=== PATIENT | female | born 1965 | race Caucasian/White ===

== ENCOUNTER → 2019-08-17 07:49 | Outpatient (CLI) | payer OTHER, SELFPAY ==
[2019-08-17 07:46] VITALS: BMI 26.6
--- NOTE | 2019-08-17 07:52 | RAD_ITS ---
STUDY: X-RAY CHEST REASON FOR EXAM: Female, 54 years old. TECHNIQUE: 2 views COMPARISON: April 09, 2017 FINDINGS: The lungs are clear and expanded. There is no demonstrated pleural abnormality. Normal size heart. Normal mediastinum and juan. Normal visualized pulmonary arteries. Normal visualized aortic arch and descending thoracic aorta. Normal visualized thoracic spine. Normal visualized ribs, clavicles, and shoulders. There is no demonstrated abnormality of the visualized soft tissue structures of the upper abdomen. RAD/Chest PA and Lateral IMPRESSION: Normal x-ray examination of the chest unchanged since April 09, 2017. Electronically Signed: Mesha Fraser, at 8:12 EST Tel , Service support ,
== END ==
PROVIDERS: Family Provider Internal Medicine; PCP Internal Medicine; Referring Provider Physician Assistant Surgical; Visit Provider Physician Assistant Surgical
DX: J20.9 Acute bronchitis, unspecified (principal)
CPT/HCPCS: 71046

== ENCOUNTER → 2019-11-22 | Outpatient (CLI) | payer OTHER, SELFPAY ==
[2019-11-22 16:49] VITALS: BMI 26.6
--- NOTE | 2019-11-22 17:00 | RAD_ITS ---
STUDY: X-RAY - RIGHT SHOULDER REASON FOR EXAM: Female, 54 years old. Pain, diminished range of motion TECHNIQUE: 5 view(s) of the shoulder. COMPARISON: None. FINDINGS: Normal glenohumeral articulation. Normal acromioclavicular joint. Normal acromion. Normal humeral head and visualized proximal humerus. The soft tissue structures are unremarkable. Normal visualized pulmonary apex. RAD/Shoulder min 2 Views IMPRESSION: Normal x-ray examination of the shoulder. Electronically Signed: Nito Magana MD at 18:33 EST , Service support ,
== END | disposition home or self-care (01) ==
LOC: MTRAD 17:00
PROVIDERS: PCP Internal Medicine; Referring Provider Physician Assistant Surgical; Visit Provider Physician Assistant Surgical
DX: S40.011A Contusion of right shoulder, initial encounter (principal)
CPT/HCPCS: 73030

== ENCOUNTER 2020-01-30 06:38 | Emergency (ER) | payer OTHER, SELFPAY ==
[2019-11-22 17:17] VITALS: BMI 27.4
[2020-01-30 06:39] VITALS: BP 148/80; PULSE 88; RESP 16; TEMP 36.7; O2SAT 98; BMI 27.4
--- NOTE | 2020-01-30 07:12 | ED.VIS.GEN ---
History of Present Illness Chief Complaint: Other, Pain/Inj Detail of Chief Complaint: RUE pain Informant: Patient Onset: Yesterday Context: Gradual Onset Timing: Continuous Quality: burning numbness Location: RUE Current Severity: Mild Maximum Severity: Severe Worsened by: nothing Relieved by: nothing that she knows of Associated Symptoms: arthralgias. numbness. 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 She also has fibromyalgia and is sensitive to pain. She has had many different medication trials and trying to keep her rheumatoid arthritis under control, and she has had many unusual medication reactions to many of these medications. Therefore, she has been on methotrexate which has been working. However, during the recent national coronavirus emergency, she has discontinued her methotrexate in order to avoid immunosuppression. She has been off of that medication for about 2 months. In that period of time, she has gradually had worsening arthralgias and stiffness. This is in her extremities and her back/spine. Yesterday she started having painful numbness in her right upper extremity. The burning goes down the anterior aspect of her upper arm, into her forearm, and all of her fingers. It persisted all night and into this morning, so she presented for evaluation of this discomfort she has never had before and assumed that it was related to her rheumatoid arthritis. She states for unknown reason, although she could not find any position that made the discomfort better or worse, upon arrival here in the ER it is much improved and basically just affecting her right thumb and distal forearm/wrist at the radial aspect. She has a history of sciatica that left her with relatively permanent numbness in her right great toe, in the past from a disc in her low back. She had an MRI remotely but cannot remember exactly what it showed. She has never had this in her neck that she knows of. She denies any recent injury. She denies headache, diplopia, bowel or bladder dysfunction, focal new neurologic symptoms elsewhere other than the right upper extremity. She denies any chest pain shortness of breath. No exertional worsening/symptoms. - Past Medical History (1) Fibromyalgia Status: Chronic (2) GERD (gastroesophageal reflux disease) Status: Chronic (3) History of hypothyroidism Status: Chronic (4) History of rheumatoid arthritis Status: Chronic (5) Raynaud phenomenon Status: Chronic (6) Calcific tendinitis of right shoulder Status: Chronic Past Medical History - Allergies and Home Meds Allergies/Adverse Reactions: Allergies Iodinated Contrast Media [CONTRASTS] Allergy (Severe, Verified 01/30/20 06:46) Shortness of breath cephalexin monohydrate [From Keflex] Allergy (Verified 01/30/20 06:46) Shortness of breath Primary Care Physician: Caron Leung MD [Primary Care Provider] - Surgical History: noncontributory Smoking Status: Never smoker Review of Systems General: Denies: Chills, Fever, Sweats Eyes: Denies: Visual changes - bilaterally, Diplopia ENT: Denies: Rhinorrhea, Sore throat Cardiovascular: Denies: Chest pain, Palpitations Respiratory: Denies: Dyspnea, Cough, Dyspnea on exertion Gastrointestinal: Denies: Abdominal pain, Nausea, Vomiting, Diarrhea, Melena, Hematochezia Genitourinary: Denies: Dysuria, Hematuria, Frequency Musculoskeletal: Reports: Arthralgias, Extremity Pain - Right upper extremity, including chronic pain in the right shoulder.. Denies: Neck pain Skin: Denies: Rash, Wounds Neurological: Reports: Parasthesia, Numbness. Denies: Headache, Weakness Physical Exam Vital Signs/Narrative: Vital Signs Temp Pulse Resp BP Pulse Ox 01/30/20 06:39 98.0 F 88 16 148/80 H 98 Inital Vital Signs reviewed: Yes General: Well nourished, Well developed, No Acute Distress Head: Normocephalic, Atraumatic Eyes: Perrl, EOMI Extremities: Tenderness - diffuse anterior right forearm, thumb, - - Patient is able to move everything but relative limited range of motion due to pain in all of her joints. No obvious Heberden or Shukri's nodes, no deviation of her fingers. Limited abduction of the right shoulder due to pain. Skin: Normal color, No rash, No Trauma Neurological: Alert, Oriented x3, Cranial nerves II-XII grossly intact, Normal Strength, Normal DTR - Symmetric, Normal Gait, Parasthesia - Right thumb and volar forearm Psychological: Normal affect, Normal Mood Diagnostic/Tx/Re-eval - Medical Decision Making I suspect patient is having 2 different problems. I think she is having a general gradual flare of her rheumatoid arthritis, and a cervical radiculopathy. Given that her symptoms are improved and she has no subjective or objective weakness, I do not think she meets any criteria for a stat MRI. However, I think an MRI of the cervical spine will probably give the answer for why she is having this new dysesthesia of the right upper extremity, which seems to involve multiple nerve roots. I discussed treating both of her issues. First, she has tramadol at home, but uses Tylenol and ibuprofen as needed for her rheumatoid arthritis pain. We discussed starting her methotrexate back, putting her on a short course of prednisone, and stronger prescription medications. She really does not want any of that at this time but will be happy to follow-up with her veterans rehabilitation counselor regarding all of those. Also, I discussed trying gabapentin for her radicular pain. She states she has a prescription at home, but with further discussion it seems that it is much lower dose than I typically prescribed for radicular or neuropathic pain. She is willing to try the higher dose, which is 300 mg 3 times daily, tapering it up over 3 days. She accepted a prescription and prefers to do started at home rather than a pill here. She will follow-up with her veterans rehabilitation counselor or PCP. ED Disposition - Plan for ED Patient: Disposition: Home or Assisted Living Diagnosis: Radiculopathy, cervical, Rheumatoid arthritis flare Instructions: ED CERVICAL RADICULOPATHY Prescriptions: Gabapentin [Neurontin] 300 mg PO TID 30 Days #87 cap Prescription Printed Referrals: Caron Leung MD [Primary Care Provider] - As soon as possible (or your Food Cashier)
== END 2020-01-30 07:36 | disposition home or self-care (01) ==
LOC: ED 07:20
PROVIDERS: Emergency Provider Emergency Medicine; PCP Internal Medicine
DX: M06.9 Rheumatoid arthritis, unspecified (principal); M54.10 Radiculopathy, site unspecified; M79.7 Fibromyalgia; K21.9 Gastro-esophageal reflux disease without esophagitis; Z79.899 Other long term (current) drug therapy
CPT/HCPCS: 99282

== ENCOUNTER 2020-12-20 07:58 | Emergency (ER) | payer OTHER, SELFPAY ==
[2020-12-20 07:59] VITALS: BP 137/73; PULSE 101; RESP 18; TEMP 36.4; O2SAT 99; BMI 24.1
--- NOTE | 2020-12-20 08:07 | EKG12_ITS ---
Test Reason : PALP Blood Pressure : / mmHG Vent. Rate : 089 BPM Atrial Rate : 089 BPM P-R Int : 176 ms QRS Dur : 076 ms QT Int : 348 ms P-R-T Axes : 068 -08 058 degrees QTc Int : 423 ms Normal sinus rhythm Low voltage QRS (Limb Leads) Confirmed by CHELSEA MONTERROSO, LINDSAY ([id number]), web editor DALTON SAEZ ([id number]) on 12/27/2020 8:20:21 AM Referred By: PARISH Confirmed By:LINDSAY TRAN MD
[2020-12-20 08:35] LABS: Absolute Lymphocyte Count 1.36 X10^3/uL (0.83-4.51); Absolute Neutrophil Count 3.9 X10^3/uL (2.0-7.7); Basophil# 0.02 X10^3/uL; Basophil% 0.3 % (0-1); Eosinophil# 0.16 X10^3/uL; Eosinophils% 2.6 % (0-5); Hematocrit 34.7 % (37-47); Hemoglobin 11.5 g/dL (12.0-15.0); Lymphocyte # 1.36 X10^3/ul (4.0); Lymphocyte % 22.4 % (19-41); Mean Corp Hgb Conc 33.1 g/dL (32-36); Mean Corpuscular Hgb 31.3 pg (27.0-32.0); Mean Corpuscular Volume 94.3 fL (81-99); Mean Platelet Vol. 9.1 fl (6.2-12.0); Monocyte# 0.58 X10^3/uL; Monocyte% 9.6 % (0-10); NRBC Flagged by Analyzer 0 % (0-5); Neutrophil # 3.93 X10^3/uL (2.7-7.7); Neutrophil % 64.8 % (47-70); Platelet Count 323 K/mm3 (150-450); RBC Distribution Width CV 14.5 % (11.6-14.6); RBC Distribution Width SD 50.3 fl (35.1-43.9); Red Blood Count 3.68 M/mm3 (4.2-5.4); White Blood Count 6.1 K/mm3 (4.4-11.0)
--- NOTE | 2020-12-20 08:45 | RAD_ITS ---
STUDY: X-RAY CHEST REASON FOR EXAM: Female, 55 years old. Chest pain . Palpitations. TECHNIQUE: Single AP portable view of the chest. COMPARISON: Comparison is made with prior study dated the 1999. FINDINGS: Mild increased markings in the right infrahilar region as well as at the left lung base. Early infiltration be ruled out. There is no demonstrated pleural abnormality. Normal size heart. Normal mediastinum and juan. Normal visualized pulmonary arteries. Normal visualized aortic arch and descending thoracic aorta. Normal visualized thoracic spine. Normal visualized ribs, clavicles, and shoulders. There is no demonstrated abnormality of the visualized soft tissue structures of the upper abdomen. RAD/Chest 1 View (Portable) IMPRESSION: Findings suggestive of early bibasilar infiltrates. Electronically Signed: Emory Carranza MD at 9:19 EDT , Service support ,
[2020-12-20] MEDS: Ondansetron 4 MG/2 ML Vial IV (08:50)
[2020-12-20] MEDS: 0.9% Normal Saline 1,000 ML 1000 ML IV (08:50)
[2020-12-20 08:56] VITALS: BP 124/64; PULSE 73; RESP 14; O2SAT 96
[2020-12-20 08:58] LABS: Anion Gap 4 (5-15); BUN 13 mg/dL (7-18); BUN/Creat Ratio 18.1 RATIO (10-20); Calcium,Total 9.6 mg/dL (8.5-10.1); Chloride 105 mmol/L (98-107); Creatinine, Serum 0.72 mg/dL (0.55-1.02); EST Glomerular Filtration Rate 89 mL/min (>60); Est Glom Filt Rate - Afr Amer 107 mL/min (>60); Estimated Creatinine Clearance 77.57 ml/min; Glucose 108 mg/dL (74-106); Magnesium 2.3 mg/dL (1.6-2.6); Potassium 3.8 mmol/L (3.5-5.1); Sodium Level 138 mmol/L (136-145); Thyroid Stim Hormone (TSH) 1.11 uIU/mL (0.358-3.74)
[2020-12-20 09:00] VITALS: BP 102/57; PULSE 83; RESP 17; O2SAT 94
--- NOTE | 2020-12-20 10:24 | ED.DCSUM_ITS ---
- ER Visit Summary Date of Service: 12/20/20 Chief Complaint: Palpitations History of Present Illness: The patient is a [address] Leung. She reports that last evening she had an episode of palpitations last approximately 10 minutes. She received describes this is a fast irregular heart rate. She denied any chest pain with it. She does report that made her nauseated and lightheaded. States that she has had this previously, but that they are usually brief. Patient reports that this morning she had an episode where her heart was racing and she measured and it was 110. It resolved on the way here. She denies any chest pain with that either. She has not had any caffeine today. She denies any chest pain or change in dyspnea exertion in the past month. Patient does have history of rheumatoid arthritis and is on methotrexate. She reports that she has a cough that is nonproductive. She denies any fever or chills. She reports that she tested negative for Covid 2 days ago. Physical Examination: Vitals: Stable. Afebrile. General: Well-nourished and well-developed. Head: Normocephalic atraumatic. Neck: Supple, no lymphadenopathy. No JVD. Nontender. Cardiovascular: Regular rate and rhythm. No murmurs. Respiratory: No respiratory distress. Clear to auscultation bilaterally. Abdominal: Soft, nontender, nondistended, normal bowel sounds. No guarding, rebound, or peritoneal signs. Back: Nontender. Extremities: Nontender, no edema. Skin: Normal color, no rash. Neurologic: Alert and oriented ?3. Cranial nerves II through XII are intact. Normal strength and sensation. Psych: Normal affect. Test Results: EKG is sinus at [address] changes. Is unchanged from 2014. Troponin is negative. CBC shows an H&H 11.5 and 34.7. Chem-7 shows a glucose 108. TSH is 1.11. Magnesium is 2.3. Clinical Impression(s) from Imaging Studies Chest X-Ray 12/20/20 08:45 IMPRESSION: Findings suggestive of early bibasilar infiltrates. Electronically Signed: Emory Carranza MD at 9:19 EDT , Service support , Emergency Department Course and Treatment: Given Zofran IV. She is resting comfortably. I looked at the patient's old chest x-ray and it looks similar to me. However, given her history of rheumatoid arthritis and on immunosuppressants she will be treated with doxycycline. Treatment Plan: Patient was discussed with Dr. Stinson. She will be discharged with 24-hour Holter monitor. She given prescription for doxycycline and Dif lucan. Instructed to follow-up with her primary care physician in 1 week for another exam. Return to the emergency department for any worsening symptoms. Disposition: To home in improved and stable condition. Impression: 1. Palpitations. This note was generated with [employer] dictation software. It may contain incorrect words, spelling, and punctuation that were not noted in review of the chart prior to signing ED Disposition - Plan for ED Patient: Instructions: ED Palpitations Prescriptions: Fluconazole [Diflucan] 150 mg PO DAILY #2 tablet Doxycycline 100 mg PO BID #14 capsule Referrals: Caron Leung MD [Primary Care Provider] - 1 Week
[2020-12-20] MEDS: Doxycycline 100 MG CAPSULE PO (11:33)
[2020-12-20 11:42] VITALS: BP 102/51; PULSE 79; RESP 16; O2SAT 100
--- NOTE | 2020-12-20 11:42 | ED.RN ---
THIS NURSE REVIEWED D/C INSTRUCTIONS WITH PT. PT VERBALIZED UNDERSTANDING OF INSTRUCTIONS. IV D/C. IV CATHETER INTACT. PT TOLERATED WELL. PT DENIES FURTHER NEEDS OR QUESTIONS AT THIS TIME. WORK EXCUSE GIVEN TO PT AND
== END 2020-12-20 11:44 | disposition home or self-care (01) ==
LOC: ED 08:35
PROVIDERS: Emergency Provider Emergency Medicine; PCP Internal Medicine
DX: R00.2 Palpitations (principal); M06.9 Rheumatoid arthritis, unspecified; Z79.899 Other long term (current) drug therapy
CPT/HCPCS: 71045; 80048; 83735; 84443; 84484; 85025; 93005; 93225; 93226; 96361; 96374; 99285; J7030; A4216; J2405

== ENCOUNTER → 2020-12-20 11:00 | Outpatient (CLI) | payer OTHER, SELFPAY ==
[2020-12-20 07:59] VITALS: BMI 24.1
== END ==
PROVIDERS: PCP Internal Medicine; Visit Provider Emergency Medicine
DX: R00.2 Palpitations (principal)
CPT/HCPCS: 93225; 93226

== ENCOUNTER 2021-02-09 14:30 | Emergency (ER) | payer OTHER, SELFPAY ==
[2021-02-09 14:32] VITALS: BP 163/77; PULSE 96; RESP 21; TEMP 37.1; O2SAT 98; BMI 25.4
--- NOTE | 2021-02-09 14:48 | EKG12_ITS ---
Test Reason : PALP Blood Pressure : / mmHG Vent. Rate : 086 BPM Atrial Rate : 086 BPM P-R Int : 180 ms QRS Dur : 074 ms QT Int : 360 ms P-R-T Axes : 069 014 065 degrees QTc Int : 430 ms Normal sinus rhythm Normal ECG Confirmed by SAMI MONTERROSO, ZEE ([id number]), newspaper managing editor PACO GAMING ([id number]) on 02/13/2021 10:12:22 A M Referred By: USAMA Confirmed By:MATTY GALLARDO MD
--- NOTE | 2021-02-09 14:49 | EDS_ITS ---
HPI History of Present Illness Chief Complaint: Palpitations Narrative Narrative: 56-year-old female presenting with epigastric discomfort. She describes it as squishy. She states he has had this a couple times in the past. She noted that December 25 she had to go home from work because her heart rate was 140 for 10 minutes. She followed up with Dr. Crowe her landing support specialist who did an echocardiogram which was normal. She states she just did a stress test yesterday which was also normal. Patient states she ate some pasta with red sauce prior to her symptoms. She does note that she has a long history of stomach problems. She does describe GERD. She states is not on anything for this currently. Patient also takes doxycycline and prednisone daily. [facility] Medical History AC joint arthropathy Acute bronchitis Anemia Arthritis Asthma Back pain Calcific tendinitis of right shoulder Contusion of right shoulder Diarrhea Difficulty balancing Esophageal tissue web Fatigue Fibromyalgia Frequent headaches GERD (gastroesophageal reflux disease) Hay fever History of esophageal dilatation History of rheumatoid arthritis Hypothyroidism Knee pain Neck pain Raynaud phenomenon Rheumatoid arthritis Rheumatoid arthritis flare Treadmill stress test negative for angina pectoris Home Medications thyroid (pork) 60 mg tablet 60 mg PO DAILY 08/15/19 [History Last Taken Unknown] folic acid 1 mg tablet 1 tab PO DAILY 11/22/19 [History Last Taken Unknown] Acetaminophen [Tylenol] 650 mg PO BID 12/20/20 [History Last Taken Unknown] meloxicam 1 tablet PO DAILY 12/20/20 [History Last Taken Unknown] famotidine [Pepcid AC] 10 mg PO DAILY #20 tab 02/09/21 [Rx Last Taken Unknown] gabapentin 300 mg PO DAILY 02/09/21 [History Last Taken Unknown] methotrexate sodium 12.5 mg PO DAILY 02/09/21 [History Last Taken Unknown] omeprazole 20 mg PO DAILY #30 capsule 02/09/21 [Rx Last Taken Unknown] prednisone 5 mg PO DAILY 02/09/21 [History Last Taken Unknown] Allergy/AdvReac Type Severity Reaction Status Date / Time Iodinated Contrast Media Allergy Severe Shortness Verified 02/09/21 14:31 [CONTRASTS] of breath cephalexin monohydrate Allergy Shortness Verified 02/09/21 14:31 [From Keflex] of breath Surgical History History of knee surgery History of tubal ligation Social History Smoking Status: Never smoker alcohol intake: never ROS ROS ED Constitutional Constitutional ED: Denies chills, fever(s) or sweats Eyes Eyes: Denies blurry vision or change in vision ENT ENT ED: Denies ear pain, rhinorrhea or sore throat Cardiovascular Cardiovascular: Denies chest pain, palpitations or racing heartbeat Respiratory/Chest Respiratory/Chest: Denies cough, dyspnea or sputum Gastrointestinal Gastrointestinal: Reports abdominal pain and other Details: Epigastric pain ; Denies constipation, diarrhea or vomiting Genitourinary Genitourinary ED: Denies dysuria, hematuria or urinary frequency Musculoskeletal Musculoskeletal: Denies arthralgias, myalgias or neck pain Integumentary Denies abscess, Abrasions or rash Neurologic Neurologic: Denies headache(s), paresthesias or weakness Psychiatric Psychiatric: Denies anxiety, depression, suicidal ideation or suicidal thoughts Endocrine Endocrinology: Denies polydipsia or polyuria EXAM Physical Exam Const Vital Signs: 02/09/21 14:32 02/09/21 14:39 02/09/21 14:54 Temperature 98.7 F Temperature Source Oral Pulse Rate 96 Respiratory Rate 21 H Respiratory Effort Normal Non-Labored Respiratory Pattern Normal Blood Pressure 163/77 H Blood Pressure Mean 105 Pulse Ox 98 96 Oxygen Delivery Method Room Air Room Air 02/09/21 15:33 Temperature Temperature Source Pulse Rate 86 Respiratory Rate 17 Respiratory Effort Respiratory Pattern Blood Pressure 110/60 Blood Pressure Mean 76 Pulse Ox 97 Oxygen Delivery Method Room Air General Appearance ED: Negative for pallor HEENT Reports normocephalic, head/scalp atraumatic and moist mucous membranes Negative for trauma Eyes PERRL and EOMs intact bilaterally Neck no JVD Resp normal respiratory effort and clear to auscultation bilaterally Auscultation: Negative for rales, rhonchi or wheezes Cardio regular rate and regular rhythm GI normal to inspection, nondistended, normoactive bowel sounds and non-distended Auscultation: normoactive bowel sounds Palpation: soft Narrative: Deferred Back/Spine no CVA tenderness General Back: Negative for CVA tenderness Cervical Spine: Negative for cervical spine tenderness Extremity normal to inspection General Extremety ED: Yes edema and tenderness General Extremity: edema Neuro oriented x3 and CN's II-XII intact bilaterally Sensorium / Orientation: alert Motor Exam: strength 5/5 throughout Psych mental status grossly normal Attitude: No agitated Skin no rashes or lesions noted and no wounds General Skin Exam: Negative for jaundice or pallor MDM MDM MDM Narrative Medical decision making narrative: Patient presented with epigastric pain which resolved. She states he is recently had an echocardiogram which is normal as well as a stress test yesterday which was normal. She does state that she ate some pasta with red sauce prior to her symptoms and does state that she has history of GERD and she is not on medication. Patient currently has no symptoms. Patient had EKG performed on arrival which is sinus rhythm at 86 bpm without signs of ischemic changes as interpreted by myself. Patient's heart score is 0. Patient's lab work is normal. Troponin is negative. Chest x-ray is interpreted by myself shows no acute cardiopulmonary process. Radiology does agree. Patient's heart score is still 1. I was able to review her history and Clinisync and did see that she had a negative stress test yesterday. Given this I feel she is safe to be discharged home. Patient was counseled on GERD symptoms as well as she has been experiencing this. I wrote her prescription for Pepcid in the short-term and she will start omeprazole. She is given return precautions. Impression: 1. Epigastric pain Lab Data Labs: Laboratory Results - last 24 hr 02/09/21 02/09/21 14:50 14:50 WBC 9.7 RBC 3.52 L Hgb 10.8 L Hct 32.7 L MCV 92.9 MCH 30.7 MCHC 33.0 RDW Std Deviation 45.9 H RDW Coeff of [place] 13.6 Plt Count 443 MPV 9.3 Immature Gran % (Auto) 0.400 Neut % (Auto) 78.9 H Lymph % (Auto) 15.3 L [place] % (Auto) 4.9 Eos % (Auto) 0.1 Baso % (Auto) 0.4 Absolute Neuts (auto) 7.6 Absolute Lymphs (auto) 1.48 Nucleated RBC % 0 Sodium 137 Potassium 4.1 Chloride 102 Carbon Dioxide 28.0 Anion Gap 7 BUN 19 H Creatinine 0.81 Estim Creat Clear Calc 68.12 Est GFR (MDRD) Af Amer 93 Est GFR (MDRD) Non-Af 77 BUN/Creatinine Ratio 23.3 H Glucose 97 Calcium 9.5 Total Bilirubin 0.30 Direct Bilirubin 0.10 AST 16 ALT 24 Alkaline Phosphatase 111 Troponin I < 0.015 Total Protein 8.2 Albumin 3.9 Globulin 4.3 H Lipase 127 Radiography Diagnostic Testing: Radiology Impression Chest X-Ray 02/09/21 14:58 IMPRESSION: No acute pulmonary process Electronically Signed: Nito Magana MD at 15:08 EDT , Service support , Discharge Plan Triage Chief Complaint: Palpitations ED Provider: Nj Marques Dx/Rx/DC Orders Instructions: ED Epigastric Pain (Uncertain Cause) Prescriptions: New omeprazole 20 mg capsule,delayed release(DR/EC) 20 mg PO DAILY Qty: 30 RF: 0 famotidine [Pepcid AC] 10 mg tablet 10 mg PO DAILY Qty: 20 RF: 0 No Action thyroid (pork) [New Era Thyroid] 60 mg tablet 60 mg PO DAILY RF: 0 folic acid 1 mg tablet 1 tab PO DAILY RF: 0 Acetaminophen [Tylenol] 325 MG tablet 650 mg PO BID RF: 0 meloxicam 15 MG tablet 1 tablet PO DAILY RF: 0 prednisone 5 mg tablet 5 mg PO DAILY RF: 0 methotrexate sodium 2.5 mg tablet 12.5 mg PO DAILY RF: 0 gabapentin 100 mg capsule 300 mg PO DAILY RF: 0 Primary Care Provider: Fran Peguero Referrals: Fran Peguero MD [Primary Care Provider] -
[2021-02-09 14:54] VITALS: O2SAT 96
--- NOTE | 2021-02-09 14:58 | RAD_ITS ---
STUDY: X-RAY CHEST REASON FOR EXAM: Female, 56 years old. Chest pain/pressure TECHNIQUE: Single AP portable view of the chest. COMPARISON: 12/20/2020 FINDINGS: EKG leads overlie the chest The lungs are clear and expanded. There is no demonstrated pleural abnormality. Normal size heart. Normal mediastinum and juan. Normal visualized pulmonary arteries. Normal visualized aortic arch and descending thoracic aorta. Normal visualized thoracic spine. Normal visualized ribs, clavicles, and shoulders. There is no demonstrated abnormality of the visualized soft tissue structures of the upper abdomen. RAD/Chest 1 View (Portable) IMPRESSION: No acute pulmonary process Electronically Signed: Nito Magana MD at 15:08 EDT , Service support ,
[2021-02-09 15:14] LABS: Absolute Lymphocyte Count 1.48 X10^3/uL (0.83-4.51); Absolute Neutrophil Count 7.6 X10^3/uL (2.0-7.7); Basophil# 0.04 X10^3/uL; Basophil% 0.4 % (0-1); Eosinophil# 0.01 X10^3/uL; Eosinophils% 0.1 % (0-5); Hematocrit 32.7 % (37-47); Hemoglobin 10.8 g/dL (12.0-15.0); Lymphocyte # 1.48 X10^3/ul (0.83-4.51); Lymphocyte % 15.3 % (19-41); Mean Corpuscular Hgb 30.7 pg (27.0-32.0); Mean Corpuscular Volume 92.9 fL (81-99); Mean Platelet Vol. 9.3 fl (6.2-12.0); Monocyte# 0.47 X10^3/uL; Monocyte% 4.9 % (0-10); NRBC Flagged by Analyzer 0 % (0-5); Neutrophil # 7.64 X10^3/uL (2.7-7.7); Neutrophil % 78.9 % (47-70); Platelet Count 443 K/mm3 (150-450); RBC Distribution Width CV 13.6 % (11.6-14.6); RBC Distribution Width SD 45.9 fl (35.1-43.9); Red Blood Count 3.52 M/mm3 (4.2-5.4); White Blood Count 9.7 K/mm3 (4.4-11.0)
[2021-02-09 15:28] LABS: AST(SGOT) 16 U/L (15-37); Alanine Aminotransfer ALT/SGPT 24 U/L (13-56); Albumin, Serum 3.9 g/dL (3.2-5.0); Alkaline Phosphatase 111 U/L (45-117); Anion Gap 7 (5-15); BUN 19 mg/dL (7-18); BUN/Creat Ratio 23.3 RATIO (10-20); Calcium,Total 9.5 mg/dL (8.5-10.1); Chloride 102 mmol/L (98-107); Creatinine, Serum 0.81 mg/dL (0.55-1.02); EST Glomerular Filtration Rate 77 mL/min (>60); Est Glom Filt Rate - Afr Amer 93 mL/min (>60); Estimated Creatinine Clearance 68.12 ml/min; Globulin 4.3 g/dL (2.2-4.2); Glucose 97 mg/dL (74-106); Lipase 127 U/L (73-393); Potassium 4.1 mmol/L (3.5-5.1); Protein, Total 8.2 g/dL (6.4-8.2); Sodium Level 137 mmol/L (136-145)
[2021-02-09 15:33] VITALS: BP 110/60; PULSE 86; RESP 17; O2SAT 97
[2021-02-09 16:44] VITALS: BP 104/59; PULSE 73; RESP 18; O2SAT 98
== END 2021-02-09 16:44 | disposition home or self-care (01) ==
PROVIDERS: Emergency Provider Student in an Organized Health Care Education/Training Program; PCP Family Medicine
DX: R00.2 Palpitations (principal); M06.9 Rheumatoid arthritis, unspecified; J45.909 Unspecified asthma, uncomplicated; M79.7 Fibromyalgia; K21.9 Gastro-esophageal reflux disease without esophagitis; E03.9 Hypothyroidism, unspecified; Z79.52 Long term (current) use of systemic steroids; Z79.899 Other long term (current) drug therapy
CPT/HCPCS: 71045; 80048; 80076; 83690; 84484; 85025; 93005; 99284; A4216

== ENCOUNTER 2021-02-26 17:30 | Outpatient (RCR) | payer OTHER, SELFPAY ==
--- NOTE | 2021-02-26 19:10 | HP.PTEVAL ---
Patient's Visit Information JOSS LAWRENCE is a 56 year old F referred to Physical Therapy by MARK RHODES with a diagnosis of LUMBAR SPONDYLOSIS AND R LUMBAR RADICULITIS. Date of Evaluation: 02/26/21 Physical Therapist: Татьяна Godinez, PT, Cert MDT - Visit Plan Frequency: 2-3x /Week Duration: 4-6 Weeks Plan: [facility] AND [facility] [employer] PATIENTS NEW WORK SCHEDULE WILL ALLOW FOR POSTURE CORRECTION/STRENGTHENING, INSTRUCTION IN APPROPRIATE BODY MECHANICS AND ACTIVITY MODIFICATIONS. DLS STARTING WITH A NEUTRAL SPINE PROGRESSING ROM TOLERATED. KIERRA LE ROM, STRETCHING AND STRENGTHENING. HEP INSTRUCTION. 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 SITTING. 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 Disability: NO. Present symptoms: CONSTANT LOW BACK PAIN. CONSTANT RIGHT LE PAIN, NUMBNESS AND TINGLIN TO THE TOES. INTERMITTENT LEFT BUTTOCK PAIN, NUMBNESS AND TINGLING. Present since: ABOUT 18 MONTHS AGO. Pain Scale: WORST 8/10, LEAST 3/10. Currently: 5/10. Commenced as a result of: NO APPARENT REASON. Symptoms at onset: A WARM FEELING GOING DOWN BOTH LEGS. Worse: STANDING, WALKING, LYING FLAT ON BACK, LYING PRONE, R SDLY. Better: PREDNISONE, MALOXACAM. Disturbed sleep: YES. Previous history/Previous treatment: CONSULT WITH DR. RHODES WITH THE [facility] - ONE VISIT. PT CONSULT FROM DR. RHODES FOR RADICULITIS. PATIENT REPORTS SHE HAS BEEN GOING TO A [facility] MOST OF HER LIFE. NO BACK SURGERY. NO PAIN MGMT OR BLAYNE'S. NO PRIOR PT FOR BACK. Coughing/sneezing: NEGATIVE. Gait: TOWARD THE END OF THE DAY RIGHT LEG DRAGS, TIME AND DISTANCE LIMITED DUE TO PAIN. LIMPS ON BOTH LEGS AND PATIENT RELATES AT LEAST PART OF HER LIMPING TO HER KNEES AND RELATES SOME OF HER BACK PAIN TO LIMPING DUE TO KNEE PROBLEMS. Difficulty initiating urinatin: NO. Accidents: NO. Unexplained weight loss: NO. Imaging: LOW BACK X-RAYS RECENTLY BY DR. RHODES AND SHE RECALLS HIM TALKING ABOUT THE DISCS AND PINCHING. OTHER: CONSULT FOR KIERRA KNEE SURGERY WITH ORTHO PENDING TOMORROW. - Objective Sitting/Standing Posture: POOR. RIGHT ILIAC CREST HIGHER THAN LEFT. Lordosis: DECREASED. Active Correction of posture: WORSE IN STANDING. NE IN SITTING. Other Observations: INDEP GAIT INTO PT WITH DECREASED CADANCE AND LIMPING ON KIERRA LE'S. NO LOB. INDEP TRANSFER FROM SIT TO STAND WITHOUT UE ASSIST. Motor deficit: KIERRA LE'S GROSSLY 4/5 WITH MMT'ING. Sensory deficit: KIERRA LE LIGHT TOUCH SENSATION APPEARS INTACT AND SYMMETRICAL. ROM deficit: KIERRA LE'S WFL EXCEPT TIGHT HIP FLEXORS. Reflexes: UNABLE TO ELICIT KIERRA LE DTR'S. Dural Signs: POSITIVE RIGHT LE. Lumbar mvmt loss: flex - NIL. ext - CHARY. R SG - MOD. L SG - MOD. Core strength: POOR. Palpation: INCREASED MUSCLE TONE OF KIERRA PARASPINALS AND C/O ACUTE TENDERNESS THROUGHOUT LOWER THORACIC, LUMBAR, SACRAL AND KIERRA BUTTOCK AND HIP REGIONS. TREATMENT: NEUROMUSCULAR REEDUCATION - RETRAINING OF MVMT AND POSTURE FOR SITTING, LYING AND STANDING ACTIVITIES. - Goals Goal 1:: DECREASE C/O LOW BACK AND KIERRA LE SX'S. Goal Time Frame: 4-6 Weeks Goal 2:: IMPROVE PERSONAL CARE, LIFTING, WALKING, SITTING, STANDING, SLEEP, SOCIAL LIFE, TRAVEL AND WORK/HOMEMAKING FUNCTION Goal Time Frame: 4-6 Weeks Goal 3:: INSTRUCT IN PROPHYLAXIS Goal Time Frame: 4-6 Weeks - Anticipated Interventions Patient/Client Instruction: Educate patient on: Condition, Plan of Care, Risk Factors For the Purpose of:: To improve self management Therapeutic Exercise to Include: Strength training, Body mechanics, Postural training, Gait and locomotor training, Neuromotor development, Dynamic Lumbar Stabilization For the Purpose of:: To decrease pain, To improve muscle performance and motor function, To increase tolerance to activity/condition/position, To improve ability of physical actions for home/community/work/leisure Thank you for the opportunity to evaluate your patient. For Medicare and Medicare HMO plans, please review the plan of care and approve it. It will need to be FAXED BACK to us at [phone] for Medicare purposes. For Medicare only, by signing this I certify the plan of care. Please let me know if there are questions or concerns regarding this plan of care. Physician Signature: Date:
--- NOTE | 2021-07-31 13:03 | HP.PT.NRP ---
JOSS LAWRENCE was seen in my office for initial evaluation on 02/26/21. The following Plan of Care was established for this patient: Initial Frequency: 2-3x /Week Initial Duration: 4-6 Weeks Patient/Client Instruction: Educate patient on: Condition, Plan of Care, Risk Factors For the Purpose of:: To improve self management Therapeutic Exercise to Include: Strength training, Body mechanics, Postural training, Gait and locomotor training, Neuromotor development, Dynamic Lumbar Stabilization For the Purpose of:: To decrease pain, To improve muscle performance and motor function, To increase tolerance to activity/condition/position, To improve ability of physical actions for home/community/work/leisure This patient was last seen in our office 02/26/21. Pertinent comments regarding their Physical therapy will appear below: This patient has not returned to Physical Therapy and is appropriate to return to MD for further follow-up as needed. At this point I will be discontinuing this patient from physical therapy. I would be happy to see this patient again in the future if found appropriate by the physician. Thank you! Татьяна Godinez, PT, Cert MDT Balance/Gait/Functional tests - Balance/Special Test Scores Oswestry Low Back Score: 30
== END 2021-02-26 19:00 | disposition home or self-care (01) ==
LOC: PT 17:30
PROVIDERS: PCP Family Medicine
DX: M47.26 Other spondylosis with radiculopathy, lumbar region (principal)
CPT/HCPCS: 97112; 97162

== ENCOUNTER 2022-09-06 02:22 | Emergency (ER) | payer OTHER, SELFPAY ==
[2022-09-06 02:23] VITALS: BP 139/58; PULSE 76; RESP 16; TEMP 35.7; O2SAT 96; BMI 23.8
[2022-09-06 02:25] VITALS: BP 139/58; PULSE 76; RESP 16; TEMP 35.7; O2SAT 96
--- NOTE | 2022-09-06 02:48 | EKG12_ITS ---
Test Reason : SOB Blood Pressure : / mmHG Vent. Rate : 071 BPM Atrial Rate : 071 BPM P-R Int : 180 ms QRS Dur : 088 ms QT Int : 392 ms P-R-T Axes : 073 012 051 degrees QTc Int : 425 ms Normal sinus rhythm Low voltage QRS (Limb Leads) Confirmed by CHELSEA MONTERROSO, LINDSAY ([id number]), publication editor PACO GAMING ([id number]) on 09/07/2022 7:30:25 AM Referred By: Angela Confirmed By:LINDSAY TRAN MD
[2022-09-06 02:51] VITALS: O2SAT 97
[2022-09-06 03:02] VITALS: PULSE 72; RESP 16
[2022-09-06] MEDS: Ipratropium/Albuterol Sulfate 3 ML AMPUL.NEB INHALATION (03:02)
[2022-09-06 03:06] LABS: Absolute Lymphocyte Count 1.23 X10^3/uL (0.83-4.51); Absolute Neutrophil Count 2.5 X10^3/uL (2.0-7.7); Basophil# 0.01 X10^3/uL; Basophil% 0.2 % (0-1); Eosinophil# 0.01 X10^3/uL; Eosinophils% 0.2 % (0-5); Hematocrit 35.3 % (37-47); Hemoglobin 11.3 g/dL (12.0-15.0); Lymphocyte # 1.23 X10^3/ul (0.83-4.51); Lymphocyte % 28.9 % (19-41); Mean Corpuscular Hgb 28.7 pg (27.0-32.0); Mean Corpuscular Volume 89.6 fL (81-99); Mean Platelet Vol. 8.9 fl (6.2-12.0); Monocyte# 0.47 X10^3/uL; NRBC Flagged by Analyzer 0 % (0-5); Neutrophil # 2.53 X10^3/uL (2.7-7.7); Neutrophil % 59.5 % (47-70); Platelet Count 310 K/mm3 (150-450); RBC Distribution Width CV 15.7 % (11.6-14.6); RBC Distribution Width SD 50.8 fl (35.1-43.9); Red Blood Count 3.94 M/mm3 (4.2-5.4); White Blood Count 4.3 K/mm3 (4.4-11.0)
[2022-09-06 03:19] LABS: D-Dimer Quantitative (DVT/PE) 2.75 FEU/ug/m (0.27-0.49)
--- NOTE | 2022-09-06 03:20 | RAD_ITS ---
INDICATION: cough EXAMINATION/TECHNIQUE: X-RAY - XR Chest 2 Views COMPARISON: Chest x-ray from 02/09/2021 FINDINGS: LINES/DEVICES: None. LUNGS: Slightly hyperexpanded lungs again noted. No pulmonary edema or focal airspace consolidation. No sizable pleural effusion. No pneumothorax detected. MEDIASTINUM AND CARDIOVASCULAR STRUCTURES: Heart size within normal limits. Mediastinal contours unremarkable. BONES AND SOFT TISSUES: No acute findings. RAD/Chest PA and Lateral IMPRESSION: COPD Electronically Signed: Sean Christian MD at 3:43 EST ,
[2022-09-06 03:29] LABS: BNP,B-Type NATRIURETIC PEPTIDE 29.4 pg/mL (0-100)
[2022-09-06 04:01] LABS: Anion Gap 3 (5-15); BUN 10 mg/dL (7-18); BUN/Creat Ratio 19.7 RATIO (10-20); Calcium,Total 9.3 mg/dL (8.5-10.1); Chloride 107 mmol/L (98-107); Creatinine, Serum 0.51 mg/dL (0.55-1.02); EST Glomerular Filtration Rate 132 mL/min (>60); Est Glom Filt Rate - Afr Amer 160 mL/min (>60); Estimated Creatinine Clearance 106.87 ml/min; Glucose 112 mg/dL (74-106); Magnesium 2.5 mg/dL (1.6-2.6); Potassium 3.9 mmol/L (3.5-5.1); Sodium Level 140 mmol/L (136-145); Troponin-I HS 4 pg/mL (3.0-54.0)
[2022-09-06 04:19] VITALS: BP 120/57; PULSE 85; RESP 18; TEMP 36.6; O2SAT 97
--- NOTE | 2022-09-06 04:32 | EDS_ITS ---
HPI History of Present Illness Chief Complaint: Shortness of Breath Narrative Narrative: Patient is a 57-year-old female with past medical history of of rheumatoid arthritis who is on methotrexate secondary to this. She states she was seen previously about 7 days ago for congestion cough and shortness of breath and diagnosed with bronchitis and started on an antibiotic. She states she has been taking this as directed but there has been no symptom improvement. She states tonight she does felt like she was having difficulty sleeping because of this persistent shortness of breath sensation which she describes as her inability to get air in. She denies any chest pain nausea vomiting diaphoresis associated with this. She states that as her symptoms seem to be worsening instead of improving she presents for evaluation [facility] Medical History AC joint arthropathy Acute bronchitis Anemia Arthritis Asthma Back pain Calcific tendinitis of right shoulder Contusion of right shoulder Diarrhea Difficulty balancing Esophageal tissue web Fatigue Fibromyalgia Frequent headaches GERD (gastroesophageal reflux disease) Hay fever History of esophageal dilatation History of rheumatoid arthritis Hypothyroidism Knee pain Neck pain Raynaud phenomenon Rheumatoid arthritis Rheumatoid arthritis flare Treadmill stress test negative for angina pectoris Home Medications thyroid (pork) 60 mg tablet ([place] Thyroid) 60 mg PO DAILY 08/15/19 [History Last Taken Unknown] folic acid 1 mg tablet 1 tab PO DAILY 11/22/19 [History Last Taken Unknown] Acetaminophen [Tylenol] 650 mg PO BID 12/20/20 [History Last Taken Unknown] meloxicam 15 mg tablet 1 tablet PO DAILY 12/20/20 [History Last Taken Unknown] famotidine 10 mg tablet (Pepcid AC) 10 mg PO DAILY #20 tabs 02/09/21 [Rx Last Taken Unknown] gabapentin 100 mg capsule 300 mg PO DAILY 02/09/21 [History Last Taken Unknown] methotrexate sodium 2.5 mg tablet 12.5 mg PO DAILY 02/09/21 [History Last Taken Unknown] omeprazole 20 mg capsule,delayed release 20 mg PO DAILY #30 CAPSULES 02/09/21 [Rx Last Taken Unknown] prednisone 5 mg tablet 5 mg PO DAILY 02/09/21 [History Last Taken Unknown] amoxicillin 875 mg-potassium clavulanate 125 mg tablet 1 tab PO Q12H 10 days #20 tabs 09/03/22 [Rx Last Taken Unknown] fluconazole 150 mg tablet (Diflucan) 150 mg PO Q3D 2 doses #2 tabs 09/03/22 [Rx Last Taken Unknown] methylprednisolone 4 mg tablets in a dose pack (Medrol (Jose)) 4 mg PO PER PKG DIR 6 days #21 tabs 09/03/22 [Rx Last Taken Unknown] nirmatrelvir 300 mg (150 mg x2)-ritonavir 100 mg tablet,dose pack(EUA) (Paxlovid) See Rx Instructions PO .COMPLEX #30 tabs 09/06/22 [Rx Last Taken Unknown] Allergy/AdvReac Type Severity Reaction Status Date / Time Iodinated Contrast Media Allergy Severe Shortness Verified 09/06/22 02:23 [CONTRASTS] of breath cephalexin monohydrate Allergy Shortness Verified 09/06/22 02:23 [From Keflex] of breath Surgical History History of knee surgery History of tubal ligation Social History Smoking Status: Never smoker alcohol intake: never ROS ROS ED Constitutional Constitutional ED: Denies chills or fever(s) ENT ENT ED: Reports rhinorrhea and sore throat Cardiovascular Cardiovascular: Denies chest pain Respiratory/Chest Respiratory/Chest: Reports cough and dyspnea Gastrointestinal Gastrointestinal: Denies abdominal pain, diarrhea, nausea or vomiting Genitourinary Genitourinary ED: Denies dysuria Musculoskeletal Musculoskeletal: Reports myalgias Integumentary Denies rash Neurologic Neurologic: Denies headache(s) Hematologic/Lymphatic Hematologic/Lymphatic: Denies easy bleeding or easy bruising EXAM Physical Exam Const Vital Signs: 09/06/22 02:23 09/06/22 02:25 09/06/22 02:51 Temperature 96.2 F L 96.2 F L Temperature Source Temporal Temporal Pulse Rate 76 76 Respiratory Rate 16 16 Respiratory Effort Normal Non-Labored Respiratory Depth Normal Respiratory Pattern Normal Blood Pressure 139/58 H 139/58 H Blood Pressure Mean 85 85 Pulse Ox 96 96 Oxygen Delivery Method Room Air Room Air Room Air 09/06/22 03:02 09/06/22 04:19 09/06/22 04:38 Temperature 97.8 F Temperature Source Temporal Pulse Rate 72 85 68 Respiratory Rate 16 18 13 Respiratory Effort Respiratory Depth Respiratory Pattern Normal Blood Pressure 120/57 L 116/71 Blood Pressure Mean 78 Pulse Ox 97 96 Oxygen Delivery Method Room Air Positive well nourished and well developed General Appearance ED: well developed HEENT Reports moist mucous membranes HEENT Narrative: Cobblestoning the posterior pharynx consistent with sinus drainage without airway edema or compromise Eyes PERRL and EOMs intact bilaterally Neck supple and no JVD Chest Wall palpation of chest normal Resp normal respiratory effort Resp Narrative: Breath sounds are slight diminished with faint rhonchi in the bilateral bases but no nasal flaring retractions tachypnea or accessory muscle use Cardio regular rate and regular rhythm Rate: other Other Details: Radial pulses are +2-4 bilaterally are equal and symmetric GI normal to inspection, nondistended, normoactive bowel sounds, non-tender and non-distended GI Narrative: No voluntary guarding or rigidity no pulsatile mass Auscultation: normoactive bowel sounds Palpation: soft Extremity normal to inspection Extremity Narrative: No asymmetric edema no pitting edema negative Homans' sign bilaterally Neuro oriented x3 and CN's II-XII intact bilaterally Sensorium / Orientation: alert Psych mental status grossly normal Skin no rashes or lesions noted MDM MDM MDM Narrative Medical decision making narrative: Patient presented to the ER afebrile in no acute respiratory distress satting in the high 90s on room air her constellation of symptoms are concerning for viral infection and secondary to this COVID and influenza swabs will be obtained. However as patient reported shortness of breath with lung sounds that were not grossly inflamed I did elect to perform EKG and troponin. EKG is sinus rhythm and troponin is normal at 4. The patient's D-dimer came back elevated at 2.75 and we discussed obtaining a CTA to completely rule out PE as a cause of her symptoms. Patient states she cannot have a CTA because of her reaction to the contrast dye even if she is medicated. She is not tachycardic there is no pulmonary strain on her EKG she is not hypoxic and she does not have pleuritic chest pain. Therefore my concern for PE is low and I feel that the elevation to the D-dimer is most likely from the COVID infection which we know can cause elevation to this value. We discussed staying in the hospital for possible VQ scan. Patient states that she does not want to wait in the hospital for this as her vitals are stable and my concern for PE is low. Therefore this time as she is not hypoxic or requiring supplemental oxygen she has no respiratory distress or no signs of cardiac event she can be placed on Paxlovid and discharged home Lab Data Attestation: I reviewed the patient's lab results. Labs: Laboratory Results - last 24 hr 09/06/22 09/06/22 09/06/22 03:00 03:00 03:00 WBC 4.3 L RBC 3.94 L Hgb 11.3 L Hct 35.3 L MCV 89.6 MCH 28.7 MCHC 32.0 RDW Std Deviation 50.8 H RDW Coeff of [place] 15.7 H Plt Count 310 MPV 8.9 Immature Gran % (Auto) 0.200 Neut % (Auto) 59.5 Lymph % (Auto) 28.9 [place] % (Auto) 11.0 H Eos % (Auto) 0.2 Baso % (Auto) 0.2 Absolute Neuts (auto) 2.5 Absolute Lymphs (auto) 1.23 Nucleated RBC % 0 D-Dimer Quant (PE/DVT) 2.75 H* Sodium 140 Potassium 3.9 Chloride 107 Carbon Dioxide 30.0 Anion Gap 3 L BUN 10 Creatinine 0.51 L Estim Creat Clear Calc 106.87 Est GFR (MDRD) Af Amer 160 Est GFR (MDRD) Non-Af 132 BUN/Creatinine Ratio 19.7 Glucose 112 H Calcium 9.3 Magnesium 2.5 Troponin I High Sens 4 B-Natriuretic Peptide 09/06/22 03:00 WBC RBC Hgb Hct MCV MCH MCHC RDW Std Deviation RDW Coeff of [place] Plt Count MPV Immature Gran % (Auto) Neut % (Auto) Lymph % (Auto) [place] % (Auto) Eos % (Auto) Baso % (Auto) Absolute Neuts (auto) Absolute Lymphs (auto) Nucleated RBC % D-Dimer Quant (PE/DVT) Sodium Potassium Chloride Carbon Dioxide Anion Gap BUN Creatinine Estim Creat Clear Calc Est GFR (MDRD) Af Amer Est GFR (MDRD) Non-Af BUN/Creatinine Ratio Glucose Calcium Magnesium Troponin I High Sens B-Natriuretic Peptide 29.4 Radiography Diagnostic Testing: Clinical Impression(s) from Imaging Studies Chest X-Ray 09/06/22 03:20 IMPRESSION: COPD Electronically Signed: Sean Christian MD at 3:43 EST , Chest x-ray as interpreted by the emergency medicine physician reveals hyperinflated lungs consistent with COPD without acute infiltrate pneumothorax or pleural effusion Discharge Plan Triage Chief Complaint: Shortness of Breath ED Provider: Negrito Miller Dx/Rx/DC Orders Clinical Impression: COVID-19, Influenza A Instructions: Coronavirus Disease 2019 (COVID-19): Caring for Yourself or Others, ED Influenza (Adult) Prescriptions: New Paxlovid (EUA) 300 mg (150 mg x 2)-100 mg tablets,dose pack See Rx Instructions .ROUTE .COMPLEX Qty: 30 0RF Rx Instructions: take TWO 150 mg tablets of nirmatrelvir with ONE 100 mg tablet of ritonavir twice daily for 5 days No Action thyroid (pork) [[place] Thyroid] 60 mg tablet 60 mg PO DAILY folic acid 1 mg tablet 1 tab PO DAILY Label Comments: TAKE 1 TABLET BY MOUTH EVERY DAY amoxicillin-pot clavulanate 875-125 mg tablet 1 tab PO Q12H 10 Days Qty: 20 0RF methylprednisolone [Medrol (Jose)] 4 mg tablets,dose pack 4 mg PO PER PKG DIR 6 Days Qty: 21 0RF fluconazole [Diflucan] 150 mg tablet 150 mg PO Q3D Qty: 2 0RF Rx Instructions: may repeat second dose 72 hrs after first dose if symptoms persist Acetaminophen [Tylenol] 325 MG tablet 650 mg PO BID meloxicam 15 MG tablet 1 tablet PO DAILY prednisone 5 mg tablet 5 mg PO DAILY Label Comments: TAKE 1 TABLET BY MOUTH EVERY DAY methotrexate sodium 2.5 mg tablet 12.5 mg PO DAILY Label Comments: TAKE 5 TABLETS BY MOUTH ONCE EACH WEEK. gabapentin 100 mg capsule 300 mg PO DAILY Label Comments: TAKE 3 CAPSULES BY MOUTH DAILY AT BEDTIME. omeprazole 20 mg capsule,delayed release(DR/EC) 20 mg PO DAILY Qty: 30 0RF famotidine [Pepcid AC] 10 mg tablet 10 mg PO DAILY Qty: 20 0RF Primary Care Provider: Caron Leung Referrals: Caron Leung MD [Primary Care Provider] - Activity Restrictions/Additional Instructions: You tested positive for both influenza A and COVID today. Your chest x-ray did not show pneumonia and there are no signs of heart damage. Talk to your family doctor about a outpatient VQ scan based on your symptoms and elevated D-dimer but I feel that this lab elevation is related to your COVID diagnosis and not true blood clot as your heart rate is normal there are no EKG changes and your pulse ox is 98 to 100% on room air. Take the Paxlovid as directed to help resolve your COVID faster and return to the ER should you have any further concerns Disposition Disposition: Home, Self Care Discharge Date/Time: 09/06/22 04:44
[2022-09-06 04:38] VITALS: BP 116/71; PULSE 68; RESP 13; O2SAT 96
== END 2022-09-06 04:44 | disposition home or self-care (01) ==
PROVIDERS: Emergency Provider Emergency Medicine; PCP Internal Medicine; Visit Provider Emergency Medicine
DX: U07.1 COVID-19 (principal); M06.9 Rheumatoid arthritis, unspecified; J44.0 Chronic obstructive pulmonary disease with (acute) lower respiratory infection; J10.1 Influenza due to other identified influenza virus with other respiratory manifestations; M79.7 Fibromyalgia; K21.9 Gastro-esophageal reflux disease without esophagitis; E03.9 Hypothyroidism, unspecified; Z79.899 Other long term (current) drug therapy
CPT/HCPCS: 71046; 80048; 83735; 83880; 84484; 85025; 85379; 87428; 93005; 94640; 99282; A4216

== ENCOUNTER 2022-09-10 11:22 | Emergency (ER) | payer OTHER, SELFPAY ==
[2022-09-10 11:22] VITALS: BP 160/90; PULSE 131; RESP 16; TEMP 36.6; O2SAT 97; BMI 23.1
--- NOTE | 2022-09-10 11:38 | EKG12_ITS ---
Test Reason : SOB Blood Pressure : / mmHG Vent. Rate : 088 BPM Atrial Rate : 088 BPM P-R Int : 178 ms QRS Dur : 080 ms QT Int : 358 ms P-R-T Axes : 073 013 071 degrees QTc Int : 433 ms Normal sinus rhythm Normal ECG Confirmed by OMAYRA MONTERROSO, ALEXA ([id number]), acquisition editor [employer] GAMING ([id number]) on 09/11/2022 11:09:29 AM Referred By: Confirmed By:ALEXA CUTLER MD
[2022-09-10] MEDS: 0.9% Normal Saline 1,000 ML 1000 ML IV (11:59)
[2022-09-10 12:05] VITALS: BP 120/72; PULSE 85; RESP 18; O2SAT 99
--- NOTE | 2022-09-10 12:10 | RAD_ITS ---
STUDY: X-RAY CHEST REASON FOR EXAM: Female, 57 years old. Shortness of breath. Dyspnea and tachycardia. TECHNIQUE: Comparison is made with prior study dated 09/06/2022. COMPARISON: None. FINDINGS: EKG electrodes are seen. Pectus excavatum deformity. There is hyperinflation of the lungs consistent with chronic obstructive lung disease (COPD). There is no demonstrated pleural abnormality. Normal size heart. Normal mediastinum and juan. Normal visualized pulmonary arteries. Normal visualized aortic arch and descending thoracic aorta. Normal visualized thoracic spine. Normal visualized ribs, clavicles, and shoulders. There is no demonstrated abnormality of the visualized soft tissue structures of the upper abdomen. RAD/Chest PA and Lateral IMPRESSION: Hyperinflation. The lungs are clear. Electronically Signed: Emory Carranza MD at 12:30 EST ,
[2022-09-10 12:19] LABS: Absolute Lymphocyte Count 4.26 X10^3/uL (0.83-4.51); Absolute Neutrophil Count 6.1 X10^3/uL (2.0-7.7); Basophil# 0.04 X10^3/uL; Basophil% 0.4 % (0-1); Eosinophil# 0.06 X10^3/uL; Eosinophils% 0.5 % (0-5); Hematocrit 40.5 % (37-47); Hemoglobin 13.1 g/dL (12.0-15.0); Lymphocyte # 4.26 X10^3/ul (0.83-4.51); Lymphocyte % 37.7 % (19-41); Mean Corp Hgb Conc 32.3 g/dL (32-36); Mean Corpuscular Hgb 28.9 pg (27.0-32.0); Mean Corpuscular Volume 89.4 fL (81-99); Mean Platelet Vol. 9.3 fl (6.2-12.0); Monocyte# 0.77 X10^3/uL; Monocyte% 6.8 % (0-10); NRBC Flagged by Analyzer 0 % (0-5); Neutrophil # 6.11 X10^3/uL (2.7-7.7); Neutrophil % 54.1 % (47-70); Platelet Count 405 K/mm3 (150-450); RBC Distribution Width CV 15.9 % (11.6-14.6); RBC Distribution Width SD 51.5 fl (35.1-43.9); Red Blood Count 4.53 M/mm3 (4.2-5.4); White Blood Count 11.3 K/mm3 (4.4-11.0)
[2022-09-10 12:25] LABS: ALB/GLOB Ratio 0.9 RATIO (0.9-2.4); AST(SGOT) 17 U/L (15-37); Alanine Aminotransfer ALT/SGPT 33 U/L (13-56); Albumin, Serum 3.9 g/dL (3.2-5.0); Alkaline Phosphatase 106 U/L (45-117); Anion Gap 7 (5-15); BUN 13 mg/dL (7-18); BUN/Creat Ratio 22.7 RATIO (10-20); Calcium,Total 9.5 mg/dL (8.5-10.1); Chloride 101 mmol/L (98-107); Creatinine, Serum 0.57 mg/dL (0.55-1.02); EST Glomerular Filtration Rate 115 mL/min (>60); Est Glom Filt Rate - Afr Amer 139 mL/min (>60); Estimated Creatinine Clearance 95.63 ml/min; Globulin 4.2 g/dL (2.2-4.2); Glucose 92 mg/dL (74-106); Potassium 3.4 mmol/L (3.5-5.1); Protein, Total 8.1 g/dL (6.4-8.2); Sodium Level 137 mmol/L (136-145)
--- NOTE | 2022-09-10 12:51 | EDS_ITS ---
HPI History of Present Illness Chief Complaint: Shortness of Breath Narrative Narrative: Patient has had symptoms for about a week, however 4 days ago she was diagnosed with COVID and influenza A, she is now short of breath has felt palpitations. For the past 3 days she has been improving until yesterday when she started feeling bad. She has no current fevers, she has no back pain or tearing sensation. There is no pleuritic component. No lower extremity edema or calf pain. PFSH PFS Medical History (Updated 09/10/22 @ 12:00 by [place]) AC joint arthropathy Acute bronchitis Anemia Arthritis Asthma Back pain Calcific tendinitis of right shoulder Contusion of right shoulder COVID-19 Diarrhea Difficulty balancing Esophageal tissue web Fatigue Fibromyalgia Frequent headaches GERD (gastroesophageal reflux disease) Hay fever History of esophageal dilatation History of rheumatoid arthritis Hypothyroidism Influenza A Knee pain Neck pain Raynaud phenomenon Rheumatoid arthritis Rheumatoid arthritis flare Treadmill stress test negative for angina pectoris Home Medications thyroid (pork) 60 mg tablet ([place] Thyroid) 60 mg PO DAILY 08/15/19 [History Last Taken Unknown] folic acid 1 mg tablet 1 tab PO DAILY 11/22/19 [History Last Taken Unknown] famotidine 10 mg tablet (Pepcid AC) 10 mg PO DAILY #20 tabs 02/09/21 [Rx Last Taken Unknown] gabapentin 100 mg capsule 300 mg PO DAILY 02/09/21 [History Last Taken Unknown] omeprazole 20 mg capsule,delayed release 20 mg PO DAILY #30 CAPSULES 02/09/21 [Rx Last Taken Unknown] albuterol sulfate 90 mcg/actuation aerosol inhaler 2 puff inhalation Q6H PRN Wheezing 09/10/22 [History Last Taken Unknown] celecoxib 200 mg capsule 200 mg PO DAILY 09/10/22 [History Last Taken Unknown] methotrexate sodium 25 mg/mL injection solution mg 09/10/22 [History Last Taken Unknown] sarilumab 200 mg/1.14 mL subcutaneous pen injector (Kevzara) mg subcut 09/10/22 [History Last Taken Unknown] Allergy/AdvReac Type Severity Reaction Status Date / Time Iodinated Contrast Media Allergy Severe Shortness Verified 09/10/22 11:26 [CONTRASTS] of breath cephalexin monohydrate Allergy Shortness Verified 09/10/22 11:26 [From Keflex] of breath Surgical History History of knee surgery History of tubal ligation Social History Smoking Status: Never smoker alcohol intake: never ROS ROS ED ROS Narrative Past medical history: Reviewed Medications: Reviewed Social history: Noncontributory Review of systems: All systems negative except as indicated General: No fever Eyes: No visual changes ENT: No upper airway congestion, normal voice Neck: No neck pain Cardiovascular: No chest pain. Palpitations as in HPI Respiratory: Shortness of breath as in HPI. Gastrointestinal: No abdominal pain, nausea vomiting or diarrhea Genitourinary: No dysuria Musculoskeletal: Denies myalgias no difficulty with ambulation Skin: No rash Neurological: No memory loss, confusion or any focal weakness Psych: No recent behavioral changes Hematologic: No easy bleeding or easy bruising EXAM Physical Exam Narrative Exam Narrative: Physical exam General: Well nourished, Well developed, No Acute Distress Head: Normocephalic, Atraumatic Eyes: Conjunctiva not pale ENT: Somewhat dry mucous membranes Neck: Supple, Nontender, No lymphadenopathy Cardiovascular: Tachycardia, regular rhythm. Respiratory: No distress, CTA bilaterally Abdomen: Soft, Nontender, Nondistended Back: Nontender, Normal Inspection. Negative for: CVA tenderness Extremities: Nontender, No edema Skin: Normal color, No rash Neurological: Alert, Normal Strength, Normal Sensation Psychological: Normal affect Const Vital Signs: 09/10/22 11:22 09/10/22 12:05 09/10/22 12:05 Temperature 97.8 F Temperature Source Temporal Pulse Rate 131 H 85 Respiratory Rate 16 18 Respiratory Effort Normal Non-Labored Respiratory Depth Normal Respiratory Pattern Normal Blood Pressure 160/90 H 120/72 Blood Pressure Mean 113 88 Pulse Ox 97 99 Oxygen Delivery Method Room Air Room Air [facility] Lab Data Labs: Laboratory Results - last 24 hr 09/10/22 09/10/22 12:00 12:00 WBC 11.3 H RBC 4.53 Hgb 13.1 Hct 40.5 MCV 89.4 MCH 28.9 MCHC 32.3 RDW Std Deviation 51.5 H RDW Coeff of [place] 15.9 H Plt Count 405 MPV 9.3 Immature Gran % (Auto) 0.500 Neut % (Auto) 54.1 Lymph % (Auto) 37.7 [place] % (Auto) 6.8 Eos % (Auto) 0.5 Baso % (Auto) 0.4 Absolute Neuts (auto) 6.1 Absolute Lymphs (auto) 4.26 Nucleated RBC % 0 Sodium 137 Potassium 3.4 L Chloride 101 Carbon Dioxide 29.0 Anion Gap 7 BUN 13 Creatinine 0.57 Estim Creat Clear Calc 95.63 Est GFR (MDRD) Af Amer 139 Est GFR (MDRD) Non-Af 115 BUN/Creatinine Ratio 22.7 H Glucose 92 Calcium 9.5 Total Bilirubin 0.30 AST 17 ALT 33 Alkaline Phosphatase 106 Total Protein 8.1 Albumin 3.9 Globulin 4.2 Albumin/Globulin Ratio 0.9 Radiography Diagnostic Testing: Clinical Impression(s) from Imaging Studies Chest X-Ray 09/10/22 12:10 IMPRESSION: Hyperinflation. The lungs are clear. Electronically Signed: Emory Carranza MD at 12:30 EST , Discharge Plan Triage Chief Complaint: Shortness of Breath ED Provider: Sunday Lowe Dx/Rx/DC Orders Prescriptions: No Action thyroid (pork) [[place] Thyroid] 60 mg tablet 60 mg PO DAILY folic acid 1 mg tablet 1 tab PO DAILY Label Comments: TAKE 1 TABLET BY MOUTH EVERY DAY gabapentin 100 mg capsule 300 mg PO DAILY Label Comments: TAKE 3 CAPSULES BY MOUTH DAILY AT BEDTIME. omeprazole 20 mg capsule,delayed release(DR/EC) 20 mg PO DAILY Qty: 30 0RF famotidine [Pepcid AC] 10 mg tablet 10 mg PO DAILY Qty: 20 0RF celecoxib 200 mg capsule 200 mg PO DAILY Label Comments: TAKE 1 CAPSULE BY MOUTH ONCE DAILY methotrexate sodium 25 mg/mL solution Label Comments: INJECT 0.6 ML SUBCUTANEOUSLY ONE TIME A WEEK. Kevzara 200 mg/1.14 mL pen injector SUBCUT albuterol sulfate 90 mcg/actuation HFA aerosol inhaler 2 puff INHALATION Q6H PRN (Reason: Wheezing) Label Comments: INHALE 2 PUFFS INSTRUCTED EVERY 4 HOURS NEEDED FOR WHEEZING/SHORTNESS OF BREATH. Primary Care Provider: Caron Leung Referrals: Caron Leung MD [Primary Care Provider] -
[2022-09-10 13:10] LABS: D-Dimer Quantitative (DVT/PE) 2.72 FEU/ug/m (0.27-0.49)
--- NOTE | 2022-09-10 13:11 | CT_ITS ---
STUDY: CTA CHEST REASON FOR EXAM: Female, 57 years old. Chest palpitations. Increasing shortness of breath. Flu positive. Covid positive. RADIATION DOSAGE (If Supplied By Facility): CTDIvol = ( 6.31 ) mGy, DLP = ( 238.96 ) mGycm TECHNIQUE: The examination was performed with the intravenous administration of IV 75mL Isovue-370. Post-processing of the angiographic images was performed, with multiplanar reformation and 3D reconstruction. Individualized dose optimization techniques were used for this CT. COMPARISON: Comparison is made with prior chest radiograph done earlier in the day. FINDINGS: Normal enhancement of the main pulmonary artery and right and left pulmonary arteries. Normal enhancement of the bilateral peripheral pulmonary arteries. There is no demonstrated pulmonary embolism. Normal thoracic aorta and visualized great vessels. There is no demonstrated aortic dissection. Normal heart and pericardium. Normal mediastinum. Normal hilar regions. Normal visualized trachea and bronchi. The lungs are well expanded. There is thickening of the inferior aspect of the left major fissure with mild increased markings in the left lower lobe suggestive of scarring. Normal pleura. Normal chest wall structures. There are degenerative changes of thoracic spine. Normal visualized upper abdomen. CT/CTA Chest W/WO Contrast IMPRESSION: No acute abnormality is seen. Electronically Signed: Emory Carranza MD at 15:07 EST ,
[2022-09-10 13:12] VITALS: BP 105/61; PULSE 79; RESP 18; TEMP 36.6; O2SAT 98
[2022-09-10] MEDS: DiphenhydrAMINE 50 MG/ML Syringe 25 MG IV (13:25)
[2022-09-10] MEDS: MethylPREDNISolone 125 MG/2 ML Vial IV (13:25)
[2022-09-10] MEDS: Famotidine 200 MG/20 ML MDV 20 MG in 0.9% Normal Saline (Pres. free 8 ML 300 MG IV (13:35)
[2022-09-10 13:39] VITALS: BP 131/67; PULSE 84; RESP 16; TEMP 36.4; O2SAT 99
[2022-09-10] MEDS: Contrast Allergy Safety Check IV (13:54)
== END 2022-09-10 17:46 | disposition home or self-care (01) ==
PROVIDERS: Emergency Provider Emergency Medicine; PCP Internal Medicine; Visit Provider Emergency Medicine
DX: R06.02 Shortness of breath (principal); J45.909 Unspecified asthma, uncomplicated; E03.9 Hypothyroidism, unspecified; K21.9 Gastro-esophageal reflux disease without esophagitis; Z86.16 Personal history of COVID-19; Z79.899 Other long term (current) drug therapy
CPT/HCPCS: 71046; 71275; 80053; 85025; 85379; 93005; 96361; 96374; 96375; 99283; J7030; Q9967; A4216; J3490

== ENCOUNTER 2025-03-03 02:54 | Emergency (ER) | payer SELFPAY ==
[2025-03-03 02:57] VITALS: BP 128/56; PULSE 83; RESP 16; TEMP 36.7; O2SAT 99; BMI 25.2
--- NOTE | 2025-03-03 03:06 | CT_ITS ---
PROCEDURE: BRAIN/HEAD WITHOUT CONTRAST 03/03/2025 REASON FOR EXAM: DIZZINESS TECHNIQUE: Head CT without intravenous contrast. Coronal and Sagittal reconstruction series were provided. One or more dose reduction techniques were used (e.g., Automated exposure control, adjustment of the mA and/or kV according to patient size, use of iterative reconstruction technique. RADIATION DOSE SUMMARY: CTDlvol: 44.99 mGy DLP: 812 mGycm COMPARISON: None. FINDINGS: Normal size of the ventricles and extra-axial spaces for the patient's age. Normal white matter tracts of the supratentorial brain. Normal basal ganglia and thalami. Normal brainstem. Normal cerebellum. There is no demonstrated extra-axial, intraparenchymal, or intraventricular hemorrhage. There are no findings of an acute ischemic infarction. Normal calvarium. There is no demonstrated fracture. Normal soft tissue structures. Normal visualized paranasal sinuses. CT/Brain/Head without Contrast IMPRESSION: Normal unenhanced CT scan of the brain. Reading Location: [facility]
--- NOTE | 2025-03-03 03:06 | EKG12_ITS ---
Test Reason : DIZZY Blood Pressure : */* mmHG Vent. Rate : 76 BPM Atrial Rate : 76 BPM P-R Int : 184 ms QRS Dur : 80 ms QT Int : 378 ms P-R-T Axes : 63 19 45 degrees QTcB Int : 425 ms Normal sinus rhythm Normal ECG Confirmed by Prem Black ([id number]), features editor [place]AMING ([id number]) on 03/03/2025 10:19:43 AM Referred By: Confirmed By: Prem Black
--- NOTE | 2025-03-03 03:06 | EX.ED.DYSGE1 ---
HPI History of Present Illness Chief Complaint: Dizziness Narrative Narrative: 60-year-old female past medical history of rheumatoid arthritis presents with dizziness and vertiginous-like symptoms that she has had since around 1 AM, 2 hours ago. She relates history that she went to bed around 9 PM yesterday evening, was thirsty and got up at around 1:00 and started experiencing dizziness and vertiginous-like symptoms. She was slightly nauseated but has not vomited. Is not necessarily worse with standing. She denies any difficulty walking, no paresthesias, no chest pain, not necessarily worse with standing. She states she continues to have slight dizziness. Does not worsen when she moves her head [id number]. This is never really happened to her previously. She denies any headache. PFSH PFSH Medical History Influenza A COVID-19 Treadmill stress test negative for angina pectoris Frequent headaches Hypothyroidism Calcific tendinitis of right shoulder Fibromyalgia Rheumatoid arthritis flare AC joint arthropathy Contusion of right shoulder Acute bronchitis Difficulty balancing Rheumatoid arthritis Back pain Neck pain Asthma Knee pain Diarrhea Hay fever Fatigue Anemia Arthritis History of esophageal dilatation Esophageal tissue web Raynaud phenomenon GERD (gastroesophageal reflux disease) History of rheumatoid arthritis Home Medications ?Medication ?Instructions ?Recorded ?Last Taken ?Type thyroid (pork) 60 mg tablet 60 mg PO DAILY 08/15/19 Unknown History ([place] Thyroid) folic acid 1 mg tablet 1 tab PO DAILY 11/22/19 Unknown History albuterol sulfate 90 mcg/actuation 2 puff inhalation Q6H PRN Wheezing 09/10/22 Unknown History aerosol inhaler celecoxib 200 mg capsule 200 mg PO DAILY 09/10/22 Unknown History naproxen sodium 550 mg tablet 550 mg PO BID PRN PRN pain 03/03/25 Unknown History Allergy/AdvReac Type Severity Reaction Status Date / Time Iodinated Contrast Media Allergy Severe Shortness Verified 03/03/25 02:57 (CONTRASTS) of breath metronidazole (From Flagyl) Allergy Severe Swelling Verified 03/03/25 02:57 vancomycin Allergy Mild Itching Verified 03/03/25 02:57 cephalexin monohydrate (From Allergy Shortness Verified 03/03/25 02:57 Keflex) of breath Surgical History History of tubal ligation History of knee surgery Social History Smoking Status: Never smoker alcohol intake: never ROS ROS ED ROS Narrative Review of systems positive for increased thirst, positive vertiginous type symptoms/dizziness. No headache. Positive slight nausea but no vomiting. Not worse with standing or moving head. Able to ambulate. EXAM Physical Exam Narrative Exam Narrative: Afebrile. Vital signs noted. Nontoxic-appearing. Cardiovascular examination reveals a regular rate and rhythm. Lungs are clear to auscultation bilaterally. Abdomen is soft and nontender with normal active bowel sounds. Neurological examination is nonfocal, nonlateralizing. Normal [id number]. PERRL, EOMI. No nystagmus. No worsening of symptoms when moving head [id number], nor with lateral gaze. Patellar DTRs equal and symmetric. Const Vital Signs: 03/03/25 02:57 Temperature 98.0 F Temperature Source Oral Pulse Rate 83 Respiratory Rate 16 Blood Pressure 128/56 H Blood Pressure Mean 80 Pulse Ox 99 Oxygen Delivery Method Room Air MDM MDM MDM Narrative Medical decision making narrative: Differential diagnosis includes benign positional vertigo versus dehydration versus near syncope versus other electrolyte imbalance. I reviewed her prior records and she has not had an ED visit for approximately 3 years. I doubt TIA or stroke because a history and physical does not support this. I do not feel that stroke team needs to be initiated as her symptoms seem more to be related to peripheral vertigo. I reviewed her laboratory work and she has normal white count of 10.1 with hemoglobin 11.2, hematocrit 34.4, platelet count normal at 375. Electrolyte panel is significant for BUN of 20 and creatinine 0.66 which may be very mild dehydration, LFTs show alk phos slightly elevated at 134 which I think is nonspecific. CT of the brain shows no acute process etiology report reviewed.. EKG obtained and interpreted by myself independently as normal sinus rhythm at 76 bpm without ectopy or acute ST changes. No STEMI. Upon repeat examination after meclizine, she states she feels improved. She feels well enough to go home. I will write her prescription for meclizine and once again I do feel that she does not require observation or admission. Also, I offered to have meds to bed performed, but she states that she just took the medication and she prefers that it be called into her local pharmacy. Return instructions to the emergency department were reviewed. She is motivated for discharge. Disposition is discharged home in stable condition. History & Record Review Discussion w/independent historian: Patient Additional record(s) reviewed:: Prior labs Lab Data Attestation: I reviewed the patient's lab results. Labs: Laboratory Results - last 24 hr 03/03/25 03:01 WBC 10.1 RBC 3.94 L Hgb 11.2 L Hct 34.4 L MCV 87.3 MCH 28.4 MCHC 32.6 RDW Std Deviation 48.5 H RDW Coeff of [place] 15.1 H Plt Count 375 MPV 9.0 Immature Gran % (Auto) 0.200 Neut % (Auto) 52.6 Lymph % (Auto) 29.4 [place] % (Auto) 9.1 Eos % (Auto) 8.2 H Baso % (Auto) 0.5 Absolute Neuts (auto) 5.3 Absolute Lymphs (auto) 2.97 Nucleated RBC % 0 Sodium 137 Potassium 3.7 Chloride 100 Carbon Dioxide 24.6 Anion Gap 12 BUN 20 H Creatinine 0.66 L Estim Creat Clear Calc 86.06 Est GFR (MDRD) Non-Af 99 BUN/Creatinine Ratio 29.8 H Glucose 113 H Calcium 9.5 Total Bilirubin 0.23 AST 26 ALT 14 Alkaline Phosphatase 134 H Total Protein 7.9 Albumin 4.1 Globulin 3.8 Albumin/Globulin Ratio 1.1 Radiography Diagnostic Testing: Clinical Impression(s) from Imaging Studies Brain CT 03/03/25 03:06 IMPRESSION: Normal unenhanced CT scan of the brain. Reading [facility] [id number] Discharge Plan Triage Chief Complaint: Dizziness ED Provider: Herbert Clement Dx/Rx/DC Orders Prescriptions: No Action thyroid (pork) [[place] Thyroid] 60 mg tablet 60 mg PO DAILY folic acid 1 mg tablet 1 tab PO DAILY Patient Comments: TAKE 1 TABLET BY MOUTH EVERY DAY celecoxib 200 mg capsule 200 mg PO DAILY Patient Comments: TAKE 1 CAPSULE BY MOUTH ONCE DAILY albuterol sulfate 90 mcg/actuation HFA aerosol inhaler 2 puff INHALATION Q6H PRN (Reason: Wheezing) Patient Comments: INHALE 2 PUFFS INSTRUCTED EVERY 4 HOURS NEEDED FOR WHEEZING/SHORTNESS OF BREATH. naproxen sodium 550 mg tablet 550 mg PO BID PRN PRN (Reason: pain) Primary Care Provider: Caron Leung Referrals: Caron Leung MD [Primary Care Provider] - Print Language: Portuguese
[2025-03-03] MEDS: Meclizine HCl 25 MG Tablet PO (03:14)
--- OUTSIDE RECORDS SUMMARY | 2025-03-03 03:15 | XMS RPT_ITS | CCD ---
Author Organization [facility] Care Team Providers Care Child And Adolescent Psychologist Name Role Phone Anival Ambriz MD Unavailable Anival Ambriz MD Unavailable Ivon PT, Cris Unavailable Timbo Bright MD Primary Care Provider Wilson Peguero MD Primary Care Provider Anival Ambriz MD Unavailable Anival Ambriz MD Unavailable HalArlette BERNAL, Cris Unavailable Timbo Bright MD Primary Care Provider Anival Ambriz MD Unavailable HalArlette BERNAL, Cris Unavailable Anival Ambriz MD Unavailable [phone] Phoenix Zapien DO Unavailable [phone] Souleymane Celis PT Unavailable Anival Ambriz MD Unavailable Anival Ambriz MD Unavailable Ivon BERNAL, Cris Unavailable Timbo Bright MD Primary Care Provider Anival Ambriz MD Unavailable Phoenix Zapien DO Unavailable Mulugetafener Souleymane BERNAL Unavailable MINO HARRIS Referring Unavailable KAILA TIMBO Renard Primary Care Unavailable Dr. Fran Peguero Primary Care Provider [phone] Dr. Fran Peguero Referring Provider FUNMILAYO Marcum Attending Provider Mino Harris MD Unavailable Anival Ambriz MD Unavailable Néstor Wilson MD Unavailable Ivon PT, Cris Unavailable ANIVAL AMBRIZ Admitting Unavailable ANIVAL AMBRIZ Attending Unavailable KAILA TIMBO Renard Primary Care Unavailable ROYAL BROWN Consulting Unavailable ANIVAL AMBRIZ Admitting Unavailable ANIVAL AMBRIZ Attending Unavailable EDIS BRIGHTA Renard Primary Care Unavailable RADHA FAROOQ Consulting Unavailabl e Ivon PT, Cris Unavailable Timbo Bright MD Primary Care Provider KAILA MONTERROSO, DR IZQUIERDO Primary Care Physician GHAZALA HOOVER Attending Unavailable DR TIMBO BRIGHT MD Primary Care Unavailable Ivon PT, Cris Unavailable Ivon PT, Cris Unavailable Anival Ambriz MD Unavailable Phoenix Zapien DO Unavailable Vimal PT, Souleymane Unavailable Wilson Peguero MD Primary Care Provider Wolfgang DOWNS, Herman Hopkins Attending Unavailable Edis Brighta Renard Referring Unavailable Kaila Timbo Renard Primary Care Unavailable Ab TRASH COLLECTOR.DIE CUTTING MACHINE OPERATOR, Ev Unavailable Christo TRASH COLLECTOR.LINOTYPE MACHINIST APPRENTICE, Goldie Unavailable Christo TRASH COLLECTOR.LINOTYPE MACHINIST APPRENTICE, Goldie Unavailable KAILA TIMBO Renard Primary Care Unavailable MINO HARRIS Referring Unavailable MINO HARRIS Attending Unavailable DARIAAMPAS, TIMBO D Primary Care Unavailable HUSNI, MINO Referring Unavailable TALAMPAS, TIMBO D Primary Care Unavailable TALAMPAS, TIMBO D Primary Care Unavailable HUSNI, MINO Referring Unavailable TALAMPAS, TIMBO D Primary Care Unavailable BERGER, EV Referring Unavailable TALAMPAS, TIMBO D Primary Care Unavailable BERGER, EV Attending Unavailable HUSNI, MINO Attending Unavailable TALAMPAS, TIMBO D Primary Care Unavailable SELF Referring Unavailable TALAMPAS, TIMBO D Primary Care Unavailable HUSNI, MINO Referring Unavailable TALAMPAS, TIMBO D Primary Care Unavailable TALAMPAS, TIMBO D Referring Unavailable Allergies Allergy Classification Reported Allergen(s) Allergy Type Date of Onset Reaction(s) Facility (20 sources) Cephalexin; Translations: [CEPHALEXIN] Drug Allergy 05-29-20 05 Anaphylaxis, Other: See Comments, Congestion of throat (finding) [facility] (20 sources) Erythromycin; Translations: [ERYTHROMYCIN] Drug Allergy 05-29-20 05 Vomiting [facility] (20 sources) RABEprazole; Translations: [RABEPRAZOLE SODIUM] Drug Allergy 07-23-20 07 Other: See Comments [facility] (20 sources) Sucralfate; Translations: [SUCRALFATE] Drug Allergy 11-10-19 13 Vomiting [facility] Work Phone: (20 sources) Sulfamethoxazole / Trimethoprim; Translations: [SULFAMETHOXAZOLE-T RIMETHOPRIM] Drug Allergy 06-12-20 05 Swelling, Vomiting [facility] (20 sources) Vancomycin; Translations: [VANCOMYCIN] Drug Allergy 07-02-20 21 Itching [facility] (20 sources) Propoxyphene N-Acetaminophen; Translations: [PROPOXYPHENE N-ACETAMINOPHEN] Drug Intolerance 05-29-20 05 Other: See Comments [facility] (20 sources) Iodinated Contrast Media; Translations: [IODINATED CONTRAST MEDIA] Drug Allergy 06-25-20 18 Shortness of Breath [facility] Work Phone: (3 sources) Cephalexin; Translations: [cephalexin monohydrate] Drug Allergy 02-10-20 21 Shortness of breath [facility] (1 source) Triiodobenzoic Acids Allergy to substance 09-10-20 22 Shortness of breath [facility] Work Phone: (20 sources) Wheat gluten extract; Translations: [GLUTEN] Drug Allergy 11-18-19 23 Intolerance [facility] (1 source) Clarithromycin; Translations: [clarithromycin] Drug Allergy Nausea and vomiting [facility] (1 source) Wheat preparation Drug Allergy Swollen abdomen (finding), Joint pain (finding) [facility] (13 sources) Ashwagandha; Translations: [ASHWAGANDHA] Drug Allergy 05-28-20 Swelling [facility] (1 source) metroNIDAZOLE Drug Allergy 09-19-20 [facility] (1 source) Vancomycin Drug Allergy 09-19-20 [facility] (1 source) Iodinated Contrast Media Drug allergy (disorder) 09-19-20 [facility] Medications Current Medications Medication Drug Class(es) Dates Sig (Normalized) Sig (Original) [id number] 200 actuat albuterol 0.09 mg/actuat metered dose inhaler (20 sources) beta2-Adrenergic Agonist Start: 09-10-2022 take 1 puff(s) by inhalation every six hours Albuterol Sulfate Active 2 PUFF INHALATION EVERY 6 HOURS September 10, 2022 12:00am Start: 09-06-2022 End: 12-06-2024 take 2 puff(s) by inhalation every four hours as needed for wheezing albuterol HFA (PROVENTIL HFA, VENTOLIN HFA) 90 mcg/actuation inhaler Indications: Acute non-recurrent sinusitis, unspecified location Inhale 2 Puffs as instructed every 4 hours as needed for wheezing/shortness of breath. 1 Each 11/06/2024 Active Comment on above: Inhale 2 Puffs as in structed every 4 hours as needed for wheezing/shortness of breath. amoxicillin 875 mg / clavulanate 125 mg oral tablet (5 sources) Penicillin-class Antibacterial Start: 11-06-19 End: 11-16-19 take 1 tablet by mouth twice daily amoxicillin-clavul anate potassium (AUGMENTIN) 875-125 mg per tablet Indications: Acute non-recurrent sinusitis, unspecified location Take 1 tablet by mouth two times a day for 10 days. 20 tablet 11/06/2024 11/16/2024 Active Start: 02-02-2023 End: 03-26-2023 take 1 tablet by mouth once at bedtime amoxicillin-clavulanic acid (AUGMENTIN) 875-125 mg per tablet TAKE 1 TABLET BY MOUTH IN THE MORNING AND AT BEDTIME FOR 10 DAYS 02/02/2023 03/26/2023 Discontinued Start: 08-15-2019 End: 08-25-2019 take 1 tablet by mouth twice daily Amoxicillin-Pot Clavulanate Discontinued 1 TABLET PO TWICE A DAY 11 07August 15, 2019 12:00am August 25, 2019 12:07am Comment on above: TAKE 1 TABLET BY KINA TH IN THE MORNING AND AT BEDTIME FOR 10 DAYS benzonatate 100 mg oral capsule (3 sources) Non-narcotic Antitussive Start: End: take 1 capsule by mouth three times daily as needed for cough benzonatate (TESSALON PERLE) 100 mg capsule Indications: Acute non-recurrent sinusitis, unspecified location Take 1 capsule by mouth three times a day as needed for cough for up to 7 days. 21 capsule 11/06/2024 11/13/2024 Active Start: 08-30-2018 End: 08-15-2019 take 1 capsule by mouth three times daily Benzonatate (Tessalon Perles) 100 mg capsule Discontinued 100 MG PO THREE TIMES A DAY August 30, 2018 12:00am August 15, 2019 10:31am celecoxib 100 mg oral capsule (20 sources) Nonsteroidal Anti-inflammatory Drug Start: 07-11-2023 End: 07-28-2024 take 1 capsule by mouth every twelve hours celecoxib (CELEBREX) 100 mg capsule Indications: Rheumatoid arthritis involving multiple sites with positive rheumatoid factor (HCC) TAKE 1 CAPSULE BY MOUTH EVERY 12 HOURS 180 capsule 1 07/28/2024 Active Start: 09-10-2022 take 200 mg by mouth once jeremiah y Celecoxib Active 200 MG PO DAILY September 10, 2022 12:00am Start: 08-28-2022 End: 07-11-2023 take 1 capsule by mouth twice daily celecoxib (CELEBREX) 100 mg capsule Indications: Rheumatoid arthritis involving multiple sites with positive rheumatoid factor (HCC) TAKE 1 CAPSULE BY MOUTH TWICE A DAY 60 capsule 2 01/30/2023 06/18/2023 Discontinued Start: 04-24-2022 End: 06-21-2022 celecoxib (CELEBREX) 200 mg capsule [The details of the medication are not available because there are pending changes by a home health clinician.] 90 capsule 1 04/24/2022 06/21/2022 Discontinued Comment on above: Take 1 capsule by mo uth once daily. [The details of the medication are not available because there are pending changes by a home health clinician.] Take 1 capsule by mo uth twice daily. TAKE 1 CAPSULE BY MO UTH TWICE A DAY Take 1 capsule by mo uth every 12 hours. take 1 capsule by mo uth every 12 hours cetirizine hydrochloride 10 mg oral capsule (20 sources) Histamine-1 Receptor Antagonist Start: 1 take 1 capsule by mouth once daily as needed Cetirizine (ZYRTEC) 10 mg cap Take 1 capsule by mouth once daily as needed (allergies). 07/04/2021 Active Comment on above: [The details of the medication are not available because there are pending changes by a home health clinician.] Take 1 capsule by mo uth once daily as needed (allergies). CPAP (20 sources) Start: 2 CPAP Pt with known NIKO confirmed by [facility]AT. AHI normalized with PAP. Has PAP device (Airsense 10 ([id number])). However, not receiving masks through current DME. Requests change. NIKO sx resolved with PAP. Please fit with Dreamwear under nose FFM (not pillows). Needs supplies. Lifetime supplies. Please provide us download in 4 weeks. 1 Each 999 03/04/2022 Suspended Start: 03-04-2022 CPAP Pt with k nown NIKO confirmed by HSAT. AHI normalized with PAP. Has PAP device (Airsense 10 ([id number])). However, not receiving masks through current DME. Requests change. NIKO sx resolved with PAP. Please fit with Dreamwear under nose FFM (not pillows). Needs supplies. Lifetime supplies. Please provide us download in 4 weeks. 1 Each 999 03/04/2022 Active Start: 09-06-2021 End: 06-21-2022 CPAP [The details of the med ication are not available because there are pending changes by a home health clinician.] 1 Each 0 09/06/2021 06/21/2022 Discontinued Start: 09-06-2021 CPAP [The deta ils of the medication are not available because there are pending changes by a home health clinician.] 1 Each 0 09/06/2021 Active Start: 09-06-2021 CPAP Initiate Auto PAP @ 5-20 cm of water with humidification. Mask (per patient preference) optional chin strap (if indicated) , filters, tubing, humidifier and lifetime supplies. 1 Each 0 09/06/2021 Suspended Start: 09-06-2021 CPAP Initiate Auto PAP @ 5-20 cm of water with humidification. Mask (per patient preference) optional chin strap (if indicated) , filters, tubing, humidifier and lifetime supplies. 1 Each 0 09/06/2021 Active Comment on above: Initiate Auto PAP @ 5-20 cm of water with humidification. Mask (per patient preference) optional chin strap (if indicated) , filters, tubing, humidifier and lifetime supplies. Pt with known NIKO co nfirmed by HSAT. AHI normalized with PAP. Has PAP device (Airsense 10 ([id number])). However, not receiving masks through current DME. Requests change. NIKO sx resolved with PAP. Please fit with Dreamwear under nose FFM (not pillows). Needs supplies. Lifetime supplies. Please provide us download in 4 weeks. [The details of the medication are not available because there are pending changes by a home health clinician.] cyclobenzaprine hydrochloride 10 mg oral tablet (11 sources) Muscle Relaxant Start: End: take 5 mg by mouth every twelve hours as needed cyclobenzaprine (FLEXERIL) 10 mg tablet Take 0.5 tablet by mouth twice daily as needed for muscle spasm 10 tablet 0 11/19/2022 11/29/2022 Active Comment on above: Take 0.5 tablet by m outh twice daily as needed for muscle spasm docusate sodium 100 mg oral capsule (20 sources) Start: 023 End: take 1 capsule by mouth twice daily docusate sodium (COLACE) 100 mg capsule Take 1 capsule by mouth twice daily for 15 days. 30 capsule 0 11/18/2022 12/04/2022 Active Start: 04-11-2022 End: 07-10-2022 take 1 capsule by mouth every twelve hours as needed docusate sodium (COLACE) 100 mg capsule [The details of the medication are not available because there are pending changes by a home health clinician.] 28 capsule 0 06/18/2022 07/02/2022 Start: 04-11-2022 End: 07-10-2022 docusate sodium (COLACE) 100 mg capsule [The details of the medication are not available because there are pending changes by a home health clinician.] 60 capsule 2 04/11/2022 06/21/2022 Discontinued Comment on above: Take 1 capsule by mo [facility] twice daily. Take 1 capsule by mo [facility] twice daily as needed for up to 14 days. [The details of the medication are not available because there are pending changes by a home health clinician.] Take 1 capsule by mo [facility] twice daily for 15 days. doxycycline monohydrate 100 mg oral capsule (20 sources) Tetracycline-class Drug Start: End: take 1 capsule by mouth twice daily doxycycline monohydrate (MONODOX) 100 mg capsule Take 1 capsule by mouth twice daily. 84 capsule 0 06/18/2022 07/30/2022 Active Start: 08-30-2018 End: 08-15-2019 take 100 mg by mouth twice daily Doxycycline Monohydrate Discontinued 100 MG PO TWICE A DAY August 30, 2018 12:00am August 15, 2019 10:31am Start: 07-19-2017 End: 04-04-2018 take 100 mg by mouth twice daily Doxycycline Monohydrate Discontinued 100 MG PO TWICE A DAY July 18, 2017 11:00pm April 04, 2018 11:41am Comment on above: Take 1 capsule by [facility] twice daily. famotidine 20 mg oral tablet (17 sources) Histamine-2 Receptor Antagonist Start: 11-19-2022 End: 12-03-2022 take 1 tablet by mouth once daily famotidine (PEPCID) 20 mg tablet Take 1 tablet by mouth once daily for 14 days. 14 tablet 0 11/19/2022 12/03/2022 Active Start: 02-09-2021 take 1 tablet by [facility] once daily before mealtime Famotidine (Pepcid Ac) 10 mg tablet Active 10 MG PO DAILY February 08, 2021 11:00pm Start: 11-05-2013 End: 08-15-2019 Pepcid 40 mg oral tablet Dos e : 40 mg = 1 tab(s), Oral, BID, 0 Refill(s) Start Date: 02/17/15 Status: Ordered Comment on above: Take 1 tablet by kina [facility] once daily for 14 days. fluticasone propionate 0.05 mg/actuat metered dose nasal spray (1 source) Corticosteroid Start: 5 take 1 dose nasal route once daily as needed Flonase 50 mcg/inh nasal spray Dose = 1 spray(s), Nostril, each, qDay, PRN Control symptoms, 0 Refill(s) Start Date: 02/17/15 Status: Ordered folic acid 1 mg oral tablet (20 sources) Start: End: 3 take 1 tablet by mouth once daily folic acid 1 mg tablet Indications: Rheumatoid arthritis involving multiple sites with positive rheumatoid factor (HCC) , High risk medication use take 1 tablet by mouth every day 90 tablet 3 07/31/2023 Active Start: 02-25-2022 End: 06-21-2022 folic acid 1 mg tablet [The details of the medication are not available because there are pending changes by a home health clinician.] 90 tablet 3 02/25/2022 06/21/2022 Discontinued Start: 03-12-2017 End: 08-15-2019 take 1 mg by mouth twice daily Folic Acid Discontinued 1 MG PO TWICE A DAY March 11, 2017 11:00pm August 15, 2019 10:30am Start: 02-17-2015 End: 02-25-2022 take 1 tablet by mouth once daily folic acid 1 mg tablet Indications: Rheumatoid arthritis involving multiple sites with positive rheumatoid factor (HCC) , High risk medication use Take 1 tablet by mouth once daily. 90 tablet 3 08/29/2022 Active Comment on above: Take 1 tablet by [facility]ina [facility] once daily. [The details of the medication are not available because there are pending changes by a home health clinician.] take 1 tablet by kina th every day Inhalational Spacing Device (2 sources) Start: 11-06-2024 End: 11-06-2024 Inhalational Spacing Device Indications: Acute non-recurrent sinusitis, unspecified location 1 Device one time only for 1 dose. 1 Each 11/06/2024 11/06/2024 Active Start: 09-06-2022 End: 09-06-2022 Inhalational Spacing Device Indications: Acute asthmatic bronchitis 1 Device one time only for 1 dose. 1 Each 0 09/06/2022 09/06/2022 Active Comment on above: 1 Device one time on ly for 1 dose. methotrexate 25 mg/ml injectable solution (20 sources) Folate Analog Metabolic Inhibitor Start: 06-10-20 inject 0.8 mL by subcutaneous injection every week methotrexate sodium 25 mg/mL soln Indications: Rheumatoid arthritis involving multiple sites with positive rheumatoid factor (HCC) Inject 0.8 mL subcutaneously one time a week. 12 mL 2 06/10/2024 Active Start: 09-10-2022 Methotrexate S odium Active MG September 10, 2022 12:00am Start: 08-29-2022 End: 06-10-2024 inject 0.6 mL by subcutaneous injection every week methotrexate sodium 25 mg/mL soln Indications: Rheumatoid arthritis involving multiple sites with positive rheumatoid factor (HCC) Inject 0.6 mL subcutaneously one time a week. 12 mL 1 08/20/2023 Active Start: 06-19-2022 End: 07-01-2022 methotrexate sodium 25 mg/mL soln [The details of the medication are not available because there are pending changes by a home health clinician.] 12 mL 1 06/19/2022 07/01/2022 Discontinued (Course of therapy completed) Start: 03-05-2022 End: 06-19-2022 inject 0.6 mL by subcutaneous injection every week methotrexate sodium 25 mg/mL soln INJECT 0.6 ML SUBCUTANEOUSLY ONE TIME A WEEK. 4 mL 3 03/29/2022 06/19/2022 Discontinued Start: 02-09-2021 take 12.5 mg by mouth once mariam ly Methotrexate Sodium Active 12.5 MG PO DAILY February 09, 2021 12:00am Start: 01-04-2021 End: 03-05-2022 take 5 tablets by mouth every week methotrexate 2.5 mg tablet TAKE 5 TABLETS BY MOUTH ONCE EACH WEEK. 60 tablet 2 02/25/2022 03/05/2022 Discontinued Comment on above: TAKE 5 TABLETS BY MO UTH ONCE EACH WEEK. Inject 0.6 mL subcut aneously one time a week. [The details of the medication are not available because there are pending changes by a home health clinician.] metroNIDAZOLE 500 mg oral tablet (2 sources) Nitroimidazole Antimicrobial Start: 09-03-20 End: 09-17-20 take 1 tablet by mouth four times daily metroNIDAZOLE (FLAGYL) 500 mg tablet Indications: Helicobacter pylori infection Take 1 tablet by mouth four times daily for 14 days. 56 tablet 0 09/03/2023 09/17/2023 Active Comment on above: Take 1 tablet by kina [facility] four times daily for 14 days. MULTIVITAMIN-FOLIC ACID-BIOTIN ORAL (12 sources) MULTIVITAMIN-FOL IC ACID-BIOTIN ORAL Take by mouth. Active predniSONE 5 mg oral tablet (20 sources) Start: 01-01-20 End: 01-16-20 take 3 tablets by mouth once daily, then take 2 tablets by mouth once daily, then take 1 tablet by mouth once daily predniSONE (DELTASONE) 5 mg tablet Take 3 tablets by mouth once daily for 5 days, THEN 2 tablets once daily for 5 days, THEN 1 tablet once daily for 5 days. 30 tablet 1 12/31/2024 01/15/2025 Active Start: 06-10-2024 End: 06-25-2024 take 3 tablets by mouth once daily, then take 2 tablets by mouth once daily, then take 1 tablet by mouth once daily predniSONE (DELTASONE) 5 mg tablet Take 3 tablets by mouth once daily for 5 days, THEN 2 tablets once daily for 5 days, THEN 1 tablet once daily for 5 days. 30 tablet 1 06/10/2024 06/25/2024 Active Start: 03-01-2024 End: 03-26-2024 take 3 tablets by mouth once daily, then take 2 tablets by mouth once daily, then take 1 tablet by mouth once daily, then take 1 tablet by mouth every other day predniSONE (DELTASONE) 5 mg tablet Take 3 tablets by mouth once daily for 5 days, THEN 2 tablets once daily for 5 days, THEN 1 tablet once daily for 5 days, THEN 1 tablet every other day for 10 days. 35 tablet 1 03/01/2024 03/26/2024 Active Start: 12-17-2023 End: 01-02-2024 take 4 tablets by mouth once daily, then take 3 tablets by mouth once daily, then take 2 tablets by mouth once daily, then take 1 tablet by mouth once daily predniSONE (DELTASONE) 5 mg tablet Take 4 tablets by mouth once daily for 4 days, THEN 3 tablets once daily for 4 days, THEN 2 tablets once daily for 4 days, THEN 1 tablet once daily for 4 days. 40 tablet 1 12/17/2023 01/02/2024 Active Start: 03-26-2023 End: 04-14-2023 take 3 tablets by mouth once daily, then take 2 tablets by mouth once daily, then take 1 tablet by mouth once daily, then take 0.5 tablet by mouth once daily predniSONE (DELTASONE) 10 mg tablet Take 3 tablets by mouth once daily for 4 days, THEN 2 tablets once daily for 4 days, THEN 1 tablet once daily for 4 days, THEN 0.5 tablets once daily for 7 days. 28 tablet 1 03/26/2023 04/14/2023 Active Start: 04-19-2022 End: 05-31-2022 take 1 tablet by mouth once daily predniSONE (DELTASONE) 10 mg tablet Indications: Rheumatoid arthritis of multiple sites without organ or system involvement with positive rheumatoid factor (HCC) Take 1 tablet by mouth once daily. Take for flare, taper down as feelling improved 14 tablet 1 04/19/2022 05/31/2022 Discontinued Start: 10-19-2019 End: 05-31-2022 take 1 tablet by mouth once daily predniSONE (DELTASONE) 5 mg tablet TAKE 1 TABLET BY MOUTH EVERY DAY 90 tablet 2 10/19/2019 05/31/2022 Discontinued Comment on above: TAKE 1 TABLET BY KINA [facility] EVERY DAY Take 1 tablet by [facility]ina [facility] once daily. Take for flare, taper down as feelling improved Take 3 tablets by mo uth once daily for 4 days, THEN 2 tablets once daily for 4 days, THEN 1 tablet once daily for 4 days, THEN 0.5 tablets once daily for 7 days. Take 4 tablets by mo uth once daily for 4 days, THEN 3 tablets once daily for 4 days, THEN 2 tablets once daily for 4 days, THEN 1 tablet once daily for 4 days. tetracycline hydrochloride 500 mg oral capsule (2 sources) Tetracycline-class Antimicrobial Start: 09-03-20 End: 09-17-20 take 1 capsule by mouth four times daily tetracycline (SUMYCIN) 500 mg cap Indications: Helicobacter pylori infection Take 1 capsule by mouth four times daily for 14 days. 56 capsule 0 09/03/2023 09/17/2023 Active Comment on above: Take 1 capsule by [facility] four times daily for 14 days. thyroid (detention) 60 mg oral tablet (20 sources) Start: 11-05-19 14 End: 04-29-20 take 1 tablet by mouth once daily thyroid, pork, (ARMOUR THYROID) 60 mg tablet Indications: Routine medical exam , Acquired hypothyroidism Take 1 tablet by mouth once daily. 90 tablet 3 04/29/2024 Active Comment on above: Take 1 tablet by [facility] once daily. Completed/Discontinued Medications Medication Drug Class(es) Dates Sig (Normalized) Sig (Original) acetaminophen 500 mg oral tablet (20 sources) Start: 11-18-2022 End: 12-04-2022 take 2 tablets by mouth every eight hours as needed acetaminophen (TYLENOL EXTRA STRENGTH) 500 mg tablet Take 2 tablets by mouth every 8 hours as needed for pain for up to 15 days. 90 tablet 0 11/18/2022 11/20/2022 Discontinued Start: 06-18-2022 End: 07-02-2022 take 2 tablets by mouth every eight hours as needed acetaminophen (TYLENOL EXTRA STRENGTH) 500 mg tablet Take 2 tablets by mouth every 8 hours as needed for pain for up to 14 days. 84 tablet 0 06/18/2022 07/02/2022 Start: 07-06-2021 End: 06-21-2022 take 2 tablets by mouth every six hours as needed acetaminophen (TYLENOL EXTRA STRENGTH) 500 mg tablet [The details of the medication are not available because there are pending changes by a home health clinician.] 60 tablet 0 07/06/2021 06/21/2022 Discontinued Start: 07-06-2021 take 2 tablets by [facility] every six hours as needed acetaminophen (TYLENOL EXTRA STRENGTH) 500 mg tablet Take 2 tablets by mouth every 6 hours as needed for pain for up to 30 doses. 60 tablet 0 07/06/2021 Active Start: 12-20-2020 take 2 tablets by mo [facility] twice daily Acetaminophen (Tylenol) 325 MG tablet Active 650 MG PO TWICE A DAY December 20, 2020 12:00am Start: 03-12-2017 End: 08-15-2019 Acetaminophen Discontinued 6 50 MG PO NEEDED March 11, 2017 11:00pm August 15, 2019 10:31am End: 03-01-2023 acetaminophen (TYLENOL ORAL) Take by mouth as needed. 0 11/20/2022 Discontinued acetaminophen (T YLENOL ORAL) Take by mouth as needed. 0 Suspended acetaminophen (T YLENOL ORAL) Take by mouth as needed. 0 Active Comment on above: Take 2 tablets by mo uth every 6 hours as needed for pain for up to 30 doses. Take 2 tablets by mo uth every 8 hours as needed for pain for up to 14 days. [The details of the medication are not available because there are pending changes by a home health clinician.] Take by mouth as nee ded. Take 2 tablets by mo uth every 8 hours as needed for pain for up to 15 days. acetaminophen 325 mg / HYDROcodone bitartrate 5 mg oral tablet (20 sources) Opioid Agonist Start: End: take 1-2 tablets by mouth every six hours as needed for pain HYDROcodone-acetamin ophen (NORCO) 5-325 mg per tablet Indications: Status post knee replacement, unspecified laterality Take 1-2 tablets by mouth every 6 hours as needed for pain. 56 tablet 12/09/2022 12/31/2022 Discontinued Start: 11-20-2022 End: 12-06-2022 take 1-2 tablets by mouth every six hours as needed for pain HYDROcodone-acetaminophen (NORCO) 5-325 mg per tablet Indications: Status post knee replacement, unspecified laterality Take 1-2 tablets by mouth every 6 hours as needed for pain. 56 tablet 0 11/20/2022 12/06/2022 Discontinued Comment on above: Take 1-2 tablets by mouth every 6 hours as needed for pain. aspirin 81 mg delayed release oral tablet (20 sources) Platelet Aggregation Inhibitor, Nonsteroidal Anti-inflammatory Drug Start: 11-18-2022 End: 09-03-2023 take 1 tablet by mouth twice daily aspirin, enteric coated (ECOTRIN LOW STRENGTH) 81 mg EC tablet Take 1 tablet by mouth twice daily. 60 tablet 11/18/2022 09/03/2023 Discontinued (Discontinued by Patient) Start: 06-18-2022 End: 11-01-2022 take 1 tablet by mouth twice daily at mealtime aspirin, enteric coated (ECOTRIN LOW STRENGTH) 81 mg EC tablet Take 1 tablet by mouth twice daily with meals for 28 days. 56 tablet 0 06/18/2022 11/01/2022 Discontinued Comment on above: Take 1 tablet by kina twice daily with meals for 28 days. Take 1 tablet by kina twice daily. azithromycin 250 mg oral tablet (2 sources) Macrolide Antimicrobial Start: 08-17-20 End: 11-22-19 Azithromycin Discontinued 0 PO .COMPLEX 6 August 17, 2019 12:00am November 22, 2019 5:23pm take 500 mg today (day 1), then 250 mg for 4 days (days 2-5) PO bismuth subsalicylate 262 mg chewable tablet (3 sources) Bismuth Start: 09-03-20 End: 12-10-19 take 1 tablet by mouth four times daily bismuth subsalicylate (BISMUTH) 262 mg chewable tablet Indications: Helicobacter pylori infection Take 1 tablet by mouth four times daily for 14 days. Follow with 8 oz glass of water. 56 tablet 0 09/03/2023 12/10/2023 Discontinued (Course of therapy completed) Comment on above: Take 1 tablet by kina four times daily for 14 days. Follow with 8 oz glass of water. clindamycin 300 mg oral capsule (11 sources) Lincosamide Antibacterial Start: 03-16-20 End: 09-03-20 clindamycin (CLEOCIN) 300 mg capsule 03/16/2023 09/03/2023 Discontinued (Course of therapy completed) Start: 03-15-2023 End: 03-15-2023 take 2 capsules by mouth once clindamycin (CLEOCIN HCL ) 300 mg capsule Take 2 capsules by mouth one time only for 1 dose. 2 capsule 5 03/15/2023 03/15/2023 Active Comment on above: Take 2 capsules by out one time only for 1 dose. Fish,Saf,Flx,Brg Oils-O3,6,9#2 (2 sources) Start: 03-12-2017 End: 08-15-2019 Fish,Saf,Flx,Brg Oils-O3,6,9#2 Discontinued 2 EACH PO DAILY March 11, 2017 11:00pm August 15, 2019 10:31am Start: 03-12-2017 End: 08-15-2019 Fish,Saf,Flx,Brg Oils-O3,6,9 #2 Discontinued 2 EACH PO DAILY March 12, 2017 12:00am August 15, 2019 11:31am fluconazole 150 mg oral tablet (4 sources) Azole Antifungal Start: 09-01-2018 End: 11-22-2019 take 1 tablet by mouth once Fluconazole (Diflucan) 150 mg tablet Discontinued 150 MG PO ONCE 1 August 15, 2019 12:00am November 22, 2019 5:23pm gabapentin 100 mg oral capsule (20 sources) Anti-epileptic Agent Start: 02-09-2021 take 300 mg by mouth once daily Gabapentin Active 300 MG PO DAILY February 08, 2021 11:00pm Start: 01-01-2021 End: 03-08-2023 gabapentin (NEURONTIN) 100 m g capsule [The details of the medication are not available because there are pending changes by a home health clinician.] 270 capsule 3 03/08/2022 11/01/2022 Discontinued Start: 01-30-2020 End: 02-29-2020 Gabapentin Discontinued 300 MG PO THREE TIMES A DAY 87 January 29, 2020 11:00pm February 28, 2020 11:02pm Day 1: 1 cap po once Day 2: 1 cap po BID then, as above Comment on above: TAKE 3 CAPSULES BY M OUTH DAILY AT BEDTIME. [The details of the medication are not available because there are pending changes by a home health clinician.] 12 hr guaiFENesin 1200 mg extended release oral tablet (2 sources) Start: 9 End: 0 take 1 tablet by mouth twice daily, then take 1 tablet by mouth every twelve hours Guaifenesin (Mucinex) 1,200 mg tablet extended release 12hr Discontinued 1200 MG PO TWICE A DAY August 15, 2019 12:00am November 22, 2019 5:23pm hyoscyamine sulfate 0.125 mg sublingual tablet (20 sources) Start: 3 End: 3 take 1 tablet under the tongue every four hours as needed hyoscyamine sublingual (LEVSIN/SL) 0.125 mg Indications: Lower abdominal pain Dissolve 1 tablet under the tongue every 4 hours as needed (for abdominal pain). 30 tablet 2 11/06/2022 09/03/2023 Discontinued (Discontinued by Patient) Comment on above: Dissolve 1 tablet un rosemarie the tongue every 4 hours as needed (for abdominal pain). 10 ml lidocaine hydrochloride 10 mg/ml injection (2 sources) Antiarrhythmic, Amide Local Anesthetic Start: 3 End: 3 lidocaine (PF) 10 mg/mL (1 %) 5 mg injection (XYLOCAINE) Start: 12-24-2022 End: 12-24-2022 lidocaine 10 mg/mL (1 %) 5 m g injection (XYLOCAINE) meloxicam 15 mg oral tablet (16 sources) Nonsteroidal Anti-inflammatory Drug Start: 12-20-2020 End: 04-24-2022 meloxicam (MOBIC) 15 mg tablet Take by mouth. 0 12/20/2020 04/24/2022 Discontinued Start: 12-20-2020 take 1 tablet by kina th once daily Meloxicam Active 1 TABLET PO DAILY December 20, 2020 12:00am Comment on above: Take by mouth. methotrexate 25 mg/mL preservative-free injectable solution (1 source) Start: methotrexate 25 mg/mL preservative-free injectable solution Dose : 12.5 mg = 0.5 mL, Intrathecal, Friday, 0 Refill(s) Start Date: 02/17/15 Status: Ordered methylPREDNISolone 4 mg oral tablet (1 source) Corticosteroid Start: End: take 1 tablet by mouth once Methylprednisolone (Medrol (Jose)) 4 mg tablets,dose pack Discontinued 4 MG PO per package directions 12 03September 03, 2022 12:00am September 09, 2022 12:04am Multivitamin preparation (2 sources) Start: End: Multivitamin Discontinued 1 EACH PO DAILY March 11, 2017 11:00pm August 15, 2019 10:30am Start: 03-12-2017 End: 08-15-2019 Multivitamin Discontinued 1 EACH PO DAILY March 12, 2017 12:00am August 15, 2019 11:30am mupirocin 0.02 mg/mg topical ointment (16 sources) RNA Synthetase Inhibitor Antibacterial Start: 11-01-2022 End: 11-18-2022 mupirocin (BACTROBAN) 2 % ointment Apply 0.5 inch with cotton swab (Q-tip) to each nostril in the morning and evening for 5 days prior to and including day of surgery. 22 g 0 11/01/2022 11/18/2022 Start: 05-31-2022 End: 06-18-2022 mupirocin (BACTROBAN) 2 % oi ntment Indications: Pre-operative examination Apply 0.5 inch with cotton swab (Q-tip) to each nostril in the morning and evening for 5 days prior to and including day of surgery. 22 g 0 05/31/2022 06/18/2022 Comment on above: Apply 0.5 inch with cotton swab (Q-tip) to each nostril in the morning and evening for 5 days prior to and including day of surgery. omeprazole 40 mg delayed release oral capsule (20 sources) Proton Pump Inhibitor Start: End: take 1 capsule by mouth twice daily omeprazole (PRILOSEC) 40 mg capsule Indications: Helicobacter pylori infection Take 1 capsule by mouth two times a day for 14 days. On empty stomach at least 30 minutes before eating. 28 capsule 0 09/03/2023 12/10/2023 Discontinued (Course of therapy completed) Start: 02-26-2023 End: 12-10-2023 Omeprazole Magnesium (PRILOS EC OTC) 20 mg tablet Will take two pills once daily and then decrease after symptoms controlled. May take 3 to 6 months to adequately treat. 02/26/2023 12/10/2023 Discontinued (Discontinued by Patient) Start: 04-11-2022 End: 07-10-2022 omeprazole (PRILOSEC) 20 mg capsule [The details of the medication are not available because there are pending changes by a home health clinician.] 30 capsule 2 04/11/2022 06/21/2022 Discontinued Start: 02-09-2021 End: 02-26-2023 take 1 capsule by mouth once daily omeprazole (PRILOSEC) 20 mg capsule Take 1 capsule by mouth once daily. 90 capsule 1 11/05/2022 02/03/2023 Discontinued Comment on above: Take 1 capsule by mo ut once daily. [The details of the medication are not available because there are pending changes by a home health clinician.] Will take two pills once daily and then decrease after symptoms controlled. May take 3 to 6 months to adequately treat. Take 1 capsule by mo uth two times a day for 14 days. On empty stomach at least 30 minutes before eating. ondansetron 4 mg disintegrating oral tablet (20 sources) Serotonin-3 Receptor Antagonist Start: 11-18-19 End: 09-03-20 take 1 tablet by mouth every eight hours as needed ondansetron orally disintegrating (ZOFRAN ODT) 4 mg disintegrating tablet Take 1 tablet by mouth every 8 hours as needed for nausea/vomiting for up to 12 doses. 12 tablet 11/18/2022 09/03/2023 Discontinued (Duplicate Entry) Start: 11-06-2022 End: 12-10-2023 take 1 tablet by mouth once daily as needed for nausea ondansetron (ZOFRAN) 4 mg tablet Indications: Lower abdominal pain Take 1 tablet by mouth once daily as needed for nausea/vomiting (for nausea.). 30 tablet 1 11/06/2022 12/10/2023 Discontinued (Course of therapy completed) Start: 06-18-2022 End: 07-02-2022 take 1 tablet by mouth every six hours as needed ondansetron (ZOFRAN) 4 mg tablet Take 1 tablet by mouth every 6 hours as needed for nausea/vomiting (For Nausea) for up to 14 days. 30 tablet 0 06/18/2022 07/02/2022 Comment on above: Take 1 tablet by kina every 6 hours as needed for nausea/vomiting (For Nausea) for up to 14 days. Take 1 tablet by kina once daily as needed for nausea/vomiting (for nausea.). Take 1 tablet by kina every 8 hours as needed for nausea/vomiting for up to 12 doses. [employer] [facility] (20 sources) Start: 09-06-2022 End: 11-06-2024 [facility] [employer] [facility] USE 1 DEVICE ONLY ONCE FOR 1 DOSE 09/06/2022 11/06/2024 Discontinued (Course of therapy completed) Start: 09-06-2022 [facility] USE 1 DEVICE ONLY ONCE FOR 1 DOSE 09/06/2022 Active Start: 09-06-2022 [facility] USE 1 DEVICE ONLY ONCE FOR 1 DOSE 0 09/06/2022 Suspended Start: 09-06-2022 [facility] USE 1 DEVICE ONLY ONCE FOR 1 DOSE 0 09/06/2022 Active Comment on above: USE 1 DEVICE ONLY ON CE FOR 1 DOSE oxyCODONE hydrochloride 5 mg oral tablet (15 sources) Opioid Agonist Start: 3 End: 3 take 5-10 mg by mouth every four hours as needed oxyCODONE IR (ROXICODONE) 5 mg immediate release tablet Indications: Acute post-operative pain after major orthopaedic surgery. Take 1-2 tablets by mouth every 4 hours as needed for pain for up to 7 days. 50 tablet 0 11/18/2022 11/20/2022 Discontinued Start: 06-18-2022 End: 07-01-2022 take 1 tablet by mouth every six hours as needed oxyCODONE IR (ROXICODONE) 5 mg immediate release tablet Indications: pain Take 1-2 tablets by mouth every 6 hours as needed for up to 7 days. Use for severe pain only 42 tablet 0 06/24/2022 07/01/2022 Active Comment on above: Take 1-2 tablets by mouth every 6 hours as needed for up to 7 days. Use for severe pain only [The details of the medication are not available because there are pending changes by a home health clinician.] Take 1-2 tablets by mouth every 4 hours as needed for pain for up to 7 days. 1.14 ml sarilumab 175 mg/ml auto-injector (20 sources) Start: 11-04-2022 End: 09-03-2023 KEVZARA 200 mg/1.14 mL pnij 11/04/2022 09/03/2023 Discontinued (Discontinued by Patient) Start: 09-10-2022 Sarilumab (Timothy richar) 200 mg/1.14 mL pen injector Active MG SC September 10, 2022 12:00am Start: 07-11-2022 End: 11-01-2022 inject 200 mg by subcutaneous injection every other week sarilumab (KEVZARA) 200 mg/1.14 mL pnij Inject 200 mg subcutaneously every 2 weeks. 6 Each 1 07/11/2022 11/01/2022 Discontinued Comment on above: Inject 200 mg subcut aneously every 2 weeks. sennosides, detention 8.6 mg oral tablet (11 sources) Start: 2 End: 2 take 1 tablet by mouth every twelve hours as needed Senna 8.6 mg tab [The details of the medication are not available because there are pending changes by a home health clinician.] 28 tablet 0 06/18/2022 07/02/2022 Comment on above: Take 1 tablet by kina th twice daily as needed for up to 14 days. [The details of the medication are not available because there are pending changes by a home health clinician.] Syringe with Needle, Disp, (MONOJECT TB) (2 sources) Start: 3 End: 3 Syringe with Needle, Disp, (MONOJECT TB) 100 Syringes one time a week. 100 Each 0 03/26/2023 03/27/2023 Discontinued Start: 03-26-2023 Syringe with N eedle, Disp, (MONOJECT TB) 100 Syringes one time a week. 100 Each 0 03/26/2023 Active Comment on above: 100 Syringes one adria e a week. Problems Active Problems Problem Classification Problem Date Documented Da te Episodic/Chronic Abdominal pain (2 sources) Lower abdominal pain; Translations: [Lower abdominal pain, unspecified] Episodic Acute bronchitis (2 sources) Acute bronchitis; Translations: [Acute bronchitis, unspecified] Episodic Administrative/social admission (5 sources) Patient encounter status; Translations: [Other specified counseling] Episodic Asthma (20 sources) Exercise-induced asthma; Translations: [Exercise induced bronchospasm] Onset: 1 06-25-2021 Chronic Digestive congenital anomalies (20 sources) Esophageal web; 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] Onset: 1 09-06-2021 Chronic Disorders of teeth and jaw (1 source) Other specified disorders of teeth and supporting structures; Translations: [Other specified disorders of teeth and supporting structures] Onset: 4 Episodic Esophageal disorders (20 sources) Gastroesophageal reflux disease; Translations: [Gastro-esophageal reflux disease without esophagitis] Onset: 7 09-06-2021 Chronic Fluid and electrolyte disorders (1 source) Dehydration; Translations: [Dehydration] Episodic Gastrointestinal hemorrhage (2 sources) Hematochezia; Translations: [Melena] Episodic Headache; including migraine (20 sources) Refractory migraine; Translations: [Migraine, unspecified, intractable, without status migrainosus] Onset: 5 Resolved: 3 05-29-2005 Chronic Influenza (2 sources) Influenza due to Influenza A virus; Translations: [Influenza due to other identified influenza virus with other respiratory manifestations] Episodic Intestinal infection (2 sources) Infection caused by Helicobacter pylori; Translations: [Other specified bacterial intestinal infections] 09-03-2023 Episodic Neoplasms of unspecified nature or uncertain behavior (2 sources) Skin lesion; Translations: [Neoplasm of unspecified behavior of bone, soft tissue, and skin] Episodic Nutritional deficiencies (1 source) Vitamin D deficiency; Translations: [Vitamin D deficiency, unspecified] Chronic Osteoarthritis (20 sources) Disorder of acromioclavicular joint; Translations: [Primary osteoarthritis, unspecified shoulder] Onset: 1 09-06-2021 Chronic Other aftercare (5 sources) Taking high risk medication; Translations: [Other prison (current) drug therapy] Episodic Other aftercare (4 sources) 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; Translations: [Other rodent exterminator (current) drug therapy] Onset: 5 Episodic Other aftercare (1 source) Long-term current use of drug therapy; Translations: [Other prison (current) drug therapy] 10-22-2024 Episodic Other and unspecified benign neoplasm (1 source) History of polyp of colon; Translations: [Personal history of colonic polyps] 12-10-2023 Episodic Other bone disease and musculoskeletal deformities (1 source) Avascular necrosis of bone; Translations: [Idiopathic aseptic necrosis of unspecified bone] Chronic Other bone disease and musculoskeletal deformities (1 source) Somatic dysfunction of upper limb; Translations: [Disorder of bone, unspecified] Episodic Other circulatory disease (20 sources) Raynaud's phenomenon; Translations: [Raynaud's syndrome without gangrene] Onset: 1 09-06-2021 Chronic Other connective tissue disease (20 sources) History of total knee arthroplasty; Translations: [Presence of right artificial knee joint] Onset: 3 Chronic Other connective tissue disease (20 sources) History of total hip arthroplasty; Translations: [Presence of right artificial hip joint] Onset: 2 06-18-2022 Chronic Other connective tissue disease (1 source) History of repair of hip joint; Translations: [Presence of right artificial hip joint] Chronic Other connective tissue disease (1 source) Disorder of hand; Translations: [Synovitis and tenosynovitis, unspecified] 06-10-2024 Episodic Other gastrointestinal disorders (2 sources) History of stricture of esophagus; Translations: [Personal history of other diseases of the digestive system] Episodic Other gastrointestinal disorders (1 source) Burping; Translations: [Eructation] Episodic Other nervous system disorders (20 sources) Difficulty walking; Translations: [Difficulty in walking, not elsewhere classified] Onset: 0 04-10-2020 Chronic Other nervous system disorders (1 source) Other chronic pain; Translations: [Chronic pain of left knee] Onset: 5 Chronic Other nervous system disorders (1 source) Acute postoperative pain; Translations: [Other acute postprocedural pain] Episodic Other non-traumatic joint disorders (1 source) Morning stiffness - joint; Translations: [Stiffness of unspecified joint, not elsewhere classified] Episodic Other non-traumatic joint disorders (1 source) Joint swelling; Translations: [Effusion, unspecified joint] Episodic Other non-traumatic joint disorders (2 sources) Pain in left knee; Translations: [Chronic pain of left knee] Onset: 5 Episodic Other screening for suspected conditions (not mental disorders or infectious disease) (8 sources) Other specified abnormal findings of blood chemistry; Translations: [Other abnormal blood chemistry] Episodic Other skin disorders (1 source) Suspected malignant pigmented skin lesion; Translations: [Disorder of pigmentation, unspecified] Episodic Other upper respiratory disease (1 source) Chronic rhinitis; Translations: [Chronic rhinitis] Chronic Other upper respiratory infections (1 source) Acute sinusitis; Translations: [Acute sinusitis, unspecified] 11-06-2024 Episodic Residual codes; unclassified (20 sources) Obstructive sleep apnea syndrome; Translations: [Obstructive sleep apnea (adult) (pediatric)] Onset: 9 07-02-2021 Chronic Residual codes; unclassified (1 source) Diffuse pain; Translations: [Pain, unspecified] Episodic Residual codes; unclassified (1 source) Frequent night waking; Translations: [Insomnia, unspecified] Episodic Residual codes; unclassified (2 sources) Pain; Translations: [Pain, unspecified] Episodic Residual codes; unclassified (1 source) Postmenopausal state; Translations: [Asymptomatic menopausal state] Episodic Residual codes; unclassified (2 sources) Acute pain; Translations: [Pain, unspecified] 10-22-2024 Episodic Rheumatoid arthritis and related disease (20 sources) Rheumatoid arthritis of multiple joints; Translations: [Rheumatoid arthritis with rheumatoid factor of multiple sites without organ or systems involvement] Onset: 1 Resolved: 6 07-02-2021 Chronic Spondylosis; intervertebral disc disorders; other back problems (20 sources) Lumbar spondylosis; Translations: [Spondylosis without myelopathy or radiculopathy, lumbar region] Onset: 1 11-23-2020 Chronic Thyroid disorders (20 sources) Hypothyroidism; Translations: [Hypothyroidism, unspecified] Onset: 7 07-02-2021 Chronic Unclassified (1 source) Long-term use of immunosuppressant medication; Translations: [Long-term use of immunosuppressant medication] Onset: Viral infection (2 sources) Disease caused by 2019-nCoV; Translations: [COVID-19] Episodic Past or Other Problems Problem Classification Problem Date Documented Date Episodic/Chronic Allergic reactions (20 sources) Allergy to drug; Translations: [Allergy status to unspecified drugs, medicaments and biological substances status] Onset: 10-25-2016 10-25-2016 Episodic Cardiac dysrhythmias (20 sources) Palpitations; Translations: [Palpitations] Onset: 12-20-2020 09-06-2021 Episodic Chronic obstructive pulmonary disease and bronchiectasis (20 sources) Bronchitis; Translations: [Bronchitis, not specified as acute or chronic] Resolved: 10-27-2006 10-27-2006 Episodic Conditions associated with dizziness or vertigo (20 sources) Dizziness and giddiness; Translations: [Dizziness and giddiness] Resolved: 10-27-2006 10-27-2006 Episodic Deficiency and other anemia (20 sources) Anemia; Translations: [Anemia, unspecified] Onset: 01-04-2010 01-04-2010 Episodic Deficiency and other anemia (20 sources) Iron deficiency anemia; Translations: [Iron deficiency anemia, unspecified] Onset: 06-06-2022 Episodic Deficiency and other anemia (1 source) Anemia, unspecified; Translations: [Anemia, unspecified type] Onset: 01-04-2010 Episodic E Codes: Adverse effects of medical drugs (20 sources) Contrast media adverse reaction; Translations: [Adverse effect of diagnostic agents, initial encounter] Onset: 08-13-2022 Episodic Malaise and fatigue (3 sources) Fatigue; Translations: [Other fatigue] Onset: 10-23-2024 Episodic Mood disorders (20 sources) Mood swings; Translations: [Emotional lability] Onset: 01-01-2013 09-17-2021 Episodic Other aftercare (2 sources) Long-term current use of immunosuppressive drug; Translations: [Long-term use of immunosuppressant medication] Episodic Other aftercare (1 source) Other prison (current) drug therapy; Translations: [Encounter for long-term current use of medication] Onset: 10-23-2024 Episodic Other connective tissue disease (20 sources) Calcific tendinitis of right shoulder; Translations: [Calcific tendinitis of right shoulder] Onset: 09-06-2021 09-06-2021 Episodic Other connective tissue disease (20 sources) H/O: rheumatoid arthritis; Translations: [Personal history of other diseases of the musculoskeletal system and connective tissue] Onset: 09-06-2021 09-06-2021 Episodic Other connective tissue disease (20 sources) Fibromyalgia; Translations: [Fibromyalgia] Onset: 09-06-2021 09-06-2021 Episodic Other nervous system disorders (1 source) Other acute postprocedural pain; Translations: [Acute postoperative pain] Onset: 06-18-2022 Episodic Other non-traumatic joint disorders (20 sources) Pain in right knee; Translations: [Other acute pain] Onset: 04-10-2020 04-10-2020 Episodic Other non-traumatic joint disorders (20 sources) Bilateral stiffness of knee joints; Translations: [Stiffness of right knee, not elsewhere classified] Onset: 04-10-2020 04-10-2020 Episodic Other non-traumatic joint disorders (20 sources) Hip stiff; Translations: [Stiffness of unspecified hip, not elsewhere classified] Onset: 04-10-2020 04-10-2020 Episodic Other nutritional; endocrine; and metabolic disorders (20 sources) H/O: hypothyroidism; Translations: [Personal history of other endocrine, nutritional and metabolic disease] Onset: 12-16-2021 12-16-2021 Episodic Other skin disorders (20 sources) Eruption; Translations: [Rash and other nonspecific skin eruption] Onset: 10-25-2016 10-25-2016 Episodic Residual codes; unclassified (1 source) Pain, unspecified; Translations: [Acute pain] Onset: 10-23-2024 Episodic Spondylosis; intervertebral disc disorders; other back problems (20 sources) Lumbar radiculitis; Translations: [Radiculopathy, lumbar region] Onset: 11-23-2020 11-23-2020 Episodic Unclassified (1 source) Patient encounter status 01-04-2025 Results Test Name Value Interpretation Reference Range Facility [facility] 12-15-2024 [facility] Office Visit ([facility] ) AURY METZ ([id number]) 1965 F Date Time Provider Department 12/15/24 2:00 PM MINO HARRIS During your visit today, we recorded the following information about you: Temperature Pulse Blood pressure Weight 97.2 degrees 103/minute 126/68 66 kg Mino Harris MD 12/15/2024 3:08 PM Signed We discussed your left knee pain and swelling: - Your recent x-ray showed no obvious issues such as loosening or damage to the knee replacement. However, since your left knee continues to bother you, I recommend following up with your orthopedic surgeon. They are better equipped to evaluate and manage post-knee replacement concerns. - Please schedule your appointment with the orthopedic surgeon after you have tapered off prednisone to ensure they can assess your knee without the masking effects of the medication. - Continue tapering your prednisone as follows: stay on 5 mg for a few more days, then reduce to 2.5 mg for a few days before stopping. This gradual taper will help prevent a flare. We discussed your rheumatoid arthritis (RA) and recent flare: - Continue taking methotrexate as prescribed (0.8 mg). You mentioned a missed refill; please pick it up from your pharmacy. If you encounter any issues, contact our office. - You have been back on methotrexate for only 2 weeks. It typically takes 4-6 weeks to see full effects, so please allow more time for improvement. - We will order x-rays of your hands and feet to assess for any RA-related changes. These will help determine if additional treatment is needed. We discussed your recent illness and medication adjustments: - You were off methotrexate for several weeks due to an infected tooth and subsequent illness. This likely contributed to your recent RA flare. - Your blood work showed no significant abnormalities, and the findings were consistent with your recent illness rather than an active RA flare. We discussed chronic pain and fibromyalgia: - At this time, we will not pursue treatment for fibromyalgia or chronic pain, as your symptoms may still be related to your RA flare and recent medication interruptions. - If your pain persists after your RA is better controlled, we can revisit this and consider a referral to a chronic pain specialist to discuss options like low-dose naltrexone. Follow-up plan: - Complete the x-rays of your hands and feet as ordered. - Schedule an appointment with your orthopedic surgeon to evaluate your left knee. - We will follow up with a virtual visit in 3-4 months to reassess your progress. This may be with me or one of my nurse practitioners. - If you have any issues with your medications or symptoms worsen, please contact our office. Thank you for working through this plan with me. Mino Harris MD 12/16/2024 12:07 AM Signed Rheumatology Clinic FOLLOW UP Date of Service: 12/15/2024 Patient: Aury Metz Medical Record: [id number] Primary Care Physician: Timbo Bright MD Last Rheumatology visit: 06/10/2024 (with Mino Harris) History of Present Illness Aury Metz is a 59 year old White female who presents on 12/15/2024 for an in-person visit for evaluation of No chief complaint on file.. She is currently taking celecoxib, methotrexate sodium. RA seropos non erosive RF positive - 48 (01/11/2012) and CCP negative - 20 (05/01/2011). Her most recent KENY was positive (05/05/2013) S/p R TKR 2020 S/p R THR 2021 S/p L TKR 2022 Aury is RF positive - 48 (01/11/2012) and CCP negative - 20 (05/01/2011). Her most recent KENY was positive (05/05/2013). She does not have erosive disease. There are no rheumatoid nodules present. Aury has mild joint swelling. She reports morning stiffness . HISTORY OF PRESENT ILLNESS 59 year old with RF+, CCP negative (intermittent +CCP in the past) Nonerosive MTX 6 tabs weekly celebrex Past treatment: Plaquenil: LE numbness Methotrexate: Became ineffective after 7 years Arava: Rash Humira: SOB Enbrel: ?? Not sure why it was stopped. She thinks she only had one injection. Cymbalta: mind could not shut off. Xeljanz: Insurance would not cover, despite an appeal. Past treatment: Plaquenil: LE numbness Methotrexate: Became ineffective after 7 years Arava: Rash Humira: SOB Enbrel: ?? Not sure why it was stopped. She thinks she only had one injection. Xeljanz: Insurance would not cover, despite an appeal. S/p R TKR 2020 S/p R THR 2021 S/p L TKR 2022 Interval History Aury reports ongoing swelling and discomfort in her left knee, which has persisted since her knee replacement. She notes that the knee never felt right post-surgery and is concerned about the swelling and decreased functionality. She denies any recent trauma or falls affecting the left knee. She mentions a previous fall on the opposite side but does not belie (more content not included)... Normal [facility] No Panel Informationon 12-15 Radiology Study observation (narrative) [facility] XR FOOT SURVEY 1V AP BILon 0 12-15-2024 XR FOOT SURVEY 1V AP JIMENA * * *Final Report* * * DATE OF EXAM: Dec 15 2024 3:26PM AOX 5340 - XR FOOT SURVEY 1V AP JIMENA / PROCEDURE REASON: Rheumatoid arthritis involving multiple sites with positive rheumatoid factor (H * * * * Physician Interpretation * * * * Examination: Both feet History: Rheumatoid arthritis involving multiple sites with positive rheumatoid factor (HCC) Technique: XR FOOT SURVEY 1V AP JIMENA -- Comparison: No prior images are available for comparison at this time. FINDING/ RESULT: Mild hallux valgus deformity bilaterally, unchanged. Remainder of the bones, joint spaces and alignment are within normal limits. No erosion. IMPRESSION: No erosions. Data Collector: PSCB Transcribe Date/Time: Dec 15 2024 6:01P Dictated by : EUGENIA ROYAL MD This examination was interpreted and the report reviewed and electronically signed by: EUGENIA ROYAL MD on Dec 15 2024 6:02PM EST [id number] Normal [facility] XR Foot - bilateral APon IMPRESSION: No erosions. Data Collector: PSCB Transcribe Date/Time: Dec 15 2024 6:01P Dictated by : EUGENIA ROYAL MD This examination was interpreted and the report reviewed and electronically signed by: EUGENIA ROYAL MD on Dec 15 2024 6:02PM EST DIVISION OF RADIOLOGY * * *Final Report* * * DATE OF EXAM: Dec 15 2024 3:26PM AOX 5340 - XR FOOT SURVEY 1V AP JIMENA / PROCEDURE REASON: Rheumatoid arthritis involving multiple sites with positive rheumatoid factor (H * * * * Physician Interpretation * * * * Examination: Both feet History: Rheumatoid arthritis involving multiple sites with positive rheumatoid factor (HCC) Technique: XR FOOT SURVEY 1V AP JIMENA -- Comparison: No prior images are available for comparison at this time. FINDING/ RESULT: Mild hallux valgus deformity bilaterally, unchanged. Remainder of the bones, joint spaces and alignment are within normal limits. No erosion. DIVISION OF RADIOLOGY Provider, [facility] - 12/15/2024 * * *Final Report* * * DATE OF EXAM: Dec 15 2024 3:26PM AOX 5340 - XR FOOT SURVEY 1V AP JIMENA / PROCEDURE REASON: Rheumatoid arthritis involving multiple sites with positive rheumatoid factor (H * * * * Physician Interpretation * * * * Examination: Both feet History: Rheumatoid arthritis involving multiple sites with positive rheumatoid factor (HCC) Technique: XR FOOT SURVEY 1V AP JIMENA -- Comparison: No prior images are available for comparison at this time. FINDING/ RESULT: Mild hallux valgus deformity bilaterally, unchanged. Remainder of the bones, joint spaces and alignment are within normal limits. No erosion. IMPRESSION IMPRESSION: No erosions. Data Collector: PSCB Transcribe Date/Time: Dec 15 2024 6:01P Dictated by : EUGENIA ROYAL MD This examination was interpreted and the report reviewed and electronically signed by: EUGENIA ROYAL MD on Dec 15 2024 6:02PM EST [facility] XR HAND/WRIST SURVEY 1V PA B ILon 12-15-2024 XR HAND/WRIST SURVEY 1V PA JIMENA * * *Final Report* * * DATE OF EXAM: Dec 15 2024 3:26PM AOX 5349 - XR HAND/WRIST SURVEY 1V PA JIMENA / PROCEDURE REASON: Rheumatoid arthritis involving multiple sites with positive rheumatoid factor (H * * * * Physician Interpretation * * * * Examination: Both hands History: Rheumatoid arthritis involving multiple sites with positive rheumatoid factor (HCC) Technique: XR HAND/WRIST SURVEY 1V PA JIMENA -- Comparison: 02/19/2022 FINDING/ RESULT: There is moderate narrowing of the midcarpal and radiocarpal joints and both wrists, new from prior. Small cystlike lucency in the right lunate appears unchanged from prior. Small cystlike lucency in the left triquetrum appears new. Mild soft tissue swelling over both ulnar styloids. There is moderate narrowing of the right thumb CMC joint with small subchondral cysts, progressed from prior. Remainder of the joint spaces and alignment are maintained. Specifically MCP and PIP joints appear normal. Questionable periarticular osteopenia at the MCP and PIP joints. IMPRESSION: Progression of wrist arthritis bilaterally with new intercarpal and radiocarpal narrowing compatible with inflammatory arthritis. No definite erosions. Right thumb osteoarthritis. Data Collector: VIVIANA Transcribe Date/Time: Dec 15 2024 5:53P Dictated by : EUGENIA ROYAL MD This examination was interpreted and the report reviewed and electronically signed by: EUGENIA ROYAL MD on Dec 15 2024 6:01PM EST [id number] Normal [facility] XR Hand - bilateral PAon * * *Final Report* * * DATE OF EXAM: Dec 15 2024 3:26PM AOX 5349 - XR HAND/WRIST SURVEY 1V PA JIMENA / PROCEDURE REASON: Rheumatoid arthritis involving multiple sites with positive rheumatoid factor (H * * * * Physician Interpretation * * * * Examination: Both hands History: Rheumatoid arthritis involving multiple sites with positive rheumatoid factor (HCC) Technique: XR HAND/WRIST SURVEY 1V PA JIMENA -- Comparison: 02/19/2022 FINDING/ RESULT: There is moderate narrowing of the midcarpal and radiocarpal joints and both wrists, new from prior. Small cystlike lucency in the right lunate appears unchanged from prior. Small cystlike lucency in the left triquetrum appears new. Mild soft tissue swelling over both ulnar styloids. There is moderate narrowing of the right thumb CMC joint with small subchondral cysts, progressed from prior. Remainder of the joint spaces and alignment are maintained. Specifically MCP and PIP joints appear normal. Questionable periarticular osteopenia at the MCP and PIP joints. DIVISION OF RADIOLOGY [facility], [facility] * * *Final Report* * * DATE OF EXAM: Dec 15 2024 3:26PM AOX 5349 - XR HAND/WRIST SURVEY 1V PA JIMENA / PROCEDURE REASON: Rheumatoid arthritis involving multiple sites with positive rheumatoid factor (H * * * * Physician Interpretation * * * * Examination: Both hands History: Rheumatoid arthritis involving multiple sites with positive rheumatoid factor (HCC) Technique: XR HAND/WRIST SURVEY 1V PA JIMENA -- Comparison: 02/19/2022 FINDING/ RESULT: There is moderate narrowing of the midcarpal and radiocarpal joints and both wrists, new from prior. Small cystlike lucency in the right lunate appears unchanged from prior. Small cystlike lucency in the left triquetrum appears new. Mild soft tissue swelling over both ulnar styloids. There is moderate narrowing of the right thumb CMC joint with small subchondral cysts, progressed from prior. Remainder of the joint spaces and alignment are maintained. Specifically MCP and PIP joints appear normal. Questionable periarticular osteopenia at the MCP and PIP joints. IMPRESSION IMPRESSION: Progression of wrist arthritis bilaterally with new intercarpal and radiocarpal narrowing compatible with inflammatory arthritis. No definite erosions. Right thumb osteoarthritis. Data Collector: PSCB Transcribe Date/Time: Dec 15 2024 5:53P Dictated by : EUGENIA ROYAL MD This examination was interpreted and the report reviewed and electronically signed by: EUGENIA ROYAL MD on Dec 15 2024 6:01PM [facility] XR Hand - bilateral PAOrdere d By: [facility] Provider on 12-15-2024 [facility] CNOVon 11-06-2024 CNOV Office Visit (WSTR ) AURY METZ ([id number]) 1965 F Date Time Provider Department 11/06/24 2:00 PM [facility] During your visit today, we recorded the following information about you: Temperature Pulse Respiration Blood pressure 99.6 degrees 92/minute 16/minute 120/76 Weight 66.4 kg Reilly Culp PA-C 11/06/2024 2:24 PM Signed This note was created using [employer]. Subjective Aury Metz is a 59 year old female. Patient is a 59-year-old female who complains of worsening congestion, sinus pressure, throat irritation, headache and cough that she has been experiencing for the past 2 weeks. Patient reports no fever but has experienced chills and myalgia. Patient does not have a exercise-induced asthma but states that her albuterol MDI is and is requesting a refill of same. Review of Systems HENT: Positive for congestion, sinus pressure, sinus pain and sore throat. Respiratory: Positive for cough. All other systems reviewed and are negative. Objective BP 120/76 Pulse 92 Temp 37.6 ?C (99.6 ?F) Resp 16 Wt 66.4 kg (146 lb 6.2 oz) LMP 06/15/2015 (Exact Date) SpO2 96% BMI 24.74 kg/m? Physical Exam Vitals and nursing note reviewed. Constitutional: Appearance: Normal appearance. She is normal weight. HENT: Head: Normocephalic and atraumatic. Right Ear: Tympanic membrane, ear canal and external ear normal. Left Ear: Tympanic membrane, ear canal and external ear normal. Nose: Nose normal. Mouth/Throat: Mouth: Mucous membranes are moist. Pharynx: Oropharynx is clear. Eyes: Extraocular Movements: Extraocular movements intact. Conjunctiva/sclera: Conjunctivae normal. Pupils: Pupils are equal, round, and reactive to light. Cardiovascular: Rate and Rhythm: Normal rate and regular rhythm. Pulses: Normal pulses. Heart sounds: Normal heart sounds. Pulmonary: Effort: Pulmonary effort is normal. Breath sounds: Normal breath sounds. Musculoskeletal: Cervical back: Normal range of motion and neck supple. Skin: General: Skin is warm and dry. Capillary Refill: Capillary refill takes less than 2 seconds. Neurological: General: No focal deficit present. Mental Status: She is alert and oriented to person, place, and time. Psychiatric: Mood and Affect: Mood normal. Behavior: Behavior normal. Thought Content: Thought content normal. Judgment: Judgment normal. Assessment and Plan Physical exam findings as noted above. Patient does have a significant allergy to cephalexin, however the patient clearly states that she can take Augmentin and has not experienced complication with that medication in the past. Patient was provided with prescriptions for Augmentin 875-125 mg, Tessalon 100 mg and an albuterol MDI. Patient is on methotrexate, however she states that her clinical trial associate has directed that she stop methotrexate while on antibiotic therapy and reports that she will do the same at this time. Supportive care instructions were discussed and patient verbalizes good understanding of same. CLINICAL IMPRESSION: Acute Sinusitis; Medication Refill ASSESSMENT/PLAN: 1. Acute non-recurrent sinusitis, unspecified location - ICD9: 461.9, ICD10: J01.90 - AMOXICILLIN 875 MG-POTASSIUM CLAVULANATE 125 MG TABLET - ALBUTEROL SULFATE HFA 90 MCG/ACTUATION AEROSOL INHALER - INHALATIONAL SPACING DEVICE - BENZONATATE 100 MG CAPSULE Reilly Culp PA-C Allergies As of Date: 11/06/2024 Noted Allergy Reaction CEPHALEXIN 05/29/2005 10 - Anaphylaxis 14 - Other: See Comments Comments: Throat swelling. Has tolerated augmentin 850mg as op after this episode ACIPHEX (RABEPRAZOLE SODIUM) 07/23/2007 14 - Other: See Comments Comments: Chest pain TISHWAGANDHA 05/28/2024 7 - Swelling Comments: coffee with sharron, interacted with methotrexate, throat tightening BACTRIM (SULFAMETHOXAZOLE-TRIME TH*06/12/2005 11 - Vomiting CARAFATE (SUCRALFATE) 11/10/2012 11 - Vomiting DARVOCET-N 100 (PROPOXYPHENE N-AC*05/29/2005 14 - Other: See Comments Comments: dizzy severe pain in head ERYTHROMYCIN 05/29/2005 11 - Vomiting GLUTEN 11/18/2022 5 - Intolerance IODINATED CONTRAST MEDIA 06/25/2018 12 - Shortness of Breath VANCOMYCIN 07/02/2021 9 - Itching Comments: Scalp itchy Date Reviewed: 11/06/2024 Reviewed by: Samaria Prince MA - Fully Assessed Reason for Visit: Head Congestion [234] Cmt: chest congestion, cough x 9 days Primary Visit Diagnosis:Acute non-recurrent sinusitis, unspecified location [J01.90] Order(s):amoxicillin-cl avulanate potassium (AUGMENTIN) 875-125 mg per tabletTake 1 tablet by mouth two times a day for 10 days.Disp: 20 tabletRfl: 0 albuterol HFA (PROVENTIL HFA, VENTOLIN HFA) 90 mcg/actuation inhalerInhale 2 Puffs as instructed every 4 hours as needed for wheezing/shortness of breath.Disp: 1 EachRfl: 0 Inhalational Spacing Device1 Roma (more content not included)... Normal [facility] CBC W Auto Differential pane l (Bld)on 10-23-2024 Basophils (Bld) [#/Vol] 0.04 10*3/uL Normal <0.11 [facility] Comment on above: Order Comment: Speci men Type: BLOOD SPECIMENOrdering Facility: [facility] Address: [address] [place] [address] Performed By: #### 5 7021-8 ####[facility] LABCLIA [id number] [place] [address] [place] Basophils/100 WBC (Bld) 0.5 % Normal [facility] Comment on above: Order Comment: Speci men Type: BLOOD SPECIMENOrdering Facility: [facility] Address: [address] [place] [address] Performed By: #### 5 7021-8 ####[facility] LABCLIA [id number] [place] [address] [place] Differential cell count method Nom (Bld) Auto Normal [facility] Comment on above: Order Comment: Speci men Type: BLOOD SPECIMENOrdering Facility: [facility] Address: [address] [place] [address] Performed By: #### 5 7021-8 ####[facility] LABCLIA [id number] [place] [address] [place] Eosinophils (Bld) [#/Vol] 0.26 10*3/uL Normal <0.46 [facility] Comment on above: Order Comment: Speci men Type: BLOOD SPECIMENOrdering Facility: [facility] Address: [address] [place] [address] Performed By: #### 5 7021-8 ####[facility] LABCLIA [id number] [place] [address] [place] Eosinophils/100 WBC (Bld) 3.1 % Normal [facility] Comment on above: Order Comment: Speci men Type: BLOOD SPECIMENOrdering Facility: [facility] Address: [address] [place] [address] Performed By: #### 5 7021-8 ####[facility] LABCLIA [id number] [place] [address] [place] Erythrocyte distribution width (RBC) [Ratio] 14.0 % Normal 11.5-15.0 [facility] Comment on above: Order Comment: Speci men Type: BLOOD SPECIMENOrdering Facility: [facility] Address: [address] [place] [address] Performed By: #### 5 7021-8 ####[facility] LABCLIA [id number] [place] [address] [place] Hematocrit (Bld) [Volume fraction] 37.3 % Normal 36.0-46.0 [facility] Comment on above: Order Comment: Speci men Type: BLOOD SPECIMENOrdering Facility: [facility] Address: [address] [place] [address] Performed By: #### 5 7021-8 ####[facility] LABCLIA [id number] [place] [address] [place] Hemoglobin (Bld) [Mass/Vol] 11.9 g/dL Normal 11.5-15.5 [facility] Comment on above: Order Comment: Speci men Type: BLOOD SPECIMENOrdering Facility: [facility] Address: [address] [place] [address] Performed By: #### 5 7021-8 ####[facility] LABCLIA [id number] [place] [address] [place] Immature granulocytes (Bld) [#/Vol] 10*3/uL Normal <0.10 [facility] Comment on above: Order Comment: Speci men Type: BLOOD SPECIMENOrdering Facility: [facility] Address: [address] [place] [address] Performed By: #### 5 7021-8 ####[facility] LABCLIA [id number] [place] [address] [place] Immature granulocytes/100 WBC (Bld) 0.2 % Normal [facility] Comment on above: Order Comment: Speci men Type: BLOOD SPECIMENOrdering Facility: [facility] Address: [address] [place] [address] Performed By: #### 5 7021-8 ####[facility] LABIA [id number] [place] [address] [place] Lymphocytes (Bld) [#/Vol] 1.86 10*3/uL Normal 1.00-4.00 [facility] Comment on above: Order Comment: Speci men Type: BLOOD SPECIMENOrdering Facility: [facility] Address: [address] [place] [address] Performed By: #### 5 7021-8 ####[facility] LABCLIA [id number] [place] [address] [place] Lymphocytes/100 WBC (Bld) 22.5 % Normal [facility] Comment on above: Order Comment: Speci men Type: BLOOD SPECIMENOrdering Facility: [facility] Address: [address] [place] [address] Performed By: #### 5 7021-8 ####[facility] [id number] [place] [address] [place] MCH (RBC) [Entitic mass] 29.8 pg Normal 26.0-34.0 [facility] Comment on above: Order Comment: Speci men Type: BLOOD SPECIMENOrdering Facility: [facility] Address: [address] [place] [address] Performed By: #### 5 7021-8 ####[facility] [id number] [place] [address] [place] MCHC (RBC) [Mass/Vol] 31.9 g/dL Normal 30.5-36.0 [facility] Comment on above: Order Comment: Speci men Type: BLOOD SPECIMENOrdering Facility: [facility] Address: [address] [place] [address] Performed By: #### 5 7021-8 ####[facility] [id number] [place] [address] [place] MCV (RBC) [Entitic vol] 93.5 fL Normal 80.0-100.0 [facility] Comment on above: Order Comment: Speci men Type: BLOOD SPECIMENOrdering Facility: [facility] Address: [address] [place] [address] Performed By: #### 5 7021-8 ####[facility] [id number] [place] [address] [place] Monocytes (Bld) [#/Vol] 0.71 10*3/uL Normal <0.87 [facility] Comment on above: Order Comment: Speci men Type: BLOOD SPECIMENOrdering Facility: [facility] Address: [address] [place] [address] Performed By: #### 5 7021-8 ####[facility] LABCLIA [id number] [address] [address] [place] Monocytes/100 WBC (Bld) 8.6 % Normal [facility] Comment on above: Order Comment: Speci men Type: BLOOD SPECIMENOrdering Facility: [facility] Address: [address] [place] [address] Performed By: #### 5 7021-8 ####[facility] LABCLIA [id number] [place] [address] [place] Neutrophils (Bld) [#/Vol] 5.39 10*3/uL Normal 1.45-7.50 [facility] Comment on above: Order Comment: Speci men Type: BLOOD SPECIMENOrdering Facility: [facility] Address: [address] [place] [address] Performed By: #### 5 7021-8 ####[facility] LABCLIA [id number] [place] [address] [place] Neutrophils/100 WBC (Bld) 65.1 % Normal [facility] Comment on above: Order Comment: Speci men Type: BLOOD SPECIMENOrdering Facility: [facility] Address: [address] [place] [address] Performed By: #### 5 7021-8 ####[facility] LABCLIA [id number] [place] [address] [place] Nucleated RBC (Bld) [#/Vol] 10*3/uL Normal <0.01 [facility] Comment on above: Order Comment: Speci men Type: BLOOD SPECIMENOrdering Facility: [facility] Address: [address] [place] [address] Performed By: #### 5 7021-8 ####[facility] LABCLIA [id number] [address] [address] [place] Nucleated RBC/100 WBC (Bld) [Ratio] 0.0 /100 WBC Normal [facility] Comment on above: Order Comment: Speci men Type: BLOOD SPECIMENOrdering Facility: [facility] Address: [address] [place] [address] Performed By: #### 5 7021-8 ####[facility] LABIA [id number] [place] [address] [place] Platelet mean volume (Bld) [Entitic vol] 9.4 fL Normal 9.0-12.7 [facility] Comment on above: Order Comment: Speci men Type: BLOOD SPECIMENOrdering Facility: [facility] Address: [address] [place] [address] Performed By: #### 5 7021-8 ####[facility] LABIA [id number] [place] [address] [place] Platelets (Bld) [#/Vol] 435 10*3/uL High 150-400 [facility] Comment on above: Order Comment: Speci men Type: BLOOD SPECIMENOrdering Facility: [facility] Address: [address] [place] [address] Performed By: #### 5 7021-8 ####[facility] LABIA [id number] [place] [address] [place] RBC (Bld) [#/Vol] 3.99 10*6/uL Normal 3.90-5.20 [facility] Comment on above: Order Comment: Speci men Type: BLOOD SPECIMENOrdering Facility: [facility] Address: [address] [place] [address] Performed By: #### 5 7021-8 ####[facility] LABIA [id number] [place] [address] [place] WBC (Bld) [#/Vol] 8.28 10*3/uL Normal 3.70-11.00 [facility] Comment on above: Order Comment: Speci men Type: BLOOD SPECIMENOrdering Facility: [facility] Address: [address] [place] [address] Performed By: #### 5 7021-8 ####[facility] LABIA [id number] [place] [address] [place] Comprehensive metabolic 2000 panelon 10-23-2024 Albumin [Mass/Vol] 4.3 g/dL Normal 3.9-4.9 [facility] Comment on above: Order Comment: Speci men Type: BLOOD SPECIMENOrdering Facility: [facility] Address: [address] [place] [address] Performed By: #### 2 4323-8, 04575-6, 2276-4, 2284-8 ####[facility] LABIA [id number] [place] [address] [place] ALP [Catalytic activity/Vol] 127 U/L High 34-123 [facility] Comment on above: Order Comment: Speci men Type: BLOOD SPECIMENOrdering Facility: [facility] Address: [address] [place] [address] Performed By: #### 2 4323-8, 40763-1, 6-4, 4-8 ####[facility] LABIA [id number] [place] [address] [place] ALT [Catalytic activity/Vol] 19 U/L Normal 7-38 [facility] Comment on above: Order Comment: Speci men Type: BLOOD SPECIMENOrdering Facility: [facility] Address: [address] [place] [address] Performed By: #### 2 4323-8, 67834-6, 6-4, 4-8 ####[facility] LABIA [id number] [place] [address] [place] Anion gap [Moles/Vol] 10 mmol/L Normal 8-15 [facility] Comment on above: Order Comment: Speci men Type: BLOOD SPECIMENOrdering Facility: [facility] Address: [address] [place] [address] Performed By: #### 2 4323-8, 82573-2, 6-4, 2283-8 ####[facility] LABCLIA [id number] [place] [id number] [place] AST [Catalytic activity/Vol] 21 U/L Normal 13-35 [facility] Comment on above: Order Comment: Speci men Type: BLOOD SPECIMENOrdering Facility: [facility] Address: [address] [place] [address] Performed By: #### 2 4323-8, 99893-7, 2275-4, 2283-8 ####[facility] LABIA [id number] [place] [address] [place] Bilirubin [Mass/Vol] 0.3 mg/dL Normal 0.2-1.[address] [facility] Comment on above: Order Comment: Speci men Type: BLOOD SPECIMENOrdering Facility: [facility] Address: [address] [place] [address] Performed By: #### 2 4323-8, 43455-4, 2275-4, 8 ####[facility] LABIA [id number] [place] [address] [place] Calcium [Mass/Vol] 9.6 mg/dL Normal 8.5-10.2 [facility] Comment on above: Order Comment: Speci men Type: BLOOD SPECIMENOrdering Facility: [facility] Address: [address] [place] [address] Performed By: #### 2 4323-8, 37540-6, 2275-4, 2283-8 ####[facility] LABIA [id number] [place] [address] [place] Chloride [Moles/Vol] 103 mmol/L Normal 98-[address] [facility] Comment on above: Order Comment: Speci men Type: BLOOD SPECIMENOrdering Facility: [facility] Address: [address] [place] [address] Performed By: #### 2 4323-8, 42003-2, 2275-4, 8 ####[facility] [id number] [place] [address] [place] CO2 [Moles/Vol] 27 mmol/L Normal 22-30 [facility] Comment on above: Order Comment: Speci men Type: BLOOD SPECIMENOrdering Facility: [facility] Address: [address] [place] [address] Performed By: #### 2 4323-8, 47026-2, 4, 8 ####[facility] [id number] [place] [address] [place] Creatinine [Mass/Vol] 0.65 mg/dL Normal 0.58-0.96 [facility] Comment on above: Order Comment: Speci men Type: BLOOD SPECIMENOrdering Facility: [facility] Address: [address] [place] [address] Performed By: #### 2 4323-8, 77245-6, 4, 8 ####[facility] [id number] [place] [address] [place] Creatinine and Glomerular filtration rate.predicted panel (S/P/Bld) 100 mL/min/1.73m??? Normal >=60 [facility] Comment on above: Order Comment: Speci men Type: BLOOD SPECIMENOrdering Facility: [facility] Address: [address] [place] [address] Result Comment: Leonarda mated Glomerular Filtration Rate (eGFR) is calculated using the 2020 CKD-EPI creatinine equation. This equation utilizes serum creatinine, sex, and age as parameters. The creatinine assay has traceable calibration to isotope dilution-mass spectrometry. Refer to KDIGO guidelines for clinical interpretation. In patients with unstable renal function, e.g. those with acute kidney injury, the eGFR may not accurately reflect actual GFR. Performed By: #### 2 4323-8, 52486-3, 4, 2284-04 ####[facility] LABCLIA [id number] [address] [address] [place] Glucose [Mass/Vol] 87 mg/dL Normal 74-99 [facility] Comment on above: Order Comment: Speci men Type: BLOOD SPECIMENOrdering Facility: [facility] Address: [address] [place] [address] Result Comment: The [place] [employer] (ADA) provides guidance for cutoff values for fasting glucose and random glucose. The ADA defines fasting as no caloric intake for at least 8 hours. Fasting plasma glucose results between 100 to 125 mg/dL indicate increased risk for diabetes (prediabetes). Fasting plasma glucose results greater than or equal to 126 mg/dL meet the criteria for diagnosis of diabetes. In the absence of unequivocal hyperglycemia, results should be confirmed by repeat testing. In a patient with classic symptoms of hyperglycemia or hyperglycemic crisis, random plasma glucose results greater than or equal to 200 mg/dL meet the criteria for diagnosis of diabetes. Reference: Standards of Medical Care in Diabetes 2016, [place] [employer]. Diabetes Care. 2016.39(Suppl 1). Performed By: #### 2 4323-8, 57026-7, 2275-4, 8 ####[facility] LABCLIA [id number] [address] [address] [place] Potassium [Moles/Vol] 4.6 mmol/L Normal 3.7-5.1 [facility] Comment on above: Order Comment: Speci men Type: BLOOD SPECIMENOrdering Facility: [facility] Address: [address] [place] [address] Performed By: #### 2 4323-8, 11761-7, 2275-4, 8 ####[facility] LABCLIA [id number] [place] [address] [place] Protein [Mass/Vol] 7.2 g/dL Normal 6.3-8.0 [facility] Comment on above: Order Comment: Speci men Type: BLOOD SPECIMENOrdering Facility: [facility] Address: [address] [place] [address] Performed By: #### 2 4323-8, 86712-4, 6-4, 228-8 ####[facility] LABCLIA [id number] [place] [address] [place] Sodium [Moles/Vol] 140 mmol/L Normal 136-144 [facility] Comment on above: Order Comment: Speci men Type: BLOOD SPECIMENOrdering Facility: [facility] Address: [address] [place] [address] Performed By: #### 2 4323-8, 83962-4, 2275-4, 2283-8 ####[facility] LABCLIA [id number] [place] [address] [place] Urea nitrogen [Mass/Vol] 12 mg/dL Normal 7-21 [facility] Comment on above: Order Comment: Speci men Type: BLOOD SPECIMENOrdering Facility: [facility] Address: [address] [place] [address] Performed By: #### 2 4323-8, 08541-6, 6-4, 2283-8 ####[facility] LABCLIA [id number] [place] [address] [place] Ferritin SerPl-mCncon 2024 Ferritin [Mass/Vol] 372.0 ng/mL High 14.7-205.[address] [facility] Comment on above: Order Comment: Speci men Type: BLOOD SPECIMENOrdering Facility: [facility] Address: [address] [place] [address] Performed By: #### 2 4323-8, 22455-6, 2275-4, 2283-8 ####[facility] LABCLIA [id number] [place] [address] [place] Folate SerPl-mCncon 10-23-19 25 Folate [Mass/Vol] ng/mL Normal >4.7 [facility] Comment on above: Order Comment: Speci men Type: BLOOD SPECIMENOrdering Facility: [facility] Address: [address] [place] [address] Result Comment: A re sult of > 20 ng/mL is not necessarily indicative of a pathologic or treatable condition: it reflects a limitation of the test methodology. Assay reference range: 4.8 to 24.2 ng/mL. Suitable for detection of folate deficiency. Reference: Folate III (Folate III) [package insert V 1.0 E[place]orean]. [facility], [place], [place]: July 2015. Performed By: #### 2 4323-8, 55374-4, 6-4, 2283-8 ####[facility] LABCLIA [id number] [place] [address] [place] Iron and Iron binding capaci ty panelon 10-23-2024 Iron [Mass/Vol] 41 ug/dL Normal 41-186 [facility] Comment on above: Order Comment: Speci men Type: BLOOD SPECIMENOrdering Facility: [facility] Address: [address] [place] [address] Performed By: #### 2 4323-8, 28609-8, 2275-4, 2283-8 ####[facility] LABIA [id number] [place] [address] [place] Iron binding capacity [Mass/Vol] 270 ug/dL Normal 232-386 [facility] Comment on above: Order Comment: Speci men Type: BLOOD SPECIMENOrdering Facility: [facility] Address: [address] [place] [address] Performed By: #### 2 4323-8, 00994-3, 2275-4, 2283-8 ####[facility] LABIA [id number] [place] [id number] [place] Iron/TIBC [Molar ratio] 15.2 % Normal 15.0-57.0 [facility] Comment on above: Order Comment: Speci men Type: BLOOD SPECIMENOrdering Facility: [facility] Address: [address] [place] [address] Performed By: #### 2 4323-8, 33530-1, 2276-4, 2284-8 ####[facility] LABJULIANN [id number] [place] [id number] [facility] XR KNEE 2V AP/LAT LTon 10-23 XR KNEE 2V AP/LAT LT * * *Final Report* * * DATE OF EXAM: Oct 23 2024 8:52AM WOX [id number] - XR KNEE 2V AP/LAT LT / PROCEDURE REASON: Acute pain of left knee * * * * Physician Interpretation * * * * KNEE RADIOGRAPHS - BILATERAL HISTORY: Acute pain of left knee TECHNOLOGIST PROVIDED HISTORY (if applicable): Bilateral knee pain after recent injury, left is worst with swelling. TECHNIQUE: XR KNEE 2V AP/LAT LT, XR KNEE 2V AP/LAT RT COMPARISON: Comparison radiographs dated 04/16/2023 and 05/06/2022 RESULT: Right knee: Stable appearing total right knee arthroplasty with patellar resurfacing. No interval osteolysis or fracture. No joint effusion or soft tissue swelling. No other bony abnormality demonstrated. Left knee: Stable appearing total left knee arthroplasty with patellar resurfacing. No interval osteolysis or fracture. No joint effusion or soft tissue swelling. No other bony abnormality demonstrated. IMPRESSION: 1. Intact bilateral knee arthroplasties Data Collector: VIVIANA Transcribe Date/Time: Oct 25 2024 7:38A Dictated by : HERMAN AGEE MD This examination was interpreted and the report reviewed and electronically signed by: HERMAN AGEE MD on Oct 25 2024 7:39AM EST [id number] Normal [facility] XR KNEE 2V AP/LAT RTon 10-23 XR KNEE 2V AP/LAT RT * * *Final Report* * * DATE OF EXAM: Oct 23 2024 8:52AM WOX [id number] - XR KNEE 2V AP/LAT RT / PROCEDURE REASON: Acute pain * * * * Physician Interpretation * * * * KNEE RADIOGRAPHS - BILATERAL HISTORY: Acute pain of left knee TECHNOLOGIST PROVIDED HISTORY (if applicable): Bilateral knee pain after recent injury, left is worst with swelling. TECHNIQUE: XR KNEE 2V AP/LAT LT, XR KNEE 2V AP/LAT RT COMPARISON: Comparison radiographs dated 04/16/2023 and 05/06/2022 RESULT: Right knee: Stable appearing total right knee arthroplasty with patellar resurfacing. No interval osteolysis or fracture. No joint effusion or soft tissue swelling. No other bony abnormality demonstrated. Left knee: Stable appearing total left knee arthroplasty with patellar resurfacing. No interval osteolysis or fracture. No joint effusion or soft tissue swelling. No other bony abnormality demonstrated. IMPRESSION: 1. Intact bilateral knee arthroplasties Data Collector: VIVIANA Transcribe Date/Time: Oct 25 2024 7:38A Dictated by : HERMAN AGEE MD This examination was interpreted and the report reviewed and electronically signed by: HERMAN AGEE MD on Oct 25 2024 7:39AM EST [id number] Normal [facility] CNPNon 10-21-2024 CNPN Telephone (RHEUMN) AURY METZ ([id number]) 1965 F Date Time Provider Department 10/21/24 MINO HARRIS During your visit today, we recorded the following information about you: castroAmy barboza 10/21/2024 12:43 PM Signed Per pt phone call she had fallen around 09/15 and is experiencing swelling in both knees. Pt stated she would like orders for knee x-rays and labs. Mino Harris MD 10/21/2024 4:56 PM Signed Yes we can order XR knees bilateral 2 view AP/Lat. Can you ask if we can put it in [employer]. or provide a letter. If letter please start and send to me for signature. thanks Gilda Stephens 10/22/2024 12:24 PM Signed Patient called [facility] to arrange appointment for knee x-rays we have no orders in [facility] to accommodate this request please place order and advise patient once placed. Kevyn Turk Maa 10/22/2024 12:35 PM Signed Patient called in. Once the orders have been approved, please call her at [phone] (home) She would like to get them scheduled polly. Thank you Carmen Owens MA 10/22/2024 3:31 PM Signed Called patient notified her that her xray orders have been signed Allergies As of Date: 10/21/2024 Noted Allergy Reaction CEPHALEXIN 05/29/2005 10 - Anaphylaxis 14 - Other: See Comments Comments: Throat swelling. Has tolerated augmentin 850mg as op after this episode ACIPHEX (RABEPRAZOLE SODIUM) 07/23/2007 14 - Other: See Comments Comments: Chest pain ASHWAGANDHA 05/28/2024 7 - Swelling Comments: coffee with ashwaganda, interacted with methotrexate, throat tightening BACTRIM (SULFAMETHOXAZOLE-TRIME TH*06/12/2005 11 - Vomiting CARAFATE (SUCRALFATE) 11/10/2012 11 - Vomiting DARVOCET-N 100 (PROPOXYPHENE N-AC*05/29/2005 14 - Other: See Comments Comments: dizzy severe pain in head ERYTHROMYCIN 05/29/2005 11 - Vomiting GLUTEN 11/18/2022 5 - Intolerance IODINATED CONTRAST MEDIA 06/25/2018 12 - Shortness of Breath VANCOMYCIN 07/02/2021 9 - Itching Comments: Scalp itchy Date Reviewed: 06/10/2024 Reviewed by: Sonia Alvares OCCA - Fully Assessed Reason for Visit: Patient Update [1234] Patient Question [3097] Primary Visit Diagnosis:Acute pain of left knee [M25.562] Other Visit Diagnosis:Acute pain [R52] Order(s):XR KNEE LIMITED 2V AP/LAT LEFT [2602850] Order #: [id number] FUTURE XR KNEE LIMITED 2V AP/LAT RIGHT [[id number]] Order #: [id number] FUTURE Prescriptions as of 11/09/2024 - amoxicillin-clavulanate potassium (AUGMENTIN) 875-125 mg per tablet Take 1 tablet by mouth two times a day for 10 days. - albuterol HFA (PROVENTIL HFA, VENTOLIN HFA) 90 mcg/actuation inhaler Inhale 2 Puffs as instructed every 4 hours as needed for wheezing/shortness of breath. - benzonatate (TESSALON PERLE) 100 mg capsule Take 1 capsule by mouth three times a day as needed for cough for up to 7 days. - celecoxib (CELEBREX) 100 mg capsule TAKE 1 CAPSULE BY MOUTH EVERY 12 HOURS - Insulin Syringe-Needle U-100 (BD SAFETYGLIDE SYRINGE) 1 mL 27 gauge x 5/8 100 Each one time a week. - methotrexate sodium 25 mg/mL soln Inject 0.8 mL subcutaneously one time a week. - MULTIVITAMIN-FOLIC ACID-BIOTIN ORAL Take by mouth. - thyroid, pork, (ARMOUR THYROID) 60 mg tablet Take 1 tablet by mouth once daily. - Syringe with Needle, Disp, 1 mL 25 gauge x 1 syrg Use 1 syringe once a week for MTX SC injection - folic acid 1 mg tablet take 1 tablet by mouth every day - CPAP Pt with known NIKO confirmed by HSAT. AHI normalized with PAP. Has PAP device (Airsense 10 (5-50wsO5A)). However, not receiving masks through current DME. Requests change. NIKO sx resolved with PAP. Please fit with Dreamwear under nose FFM (not pillows). Needs supplies. Lifetime supplies. Please provide us download in 4 weeks. - Cetirizine (ZYRTEC) 10 mg cap Take 1 capsule by mouth once daily as needed (allergies). Meds Comments as of 11/20/2022: Stopped all medications except tylenol and armour thyroid and iron infusions due to surgery 06/20/22 - No Severe DDI - pt is not taking methotrexate 11/20/22 - No Severe DDI - pt is not taking methotrexate Problem List As Of Date 10/21/2024 Noted Resolved Awareness of heartbeats [R00.2] 12/20/2020 BRONCHITIS NOS [J40] 10/27/2006 DIZZINESS AND GIDDINESS [R42] 10/27/2006 Gastroesophageal reflux disease [K21.9] 10/27/2006 Anemia [D64.9] 01/04/2010 Rheumatoid arthritis (HCC) [M06.9] 05/02/2011 09/11/2016 Emotional lability [R45.86] 01/01/2013 1.1 Migraine without aura, not intractable [346*02/08/2015 11/01/2022 Intractable migraine with aura without status m*02/08/2015 11/01/2022 1.5.1 Chronic migraine [346.71] [G43.719] 02/08/2015 11/01/2022 Rheumatoid arthritis of multiple sites without *09/11/2016 Drug allergy [Z88.9] 10/25/2016 Allergy to sulfa drugs [Z88.2] 10/25/2016 Rash and nonspecific skin eruption [R21] 10/25/2016 Hypothyroidism [E (more content not included)... Normal [facility] ([id number]) 1965 F Date Time Provider Department 10/18/24 TIMBO BRIGHT INTMWS During your visit today, we recorded the following information about you: Joanne Snyder, RN 10/18/2024 8:16 AM Signed Pt called in and reports she hasn't felt good all weekend. She reports she hasn't been able to think straight and has been really fatigued. She reports sometimes her iron gets low because she is on Methotrexate. Pt reports she has an appointment with her Child Nutrition Director but it isn't until November. She was asking if provider could put in labs for her to come I an get done, because she runs anemic and to check her iron. Please call and advise Pt. Timbo Bright MD 10/22/2024 1:01 PM Signed Filed order Heather Shelby LPN 10/22/2024 1:17 PM Signed Spoke with pt gave information provided.Pt voices understanding. Allergies As of Date: 10/18/2024 Noted Allergy Reaction CEPHALEXIN 05/29/2005 10 - Anaphylaxis 14 - Other: See Comments Comments: Throat swelling. Has tolerated augmentin 850mg as op after this episode ACIPHEX (RABEPRAZOLE SODIUM) 07/23/2007 14 - Other: See Comments Comments: Chest pain ASHWAGANDHA 05/28/2024 7 - Swelling Comments: coffee with sharron, interacted with methotrexate, throat tightening BACTRIM (SULFAMETHOXAZOLE-TRIME TH*06/12/2005 11 - Vomiting CARAFATE (SUCRALFATE) 11/10/2012 11 - Vomiting DARVOCET-N 100 (PROPOXYPHENE N-AC*05/29/2005 14 - Other: See Comments Comments: dizzy severe pain in head ERYTHROMYCIN 05/29/2005 11 - Vomiting GLUTEN 11/18/2022 5 - Intolerance IODINATED CONTRAST MEDIA 06/25/2018 12 - Shortness of Breath VANCOMYCIN 07/02/2021 9 - Itching Comments: Scalp itchy Date Reviewed: 06/10/2024 Reviewed by: Sonia Alvares OCCA - Fully Assessed Reason for Visit: Orders [681] Patient Update [1234] Primary Visit Diagnosis:Encounter for long-term current use of medication [Z79.899] Other Visit Diagnosis:Other fatigue [R53.83] Order(s):FOLATE, SERUM [SQSERFOL] Order #: [id number] FUTURE FERRITIN [SQFERR] Order #: [id number] FUTURE IRON AND TIBC [SQIRON] Order #: [id number] FUTURE COMPREHENSIVE METABOLIC PANEL [SQCMP] Order #: [id number] FUTURE COMPLETE BLOOD COUNT AND DIFFERENTIAL [SQCBCDIF] Order #: [id number] FUTURE Prescriptions as of 10/22/2024 - celecoxib (CELEBREX) 100 mg capsule TAKE 1 CAPSULE BY MOUTH EVERY 12 HOURS - Insulin Syringe-Needle U-100 (BD SAFETYGLIDE SYRINGE) 1 mL 27 gauge x 5/8 100 Each one time a week. - methotrexate sodium 25 mg/mL soln Inject 0.8 mL subcutaneously one time a week. - MULTIVITAMIN-FOLIC ACID-BIOTIN ORAL Take by mouth. - thyroid, pork, (ARMOUR THYROID) 60 mg tablet Take 1 tablet by mouth once daily. - Syringe with Needle, Disp, 1 mL 25 gauge x 1 syrg Use 1 syringe once a week for MTX SC injection - folic acid 1 mg tablet take 1 tablet by mouth every day - [facility] USE 1 DEVICE ONLY ONCE FOR 1 DOSE - albuterol HFA (PROVENTIL HFA, VENTOLIN HFA) 90 mcg/actuation inhaler Inhale 2 Puffs as instructed every 4 hours as needed for wheezing/shortness of breath. - CPAP Pt with known NIKO confirmed by HSAT. AHI normalized with PAP. Has PAP device (Airsense 10 ([id number])). However, not receiving masks through current DME. Requests change. NIKO sx resolved with PAP. Please fit with Dreamwear under nose FFM (not pillows). Needs supplies. Lifetime supplies. Please provide us download in 4 weeks. - Cetirizine (ZYRTEC) 10 mg cap Take 1 capsule by mouth once daily as needed (allergies). Meds Comments as of 11/20/2022: Stopped all medications except tylenol and armour thyroid and iron infusions due to surgery 06/20/22 - No Severe DDI - pt is not taking methotrexate 11/20/22 - No Severe DDI - pt is not taking methotrexate Problem List As Of Date 10/18/2024 Noted Resolved Awareness of heartbeats [R00.2] 12/20/2020 BRONCHITIS NOS [J40] 10/27/2006 DIZZINESS AND GIDDINESS [R42] 10/27/2006 Gastroesophageal reflux disease [K21.9] 10/27/2006 Anemia [D64.9] 01/04/2010 Rheumatoid arthritis (HCC) [M06.9] 05/02/2011 09/11/2016 Emotional lability [R45.86] 01/01/2013 1.1 Migraine without aura, not intractable [346*02/08/2015 11/01/2022 Intractable migraine with aura without status m*02/08/2015 11/01/2022 1.5.1 Chronic migraine [346.71] [G43.719] 02/08/2015 11/01/2022 Rheumatoid arthritis of multiple sites without *09/11/2016 Drug allergy [Z88.9] 10/25/2016 Allergy to sulfa drugs [Z88.2] 10/25/2016 Rash and nonspecific skin eruption [R21] 10/25/2016 Hypothyroidism [E03.9] 07/15/2017 Moderate obstructive sleep apnea [G47.33] 01/19/2019 Acute pain of both knees [M25.561, M25.562] 04/10/2020 Knee joint stiffness, bilateral [M25.661, M25.6*04/10/2020 Difficulty walking [R26.2] 04/10/2020 Hip stiffness, unspecified laterality [M25.659] 04/10/2020 Right (more content not included)... Normal [facility]gent [facility] Visit Reporton 1 11-20-2023 Urgent Care Visit Report [facility] [address], [address] [place] [address] OFFICE VISIT Date of Service: 09/19/24 MR#: [id number] Acct: [id number] Name: AURY METZ Rep #: [id number] : 1965 Provider: LAURA byrd Age/Sex: 59/F Location: [facility] [place] Status: Signed Intake Vital Signs 09/10/22 11:22 09/19/24 10:10 Height 5 ft 5 in 5 ft 5 in BP 118/70 Blood Pressure Location Lt brachial Position Sitting Respiration 15 Pulse 74 Pulse Source NIBP Temp 98.2 F Temp Source Oral Pulse Oximetry (%) 98 Oxygen Delivery Method room air Intake Visit Reasons: SWOLLEN L KNEE / CONCERN FOR INFECTION L JAW Chief Complaint: left lower tooth pain/ left knee pain and swelling Insurance Advisor Required: No Is patient in pain?: Yes Allergies Iodinated Contrast Media (CONTRASTS) Allergy (Severe, Verified 09/19/24 11:25) Shortness of breath metronidazole (From Flagyl) Allergy (Severe, Verified 09/19/24 11:25) Swelling vancomycin Allergy (Mild, Verified 09/19/24 11:25) Itching cephalexin monohydrate (From Keflex) Allergy (Verified 09/19/24 11:25) Shortness of breath Is last menstrual period known: No Post menopausal: Yes Patient : No Have you fallen in the past year?: No Nurse's Note: left lower tooth pain x 4 days/ left knee pain and swelling since this morning. pt has RA and is on Methotrexate, unsure if knee is a flare or related to tooth infection. no redness to knee. has had success with Augmentin 875 per pt and clinical trial associate has approved this med for her in the past. appt with research tech upcoming but they would not prescribe until they see pt. [facility] Medical History Influenza A COVID-19 Treadmill stress test negative for angina pectoris Frequent headaches Hypothyroidism Calcific tendinitis of right shoulder Fibromyalgia Rheumatoid arthritis flare AC joint arthropathy Contusion of right shoulder Acute bronchitis Difficulty balancing Rheumatoid arthritis Back pain Neck pain Asthma Knee pain Diarrhea Hay fever Fatigue Anemia Arthritis History of esophageal dilatation Esophageal tissue web Raynaud phenomenon GERD (gastroesophageal reflux disease) History of rheumatoid arthritis Surgical History History of tubal ligation History of knee surgery Social History Smoking Status: Never smoker alcohol intake: never HPI HPI Chief Complaint: left lower tooth pain/ left knee pain and swelling Details: AURY METZ, is a 59 F who presents to the office today for concerns regarding tooth pain and left knee swelling. ROS Const Constitutional: No body ache, chills, fatigue, fever(s), headache(s) or change in appetite Eyes Eyes: No blurry vision, change in vision, double vision, irritation, discharge, vision loss, dry eyes, bulging eyes, floaters, visual disturbances, eye pain, Light sensitivity, spots in vision, t unnel vision or other ENT ENT: No ear or mastoid pain, ear discharge, ear pressure, tinnitus, dizziness/vertigo, nosebleed/epistaxis, nasal congestion, nose pain, sinus pressure, sinus pain, nasal discharge, post nasal drip, headache(s), facial pain, dental pain, difficulty swallowing, bad breath, hoarseness, lip swelling, mouth lesions, mouth pain, neck pain, sore throat, tongue swelling or throat swelling Resp Respiratory: No cough, change in phlegm color, chest congestion, hemoptysis, pain on inspiration, shortness of breath, pain with cough, stridor or wheezing Cardio Cardiology: No chest pain at rest, chest pain with exertion, shortness of breath, dyspnea on exertion or lightheadedness Gastro GI: No abdominal pain, change in bowel habits or difficulty swallowing Genitourinary-Female: No burning urination or urinary frequency Musc Musculoskeletal: No joint pain or neck pain Skin Skin: No rash Neuro Neurology: No headache(s) or visual disturbances Psych Psychiatric: No change in appetite Endo Endocrine: No fatigue Aller/Imm Allergy/Immunologic: No lip swelling, throat swelling, tongue swelling or wheezing Exam Const General: cooperative, healthy appearing, comfortable and no acute distress Orientation: alert, awake and oriented x3 HENMT Head: normal to inspection and normocephalic Ears: hearing grossly normal bilaterally, external ears normal and TM's normal bilaterally Nose: external nose normal, nares normal and no nasal discharge Face and sinus: normal facial exam and sinuses nontender Mouth: oral mucosae normal, lip normal, tongue normal, oropharynx normal and moist mucous membranes Throat: posterior oropharynx normal, tonsils normal, uvula midline and no postnasal drainage Eyes Gener (more content not included)... Normal [facility] CNOVon 06-10-2024 CNOV Office Visit (RHEUMN ) AURY METZ ([id number]) 1965 F Date Time Provider Department 06/10/24 10:00 AM MINO HARRIS During your visit today, we recorded the following information about you: Temperature Pulse Blood pressure Weight 97.9 degrees 69/minute 108/51 63.1 kg Mino Harris MD 06/10/2024 11:31 PM Signed Rheumatology Clinic FOLLOW UP Date of Service: 06/10/2024 Patient: Aury Metz Medical Record: [id number] Primary Care Physician: Timbo Bright MD Last Rheumatology visit: 03/26/2023 (with Mino Harris) History of Present Illness Aury Metz is a 59 year old White female who presents on 06/10/2024 for an in-person visit for evaluation of Rheumatoid Arthritis. She is currently taking celecoxib, methotrexate sodium, prednisone. RA seropos non erosive Aury is RF positive - 48 (01/11/2012) and CCP negative - 20 (05/01/2011). Her most recent KENY was positive (05/05/2013). She does not have erosive disease. There are no rheumatoid nodules present. Aury has mild joint swelling. She reports morning stiffness . HISTORY OF PRESENT ILLNESS 59 year old with RF+, CCP negative (intermittent +CCP in the past) Nonerosive MTX 6 tabs weekly celebrex Past treatment: Plaquenil: LE numbness Methotrexate: Became ineffective after 7 years Arava: Rash Humira: SOB Enbrel: ?? Not sure why it was stopped. She thinks she only had one injection. Cymbalta: mind could not shut off. Xelemilia: Insurance would not cover, despite an appeal. 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 Musculoskeletal History Joint swelling Joint Replacement(s) Joint Date Laterality Comment Knee 07/02/21 Right No other arthritis-related surgery Rheumatoid Arthritis History Rheumatoid Factor Positive Anti CCP negative No erosive No rheumatoid nodules Morning stiffness Joint Swelling Joint replacement Joint Date Laterality Comment Knee 07/02/21 Right No other RA-related surgery Extra-Articular Features / Comorbidities Anemia Rheum/Ortho Arthrocentesis Injections (last 5) 10/05/2020 14:00 07/02/2021 06/18/2022 09:45 11/18/2022 Injection History Medication - Right 40 mg methylPREDNISolone acetate 40 mg/mL Medication - Left 40 mg methylPREDNISolone acetate 40 mg/mL Medication bupivacaine-dextrose 0.75 % (7.5 mg/mL) injection (SENSORCAINE MPF SPINAL), 2 mL bupivacaine-dextrose 0.75 % (7.5 mg/mL) injection (SENSORCAINE MPF SPINAL) - INTRASPINAL 1.8 mL - 06/18/2022 9:45:00 AM ropivacaine (PF) 5 mg/mL (0.5 %) injection (NAROPIN) - peripheral nerve block 20 mL - 11/18/2022 10:26:00 AM dexamethasone sodium phosphate injection (DECADRON) - peripheral nerve block 4 mg - 11/18/2022 10:26:00 AM Location knee Knee Site bilateral knee joints Details More values are hidden. Newest values shown. Go to activity for more data. Last Orthopaedic Surgery in Each Joint Aury had knee surgery on 11/18/2022 with Anival Ambriz. Aury had hip surgery on 06/18/2022 with Anival Ambriz. Patient-Entered Data Pain Scores 08/29/2023 08/29/2023 08/29/2023 Pain Evaluation Pain Score 0 0 0 PROMIS Assessments 09/04/2023 10/02/2023 04/30/2024 PROMIS Global Health - (T-Scores - the mean of general population = 50. Five points is a clinically meaningful difference.) Physical T-Score 44.9 44.9 44.9 44.9 50.8 Mental T-Score 53.3 53.3 53.3 53.3 45.8 10/02/2023 04/30/2024 06/07/2024 PROMIS CAT Pain Interference PROMIS Pain Interference T-Score (range: 10 - 90) 56 (mild) PROMIS Pain Interference Percentile 27 PROMIS Adult Short Form-Global Health Score (Mental) 53.3 (Very Good) 45.8 (Good) 11/07/2022 03/19/2023 06/07/2024 PROMIS CAT Fatigue PROMIS Fatigue T-Score 51 (within normal limits) 55 (within normal limits) 51 (within normal limits) PROMIS Fatigue Percentile 46 31 46 02/03/2023 03/19/2023 06/07/2024 PROMIS PHYSICAL FUNCTION T-SCORE PROMIS Physical Function T-Score 36 (moderate dysfunction) 38 (moderate dysfunction) 40 (mild dysfunction) Physical Function Percentile 8 12 16 RAPID 3 Gonzalez Activities of Daily Living 06/07/2024 5:38 AM 03/19/2023 10:26 PM 11/07/2022 12:13 PM First answer obtained - 06/19/2020 9:12 AM Dress self? With SOME difficulty With SOME difficulty With SOME difficulty Without ANY difficulty Get in and out of bed? With SOME difficulty Without ANY difficulty Without ANY difficulty With SOME difficulty Walk outdoors? With SOME difficulty With SOME difficulty With MUCH difficulty Without ANY difficulty Wash and dry body? With SOME difficulty Wi (more content not included)... Normal [facility] CNOVon 05-28-2024 CNOV Office Visit (INTMWS ) AURY METZ ([id number]) 1965 F Date Time Provider Department 05/28/24 2:00 PM EV BERGER INTMWS During your visit today, we recorded the following information about you: Pulse Respiration Blood pressure Weight 85/minute 16/minute 100/62 64.1 kg Height 1.638 m Ev Berger, TRASH COLLECTOR.DIE CUTTING MACHINE OPERATOR 05/28/2024 4:02 PM Signed SUBJECTIVE: Covid-19 Vaccine(1) Never done Pneumococcal Vaccine(1 of 2 - PCV) Never done Depression Screening Never done Anxiety Screening Never done Shingrix Vaccine(1 of 2) Never done Cervical Cancer Screening due on 05/23/2012 DTaP,Tdap,Td Vaccine(2 - Tdap) due on 04/22/2014 Mammogram Screening due on 11/21/2022 RSV Vaccine(1 - 1-dose 60+ series) Never done Annual PCP Team Chronic Disease Visit due on 02/27/2024 Influenza Vaccine(1) due on 05/23/2024 HPI Aury Metz is a 59 year old female. PMH significant for ACTIVE PROBLEM LIST Awareness of Heartbeats Gastroesophageal Reflux Disease Anemia Emotional Lability Rheumatoid Arthritis of Multiple Sites Without Organ Or System Involvement With Positive Rheumatoid Factor (Hcc) Drug Allergy Allergy to Sulfa Drugs Rash and Nonspecific Skin Eruption Hypothyroidism Moderate Obstructive Sleep Apnea Acute Pain of Both Knees Knee Joint Stiffness, Bilateral Difficulty Walking Hip Stiffness, Unspecified Laterality Right Lumbar Radiculitis Lumbar Spondylosis Chronic Right-Sided Low Back Pain With Right-Sided Sciatica Rheumatoid Arthritis Involving Both Knees With Positive Rheumatoid Factor (Hcc) Exercise-Induced Asthma Status Post Knee Replacement Raynaud Phenomenon Calcific Tendinitis of Right Shoulder Cervical Radiculopathy Disorder of Acromioclavicular Joint Personal History of Rheumatoid Arthritis History of Hypothyroidism Fibromyalgia 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 Mindy (Iron Deficiency Anemia) Status Post Total Replacement of Right Hip Reaction to Contrast Media Primary Osteoarthritis of Left Knee S/P Total Knee Arthroplasty, Left Mino Harris MD Rheumatology Anival Ambriz MD Orthopedics She notes that she had an allergic type reaction to coffee with ashwaganda. She noted some throat tightening. She was triaged at the ER but ended up leaving before being seen. Today notes that this has resolved and no further symptoms since not drinking the coffee. Notes continues to be feel limited by rheumatology. Taking methotrexate folic acid and Celebrex. Notes CPAP mask really does not work. Has had trouble breathing with it. Not consistently using it currently due to this. Hypothyroidism. She is doing well on her current dose of thyroid replacement. TSH Date Value 05/01/2024 1.590 mIU/L 03/15/2023 1.310 mIU/L 09/06/2021 0.916 uU/mL 01/04/2021 1.080 uU/mL ) Review of Systems Constitutional: Negative. Musculoskeletal: Positive for arthralgias. Objective BP 100/62 Pulse 85 Resp 16 Ht 163.8 cm (5' 4.5) Wt 64.1 kg (141 lb 5 oz) LMP 06/15/2015 (Exact Date) BMI 23.88 kg/m? Physical Exam Vitals and nursing note reviewed. Constitutional: Appearance: Normal appearance. HENT: Head: Normocephalic and atraumatic. Eyes: Conjunctiva/sclera: Conjunctivae normal. Cardiovascular: Rate and Rhythm: Normal rate. Pulmonary: Effort: Pulmonary effort is normal. Musculoskeletal: Comments: Small palpable nodules bilateral wrists. Skin: General: Skin is warm and dry. Neurological: General: No focal deficit present. Mental Status: She is alert and oriented to person, place, and time. ALLERGIES Allergen Reactions Cephalexin Anaphylaxis, Other: See Comments Throat swelling. Has tolerated augmentin 850mg as op after this episode Aciphex [Rabeprazol* Other: See Comments Chest pain Ashwagandha Swelling coffee with ashwaganda, interacted with methotrexate, throat tightening Bactrim [Sulfametho* Vomiting Carafate [Sucralfat* Vomiting Darvocet-N 100 [Pro* Other: See Comments dizzy severe pain in head Erythromycin Vomiting Gluten Intolerance Iodinated Contrast * Shortness of Breath Vancomycin Itching Scalp itchy Medications methotrexate sodium 25 mg/mL solnINJECT 0.6 ML SUBCUTANEOUSLY ONE TIME A WEEK.Disp: 12 mLRfl: 2 MULTIVITAMIN-FOLIC ACID-BIOTIN ORALTake by mouth.Disp: Rfl: thyroid, pork, (ARMOUR THYROID) 60 mg tabletTake 1 tablet by mouth once daily.Disp: 90 tabletRfl: 3 celecoxib (CELEBREX) 100 mg capsuletake 1 capsule by mouth every 12 hoursDisp: 180 capsuleRfl: 1 Syringe with Needle, Disp, 1 mL 25 gauge x 1 syrgUse 1 syringe once a week for MTX SC injectionDisp: 100 EachRfl: 0 folic acid 1 mg tablettake 1 tablet by mouth every dayDisp: 90 tabletRfl: 3 Insulin Syringe-Needle U-100 1 mL 27 gauge x 1/2 syrg1 Each one time a week. To be used for methotrexate injectionDisp: 100 EachRfl: 1 OPTI (more content not included)... Normal [facility] CBC W Auto Differential pane l (Bld)on 05-01-2024 Basophils (Bld) [#/Vol] 0.04 10*3/uL Normal <0.11 [facility] Comment on above: Order Comment: Speci men Type: BLOOD SPECIMENOrdering Facility: [facility] Address: [address] [place] [address] Performed By: #### 5 7021-8 ####[facility] LABCLIA [id number] [place] [address] [place] Basophils/100 WBC (Bld) 0.5 % Normal [facility] Comment on above: Order Comment: Speci men Type: BLOOD SPECIMENOrdering Facility: [facility] Address: [address] [place] [address] Performed By: #### 5 7021-8 ####[facility] LABCLIA [id number] [place] [address] [place] Differential cell count method Nom (Bld) Auto Normal [facility] Comment on above: Order Comment: Speci men Type: BLOOD SPECIMENOrdering Facility: [facility] Address: [address] [place] [address] Performed By: #### 5 7021-8 ####[facility] LABCLIA [id number] [place] [address] [place] Eosinophils (Bld) [#/Vol] 0.21 10*3/uL Normal <0.46 [facility] Comment on above: Order Comment: Speci men Type: BLOOD SPECIMENOrdering Facility: [facility] Address: [address] [place] [address] Performed By: #### 5 7021-8 ####[facility] LABCLIA [id number] [place] [address] [place] Eosinophils/100 WBC (Bld) 2.6 % Normal [facility] Comment on above: Order Comment: Speci men Type: BLOOD SPECIMENOrdering Facility: [facility] Address: [address] [place] [address] Performed By: #### 5 7021-8 ####[facility] LABCLIA [id number] [place] [address] [place] Erythrocyte distribution width (RBC) [Ratio] 15.9 % High 11.5-15.0 [facility] Comment on above: Order Comment: Speci men Type: BLOOD SPECIMENOrdering Facility: [facility] Address: [address] [place] [address] Performed By: #### 5 7021-8 ####[facility] LABCLIA [id number] [place] [address] [place] Hematocrit (Bld) [Volume fraction] 37.9 % Normal 36.0-46.0 [facility] Comment on above: Order Comment: Speci men Type: BLOOD SPECIMENOrdering Facility: [facility] Address: [address] [place] [address] Performed By: #### 5 7021-8 ####[facility] LABCLIA [id number] [place] [address] [place] Hemoglobin (Bld) [Mass/Vol] 12.3 g/dL Normal 11.5-15.5 [facility] Comment on above: Order Comment: Speci men Type: BLOOD SPECIMENOrdering Facility: [facility] Address: [address] [place] [address] Performed By: #### 5 7021-8 ####[facility] LABCLIA [id number] [place] [address] [place] Immature granulocytes (Bld) [#/Vol] 10*3/uL Normal <0.10 [facility] Comment on above: Order Comment: Speci men Type: BLOOD SPECIMENOrdering Facility: [facility] Address: [address] [place] [address] Performed By: #### 5 7021-8 ####[facility] LABCLIA [id number] [place] [address] [place] Immature granulocytes/100 WBC (Bld) 0.2 % Normal [facility] Comment on above: Order Comment: Speci men Type: BLOOD SPECIMENOrdering Facility: [facility] Address: [address] [place] [address] Performed By: #### 5 7021-8 ####[facility] LABCLIA [id number] [place] [address] [place] Lymphocytes (Bld) [#/Vol] 1.88 10*3/uL Normal 1.00-4.00 [facility] Comment on above: Order Comment: Speci men Type: BLOOD SPECIMENOrdering Facility: [facility] Address: [address] [place] [address] Performed By: #### 5 7021-8 ####[facility] LABCLIA [id number] [place] [address] [place] Lymphocytes/100 WBC (Bld) 23.4 % Normal [facility] Comment on above: Order Comment: Speci men Type: BLOOD SPECIMENOrdering Facility: [facility] Address: [address] [place] [address] Performed By: #### 5 7021-8 ####[facility] LABCLIA [id number] [place] [address] [place] MCH (RBC) [Entitic mass] 29.6 pg Normal 26.0-34.0 [facility] Comment on above: Order Comment: Speci men Type: BLOOD SPECIMENOrdering Facility: [facility] Address: [address] [place] [address] Performed By: #### 5 7021-8 ####[facility] LABCLIA [id number] [place] [address] [place] MCHC (RBC) [Mass/Vol] 32.5 g/dL Normal 30.5-36.0 [facility] Comment on above: Order Comment: Speci men Type: BLOOD SPECIMENOrdering Facility: [facility] Address: [address] [place] [address] Performed By: #### 5 7021-8 ####[facility] LABCLIA [id number] [place] [address] [place] MCV (RBC) [Entitic vol] 91.3 fL Normal 80.0-100.0 [facility] Comment on above: Order Comment: Speci men Type: BLOOD SPECIMENOrdering Facility: [facility] Address: [address] [place] [address] Performed By: #### 5 7021-8 ####[facility] LABIA [id number] [place] [address] [place] Monocytes (Bld) [#/Vol] 0.60 10*3/uL Normal <0.87 [facility] Comment on above: Order Comment: Speci men Type: BLOOD SPECIMENOrdering Facility: [facility] Address: [address] [place] [address] Performed By: #### 5 7021-8 ####[facility] LABCLIA [id number] [place] [address] [place] Monocytes/100 WBC (Bld) 7.5 % Normal [facility] Comment on above: Order Comment: Speci men Type: BLOOD SPECIMENOrdering Facility: [facility] Address: [address] [place] [address] Performed By: #### 5 7021-8 ####[facility] LABCLIA [id number] [place] [address] [place] Neutrophils (Bld) [#/Vol] 5.27 10*3/uL Normal 1.45-7.50 [facility] Comment on above: Order Comment: Speci men Type: BLOOD SPECIMENOrdering Facility: [facility] Address: [address] [place] [address] Performed By: #### 5 7021-8 ####[facility] LABCLIA [id number] [place] [address] [place] Neutrophils/100 WBC (Bld) 65.8 % Normal [facility] Comment on above: Order Comment: Speci men Type: BLOOD SPECIMENOrdering Facility: [facility] Address: [address] [place] [address] Performed By: #### 5 7021-8 ####[facility] LABCLIA [id number] [place] [address] [place] Nucleated RBC (Bld) [#/Vol] 10*3/uL Normal <0.01 [facility] Comment on above: Order Comment: Speci men Type: BLOOD SPECIMENOrdering Facility: [facility] Address: [address] [place] [address] Performed By: #### 5 7021-8 ####[facility] LABCLIA [id number] [place] [address] [place] Nucleated RBC/100 WBC (Bld) [Ratio] 0.0 /100 WBC Normal [facility] Comment on above: Order Comment: Speci men Type: BLOOD SPECIMENOrdering Facility: [facility] Address: [address] [place] [address] Performed By: #### 5 7021-8 ####[facility] LABCLIA [id number] [place] [address] [place] Platelet mean volume (Bld) [Entitic vol] 9.8 fL Normal 9.0-12.7 [facility] Comment on above: Order Comment: Speci men Type: BLOOD SPECIMENOrdering Facility: [facility] Address: [address] [place] [address] Performed By: #### 5 7021-8 ####[facility] LABIA [id number] [place] [address] [place] Platelets (Bld) [#/Vol] 342 10*3/uL Normal 150-400 [facility] Comment on above: Order Comment: Speci men Type: BLOOD SPECIMENOrdering Facility: [facility] Address: [address] [place] [address] Performed By: #### 5 7021-8 ####[facility] LABIA [id number] [place] [address] [place] RBC (Bld) [#/Vol] 4.15 10*6/uL Normal 3.90-5.20 [facility] Comment on above: Order Comment: Speci men Type: BLOOD SPECIMENOrdering Facility: [facility] Address: [address] [place] [address] Performed By: #### 5 7021-8 ####[facility] LABIA [id number] [place] [address] [place] WBC (Bld) [#/Vol] 8.02 10*3/uL Normal 3.70-11.00 [facility] Comment on above: Order Comment: Speci men Type: BLOOD SPECIMENOrdering Facility: [facility] Address: [address] [place] [address] Performed By: #### 5 7021-8 ####[facility] LABIA [id number] [place] [address] [place] Comprehensive metabolic 2000 panelon 05-01-2024 Albumin [Mass/Vol] 4.3 g/dL Normal 3.9-4.9 [facility] Comment on above: Order Comment: Speci men Type: BLOOD SPECIMENOrdering Facility: [facility] Address: [address] [place] [address] Performed By: #### 2 4323-8, 6-4, 8 ####[facility] LABCLIA [id number] [place] [address] [place] ALP [Catalytic activity/Vol] 100 U/L Normal 34-123 [facility] Comment on above: Order Comment: Speci men Type: BLOOD SPECIMENOrdering Facility: [facility] Address: [address] [place] [address] Performed By: #### 2 4323-8, 2275-4, 8 ####[facility] LABCLIA [id number] [place] [address] [place] ALT [Catalytic activity/Vol] 16 U/L Normal 7-38 [facility] Comment on above: Order Comment: Speci men Type: BLOOD SPECIMENOrdering Facility: [facility] Address: [address] [place] [address] Performed By: #### 2 4323-8, 4, 8 ####[facility] LABCLIA [id number] [place] [address] [place] Anion gap [Moles/Vol] 11 mmol/L Normal 8-15 [facility] Comment on above: Order Comment: Speci men Type: BLOOD SPECIMENOrdering Facility: [facility] Address: [address] [place] [address] Performed By: #### 2 4323-8, 2275-4, 8 ####[facility] LABCLIA [id number] [address] [address] [place] AST [Catalytic activity/Vol] 22 U/L Normal 13-35 [facility] Comment on above: Order Comment: Speci men Type: BLOOD SPECIMENOrdering Facility: [facility] Address: [address] [place] [address] Performed By: #### 2 4323-8, 2275-12, 2284-04 ####[facility] LABCLIA [id number] [address] [address] [place] Bilirubin [Mass/Vol] 0.2 mg/dL Normal 0.2-1.[address] [facility] Comment on above: Order Comment: Speci men Type: BLOOD SPECIMENOrdering Facility: [facility] Address: [address] [place] [address] Performed By: #### 2 4323-8, 2275-12, 2284-04 ####[facility] LABCLIA [id number] [place] [address] [place] Calcium [Mass/Vol] 9.6 mg/dL Normal 8.5-10.2 [facility] Comment on above: Order Comment: Speci men Type: BLOOD SPECIMENOrdering Facility: [facility] Address: [address] [place] [address] Performed By: #### 2 4323-8, 2275-12, 2284-04 ####[facility] LABCLIA [id number] [address] [address] [place] Chloride [Moles/Vol] 104 mmol/L Normal 98-[address] [facility] Comment on above: Order Comment: Speci men Type: BLOOD SPECIMENOrdering Facility: [facility] Address: [address] [place] [address] Performed By: #### 2 4323-8, 2275-12, 2284-04 ####[facility] LABCLIA [id number] [address] [address] [place] CO2 [Moles/Vol] 26 mmol/L Normal 22-30 [facility] Comment on above: Order Comment: Speci men Type: BLOOD SPECIMENOrdering Facility: [facility] Address: [address] [place] [address] Performed By: #### 2 4323-8, 2275-12, 2284-04 ####[facility] LABCLIA [id number] [address] [address] [place] Creatinine [Mass/Vol] 0.70 mg/dL Normal 0.58-0.96 [facility] Comment on above: Order Comment: Speci men Type: BLOOD SPECIMENOrdering Facility: [facility] Address: [address] [place] [address] Performed By: #### 2 4323-8, 2275-12, 2284-04 ####[facility] LABIA [id number] [place] [address] [place] Creatinine and Glomerular filtration rate.predicted panel (S/P/Bld) 99 mL/min/1.73m??? Normal >=60 [facility] Comment on above: Order Comment: Speci men Type: BLOOD SPECIMENOrdering Facility: [facility] Address: [address] [place] [address] Result Comment: Leonarda mated Glomerular Filtration Rate (eGFR) is calculated using the 2020 CKD-EPI creatinine equation. This equation utilizes serum creatinine, sex, and age as parameters. The creatinine assay has traceable calibration to isotope dilution-mass spectrometry. Refer to KDIGO guidelines for clinical interpretation. In patients with unstable renal function, e.g. those with acute kidney injury, the eGFR may not accurately reflect actual GFR. Performed By: #### 2 4323-8, 2275-12, 2284-04 ####[facility] LABIA [id number] [place] [id number] [place] Glucose [Mass/Vol] 89 mg/dL Normal 74-99 [facility] Comment on above: Order Comment: Speci men Type: BLOOD SPECIMENOrdering Facility: [facility] Address: [address] [place] [address] Result Comment: The [place] [employer] (ADA) provides guidance for cutoff values for fasting glucose and random glucose. The ADA defines fasting as no caloric intake for at least 8 hours. Fasting plasma glucose results between 100 to 125 mg/dL indicate increased risk for diabetes (prediabetes). Fasting plasma glucose results greater than or equal to 126 mg/dL meet the criteria for diagnosis of diabetes. In the absence of unequivocal hyperglycemia, results should be confirmed by repeat testing. In a patient with classic symptoms of hyperglycemia or hyperglycemic crisis, random plasma glucose results greater than or equal to 200 mg/dL meet the criteria for diagnosis of diabetes. Reference: Standards of Medical Care in Diabetes 2016, [place] [employer]. Diabetes Care. 2016.39(Suppl 1). Performed By: #### 2 4323-8, 2275-4, 8 ####[facility] LABCLIA [id number] [place] [address] [place] Potassium [Moles/Vol] 4.4 mmol/L Normal 3.7-5.1 [facility] Comment on above: Order Comment: Speci men Type: BLOOD SPECIMENOrdering Facility: [facility] Address: [address] [place] [address] Performed By: #### 2 4323-8, 4, 2284-04 ####[facility] LABIA [id number] [place] [address] [place] Protein [Mass/Vol] 7.3 g/dL Normal 6.3-8.0 [facility] Comment on above: Order Comment: Speci men Type: BLOOD SPECIMENOrdering Facility: [facility] Address: [address] [place] [address] Performed By: #### 2 4323-8, 4, 8 ####[facility] LABIA [id number] [place] [address] [place] Sodium [Moles/Vol] 141 mmol/L Normal 136-144 [facility] Comment on above: Order Comment: Speci men Type: BLOOD SPECIMENOrdering Facility: [facility] Address: [address] [place] [address] Performed By: #### 2 4323-8, 6-4, 8 ####[facility] LABCLIA [id number] [place] [address] [place] Urea nitrogen [Mass/Vol] 11 mg/dL Normal 7-21 [facility] Comment on above: Order Comment: Speci men Type: BLOOD SPECIMENOrdering Facility: [facility] Address: [address] [place] [address] Performed By: #### 2 4323-8, 2275-4, 8 ####[facility] LABCLIA [id number] [place] [address] [place] Ferritin SerPl-mCncon 2023 Ferritin [Mass/Vol] 319.0 ng/mL High 14.7-205.[address] [facility] Comment on above: Order Comment: Speci men Type: BLOOD SPECIMENOrdering Facility: [facility] Address: [address] [place] [address] Performed By: #### 2 4323-8, 4, 8 ####[facility] LABIA [id number] [place] [address] [place] Folate SerPl-mCncon 05-01-20 24 Folate [Mass/Vol] ng/mL Normal >4.7 [facility] Comment on above: Order Comment: Speci men Type: BLOOD SPECIMENOrdering Facility: [facility] Address: [address] [place] [address] Result Comment: A re sult of > 20 ng/mL is not necessarily indicative of a pathologic or treatable condition: it reflects a limitation of the test methodology. Assay reference range: 4.8 to 24.2 ng/mL. Suitable for detection of folate deficiency. Reference: Folate III (Folate III) [package insert V 1.0 Ecuadorean]. [facility], [place], [place]: July 2015. Performed By: #### 2 4323-8, 6-4, 2283-8 ####[facility] LABCLIA [id number] [address] [address] [place] Iron and Iron binding capaci ty panelon 05-01-2024 Iron [Mass/Vol] 54 ug/dL Normal 41-186 [facility] Comment on above: Order Comment: Speci men Type: BLOOD SPECIMENOrdering Facility: [facility] Address: [address] [place] [address] Performed By: #### 5 0190-8, 76288-4, 3051-0, 3016-3 ####[facility] [id number] [place] [id number] [place] Iron binding capacity [Mass/Vol] 260 ug/dL Normal 232-386 [facility] Comment on above: Order Comment: Speci men Type: BLOOD SPECIMENOrdering Facility: [facility] Address: [address] [place] [address] Performed By: #### 5 0190-8, 20432-4, 305-0, 3016-3 ####[facility] [id number] [place] [id number] [place] Iron/TIBC [Molar ratio] 20.8 % Normal 15.0-57.0 [facility] Comment on above: Order Comment: Speci men Type: BLOOD SPECIMENOrdering Facility: [facility] Address: [address] [place] [address] Performed By: #### 5 0190-8, 52552-2, 305-0, 3016-3 ####[facility] LABIA [id number] [place] [id number] [place] Magnesium SerPl-mCncon 05-01 Magnesium [Mass/Vol] 2.1 mg/dL Normal 1.7-2.[address] [facility] Comment on above: Order Comment: Speci men Type: BLOOD SPECIMENOrdering Facility: [facility] Address: [address] [place] [address] Performed By: #### 5 0190-8, 81187-6, 3051-0, 3016-3 ####[facility] LABCLIA [id number] [place] [id number] [place] T3Free SerPl-mCncon 05-01-20 24 Free T3 [Mass/Vol] 3.8 pg/mL Normal 2.3-4.1 [facility] Comment on above: Order Comment: Speci men Type: BLOOD SPECIMENOrdering Facility: [facility] Address: [address] [place] [address] Performed By: #### 5 0190-8, 01404-5, 3051-0, 3016-3 ####[facility] LABCLIA [id number] [place] [address] [place] TSH SerPl-aCncon 05-01-2024 TSH Qn 1.590 m[IU]/L Normal 0.270-4.200 [facility] Comment on above: Order Comment: Speci men Type: BLOOD SPECIMENOrdering Facility: [facility] Address: [address] [place] [address] Performed By: #### 5 0190-8, 90314-1, 305-0, 3016-3 ####[facility] LABIA [id number] [place] [address] [place] CBC panel Auto (Bld)on 03-13 Erythrocyte distribution width (RBC) [Ratio] 14.7 % Normal 11.5-15.0 [facility] Comment on above: Order Comment: Speci men Type: BLOOD SPECIMENOrdering Facility: [facility] Address: [address] [place] [address] Performed By: #### 5 8410-2, 4537-7 ####[facility] LABIA [id number] [place] [address] [place] Hematocrit (Bld) [Volume fraction] 35.1 % Low 36.0-46.0 [facility] Comment on above: Order Comment: Speci men Type: BLOOD SPECIMENOrdering Facility: [facility] Address: [address] [place] [address] Performed By: #### 5 8410-2, 4537-7 ####[facility] LABCLIA [id number] [place] [address] [place] Hemoglobin (Bld) [Mass/Vol] 11.1 g/dL Low 11.5-15.5 [facility] Comment on above: Order Comment: Speci men Type: BLOOD SPECIMENOrdering Facility: [facility] Address: [address] [place] [address] Performed By: #### 5 8410-2, 4537-7 ####[facility] LABCLIA [id number] [place] [address] [place] MCH (RBC) [Entitic mass] 28.3 pg Normal 26.0-34.0 [facility] Comment on above: Order Comment: Speci men Type: BLOOD SPECIMENOrdering Facility: [facility] Address: [address] [place] [address] Performed By: #### 5 8410-2, 4537-7 ####[facility] LABCLIA [id number] [place] [address] [place] MCHC (RBC) [Mass/Vol] 31.6 g/dL Normal 30.5-36.0 [facility] Comment on above: Order Comment: Speci men Type: BLOOD SPECIMENOrdering Facility: [facility] Address: [address] [place] [address] Performed By: #### 5 8410-2, 4537-7 ####[facility] LABCLIA [id number] [place] [address] [place] MCV (RBC) [Entitic vol] 89.5 fL Normal 80.0-100.0 [facility] Comment on above: Order Comment: Speci men Type: BLOOD SPECIMENOrdering Facility: [facility] Address: [address] [place] [address] Performed By: #### 5 8410-2, 4537-7 ####[facility] LABIA [id number] [place] [address] [place] Nucleated RBC (Bld) [#/Vol] 10*3/uL Normal <0.01 [facility] Comment on above: Order Comment: Speci men Type: BLOOD SPECIMENOrdering Facility: [facility] Address: [address] [place] [address] Performed By: #### 5 8410-2, 453-7 ####[facility] LABIA [id number] [place] [address] [place] Platelet mean volume (Bld) [Entitic vol] 9.9 fL Normal 9.0-12.7 [facility] Comment on above: Order Comment: Speci men Type: BLOOD SPECIMENOrdering Facility: [facility] Address: [address] [place] [address] Performed By: #### 5 8410-2, 4536-7 ####[facility] LABIA [id number] [place] [address] [place] Platelets (Bld) [#/Vol] 404 10*3/uL High 150-400 [facility] Comment on above: Order Comment: Speci men Type: BLOOD SPECIMENOrdering Facility: [facility] Address: [address] [place] [address] Performed By: #### 5 8410-2, 4536-7 ####[facility] LABIA [id number] [place] [address] [place] RBC (Bld) [#/Vol] 3.92 10*6/uL Normal 3.90-5.20 [facility] Comment on above: Order Comment: Speci men Type: BLOOD SPECIMENOrdering Facility: [facility] Address: [address] [place] [address] Performed By: #### 5 8410-2, 4537-7 ####[facility] LABCLIA [id number] [place] [id number] [place] WBC (Bld) [#/Vol] 9.88 10*3/uL Normal 3.70-11.00 [facility] Comment on above: Order Comment: Speci men Type: BLOOD SPECIMENOrdering Facility: [facility] Address: [address] [place] [address] Performed By: #### 5 8410-2, 4537-7 ####[facility] LABCLIA [id number] [place] [address] [place] CRP SerPl-ncon 03-13-2024 CRP [Mass/Vol] 2.9 mg/dL High <0.9 [facility] Comment on above: Order Comment: Speci men Type: BLOOD SPECIMENOrdering Facility: [facility] Address: [address] [place] [address] Performed By: #### 2 4328, 1988-01 ####[facility] LABCLIA [id number] [place] [address] [place] Comprehensive metabolic 2000 panelon 03-13-2024 Albumin [Mass/Vol] 4.1 g/dL Normal 3.9-4.9 [facility] Comment on above: Order Comment: Speci men Type: BLOOD SPECIMENOrdering Facility: [facility] Address: [address] [place] [address] Performed By: #### 2 4328, 1988-01 ####[facility] LABCLIA [id number] [place] [address] [place] ALP [Catalytic activity/Vol] 124 U/L High 34-123 [facility] Comment on above: Order Comment: Speci men Type: BLOOD SPECIMENOrdering Facility: [facility] Address: [address] [place] [address] Performed By: #### 2 43211-271988-01 ####[facility] LABCLIA [id number] [facility] [address] [address] [place] ALT [Catalytic activity/Vol] 14 U/L Normal 7-38 [facility] Comment on above: Order Comment: Speci men Type: BLOOD SPECIMENOrdering Facility: [facility] Address: [address] [place], [place] [address] Performed By: #### 2 4323-04, 1988-01 ####[facility] LABCLIA [id number] [address] [address] [place] Anion gap [Moles/Vol] 13 mmol/L Normal 8-15 [facility] Comment on above: Order Comment: Speci men Type: BLOOD SPECIMENOrdering Facility: [facility] Address: [address] [place] [address] Performed By: #### 2 4323-04, 1988-01 ####[facility] LABCLIA [id number] [place] [id number] [place] AST [Catalytic activity/Vol] 21 U/L Normal 13-35 [facility] Comment on above: Order Comment: Speci men Type: BLOOD SPECIMENOrdering Facility: [facility] Address: [address] [place], [place] [address] Performed By: #### 2 4323-04, 1988-01 ####[facility] LABCLIA [id number] [place] [id number] [place] Bilirubin [Mass/Vol] 0.2 mg/dL Normal 0.2-1.[address] [facility] Comment on above: Order Comment: Speci men Type: BLOOD SPECIMENOrdering Facility: [facility] Address: [address] [place], [place] [address] Performed By: #### 2 4328, 1988-01 ####[facility] LABCLIA [id number] [place] [id number] [place] Calcium [Mass/Vol] 10.0 mg/dL Normal 8.5-10.2 [facility] Comment on above: Order Comment: Speci men Type: BLOOD SPECIMENOrdering Facility: [facility] Address: [address] [place], [place] [address] Performed By: #### 2 43211-27, 1988-01 ####[facility] LABCLIA [id number] [facility] [place] [address] [place] Chloride [Moles/Vol] 101 mmol/L Normal 98-[address] [facility] Comment on above: Order Comment: Speci men Type: BLOOD SPECIMENOrdering Facility: [facility] Address: [address] [place], [place] [address] Performed By: #### 2 43211-27, 1988-01 ####[facility] LABCLIA [id number] [place] [address] [place] CO2 [Moles/Vol] 25 mmol/L Normal 22-30 [facility] Comment on above: Order Comment: Speci men Type: BLOOD SPECIMENOrdering Facility: [facility] Address: [address] [place], [place] [address] Performed By: #### 2 43211-27, 1988-01 ####[facility] LABCLIA [id number] [place] [address] [place] Creatinine [Mass/Vol] 0.62 mg/dL Normal 0.58-0.96 [facility] Comment on above: Order Comment: Speci men Type: BLOOD SPECIMENOrdering Facility: [facility] Address: [address] [place], [place] [address] Performed By: #### 2 4328, 1988-01 ####[facility] LABCLIA [id number] [place] [id number] [place] Creatinine and Glomerular filtration rate.predicted panel (S/P/Bld) 101 mL/min/1.73m??? Normal >=60 [facility] Comment on above: Order Comment: Speci men Type: BLOOD SPECIMENOrdering Facility: [facility] Address: [address] [place] [address] Result Comment: Leonarda mated Glomerular Filtration Rate (eGFR) is calculated using the 2020 CKD-EPI creatinine equation. This equation utilizes serum creatinine, sex, and age as parameters. The creatinine assay has traceable calibration to isotope dilution-mass spectrometry. Refer to KDIGO guidelines for clinical interpretation. In patients with unstable renal function, e.g. those with acute kidney injury, the eGFR may not accurately reflect actual GFR. Performed By: #### 2 4323-04, 1988-01 ####[facility] LABIA [id number] [place] [id number] [place] Glucose [Mass/Vol] 77 mg/dL Normal 74-99 [facility] Comment on above: Order Comment: Specrosemary men Type: BLOOD SPECIMENOrdering Facility: [facility] Address: [address] [place] [address] Result Comment: The [place] Diabetes Association (ADA) provides guidance for cutoff values for fasting glucose and random glucose. The ADA defines fasting as no caloric intake for at least 8 hours. Fasting plasma glucose results between 100 to 125 mg/dL indicate increased risk for diabetes (prediabetes). Fasting plasma glucose results greater than or equal to 126 mg/dL meet the criteria for diagnosis of diabetes. In the absence of unequivocal hyperglycemia, results should be confirmed by repeat testing. In a patient with classic symptoms of hyperglycemia or hyperglycemic crisis, random plasma glucose results greater than or equal to 200 mg/dL meet the criteria for diagnosis of diabetes. Reference: Standards of Medical Care in Diabetes 2016, [place] [employer]. Diabetes Care. 2016.39(Suppl 1). Performed By: #### 2 4323-04, 1988-01 ####[facility] [id number] [place] [id number] [place] Potassium [Moles/Vol] 4.2 mmol/L Normal 3.7-5.1 [facility] Comment on above: Order Comment: Speci men Type: BLOOD SPECIMENOrdering Facility: [facility] Address: [address] [place] [address] Performed By: #### 2 4323-04, 1988-01 ####[facility] LABCLIA [id number] [place] [address] [place] Protein [Mass/Vol] 7.8 g/dL Normal 6.3-8.0 [facility] Comment on above: Order Comment: Speci men Type: BLOOD SPECIMENOrdering Facility: [facility] Address: [address] [place] [address] Performed By: #### 2 43211-27, 1988-01 ####[facility] LABCLIA [id number] [place] [address] [place] Sodium [Moles/Vol] 139 mmol/L Normal 136-144 [facility] Comment on above: Order Comment: Speci men Type: BLOOD SPECIMENOrdering Facility: [facility] Address: [address] [place] [address] Performed By: #### 2 43211-27, 1988-01 ####[facility] LABIA [id number] [place] [address] [place] Urea nitrogen [Mass/Vol] 14 mg/dL Normal 7-21 [facility] Comment on above: Order Comment: Speci men Type: BLOOD SPECIMENOrdering Facility: [facility] Address: [address] [place] [address] Performed By: #### 2 43211-27, 1988-01 ####[facility] LABCLIA [id number] [place] [id number] [place] ESR Westergren method (Bld) [Velocity]on 03-13-2024 ESR (Bld) [Velocity] 72 mm/h High 0-[address] [facility] Comment on above: Order Comment: Speci men Type: BLOOD SPECIMENOrdering Facility: [facility] Address: [address] [place] [address] Performed By: #### 5 8410-2, 4537-7 ####[facility] LABCLIA [id number] [place] [id number] [place] 02-27-2024 CNPN Telephone (RHEUMN) AURY METZ ([id number]) 1965 F Date Time Provider Department 02/27/24 MINO HARRIS During your visit today, we recorded the following information about you: Enmanuel Neely 02/27/2024 2:08 PM Signed Pt identified by name and date of Pt had a flare in both hands and both knees for awhile and wants to know if provider could prescribe prednisone Pt in a lot pain and swelling is not going down in both knees Pt could be reached at [phone] Mino Harris MD 03/01/2024 12:33 PM Signed Spoke w patient. Having pain all over all joints. She feels she is having a flare of her RA. No fevers no recent cold sx. Discussed that this sounds atypical but no other localizing sx. Will trial prednisone w taper. Check labs To see her PCP if sx worsen She will call with an update. Allergies As of Date: 02/27/2024 Noted Allergy Reaction CEPHALEXIN 05/29/2005 10 - Anaphylaxis 14 - Other: See Comments Comments: Throat swelling. Has tolerated augmentin 850mg as op after this episode ACIPHEX (RABEPRAZOLE SODIUM) 07/23/2007 14 - Other: See Comments Comments: Chest pain BACTRIM (SULFAMETHOXAZOLE-TRIME TH*06/12/2005 11 - Vomiting CARAFATE (SUCRALFATE) 11/10/2012 11 - Vomiting DARVOCET-N 100 (PROPOXYPHENE N-AC*05/29/2005 14 - Other: See Comments Comments: dizzy severe pain in head ERYTHROMYCIN 05/29/2005 11 - Vomiting GLUTEN 11/18/2022 5 - Intolerance IODINATED CONTRAST MEDIA 06/25/2018 12 - Shortness of Breath VANCOMYCIN 07/02/2021 9 - Itching Comments: Scalp itchy Date Reviewed: 12/10/2023 Reviewed by: Jesusita Kohler PA-C - Fully Assessed Reason for Visit: Patient Question [0237] Primary Visit Diagnosis:Rheumatoid arthritis involving multiple sites with positive rheumatoid factor (HCC) [M05.79] Other Visit Diagnosis:Long-term use of immunosuppressant medication [Z79.60] Order(s):COMPLETE BLOOD COUNT [SQCBC] Order #: [id number] FUTURE COMPREHENSIVE METABOLIC PANEL [SQCMP] Order #: [id number] FUTURE SEDIMENTATION RATE, WESTERGREN [SQWSR] Order #: [id number] FUTURE C-REACTIVE PROTEIN [SQCRP] Order #: [id number] FUTURE predniSONE (DELTASONE) 5 mg tabletTake 3 tablets by mouth once daily for 5 days, THEN 2 tablets once daily for 5 days, THEN 1 tablet once daily for 5 days, THEN 1 tablet every other day for 10 days.Disp: 35 tabletRfl: 1 Prescriptions as of 03/01/2024 - predniSONE (DELTASONE) 5 mg tablet Take 3 tablets by mouth once daily for 5 days, THEN 2 tablets once daily for 5 days, THEN 1 tablet once daily for 5 days, THEN 1 tablet every other day for 10 days. - celecoxib (CELEBREX) 100 mg capsule take 1 capsule by mouth every 12 hours - methotrexate sodium 25 mg/mL soln Inject 0.6 mL subcutaneously one time a week. - Syringe with Needle, Disp, 1 mL 25 gauge x 1 syrg Use 1 syringe once a week for MTX SC injection - folic acid 1 mg tablet take 1 tablet by mouth every day - thyroid, pork, (ARMOUR THYROID) 60 mg tablet Take 1 tablet by mouth once daily. - Insulin Syringe-Needle U-100 1 mL 27 gauge x 1/2 syrg 1 Each one time a week. To be used for methotrexate injection - [facility] USE 1 DEVICE ONLY ONCE FOR 1 DOSE - albuterol HFA (PROVENTIL HFA, VENTOLIN HFA) 90 mcg/actuation inhaler Inhale 2 Puffs as instructed every 4 hours as needed for wheezing/shortness of breath. - CPAP Pt with known NIKO confirmed by [facility]AT. AHI normalized with PAP. Has PAP device (Airsense 10 ([id number])). However, not receiving masks through current DME. Requests change. NIKO sx resolved with PAP. Please fit with Dreamwear under nose FFM (not pillows). Needs supplies. Lifetime supplies. Please provide us download in 4 weeks. - Cetirizine (ZYRTEC) 10 mg cap Take 1 capsule by mouth once daily as needed (allergies). Facility-Administered Medications as of 03/01/2024 - lidocaine (PF) 10 mg/mL (1 %) 1-2 mg injection (XYLOCAINE) - lactated ringers iv infusion - lidocaine (PF) 10 mg/mL (1 %) 1-2 mg injection (XYLOCAINE) - lactated ringers iv infusion Meds Comments as of 11/20/2022: Stopped all medications except tylenol and armour thyroid and iron infusions due to surgery 06/20/22 - No Severe DDI - pt is not taking methotrexate 11/20/22 - No Severe DDI - pt is not taking methotrexate Problem List As Of Date 02/27/2024 Noted Resolved Awareness of heartbeats [R00.2] 12/20/2020 BRONCHITIS NOS [J40] 10/27/2006 DIZZINESS AND GIDDINESS [R42] 10/27/2006 Gastroesophageal reflux disease [K21.9] 10/27/2006 Anemia [D64.9] 01/04/2010 Rheumatoid arthritis (HCC) [M06.9] 05/02/2011 09/11/2016 Emotional lability [R45.86] 01/01/2013 1.1 Migraine without aura, not intractable [346*02/08/2015 11/01/2022 Intractable migraine with aura without status m*02/08/2015 11/01/2022 1.5.1 Chronic migraine [346.71] [G43.719] 02/08/2015 11/01/2022 Rheumatoid arthritis of multiple (more content not included)... [facility] SURGICAL PATHOLOGYOrdered By : Natalia Mathew on 09-02-2023 Case Report Surgical Pathology Report Case: [id number] Authorizing Provider: Buck Shepherd MD Collected: 08/29/2023 02:38 PM Ordering Location: Ambulatory Surgery Received: 09/01/2023 12:13 PM Pathologist: Setrakian, Sebouh, MD Specimen: STOMACH BIOPSY, R/O [facility] Work Phone: Diagnosis Comment u4gelJGeQNBvfKKgTUEg NFx dltSfUOMlbIXdD4GmdvjxVC sqAA7vLR5ktIbtkQDpcLSjP IQzHiLpg6wuu408aUSrf1zx MVLsTsP5zAOtERGytVXeG61 7l1cqm7wwuqRvtNH0gCljSM TvmekoQvF2AMatJQAqqyugS Pn1NByvMYZfcEH4HEYcuRLk B7CsRGPnTO9jsbi2SGA0WRy rDQVvUeH0JONxoFVsJHFrqT pxFXyhv983VQQ7NkFgBWItp zSckArkjN2wYaBkGLDZUiMy OJ6ulNles2CkIAuwx0Kcz1O gCY4gn16sHTXyBIPwEMZtpN sfqFZcSI6fZBJzxBAzwcDdQ WODSRW2OBktGWThk7JruHve bnMuXHBhcn0= [facility] Work Phone: FINAL DIAGNOSIS i7ranEMoXRTwxXCkLCQp NFx nelTsXUHbpZYkH1EabjirSU vyID2rHL6pcJzdjKQafUSiY HNdPaLft1yiz813qXSoh4jw DSFlBrO5wAWwKDYvwWOpX06 2q8hxv1tkzxBhhTS6yHcdPT FnkzqmGeE3ONgyRMXllxuoN Be0INkuBQSrkKK3FMRhoMUf E5CbKCIpVE1iqmp8WBL5NDc uHKUjFaJ8LFRncZYpYKQbrN eeIJumr470VCK8NvGdQPHiy fBiqBfhsX9qKfBvIYNGPeOf G7ZdnQZprWprNdivkSE1Sfx wYXIgLSBDaHJvbmljIGFjdG z4QPNfBBQ6vti5fLCrg9u6u CBILiBweWxvcmktbGlrZSBv nzjvqdeneXG0OGBlHYFvw71 eUO96LmtrGPA5 [facility] Work Phone: Gross Description v6rbcAJoWKOvkFULRYW0 MDF aVU3ynPuhnLu9gFouOGWluo Q3mIQnYNgjg9kpOCW0o4vjf nVHPxekMJHnJO8pXXylLVYg ZZ6wQzKzPXJgGwIiFAIgxMX izbGhVpUzJUYsrVCvzCA9GZ KlMH0vytvoAAdwUTfkVQIil fL1FVYnpXZyV1QsKVEhEW5j kuohNKI7QWDELmbqUr6bnXS ibHtcZjFcZmNoYXJzZXQwXG SkyAngKMLmCHd6tK6RKpdgX KI0VZXAPxzgFauhnMzra6Kf dCBcXHNnIFxcaWQgNTEwMDA rPRsePhBCCzLcXqN9KNU3Ey E5ZcFlBJr5YXnkMnQPKBv6R MD9IUXwBSd0TEieRBasyNRy CHTzNQNzTWBkNHomtaE4y3n sBCRjpVDsMKA0LKnmh3oxFC ruDGS1PWDeCsHiKLYiKD7CI rLqHGX1ZFOeDUymGnD3OEp7 ELILWaOzUiXpJKOgCHI7Fyb fRAp1XKq3HJdLErPeNKtdNI r1RrItRRB4RZioHfKqHZYoP dFtFACqPEVfPItpdTRnTU0s dQbkFMPgJP3ZNWIoVLqdZGQ lYjRsLN1fK6CZGWUAOOPETC 4XU9yblQCnF5qgkWFwTS4BE MRdvvQlEFhmuIgipD3tqERs X3ppJzCvQcaivWuqJyQkfPV yWdHqGKbyeWMfcXWhFI0DZA QeVvJjCjWnZGs1IPYwsB8yM y5ycLBbxZ8dKNQhWY73lMKv sNtkEBBbLUYccqFbLdJ6DI7 tBWEhYfFndOizi2YdEFJqU4 TlX3U6sT3bWRJaKAYcBlN2T GAkUzE3JAIoHgFucE4lVZ03 SQvwwUEskQLrhRT3AQIwtK5 pl42wUPQhm2IunVWeBfJulQ TlTM8CBCGhfdCFNxfjl4BlG VZ2EH8wewW1yV5tVTIxfsNc qy1mBTRhaBBQyEK5YSbdxlB zC7jzhfyuVFN9FVUnDHN4Y3 nfYWNGinUeQVKLeMF3DWpqe cTcKL3VOOW3IVz9XXOpvkNI ClxwYXIgDQpGRlMgMTIvMTE rKcGfKiP0SnG2ZJJFCCWrmp HFTnxfNFWdNUHvwIIBv9JvV CANClxlcGljTmVzdERvYzB7 LRManVYcLPZ5QK2xnCmqKEN bS7JiC4BiipK8FUCuzzQWOs svCPYjIV0SDUGxYcLwBMr1 [facility] Work Phone: Performing Lab f9oeyEDfGGFooAOsNhVp MDA rUJCuu4rrLBDilABlPcNlFa NcZnRuYmpcdWMxXGRlZmYwe 9owj172eDCtf8zsZTDcJyN9 nYDzZJIlyORsN247GTQqYQm op2pwl8MsTOKubWFmi4R6OR WKnbhvvYn0oSyxL93kp2Y4D fuqI4eaUMZlWOJtO4XwLN9r KXZdBoi4DIO2EAO9TGQlICA yX6PoBE7qOODtfMAdABc6j5 lzySsaWERiXMX9x4liCKaft tUnSN5ijl7fhUm4s6qsvdHf AHUpWCMrcKEVEWSgP5JypYl bOw3xlSt9nGhnEqgrQVY1Sd c5AW7jkm79zks2kZxmIQHlb ewxDiW1QQijPOEfdqozYTb5 COtrOJMzpOT7BHVnuFGrD1U pLGUsCN9hyhw4RLO1JGhaTL PqEjF3CRAxkNHkYJZnzVoxU Zcon860CEY5AzLaQO4rW7Go n1B3pY2qaPTmWZOwiNBgBaT mKDXoiv8ysMMiZVife0HhRW C0ifX1tBBbvOMmOSOjCD56E nsbu5FcNnary9HeD19baTP5 MSeta5seAA2iLcG2azBlQFv lh2nctQ9vBlQ1VLovNN3gWK 9iGHIzzO0wpunrPCRbIaJql gjoMQAmvBrhbtWkNc6gvXkj OAH9MOqoI0wlzZ5fSpN9COp mR0tpzO9zTYx9QSviaYS8EF JbiX9pCH9puaeeq5riBZndR MxyCRReumA3npR9VQKteUCw H3KqcS4oNSOeCV0brbkcp1h jUSV2RDkaKOVwVJC7LiHgTI Jtd8Mtoxv5NlIpy8QxsFPkE WqdE95ad036HPCrkhNuZ2ny bGFpblxwbGFpblxmMFxmczI 0XHFsXHBsYWluXGYxXGZzMj JcbGFuZzEwMzNcaGljaFxmM EmlJiMyQDXnIJegE5eaQgKc TyGiTjBOpGSrsq2vuRxeDHc ylRSplCUtjTP0nU7wDRZysc Bctb9yUBWxhSQRpPJ3ICvkk bItB3dzlfgfBXEoiAKzLINe oJ46SOPBf5RwwPDmzDgkPgH oKMEyPFBozqOuAWuyX1Joga Nga0NkdAceMKk9xbMVRAM3X DEyMiAgICBDTElBIyAzNkQw VwL2VxHqFRBexguhIPZzrFG aIGdhjRQybpcwSTnogpV5IC BsYWluXGYxXGZzMjJcbGFuZ zEwMzNcaGljaFxmMVxkYmNo ACAhLOpuU4ehJeIhL7QzQTV gHkQvmYHjD6hgBSHxv6KysE 0bcXBnxRnwoI5tYbCoGqNvG umrYQ7rMUMrD4esqAGmAVDn QBWcE9vmXcUwxO9feMslWEc vrjUmVFVzalFihA6dLsRQQE ObuVwrD6Y7nwBfiSTdXAHRG kQuXHBhcn0= [facility] Work Phone: [facility] Work Phone: EGD Study observation Cassie randhawa 08-29-2023 [facility] G[facility] Patient Name: Aury Metz Procedure Date: 08/29/2023 2:14 PM Date of : 1965 Admit Type: Outpatient Age: 58 Room: [place] [address] Gender: Female Note Status: Finalized Attending MD: Buck Shepherd MD Procedure: Upper GI endoscopy Indications: Heartburn Providers: Buck Shepherd MD Patient Profile: This is a 58 year old female. Refer to note in patient chart for documentation of history and physical. Referring Physician: Jesusita Kohler (pa) (Referring MD) Medicines: Monitored Anesthesia Care Complications: No immediate complications. Requesting Provider: Procedure: Pre-Anesthesia Assessment: - Prior to the procedure, a History and Physical was performed, and patient medications and allergies were reviewed. The patient's tolerance of previous anesthesia was also reviewed. The risks and benefits of the procedure and the sedation options and risks were discussed with the patient. All questions were answered, and informed consent was obtained. Prior Anticoagulants: The patient has taken no anticoagulant or antiplatelet agents. ASA Grade Assessment: III - A patient with severe systemic disease. After reviewing the risks and benefits, the patient was deemed in satisfactory condition to undergo the procedure. After obtaining informed consent, the endoscope was passed under direct vision. Throughout the procedure, the patient's blood pressure, pulse, and oxygen saturations were monitored continuously. The Endoscope was introduced through the mouth, and advanced to the second part of duodenum. I was present and participated during the entire procedure, including non-gonzalez portions, and during the administration and monitoring of Moderate Sedation. The upper GI endoscopy was accomplished without difficulty. The patient tolerated the procedure well. Moderate Sedation: MAC anesthesia was administered by the anesthesia team. Findings: The Z-line was regular and was found 36 cm from the incisors. The examined esophagus was normal. Localized mild inflammation characterized by erythema and linear erosions was found in the gastric antrum. Biopsies were taken with a cold forceps for Helicobacter pylori testing. Verification of patient identification for the specimen was done. Estimated blood loss was minimal. The examined duodenum was normal. Impression: - Z-line regular, 36 cm from the incisors. - Normal esophagus. - Gastritis. Biopsied. - Normal examined duodenum. Recommendation: - Discharge patient to home. - Resume previous diet. - Continue present medications. - Await pathology results. - Patient has a contact number available for emergencies. The signs and symptoms of potential delayed complications were discussed with the patient. Return to normal activities tomorrow. Written discharge instructions were provided to the patient. Procedure Code(s): --- Professional --- 71013, Esophagogastroduodenosc opy, flexible, transoral; with biopsy, single or multiple CPT copyright 2020 [employer]. All rights reserved. The codes documented in this report are preliminary and upon assembling machine operator review may be revised to meet current compliance requirements. Attending Participation: I personally performed the entire procedure. Scope In: 2:37:13 PM Scope Out: 2:41:59 PM MD Buck Santos MD 08/29/2023 2:44:12 PM This report has been signed electronically by Buck Shepherd MD Number of Addenda: 0 Note Initiated On: 08/29/2023 2:14 PM Estimated Blood Loss: Estimated blood loss: none. [facility] Radiology Study observation (narrative) [facility] XR KNEE POST OP 3V AP/LAT/ME RCHANT LEFTon 04-16-2023 [facility] SURGICAL PATHOLOGYOrdered By : Brendan Neal on 03-20-2023 Case Report Surgical Pathology Report Case: [id number] Authorizing Provider: Tee Batres MD Collected: 03/18/2023 08:57 AM Ordering Location: Ambulatory Surgery Received: 03/18/2023 08:48 PM Pathologist: Brendan Neal MD Specimens: A) - ASCENDING COLON POLYP, removed 2, retrieved 1 B) - RECTAL POLYP [facility] Work Phone: FINAL DIAGNOSIS b5ssiKLtHTNtxLWmOHFq NVx vtaHmBOCegVUyS9IzzdpnNW siGZ3hVZ2lrBdnuYRhfXGoB UWgNiXjz1bdc616iDWjv3ga FBMMkcxauVc9gAqxB12ru5N 7YfbyL05slOHhEIF6DWYwUX WhhEDyYLNyBGM7IUGmiJLoH 1ryJMZrYE5nccqsROidFQty RFAnpMW4SYXgrRVzC3TyPHK oMTnmHOVzmym4MqRtVr0hwI VyeTcyMFxwYXJkXHBsYWluX AKhSbYaXW2eIZKuW7YcPNrv IaCkv4axsoIwy0d3gAiaGxs nyCK0VglrULQbOFDBzWU7gN LiTJCuWC1wkLDdDVPwmiwlY NYaCo7wTCHzB8BqfKJrq1f7 xUbkBfoyrVJ2UwcyYNRzUVN PtMTmphZaWAN1eDDcfQ4kxQ AuXHBhcn0= [facility] Work Phone: Gross Description o8ffdPSnGLUwhRXNHXXh MDR qEB6msYdetBh9eBecUDSmfz Z8pQCnEBcmb8quGAK0v0lfq iANClxkZWZmMVxwYXBlcncx VlL2ICvbGJDaanmgNBy0DOb bAESeeTE8LIJukAZbC7ShDI RpAY5dihj2BEU0FVhpUXXpN xJ4OWFkTgFeLeriARm5XCYz ifW4Wkp2SZBcKNWcaISxi5D 4PTgfyezzEXOezRQyI703DA gqv5IgdBXtUVjzaIMrYKRIK vivTcbfjIcue7RmkGVdHFel JUDwSNXeKAoxoxkgLBy7BXN eIKkkkSUkRX9cfCsrCsuxlV rcu5DjeDVkAQnuGSIuCAJgI ChzFYUeSU3LUeNwUVN8RrLg Iin1BrW7BZk6YBXQPsOcFpB kWdQfKES4EZdeGAb1YOv0TA zYObThXANhHoE8CyVjEBT1O Zl5UYSwOHJjYdKkTWRtGELl RBdmGClacPGsMP4obFtmqTR jgfOUVkIGB2CVNsSUZbqnY4 4OE56dMX6FLZAnrHZtDD2UX GExrMEBLGT9KZ0vIHLUDvan fQFyURRlyVltIQxdxH7mVJ8 BMYw5lbVqQJYpRrYxXvClAD e6DILvzM6sIs7wfQJjaH6aq XVhl82jWOKoPQKjFM7oQOJy omlxs64xkYK8xZEtmRCgdRI tb6MvrW3dTSFpBiB4XGPrFx W7HUGkIALzuS0hXF03KWahi OFifUTkjBL5BXNrdT4as26v AXBoc7VrzUGtPb9QTYYrgEG RRDF8DB2mROc2PTwnARYjU1 LeK2OrsePjmTEeNKElqlYtv 6yzHOU0ODCqqEXisSLrGqDy XlekDWQ8DXBpPPstND2Cb0f vYUIteLHcTDQ4EVyekZRySA ApFKHpHAepZhXxA5SGBYJyE dMfOpMcKIAdNUv5DCp9WQ4M AhDfLJSnArX4DezgMNMfVGc 6JRkcXE1FKLYpIsFwQjX1VT V4VGW5FHv5ZZgunJUgIXfvZ iBBcmlhbCBcXGZsIFxcbmN9 XHBsYWluXGZzMTZccGxhaW4 rAj5nQhOPCXDVMXHXERjHSS BhciANClxlcGljTmVzdERvY zEgDQpcbHRycGFyXGxpbjBc cmluMCANClxsdHJjaFxmczI zLKXtJ5ArpuFxMJskQRJfkq 2ilAwnHJteGX0dBCVxiYRkV NHmYzT4RK2xAEBmSdTfrDxe h2ViWS6uHSE9unjmDlLgKgO ayJZdInBrbNXkStSiX44zWX FrfNZdxPces4MgvKd9cUOcG XrkGH9mKBAqGJUcHZI6FU7y XHBhciANClxwYXIgDQpTUyB GqH5hNRO3PYSpNXYwMCKqVe B7DHYLOVTeonRYLliqUPBuJ QpccGFyZFxsdHJwYXJcdHg0 SdRjTY1PX2Uam4CeFBwdhPa pNYUkq95ogREkQi7ahWGaLF C5MTSpUAWhhGDwLPZTjGypw HWxLHf5ZBJhBLVjoGmdUBW7 YX6eUOKeTNEcoSMyYUbmA7g xHIBwSFZhbCQkKU8YCUWayt SszVZliDLrBF4ESVTkwESLQ IA5EA3qJYz6LVosJDNeU4Kz E1XaboWgcARxPEXzneJeu9b ySSU7GMAnlHOsoSQbKxGeOt diOLY0JHDiRGouHV1ZFPXsH XZ6LXhssW90uYGvGA3JCIZz DGhyTXXeJIAvkwW3ZRKutTE zWFY3WR5doLprdHSfsfmfty C0FX3CcK== [facility] Work Phone: Performing Lab m4fhsLSpRPTbsBIkAlGi MDA fWWDpm1pgJIFtvDBqGdBbPg NcZnRuYmpcdWMxXGRlZmYwe 9cwr989pLJwm4huYIXfVlX0 zZUbJVFjgVXiW742TDDeEAv px8tuv5ItKCJniNXha4H4GD EYiytiqDv3uAhcZ40gi5D8Z luvY7rgMAQaBWXgO2RyHL6u ESEhZny7AUS6YSK1YPCeIPU vL0OsBT3mDBWnsKTbUGx6x7 jayRxrUVOvWXL9m4hvOGbcp qDmNA9iqj3kpZr0s5uhbxWj NVCvYWCcmHXQQXRsD8YrzWc dVn8mqFl3mRypMwpfDXA4Wg h2FH4ard10eaa0zDjqKOEyf igzBcO7EAslTLPbwamaOLy5 HYjmREXsbDP6SOSgoTHtC2Z tDWabMZ0pisu2HIL5VVdlAG NvPzA0FLVqpUTnDHLvsFeiC Yanc820HIN4MmGxAE7eN7Qn s6X8tC0ejIXqBLUxsOZqZtW dCFPjcg6wwBMyITatp8ZxGF F2uiG1oBCueRJuNLClHR21A zewv5XxEvxir5KvP21mlBL9 QJwma6mmNK0bBzU9wvZoDHo vu5hmtP8eAxG1ZRnyBZ8pWL 9vXUChrV4pprktOLHsMxUdb wdoNTWesTzxmgQhQb9tmIne FUP4WIygU1rhsP2nRlZ9VMe fK6abpC3tZMr7LGnvlOZ1VA CbqL2yKM8jumwph5iaQIkvA CgtYLPanmV0xuEmNNVkpYYs V6NqdJ0mPCIcFP1yarzpo9n ePVH5RFsiZOYhPPG9HjSpJM Xvv2Pludn8JiJoc5SmeLUnV JsvW71zq718PNVfmcJyJ6ft bGFpblxwbGFpblxmMFxmczI 0XHFsXHBsYWluXGYxXGZzMj JcbGFuZzEwMzNcaGljaFxmM BxnTvLtROXlQDglL7ioGyNl KjXnNtIFsOEskr3iaDyoVBi bsBMtaNTajHA5zH7dOIJeye Pgzq4eXPIozMGJtMN4ULfyx xTrP5olehbaYBG5ABViRYZ0 Q4xzXAIYiaWwKYQtDOFmyJK pRHGNMPO8URM2IZTeOYRWPC HeNSW3OYX1OUQkTCCaiKUjK HBhclxwYXJkXHBsYWluXGYw NXHyNvPpoThvwG6iAcKwFbV mQudwMQ5oJSZgI7kgnQBaQQ XhPHRwW2ctDwGqzW2joTlvQ VxjZjJcZnMyMlxsdHJjaCBM CBMkeaX6e3P3JAhoaHKamoc mMVxmczIyXGxhbmcxMDMzXG xvM3xfKnQeWLJaxYxtBRyqc 8OpSTGcUSMiPdHtXNmxVRY4 m8G2JMhiaNIeepYGBtNEMX2 yxBLzvgexUT8QMexcIBN8 [facility] Work Phone: [facility] Work Phone: Flexible sigmoidoscopy study on 03-18-2023 [facility] Gastrointestinal Endoscopy Patient Name: Aury Metz Procedure Date: 03/18/2023 8:42 AM Date of : 1965 Admit Type: Outpatient Age: 58 Room: [place] [address] Gender: Female Note Status: Finalized Attending MD: Tee Batres MD Procedure: Colonoscopy Indications: Lower abdominal pain Providers: Tee Batres MD Patient Profile: Last Colonoscopy: none. The patient's first colonoscopy is today. Referring Physician: Jesusita Kohler (pa) (Referring MD) Medicines: Monitored Anesthesia Care Complications: No immediate complications. Requesting Provider: Procedure: Pre-Anesthesia Assessment: - Prior to the procedure, a History and Physical was performed, and patient medications and allergies were reviewed. The patient's tolerance of previous anesthesia was also reviewed. The risks and benefits of the procedure and the sedation options and risks were discussed with the patient. All questions were answered, and informed consent was obtained. Prior Anticoagulants: The patient has taken no anticoagulant or antiplatelet agents. ASA Grade Assessment: II - A patient with mild systemic disease. After reviewing the risks and benefits, the patient was deemed in satisfactory condition to undergo the procedure. After I obtained informed consent, the scope was passed under direct vision. Throughout the procedure, the patient's blood pressure, pulse, and oxygen saturations were monitored continuously. The Colonoscope was introduced through the anus and advanced to the cecum, identified by appendiceal orifice and ileocecal valve. I was present and participated during the entire procedure, including non-gonzalez portions, and during the administration and monitoring of Moderate Sedation. The colonoscopy was performed without difficulty. The patient tolerated the procedure well. The quality of the bowel preparation was good. The ileocecal valve, appendiceal orifice, and rectum were photographed. Moderate Sedation: MAC anesthesia was administered by the anesthesia team. Findings: Two sessile polyps were found in the ascending colon. The polyps were 4 to 6 mm in size. These polyps were removed with a hot snare. Resection was complete, but the polyp tissue was only partially retrieved. Verification of patient identification for the specimen was done. Estimated blood loss was minimal. A 7 mm polyp was found in the distal rectum. The polyp was sessile. The polyp was removed with a hot snare. Resection and retrieval were complete. Verification of patient identification for the specimen was done. Estimated blood loss was minimal. External and internal hemorrhoids were found during retroflexion. The hemorrhoids were medium-sized. Impression: - Two 4 to 6 mm polyps in the ascending colon, removed with a hot snare. Complete resection. Partial retrieval. - One 7 mm polyp in the distal rectum, removed with a hot snare. Resected and retrieved. - External and internal hemorrhoids. Recommendation: - Patient has a contact number available for emergencies. The signs and symptoms of potential delayed complications were discussed with the patient. Return to normal activities tomorrow. Written discharge instructions were provided to the patient. - High fiber diet. - Continue present medications. - Await pathology results. - Repeat colonoscopy in 5 years for surveillance. - Return to GI clinic as previously scheduled. - The patient is not currently taking anticoagulant or antiplatelet agents. Procedure Code(s): --- Professional --- (more content not included)... [facility] Radiology Study observation (narrative) [facility] VITAMIN D 25 HYDROXYon 03-17 25-hydroxyvitamin D3 [Mass/Vol] 48.4 ng/mL 31.0 - 80.0 ng/mL [facility] C-REACTIVE PROTEIN (CRP)on 0 03-16-2023 CRP [Mass/Vol] 4.7 mg/dL High <0.9 mg/dL [facility] Comprehensive metabolic 2000 panelon 03-16-2023 Albumin [Mass/Vol] 4.3 g/dL 3.9 - 4.9 g/dL [facility] ALP [Catalytic activity/Vol] 119 U/L 34 - 123 U/L [facility] ALT [Catalytic activity/Vol] 20 U/L 7 - 38 U/L [facility] Anion gap [Moles/Vol] 12 mmol/L 9 - 18 mmol/L [facility] AST [Catalytic activity/Vol] 27 U/L 13 - 35 U/L [facility] Bilirubin [Mass/Vol] 0.3 mg/dL 0.2 - 1 .3 mg/dL [facility] Calcium [Mass/Vol] 10.1 mg/dL 8.5 - 10. 2 mg/dL [facility] Chloride [Moles/Vol] 102 mmol/L 97 - 10 5 mmol/L [facility] CO2 [Moles/Vol] 25 mmol/L 22 - 30 mmol/L [facility] Creatinine [Mass/Vol] 0.58 mg/dL 0.58 - 0.96 mg/dL [facility] Estimated Glomerular Filtration Rate 104 mL/min/1.73m >=60 mL/min/1.73m [facility] Glucose [Mass/Vol] 85 mg/dL 74 - 99 mg/dL [facility] Potassium [Moles/Vol] 4.5 mmol/L 3.7 - 5.1 mmol/L [facility] Protein [Mass/Vol] 8.0 g/dL 6.3 - 8.0 g/dL [facility] Sodium [Moles/Vol] 139 mmol/L 136 - 144 mmol/L [facility] Urea nitrogen [Mass/Vol] 11 mg/dL 7 - 21 mg/dL [facility] FERRITIN [facility] 03-16-2023 Ferritin [Mass/Vol] 422.0 ng/mL High 14.7 - 2 05.1 ng/mL [facility] FOLATE SERUMon 03-16-2023 Folate [Mass/Vol] 17.0 ng/mL >4.7 ng/mL [facility] Iron and Iron binding capaci ty panelon 03-16-2023 Iron [Mass/Vol] 32 ug/dL Low 41 - 186 ug/dL [facility] Iron binding capacity [Mass/Vol] 229 ug/dL Low 232 - 386 ug/dL [facility] Iron/TIBC [Molar ratio] 14.0 % Low 15.0 - 57.0 % [facility] MAGNESIUM [facility] 03-16-2023 Magnesium [Mass/Vol] 2.2 mg/dL 1.7 - 2 .3 mg/dL [facility] T3 FREE [facility] 03-16-2023 Free T3 [Mass/Vol] 4.9 pg/mL High 2.3 - 4.1 pg/mL [facility] T4 FREE/FREE THYROXon 2022 Free T4 [Mass/Vol] 1.0 ng/dL 0.9 - 1.7 ng/dL [facility] TSH [facility] 03-16-2023 TSH Qn 1.310 m[IU]/L 0.270 - 4.200 mIU/L [facility] CBC W Auto Differential pane l (Bld)on 03-15-2023 Basophils (Bld) [#/Vol] 0.04 10*3/uL <0.11 k/uL [facility] Basophils/100 WBC (Bld) 0.5 % [facility] Differential cell count method Nom (Bld) Auto [facility] Eosinophils (Bld) [#/Vol] 0.16 10*3/uL <0.46 k/uL [facility] Eosinophils/100 WBC (Bld) 1.9 % [facility] Erythrocyte distribution width (RBC) [Ratio] 14.5 % 11.5 - 15.0 % [facility] Hematocrit (Bld) [Volume fraction] 37.3 % 36.0 - 46.0 % [facility] Hemoglobin (Bld) [Mass/Vol] 12.1 g/dL 11.5 - 15.5 g/dL [facility] Immature granulocytes (Bld) [#/Vol] <0.10 k/uL [facility] Immature granulocytes/100 WBC (Bld) 0.2 % [facility] Lymphocytes (Bld) [#/Vol] 2.42 10*3/uL 1.00 - 4.00 k/uL [facility] Lymphocytes/100 WBC (Bld) 28.3 % [facility] MCH (RBC) [Entitic mass] 30.1 pg 26.0 - 34.0 pg [facility] MCHC (RBC) [Mass/Vol] 32.4 g/dL 30.5 - 36.0 g/dL [facility] MCV (RBC) [Entitic vol] 92.8 fL 80.0 - 100.0 fL [facility] Monocytes (Bld) [#/Vol] 0.78 10*3/uL <0.87 k/uL [facility] Monocytes/100 WBC (Bld) 9.1 % [facility] Neutrophils (Bld) [#/Vol] 5.14 10*3/uL 1.45 - 7.50 k/uL [facility] Neutrophils/100 WBC (Bld) 60.0 % [facility] Nucleated RBC (Bld) [#/Vol] <0.01 k/uL [facility] Nucleated RBC/100 WBC (Bld) [Ratio] 0.0 /100 WBC [facility] Platelet mean volume (Bld) [Entitic vol] 10.3 fL 9.0 - 12.7 fL [facility] Platelets (Bld) [#/Vol] 365 10*3/uL 150 - 400 k/uL [facility] RBC (Bld) [#/Vol] 4.02 10*6/uL 3.90 - 5.2 0 m/uL [facility] WBC (Bld) [#/Vol] 8.56 10*3/uL 3.70 - 11. 00 k/uL [facility] ESR Westergren method (Bld) [Velocity]on 03-15-2023 ESR (Bld) [Velocity] 68 mm/h High 0 - 20 mm/hr Cl [facility] XR Knee AP and Lateral and M erchantson 12-16-2022 IMPRESSION: NEW LEFT TOTAL KNEE REPLACEMENT WITH SATISFACTORY POSTOPERATIVE APPEARANCE Data Collector: [facility] Transcribe Date/Time: Dec 16 2022 6:18P Dictated by : VELVET AMOR MD This examination was interpreted and the report reviewed and electronically signed by: VELVET AMOR MD on Dec 16 2022 6:20PM [facility] * * *Final Report* * * DATE OF EXAM: Dec 12 2022 8:19AM WOX 5208 - XR KNEE 3V AP/LAT/MERCHANT LT / PROCEDURE REASON: Primary osteoarthritis of left knee * * * * Physician Interpretation * * * * EXAM: LEFT KNEE: 3 VIEWS HISTORY: 57-year-old female with primary arthritis status post knee replacement TECHNIQUE: AP, lateral , merchant COMPARISON: 05/06/2022 RESULT: Status post left total knee arthroplasty embedded in methacrylate with patella resurfacing in near anatomic alignment. No evidence of loosening, fracture or dislocation. No joint effusion. A left total knee prosthesis is new compared to the previous exam. A right total knee prosthesis is present without evidence of loosening on the AP view.. DIVISION OF RADIOLOGY Provider, [facility] - 12/16/2022 * * *Final Report* * * DATE OF EXAM: Dec 12 2022 8:19AM WOX 5208 - XR KNEE 3V AP/LAT/MERCHANT LT / PROCEDURE REASON: Primary osteoarthritis of left knee * * * * Physician Interpretation * * * * EXAM: LEFT KNEE: 3 VIEWS HISTORY: 57-year-old female with primary arthritis status post knee replacement TECHNIQUE: AP, lateral , merchant COMPARISON: 05/06/2022 RESULT: Status post left total knee arthroplasty embedded in methacrylate with patella resurfacing in near anatomic alignment. No evidence of loosening, fracture or dislocation. No joint effusion. A left total knee prosthesis is new compared to the previous exam. A right total knee prosthesis is present without evidence of loosening on the AP view.. IMPRESSION IMPRESSION: NEW LEFT TOTAL KNEE REPLACEMENT WITH SATISFACTORY POSTOPERATIVE APPEARANCE Data Collector: VIVIANA Transcribe Date/Time: Dec 16 2022 6:18P Dictated by : VELVET AMOR MD This examination was interpreted and the report reviewed and electronically signed by: VELVET AMOR MD on Dec 16 2022 6:20PM EST [facility] XR Knee AP and Lateral and M erchantsOrdered By: [facility] Provider on 12-16-2022 [facility] XR Knee AP and Lateral and M erchantson 12-12-2022 Radiology Study observation (narrative) [facility] Basic metabolic 2000 panelon 11-19-2022 Anion gap [Moles/Vol] 9 mmol/L Normal 9-18 [facility] Comment on above: Order Comment: Speci men Type: BLOOD SPECIMENOrdering Facility: [facility] Address: [address] [place] [address] Performed By: #### 2 4321-2 ####DRUZE LABORATORYCLIA [id number] [place] [address] [place] Calcium [Mass/Vol] 9.1 mg/dL Normal 8.5-10.2 [facility] Comment on above: Order Comment: Speci men Type: BLOOD SPECIMENOrdering Facility: [facility] Address: [address] [place] [address] Performed By: #### 2 4321-2 ####DRUZE LABORATORYCLIA [id number] [place] [id number] [place] Chloride [Moles/Vol] 106 mmol/L High 97-105 [facility] Comment on above: Order Comment: Speci men Type: BLOOD SPECIMENOrdering Facility: [facility] Address: [address] [place] [address] Performed By: #### 2 4321-2 ####DRUZE LABORATORYCLIA [id number] [place] [address] [place] CO2 [Moles/Vol] 26 mmol/L Normal 22-30 [facility] Comment on above: Order Comment: Speci men Type: BLOOD SPECIMENOrdering Facility: [facility] Address: [address] [place] [address] Performed By: #### 2 4321-2 ####DRUZE LABORATORYCLIA [id number] [address] [place] Creatinine [Mass/Vol] 0.50 mg/dL Low 0.58-0.96 [facility] Comment on above: Order Comment: Speci men Type: BLOOD SPECIMENOrdering Facility: [facility] Address: [address] [place] [address] Performed By: #### 2 4321-2 ####DRUZE LABORATORYCLIA [id number] [address] STATES [facility] ESTIMATED GLOMERULAR FILTRATION RATE 108 mL/min/1.73m??? Normal >=60 [facility] Comment on above: Order Comment: Speci men Type: BLOOD SPECIMENOrdering Facility: [facility] Address: [address] [place] [address] Result Comment: Leonarda mated Glomerular Filtration Rate (eGFR) is calculated using the 2020 CKD-EPI creatinine equation. This equation utilizes serum creatinine, sex, and age as parameters. The creatinine assay has traceable calibration to isotope dilution-mass spectrometry. Refer to KDIGO guidelines for clinical interpretation. In patients with unstable renal function, e.g. those with acute kidney injury, the eGFR may not accurately reflect actual GFR. Performed By: #### 2 4321-2 ####DRUZE LABORATORYCLIA [id number] [place] [id number] [place] Glucose [Mass/Vol] 118 mg/dL High 74-99 [facility] Comment on above: Order Comment: Speci men Type: BLOOD SPECIMENOrdering Facility: [facility] Address: [address] [place] [address] Result Comment: The [place] Diabetes [employer] (ADA) provides guidance for cutoff values for fasting glucose and random glucose. The ADA defines fasting as no caloric intake for at least 8 hours. Fasting plasma glucose results between 100 to 125 mg/dL indicate increased risk for diabetes (prediabetes). Fasting plasma glucose results greater than or equal to 126 mg/dL meet the criteria for diagnosis of diabetes. In the absence of unequivocal hyperglycemia, results should be confirmed by repeat testing. In a patient with classic symptoms of hyperglycemia or hyperglycemic crisis, random plasma glucose results greater than or equal to 200 mg/dL meet the criteria for diagnosis of diabetes. Reference: Standards of Medical Care in Diabetes 2016, [place] [employer]. Diabetes Care. 2016.39(Suppl 1). Performed By: #### 2 4321-2 ####DRUZE LABORATORYCLIA [id number] [place] [address] [place] Potassium [Moles/Vol] 4.1 mmol/L Normal 3.7-5.1 [facility] Comment on above: Order Comment: Speci men Type: BLOOD SPECIMENOrdering Facility: [facility] Address: [address] Performed By: #### 2 4321-2 ####DRUZE LABORATORYCLIA [id number] [place] [address] [place] Sodium [Moles/Vol] 141 mmol/L Normal 136-144 [facility] Comment on above: Order Comment: Speci men Type: BLOOD SPECIMENOrdering Facility: [facility] Address: [address] Performed By: #### 2 4321-2 ####DRUZE LABORATORYCLIA [id number] [place] [id number] [place] Urea nitrogen [Mass/Vol] 12 mg/dL Normal 7-21 [facility] Comment on above: Order Comment: Speci men Type: BLOOD SPECIMENOrdering Facility: [facility] Address: [address] Performed By: #### 2 4321-2 ####DRUZE LABORATORYCLIA [id number] [address] [place], [place] [id number] [facility] [place] CASE MANAGEMon 11-19-2022 CASE MANAGEM HNO ID: [id number] Author: Genoveva Colin RN Service: Care Management Author Type: Registered Nurse Type: Care Mgt Progress Note Filed: 11/19/2022 10:06 AM Note Text: CARE MANAGEMENT DISCHARGE NOTE SERVICE DATE: 11/19/2022 SERVICE TIME: 1000 LOS: 0 days Admission Date: 11/18/2022 DISCHARGE ARRANGEMENT (list agency and phone number) Discharge Arrangement: Home with Home Health Provider Name AND Phone: See Below CAREGIVER ASSESSMENT: Caregiver is ready, willing and able to meet the patient's needs as recommended by the inter-professional team:: Yes Patient's transition needs and plan for meeting these needs: To go home today with c HANDOFF COMMUNICATION: Handoff to: Primary Care Physician TRANSPORTATION ARRANGEMENTS: Transportation Arrangements: Car ADDITIONAL CONTACT RESOURCES: Summary of Care Discharge Information Row Name Admission (Current) from 11/18/[address] [facility] Start of Care -- within 24-48hrs Patient to discharge home with her providing transportation. She has all DME for home. Prescriptions sent to [facility] for bedside delivery. CC to provide home care. Summary of care sent to care team, PCP, C. SIGNATURE: Genoveva Colin RN PATIENT NAME: Aury Metz DATE: November 19, 2022 TIME: 10:03 AM PAGER/CONTACT #: [phone] Normal [facility] CBC panel Auto (Bld)on 11-19 Erythrocyte distribution width (RBC) [Ratio] 15.6 % High 11.5-15.0 [facility] Comment on above: Order Comment: Speci men Type: BLOOD SPECIMENOrdering Facility: [facility] Address: [address] [place] [id number] Performed By: #### 5 8410-2 ####DRUZE LABORATORYCLIA [id number] [place] [id number] [place] Hematocrit (Bld) [Volume fraction] 30.6 % Low 36.0-46.0 [facility] Comment on above: Order Comment: Speci men Type: BLOOD SPECIMENOrdering Facility: [facility] Address: [address] [place] [address] Performed By: #### 5 8410-2 ####DRUZE LABORATORYCLIA [id number] [address] [place] [address] [place] Hemoglobin (Bld) [Mass/Vol] 10.0 g/dL Low 11.5-15.5 [facility] Comment on above: Order Comment: Speci men Type: BLOOD SPECIMENOrdering Facility: [facility] Address: [address] [place] [address] Performed By: #### 5 8410-2 ####DRUZE LABORATORYCLIA [id number] [address] [place] [address] [place] MCH (RBC) [Entitic mass] 30.9 pg Normal 26.0-34.0 [facility] Comment on above: Order Comment: Speci men Type: BLOOD SPECIMENOrdering Facility: [facility] Address: [address] [place] [address] Performed By: #### 5 8410-2 ####DRUZE LABORATORYCLIA [id number] [address] [place] [address] [place] MCHC (RBC) [Mass/Vol] 32.7 g/dL Normal 30.5-36.0 [facility] Comment on above: Order Comment: Speci men Type: BLOOD SPECIMENOrdering Facility: [facility] Address: [address] [place] [address] Performed By: #### 5 8410-2 ####DRUZE LABORATORYCLIA [id number] [address] [place] MCV (RBC) [Entitic vol] 94.4 fL Normal 80.0-100.0 [facility] Comment on above: Order Comment: Speci men Type: BLOOD SPECIMENOrdering Facility: [facility] Address: [address] Performed By: #### 5 8410-2 ####DRUZE LABORATORYCLIA [id number] [address] Nucleated RBC (Bld) [#/Vol] 10*3/uL Normal <0.01 [facility] Comment on above: Order Comment: Speci men Type: BLOOD SPECIMENOrdering Facility: [facility] Address: [address] Performed By: #### 5 8410-2 ####DRUZE LABORATORYCLIA [id number] [place] [id number] [place] Platelet mean volume (Bld) [Entitic vol] 9.6 fL Normal 9.0-12.7 [facility] Comment on above: Order Comment: Speci men Type: BLOOD SPECIMENOrdering Facility: [facility] Address: [address] Performed By: #### 5 8410-2 ####DRUZE LABORATORYCLIA [id number] [address] [place] Platelets (Bld) [#/Vol] 224 10*3/uL Normal 150-400 [facility] Comment on above: Order Comment: Speci men Type: BLOOD SPECIMENOrdering Facility: [facility] Address: [address] Performed By: #### 5 8410-2 ####DRUZE LABORATORYCLIA [id number] [place] [id number] [place] RBC (Bld) [#/Vol] 3.24 10*6/uL Low 3.90-5.20 [facility] Comment on above: Order Comment: Speci men Type: BLOOD SPECIMENOrdering Facility: [facility] Address: [address] Performed By: #### 5 8410-2 ####DRUZE LABORATORYCLIA [id number] [place] [address] [place] WBC (Bld) [#/Vol] 11.49 10*3/uL High 3.70-11.00 [facility] Comment on above: Order Comment: Speci men Type: BLOOD SPECIMENOrdering Facility: [facility] Address: [address] [place] [address] Performed By: #### 5 8410-2 ####DRUZE LABORATORYCLIA [id number] [address] CNDSon 11-19-2022 CNDS HNO ID: [id number] Author: Ellen Allen APRN.LINOTYPE MACHINIST APPRENTICE Service: Hospital Medicine Author Type: Nurse Practitioner Type: Discharge Summary Filed: 11/19/2022 10:00 AM Note Text: Attestation signed by Anival Ambriz MD at 11/19/2022 2:36 PM I agree with the above summary as outlined above. Anival Ambriz MD ORTHOPEDIC SURGERY DISCHARGE SUMMARY ADMISSION DATE: 11/18/2022 DISCHARGE DATE: 11/19/22 Attending Physician: Anival Ambriz MD Reason for Hospitalization: Left TKA Admitting Diagnosis: Knee Advanced Degenerative Joint Disease Discharge Diagnosis: Knee Advanced Degenerative Joint Disease Additional Diagnoses: ACTIVE PROBLEM LIST Awareness of Heartbeats Gastroesophageal Reflux Disease Anemia Emotional Lability Rheumatoid Arthritis of Multiple Sites Without Organ Or System Involvement With Positive Rheumatoid Factor (Hcc) Drug Allergy Allergy to Sulfa Drugs Rash and Nonspecific Skin Eruption Hypothyroidism Moderate Obstructive Sleep Apnea Acute Pain of Both Knees Knee Joint Stiffness, Bilateral Difficulty Walking Hip Stiffness, Unspecified Laterality Right Lumbar Radiculitis Lumbar Spondylosis Chronic Right-Sided Low Back Pain With Right-Sided Sciatica Rheumatoid Arthritis Involving Both Knees With Positive Rheumatoid Factor (Hcc) Exercise-Induced Asthma Status Post Knee Replacement Raynaud Phenomenon Calcific Tendinitis of Right Shoulder Cervical Radiculopathy Disorder of Acromioclavicular Joint Personal History of Rheumatoid Arthritis History of Hypothyroidism Fibromyalgia 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 Mindy (Iron Deficiency Anemia) Status Post Total Replacement of Right Hip Reaction to Contrast Media Primary Osteoarthritis of Left Knee Status Post Total Left Knee Replacement Surgeries During Hospitalization: Procedure(s) (LRB): ARTHROPLASTY REPLACE JOINT TOTAL KNEE (Left) Procedures During Hospitalization: spinal Consultations: Physical Therapy Case Management Hospital Course: The patient is a 57 year old female who has been followed by Dr. Anival Ambriz MD, MD in clinic for left knee pain. It was determined she would benefit from surgery. The procedure, its risks, benefits, and potential complications were discussed in detail with the patient prior to surgery. Understanding of all topics was conveyed by the patient, and consent was given for surgery. The patient was electively admitted to the [facility]. Surgery was scheduled and on 11/18/2022 she underwent a Procedure(s) (LRB): ARTHROPLASTY REPLACE JOINT TOTAL KNEE (Left) with Spinal Anesthesia. The procedure was tolerated well and she was sent to the post operative recovery room in stable condition, where she also did well. She was subsequently sent to her hospital room for postoperative management. Once on the floor her postoperative course was unremarkable and she did well. Her diet was advanced which she tolerated. Her pain was well controlled and was eventually transitioned to oral medication alone prior to discharge. She worked with Physical and Occupational Therapy who recommended she be discharged home. Her dressing remained clean dry and intact throughout her stay. She remained afebrile with stable vital signs throughout her stay. She was stable for discharge to home on POD#1. Complete and comprehensive discharge instructions were provided to the patient as well as necessary prescriptions. The patient had no further questions and was advised to call with any questions, concerns, or problems. Patient was hemodynamically stable postoperatively. Relevant labs included: Hemoglobin (g/dL) Date Value 11/19/2022 10.0 (L) 11/01/2022 11.7 08/28/2022 11.8 Hematocrit (%) Date Value 11/19/2022 30.6 (L) 11/01/2022 34.8 (L) 08/28/2022 37.2 Discharge Antibiotics: Prior to surgery the patient was treated with antibiotics and continued with antibiotics 24 hours postoperatively Transfers: PACU and then to the hospital surgical floor when PACU criteria was met. DVT Prophylaxis: Aspirin to reduce risk of bleeding Pain Control: Oral narcotics Complications: Continued throughout the hospital course without complications. Patient Condition @ Discharge: Stable Discharge Disposition: Home with Home Health Care Other Information: None Discharge Activity/Weight Bearing Status: Weight bearing as tolerated The patient was instructed to follow-up in Future Appointments Date Time Provider Department Center 12/12/2022 8:30 AM XR [facility] 12/12/2022 9:00 AM Alhaji Francois PA-C [facility] 02/19/2023 2:00 PM Anival Ambriz MD [facility] Indp 02/26/2023 4:20 PM Timbo Bright MD INTMWS [facility] RUSSELL 03/26/2023 4:0 (more content not included)... [facility] CONSULT PROGon 11-19-2022 CONSULT PROG HNO ID: [id number] Author: Royal Brown MD Service: General Internal Medicine Author Type: Physician Type: Consult Progress Note Filed: 11/19/2022 12:55 PM Note Text: CONSULT NOTE - INTERNAL MEDICINE PATIENT NAME: Aury Metz SERVICE DATE: 11/19/2022 SERVICE TIME: 12:34 PM ADMITTING PHYSICIAN: Anival Ambriz MD SUBJECTIVE: Patient denies any CP, SOB, Dizziness, Palpitations, Abdominal Pain, Nausea or Vomiting. She is passing flatus, denies any urinary problems Her pain is controlled well OBJECTIVE PHYSICAL EXAM: Patient Vitals for the past 24 hrs: BP Temp Temp src Pulse Resp SpO2 11/19/22 1113 100/62 36.1 ?C (97 ?F) Oral 70 18 97 % 11/19/22 0700 122/62 36.2 ?C (97.2 ?F) Oral 72 18 98 % 11/18/222241 114/53 36.5 ?C (97.7 ?F) Oral 70 16 97 % 11/18/221947 (!) 105/40 -- -- 80 -- -- 11/18/221945 (!) 99/36 36.7 ?C (98.1 ?F) Oral 74 16 95 % 11/18/22 1521 (!) 101/49 36.4 ?C (97.5 ?F) Oral 71 17 99 % Body mass index is 24.05 kg/m?. GENERAL: no distress LUNGS: Lungs clear to auscultation, Fair air entry. CARDIAC: normal S1 and S2; no rub or gallops ABDOMEN: Abdomen soft, non-tender. BS normal. EXTREMETIES: Normal ankle DF Bilateral Problem List ACTIVE PROBLEM LIST Awareness of Heartbeats Gastroesophageal Reflux Disease Anemia Emotional Lability Rheumatoid Arthritis of Multiple Sites Without Organ Or System Involvement With Positive Rheumatoid Factor (Hcc) Drug Allergy Allergy to Sulfa Drugs Rash and Nonspecific Skin Eruption Hypothyroidism Moderate Obstructive Sleep Apnea Acute Pain of Both Knees Knee Joint Stiffness, Bilateral Difficulty Walking Hip Stiffness, Unspecified Laterality Right Lumbar Radiculitis Lumbar Spondylosis Chronic Right-Sided Low Back Pain With Right-Sided Sciatica Rheumatoid Arthritis Involving Both Knees With Positive Rheumatoid Factor (Hcc) Exercise-Induced Asthma Status Post Knee Replacement Raynaud Phenomenon Calcific Tendinitis of Right Shoulder Cervical Radiculopathy Disorder of Acromioclavicular Joint Personal History of Rheumatoid Arthritis History of Hypothyroidism Fibromyalgia 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 Mindy (Iron Deficiency Anemia) Status Post Total Replacement of Right Hip Reaction to Contrast Media Primary Osteoarthritis of Left Knee Status Post Total Left Knee Replacement DATA: Diagnostic tests reviewed for today's visit: Most recent labs: CBC, Coags, BMP, Mg, Phos Recent Labs 11/19/22 0445 WBC 11.49* HB 10.0* HCT 30.6* PLT 224 NA 141 K 4.1 CHLOR 106* CO2 26 BUN 12 CREAT 0.50* GLUC 118* CA 9.1 Assessment/Plan: 1. Status post left TKR: Pain is reasonably well with current treatment. She is doing well with therapy and is comfortable with plans for discharge today. 2. Rheumatoid arthritis, involving multiple joints, with positive RF: Patient will continue with medications as advised. 3. Obstructive sleep apnea: We will follow-up with reevaluation as advised. 4. GERD: Discussed with patient regarding management options. 5. Hypothyroidism: Continue supplementation 6. Exercise-induced asthma: Remained stable without any new symptoms. SIGNATURE: Royal Brown MD DATE: November 19, 2022 TIME: 12:34 PM This note was partially created using voice recognition software and is inherently subject to errors including those of syntax and sound-alike substitutions which may escape proofreading. In such instances, original meaning may be extrapolated by contextual derivation [facility] THERAPY NTon 11-19-2022 THERAPY NT HNO ID: [id number] Author: Awilda Dixon OTR/L Service: Occupational Therapy Author Type: Occupational Therapist Type: Therapy (PT/OT/Speech/Resp) Filed: 11/19/2022 12:18 PM Note Text: OCCUPATIONAL THERAPY MISSED VISIT SERVICE DATE: 11/19/2022 SERVICE TIME: 1217 to 1217 ROOM: [place] [address] Patient not seen due to No Skilled Needs. Per PT and patient report patient does not require OT. OT order discontinued. SIGNATURE: OZZY Prado/Rhonda PATIENT NAME: Aury Metz DATE: November 19, 2022 TIME: 12:17 PM [facility] THERAPY NT HNO ID: [id number] Author: Jesusita Amador PT Service: Physical Therapy Author Type: Physical Therapist Type: Therapy (PT/OT/Speech/Resp) Filed: 11/19/2022 12:13 PM Note Text: Physical Therapy Treatment SERVICE DATE: 11/19/2022 SERVICE TIME: 1110 to 1203 ROOM: [place] [address] Recommended Discharge Disposition: Home PT Recommended Discharge Disposition Comments: Patient is clear for discharge home Anticipated Discharge Needs: Physical Assist at Home Physical Assist at Home for: Cleaning, Laundry, Meals, Stairs, Shopping, Transportation Recommended Discharge Equipment: No equipment needs anticipated PT 6 Clicks Score: 24 Precautions/Activity Restrictions: Total Knee Replacement, Weight Bearing Restrictions, Lines/Tubes/Drains Extremity With Weight Bearing Restricted: Left Lower Extremity Left Lower Extremity Weight Bearing Status: WBAT Current Hospital Course: 57 yo female admitted with OA L knee, s/p L TKR Reason for Hospital Admission: s/p L TKR Relevant Past Medical History: GERD, NIKO, RA, Raynaud, anemia, lumbar spondy, s/p R TKR, fibromyalgia, MINDY, R THR, asthma Response to Therapy Interventions: Good participation in activities, Improved tolerance for activity, Notable progression with functional activities/skills, On-track to achieve discharge goals, Pain Assessment Comments: Patient is clear for discharge home Continue skilled needs due to: Functional mobility/skill impairments Physical Therapy Problem List: Education Deficit, Edema, Pain, Decreased Activity Tolerance, Decreased Range Of Motion, Decreased Strength, Functional Mobility Impairment Treatment Interventions: Education, Joint Mobility, Strengthening, Functional Mobility Training Home Environment Patient Lives With: Spouse Assistance Available: 24-Hour (for 2 weeks) Entry To Home: Stairs, With Rail Number Of Stairs Into Home: 4 Number Of Stairs To Bed/Bath: 0 Tub/Shower Type: tub shower Laundry: spouse can complete Equipment Owned: Walker- Wheeled, Shower Chair, Elevated Toilet Seat, Crutch(es), Cane, ADL Kit (3 wheeled walker, adjustable bed) Prior Functional Level: Within Functional Limits Prior Functional Level Comments: I with ADLs - uses shower chair and long shoe horn. No AD for ambulation. I with IADLs. Driving Patient Report: Patient in agreement with the plan for discharge home today. CURRENT FUNCTIONAL STATUS: Most recent performance Current Functional Mobility Assist Level Additional Information Rolling Supine to Sit Independent Sit to Supine Independent Scooting Independent Sit to Stand Modified Independent Stand to Sit Modified Independent Bed to Chair Minimal Assistance Bed To Chair Transfer Type: Stepping Bed To Chair Transfer Equipment: Wheeled Walker Toilet/Commode Stand By Assistance Gait Modified Independent Gait Device: Wheeled Walker Gait Distance (feet): 300' Stairs Stand By Assistance Stairs Device: Cane, Rail Number of Stairs: 3 Curb Step Car Transfer Blank marquez indicate activity not attempted Gait Deviations Right Lower Extremity: Step length decreased Gait Deviations Left Lower Extremity: Heel strike during initial stance decreased, Push off during terminal stance decreased, Stance time decreased, Weight bearing decreased General Deviations/Observations : Antalgic gait, Marichuy decreased JH-HLM: 8: Walk 250 feet or more Learning/Educational Needs: Discharge Plan, Family Education/Training, Functional Activities/Mobility, Pain Management, Plan of Care, Precautions, Rehabilitation Techniques and Procedures, Safety Goals for Plan of Care: Goals: Patient will demonstrate progress with functional mobility to allow safe discharge to home with available support and/or physical assistance. Ambulate Up and Down Steps with: Stand By Assistance Number of Steps: 4 Device: Cane, Rail Progress Toward Goals: Progressing as expected Rehab Potential: Good Patient will be discontinued from Physical Therapy when no further skilled needs are identified in this setting. PLAN: PT Frequency: Once daily Plan of Care developed with: Patient, Family TREATMENT INTERVENTIONS: Therapy Diagnosis: Reduced mobility-other, Unsteadiness on feet Interventions Provided: Therapeutic Exercise (43849), Gait Training (18657) Therapeutic Exercise (22634) Treatment Minutes: 30 $ Therapeutic Exercise (83520) Billed Units: 2 units Gait Training (10677) Treatment Minutes: 23 $ Gait Training (96756) Billed Units: 2 units Training AND education provided in: Assistive device use, Discharge planning, Disease specific education, Edema management, Equipment, Exercise program, Expected functional level, Gait pattern, reduction of deviations, Stair navigation, Transfers The following therapeutic skills were used: Activity dosing, Cues for sequencing/proper technique for activity, Cuing verbal, Task analysis learning, Teach-back for education Timed Code Treatme (more content not included)... Normal [facility] ANES POSTPROC EVALon 023 ANES POSTPROC EVAL HNO ID: [id number] Author: Zofia Rock MD Service: Anesthesiology Author Type: Physician Type: Anesthesia Postprocedure Evaluation Filed: 11/18/2022 11:45 AM Note Text: POST ANESTHESIA EVALUATION NOTE : 1965 Procedure Summary Date: 11/18/22 Room / Location: [place] [address] / OR Anesthesia Start: 734 Anesthesia Stop: 1004 Procedure: ARTHROPLASTY REPLACE JOINT TOTAL KNEE (Left: Knee) Diagnosis: Primary osteoarthritis of left knee (Primary osteoarthritis of left knee [M17.12]) Surgeons: Anival Ambriz MD Responsible Provider: Zofia Rock MD Anesthesia Type: spinal ASA Status: 2 Anesthesia Type: spinal Last Vitals Vitals Value Taken Time BP 117/51 11/18/22 1123 Temp 36.4 ?C (97.5 ?F) 11/18/22 1123 Pulse 65 11/18/22 1123 Resp 17 11/18/22 1123 SpO2 98 % 11/18/22 1123 Post Anesthesia Patient Status Patient Evaluation: PACU. PACU/ICU Patient Condition: stable. Anticipated Disposition: phase 2 then home. Neurological Status: aware and responsive. Pulmonary Status: breathing comfortably on room air Airway Control: returned to baseline unsupported. Cardiovascular Status: stable. Pain Management: clinically adequate Postoperative Hydration: acceptable. Intraoperative Events: no significant anesthesia events Post Operative Nausea/Vomiting Status: no significant post operative nausea or vomiting Recommendation: continue current plan of care. Anesthesia Observations No Documentation SIGNATURE: Zofia Rock MD PATIENT NAME: Aury Metz DATE: November 18, 2022 TIME: 11:45 AM CSN: [id number] [facility] ANES PRE-OPon 11-18-2022 [facility] PRE-OP HNO ID: [id number] Author: MILES Taylor Service: Anesthesiology Author Type: Hog Scraper Type: Anesthesia Preprocedure Evaluation Filed: 11/18/2022 7:31 AM Note Text: Attestation signed by Zofia Rock MD at 11/18/2022 8:22 AM Attending statement: 57 y/o female with a PMH significant for hypothyroidism, GERD, moderate NIKO, exercise-induced asthma, RA involving both knees s/p right total knee replacement who is now here for left total knee replacement. The risks for spinal placement such as intravascular injection, LAST, paresthesias, direct nerve damage, high spinal or partial or failed spinal blockade requiring conversion to general anesthesia were discussed with Mrs. Metz and she agrees to proceed with spinal placement. I also discussed the risks and benefits of PNB placement such as infection, intravascular injection, paresthesias, LAST, direct nerve damage, failed or partial block requiring replacement and/or supplementation and benefits (improved pain control, decreased opioid consumption, decreased ileus, urination retention and shorter hospital stay) and Mrs. Metz wishes to proceed with placement of left single shot adductor canal nerve block, as requested by Dr. Ambriz. Case to be done under spinal anesthesia with propofol infusion for maintenance of anesthesia during the case. Plan to place a left single shot adductor nerve block in the PACU following surgery. ANESTHESIOLOGY DAY OF SURGERY NOTE : 1965 Procedure Information Date/Time: 11/18/22729 Procedure: ARTHROPLASTY REPLACE JOINT TOTAL KNEE (Left: Knee) Location: OR / OR Surgeons: Anival Ambriz MD Estimated body mass index is 24.27 kg/m? as calculated from the following: Height as of 11/06/22: 166.4 cm (5' 5.5). Weight as of 11/06/22: 67.2 kg (148 lb 1.6 oz). Most recent hematocrit and potassium results: Hematocrit 34.8 11/01/2022 Potassium 3.7 11/01/2022 Relevant Problems ANESTHESIA (+) Moderate obstructive sleep apnea ENDO (+) Hypothyroidism GI (+) Gastroesophageal reflux disease NEURO-PSYCH (+) History of hypothyroidism (+) Personal history of rheumatoid arthritis PULMONARY (+) Exercise-induced asthma (+) Moderate obstructive sleep apnea Other (+) Rheumatoid arthritis involving both knees with positive rheumatoid factor (HCC) (+) Rheumatoid arthritis of multiple sites without organ or system involvement with positive rheumatoid factor (HCC) I - PHYSICAL EVALUATION AIRWAY Patient intubated: No. Tracheostomy tube not present Mallampati: II. TM distance: >3 FB. Neck ROM: full ROM without neurological symptoms. Mouth opening: non-adequate. Short neck: no. Thick neck: no Garrett present: no DENTAL Dentures, upper: partial. Additional exam findings: yes. CARDIOVASCULAR Normal cardiovascular observations. PULMONARY Normal pulmonary observations. ABDOMINAL Normal abdominal observations. Other findings: Rheumatoid arthritis, stiff neck small mouth opening. II - ANESTHESIA PLAN ASA Score: 2 Anesthetic Plan: spinal The patient is not a current smoker. NPO Status: adequate Beta Jayro Monitoring Plan Monitoring plan: standard ASA. Post Procedure Analgesic Plan Postoperative analgesic plan: peripheral nerve block and multimodal analgesia. Informed Consent Anesthetic risks, benefits, alternatives, personnel and consent discussed: yes. Patient / Responsible Democrat agrees to proceed: yes Patient / Surrogate agrees to blood products: Yes Potential Anesthesia issues that may suggest increased risk of complications or contraindication to planned procedure: potential difficult intubation. Vitals Value Taken Time BP 199/55 11/18/22623 Pulse Resp 18 11/18/22623 Temp 36.5 ?C (97.7 ?F) 11/18/22623 SpO2 99 % 11/18/22623 Facility-Administered Medications as of 11/18/2022 Medication Dose Route Frequency - lidocaine (PF) 10 mg/mL (1 %) 1-2 mg injection (XYLOCAINE) 0.1-0.2 mL INTRADERMAL PRN - lactated ringers iv infusion 5-30 mL/hr INTRAVENOUS CONTINUOUS - NaCl 0.9% iv flush bag 20 mL INTRAVENOUS PRN - vancomycin iv piggyback 1 g in D5W 200 mL (VANCOCIN) 1 g INTRAVENOUS ONCE - [COMPLETED] tranexamic acid (CYKLOKAPRON) in NaCl 0.7% 1,000 mg 100 mL 1,000 mg INTRAVENOUS ONCE - tranexamic acid (CYKLOKAPRON) in NaCl 0.7% 1,000 mg 100 mL 1,000 mg INTRAVENOUS ONCE - ciprofloxacin iv piggyback 400 mg in D5W 200 mL (CIPRO) 400 mg INTRAVENOUS ONCE Outpatient Medications as of 11/18/2022 Medication Sig - ondansetron orally disintegrating (ZOFRAN ODT) 4 mg disintegrating tablet Take 1 tablet by mouth every 8 hours as needed for nausea/vomiting for up to 12 doses. - docusate sodium (COLACE) 100 mg capsule Take 1 capsule by mouth twice daily fo (more content not included)... [facility] PRE-OP HNO ID: [id number] Author: Zofia Rock MD Service: Anesthesiology Author Type: Physician Type: Anesthesia Preprocedure Evaluation Filed: 11/18/2022 8:19 AM Note Text: ANESTHESIOLOGY DAY OF SURGERY NOTE : 1965 Procedure Information Date/Time: 11/18/22729 Procedure: ARTHROPLASTY REPLACE JOINT TOTAL KNEE (Left: Knee) Location: OR / RED OR Surgeons: Anival Ambriz MD Estimated body mass index is 24.27 kg/m? as calculated from the following: Height as of 11/06/22: 166.4 cm (5' 5.5). Weight as of 11/06/22: 67.2 kg (148 lb 1.6 oz). Most recent hematocrit and potassium results: Hematocrit 34.8 11/01/2022 Potassium 3.7 11/01/2022 Relevant Problems ANESTHESIA (+) Moderate obstructive sleep apnea ENDO (+) Hypothyroidism GI (+) Gastroesophageal reflux disease NEURO-PSYCH (+) History of hypothyroidism (+) Personal history of rheumatoid arthritis PULMONARY (+) Exercise-induced asthma (+) Moderate obstructive sleep apnea Other (+) Rheumatoid arthritis involving both knees with positive rheumatoid factor (HCC) (+) Rheumatoid arthritis of multiple sites without organ or system involvement with positive rheumatoid factor (HCC) I - PHYSICAL EVALUATION AIRWAY Patient intubated: No. Tracheostomy tube not present Mallampati: II. TM distance: >3 FB. Neck ROM: full ROM without neurological symptoms. Mouth opening: adequate. Short neck: no. Thick neck: no Garrett present: no DENTAL Dental findings: teeth intact. Additional exam findings: yes. CARDIOVASCULAR Rhythm: regular PULMONARY Breath sounds clear to auscultation. II - ANESTHESIA PLAN ASA Score: 3 Anesthetic Plan: spinal The patient is not a current smoker. NPO Status: adequate Anesthetic plan additional comments: The risks for spinal placement such as intravascular injection, LAST, paresthesias, direct nerve damage, high spinal or partial or failed spinal blockade requiring conversion to general anesthesia were discussed with Mrs. Metz and she agrees to proceed with spinal placement. I also discussed the risks and benefits of PNB placement such as infection, intravascular injection, paresthesias, LAST, direct nerve damage, failed or partial block requiring replacement and/or supplementation and benefits (improved pain control, decreased opioid consumption, decreased ileus, urination retention and shorter hospital stay) and Mrs. Metz wishes to proceed with placement of left single shot adductor canal nerve block, as requested by Dr. Ambriz. Case to be done under spinal anesthesia with propofol infusion for maintenance of anesthesia during the case. Plan to place a left single shot adductor nerve block in the PACU following surgery.. Beta Jayro Monitoring Plan Monitoring plan: standard ASA. Post Procedure Analgesic Plan Postoperative analgesic plan: parenteral or oral opioids. Informed Consent Anesthetic risks, benefits, alternatives, personnel and consent discussed: yes. Patient / Responsible Democrat agrees to proceed: yes Patient / Surrogate agrees to blood products: Yes DNR status reviewed with patient and/or family prior to surgery. patient elects to suspend DNR status in the perioperative setting (Full Code). Significant changes in the patient condition since the History and Physical, not otherwise documented in primary service progress note: no. Potential Anesthesia issues that may suggest increased risk of complications or contraindication to planned procedure: none. Vitals Value Taken Time BP 199/55 11/18/22623 Pulse Resp 18 11/18/22623 Temp 36.5 ?C (97.7 ?F) 11/18/22623 SpO2 99 % 11/18/22623 Facility-Administered Medications as of 11/18/2022 Medication Dose Route Frequency - lidocaine (PF) 10 mg/mL (1 %) 1-2 mg injection (XYLOCAINE) 0.1-0.2 mL INTRADERMAL PRN - lactated ringers iv infusion 5-30 mL/hr INTRAVENOUS CONTINUOUS - NaCl 0.9% iv flush bag 20 mL INTRAVENOUS PRN - vancomycin iv piggyback 1 g in D5W 200 mL (VANCOCIN) 1 g INTRAVENOUS ONCE - [COMPLETED] tranexamic acid (CYKLOKAPRON) in NaCl 0.7% 1,000 mg 100 mL 1,000 mg INTRAVENOUS ONCE - tranexamic acid (CYKLOKAPRON) in NaCl 0.7% 1,000 mg 100 mL 1,000 mg INTRAVENOUS ONCE - ciprofloxacin iv piggyback 400 mg in D5W 200 mL (CIPRO) 400 mg INTRAVENOUS ONCE Outpatient Medications as of 11/18/2022 Medication Sig - ondansetron orally disintegrating (ZOFRAN ODT) 4 mg disintegrating tablet Take 1 tablet by mouth every 8 hours as needed for nausea/vomiting for up to 12 doses. - docusate sodium (COLACE) 100 mg capsule Take 1 capsule by mouth twice daily for 15 days. - acetaminophen (TYLENOL EXTRA STRENGTH) 500 mg tablet Take 2 tablets by mouth every 8 hours as needed for pain for up to 15 days. - aspirin, enteric coated (ECOTRIN LOW STRENGTH) 81 mg EC tablet Take 1 tablet by mouth twice daily. - oxyCODONE IR (ROXICODONE) 5 mg immediate release tablet Take 1-2 tabl (more content not included)... [facility] BRIEF OP NOTon 11-18-2022 BRIEF OP NOT HNO ID: [id number] Author: Néstor Wilson MD Service: Orthopaedic Surgery Author Type: Resident Type: Brief Op Note Filed: 11/18/2022 9:45 AM Note Text: BRIEF OPERATIVE / PROCEDURE NOTE LOG ID: [id number] SURGERY/PROCEDURE DATE: 11/18/2022 INCISION/PROCEDURE START TIME: 8:08 AM INCISION CLOSE/PROCEDURE END TIME: SURGEON(S)/PROCEDURALIS T(S) AND MEDICAL STAFF COORDINATOR(S): Surgeon(s) and Role: * Anival Ambriz MD - Primary * Néstor Wilson MD - Resident - Assisting Physician Stereo Plotter Operator: Kenrick Trimble PA-C; Bety Saenz PA-C SURGERY/PROCEDURE(S): Procedure(s) with comments: ARTHROPLASTY REPLACE JOINT TOTAL KNEE - Left TKA ANESTHESIA: Spinal FINDINGS: L knee oa ESTIMATED BLOOD LOSS: 100 mls SPECIMENS: ID Type Source Tests Collected by Time A : synovial biopsy left knee Tissue [facility] Anival Ambriz MD 11/18/2022 8:18 AM COMPLICATIONS: None IMPLANTS: Implant Name Type Inv. Item Serial No. Extrusion Press Operator Lot No. LRB No. Used Action CEMENT SIMPLEX P BONE RADIOPAQUE FULL DOSE STERILE - [id number] Cement / Putty CEMENT SIMPLEX P BONE RADIOPAQUE FULL DOSE STERILE [facility] [employer] [id number] Left 1 Implanted SCREW PERSONA 2.5MM FEMALE HEXAGON 25MM HEADFRAME KNEE - [id number] Screw SCREW PERSONA 2.5MM FEMALE HEXAGON 25MM HEADFRAME KNEE [employer] [id number] Left 1 Non-Implant COMPONENT 29MM ALL POLY PATELLAR PSN - [id number] Joint - Knee COMPONENT 29MM ALL POLY PATELLAR PSN [employer] [id number] Left 1 Implanted EXTENSION PERSONA 14MM TAPER 30+ MM STEM KNEE TIBIA - [id number] Joint EXTENSION PERSONA 14MM TAPER 30+ MM STEM KNEE TIBIA [employer] [id number] Left 1 Implanted BASEPLATE PERSONA 5D E TIVANIUM TIBIAL CEMENTED STEM KNEE LEFT - [id number] Joint BASEPLATE PERSONA 5D E TIVANIUM TIBIAL CEMENTED STEM KNEE LEFT [employer] [id number] Left 1 Implanted INSERT PERSONA 6-7 E-F VIVACIT-E 11MM ARTICULAR STERILE KNEE LEFT - [id number] Joint - Knee INSERT PERSONA 6-7 E-F VIVACIT-E 11MM ARTICULAR STERILE KNEE LEFT [employer] [id number] Left 1 Implanted COMPONENT PERSONA 7 STANDARD COCR FEMORAL CRUCIATE RETAIN - [id number] Joint - Knee COMPONENT PERSONA 7 STANDARD COCR FEMORAL CRUCIATE RETAIN [employer] [id number] Left 1 Implanted PRE-OP/PRE-PROCEDURE DIAGNOSIS: L knee oa POST-OP/POST-PROCEDURE DIAGNOSIS: Same as Preop A member from the surgical team accompanied the patient to PACU for verbal signout. SIGNATURE: Néstor Wilson MD PATIENT NAME: Aury Metz DATE: November 18, 2022 TIME: 9:44 AM PAGER/CONTACT #: - Weightbearing: WBAT - Range of Motion: as tolerated - Dressing: silver dressing x 7 days post-op - Drains: n/a - Negro: per nursing protocol - Diet: regular - HLIV when tolerating adequate PO - DVT Prophylaxis: Aspirin 81mg BID x 4 wks, SCDs - Antibiotics: clinda domonique-op - Cultures: n/a - Consults: IM, PT/OT, care management, appreciate recs Dispo: Pending PT/OT recs, anticipated discharge POD1 [facility] [id number] Author: Genoveva Colin RN Service: Care Management Author Type: Registered Nurse Type: Care Mgt Initial Assessment Filed: 11/18/2022 1:33 PM Note Text: CARE MANAGEMENT: ASSESSMENT AND DISCHARGE PLAN SERVICE DATE: November 18, 2022 SERVICE TIME: 1215 PRIMARY CARE PHYSICIAN: Timbo Bright MD Primary Contact: Extended Emergency Contact Information Primary Emergency Contact: Luc Metz Address: [address] [place] [address] Relation: Spouse Secondary Emergency Contact: Lawrence Metz Mobile Relation: Son ADMISSION STATUS: Ambulatory Surgery Insurance Provider: [facility] CHOICE PLUS NEEDS PRIOR TO DISCHARGE Needs Prior to Discharge: OT/PT Evaluation, Home Care Order, Facility or Agency Choices, Discharge Prescriptions POTENTIAL TRANSITION PLANS Home;Home OT/PT Based on clinical judgement, Care Management will address the following needs: Functional Patient's perception of need for this admission: To have TKR ADVANCE DIRECTIVES Current Advance Directive: Health Care 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;Living Will In Chart: No MS/BEHAVIOR Baseline Mental Status Prior to this Illness what was the patient's Baseline Mental Status?: Alert AND Oriented Prior to this illness, has anyone described the patient having any of the following behaviors?: Not Applicable Relationship of the informant to the patient:: Self READMISSION Last Discharge Date: 06/19/22 Is this Within the Past 30 days? 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 scores in the EMR?: Yes Any potential risks related to substance abuse and/or behavioral health?: No Based on clinical judgement, Care Management will address the following needs: Functional CAREGIVER ASSESSMENT Caregiver is ready, willing and able to meet the patient's needs as recommended by the inter-professional team:: Yes Name of Caregiver: Spouse Patient's transition needs and plan for meeting these needs: To go home with [facility] once all goals have been met FUNCTIONAL How do you manage to accomplish the following: Needs Assistance: Ambulation Services/Needs//Equipme nt Does Patient Currently Receive Any Community Services or Home Care?: None Equipment Prior to Admission: Walker;Cane;Elevated toilet seat Has the Patient Been in a [facility] Facility in the Past 30 days?: No No medical discharge barriers identified at this time. No social discharge barriers identified at this time. No behavioral/cognitive discharge barriers identified at this time. FREEDOM OF CHOICE EXPLAINED: [place] of Choice Given: Yes Level of Care Discussed: Home Care Financial Disclosure Provided: Yes Financial Disclosure Comments: [facility] Affiliate Provider list within the patient's requested geographic area shared with the patient/family: No Quality and resource use metrics shared with the patient that are relevant to the patient's goals of care and treatment preferences:: Yes Metrics: Potentially Preventable 30-day Post Discharge Readmission Rates;Skin Integrity;Functional Status Reason: declined Are you interested in bedside delivery of your medications? Yes ASSESSMENT AND PLAN: Patient lives with her and will assist her at home. She has DME(Walker, cane, elevated seat). [facility] care referral [facility] with [facility] and scripts sent to [facility]. No other needs at this time. will remain available for any further needs. SIGNATURE: Genoveva Colin RN PATIENT NAME: Aury Metz DATE: November 18, 2022 TIME: 1:31 PM CONTACT #: [phone] [facility] CONSULTon 11-18-2022 CONSULT HNO ID: [id number] Author: Royal Brown MD Service: General Internal Medicine Author Type: Physician Type: Consults Filed: 11/18/2022 1:19 PM Note Text: CONSULT NOTE - INTERNAL MEDICINE PATIENT NAME: Aury Metz SERVICE DATE: 11/18/2022 SERVICE TIME: 1:12 PM ADMITTING PHYSICIAN: Anival Ambriz MD CC: Post operative medical m/m, patient is s/p left TKR HPI: Her pain is controlled well; She denies any postop nausea or vomiting. Patient complains of having headache earlier today, headache is resolved completely. Feels likely related to stress. She also complains of having 2 loose bowel movements almost daily for the last 5 to 7 days, along with having worsening of GI reflux. Feels omeprazole was not helping very much for GI reflux. Received IV Pepcid and is doing much better. She denies any recent fever or chills, skin infections or any upper respiratory infections. Patient does not smoke. She does not drink any alcohol. PAST MEDICAL HISTORY Diagnosis Date Bronchitis, not specified as acute or chronic Dizziness and giddiness Esophageal reflux 10/27/2006 High cholesterol Palpitations 06/08/2007 Stress echo at [facility] and EF% is 61. RA (rheumatoid arthritis) (HCC) Rheumatoid arthritis(714.0) 05/02/2011 PAST SURGICAL HISTORY Procedure Laterality Date EGD W/O BRSH SPEC VARICIES INJ 06/03/2013 ESOPHAGOSCOPY FLEX BALLOON DILAT <30 MM DIAM 2001 2005 Esophageal dilatation LAPS ABD PRTMANDOMENTUM DX W/WO SPEC BR/WA SPX Laparoscopy LIG/TRNSXJ FLP TUBE ABDL/VAG APPR UNI/BI Tubal ligation TOTAL HIP REPLACEMENT Right 05/2022 TOTAL KNEE REPLACEMENT Right 07/02/2021 Social History Tobacco Use Smoking status: Never Smokeless tobacco: Never Vaping Use Vaping Use: Never used Substance Use Topics Alcohol use: No Drug use: No MEDICATIONS: Current Facility-Administered Medications Medication Dose Route Frequency Provider Last Rate Last Admin albuterol HFA 90 mcg/actuation 2 Puff (PROVENTIL HFA, VENTOLIN HFA) 2 Puff INHALATION q 4 H PRN Néstor Wilson MD thyroid 60 mg tab(s) 60 mg ORAL DAILY (7 AM) Néstor Wilson MD 60 mg at 11/18/22 1146 [START ON 11/19/2022] aspirin, enteric coated 81 mg tab(s) 81 mg ORAL BID Néstor Wilson MD NaCl 0.9% iv infusion 75 mL/hr INTRAVENOUS CONTINUOUS Néstor Wilson MD 75 mL/hr at 11/18/22 1146 75 mL/hr at 11/18/22 1146 acetaminophen 1,000 mg tab(s) (TYLENOL) 1,000 mg ORAL q 8 H Néstor Wilson MD 1,000 mg at 11/18/22 1146 keTORolac 15 mg injection (TORADOL) 15 mg INTRAVENOUS q 6 H Néstor Wilson MD oxyCODONE IR 5-10 mg tab(s) (ROXICODONE) 5-10 mg ORAL q 4 H PRN Néstor Wilson MD 5 mg at 11/18/22 1146 HYDROmorphone (PF) 0.4 mg injection (DILAUDID) 0.4 mg INTRAVENOUS q 4 H PRN Néstor Wilson MD ondansetron 4 mg tab(s) (ZOFRAN) 4 mg ORAL q 6 H PRN Néstor Wilson MD Or ondansetron (PF) 4 mg injection (ZOFRAN) 4 mg INTRAVENOUS q 6 H PRN Néstor Wilson MD [START ON 11/19/2022] magnesium hydroxide 400 mg/5 mL 30 mL (MOM) 30 mL ORAL DAILY PRN Néstor Wilson MD [START ON 11/20/2022] bisacodyl EC 10 mg tab(s) (DULCOLAX) 10 mg ORAL DAILY Néstor Wilson MD aluminum-magnesium hydroxide-simethicone 200-200-20 mg/5 mL 30 mL (MAALOX,MYLANTA,MAG-AL PLUS) 30 mL ORAL q 2 H PRN Néstor Wilson MD [START ON 11/19/2022] ascorbic acid (vitamin C) 500 mg tab(s) (VITAMIN C) 500 mg ORAL BID w MEALS Néstor Wilson MD [START ON 11/19/2022] docusate sodium 100 mg cap(s) (COLACE) 100 mg ORAL BID Néstor Wilson MD senna 17.2 mg tab(s) (SENOKOT) 17.2 mg ORAL AT BEDTIME Néstor Wilson MD clindamycin iv piggyback 900 mg in D5W 50 mL (CLEOCIN) 900 mg INTRAVENOUS q 8 H Néstor Wilson MD ALLERGIES Allergen Reactions Cephalexin Anaphylaxis, Other: See Comments Throat swelling. Has tolerated augmentin 850mg as op after this episode Aciphex [Rabeprazol* Other: See Comments Chest pain Bactrim [Sulfametho* Vomiting Carafate [Sucralfat* Vomiting Darvocet-N 100 [Pro* Other: See Comments dizzy severe pain in head Erythromycin Vomiting Gluten Intolerance Iodinated Contrast * Shortness of Breath Vancomycin Itching Scalp itchy Family History Problem Relation Age of Onset Heart Mother murmur COPD Mother other (High Cholesterol) Mother other (vocal cord paralysis ) Mother other (Abdominal Mass) Mother Not sure if cancerous Hypertension Father Lipids Sister Diabetes Brother Rheumatologic disease Brother Heart Brother Heart Brother mi Diabetes Brother Arthritis Maternal Grandmother RA Breast Cancer Son 18 people on Mom's side of family other (hodgkin) Son Colon Cancer No Family History ROS: Patient denies any recent ENT or eye complaints, CP, palpitation, cough, wheeze, dizziness, dyspnea, nausea, vomiting, recent urinary or bowel changes, rash or increased ankle swelling. Rest of the review of system is negative except as noted. OBJECTIVE PHYSICAL EXAM: Patient Vitals for the p (more content not included)... [facility] NURSING PROGon 11-18-2022 NURSING PROG HNO ID: [id number] Author: Leticia Viera RN Service: ? Author Type: Registered Nurse Type: Nursing Progress Note Filed: 11/18/2022 11:35 AM Note Text: Transfer Note: Patient transferred into room/unit 502-2 in stable condition. Patient educated on use of call light, fall precautions, and incentive spirometers. No futher actions taken at this time. Will continue to monitor and check with patient. [facility] OPERATIVE NOon 11-18-2022 OPERATIVE NO HNO ID: [id number] Author: Anival Ambriz MD Service: Orthopaedic Surgery Author Type: Physician Type: Operative Report Filed: 11/18/2022 10:27 AM Note Text: OPERATIVE/PROCEDURE REPORT LOG ID: [id number] Surgery/Procedure Date: 11/18/2022 Incision/Procedure Start Time: 8:08 AM Incision Close/Procedure End Time: 9:52 AM Surgeon(s) and Stereo Plotter Operator(s): Surgeon(s) and Role: * Anival Ambriz MD - Primary * Néstor Wilson MD - Resident - Assisting Physician Stereo Plotter Operator: Kenrick Trimble PA-C; Bety Saenz PA-C Procedure(s): Procedure(s) (LRB): ARTHROPLASTY REPLACE JOINT TOTAL KNEE (Left) Anesthesia: Spinal Findings: The medial compartment was severely eburnated with bone loss on the posterior medial tibia and posterior medial femoral condyles Preop Diagnosis: Pre-Op Diagnosis Codes: * Primary osteoarthritis of left knee [M17.12] Postop Diagnosis: Pre-Op Diagnosis Codes: * Primary osteoarthritis of left knee [M17.12] IMPLANTS: Implant Name Type Inv. Item Serial No. Extrusion Press Operator Lot No. [id number] No. Used Action Model No. CEMENT SIMPLEX P BONE RADIOPAQUE FULL DOSE STERILE - [id number] Cement / Putty CEMENT SIMPLEX P BONE RADIOPAQUE FULL DOSE STERILE [facility] [id number] Left 1 Implanted [id number] COMPONENT 29MM ALL POLY PATELLAR PSN - [id number] Joint - Knee COMPONENT 29MM ALL POLY PATELLAR PSN [email or web address] [id number] Left 1 Implanted [id number] EXTENSION PERSONA 14MM TAPER 30+ MM STEM KNEE TIBIA - [id number] Joint EXTENSION PERSONA 14MM TAPER 30+ MM STEM KNEE TIBIA [employer] [id number] Left 1 Implanted [id number] BASEPLATE PERSONA 5D E TIVANIUM TIBIAL CEMENTED STEM KNEE LEFT - [id number] Joint BASEPLATE PERSONA 5D E TIVANIUM TIBIAL CEMENTED STEM KNEE LEFT [employer] [id number] Left 1 Implanted [id number] INSERT PERSONA 6-7 E-F VIVACIT-E 11MM ARTICULAR STERILE KNEE LEFT - [id number] Joint - Knee INSERT PERSONA 6-7 E-F VIVACIT-E 11MM ARTICULAR STERILE KNEE LEFT [employer] [id number] Left 1 Implanted [id number] COMPONENT PERSONA 7 STANDARD COCR FEMORAL CRUCIATE RETAIN - [id number] Joint - Knee COMPONENT PERSONA 7 STANDARD COCR FEMORAL CRUCIATE RETAIN [employer] [id number] Left 1 Implanted [id number] PROBLEM LIST: ACTIVE PROBLEM LIST Awareness of Heartbeats Gastroesophageal Reflux Disease Anemia Emotional Lability Rheumatoid Arthritis of Multiple Sites Without Organ Or System Involvement With Positive Rheumatoid Factor (Hcc) Drug Allergy Allergy to Sulfa Drugs Rash and Nonspecific Skin Eruption Hypothyroidism Moderate Obstructive Sleep Apnea Acute Pain of Both Knees Knee Joint Stiffness, Bilateral Difficulty Walking Hip Stiffness, Unspecified Laterality Right Lumbar Radiculitis Lumbar Spondylosis Chronic Right-Sided Low Back Pain With Right-Sided Sciatica Rheumatoid Arthritis Involving Both Knees With Positive Rheumatoid Factor (Hcc) Exercise-Induced Asthma Status Post Knee Replacement Raynaud Phenomenon Calcific Tendinitis of Right Shoulder Cervical Radiculopathy Disorder of Acromioclavicular Joint Personal History of Rheumatoid Arthritis History of Hypothyroidism Fibromyalgia 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 They have developed varus deformity in the left knee from predominantly medial wear and bone loss. Non-operative treatment and Physical Therapy have been attempted , but have not improved or controlled the symptoms and pain that occurs during normal daily activities. Knee motion has also become limited and is restricting the patient. lefttotal knee arthroplasty was recommended. The risks, benefits and potential complications of the arthroplasty surgery were discussed with the patient in detail. Specific details of the surgical procedure, hospitalization, recovery, rehabilitation, and long-term precautions were also presented. Pre-operative teaching was provided. Implant/prosthesis selection was outlined, and the many options available were explained; the final choice will be made at the time of the procedure to match the anatomy and condition of the bone, ligaments, tendons, and muscles. The patient was seen by [facility] for pre-operative optimization, and risk assessment. Domonique-operative blood management and the potential for blood transfusion were discussed with risks and options clearly outlined. Understanding of all topics was conveyed to me by the patient pre-operatively, and patient consent was given to proceed with theleft total knee replacement. OPERATIVE PROCEDURE: The patient was identified and brought into the Operating Room by the anesthesia and nursing teams. A huddle was performed wi (more content not included)... [facility] SURGICAL PATHOLOGYon 023 CASE REPORT [facility] Comment on above: Order Comment: Specrosemary ruiz Type: TISSUE SPECIMENOrdering Facility: [facility] Address: [address] [place], [place] [id number] Result Comment: Surg [facility] Pathology Report Case: [id number] Authorizing Provider: Anival Ambriz MD Collected: 11/18/2022 08:18 AM Ordering Location: [facility] Received: 11/19/2022 08:00 AM Operating Room Pathologist: Aury Lopez MD Specimen: SYNOVIUM, synovial biopsy left knee Performed By: #### S ####[facility] LABIA [id number] [address] [place] CLINICAL HISTORY [facility] Comment on above: Order Comment: Shahram ruiz Type: TISSUE SPECIMENOrdering Facility: [facility] Address: [address] [place], [place] [id number] Result Comment: Pre- op diagnosis: Primary osteoarthritis of left knee [M17.12] Performed By: #### S ####[facility] LABCLIA [id number] [address] STATES OF [facility] FINAL DIAGNOSIS [facility] Comment on above: Order Comment: Shahram ruiz Type: TISSUE SPECIMENOrdering Facility: [facility] Address: [address] [place] [address] Result Comment: Syno vium, left knee, biopsy: - Chronic nonproliferative synovitis. - Negative for crystal deposition and significant acute inflammation. Performed By: #### S ####[facility] LABCLIA [id number] [address] [place] FINAL PERFORMING LAB Normal [facility] Comment on above: Order Comment: Speci joseph Type: TISSUE SPECIMENOrdering Facility: [facility] Address: [address] [place] [address] Result Comment: Diag nostic interpretation performed at [facility], [address] [place] [address] CLIA# [id number] Rougher Helper: Brayan Hill M.D. Performed By: #### S ####[id number] [address] [place] DES[place] A. SYNOVIUM Normal [facility] Comment on above: Order Comment: Speci men Type: TISSUE SPECIMENOrdering Facility: [facility] Address: [address] [place] [address] Result Comment: Rece ived in formalin, labeled synovial biopsy left knee is an unoriented portion of hester-pink, soft to rubbery, glistening tissue, measuring 3.3 x 2.7 x 0.6 cm. Sectioning reveals unremarkable, soft, homogenous cut surfaces. 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 AKA November 19, 2022 11:10 AM Gross examination performed at [facility], [address] [place] [address] Performed By: #### S ####[facility] LABIA [id number] [address] [place] THERAPY NTon 11-18-2022 THERAPY NT HNO ID: [id number] Author: Jesusita Amador PT Service: Physical Therapy Author Type: Physical Therapist Type: Therapy (PT/OT/Speech/Resp) Filed: 11/18/2022 2:25 PM Note Text: Physical Therapy Evaluation SERVICE DATE: 11/18/2022 SERVICE TIME: 1327 to 1417 ROOM: [place] [address] Recommended Discharge Disposition: Home PT Recommended Discharge Disposition Comments: Patient did not want to discharge home POD#0. Anticipate patient will be safe for discharge home tomorrow. Anticipated Discharge Needs: Physical Assist at Home Physical Assist at Home for: Cleaning, Laundry, Meals, Stairs, Shopping, Transportation Recommended Discharge Equipment: No equipment needs anticipated PT 6 Clicks Score: 21 Precautions/Activity Restrictions: Total Knee Replacement, Weight Bearing Restrictions, Lines/Tubes/Drains Extremity With Weight Bearing Restricted: Left Lower Extremity Left Lower Extremity Weight Bearing Status: WBAT Current Hospital Course: 57 yo female admitted with OA L knee, s/p L TKR Reason for Hospital Admission: s/p L TKR Relevant Past Medical History: GERD, NIKO, RA, Raynaud, anemia, lumbar spondy, s/p R TKR, fibromyalgia, MINDY, R THR, asthma Response to Therapy Interventions: Good participation in activities, On-track to achieve discharge goals, Pain Assessment Comments: Patient presents with pain, reduced ROM/strength s/p L TKR. Patient's impairments are limiting her safety and independence with mobility however I anticipate patient will be safe for discharge home [place] after PT session. Continue skilled needs due to: Functional mobility/skill impairments Physical Therapy Problem List: Education Deficit, Edema, Pain, Decreased Activity Tolerance, Decreased Range Of Motion, Decreased Strength, Functional Mobility Impairment Treatment Interventions: Education, Joint Mobility, Strengthening, Functional Mobility Training Plan for next visit: Bed mobility, Family instruction, Gait training, Exercise instruction/handout, Sit to Stand Transfers, Stairs training, Walker Training Home Environment Patient Lives With: Spouse Assistance Available: 24-Hour (for 2 weeks) Entry To Home: Stairs, With Rail Number Of Stairs Into Home: 4 Number Of Stairs To Bed/Bath: 0 Tub/Shower Type: tub shower Laundry: spouse can complete Equipment Owned: Walker- Wheeled, Shower Chair, Elevated Toilet Seat, Crutch(es), Cane, ADL Kit (3 wheeled walker, adjustable bed) Prior Functional Level: Within Functional Limits Prior Functional Level Comments: I with ADLs - uses shower chair and long shoe horn. No AD for ambulation. I with IADLs. Driving Patient Report: Patient reports she is not planning on going home this evening CURRENT FUNCTIONAL STATUS: Most recent performance Current Functional Mobility Assist Level Additional Information Rolling Supine to Sit Stand By Assistance Sit to Supine Stand By Assistance Scooting Stand By Assistance Sit to Stand Stand By Assistance, Additional Information vc for safe hand placement Stand to Sit Stand By Assistance, Additional Information vc for safe hand placement Bed to Chair Minimal Assistance Bed To Chair Transfer Type: Stepping Bed To Chair Transfer Equipment: Wheeled Walker Toilet/Commode Stand By Assistance Gait Contact Guard Assistance Gait Device: Wheeled Walker Gait Distance (feet): 30' Stairs Curb Step Car Transfer Blank marquez indicate activity not attempted Gait Deviations Right Lower Extremity: Step length decreased, Heel strike during initial stance decreased, Push off during terminal stance decreased, Stance time decreased, Weight bearing decreased Gait Deviations Left Lower Extremity: Step length decreased General Deviations/Observations : Antalgic gait, Marichuy decreased -HLM: 7: Walk 25 feet or more Learning/Educational Needs: Discharge Plan, Family Education/Training, Functional Activities/Mobility, Pain Management, Plan of Care, Precautions, Rehabilitation Techniques and Procedures, Safety Goals for Plan of Care: Goals: Patient will demonstrate progress with functional mobility to allow safe discharge to home with available support and/or physical assistance. Ambulate Up and Down Steps with: Stand By Assistance Number of Steps: 4 Device: Cane, Rail Rehab Potential: Good Patient will be discontinued from Physical Therapy when no further skilled needs are identified in this setting. PLAN: PT Frequency: Once daily Plan of Care developed with: Patient, Family TREATMENT INTERVENTIONS: Therapy Diagnosis: Reduced mobility-other, Unsteadiness on feet Interventions Provided: Evaluation, Therapeutic Exercise (11266), Gait Training (67871) $ Evaluation-Moderate (53226) Billed Units: 1 unit Therapeutic Exercise (91738) Treatment Minutes: 20 $ Therapeutic Exercise (11386) Billed Units: 1 unit Gait Training (82916) Treatment Minutes: 15 $ Gait Training (67099) Billed Units: 1 unit Training AND (more content not included)... [facility] TYPE + SCREENon 11-18-2022 ABO O [facility] Comment on above: Order Comment: Speci men Type: BLOOD SPECIMEN [facility] Address: [address] [place] [id number] Performed By: #### T SCR #### [facility] CLIA [id number] [address] [place] [address] [address] HISTORICAL AB SCR STATUS Negative [facility] Comment on above: Order Comment: Speci men Type: BLOOD SPECIMEN [facility] Address: [address] [place] [address] Performed By: #### T SCR #### [facility] CLIA [id number] [address] [place] [address] Rh Nom (Bld) Positive [facility] Comment on above: Order Comment: Speci men Type: BLOOD SPECIMEN [facility] Address: [address] [place] [address] Performed By: #### T SCR #### [facility] CLIA [id number] [address] [place] [address] TYPE AND SCREEN EXPIRATION 11/21/2022 23:59 [facility] Comment on above: Order Comment: Speci men Type: BLOOD SPECIMEN [facility] Address: [address] [place] [address] Performed By: #### T SCR #### [facility] CLIA [id number] [address] [place] [address] CBC W Auto Differential pane l (Bld)on 11-01-2022 Basophils (Bld) [#/Vol] <0.11 k/uL [facility] Basophils/100 WBC (Bld) 0.4 % [facility] Differential cell count method Nom (Bld) Auto [facility] Eosinophils (Bld) [#/Vol] 0.15 10*3/uL <0.46 k/uL [facility] Eosinophils/100 WBC (Bld) 3.3 % [facility] Erythrocyte distribution width (RBC) [Ratio] 16.4 % High 11.5 - 15.0 % [facility] Hematocrit (Bld) [Volume fraction] 34.8 % Low 36.0 - 46.0 % [facility] Hemoglobin (Bld) [Mass/Vol] 11.7 g/dL 11.5 - 15.5 g/dL [facility] Immature granulocytes (Bld) [#/Vol] <0.10 k/uL [facility] Immature granulocytes/100 WBC (Bld) 0.2 % [facility] Lymphocytes (Bld) [#/Vol] 1.23 10*3/uL 1.00 - 4.00 k/uL [facility] Lymphocytes/100 WBC (Bld) 27.2 % [facility] MCH (RBC) [Entitic mass] 30.3 pg 26.0 - 34.0 pg [facility] MCHC (RBC) [Mass/Vol] 33.6 g/dL 30.5 - 36.0 g/dL [facility] MCV (RBC) [Entitic vol] 90.2 fL 80.0 - 100.0 fL [facility] Monocytes (Bld) [#/Vol] 0.44 10*3/uL <0.87 k/uL [facility] Monocytes/100 WBC (Bld) 9.7 % [facility] Neutrophils (Bld) [#/Vol] 2.68 10*3/uL 1.45 - 7.50 k/uL [facility] Neutrophils/100 WBC (Bld) 59.2 % [facility] Nucleated RBC (Bld) [#/Vol] <0.01 k/uL [facility] Nucleated RBC/100 WBC (Bld) [Ratio] 0.0 /100 WBC [facility] Platelet mean volume (Bld) [Entitic vol] 9.3 fL 9.0 - 12.7 fL [facility] Platelets (Bld) [#/Vol] 245 10*3/uL 150 - 400 k/uL [facility] RBC (Bld) [#/Vol] 3.86 10*6/uL Low 3.90 - 5.2 0 m/uL [facility] WBC (Bld) [#/Vol] 4.53 10*3/uL 3.70 - 11. 00 k/uL [facility] Comprehensive metabolic 2000 panelon 11-01-2022 Albumin [Mass/Vol] 4.5 g/dL 3.9 - 4.9 g/dL [facility] ALP [Catalytic activity/Vol] 92 U/L 34 - 123 U/L [facility] ALT [Catalytic activity/Vol] 21 U/L 7 - 38 U/L [facility] Anion gap [Moles/Vol] 12 mmol/L 9 - 18 mmol/L [facility] AST [Catalytic activity/Vol] 24 U/L 13 - 35 U/L [facility] Bilirubin [Mass/Vol] 0.2 mg/dL 0.2 - 1 .3 mg/dL [facility] Calcium [Mass/Vol] 9.1 mg/dL 8.5 - 10. 2 mg/dL [facility] Chloride [Moles/Vol] 103 mmol/L 97 - 10 5 mmol/L [facility] CO2 [Moles/Vol] 26 mmol/L 22 - 30 mmol/L [facility] Creatinine [Mass/Vol] 0.52 mg/dL Low 0.58 - 0.96 mg/dL [facility] Estimated Glomerular Filtration Rate 107 mL/min/1.73m >=60 mL/min/1.73m [facility] Glucose [Mass/Vol] 91 mg/dL 74 - 99 mg/dL [facility] Potassium [Moles/Vol] 3.7 mmol/L 3.7 - 5.1 mmol/L [facility] Protein [Mass/Vol] 6.7 g/dL 6.3 - 8.0 g/dL [facility] Sodium [Moles/Vol] 141 mmol/L 136 - 144 mmol/L [facility] Urea nitrogen [Mass/Vol] 8 mg/dL 7 - 21 mg/dL [facility] FERRITIN BLDon 11-01-2022 Ferritin [Mass/Vol] 555.0 ng/mL High 14.7 - 2 05.1 ng/mL [facility] Iron and Iron binding capaci ty panelon 11-01-2022 Iron [Mass/Vol] 89 ug/dL 41 - 186 ug/dL [facility] Iron binding capacity [Mass/Vol] 240 ug/dL 232 - 386 ug/dL [facility] Iron/TIBC [Molar ratio] 37.1 % 15.0 - 57.0 % [facility] TYPE AND SCREEN,30 DAYon ABO O [facility] HIstorical Ab Scr Status Negative [facility] Rh Nom (Bld) Positive [facility] XR Pelvis and Hip - right AP and Lateral frogon 10-02-2022 IMPRESSION: Status post total right hip replacement with no radiographic evidence of hardware complications Data Collector: VIVIANA Transcribe Date/Time: Oct 02 2022 9:47A Dictated by : SUSHIL CUMMINGS MD This examination was interpreted and the report reviewed and electronically signed by: SUSHIL CUMMINGS MD on Oct 02 2022 9:48AM EST DIVISION OF RADIOLOGY * * *Final Report* * * DATE OF EXAM: Oct 01 2022 2:26PM WOX 5352 - XR HIP 3V PELV+ AP/LAT RT / PROCEDURE REASON: Primary osteoarthritis of right hip * * * * Physician Interpretation * * * * TITLE: XR HIP 3V PELV+ AP/LAT RT CLINICAL HISTORY: Primary osteoarthritis of right hip TECHNIQUE: AP radiograph of the pelvis and AP/frog leg lateral radiographs of the right hip COMPARISON: Pelvic radiograph dated June 18, 2022 FINDINGS: Status post total right hip arthroplasty with no radiographic evidence of hardware complications. No acute fracture or dislocation. Interval resolution of previously noted postoperative right-sided subcutaneous emphysema. Bilateral tubal ligation clips present. DIVISION OF RADIOLOGY Provider, [facility] - 10/02/2022 * * *Final Report* * * DATE OF EXAM: Oct 01 2022 2:26PM WOX 5352 - XR HIP 3V PELV+ AP/LAT RT / PROCEDURE REASON: Primary osteoarthritis of right hip * * * * Physician Interpretation * * * * TITLE: XR HIP 3V PELV+ AP/LAT RT CLINICAL HISTORY: Primary osteoarthritis of right hip TECHNIQUE: AP radiograph of the pelvis and AP/frog leg lateral radiographs of the right hip COMPARISON: Pelvic radiograph dated June 18, 2022 FINDINGS: Status post total right hip arthroplasty with no radiographic evidence of hardware complications. No acute fracture or dislocation. Interval resolution of previously noted postoperative right-sided subcutaneous emphysema. Bilateral tubal ligation clips present. IMPRESSION IMPRESSION: Status post total right hip replacement with no radiographic evidence of hardware complications Data Collector: PSCB Transcribe Date/Time: Oct 02 2022 9:47A Dictated by : SUSHIL CUMMINGS MD This examination was interpreted and the report reviewed and electronically signed by: SUSHIL CUMMINGS MD on Oct 02 2022 9:48AM EST [facility] XR Pelvis and Hip - right AP and Lateral frogOrdered By: [facility] Provider on 10-02-2022 [facility] XR Pelvis and Hip - right AP and Lateral frogon 10-01-2022 Radiology Study observation (narrative) [facility] Absolute lymphocyte counton 09-10-2022 Lymphocytes Auto (Unsp spec) [#/Vol] 4.26 10*3/uL 0.83-4.51 [facility] Work Phone: Basophil percentageon 2021 Basophils/100 WBC (Bld) 0.4 % 0-1 [facility] Work Phone: [phone] Bilirubin [Mass/Vol] 0.30 mg/dL 0.20-1.00 [facility] Work Phone: Comment on above: For patients on eltr ombopag therapy, use of Dimension [place] TBIL is not recommended. Chloride [Moles/Vol] 101 mmol/L 98-107 [facility] Work Phone: [phone] Eosinophils/100 WBC (Bld) 0.5 % 0-5 [facility] Work Phone: [phone] Glucose [Mass/Vol] 92 mg/dL 74-106 [facility] Work Phone: [phone] Neutrophils (Bld) [#/Vol] 6.1 10*3/uL 2.0-7.7 [facility] Work Phone: [phone] Neutrophils/100 WBC (Bld) 54.1 % 47-70 [facility] Work Phone: [phone] Potassium [Moles/Vol] 3.4 mmol/L 3.5-5.1 [facility] Work Phone: [phone] Protein [Mass/Vol] 8.1 g/dL 6.4-8.2 [facility] Work Phone: Sodium [Moles/Vol] 137 mmol/L 136-145 [facility] Work Phone: [phone] WBC (Bld) [#/Vol] 11.3 10*3/uL 4.4-11.0 [facility] Work Phone: [phone] Blood erythrocytes count (nu mber/volume)on 09-10-2022 RBC (Bld) [#/Vol] 4.53 10*6/uL 4.2-5.4 [facility] Work Phone: Blood hemoglobin measurement (mass/volume)on 09-10-2022 Hemoglobin (Bld) [Mass/Vol] 13.1 g/dL 12.0-15.0 [facility] Work Phone: Blood lymphocytes/100 leukoc yteson 09-10-2022 Lymphocytes/100 WBC (Bld) 37.7 % 19-41 [facility] Work Phone: Blood monocytes/100 leukocyt eson 09-10-2022 Monocytes/100 WBC (Bld) 6.8 % 0-10 [facility] Work Phone: Blood platelet mean volumeon 09-10-2022 Platelet mean volume (Bld) [Entitic vol] 9.3 fL 6.2-12.0 [facility] Work Phone: Determination of erythrocyte mean corpuscular volume (MCV)on 09-10-2022 MCV (RBC) [Entitic vol] 89.4 fL 81-99 [facility] Work Phone: Hematocrit Auto (Bld) [Volum e fraction]on 09-10-2022 Hematocrit (Bld) [Volume fraction] 40.5 % 37-47 [facility] Work Phone: Laboratory - Chemistry and C hemistry - challengeon 09-10-2022 ALP [Catalytic activity/Vol] 106 U/L 45-117 [facility] Work Phone: ALT [Catalytic activity/Vol] 33 U/L 13-56 [facility] Work Phone: CO2 [Moles/Vol] 29.0 mmol/L 21.0-32.0 [facility] Work Phone: Globulin (S) [Mass/Vol] 4.2 g/dL 2.2-4.2 [facility] Work Phone: Urea nitrogen/Creatinine [Mass ratio] 22.7 mg/mg 10-20 [facility] Work Phone: Laboratory - Hematology and Cell countson 09-10-2022 Erythrocyte distribution width (RBC) [Entitic vol] 51.5 fL 35.1-43.9 [facility] Work Phone: Erythrocyte distribution width (RBC) [Ratio] 15.9 % 11.6-14.6 [facility] Work Phone: Immature granulocytes/100 WBC (Bld) 0.500 % 0.0-0.9 [facility] Work Phone: Comment on above: IG% - Immature Granu locytes (promyelocytes, myelocytes and metamyelocytes) > 1% indicates that a LEFT SHIFT is Present. MCH (RBC) [Entitic mass] 28.9 pg 27.0-32.0 [facility] Work Phone: Nucleated RBC/100 WBC (Bld) [Ratio] 0 % 0-5 [facility] Work Phone: MCHC Auto (RBC) [Mass/Vol]on 09-10-2022 MCHC (RBC) [Mass/Vol] 32.3 g/dL 32-36 [facility] Work Phone: No Panel Informationon 09-10 D-Dimer Quantitative (PE/DVT) 2.72 FEU/ug/m 0.27-0.49 [facility] Work Phone: Comment on above: D-Dimer ELEVATED (>0 .49): Additional studies and clinicalassessments are indicated to conclude diagnosis of:Deep Vein Thrombosis (DVT) or Pulmonary Embolism (PE) Estimated Creatinine Clearance Calc 95.63 ml/min [facility] Work Phone: Estimated GFR (MDRD) Amer 139 mL/min >60 [facility] Work Phone: Comment on above: GFR Calc Estimated GFR (MDRD) Non-Af Amer 115 mL/min >60 [facility] Work Phone: Comment on above: Non- GFR Calc Platelets bldon 09-10-2022 Platelets (Bld) [#/Vol] 405 10*3/uL 150-450 [facility] Work Phone: Serum or plasma albumin elsie urement (mass/volume)on 09-10-2022 Albumin [Mass/Vol] 3.9 g/dL 3.2-5.0 [facility] Work Phone: Serum or plasma albumin/glob ulin mass ratioon 09-10-2022 Albumin/Globulin [Mass ratio] 0.9 {ratio} 0.9-2.4 [facility] Work Phone: Serum or plasma calcium elsie urement (mass/volume)on 09-10-2022 Calcium [Mass/Vol] 9.5 mg/dL 8.5-10.1 [facility] Work Phone: Serum or plasma creatinine m easurement (mass/volume)on 09-10-2022 Creatinine [Mass/Vol] 0.57 mg/dL 0.55-1.02 [facility] Work Phone: Comment on above: The validity of the calculated GFR & GFRAA in patients over 70 years has not been determined. Clinical correlation is essential. Serum or plasma urea nitroge n measurement (mass/volume)on 09-10-2022 Urea nitrogen [Mass/Vol] 13 mg/dL 7-18 [facility] Work Phone: Thin prep Papanicolaou smear with manual screeningon 09-10-2022 Thin prep Papanicolaou smear with manual screening 17 U/L 15-37 [facility] Work Phone: Thin prep Papanicolaou smear with manual screening 7 5-15 [facility] Work Phone: Absolute lymphocyte counton 09-06-2022 Lymphocytes Auto (Unsp spec) [#/Vol] 1.23 10*3/uL 0.83-4.51 [facility] Work Phone: Basophil percentageon 2021 Basophils/100 WBC (Bld) 0.2 % 0-1 [facility] Work Phone: Chloride [Moles/Vol] 107 mmol/L 98-107 [facility] Work Phone: Eosinophils/100 WBC (Bld) 0.2 % 0-5 [facility] Work Phone: Glucose [Mass/Vol] 112 mg/dL 74-106 [facility] Work Phone: [phone] Comment on above: Fasting Glucose resu lt from 100 to 125 mg/dL suggests IMPAIRED HOMEOSTASIS per A.D.A. criteria. Neutrophils (Bld) [#/Vol] 2.5 10*3/uL 2.0-7.7 [facility] Work Phone: Neutrophils/100 WBC (Bld) 59.5 % 47-70 [facility] Work Phone: Potassium [Moles/Vol] 3.9 mmol/L 3.5-5.1 [facility] Work Phone: Sodium [Moles/Vol] 140 mmol/L 136-145 [facility] Work Phone: WBC (Bld) [#/Vol] 4.3 10*3/uL 4.4-11.0 [facility] Work Phone: Blood erythrocytes count (nu mber/volume)on 09-06-2022 RBC (Bld) [#/Vol] 3.94 10*6/uL 4.2-5.4 [facility] Work Phone: Blood hemoglobin measurement (mass/volume)on 09-06-2022 Hemoglobin (Bld) [Mass/Vol] 11.3 g/dL 12.0-15.0 [facility] Work Phone: [phone] Blood lymphocytes/100 leukoc yteson 09-06-2022 Lymphocytes/100 WBC (Bld) 28.9 % 19-41 [facility] Work Phone: [phone] Blood monocytes/100 leukocyt eson 09-06-2022 Monocytes/100 WBC (Bld) 11.0 % 0-10 [facility] Work Phone: Blood platelet mean volumeon 09-06-2022 Platelet mean volume (Bld) [Entitic vol] 8.9 fL 6.2-12.0 [facility] Work Phone: Determination of erythrocyte mean corpuscular volume (MCV)on 09-06-2022 MCV (RBC) [Entitic vol] 89.6 fL 81-99 [facility] Work Phone: Hematocrit Auto (Bld) [Volum e fraction]on 09-06-2022 Hematocrit (Bld) [Volume fraction] 35.3 % 37-47 [facility] Work Phone: Laboratory - Chemistry and C hemistry - challengeon 09-06-2022 CO2 [Moles/Vol] 30.0 mmol/L 21.0-32.0 [facility] Work Phone: Magnesium [Mass/Vol] 2.5 mg/dL 1.6-2.6 [facility] Work Phone: Natriuretic peptide B (Bld) [Mass/Vol] 29.4 pg/mL 0-100 [facility] Work Phone: Urea nitrogen/Creatinine [Mass ratio] 19.7 mg/mg 10-20 [facility] Work Phone: Laboratory - Hematology and Cell countson 09-06-2022 Erythrocyte distribution width (RBC) [Entitic vol] 50.8 fL 35.1-43.9 [facility] Work Phone: Erythrocyte distribution width (RBC) [Ratio] 15.7 % 11.6-14.6 [facility] Work Phone: Immature granulocytes/100 WBC (Bld) 0.200 % 0.0-0.9 [facility] Work Phone: Comment on above: IG% - Immature Granu locytes (promyelocytes, myelocytes and metamyelocytes) > 1% indicates that a LEFT SHIFT is Present. MCH (RBC) [Entitic mass] 28.7 pg 27.0-32.0 [facility] Work Phone: Nucleated RBC/100 WBC (Bld) [Ratio] 0 % 0-5 [facility] Work Phone: MCHC Auto (RBC) [Mass/Vol]on 09-06-2022 MCHC (RBC) [Mass/Vol] 32.0 g/dL 32-36 [facility] Work Phone: No Panel Informationon 09-06 D-Dimer Quantitative (PE/DVT) 2.75 FEU/ug/m 0.27-0.49 [facility] Work Phone: Comment on above: D-Dimer ELEVATED (>0 .49): Additional studies and clinicalassessments are indicated to conclude diagnosis of:Deep Vein Thrombosis (DVT) or Pulmonary Embolism (PE)CRITICAL VALUE VERIFIED. CALLED TO PARISH DIAZ RN (ED)09/06/22 0662 Ceasar Mroan.RESULTS READ BACK BY SAME . Estimated Creatinine Clearance Calc 106.87 ml/min [facility] Work Phone: Estimated GFR (MDRD) Amer 160 mL/min >60 [facility] Work Phone: Comment on above: GFR Calc Estimated GFR (MDRD) Non-Af Amer 132 mL/min >60 [facility] Work Phone: Comment on above: Non- GFR Calc Troponin I High Sensitivity 4 pg/mL 3.0-54.0 [facility] Work Phone: Comment on above: Please Note: New Ivanna t Units and Gender Specific Reference Ranges. For more information see Policy Stat Procedure [place] High Sensitivity Troponin (TNIH) and attachments. Platelets bldon 09-06-2022 Platelets (Bld) [#/Vol] 310 10*3/uL 150-450 [facility] Work Phone: Serum or plasma calcium elsie urement (mass/volume)on 09-06-2022 Calcium [Mass/Vol] 9.3 mg/dL 8.5-10.1 [facility] Work Phone: Serum or plasma creatinine m easurement (mass/volume)on 12-16-2022 Creatinine [Mass/Vol] 0.51 mg/dL 0.55-1.02 [facility] Work Phone: Comment on above: The validity of the calculated GFR & GFRAA in patients over 70 years has not been determined. Clinical correlation is essential. Serum or plasma urea nitroge n measurement (mass/volume)on 09-06-2022 Urea nitrogen [Mass/Vol] 10 mg/dL 7-18 [facility] Work Phone: Thin prep Papanicolaou smear with manual screeningon 09-06-2022 Thin prep Papanicolaou smear with manual screening 3 5-15 [facility] Work Phone: C-REACTIVE PROTEIN (CRP)on 1 10-29-2021 CRP [Mass/Vol] 2.7 mg/dL High <0.9 mg/dL [facility] CBC W Auto Differential pane l (Bld)on 08-28-2022 Basophils (Bld) [#/Vol] 0.04 10*3/uL <0.11 k/uL [facility] Basophils/100 WBC (Bld) 0.5 % [facility] Differential cell count method Nom (Bld) Auto [facility] Eosinophils (Bld) [#/Vol] 0.14 10*3/uL <0.46 k/uL [facility] Eosinophils/100 WBC (Bld) 1.6 % [facility] Erythrocyte distribution width (RBC) [Ratio] 15.9 % High 11.5 - 15.0 % [facility] Hematocrit (Bld) [Volume fraction] 37.2 % 36.0 - 46.0 % [facility] Hemoglobin (Bld) [Mass/Vol] 11.8 g/dL 11.5 - 15.5 g/dL [facility] Immature granulocytes (Bld) [#/Vol] 0.08 10*3/uL <0.10 k/uL [facility] Immature granulocytes/100 WBC (Bld) 0.9 % [facility] Lymphocytes (Bld) [#/Vol] 1.93 10*3/uL 1.00 - 4.00 k/uL [facility] Lymphocytes/100 WBC (Bld) 21.8 % [facility] MCH (RBC) [Entitic mass] 29.1 pg 26.0 - 34.0 pg [facility] MCHC (RBC) [Mass/Vol] 31.7 g/dL 30.5 - 36.0 g/dL [facility] MCV (RBC) [Entitic vol] 91.9 fL 80.0 - 100.0 fL [facility] Monocytes (Bld) [#/Vol] 0.66 10*3/uL <0.87 k/uL [facility] Monocytes/100 WBC (Bld) 7.5 % [facility] Neutrophils (Bld) [#/Vol] 5.99 10*3/uL 1.45 - 7.50 k/uL [facility] Neutrophils/100 WBC (Bld) 67.7 % [facility] Nucleated RBC (Bld) [#/Vol] <0.01 k/uL [facility] Nucleated RBC/100 WBC (Bld) [Ratio] 0.0 /100 WBC [facility] Platelet mean volume (Bld) [Entitic vol] 9.8 fL 9.0 - 12.7 fL [facility] Platelets (Bld) [#/Vol] 409 10*3/uL High 150 - 400 k/uL [facility] RBC (Bld) [#/Vol] 4.05 10*6/uL 3.90 - 5.2 0 m/uL [facility] WBC (Bld) [#/Vol] 8.84 10*3/uL 3.70 - 11. 00 k/uL [facility] Comprehensive metabolic 2000 panelon 08-28-2022 Albumin [Mass/Vol] 4.4 g/dL 3.9 - 4.9 g/dL [facility] ALP [Catalytic activity/Vol] 138 U/L High 34 - 123 U/L [facility] ALT [Catalytic activity/Vol] 22 U/L 7 - 38 U/L [facility] Anion gap [Moles/Vol] 10 mmol/L 9 - 18 mmol/L [facility] AST [Catalytic activity/Vol] 24 U/L 13 - 35 U/L [facility] Bilirubin [Mass/Vol] Low 0.2 - 1 .3 mg/dL [facility] Calcium [Mass/Vol] 10.1 mg/dL 8.5 - 10. 2 mg/dL [facility] Chloride [Moles/Vol] 103 mmol/L 97 - 10 5 mmol/L [facility] CO2 [Moles/Vol] 27 mmol/L 22 - 30 mmol/L [facility] Creatinine [Mass/Vol] 0.57 mg/dL Low 0.58 - 0.96 mg/dL [facility] Estimated Glomerular Filtration Rate 105 mL/min/1.73m >=60 mL/min/1.73m [facility] Glucose [Mass/Vol] 84 mg/dL 74 - 99 mg/dL [facility] Potassium [Moles/Vol] 5.2 mmol/L High 3.7 - 5.1 mmol/L [facility] Protein [Mass/Vol] 8.1 g/dL High 6.3 - 8.0 g/dL [facility] Sodium [Moles/Vol] 140 mmol/L 136 - 144 mmol/L [facility] Urea nitrogen [Mass/Vol] 12 mg/dL 7 - 21 mg/dL [facility] ESR Westergren method (Bld) [Velocity]on 08-28-2022 ESR (Bld) [Velocity] 65 mm/h High 0 - 20 mm/hr [facility] LIPID PANEL, NONFASTINGon Cholesterol [Mass/Vol] 221 mg/dL High <200 mg/dL [facility] HDL Cholesterol, Nonfasting 75 mg/dL >39 mg/dL [facility] LDL Cholesterol, Nonfasting 123 mg/dL High <100 mg/dL [facility] LDL/HDL Ratio, Nonfasting 1.64 mg/dL <2.54 mg/dL [facility] Non HDL Cholesterol, Nonfasting 146 mg/dL High <130 mg/dL [facility] Total Chol/HDL Ratio, Nonfasting 2.95 mg/dL <5.10 mg/dL [facility] Triglycerides, Nonfasting 113 mg/dL <150 mg/dL [facility] VLDL Cholesterol, Nonfasting 23 mg/dL <30 mg/dL [facility] BLOOD TB SCREEN, INCUBATEDon 08-13-2022 M. tuberculosis tuberculin stim IFN-g Ql (Bld) Negative Normal [facility] Comment on above: Order Comment: Speci men Type: BLOOD SPECIMEN Ordering Facility: [facility] Address: [address] [place] [phone] Performed By: #### I NTPGP #### [facility] CLIA [id number] [address] [place] [address] [id number], [place] [address] [place] MITOGEN MINUS NIL 7.02 IU/mL Normal >=0.[address] [facility] Comment on above: Order Comment: Speci joseph Type: BLOOD SPECIMEN Ordering Facility: [facility] Address: [address] [place] [address] Performed By: #### I NTPGP #### [facility] CLIA [id number] [address] TB GAMMA INTERPRETATION Infection with M. tuberculosis complex is unlikely. If latent tuberculosis infection is highly suspected, a negative result does not rule out the infection. Specimens from immunocompromised patients and those <5 years of age may show false negative results. In case of a contact investigation, please repeat 8-12 weeks after a known exposure. Normal [facility] Comment on above: Order Comment: Gaurii joseph Type: BLOOD SPECIMEN Ordering Facility: [facility] Address: [address] [place] [address] Performed By: #### I NTPGP #### [facility] CLIA [id number] [address] [place] [address] TB NIL 0.02 IU/mL Normal <=8.00 [facility] Comment on above: Order Comment: Gaurii joseph Type: BLOOD SPECIMEN Ordering Facility: [facility] Address: [address] [place] [address] Performed By: #### I NTPGP #### [facility] CLIA [id number] [facility] [address] [place] TB1 AG MINUS NIL 0.06 IU/mL Normal <0.35 [facility] Comment on above: Order Comment: Speci men Type: BLOOD SPECIMEN Ordering Facility: [facility] Address: [address] [place], [place] [address] Performed By: #### I NTPGP #### [facility] CLIA [id number] [address] [place] TB2 AG MINUS NIL 0.02 IU/mL Normal <0.35 [facility] Comment on above: Order Comment: Speci men Type: BLOOD SPECIMEN Ordering Facility: [facility] Address: [address] Performed By: #### I NTPGP #### [facility] CLIA [id number] [address] [facility] [id number] [address] [place] Basic metabolic 2000 panelon 06-19-2022 Anion gap [Moles/Vol] 4 mmol/L Low 9-18 [facility] Comment on above: Order Comment: Speci men Type: BLOOD SPECIMENOrdering Facility: [facility] Address: [address] Performed By: #### 2 4321-2 ####[facility] LABORATORYCLIA [id number] [place] [address] [place] Calcium [Mass/Vol] 8.4 mg/dL Low 8.5-10.2 [facility] Comment on above: Order Comment: Speci men Type: BLOOD SPECIMENOrdering Facility: [facility] Address: [address] [place] [address] Performed By: #### 2 4321-2 ####[facility] LABORATORYCLIA [id number] [place] [address] [place] Chloride [Moles/Vol] 108 mmol/L High 97-105 [facility] Comment on above: Order Comment: Speci men Type: BLOOD SPECIMENOrdering Facility: [facility] Address: [address] Performed By: #### 2 4321-2 ####[facility] LABORATORYCLIA [id number] [place] [id number] [place] CO2 [Moles/Vol] 28 mmol/L Normal 22-30 [facility] Comment on above: Order Comment: Speci men Type: BLOOD SPECIMENOrdering Facility: [facility] Address: [address] Performed By: #### 2 4321-2 ####[facility] LABORATORYCLIA [id number] [place] [id number] [place] Creatinine [Mass/Vol] 0.57 mg/dL Low 0.58-0.96 [facility] Comment on above: Order Comment: [facility] Type: BLOOD SPECIMENOrdering Facility: [facility] Address: [address] [place] [address] Performed By: #### 2 4321-2 ####[facility] LABORATORYCLIA [id number] [place] [id number] [facility] [place] ESTIMATED GLOMERULAR FILTRATION RATE 105 mL/min/1.73m??? Normal >=60 [facility] Comment on above: Order Comment: [facility] Type: BLOOD SPECIMENOrdering Facility: [facility] Address: [address] [place] [address] Result Comment: Leonarda mated Glomerular Filtration Rate (eGFR) is calculated using the 2020 CKD-EPI creatinine equation. This equation utilizes serum creatinine, sex, and age as parameters. The creatinine assay has traceable calibration to isotope dilution-mass spectrometry. Refer to KDIGO guidelines for clinical interpretation. In patients with unstable renal function, e.g. those with acute kidney injury, the eGFR may not accurately reflect actual GFR. Performed By: #### 2 4321-2 ####[facility] LABORATORYCLIA [id number] [place] [id number] [place] Glucose [Mass/Vol] 102 mg/dL High 74-99 [facility] Comment on above: Order Comment: Shahram ruiz Type: BLOOD SPECIMENOrdering Facility: [facility] Address: [address] [place] [address] Result Comment: The [place] [employer] (ADA) provides guidance for cutoff values for fasting glucose and random glucose. The ADA defines fasting as no caloric intake for at least 8 hours. Fasting plasma glucose results between 100 to 125 mg/dL indicate increased risk for diabetes (prediabetes). Fasting plasma glucose results greater than or equal to 126 mg/dL meet the criteria for diagnosis of diabetes. In the absence of unequivocal hyperglycemia, results should be confirmed by repeat testing. In a patient with classic symptoms of hyperglycemia or hyperglycemic crisis, random plasma glucose results greater than or equal to 200 mg/dL meet the criteria for diagnosis of diabetes. Reference: Standards of Medical Care in Diabetes 2016, [place] [employer]. Diabetes Care. 2016.39(Suppl 1). Performed By: #### 2 4321-2 ####[facility] LABORATORYCLIA [id number] [place] [address] [place] Potassium [Moles/Vol] 4.1 mmol/L Normal 3.7-5.1 [facility] Comment on above: Order Comment: Speci men Type: BLOOD SPECIMENOrdering Facility: [facility] Address: [address] [place] [address] Performed By: #### 2 4321-2 ####[facility] LABORATORYCLIA [id number] [address] STATES [facility] Sodium [Moles/Vol] 140 mmol/L Normal 136-144 [facility] Comment on above: Order Comment: Shahram ruiz Type: BLOOD SPECIMENOrdering Facility: [facility] Address: [address] [place] [address] Performed By: #### 2 4321-2 ####[facility] LABORATORYCLIA [id number] [address] [place] Urea nitrogen [Mass/Vol] 11 mg/dL Normal 7-21 [facility] Comment on above: Order Comment: Speci men Type: BLOOD SPECIMENOrdering Facility: [facility] Address: [address] [place] [address] Performed By: #### 2 4321-2 ####[facility] LABORATORYCLIA [id number] [place] [id number] [facility] CASE MANAGEMon 06-19-2022 CASE MANAGEM HNO ID: [id number] Author: Genoveva Colin RN Service: Care Management Author Type: Registered Nurse Type: Care Mgt Progress Note Filed: 06/19/2022 12:29 PM Note Text: CARE MANAGEMENT DISCHARGE NOTE SERVICE DATE: 06/19/2022 SERVICE TIME: 1225 LOS: 0 days Admission Date: 06/18/2022 DISCHARGE ARRANGEMENT (list agency and phone number) Discharge Arrangement: Home with Home Health Provider Name AND Phone: See Below CAREGIVER ASSESSMENT: Caregiver is ready, willing and able to meet the patient's needs as recommended by the inter-professional team:: Yes Patient's transition needs and plan for meeting these needs: To go home today with [facility] HANDOFF COMMUNICATION: Handoff to: Primary Care Physician TRANSPORTATION ARRANGEMENTS: Transportation Arrangements: Car ADDITIONAL CONTACT RESOURCES: Summary of Care Discharge Information Row Name Admission (Current) from 06/18/[address] [facility] Agency [facility] Start of Care 06/18/22 Patient to discharge home with her providing transportation. She has all DME for home. Prescriptions sent to [facility]. to provide home care. Summary of care sent to care team, PCP, [facility]. SIGNATURE: Genoveva Colin RN PATIENT NAME: Aury Metz DATE: June 19, 2022 TIME: 12:28 PM PAGER/CONTACT #: [phone] Normal [facility] CBC panel Auto (Bld)on 06-19 Erythrocyte distribution width (RBC) [Ratio] 14.8 % Normal 11.5-15.0 [facility] Comment on above: Order Comment: Speci men Type: BLOOD SPECIMENOrdering Facility: [facility] Address: [address] [place], [place] [address] Performed By: #### 5 8410-2 ####[facility] LABORATORYCLIA [id number] [place] [address] [place] Hematocrit (Bld) [Volume fraction] 28.0 % Low 36.0-46.0 [facility] Comment on above: Order Comment: Speci men Type: BLOOD SPECIMENOrdering Facility: [facility] Address: [address] [place] [phone] Performed By: #### 5 8410-2 ####[facility] LABORATORYCLIA [id number] [address] Hemoglobin (Bld) [Mass/Vol] 8.8 g/dL Low 11.5-15.5 [facility] Comment on above: Order Comment: Speci men Type: BLOOD SPECIMENOrdering Facility: [facility] Address: [address] [place] [address] Performed By: #### 5 8410-2 ####[facility] LABORATORYCLIA [id number] [address] MCH (RBC) [Entitic mass] 29.5 pg Normal 26.0-34.0 [facility] Comment on above: Order Comment: Speci men Type: BLOOD SPECIMENOrdering Facility: [facility] Address: [address] [place] [address] Performed By: #### 5 8410-2 ####[facility] LABORATORYCLIA [id number] [address] MCHC (RBC) [Mass/Vol] 31.4 g/dL Normal 30.5-36.0 [facility] Comment on above: Order Comment: Speci men Type: BLOOD SPECIMENOrdering Facility: [facility] Address: [address] [place] [address] Performed By: #### 5 8410-2 ####[facility] LABORATORYCLIA [id number] [address] [place] [facility] MCV (RBC) [Entitic vol] 94.0 fL Normal 80.0-100.0 [facility] Comment on above: Order Comment: Speci men Type: BLOOD SPECIMENOrdering Facility: [facility] Address: [address] [place] [address] Performed By: #### 5 8410-2 ####[facility] LABORATORYCLIA [id number] [address] Nucleated RBC (Bld) [#/Vol] 10*3/uL Normal <0.01 [facility] Comment on above: Order Comment: Speci men Type: BLOOD SPECIMENOrdering Facility: [facility] Address: [address] [place] [address] Performed By: #### 5 8410-2 ####[facility] LABORATORYCLIA [id number] [address] [place] [address] [place] Platelet mean volume (Bld) [Entitic vol] 9.5 fL Normal 9.0-12.7 [facility] Comment on above: Order Comment: Speci men Type: BLOOD SPECIMENOrdering Facility: [facility] Address: [address] [place] [address] Performed By: #### 5 8410-2 ####[facility] LABORATORYCLIA [id number] [place] [address] [place] Platelets (Bld) [#/Vol] 295 10*3/uL Normal 150-400 [facility] Comment on above: Order Comment: Speci men Type: BLOOD SPECIMENOrdering Facility: [facility] Address: [address] [place] [address] Performed By: #### 5 8410-2 ####[facility] LABORATORYCLIA [id number] [place] [address] [place] RBC (Bld) [#/Vol] 2.98 10*6/uL Low 3.90-5.20 [facility] Comment on above: Order Comment: Speci men Type: BLOOD SPECIMENOrdering Facility: [facility] Address: [address] [place], [place] [address] Performed By: #### 5 8410-2 ####DRU[facility] LABORATORYCLIA [id number] [place] [address] [place] WBC (Bld) [#/Vol] 8.25 10*3/uL Normal 3.70-11.00 [facility] Comment on above: Order Comment: Speci men Type: BLOOD SPECIMENOrdering Facility: [facility] Address: [address] [place] [address] [id number] Performed By: #### 5 [id number] ####[facility] [id number] [address] THERAPY NTon 06-19-2022 THERAPY NT HNO ID: [id number] Author: Lexa Burnette, PT Service: Physical Therapy Author Type: Physical Therapist Type: Therapy (PT/OT/Speech/Resp) Filed: 06/19/2022 11:49 AM Note Text: Physical Therapy Evaluation SERVICE DATE: 06/19/2022 SERVICE TIME: 1103 to 1143 ROOM: [place] [address] Recommended Discharge Disposition: Home PT Recommended Discharge Disposition Comments: Pt safe and ready to d/c home today with PRN A from and Home PT. Anticipated Discharge Needs: Physical Assist at Home Physical Assist at Home for: Cleaning;Laundry;Meals; Shopping;Transportation Recommended Discharge Equipment: Associate Entertainment Editor PT 6 Clicks Score: 23 Precautions/Activity Restrictions: Total Hip Replacement;Weight Bearing Restrictions Extremity With Weight Bearing Restricted: Right Lower Extremity Right Lower Extremity Weight Bearing Status: WBAT Total Hip Replacement Precautions: Posterior Current Hospital Course: s/p R DEANN on 06/18 Reason for Hospital Admission: R DEANN due to OA Relevant Past Medical History: asthma, NIKO, HLD, GERD, hypothyroidism, anemia, RA, bronchitis, R TK Response to Therapy Interventions: Good participation in activities, Improved tolerance for activity, Notable progression with functional activities/skills, On-track to achieve discharge goals, Pain, Requires additional time to complete activities Continue skilled needs due to: Functional mobility/skill impairments Physical Therapy Problem List: Pain;Decreased Activity Tolerance;Decreased Range Of Motion;Decreased Strength;Functional Mobility Impairment;Balance Impaired Treatment Interventions: Education;Joint Mobility;Strengthening; Functional Mobility Training;Balance Training;Pain Management Plan for next visit: Bed mobility, Gait training, Exercise instruction/handout Home Environment Patient Lives With: Spouse Assistance Available: 24 Hour (2 wks spouse is home) Entry To Home: Stairs;With Rail Number Of Stairs Into Home: 4 Number Of Stairs To Bed/Bath: 0 Tub/Shower Type: tub shower Laundry: spouse can complete Equipment Owned: Wheeled Walker;Shower Chair;Elevated Toilet Seat;Crutch(es);Cane;Woody nd Held Shower Prior Functional Level: Within Functional Limits;Required Assistance;History of Falls Assistance Required With: Cleaning;Laundry;Shoppi ng;Transportation;Meals Prior Functional Level Comments: IND ADLs, one fall recently, wall/furniture walks, does not go in community d/t limited mobility/L knee pain, spouse manages most IADLs, drives, works FT Patient Report: Pt reported feeling safe and ready to d/c home today CURRENT FUNCTIONAL STATUS: Most recent performance Current Functional Mobility Assist Level Additional Information Rolling Supine to Sit Supervision;Additional Information Sit to Supine Supervision;Additional Information Used BUE to assist RLE into bed Scooting Supervision Sit to Stand Supervision . Stand to Sit Supervision;Additional Information VC to get UE back to control descent Bed to Chair Supervision Bed To Chair Transfer Type: Stepping Bed To Chair Transfer Equipment: Wheeled Walker Toilet/Commode Gait Supervision;Additional Information Gait Device: Wheeled Walker Gait Distance (feet): 265 ft Pt initially used step to pattern but progressed to reciprocal pattern, however L step length still smaller. Pt would not fully extend R knee in stance phase. Steady throughout with VC to address above deficits. Stairs Contact Guard Assistance;Supervision; Additional Information Stairs Device: Rail;Crutch(es) Number of Stairs: 3 (x2) CGA prog to sup. VC for proper crutch use. Educated pt on ascending stairs leading with stronger (non-surgical) LE and descending leading with weaker (surgical) LE. Curb Step Car Transfer Blank marquez indicate activity not attempted Gait Deviations Right Lower Extremity: Weight bearing decreased;Stance time decreased;Step length decreased;Knee flexion during stance increased Gait Deviations Left Lower Extremity: Step length decreased General Deviations/Observations : Antalgic gait;Marichuy decreased;Step length decreased;UE weight bearing on assistive device excessive Exercise Ankle Pumps (number of reps): 10 Quad Sets (number of reps): 10 Glut Sets (number of reps): 10 Heel Slides (number of reps): 10 SAQ (number of reps): 10 LAQ (number of reps): 10 Knee Flexion Stretch (number of reps): 10 Balance: Dynamic Sitting;Dynamic Standing Dynamic Sitting Balance: Normal Patient accepts maximal challenge and can shift weight easily within full range in all directions Dynamic Standing Balance: Fair Patient accepts minimal challenge, able to maintain balance while turning head/trunk -HLM: 8: Walk 250 feet or more Learning/Educational Needs: Discharge Plan;Equipment;Function al Activities/Mobility;Yolette n Management;Plan of Care;Precautions;Rehabi litation Techniques and Procedures;Safety Goals for Plan of Care: Patient /Caregiver Go (more content not included)... [facility] THERAPY NT HNO ID: [id number] Author: Christine Martinez, OT/L Service: Occupational Therapy Author Type: Occupational Therapist Type: Therapy (PT/OT/Speech/Resp) Filed: 06/19/2022 11:14 AM Note Text: Occupational Therapy Evaluation SERVICE DATE: 06/19/2022 SERVICE TIME: 913 to 1019 ROOM: [place] [address] Recommended Discharge Disposition: Home OT Recommended Discharge Disposition Comments: Recommend HH OT and increased family assist in order to return to [facility] Anticipated Discharge Needs: Physical Assist at Home Physical Assist at Home for: Cleaning;Laundry;Meals; Shopping;Transportation Recommended Discharge Equipment: No equipment needs anticipated Pt cleared for d/c home from OT standpoint once medically cleared. Pt has 24/7 assist for 2 weeks and PRN thereafter. Recommended pt purchase ADL kit to increase functional independence. Pt has all other needed equipment. Pt able to verbalize and demonstrate all precautions and use of AE for LB ADLs with modified technique. Discontinue OT services. OT 6 Clicks Score: 23 Precautions/Activity Restrictions: Total Hip Replacement;Weight Bearing Restrictions Extremity With Weight Bearing Restricted: Right Lower Extremity Right Lower Extremity Weight Bearing Status: WBAT Total Hip Replacement Precautions: Posterior Current Hospital Course: s/p R DEANN on 06/18 Reason for Hospital Admission: R DEANN due to OA Relevant Past Medical History: asthma, NIKO, HLD, GERD, hypothyroidism, anemia, RA, bronchitis, R TK Response to Therapy Interventions: Good participation in activities Occupational Therapy Problem List: Education Deficit;Pain;Impaired Self Care;Decreased Activity Tolerance;Decreased Range Of Motion;Decreased Strength;Functional Mobility Impairment;Balance Impaired Treatment Interventions: Education;Self Care / Home Management;Functional Mobility Training Home Environment Patient Lives With: Spouse Assistance Available: 24 Hour (2 wks spouse is home) Entry To Home: Stairs;With Rail Number Of Stairs Into Home: 4 Number Of Stairs To Bed/Bath: 0 Tub/Shower Type: tub shower Laundry: spouse can complete Equipment Owned: Wheeled Walker;Shower Chair;Elevated Toilet Seat;Crutch(es);Cane;Woody nd Held Shower Prior Functional Level: Within Functional Limits;Required Assistance;History of Falls Assistance Required With: Cleaning;Laundry;Shoppi ng;Transportation;Meals Prior Functional Level Comments: IND ADLs, one fall recently, wall/furniture walks, does not go in community d/t limited mobility/L knee pain, spouse manages most IADLs, drives, works FT Patient Report: I don't know why I've been dizzy or nauseous, that doesn't happen usually CURRENT FUNCTIONAL STATUS: Most recent performance Current Activities of Daily Living Assist Level Additional Information Feeding Independent Grooming Stand By Assistance Bathing Upper Body Set Up Bathing Lower Body Minimal Assistance Dressing Upper Body Set Up Dressing Lower Body Stand By Assistance Toileting Stand By Assistance Instrumental Activities of Daily Living Assist Level Additional Information Meal/Beverage Prep Cleaning Laundry Medication Management with Strategies Functional Mobility Assist Level Additional Information Rolling Supine to Sit Modified Independent Sit to Supine Scooting Stand By Assistance (VC for hip flexion) Sit to Stand Contact Guard Assistance Stand to Sit Contact Guard Assistance Bed to Chair Contact Guard Assistance Stepping Wheeled Walker Toilet/Commode Contact Guard Assistance Shower Functional Mobility Contact Guard Assistance Wheeled Walker Blank marquez indicate activity not attempted Learning/Educational Needs: Discharge Plan;Equipment;Function al Activities/Mobility;Sharee n of Care;Precautions;Safety ;Self Care Goals for Plan of Care: Patient /Caregiver Goals: Go Home Goals: Patient will demonstrate progress with self-care, cognitive and/or coping needs identified to allow safe discharge to home with available support and/or physical assistance. Progress Toward Goals: Progressing as expected Rehab Potential: Excellent Patient will be discontinued from Occupational Therapy when no further skilled needs are identified in this setting. PLAN: OT Frequency: Discontinue therapy services Reasons Therapy Services Discontinued: Goals met Plan of Care developed with: Patient TREATMENT INTERVENTIONS: Therapy Diagnosis: Decreased activities of daily living (ADL);Reduced mobility-other;Unsteadi ness on feet;Muscle Weakness (generalized);Difficult y walking-musculoskeletal Interventions Provided: Evaluation;Self Retirement Management (54421) $ Evaluation-Low (48463) Billed Units: 1 unit Self Retirement Management (89661) Treatment Minutes: 51 $ Self Retirement Management (97906) Billed Units: 3 units Training AND education provided in: Activity adaption / compensatory strategies, Adaptive equipment / DME, Assistive device use, Bed mobili (more content not included)... [facility] ALLIED HEALTHon 06-18-2022 ALLIED HEALTH HNO ID: [id number] Author: RT Yolanda(R) Service: Radiology Author Type: Technologist Type: Allied Health Filed: 06/18/2022 12:28 PM Note Text: Radiology Service Progress Note PATIENT NAME: Auyr Metz DATE OF SERVICE: June 18, 2022 TIME: 12:27 PM PATIENT IDENTITY VERIFICATION COMPLETED USING TWO (2) IDENTIFIERS: Name and Date of confirmed by patient verbally and Name and Date of confirmed by identification band. FALL SCREENING: Has the patient had 2 falls in the last year or 1 fall with injury or currently using an Ambulatory Assistive Device (Walker, Cane, Wheelchair, Crutches, etc.)? Inpatient: Screened on floor PATIENT GENDER DATA: Female. status: : No status: NO. PATIENT RELEVANT IMPLANT DATA REVIEWED: Not Applicable RADIOLOGY DEPARTMENT: General X-ray: Exam(s) Completed: Pelvis X-Ray: Pelvis General AP PERIPHERAL IV DATA: Not applicable SIGNED BY: RT Yolanda(R) June 18, 2022 12:27 PM [facility]ES POSTPROC EVAL HNO ID: [id number] Author: Afshin Villatoro MD Service: Anesthesiology Author Type: Anesthesiologist Type: Anesthesia Postprocedure Evaluation Filed: 06/18/2022 2:16 PM Note Text: POST ANESTHESIA EVALUATION NOTE : 1965 Procedure Summary Date: 06/18/22 Room / Location: [place] [address] / OR Anesthesia Start: 944 Anesthesia Stop: 1209 Procedure: ARTHROPLASTY REPLACE JOINT TOTAL HIP (Right: Hip) Diagnosis: Primary osteoarthritis of right hip (Primary osteoarthritis of right hip [M16.11]) Surgeons: Anival Ambriz MD Responsible Provider: Afshin Villatoro MD Anesthesia Type: spinal ASA Status: 3 Anesthesia Type: spinal Last Vitals Vitals Value Taken Time BP 103/58 06/18/22 1340 Temp 36 ?C (96.8 ?F) 06/18/22 1208 HR SpO2 81 06/18/22 1208 Resp 18 06/18/22 1340 SpO2 99 % 06/18/22 1340 Post Anesthesia Patient Status Patient Evaluation: PACU. PACU/ICU Patient Condition: stable. Anticipated Disposition: inpatient floor planned admission. Neurological Status: aware and responsive. Pulmonary Status: breathing comfortably on room air Airway Control: returned to baseline unsupported. Cardiovascular Status: stable. Pain Management: clinically adequate Postoperative Hydration: acceptable. Intraoperative Events: no significant anesthesia events Post Operative Nausea/Vomiting Status: no significant post operative nausea or vomiting Anesthetic Observations: Recommendation: continue current plan of care. Anesthesia Observations No Documentation SIGNATURE: Afshin Villatoro MD PATIENT NAME: Aury Metz DATE: June 18, 2022 TIME: 2:16 PM CSN: [id number] [facility] ANES PRE-OPon 06-18-2022 ANES PRE-OP HNO ID: [id number] Author: Alexx Hdz MD Service: Anesthesiology Author Type: Anesthesiologist Type: Anesthesia Preprocedure Evaluation Filed: 06/18/2022 8:11 AM Note Text: ANESTHESIOLOGY DAY OF SURGERY NOTE : 1965 Procedure Information Date/Time: 06/18/22 0900 Procedure: ARTHROPLASTY REPLACE JOINT TOTAL HIP (Right: Hip) Location: [place] [address] / OR Surgeons: Anival Ambriz MD Estimated body mass index is 23.83 kg/m? as calculated from the following: Height as of 05/31/22: 166.4 cm (5' 5.5). Weight as of 06/13/22: 66 kg (145 lb 6.4 oz). Most recent hematocrit and potassium results: Hematocrit 32.6 05/31/2022 Potassium 3.9 05/31/2022 Relevant Problems ANESTHESIA (+) Moderate obstructive sleep apnea CARDIO (+) 1.1 Migraine without aura, not intractable [346.10] (+) 1.5.1 Chronic migraine [346.71] (+) Intractable migraine with aura without status migrainosus (+) Migraine, unspecified, with intractable migraine, so stated, without mention of status migrainosus ENDO (+) Hypothyroidism GI (+) Gastroesophageal reflux disease NEURO-PSYCH (+) 1.1 Migraine without aura, not intractable [346.10] (+) 1.5.1 Chronic migraine [346.71] (+) History of hypothyroidism (+) Intractable migraine with aura without status migrainosus (+) Migraine, unspecified, with intractable migraine, so stated, without mention of status migrainosus (+) Personal history of rheumatoid arthritis PULMONARY (+) Exercise-induced asthma (+) Moderate obstructive sleep apnea Other (+) Rheumatoid arthritis involving both knees with positive rheumatoid factor (HCC) (+) Rheumatoid arthritis of multiple sites without organ or system involvement with positive rheumatoid factor (HCC) I - PHYSICAL EVALUATION AIRWAY Patient intubated: No. Tracheostomy tube not present Mallampati: II. TM distance: >3 FB. Neck ROM: full ROM without neurological symptoms. Mouth opening: adequate. Short neck: no. Thick neck: no DENTAL Dental findings: missing tooth/teeth. II - ANESTHESIA PLAN ASA Score: 3 Anesthetic Plan: spinal NPO Status: adequate Monitoring plan: standard ASA. Postoperative analgesic plan: multimodal analgesia. Informed Consent Anesthetic risks, benefits, alternatives, personnel and consent discussed: yes. Patient / Responsible Democrat agrees to proceed: yes Patient / Surrogate agrees to blood products: Yes DNR status not reviewed with patient and/or family prior to surgery. Significant changes in the patient condition since the History and Physical, not otherwise documented in primary service progress note: no. Vitals Value Taken Time BP 121/64 06/18/22 0713 Pulse 83 06/18/22 0713 Resp 16 06/18/22 0713 Temp 36.5 ?C (97.7 ?F) 06/18/22 0713 SpO2 97 % 06/18/22 0713 Facility-Administered Medications as of 06/18/2022 Medication Dose Route Frequency - lidocaine 10 mg/mL (1 %) 1-2 mg injection (XYLOCAINE) 0.1-0.2 mL INTRADERMAL PRN - lactated ringers iv infusion 5-30 mL/hr INTRAVENOUS CONTINUOUS - vancomycin iv piggyback 1 g in D5W 200 mL (VANCOCIN) 1 g INTRAVENOUS Pre-Op Once - ciprofloxacin iv piggyback 400 mg in D5W 200 mL (CIPRO) 400 mg INTRAVENOUS Pre-Op Once - tranexamic acid (CYKLOKAPRON) in NaCl 0.7% 1,000 mg 100 mL 1,000 mg INTRAVENOUS Pre-Op Once - tranexamic acid (CYKLOKAPRON) in NaCl 0.7% 1,000 mg 100 mL 1,000 mg INTRAVENOUS ONCE - [COMPLETED] promethazine 12.5 mg tab(s) (PHENERGAN) 12.5 mg ORAL Pre-Op Once - [COMPLETED] acetaminophen 1,000 mg tab(s) (TYLENOL) 1,000 mg ORAL Pre-Op Once - celecoxib 200 mg cap(s) (CeleBREX) 200 mg ORAL Pre-Op Once - [COMPLETED] magnesium oxide 800 mg tab(s) (MAG-OX) 800 mg ORAL Pre-Op Once Outpatient Medications as of 06/18/2022 Medication Sig - celecoxib (CELEBREX) 200 mg capsule Take 1 capsule by mouth once daily. - omeprazole (PRILOSEC) 20 mg capsule Take 1 capsule by mouth once daily. - docusate sodium (COLACE) 100 mg capsule Take 1 capsule by mouth twice daily. - gabapentin (NEURONTIN) 100 mg capsule Take 3 capsules by mouth daily at bedtime. - folic acid 1 mg tablet Take 1 tablet by mouth once daily. - thyroid, pork, (ARMOUR THYROID) 60 mg Take 1 tablet by mouth once daily. - acetaminophen (TYLENOL EXTRA STRENGTH) 500 mg tablet Take 2 tablets by mouth every 6 hours as needed for pain for up to 30 doses. - Cetirizine (ZYRTEC) 10 mg cap Take 1 capsule by mouth as needed (allergies). - methotrexate sodium 25 mg/mL soln INJECT 0.6 ML SUBCUTANEOUSLY ONE TIME A WEEK. - Insulin Syringe-Needle U-100 0.3 mL 30 gauge x 5/16 syrg USE DIRECTED TO INJECT SUBCUTANEOUS METHOTREXATE ONCE WEEKLY - CPAP Pt with known NIKO confirmed by HSAT. AHI normalized with PAP. Has PAP device (Airsense 10 ([id number])). However, not receiving masks through current DME. Requests change. NIKO sx resolved with PAP. Please fit with Dreamwear under nose FFM (not pillows). Needs supplies. Lifetime supplies. Please (more content not included)... [facility] BRIEF OP NOTon 06-18-2022 BRIEF OP NOT HNO ID: [id number] Author: Prem Leach MD Service: Orthopaedic Surgery Author Type: Resident Type: Brief Op Note Filed: 06/18/2022 12:04 PM Note Text: BRIEF OPERATIVE / PROCEDURE NOTE LOG ID: [id number] Surgery/Procedure Date: 06/18/2022 Incision/Procedure Start Time: 10:32 AM Incision Close/Procedure End Time: 11:59 AM Surgeon(s)/Proceduralis t(s) and Stereo Plotter Operator(s): Surgeon(s) and Role: * Anival Ambriz MD - Primary * Prem Leach MD - Resident - Assisting Physician Stereo Plotter Operator: Alhaji Francois PA-C; Shahzad Singletary PA-C Procedure(s): Procedure(s) (LRB): ARTHROPLASTY REPLACE JOINT TOTAL HIP (Right) 50 cup, 12 h/o stem, 36+0 head Anesthesia: Choice - Anesthesia Consult Peripheral Block Type: AMEE Approach: Median parapatellar Findings: DJD Estimated Blood Loss: 150 mls Specimens: Femoral head and synovial tissue for pathology Complications: None Pre-Op/Pre-Procedure Diagnosis: Primary osteoarthritis of right hip [M16.11] Post-Op/Post-Procedure Diagnosis: Primary osteoarthritis of right hip [M16.11] Weight Bearing Status: Weight Bearing As Tolerated SIGNATURE: Prem Leach MD PATIENT NAME: Aury Metz DATE: June 18, 2022 TIME: 12:02 PM [facility] [id number] Author: Genoveva Colin RN Service: Care Management Author Type: Registered Nurse Type: Care Mgt Initial Assessment Filed: 06/18/2022 2:48 PM Note Text: CARE MANAGEMENT: ASSESSMENT AND DISCHARGE PLAN SERVICE DATE: June 18, 2022 SERVICE TIME: 1415 PRIMARY CARE PHYSICIAN: Timbo Bright MD Primary Contact: Extended Emergency Contact Information Primary Emergency Contact: Luc Metz Address: [facility] [place] [address] Relation: Spouse ADMISSION STATUS: Ambulatory Surgery Insurance Provider: [facility] CHOICE PLUS NEEDS PRIOR TO DISCHARGE Needs Prior to Discharge: OT/PT Evaluation;Home Care Order;Facility or Agency Choices;Discharge Prescriptions POTENTIAL TRANSITION PLANS Home;Home OT/PT Based on clinical judgement, Care Management will address the following needs: Functional Patient's perception of need for this admission: To have THR ADVANCE DIRECTIVES Current Advance Directive: Health Care 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;Living Will In Chart: No MS/BEHAVIOR Baseline Mental Status Prior to this Illness what was the patient's Baseline Mental Status?: Alert AND Oriented Prior to this illness, has anyone described the patient having any of the following behaviors?: Not Applicable Relationship of the informant to the patient:: Self READMISSION Last Discharge Date: 07/03/21 Is this Within the Past 30 days? 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 scores in the EMR?: Yes Situation: At risk for falls d/t postop status Recommendation: To call for for assistance Any potential risks related to substance abuse and/or behavioral health?: No Based on clinical judgement, Care Management will address the following needs: Functional CAREGIVER ASSESSMENT Caregiver is ready, willing and able to meet the patient's needs as recommended by the inter-professional team:: Yes Name of Caregiver: Spouse Patient's transition needs and plan for meeting these needs: To go home w/ [facility] once all goals have been met FUNCTIONAL Services/Needs//Equipme nt Does Patient Currently Receive Any Community Services or Home Care?: None Equipment Prior to Admission: Walker;Elevated toilet seat;Cane Has the Patient Been in a [facility] Facility in the Past 30 days?: No No medical discharge barriers identified at this time. No social discharge barriers identified at this time. No behavioral/cognitive discharge barriers identified at this time. FREEDOM OF CHOICE EXPLAINED: [place] of Choice Given: Yes Level of Care Discussed: Home Care Financial Disclosure Provided: Yes Financial Disclosure Comments: [facility] affiliate Provider list within the patient's requested geographic area shared with the patient/family: No Quality and resource use metrics shared with the patient that are relevant to the patient's goals of care and treatment preferences:: Yes Metrics: Functional Status;Potentially Preventable 30-day Post Discharge Readmission Rates;Skin Integrity Reason: Declined Are you interested in bedside delivery of your medications? Yes ASSESSMENT AND PLAN: Patient assessed at this time. She lives with her and he will be transporting home. She has all DME (Walker, Cane, Elevated toilet seat). [facility] referral placed with [facility]. Plan is to discharge home today when all goals are met. Scripts sent to [facility]. She has no other needs. SIGNATURE: Genoveva Colin RN PATIENT NAME: Aury Metz DATE: June 18, 2022 TIME: 2:45 PM CONTACT #: [phone] [facility] CONSULTon 06-18-2022 CONSULT HNO ID: [id number] Author: Radha Farooq MD Service: General Internal Medicine Author Type: Physician Type: Consults Filed: 06/18/2022 3:46 PM Note Text: INTERNAL MEDICINE CONSULT HISTORY AND PHYSICAL PLEASE DO NOT REMOVE FROM THE CHART OR MODIFY PRINTED COPY Patient Name: Aury Metz PRIMARY CARE PHYSICIAN: Timbo Bright MD CONSULTING PHYSICIAN: Anival Ambriz MD MD DATE of CONSULT: 3:43 PM HPI: This is a 57 year old female who presents with ARTHROPLASTY REPLACE JOINT TOTAL HIP (Right. Pt seen denied cp/ sob no weakness. No urgency or frequency . No weakness . No palpition . No weakness . No fever or chills PAST MEDICAL HISTORY: PAST MEDICAL HISTORY Diagnosis Date Bronchitis, not specified as acute or chronic Dizziness and giddiness Esophageal reflux 10/27/2006 High cholesterol Migraine, unspecified, with intractable migraine, so stated, without mention of status migrainosus Palpitations 06/08/07 Stress echo at [facility] and EF% is 61. RA (rheumatoid arthritis) ([facility]ER[facility]) Rheumatoid arthritis(714.0) 05/02/2011 PAST SURGICAL HISTORY: PAST SURGICAL HISTORY Procedure Laterality Date ESOPHAGOSCOPY FLEX BALLOON DILAT <30 MM DIAM 2001 2005 Esophageal dilatation LAPS ABD PRTMANDOMENTUM DX W/WO SPEC BR/WA SPX Laparoscopy LIG/TRNSXJ FLP TUBE ABDL/VAG APPR UNI/BI Tubal ligation TOTAL KNEE REPLACEMENT Right 07/02/2021 FAMILY HISTORY: FAMILY HISTORY Problem Relation Age of Onset Heart Mother murmur COPD Mother other (High Cholesterol) Mother other (vocal cord paralysis ) Mother Hypertension Father Arthritis Maternal Grandmother RA Diabetes Brother Rheumatologic disease Brother Heart Brother Heart Brother mi Diabetes Brother Lipids Sister Breast Cancer Son 18 people on Mom's side of family other (hodgkin) Son SOCIAL HISTORY: Social History Tobacco Use Smoking status: Never Smokeless tobacco: Never Vaping Use Vaping Use: Never used Substance Use Topics Alcohol use: No Drug use: No ALLERGIES: ALLERGIES Allergen Reactions Cephalexin Anaphylaxis, Other: See Comments Throat swelling. Has tolerated augmentin 850mg as op after this episode Aciphex [Rabeprazol* Other: See Comments Chest pain Bactrim [Sulfametho* Swelling eyes swell Carafate [Sucralfat* Vomiting Darvocet-N 100 [Pro* Other: See Comments dizzy severe pain in head Erythromycin Vomiting Iodinated Contrast * Shortness of Breath Vancomycin Itching Scalp itchy PRIOR TO ADMISSION MEDICATIONS: mupirocin (BACTROBAN) 2 % ointment, Apply 0.5 inch with cotton swab (Q-tip) to each nostril in the morning and evening for 5 days prior to and including day of surgery., Disp: 22 g, Rfl: 0, 06/18/2022 celecoxib (CELEBREX) 200 mg capsule, Take 1 capsule by mouth once daily., Disp: 90 capsule, Rfl: 1, Past Week omeprazole (PRILOSEC) 20 mg capsule, Take 1 capsule by mouth once daily., Disp: 30 capsule, Rfl: 2, Past Week docusate sodium (COLACE) 100 mg capsule, Take 1 capsule by mouth twice daily., Disp: 60 capsule, Rfl: 2, Past Week gabapentin (NEURONTIN) 100 mg capsule, Take 3 capsules by mouth daily at bedtime., Disp: 270 capsule, Rfl: 3, Past Week folic acid 1 mg tablet, Take 1 tablet by mouth once daily., Disp: 90 tablet, Rfl: 3, Past Week thyroid, pork, (ARMOUR THYROID) 60 mg, Take 1 tablet by mouth once daily., Disp: 90 tablet, Rfl: 1, 06/18/2022 at 0400 acetaminophen (TYLENOL EXTRA STRENGTH) 500 mg tablet, Take 2 tablets by mouth every 6 hours as needed for pain for up to 30 doses., Disp: 60 tablet, Rfl: 0, 06/17/2022 Cetirizine (ZYRTEC) 10 mg cap, Take 1 capsule by mouth as needed (allergies). , Disp: , Rfl: , Past Week methotrexate sodium 25 mg/mL soln, INJECT 0.6 ML SUBCUTANEOUSLY ONE TIME A WEEK., Disp: 4 mL, Rfl: 3 Insulin Syringe-Needle U-100 0.3 mL 30 gauge x 5/16 syrg, USE DIRECTED TO INJECT SUBCUTANEOUS METHOTREXATE ONCE WEEKLY, Disp: 50 Each, Rfl: 1, Unknown CPAP, Pt with known NIKO confirmed by HSAT. AHI normalized with PAP. Has PAP device (Airsense 10 ([id number])). However, not receiving masks through current DME. Requests change. NIKO sx resolved with PAP. Please fit with Dreamwear under nose FFM (not pillows). Needs supplies. Lifetime supplies. Please provide us download in 4 weeks., Disp: 1 Each, Rfl: 999 CPAP, Initiate Auto PAP @ 5-20 cm of water with humidification. Mask (per patient preference) optional chin strap (if indicated) , filters, tubing, humidifier and lifetime supplies., Disp: 1 Each, Rfl: 0 REVIEW OF SYSTEMS: GENERAL: No weight loss, malaise or fevers HEENT: Negative for frequent or significant headaches, No changes in hearing or vision, no nose bleeds or other nasal problems NECK: Negative for lumps, goiter, pain and significant neck swelling RESPIRATORY: Negative for cough, hemoptysis, wheezing, COPD, dyspnea or shortness of breath CARDIOVASCULAR: Negative for chest (more content not included)... [facility] OPERATIVE NOon 06-18-2022 OPERATIVE NO HNO ID: [id number] Author: Anival Ambriz MD Service: Orthopaedic Surgery Author Type: Physician Type: Operative Report Filed: 06/18/2022 12:16 PM Note Text: OPERATIVE/PROCEDURE REPORT LOG ID: [id number] Surgery/Procedure Date: 06/18/2022 Incision/Procedure Start Time: 10:32 AM Incision Close/Procedure End Time: 11:59 AM Surgeon(s) and Stereo Plotter Operator(s): Surgeon(s) and Role: * Anival Ambriz MD - Primary * Prem Leach MD - Resident - Assisting Physician Stereo Plotter Operator: Alhaji Francois PA-C; Shahzad Singletary PA-C Anesthesia: Choice - Anesthesia Consult Preop Diagnosis: Pre-Op Diagnosis Codes: * Primary osteoarthritis of right hip [M16.11] Postop Diagnosis: Pre-Op Diagnosis Codes: * Primary osteoarthritis of right hip [M16.11] Procedure(s): Procedure(s) (LRB): ARTHROPLASTY REPLACE JOINT TOTAL HIP (Right) Implants: Implant Name Type Inv. Item Serial No. Extrusion Press Operator Lot No. LRB No. Used Action Model No. SHELL G7 50MM D OFFSET HEMISPHERE OSSEOTI ACETABULAR 3 HOLE LIMIT HIP - [id number] Joint - Hip SHELL G7 50MM D OFFSET HEMISPHERE OSSEOTI ACETABULAR 3 HOLE LIMIT HIP [employer] [id number] Right 1 Implanted [id number] SCREW G7 6.5MM DOME 15MM ACETABULAR LOW PROFILE HIP - [id number] Screw SCREW G7 6.5MM DOME 15MM ACETABULAR LOW PROFILE HIP [employer] [id number] Right 1 Implanted [id number] SCREW G7 6.5MM DOME 20MM ACETABULAR LOW PROFILE HIP - [id number] Screw SCREW G7 6.5MM DOME 20MM ACETABULAR LOW PROFILE HIP [employer] [id number] Right 1 Implanted [id number] LINER ACETABULAR SIZE D [id number] HIP LONGEVITY NEUTRAL G7 Implant [employer] [id number] Right 1 Implanted [id number] STEM TAPERLOC 133D 12 HIGH OFFSET REDUCE DISTAL TAPER PPS 144MM FEMORAL - [id number] Joint - Hip STEM TAPERLOC 133D 12 HIGH OFFSET REDUCE DISTAL TAPER PPS 144MM FEMORAL [employer] [id number] Right 1 Implanted [id number] BIOLOX DELTA MODULAR CERAMIC HEAD 36MM NECK TYPE 1 TAPER STD Implant [employer] [id number] Right 1 Implanted [id number] Problem List: ACTIVE PROBLEM LIST Awareness of Heartbeats Migraine, Unspecified, With Intractable Migraine, So Stated, Without Mention of Status Migrainosus Gastroesophageal Reflux Disease Anemia Emotional Lability 1.1 Migraine without aura, not intractable [346.10] Intractable Migraine With Aura Without Status Migrainosus 1.5.1 Chronic migraine [346.71] Rheumatoid Arthritis of Multiple Sites Without Organ Or System Involvement With Positive Rheumatoid Factor (Hcc) Drug Allergy Allergy to Sulfa Drugs Rash and Nonspecific Skin Eruption Hypothyroidism Moderate Obstructive Sleep Apnea Acute Pain of Both Knees Knee Joint Stiffness, Bilateral Difficulty Walking Hip Stiffness, Unspecified Laterality Right Lumbar Radiculitis Lumbar Spondylosis Chronic Right-Sided Low Back Pain With Right-Sided Sciatica Rheumatoid Arthritis Involving Both Knees With Positive Rheumatoid Factor (Hcc) Exercise-Induced Asthma Status Post Knee Replacement Raynaud Phenomenon Calcific Tendinitis of Right Shoulder Cervical Radiculopathy Disorder of Acromioclavicular Joint Personal History of Rheumatoid Arthritis History of Hypothyroidism Fibromyalgia 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 Mindy (Iron Deficiency Anemia) Findings: Eburnated femoral head and periacetabular osteophytes Specimens: Femoral head and synovium OPERATIVE INDICATIONS: This patient was seen in the office and found to have intractable right hip pain with imaging showing evidence advanced degenerative changes. They exhausted non-operative management with a combination of meds, activity modification, and home exercise program. These were no longer providing the relief they desired. The risks, benefits and alternatives to that were discussed at length with the patient. A shared decision was made. Complications discussed included but were not limited to leg length discrepancy, dislocation, fracture, infection, blood clots, and medical complications. PROCEDURE: The patient was brought to the hospital where they were taken to the operating room and transferred to the operating room table. A huddle was perfomed with the patient's participation to confirm name, date of , surgery/surgery site, and allergies. Perioperative antibiotics were confirmed. They underwent anesthesia. They were placed in the lateral decubitus position, operative hip up. All bony prominences were padded appropriately. An axillary roll was placed. The leg was prepped and draped in the usual sterile fashion. Attention was turned to the right leg where an incision was made centered over the posterior aspect of his greater trochanter. Sharp dissection was carried down to the fascia. The fascia was incised in line with the skin incision. A Charnley retractor was placed. Care was taken not to place this on the sciatic nerve. At this point leg lengths were checked. An EKG lead had bee (more content not included)... Normal [facility] SURGICAL PATHOLOGYon 022 CASE REPORT [facility] Comment on above: Order Comment: Speci men Type: SPECIMEN FROM BONEOrdering Facility: [facility] Address: [address] [place] [address] Result Comment: Surg ica Pathology Report Case: [id number] Authorizing Provider: Anival Ambriz MD Collected: 06/18/2022 10:44 AM Ordering Location: [facility] Received: 06/18/2022 12:18 PM Operating Room Pathologist: Herman Rizzo MD Specimens: A) - FEMORAL HEAD RIGHT, Right Femoral Head B) - SYNOVIUM, Synovium from right hip Performed By: #### S ####[facility] LABCLIA [id number] [address] CLINICAL HISTORY [facility] Comment on above: Order Comment: Speci men Type: SPECIMEN FROM BONEOrdering Facility: [facility] Address: [address] [place] [address] Result Comment: Pre- op diagnosis: Primary osteoarthritis of right hip [M16.11] Performed By: #### S ####[facility] LABCLIA [id number] [address] FINAL DIAGNOSIS [facility] Comment on above: Order Comment: Speci men Type: SPECIMEN FROM BONEOrdering Facility: [facility] Address: [address] [place] [address] Result Comment: A. R ight femoral head, arthroplasty: - Mild degenerative joint disease with large subchondral cyst. - Chronic proliferative synovitis, consistent with the patient's history of rheumatoid arthritis. B. Right hip synovium, excision: - Chronic proliferative synovitis, consistent with the patient's history of rheumatoid arthritis. Performed By: #### S ####[facility] LABCLIA [id number] [address] FINAL PERFORMING LAB [facility] Comment on above: Order Comment: Speci men Type: SPECIMEN FROM BONEOrdering Facility: [facility] Address: [address] [place] [address] Result Comment: Diag nostic interpretation performed at [facility], [address] [place] [address] CLIA# [id number] Rougher Helper: Brayan Hill M.D. Performed By: #### S ####[facility] LABCLIA [id number] [address] STATES OF [facility] GROSS DESCRIPTION Normal [facility] Comment on above: Order Comment: Speci men Type: SPECIMEN FROM BONEOrdering Facility: [facility] Address: [address] [place] [id number] Result Comment: A. F EMORAL HEAD RIGHT Received in formalin labeled right femoral head is a femoral head with attached soft tissue and femoral neck that measures 6.1 x 4.8 x 4.4 cm. The articular surface is smooth to roughened with no definitive areas of erosion or eburnation grossly present. A minimal amount of osteophyte formation is present along the periphery. The specimen is cut with a bandsaw to reveal two subchondral cysts that range from 1.0 to 1.8 cm greatest dimension. The articular cartilage ranges from 0.1 to 0.2 cm in greatest dimension. Brake Lining Finisher sections are submitted in formalin as follows: A1 soft tissue, A2 weigh bearing aspect, A3 khd-hkqjhk-abarmff aspect (A2 and A3 submitted following decalcification). B. SYNOVIUM Received in formalin labeled synovium from right hip is an irregularly-shaped piece of pink hester soft tissue that measures 3.8 x 2.3 x 1.2 cm. The specimen is serially sectioned to the long axis to reveal pink hester to hester yellow cut surfaces. The cut surfaces consists of a focal area that is hester yellow measuring 0.9 x 0.7 x 0.4 cm. The remainder of the cut surfaces are pink hester with a slight polypoid configuration. The specimen is entirely submitted in formalin from edge to edge, on edge in cassettes B1-B3. KENNEDY/daniel 06/18/2022 Gross examination performed at [facility], [address] [place], [place] [id number] CLIA# [id number] Performed By: #### S ####[facility] LABCLIA [id number] [address] OF [place] THERAPY NTon 06-18-2022 THERAPY NT HNO ID: [id number] Author: Lexa Burnette PT Service: Physical Therapy Author Type: Physical Therapist Type: Therapy (PT/OT/Speech/Resp) Filed: 06/18/2022 4:33 PM Note Text: Physical Therapy Evaluation SERVICE DATE: 06/18/2022 SERVICE TIME: 1516 to 1612 ROOM: [place] [address] Recommended Discharge Disposition: Home PT Recommended Discharge Disposition Comments: Pt currently unsafe to ambulate due to orthostatic BP. Anticipate as BP improves pt will be safe to d/c after performing stairs with PT on 06/19. Anticipated Discharge Needs: Physical Assist at Home Physical Assist at Home for: Cleaning;Laundry;Shoppi ng;Transportation Recommended Discharge Equipment: Associate Entertainment Editor PT 6 Clicks Score: 19 Precautions/Activity Restrictions: Total Hip Replacement;Weight Bearing Restrictions Extremity With Weight Bearing Restricted: Right Lower Extremity Right Lower Extremity Weight Bearing Status: WBAT Total Hip Replacement Precautions: Posterior Current Hospital Course: s/p R DEANN on 06/18 Reason for Hospital Admission: R DEANN due to OA Relevant Past Medical History: asthma, NIKO, HLD, GERD, hypothyroidism, anemia, RA, bronchitis, R TK Response to Therapy Interventions: Good participation in activities, On-track to achieve discharge goals, Labile vital signs, Pain, Requires additional time to complete activities Assessment Comments: Pt mobility limited by orthostatic BP. Continue skilled needs due to: Functional mobility/skill impairments, Continued monitoring of vital signs during mobility required Physical Therapy Problem List: Pain;Decreased Activity Tolerance;Decreased Range Of Motion;Decreased Strength;Functional Mobility Impairment;Balance Impaired Treatment Interventions: Education;Joint Mobility;Strengthening; Functional Mobility Training;Balance Training;Pain Management Plan for next visit: Bed mobility, Gait training, Exercise instruction/handout Home Environment Patient Lives With: Spouse Assistance Available: 24 Hour ( off for 2 weeks, then tactical air control party) Entry To Home: Stairs;With Rail Number Of Stairs Into Home: 4 Number Of Stairs To Bed/Bath: 0 Tub/Shower Type: tub shower with shower chair Laundry: Spouse will complete Equipment Owned: Wheeled Walker;Shower Chair;Elevated Toilet Seat;Wheelchair;Crutch( es);Cane Prior Functional Level: Within Functional Limits Prior Functional Level Comments: Pt IND using no AD prior to surgery, except began to use crutches on uneven terrain. No falls. + drives. + works. Patient Report: Pt agreeable to PT CURRENT FUNCTIONAL STATUS: Most recent performance Current Functional Mobility Assist Level Additional Information Rolling Supine to Sit Supervision;Additional Information used sheet to A RLE Sit to Supine Moderate Assistance;Additional Information Pt was orthostatic becoming diaphoretic and required A to get back to supine Scooting Supervision Sit to Stand Contact Guard Assistance;Supervision; Additional Information CGA prog to sup Stand to Sit Supervision Bed to Chair Contact Guard Assistance Bed To Chair Transfer Type: Stepping Bed To Chair Transfer Equipment: Wheeled Walker Toilet/Commode CGA to [facility] Gait Stairs Curb Step Car Transfer Blank marquez indicate activity not attempted Pt reported no dizziness when sitting EOB, however once sitting on BSC pt began to get diaphoretic and BP was 89/43. Pt assisted back to bed by PT and bed placed in Trendelenburg. Range of Motion: WFL Except;ROM Limitation Comments ROM Limitation Comments: R hip limited by pain/precautions Strength: WFL Except;Strength Limitation Comments Strength Limitation Comments: R hip at least 2/5 (no MMT) Exercise Ankle Pumps (number of reps): 10 Quad Sets (number of reps): 10 Glut Sets (number of reps): 10 Heel Slides (number of reps): 10 SAQ (number of reps): 10 LAQ (number of reps): 10 Knee Flexion Stretch (number of reps): 10 Balance: Dynamic Sitting;Dynamic Standing Dynamic Sitting Balance: Normal Patient accepts maximal challenge and can shift weight easily within full range in all directions Dynamic Standing Balance: Fair Patient accepts minimal challenge, able to maintain balance while turning head/trunk JH-HLM: 4: Move to chair / commode Learning/Educational Needs: Discharge Plan;Equipment;Function al Activities/Mobility;Yolette n Management;Plan of Care;Precautions;Rehabi litation Techniques and Procedures;Safety Goals for Plan of Care: Patient /Caregiver Goals: Go Home Goals: Patient will demonstrate understanding of importance of mobility during hospital stay and resolve all functional needs identified.;Patient will demonstrate progress with functional mobility to allow safe discharge to home with available support and/or physical assistance.;Patient will demonstrate progress to optimize functional mobility, maximize activity tolerance and endurance to maximize function upon discharge. Progress Toward Goals: (more content not included)... [facility] XR PELVIS 1V APon 06-18-2022 XR PELVIS 1V AP * * *Final Report* * * DATE OF EXAM: Jun 18 2022 12:26PM LUX 5239 - XR PELVIS 1V AP / PROCEDURE REASON: Post-operative / post-procedure assessment, asymptomatic * * * * Physician Interpretation * * * * EXAM: XR PELVIS 1V AP HISTORY: Post-operative / post-procedure assessment, asymptomatic. Right DEANN. VIEWS: Portable AP pelvis at 1217 hrs. FINDINGS: Status post noncemented right total hip arthroplasty with acetabular screw. Alignment appears anatomical. Postsurgical soft tissue emphysema. Bilateral tubal ligation clips incidentally. IMPRESSION: Completed right total hip arthroplasty. Data Collector: [facility] Transcribe Date/Time: Jun 18 2022 12:34P Dictated by : Margaret CORDON MD This examination was interpreted and the report reviewed and electronically signed by: Margaret CORDON MD on Jun 18 2022 12:35PM EST [id number] [facility] XR SURGICAL COUNT -NBon 05-24 XR SURGICAL COUNT -NB * * *Final Report* * * DATE OF EXAM: Jun 18 2022 11:55AM KACI 5393 - XR SURGICAL COUNT -NB / PROCEDURE REASON: Broken drill bit Primary osteoarthritis of right hip * * * * Physician Interpretation * * * * History: Intraoperative image labeled #1, code Magda Findings/ impression: Intraoperative AP view of the right hip is labeled #1. Total hip arthroplasty is in place. No definite evidence of abnormal metallic fragment is seen. Note is made that this single AP view cannot rule out a foreign body superimposed on the prosthesis. Data Collector: [facility] Transcribe Date/Time: Jun 18 2022 11:58A Dictated by : ADRIEN GRIFFIN MD This examination was interpreted and the report reviewed and electronically signed by: ADRIEN GRIFFIN MD on Jun 18 2022 12:00PM EST [id number] [facility] CNDSon 06-17-2022 [facility] HNO ID: [id number] Author: Juan Daniel Elliott MD Service: Orthopaedic Surgery Author Type: Resident Type: Discharge Summary Filed: 06/19/2022 9:41 AM Note Text: Attestation signed by Anival Ambriz MD at 06/20/2022 8:47 AM I agree with the above summary as outlined above. Anival Ambriz MD ORTHOPEDIC SURGERY DISCHARGE SUMMARY ADMISSION DATE: 06/18/2022 DISCHARGE DATE: 06/19/2022 Attending Physician: Anival Ambriz MD, Surgeon Dr. Anival Ambriz MD Reason for Hospitalization: Pain control, Post-operative Antibiotics, Physical Therapy assessment, Procedure(s) (LRB): ARTHROPLASTY REPLACE JOINT TOTAL HIP (Right) Admitting Diagnosis: Primary osteoarthritis of right hip [M16.11] Discharge Diagnosis: Same as admit Additional Diagnoses: ACTIVE PROBLEM LIST Awareness of Heartbeats Migraine, Unspecified, With Intractable Migraine, So Stated, Without Mention of Status Migrainosus Gastroesophageal Reflux Disease Anemia Emotional Lability 1.1 Migraine without aura, not intractable [346.10] Intractable Migraine With Aura Without Status Migrainosus 1.5.1 Chronic migraine [346.71] Rheumatoid Arthritis of Multiple Sites Without Organ Or System Involvement With Positive Rheumatoid Factor (Hcc) Drug Allergy Allergy to Sulfa Drugs Rash and Nonspecific Skin Eruption Hypothyroidism Moderate Obstructive Sleep Apnea Acute Pain of Both Knees Knee Joint Stiffness, Bilateral Difficulty Walking Hip Stiffness, Unspecified Laterality Right Lumbar Radiculitis Lumbar Spondylosis Chronic Right-Sided Low Back Pain With Right-Sided Sciatica Rheumatoid Arthritis Involving Both Knees With Positive Rheumatoid Factor (Hcc) Exercise-Induced Asthma Status Post Knee Replacement Raynaud Phenomenon Calcific Tendinitis of Right Shoulder Cervical Radiculopathy Disorder of Acromioclavicular Joint Personal History of Rheumatoid Arthritis History of Hypothyroidism Fibromyalgia 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 Mindy (Iron Deficiency Anemia) Surgeries During Hospitalization: Procedure(s) (LRB): ARTHROPLASTY REPLACE JOINT TOTAL HIP (Right) on 06/18/2022 Procedures During Hospitalization: Choice - Anesthesia Consult anesthesia Consultations: Physical Therapy Case Management Hospital Course: The patient is a 57 year old female who came under the care of Dr. Anival Ambriz MD, Anival Ambriz MD for the problem of Primary osteoarthritis of right hip [M16.11]. It was determined she would benefit from surgery. The procedure, its risks, benefits, and potential complications were discussed in detail with the patient prior to surgery. Understanding of all topics was conveyed by the patient, and consent was given for surgery. The patient was {electively admitted to the Hospital on 06/18/2022. Surgery was scheduled and on 06/18/2022 she underwent Procedure(s) (LRB): ARTHROPLASTY REPLACE JOINT TOTAL HIP (Right) with: Choice - Anesthesia Consult anesthesia The procedure was tolerated well and she was sent to the post operative recovery room in stable condition, where she also did well. She was subsequently sent to her hospital room for postoperative management. Once on the floor her postoperative course was unremarkable and she did well. Her diet was advanced which she tolerated. Her pain was well controlled in a multi-modal fashion; this was eventually transitioned to oral medication alone prior to discharge. She worked with Physical and Occupational Therapy who recommended she be discharged to Home with Self Care. Her dressing remained clean dry and intact throughout her stay. She remained afebrile with stable vital signs throughout her stay. She was stable for discharge on POD#Day of Surgery . POD#: 1 Complete and comprehensive discharge instructions were provided to the patient as well as necessary prescriptions. The patient had no further questions and was advised to call with any questions, concerns, or problems. Hemodynamics: Patient was hemodynamically stable postoperatively. Relevant labs included: HB, HCT in the last 72 hours. CBC, Coags, BMP, Mg, Phos Hemoglobin (g/dL) Date Value 05/31/2022 10.8 (L) 03/19/2022 12.2 02/19/2022 11.6 Hematocrit (%) Date Value 05/31/2022 32.6 (L) 03/19/2022 36.3 02/19/2022 35.9 (L) Discharge Antibiotics: ANTIBIOTICS: Prior to surgery the patient was treated with antibiotics and continued with antibiotics 24 hours postoperatively Doxycycline 100mg twice daily for 6 weeks Transfers: PACU and then to the hospital surgical floor when PACU criteria was met. DVT Prophylaxis: DVT: Sequential Compression Devices and Aspirin to reduce risk of bleeding Pain Control: Intravenous pain medication and Oral narcotics Multimodal Complications: (more content not included)... Normal [facility] CBC W Auto Differential pane l (Bld)on 05-31-2022 Abs Immature Gran <0.10 k/uL [facility] Basophils (Bld) [#/Vol] <0.11 k/uL [facility] Basophils/100 WBC (Bld) 0.2 % [facility] Differential cell count method Nom (Bld) Auto [facility] Eosinophils (Bld) [#/Vol] 0.13 10*3/uL <0.46 k/uL [facility] Eosinophils/100 WBC (Bld) 1.5 % [facility] Erythrocyte distribution width (RBC) [Ratio] 13.9 % 11.5 - 15.0 % [facility] Hematocrit (Bld) [Volume fraction] 32.6 % Low 36.0 - 46.0 % [facility] Hemoglobin (Bld) [Mass/Vol] 10.8 g/dL Low 11.5 - 15.5 g/dL [facility] Immature Gran % 0.2 % [facility] Lymphocytes (Bld) [#/Vol] 2.16 10*3/uL 1.00 - 4.00 k/uL [facility] Lymphocytes/100 WBC (Bld) 24.7 % [facility] MCH (RBC) [Entitic mass] 29.7 pg 26.0 - 34.0 pg [facility] MCHC (RBC) [Mass/Vol] 33.1 g/dL 30.5 - 36.0 g/dL [facility] MCV (RBC) [Entitic vol] 89.6 fL 80.0 - 100.0 fL [facility] Monocytes (Bld) [#/Vol] 0.67 10*3/uL <0.87 k/uL [facility] Monocytes/100 WBC (Bld) 7.7 % [facility] Neutrophils (Bld) [#/Vol] 5.75 10*3/uL 1.45 - 7.50 k/uL [facility] Neutrophils/100 WBC (Bld) 65.7 % [facility] Nucleated RBC (Bld) [#/Vol] <0.01 k/uL [facility] Nucleated RBC/100 WBC (Bld) [Ratio] 0.0 /100 WBC [facility] Platelet mean volume (Bld) [Entitic vol] 9.3 fL 9.0 - 12.7 fL [facility] Platelets (Bld) [#/Vol] 433 10*3/uL High 150 - 400 k/uL [facility] RBC (Bld) [#/Vol] 3.64 10*6/uL Low 3.90 - 5.2 0 m/uL [facility] WBC (Bld) [#/Vol] 8.75 10*3/uL 3.70 - 11. 00 k/uL [facility] Comprehensive metabolic 2000 panelon 05-31-2022 Albumin [Mass/Vol] 4.1 g/dL 3.9 - 4.9 g/dL [facility] ALP [Catalytic activity/Vol] 140 U/L High 34 - 123 U/L [facility] ALT [Catalytic activity/Vol] 14 U/L 7 - 38 U/L [facility] Anion gap [Moles/Vol] 12 mmol/L 9 - 18 mmol/L [facility] AST [Catalytic activity/Vol] 18 U/L 13 - 35 U/L [facility] Bilirubin [Mass/Vol] 0.2 mg/dL 0.2 - 1 .3 mg/dL [facility] Calcium [Mass/Vol] 9.3 mg/dL 8.5 - 10. 2 mg/dL [facility] Chloride [Moles/Vol] 101 mmol/L 97 - 10 5 mmol/L [facility] CO2 [Moles/Vol] 25 mmol/L 22 - 30 mmol/L [facility] Creatinine [Mass/Vol] 0.54 mg/dL Low 0.58 - 0.96 mg/dL [facility] Estimated Glomerular Filtration Rate 106 mL/min/1.73m >=60 mL/min/1.73m [facility] Glucose [Mass/Vol] 91 mg/dL 74 - 99 mg/dL [facility] Potassium [Moles/Vol] 3.9 mmol/L 3.7 - 5.1 mmol/L [facility] Protein [Mass/Vol] 7.7 g/dL 6.3 - 8.0 g/dL [facility] Sodium [Moles/Vol] 138 mmol/L 136 - 144 mmol/L [facility] Urea nitrogen [Mass/Vol] 8 mg/dL 7 - 21 mg/dL [facility] XR KNEE GENERAL 4V AP BOTH/P A BOTH/LAT/MERC BILATERALon 05-06-2022 [facility] No Panel Informationon 02-19 [facility] XR Knee AP and Lateral and M erchantson 07-27-2021 IMPRESSION: NORMAL POSTOPERATIVE FINDINGS STATUS POST INTERVAL RIGHT KNEE ARTHROPLASTY Data Collector: VIVIANA Transcribe Date/Time: Jul 27 2021 11:19A Dictated by : BRAYAN CEDILLO MD This examination was interpreted and the report reviewed and electronically signed by: BRAYAN CEDILLO MD on Jul 27 2021 11:20AM [facility] * * *Final Report* * * DATE OF EXAM: Jul 27 2021 10:41AM CCX 5209 - XR KNEE 3V AP/LAT/MERCHANT RT / PROCEDURE REASON: Primary osteoarthritis of right knee * * * * Physician Interpretation * * * * HISTORY: Primary osteoarthritis of right knee . PT STS RIGHT KNEE POST OP TECHNIQUE: XR KNEE 3V AP/LAT/MERCHANT RT Laterality: RIGHT Number of different views (projections): 3 COMPARISON: 01/31/2021 RESULT: Interval postsurgical changes of right total knee arthroplasty with patellar resurfacing. Hardware in normal position without evidence of failure or loosening. Moderate joint effusion. No fractures. Moderate to marked medial compartment degenerative arthritis left knee. No other significant abnormality. DIVISION OF RADIOLOGY Provider, Fela Colton Chairez - 07/27/2021 * * *Final Report* * * DATE OF EXAM: Jul 27 2021 10:41AM CCX 5209 - XR KNEE 3V AP/LAT/MERCHANT RT / PROCEDURE REASON: Primary osteoarthritis of right knee * * * * Physician Interpretation * * * * HISTORY: Primary osteoarthritis of right knee . PT STS RIGHT KNEE POST OP TECHNIQUE: XR KNEE 3V AP/LAT/MERCHANT RT Laterality: RIGHT Number of different views (projections): 3 COMPARISON: 01/31/2021 RESULT: Interval postsurgical changes of right total knee arthroplasty with patellar resurfacing. Hardware in normal position without evidence of failure or loosening. Moderate joint effusion. No fractures. Moderate to marked medial compartment degenerative arthritis left knee. No other significant abnormality. IMPRESSION IMPRESSION: NORMAL POSTOPERATIVE FINDINGS STATUS POST INTERVAL RIGHT KNEE ARTHROPLASTY Data Collector: VIVIANA Transcribe Date/Time: Jul 27 2021 11:19A Dictated by : BRAYAN CEDILLO MD This examination was interpreted and the report reviewed and electronically signed by: BRAYAN CEDILLO MD on Jul 27 2021 11:20AM EST [facility] Radiology Study observation (narrative) [facility] XR Knee AP and Lateral and M erchantsOrdered By: [facility]cf Provider on 07-27-2021 [facility] AURY METZ ([id number]) 1965 F Date Time Provider Department 06/27/21 VARINDER SMYTH [facility] During your visit today, we recorded the following information about you: Allergies As of Date: 06/27/2021 Noted Allergy Reaction CEPHALEXIN 05/29/2005 10 - Anaphylaxis 14 - Other: See Comments Comments: Throat swelling. Has tolerated augmentin 850mg as op after this episode ACIPHEX (RABEPRAZOLE SODIUM) 07/23/2007 14 - Other: See Comments Comments: Chest pain BACTRIM (SULFAMETHOXAZOLE-TRIME TH*06/12/2005 7 - Swelling Comments: eyes swell CARAFATE (SUCRALFATE) 11/10/2012 11 - Vomiting DARVOCET-N 100 (PROPOXYPHENE N-AC*05/29/2005 14 - Other: See Comments Comments: dizzy severe pain in head ERYTHROMYCIN 05/29/2005 11 - Vomiting IODINATED CONTRAST MEDIA 06/25/2018 12 - Shortness of Breath Date Reviewed: 06/27/2021 Reviewed by: Kenrick Trimble PA-C - Unable to Assess Reason for Visit: Initial Consult [665] Prescriptions as of 06/27/2021 - mupirocin (BACTROBAN) 2 % ointment Apply 0.5 inch with cotton swab (Q-tip) to each nostril in the morning and evening for 5 days prior to and including day of surgery. - meloxicam (MOBIC) 15 mg tablet TAKE 1 TABLET BY MOUTH EVERY DAY - methotrexate 2.5 mg tablet TAKE 5 TABLETS BY MOUTH ONCE EACH WEEK. - folic acid 1 mg tablet Take 1 tablet by mouth once daily. - gabapentin (NEURONTIN) 100 mg capsule TAKE 3 CAPSULES BY MOUTH DAILY AT BEDTIME. - thyroid, pork, (ARMOUR THYROID) 60 mg Take 1 tablet by mouth once daily. - CPAP Initiate Auto PAP @ 5-20 cm of water with humidification. Mask (per patient preference) optional chin strap (if indicated) , filters, tubing, humidifier and lifetime supplies. - Cetirizine (ZYRTEC) 10 mg cap Take by mouth. - predniSONE (DELTASONE) 5 mg tablet TAKE 1 TABLET BY MOUTH EVERY DAY - acetaminophen 650 mg CR tablet Takes 650 mg once daily Facility-Administered Medications as of 06/27/2021 - perflutren lipid microspheres 1.3 mL in NaCl (PF) 0.9% 10 mL injection (DEFINITY) - sodium chloride 0.9 % (flush) 10 mL (BD POSIFLUSH) Problem List As Of Date 06/27/2021 Noted Resolved PALPITATIONS [R00.2] BRONCHITIS NOS [J40] 10/27/2006 MIGRAINE NOS INTRACTABLE [G43.919] DIZZINESS AND GIDDINESS [R42] 10/27/2006 ESOPHAGEAL REFLUX [K21.9] 10/27/2006 Anemia [D64.9] 01/04/2010 Rheumatoid arthritis (HCC) [M06.9] 05/02/2011 09/11/2016 Emotional lability [R45.86] 01/01/2013 1.1 Migraine without aura, not intractable [346*02/08/2015 Intractable migraine with aura without status m*02/08/2015 1.5.1 Chronic migraine [346.71] [G43.719] 02/08/2015 Rheumatoid arthritis of multiple sites without *09/11/2016 Drug allergy [Z88.9] 10/25/2016 Allergy to sulfa drugs [Z88.2] 10/25/2016 Rash and nonspecific skin eruption [R21] 10/25/2016 Hypothyroidism [E03.9] 07/15/2017 Moderate obstructive sleep apnea [G47.33] 01/19/2019 Acute pain of both knees [M25.561, M25.562] 04/10/2020 Knee joint stiffness, bilateral [M25.661, M25.6*04/10/2020 Difficulty walking [R26.2] 04/10/2020 Hip stiffness, unspecified laterality [M25.659] 04/10/2020 Right lumbar radiculitis [M54.16] 11/23/2020 Lumbar spondylosis [M47.816] 11/23/2020 Chronic right-sided low back pain with right-si*11/23/2020 Rheumatoid arthritis involving both knees with *11/23/2020 Exercise-induced asthma [J45.990] 06/25/2021 Encounter Status:Closed by VARINDER SMYTH on 06/27/21 [facility] NM CARDIAC PERF STRESS/EXERC Eon 02-08-2021 NM CARDIAC PERF STRESS/EXERCISE * * *Final Report* * * DATE OF EXAM: Feb 08 2021 9:45AM LUCRECIA 0004 - AL CARDIAC PERF STRESS/EXERCISE / PROCEDURE REASON: multiple diagnoses * * * * Physician Interpretation * * * * Stress ECG Report: [facility] Date of service: 02/08/2021 8:27:11 AM Ordering physician: ANNE CALLOWAY Specialist: Samaria Laurent Stereo Plotter Operator: My Dc Stress ECG interpreting physician: Prem Bunn DO PATIENT: Name: MRS. AURY METZ Age: 56 years Gender: F Height: 165.10 cm BSA: 1.77 m? Weight: 68.04 kg BMI: 25.0 kg/m? Stress ECG Conclusion: Conclusion: Normal with exception due to Fair functional capacity Stress ECG Summary: The patient's resting heart rate was 69 bpm and blood pressure was 124/72 mmHg. The patient exercised according to the Hector protocol. Total exercise time was 5 minutes and 0 seconds. The test was terminated due to general fatigue and shortness of breath. The maximum heart rate was 151 bpm, which is 93% predicted for age. METs achieved was 5.4. The double product achieved was 42199. Peak heart rate was 151 bpm and peak blood pressure was 152/64 mmHg. Indication: Dyspnea on exertion, Abnormal resting ECG and Palpitations Medical History and Comorbidities: Hypothyroidism, hypertension, hyper-cholesterol and family history of coronary artery disease. Medications: Last Used METOPROLOL MOBIC NEURONTIN ARMOUR THYROID PREDNISONE Resting ECG: Normal Sinus Rhythm Symptoms at rest: No symptoms Exercise Protocol: Hector Stress Exercise Table: +----+ +----- ---+ +---+---+ ---+----+----+ Step Speed (MPH) Grade(%) Time (min) HR SYS QI RPE METS +----+ +----- ---+ +---+---+ ---+----+----+ 1 1.7 10.0 3.0 127 124 64 12.0 4.2 +----+ +----- ---+ +---+---+ ---+----+----+ +-----+ +---- -----+ +---+-- -+---+----+----+ Speed (MPH) Grade (%) Time (min) HR SYS QI RPE METS +-----+ +---- -----+ +---+-- -+---+----+----+ Final 2.5 12.0 5.00 151 152 64 14.0 5.4 +-----+ +---- -----+ +---+-- -+---+----+----+ Recovery Table: +----+ +---+-- -+---+ Step Time (min) HR SYS QI +----+ +---+-- -+---+ 1 1.0 136 140 68 +----+ +---+-- -+---+ 2 3.0 93 122 68 +----+ +---+-- -+---+ 3 5.0 88 104 70 +----+ +---+-- -+---+ Stress ECG Findings: Resting HR: 69 bpm Peak HR: 151 bpm (93% MPHR) Resting BP: 124 / 72 mmHg Peak BP: 152 / 64 mmHg Total Exercise Time: 5 minutes 0 seconds METS achieved: 5.4 Chronotropic response index (CRI): ' '0.88 Heart rate recovery (HRR): 15 bpm Rate Pressure Product (RPP): 06043 Main Treadmill Score: 5.0 Stress Exercise Observations: Reason for test termination: general fatigue and shortness of breath Symptoms during test: SOB Heart rate response: Adequate heart rate response, Normal CRI (>0.8 Not on B Jayro) and Normal HRR (>12 or >[address]/EC) Functional Capacity: Fair functional capacity Blood pressure response: Normal BP response ST segment and T wave changes: No ST changes Main Treadmill Score: Normal Main Treadmill Score (>=5) Arrhythmias: PACs Final ---- PATIENT: Name: MRS. AURY METZ Age: 56 years Gender: F CONCLUSIONS: 1. SPECT Perfusion Study: Normal. 2. There is no scintigraphic evidence for inducible ischemia. 3. No evidence of scarred myocardium. 4. Left ventricle is normal in size. The left ventricle systolic function is normal. 5. Right ventricle is normal in size. 6. This is a low risk scan. 1 LVEF % 72 Prior Study Comparison No prior nuclear cardiology exam available for comparison. Nuclear Med Report:1-Day [id number] Exercise Stress Gated SPECT: Myocardial perfusion imaging was performed at rest 30 to 60 minutes following the IV injection of Tc-99m tetrofosmin. One minute prior to peak exercise, the patient was injected IV with Tc-99m tetrofosmin. Gated post stress tomographic imaging was performed 10 to 20 minutes later. See administered doses below. [facility] Date of service: 02/08/2021 8:27:11 AM Ordering Physician: Anne Calloway Requesting Physician: Indication: Shortness of breath produced by exertion or stress Interpreting physician: Prem Bunn DO Height: 165.10 cm BSA: 1.77 m? Weight: 68.04 kg BMI: 25.0 kg/m? Exam Type: Rest Stress Radiopharm: Tc-99m Tetrofosmin Tc-99m Tetrofosmin Dosage(mCi): 11.3 34.7 Atten Correction: not performed not performed Stress Agent: Treadmill Resting Blood Press: 124/72 mmHg Image Quality The overall study imaging quality was deemed to be good. FINDINGS: Left Ventric (more content not included)... Normal [facility] 2021 [facility] Telephone ([facility]) UARY METZ ([id number]) 1965 F Date Time Provider Department 02/07/21 SAMARIA LAURENTPownceGhazal During your visit today, we recorded the following information about you: Samaria Laurent RN 2021 12:48 PM Signed Reviewed instructions for stress test Allergies As of Date: 2021 Noted Allergy Reaction CEPHALEXIN 05/29/2005 10 - Anaphylaxis 14 - Other: See Comments Comments: Throat swelling. Has tolerated augmentin 850mg as op after this episode ACIPHEX (RABEPRAZOLE SODIUM) 07/23/2007 14 - Other: See Comments Comments: Chest pain BACTRIM (SULFAMETHOXAZOLE-TRIME TH*06/12/2005 7 - Swelling Comments: eyes swell CARAFATE (SUCRALFATE) 11/10/2012 11 - Vomiting DARVOCET-N 100 (PROPOXYPHENE N-AC*05/29/2005 14 - Other: See Comments Comments: dizzy severe pain in head ERYTHROMYCIN 05/29/2005 11 - Vomiting IODINATED CONTRAST MEDIA 06/25/2018 12 - Shortness of Breath Date Reviewed: 01/31/2021 Reviewed by: Nhung Nayak Ma - Fully Assessed Reason for Visit: Reminder Call [3103] Prescriptions as of 2021 Sig: METOPROLOL SUCCINATE ER 25 MG* Take 0.5 tablets by mouth onc* MELOXICAM 15 MG TABLET TAKE 1 TABLET BY MOUTH EVERY * METHOTREXATE SODIUM 2.5 MG TA* TAKE 5 TABLETS BY MOUTH ONCE * FOLIC ACID 1 MG TABLET Take 1 tablet by mouth once d* GABAPENTIN 100 MG CAPSULE TAKE 3 CAPSULES BY MOUTH JEREMIAH* THYROID (PORK) 60 MG TABLET Take 1 tablet by mouth once d* CPAP Initiate Auto PAP @ 5-20 cm o* ZYRTEC 10 MG CAPSULE Take by mouth. Patient not taking: Reported on 01/26/2021 PREDNISONE 5 MG TABLET TAKE 1 TABLET BY MOUTH EVERY * ACETAMINOPHEN ER 650 MG TABLE* Takes 650 mg once daily Problem List As Of Date 2021 Noted Resolved PALPITATIONS [R00.2] BRONCHITIS NOS [J40] 10/27/2006 MIGRAINE NOS INTRACTABLE [G43.919] DIZZINESS AND GIDDINESS [R42] 10/27/2006 ESOPHAGEAL REFLUX [K21.9] 10/27/2006 Anemia [D64.9] 01/04/2010 Rheumatoid arthritis (HCC) [M06.9] 05/02/2011 09/11/2016 Emotional lability [R45.86] 01/01/2013 1.1 Migraine without aura, not intractable [346*02/08/2015 1.2 Migraine with aura [G43.109] 02/08/2015 1.5.1 Chronic migraine [346.71] [G43.719] 02/08/2015 Rheumatoid arthritis of multiple sites without *09/11/2016 Drug allergy [Z88.9] 10/25/2016 Allergy to sulfa drugs [Z88.2] 10/25/2016 Rash and nonspecific skin eruption [R21] 10/25/2016 Hypothyroidism [E03.9] 07/15/2017 Moderate obstructive sleep apnea [G47.33] 01/19/2019 Acute pain of both knees [M25.561, M25.562] 04/10/2020 Knee joint stiffness, bilateral [M25.661, M25.6*04/10/2020 Difficulty walking [R26.2] 04/10/2020 Hip stiffness, unspecified laterality [M25.659] 04/10/2020 Right lumbar radiculitis [M54.16] 11/23/2020 Lumbar spondylosis [M47.816] 11/23/2020 Chronic right-sided low back pain with right-si*11/23/2020 Rheumatoid arthritis involving both knees with *11/23/2020 Encounter Status:Closed by SAMARIA LAURENT on 02/07/21 [facility] CNTHERAPYon 05-15-2020 [facility] A[facility]Y [facility] ([id number]) 1965 F Date Time Provider Department 05/15/20 4:30 PM [address] [facility] Date Time Provider Department Center 05/15/2020 4:30 PM [id number], JAY [facility] Reason for Visit: Physical Therapy [503] PT Discharge [752] Reason For Visit History Recorded Primary Visit Diagnosis:Acute pain of both knees [M25.561, M25.562] Other Visit Diagnoses:Knee joint stiffness, bilateral [M25.661, M25.662] Difficulty walking [R26.2] Rheumatoid arthritis of multiple sites without organ or system involvement with positive rheumatoid factor (HCC) [M05.79] Hip stiffness, unspecified laterality [M25.659] Allergies As of Date: 05/15/2020 Noted Allergy Reaction CEPHALEXIN 05/29/2005 10 - Anaphylaxis 14 - Other: See Comments Comments: Throat swelling. Has tolerated augmentin 850mg as op after this episode ACIPHEX (RABEPRAZOLE SODIUM) 07/23/2007 14 - Other: See Comments Comments: Chest pain BACTRIM (SULFAMETHOXAZOLE-TRIME TH*06/12/2005 7 - Swelling Comments: eyes swell CARAFATE (SUCRALFATE) 11/10/2012 11 - Vomiting DARVOCET-N 100 (PROPOXYPHENE N-AC*05/29/2005 14 - Other: See Comments Comments: dizzy severe pain in head ERYTHROMYCIN 05/29/2005 11 - Vomiting IODINATED CONTRAST MEDIA 06/25/2018 12 - Shortness of Breath Date Reviewed: 04/21/2020 Reviewed by: Keya Cooley - Fully Assessed Prescriptions as of 05/15/2020 Sig: [id number] I-MENT* X NAPROXEN SODIUM 220 MG TABLET FOLIC ACID 1 MG TABLET Take 1 tablet by mouth once d* X METHOTREXATE SODIUM 2.5 MG TA* Take 6 tablets by mouth one t* CPAP Initiate Auto PAP @ 5-20 cm o* X NAPROXEN 500 MG TABLET Take 1 tablet by mouth twice * GABAPENTIN 100 MG CAPSULE Take 3 capsules by mouth jeremiah* ZYRTEC 10 MG CAPSULE Take by mouth. PREDNISONE 5 MG TABLET TAKE 1 TABLET BY MOUTH EVERY * X THYROID (PORK) 60 MG TABLET Take 1 tablet by mouth once d* FAMOTIDINE 40 MG TABLET TWICE A DAY CHOLECALCIFEROL (VITAMIN D3) * Take 5,000 Units by mouth onc* OMEGA 8-RCR-YDF-FISH OIL 100 * Take by mouth once daily. MULTI-VITAMIN WITH IRON ORAL Take by mouth once daily. ACETAMINOPHEN ER 650 MG TABLE* Takes 650 mg once daily Progress Notes: Juan Jose Perez, PT 05/15/2020 6:01 PM Signed Episode Visit Count: 8 Therapist That Will Oversee The Plan Of Care: Inman. moon Start of Care Date: 04/10/20 Onset Date: 09/22/15 Plan of Care Certification Date: 04/10/20 Next Certification Due Date: 05/10/20 Patient Identified by Name and Date of : Yes REHABILITATION AND SPORTS THERAPY PHYSICAL THERAPY TREATMENT NOTE ASSESSMENT: Aury Metz demonstrated difficulty with increase pain RIGHT low back with pain and tingling down RIGHT lower extremity to RIGHT foot The patient will continue to benefit from ongoing skilled physical therapy for increase flexibility and stability RIGHT lower extremity hip and low back PLAN FOR NEXT VISIT: Re assess RIGHT lower extremity radiating pain SUBJECTIVE: Patient Reason for Visit: pt states that she is having low back pain and leg pain and tingling r le to ankle Pain: Pain Pain Level: 2 OBJECTIVE MEASURES WITH LEVEL OF FUNCTION: t band kikcs increase pain RIGHT hip lower extremity with stance as well as kicking motion TREATMENT: Sagittal Plane Frontal Plane Transverse Plane X = neutral X = neutral X = neutral R = staggered right W = wide base E = external rotation L = staggered left N = narrow base I = internal rotation 1st letter = sagittal, 2nd letter = frontal, 3rd letter = transverse Examples: XXX = neutral, neutral, neutral RXE = right staggered, neutral width, toes out Therapeutic Exercise: 1: nu step level 3 seat 7 ue 8 x [address] 2 min toe in 6 min 4: amb 300 ft level 11: gtb r l bal opp foot kick band knee ext flex ext abd add x 15 ea in ea direction 12: amb 300 ft level 13: gtb 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 Skilled judgment was provided in selection of appropriate interventions. Correct performance of therapeutic exercises was facilitated with verbal, visual and tactile cuing. Colting: Donna: Therapeutic Exercise (40141): 1:1 time: 40 minutes (3 units: 38-52 mins) Total time / Length of visit: 45 minutes Juan Jose Perez, PT Juan Jose Perez, PT 08/22/2020 8:41 AM Signed 08/22/2020 [facility] REHABILITATION AND SPORTS THERAPY PHYSICAL THERAPY DISCONTINUANCE OF CARE Plan of Care Period: Start of Care Date: 04/10/20 Last Visit Date: 05/15/2020 Therapy Program: Patient did not return for follow up care as planned. Please refer to last visit note for interventions provided for this episode of care. Assessment: Unable to formally a (more content not included)... Normal [facility] CNTHERAPYon 05-08-2020 CNTHERAPY OT/PT/Speech Visit (PTMCRM) AURY METZ ([id number]) 1965 F Date Time Provider Department 05/08/20 4:30 PM [address]SE [address] [facility] Date Time Provider Department Center 05/08/2020 4:30 PM [id number]: [facility] [503] Primary Visit Diagnosis:Acute pain of both knees [M25.561, M25.562] Other Visit Diagnoses:Knee joint stiffness, bilateral [M25.661, M25.662] Difficulty walking [R26.2] Rheumatoid arthritis of multiple sites without organ or system involvement with positive rheumatoid factor (HCC) [M05.79] Hip stiffness, unspecified laterality [M25.659] Allergies As of Date: 05/08/2020 Noted Allergy Reaction CEPHALEXIN 05/29/2005 10 - Anaphylaxis 14 - Other: See Comments Comments: Throat swelling. Has tolerated augmentin 850mg as op after this episode ACIPHEX (RABEPRAZOLE SODIUM) 07/23/2007 14 - Other: See Comments Comments: Chest pain BACTRIM (SULFAMETHOXAZOLE-TRIME TH*06/12/2005 7 - Swelling Comments: eyes swell CARAFATE (SUCRALFATE) 11/10/2012 11 - Vomiting DARVOCET-N 100 (PROPOXYPHENE N-AC*05/29/2005 14 - Other: See Comments Comments: dizzy severe pain in head ERYTHROMYCIN 05/29/2005 11 - Vomiting IODINATED CONTRAST MEDIA 06/25/2018 12 - Shortness of Breath Date Reviewed: 04/21/2020 Reviewed by: [facility] Cooley - Fully Assessed Prescriptions as of 05/08/2020 Sig: [id number]-[id number] I-MENT* NAPROXEN SODIUM 220 MG TABLET METHOTREXATE SODIUM 2.5 MG TA* Take 6 tablets by mouth one t* FOLIC ACID 1 MG TABLET Take 1 tablet by mouth once d* CPAP Initiate Auto PAP @ 5-20 cm o* NAPROXEN 500 MG TABLET Take 1 tablet by mouth twice * GABAPENTIN 100 MG CAPSULE Take 3 capsules by mouth jeremiah* ZYRTEC 10 MG CAPSULE Take by mouth. PREDNISONE 5 MG TABLET TAKE 1 TABLET BY MOUTH EVERY * THYROID (PORK) 60 MG TABLET Take 1 tablet by mouth once d* FAMOTIDINE 40 MG TABLET TWICE A DAY CHOLECALCIFEROL (VITAMIN D3) * Take 5,000 Units by mouth onc* OMEGA 0-DOO-LIF-FISH OIL 100 * Take by mouth once daily. MULTI-VITAMIN WITH IRON ORAL Take by mouth once daily. ACETAMINOPHEN ER 650 MG TABLE* Takes 650 mg once daily Progress Notes: Juan Jose Perez, PT 05/08/2020 5:15 PM Signed Episode Visit Count: 7 Therapist That Will Oversee The Plan Of Care: Inman. moon Start of Care Date: 04/10/20 Onset Date: 09/22/15 Plan of Care Certification Date: 04/10/20 Next Certification Due Date: 05/10/20 Patient Identified by Name and Date of : Yes REHABILITATION AND SPORTS THERAPY PHYSICAL THERAPY TREATMENT NOTE ASSESSMENT: Aury Corbin Lashay demonstrated difficulty with RIGHT hip lower extremity pain and bilateral shoulder pain and LEFT wrist pain The patient will continue to benefit from ongoing skilled physical therapy for increase flexibility and mobility PLAN FOR NEXT VISIT: progress with strengtheningas tolerated while decrease joint pain SUBJECTIVE: Patient Reason for Visit: pt states that she is having r low back and leg pain and b shoulder pain and l wrist pain. Pain: Severe pain RIGHT hip leg 05/01 OBJECTIVE MEASURES WITH LEVEL OF FUNCTION: stair stretch increase hamstring stretch with no change RIGHT leg pain TREATMENT: Sagittal Plane Frontal Plane Transverse Plane X = neutral X = neutral X = neutral R = staggered right W = wide base E = external rotation L = staggered left N = narrow base I = internal rotation 1st letter = sagittal, 2nd letter = frontal, 3rd letter = transverse Examples: XXX = neutral, neutral, neutral RXE = right staggered, neutral width, toes out Therapeutic Exercise: 1: nu step level 3 seat 7 ue 8 x [address] 4 min toe in 10 min 4: amb 300 ft level 5: second step stretch RXX LXX RWX LWX RNX LNX with hip flex knee flex 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 Skilled judgment was provided in selection of appropriate interventions. Correct performance of therapeutic exercises was facilitated with verbal, visual and tactile cuing. Billing: Donna: Therapeutic Exercise (02295): 1:1 time: 40 minutes (3 units: 38-52 mins) Total time / Length of visit: 45 minutes Juan Jose Perez PT [facility] CNTHERAPYon 05-01-2020 CNTHERAPY OT/PT/Speech Visit (PTMCRM) AURY METZ ([id number]) 1965 F Date Time Provider Department 05/01/20 5:15 PM [facility] Time Provider Department Center 05/01/2020 5:15 PM [id number], JAY [facility] Reason for Visit: Physical Therapy [503] Primary Visit Diagnosis:Acute pain of both knees [M25.561, M25.562] Other Visit Diagnoses:Knee joint stiffness, bilateral [M25.661, M25.662] Difficulty walking [R26.2] Rheumatoid arthritis of multiple sites without organ or system involvement with positive rheumatoid factor (HCC) [M05.79] Hip stiffness, unspecified laterality [M25.659] Allergies As of Date: 05/01/2020 Noted Allergy Reaction CEPHALEXIN 05/29/2005 10 - Anaphylaxis 14 - Other: See Comments Comments: Throat swelling. Has tolerated augmentin 850mg as op after this episode ACIPHEX (RABEPRAZOLE SODIUM) 07/23/2007 14 - Other: See Comments Comments: Chest pain BACTRIM (SULFAMETHOXAZOLE-TRIME TH*06/12/2005 7 - Swelling Comments: eyes swell CARAFATE (SUCRALFATE) 11/10/2012 11 - Vomiting DARVOCET-N 100 (PROPOXYPHENE N-AC*05/29/2005 14 - Other: See Comments Comments: dizzy severe pain in head ERYTHROMYCIN 05/29/2005 11 - Vomiting IODINATED CONTRAST MEDIA 06/25/2018 12 - Shortness of Breath Date Reviewed: 04/21/2020 Reviewed by: Key[facility] Hospital[facility] Cooley - Fully Assessed Prescriptions as of 05/01/2020 Sig: [id number] I-MENT* NAPROXEN SODIUM 220 MG TABLET METHOTREXATE SODIUM 2.5 MG TA* Take 6 tablets by mouth one t* FOLIC ACID 1 MG TABLET Take 1 tablet by mouth once d* MISOPROSTOL 200 MCG TABLET Insert 2 tablets vaginally ni* CPAP Initiate Auto PAP @ 5-20 cm o* NAPROXEN 500 MG TABLET Take 1 tablet by mouth twice * GABAPENTIN 100 MG CAPSULE Take 3 capsules by mouth jeremiah* ZYRTEC 10 MG CAPSULE Take by mouth. PREDNISONE 5 MG TABLET TAKE 1 TABLET BY MOUTH EVERY * THYROID (PORK) 60 MG TABLET Take 1 tablet by mouth once d* FAMOTIDINE 40 MG TABLET TWICE A DAY CHOLECALCIFEROL (VITAMIN D3) * Take 5,000 Units by mouth onc* OMEGA 5-LAD-TWK-FISH OIL 100 * Take by mouth once daily. MULTI-VITAMIN WITH IRON ORAL Take by mouth once daily. ACETAMINOPHEN ER 650 MG TABLE* Takes 650 mg once daily Progress Notes: Juan Jose Perez, PT 05/01/2020 5:59 PM Signed Episode Visit Count: 6 Therapist That Will Oversee The Plan Of Care: DeshawnHima moon Start of Care Date: 04/10/20 Onset Date: 09/22/15 Plan of Care Certification Date: 04/10/20 Next Certification Due Date: 05/10/20 Patient Identified by Name and Date of : Yes REHABILITATION AND SPORTS THERAPY PHYSICAL THERAPY TREATMENT NOTE ASSESSMENT: Aury Metz demonstrated improvements in hip trunk mobility in all planes The patient will continue to benefit from ongoing skilled physical therapy for increase strength with t band drivers in upper extremity laoded motion PLAN FOR NEXT VISIT: re assess pain after tband work upper extremity loads SUBJECTIVE: Patient Reason for Visit: pt states she is really working hard Pain: Pain Pain Level: 3 OBJECTIVE MEASURES WITH LEVEL OF FUNCTION: Progress with strength in t abnd all planes no increase pain with minor modifications in foot position with rotation TREATMENT: Sagittal Plane Frontal Plane Transverse Plane X = neutral X = neutral X = neutral R = staggered right W = wide base E = external rotation L = staggered left N = narrow base I = internal rotation 1st letter = sagittal, 2nd letter = frontal, 3rd letter = transverse Examples: XXX = neutral, neutral, neutral RXE = right staggered, neutral width, toes out Therapeutic Exercise: 1: nu step level 3 seat 7 ue 8 x [address] 4 min toe in 10 min 4: amb 300 ft level 15: 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 Skilled Intervention: Patient was educated in proper exercise technique and purpose for exercises. Skilled judgment was provided in selection of appropriate interventions. Correct performance of therapeutic exercises was facilitated with verbal, visual and tactile cuing. Billing: Donna: Therapeutic Exercise (71384): 1:1 time: 40 minutes (3 units: 38-52 mins) Total time / Length of visit: 45 minutes Juan Jose Perez PT [facility] CNTHERAPYon 04-26-2020 CNTHERAPY OT/PT/Speech Visit (PTMCRM) AURY METZ ([id number]) 1965 F Date Time Provider Department 04/26/20 4:15 PM JUAN JOSE PEREZ [facility] Date Time Provider Department [place] 04/26/2020 4:15 PM [id number][facility] Reason for Visit: Physical Therapy [503] Primary Visit Diagnosis:Acute pain of both knees [M25.561, M25.562] Other Visit Diagnoses:Knee joint stiffness, bilateral [M25.661, M25.662] Difficulty walking [R26.2] Rheumatoid arthritis of multiple sites without organ or system involvement with positive rheumatoid factor (HCC) [M05.79] Hip stiffness, unspecified laterality [M25.659] Allergies As of Date: 04/26/2020 Noted Allergy Reaction CEPHALEXIN 05/29/2005 10 - Anaphylaxis 14 - Other: See Comments Comments: Throat swelling. Has tolerated augmentin 850mg as op after this episode ACIPHEX (RABEPRAZOLE SODIUM) 07/23/2007 14 - Other: See Comments Comments: Chest pain BACTRIM (SULFAMETHOXAZOLE-TRIME TH*06/12/2005 7 - Swelling Comments: eyes swell CARAFATE (SUCRALFATE) 11/10/2012 11 - Vomiting DARVOCET-N 100 (PROPOXYPHENE N-AC*05/29/2005 14 - Other: See Comments Comments: dizzy severe pain in head ERYTHROMYCIN 05/29/2005 11 - Vomiting IODINATED CONTRAST MEDIA 06/25/2018 12 - Shortness of Breath Date Reviewed: 04/21/2020 Reviewed by: Keya JudgeScalloperKelly Cooley - Fully Assessed Prescriptions as of 04/26/2020 Sig: [id number] I-MENT* NAPROXEN SODIUM 220 MG TABLET METHOTREXATE SODIUM 2.5 MG TA* Take 6 tablets by mouth one t* FOLIC ACID 1 MG TABLET Take 1 tablet by mouth once d* MISOPROSTOL 200 MCG TABLET Insert 2 tablets vaginally ni* CPAP Initiate Auto PAP @ 5-20 cm o* NAPROXEN 500 MG TABLET Take 1 tablet by mouth twice * GABAPENTIN 100 MG CAPSULE Take 3 capsules by mouth jeremiah* ZYRTEC 10 MG CAPSULE Take by mouth. PREDNISONE 5 MG TABLET TAKE 1 TABLET BY MOUTH EVERY * THYROID (PORK) 60 MG TABLET Take 1 tablet by mouth once d* FAMOTIDINE 40 MG TABLET TWICE A DAY CHOLECALCIFEROL (VITAMIN D3) * Take 5,000 Units by mouth onc* OMEGA 7-KJE-SSB-FISH OIL 100 * Take by mouth once daily. MULTI-VITAMIN WITH IRON ORAL Take by mouth once daily. ACETAMINOPHEN ER 650 MG TABLE* Takes 650 mg once daily Progress Notes: Juan Jose Perez, PT 04/26/2020 5:19 PM Signed Episode Visit Count: 5 Therapist That Will Oversee The Plan Of Care: Inman. moon Start of Care Date: 04/10/20 Onset Date: 09/22/15 Plan of Care Certification Date: 04/10/20 Next Certification Due Date: 05/10/20 Patient Identified by Name and Date of : Yes REHABILITATION AND SPORTS THERAPY PHYSICAL THERAPY TREATMENT NOTE ASSESSMENT: Aury Corbin Lashay demonstrated difficulty with RIGHT hip pain with increase fatigue The patient will continue to benefit from ongoing skilled physical therapy for increase flexibility and mobility PLAN FOR NEXT VISIT: progress with strengthening t band upper extremity drivers SUBJECTIVE: Patient Reason for Visit: pt states that she is doing ok. having trouble Pain: Pain Pain Level: 3 OBJECTIVE MEASURES WITH LEVEL OF FUNCTION: step up dn lead TREATMENT: Sagittal Plane Frontal Plane Transverse Plane X = neutral X = neutral X = neutral R = staggered right W = wide base E = external rotation L = staggered left N = narrow base I = internal rotation 1st letter = sagittal, 2nd letter = frontal, 3rd letter = transverse Examples: XXX = neutral, neutral, neutral RXE = right staggered, neutral width, toes out Therapeutic Exercise: 2: amb 24 steps recip amb 5 min on track with 3 # wts r l ue x 4 laps approx 5 min 4: amb 300 ft level 6: b mini squats XXX RXX LXX XWX XNX XXE XXI x 5 ea 7: b heel raises XXx RXX LXX XWX XNX XXE XXI x 5 ea 9: amb 300 ft level 11: gtb r l bal opp foot kick band knee ext flex ext abd add x 10 ea in ea direction 12: amb 300 ft level 13: 8 step up dn lead r lead l ant same side lat same side rot x 10 ea in ea direction 14: agility walk 50 ft <. x 3 ant post r l lat r l carioca Skilled Intervention: Patient was educated in proper exercise technique and purpose for exercises. Skilled judgment was provided in selection of appropriate interventions. Correct performance of therapeutic exercises was facilitated with verbal, visual and tactile cuing. Colting: Donna: Therapeutic Exercise ([id number]): 1:1 time: 40 minutes (3 units: 38-52 mins) Total time / Length of visit: 45 minutes Juan Jose Perez PT [facility] CNTHERAPYon 04-19-2020 CNTHERAPY OT/PT/Speech Visit (PTMCRM) AURY METZ ([id number]) 1965 F Date Time Provider Department 04/19/20 5:15 PM JUAN JOSE PEREZ PTM[facility] Date Time Provider Department Center 04/19/2020 5:15 PM [id number], JAY [facility] Reason for Visit: Physical Therapy [503] Primary Visit Diagnosis:Acute pain of both knees [M25.561, M25.562] Other Visit Diagnoses:Knee joint stiffness, bilateral [M25.661, M25.662] Difficulty walking [R26.2] Hip stiffness, unspecified laterality [M25.659] Rheumatoid arthritis of multiple sites without organ or system involvement with positive rheumatoid factor (HCC) [M05.79] Allergies As of Date: 04/19/2020 Noted Allergy Reaction CEPHALEXIN 05/29/2005 10 - Anaphylaxis 14 - Other: See Comments Comments: Throat swelling. Has tolerated augmentin 850mg as op after this episode ACIPHEX (RABEPRAZOLE SODIUM) 07/23/2007 14 - Other: See Comments Comments: Chest pain BACTRIM (SULFAMETHOXAZOLE-TRIME TH*06/12/2005 7 - Swelling Comments: eyes swell CARAFATE (SUCRALFATE) 11/10/2012 11 - Vomiting DARVOCET-N 100 (PROPOXYPHENE N-AC*05/29/2005 14 - Other: See Comments Comments: dizzy severe pain in head ERYTHROMYCIN 05/29/2005 11 - Vomiting IODINATED CONTRAST MEDIA 06/25/2018 12 - Shortness of Breath Date Reviewed: 04/17/2020 Reviewed by: Nathaly Rios - Fully Assessed Prescriptions as of 04/19/2020 Sig: [id number] I-MENT* NAPROXEN SODIUM 220 MG TABLET METHOTREXATE SODIUM 2.5 MG TA* Take 6 tablets by mouth one t* FOLIC ACID 1 MG TABLET Take 1 tablet by mouth once d* MISOPROSTOL 200 MCG TABLET Insert 2 tablets vaginally ni* CPAP Initiate Auto PAP @ 5-20 cm o* NAPROXEN 500 MG TABLET Take 1 tablet by mouth twice * GABAPENTIN 100 MG CAPSULE Take 3 capsules by mouth jeremiah* ZYRTEC 10 MG CAPSULE Take by mouth. PREDNISONE 5 MG TABLET TAKE 1 TABLET BY MOUTH EVERY * THYROID (PORK) 60 MG TABLET Take 1 tablet by mouth once d* FAMOTIDINE 40 MG TABLET TWICE A DAY CHOLECALCIFEROL (VITAMIN D3) * Take 5,000 Units by mouth onc* OMEGA 4-YLE-RRH-FISH OIL 100 * Take by mouth once daily. MULTI-VITAMIN WITH IRON ORAL Take by mouth once daily. ACETAMINOPHEN ER 650 MG TABLE* Takes 650 mg once daily Progress Notes: Juan Jose Perez, PT 04/19/2020 5:54 PM Signed Episode Visit Count: 4 Therapist That Will Oversee The Plan Of Care: DeshawnHima moon Start of Care Date: 04/10/20 Onset Date: 09/22/15 Plan of Care Certification Date: 04/10/20 Next Certification Due Date: 05/10/20 Patient Identified by Name and Date of : Yes REHABILITATION AND SPORTS THERAPY PHYSICAL THERAPY TREATMENT NOTE ASSESSMENT: Aury Metz demonstrated improvements in mobility and flexibility in gait The patient will continue to benefit from ongoing skilled physical therapy for increase flexibility and strength in standing PLAN FOR NEXT VISIT: t band and step up 4 as tolerated SUBJECTIVE: Patient Reason for Visit: pt states that she is doing ok but would like to step back from work hours a little. Pain: Pain Pain Level: 3 OBJECTIVE MEASURES WITH LEVEL OF FUNCTION: ambulate on track with increase pace decrease assym TREATMENT: Sagittal Plane Frontal Plane Transverse Plane X = neutral X = neutral X = neutral R = staggered right W = wide base E = external rotation L = staggered left N = narrow base I = internal rotation 1st letter = sagittal, 2nd letter = frontal, 3rd letter = transverse Examples: XXX = neutral, neutral, neutral RXE = right staggered, neutral width, toes out Therapeutic Exercise: 2: amb 24 steps recip amb 5 min on track with 3 # wts r l ue x 4 laps approx 5 min 3: alt r l lunge steps grid ant ant lat lat post lat post x 10 ea alt r l 4: amb 300 ft level 6: b mini squats XXX RXX LXX XWX XNX XXE XXI x 5 ea 7: b heel raises XXx RXX LXX XWX XNX XXE XXI x 5 ea 8: amb 100 ft between position change 9: amb 300 ft level Skilled Intervention: Patient was educated in proper exercise technique and purpose for exercises. Skilled judgment was provided in selection of appropriate interventions. Correct performance of therapeutic exercises was facilitated with verbal, visual and tactile cuing. Billing: Donna: Therapeutic Exercise ([id number]): 1:1 time: 35 minutes (2 units: 23-37 mins) Total time / Length of visit: 38 minutes Juan Jose Perez PT [facility] CNTHERAPYon 04-17-2020 CNTHERAPY OT/PT/Speech Visit (PTMCRM) AURY METZ ([id number]) 1965 F Date Time Provider Department 04/17/20 5:15 PM [address]SE [address] [facility] Date Time Provider Department Center 04/17/2020 5:15 PM [id number], JAY [facility] Reason for Visit: Physical Therapy [503] Primary Visit Diagnosis:Acute pain of both knees [M25.561, M25.562] Other Visit Diagnoses:Knee joint stiffness, bilateral [M25.661, M25.662] Difficulty walking [R26.2] Hip stiffness, unspecified laterality [M25.659] Rheumatoid arthritis of multiple sites without organ or system involvement with positive rheumatoid factor (HCC) [M05.79] Allergies As of Date: 04/17/2020 Noted Allergy Reaction CEPHALEXIN 05/29/2005 10 - Anaphylaxis 14 - Other: See Comments Comments: Throat swelling. Has tolerated augmentin 850mg as op after this episode ACIPHEX (RABEPRAZOLE SODIUM) 07/23/2007 14 - Other: See Comments Comments: Chest pain BACTRIM (SULFAMETHOXAZOLE-TRIME TH*06/12/2005 7 - Swelling Comments: eyes swell CARAFATE (SUCRALFATE) 11/10/2012 11 - Vomiting DARVOCET-N 100 (PROPOXYPHENE N-AC*05/29/2005 14 - Other: See Comments Comments: dizzy severe pain in head ERYTHROMYCIN 05/29/2005 11 - Vomiting IODINATED CONTRAST MEDIA 06/25/2018 12 - Shortness of Breath Date Reviewed: 04/17/2020 Reviewed by: Nathaly Rios - Fully Assessed Prescriptions as of 04/17/2020 Sig: [id number] I-MENT* NAPROXEN SODIUM 220 MG TABLET METHOTREXATE SODIUM 2.5 MG TA* Take 6 tablets by mouth one t* FOLIC ACID 1 MG TABLET Take 1 tablet by mouth once d* MISOPROSTOL 200 MCG TABLET Insert 2 tablets vaginally ni* CPAP Initiate Auto PAP @ 5-20 cm o* NAPROXEN 500 MG TABLET Take 1 tablet by mouth twice * GABAPENTIN 100 MG CAPSULE Take 3 capsules by mouth jeremiah* ZYRTEC 10 MG CAPSULE Take by mouth. PREDNISONE 5 MG TABLET TAKE 1 TABLET BY MOUTH EVERY * THYROID (PORK) 60 MG TABLET Take 1 tablet by mouth once d* FAMOTIDINE 40 MG TABLET TWICE A DAY CHOLECALCIFEROL (VITAMIN D3) * Take 5,000 Units by mouth onc* OMEGA 6-CBM-BLX-FISH OIL 100 * Take by mouth once daily. MULTI-VITAMIN WITH IRON ORAL Take by mouth once daily. ACETAMINOPHEN ER 650 MG TABLE* Takes 650 mg once daily Progress Notes: Juan Jose Perez, PT 04/17/2020 6:34 PM Signed Episode Visit Count: 3 Therapist That Will Oversee The Plan Of Care: Inman. moon Start of Care Date: 04/10/20 Onset Date: 09/22/15 Plan of Care Certification Date: 04/10/20 Next Certification Due Date: 05/10/20 Patient Identified by Name and Date of : Yes REHABILITATION AND SPORTS THERAPY PHYSICAL THERAPY TREATMENT NOTE ASSESSMENT: Auryderek Metz demonstrated improvements in gait mechanics and pace and less assym The patient will continue to benefit from ongoing skilled physical therapy for increase flexibility and mobility PLAN FOR NEXT VISIT: progress t band if tolerated SUBJECTIVE: Patient Reason for Visit: pt states she is feeling ok. am is rough but then when her meds kick in she is a litle better. Pain: Pain Pain Level: 3 OBJECTIVE MEASURES WITH LEVEL OF FUNCTION: TREATMENT: Sagittal Plane Frontal Plane Transverse Plane X = neutral X = neutral X = neutral R = staggered right W = wide base E = external rotation L = staggered left N = narrow base I = internal rotation 1st letter = sagittal, 2nd letter = frontal, 3rd letter = transverse Examples: XXX = neutral, neutral, neutral RXE = right staggered, neutral width, toes out Therapeutic Exercise: 1: nu step level 3 seat 7 ue 8 x [address] 4 min toe in 10 min 2: amb 300 ft level 3: alt r l lunge steps grid ant ant lat lat post lat post x 10 ea alt r l 4: amb 300 ft level 5: sit to stand to sit no ue loads as pauline XXX RXX LXX x 10 ea in ea direction 6: amb 300 ft level 8: amb 300 ft level 9: agility walk ant post r l lat r l carioca 50 ft <> x 3 ea Skilled Intervention: Patient was educated in proper exercise technique and purpose for exercises. Skilled judgment was provided in selection of appropriate interventions. Correct performance of therapeutic exercises was facilitated with verbal, visual and tactile cuing. Colting: Donna: Therapeutic Exercise ([id number]): 1:1 time: 45 minutes (3 units: 38-52 mins) Total time / Length of visit: 50 minutes Juan Jose Perez PT [facility] CNTHERAPYon 04-12-2020 CNTHERAPY OT/PT/Speech Visit (PTMCRM) AURY METZ ([id number]) 1965 F Date Time Provider Department 04/12/20 4:15 PM JUAN JOSE PEREZ PTMCRM Date Time Provider Department Center 04/12/2020 4:15 PM [id number], JAY [facility] Reason for Visit: Physical Therapy [503] Primary Visit Diagnosis:Acute pain of both knees [M25.561, M25.562] Other Visit Diagnoses:Knee joint stiffness, bilateral [M25.661, M25.662] Difficulty walking [R26.2] Hip stiffness, unspecified laterality [M25.659] Rheumatoid arthritis of multiple sites without organ or system involvement with positive rheumatoid factor (HCC) [M05.79] Allergies As of Date: 04/12/2020 Noted Allergy Reaction CEPHALEXIN 05/29/2005 10 - Anaphylaxis 14 - Other: See Comments Comments: Throat swelling. Has tolerated augmentin 850mg as op after this episode ACIPHEX (RABEPRAZOLE SODIUM) 07/23/2007 14 - Other: See Comments Comments: Chest pain BACTRIM (SULFAMETHOXAZOLE-TRIME TH*06/12/2005 7 - Swelling Comments: eyes swell CARAFATE (SUCRALFATE) 11/10/2012 11 - Vomiting DARVOCET-N 100 (PROPOXYPHENE N-AC*05/29/2005 14 - Other: See Comments Comments: dizzy severe pain in head ERYTHROMYCIN 05/29/2005 11 - Vomiting IODINATED CONTRAST MEDIA 06/25/2018 12 - Shortness of Breath Date Reviewed: 03/15/2020 Reviewed by: Vilma Kebede Ma - Fully Assessed Prescriptions as of 04/12/2020 Sig: METHOTREXATE SODIUM 2.5 MG TA* Take 6 tablets by mouth one t* FOLIC ACID 1 MG TABLET Take 1 tablet by mouth once d* MISOPROSTOL 200 MCG TABLET Insert 2 tablets vaginally ni* CPAP Initiate Auto PAP @ 5-20 cm o* NAPROXEN 500 MG TABLET Take 1 tablet by mouth twice * GABAPENTIN 100 MG CAPSULE Take 3 capsules by mouth jeremiah* ZYRTEC 10 MG CAPSULE Take by mouth. PREDNISONE 5 MG TABLET TAKE 1 TABLET BY MOUTH EVERY * THYROID (PORK) 60 MG TABLET Take 1 tablet by mouth once d* FAMOTIDINE 40 MG TABLET TWICE A DAY CHOLECALCIFEROL (VITAMIN D3) * Take 5,000 Units by mouth onc* OMEGA 8-IXC-AKJ-FISH OIL 100 * Take by mouth once daily. MULTI-VITAMIN WITH IRON ORAL Take by mouth once daily. ACETAMINOPHEN ER 650 MG TABLE* Takes 650 mg once daily Progress Notes: Juan Jose Perez, PT 04/12/2020 5:00 PM Signed Episode Visit Count: 2 Therapist That Will Oversee The Plan Of Care: DeshawnHima moon Start of Care Date: 04/10/20 Onset Date: 09/22/15 Plan of Care Certification Date: 04/10/20 Next Certification Due Date: 05/10/20 Patient Identified by Name and Date of : Yes REHABILITATION AND SPORTS THERAPY PHYSICAL THERAPY TREATMENT NOTE ASSESSMENT: Aury Metz demonstrated difficulty with RIGHT > LEFT stiffness and pain The patient will continue to benefit from ongoing skilled physical therapy for increase strength in lower extremity with increase effort and biomechanical loads from hips to decrease stress to knee RIGHT LEFT . PLAN FOR NEXT VISIT: progress bilateral squats mini h heel raises 7 positions SUBJECTIVE: Patient Reason for Visit: pt states that she is trying to work on being more smart with her work schedule Pain: Pain Pain Level: 3 OBJECTIVE MEASURES WITH LEVEL OF FUNCTION: sit to stand with increase hip flexion decrease pain TREATMENT: Sagittal Plane Frontal Plane Transverse Plane X = neutral X = neutral X = neutral R = staggered right W = wide base E = external rotation L = staggered left N = narrow base I = internal rotation 1st letter = sagittal, 2nd letter = frontal, 3rd letter = transverse Examples: XXX = neutral, neutral, neutral RXE = right staggered, neutral width, toes out Therapeutic Exercise: 1: nu step level 2 seat 7 ue 8 x [address] 4 min toe in 10 min 2: amb 300 ft level 3: alt r l lunge steps grid ant ant lat lat post lat post x 10 ea alt r l 4: amb 300 ft level 5: sit to stand to sit no ue loads as pauline XXX RXX LXX x 10 ea in ea direction 6: amb 300 ft level 7: b heel raises XXX RXX LXX x 10 ea amb 100 ft between sets 8: amb 300 ft level 9: agility walk ant post r l lat r l carioca 60 ft <> x 4 ea 10: amb 300 ft level Skilled Intervention: Patient was educated in proper exercise technique and purpose for exercises. Skilled judgment was provided in selection of appropriate interventions. Correct performance of therapeutic exercises was facilitated with verbal, visual and tactile cuing. Colting: Donna: Therapeutic Exercise ([id number]): 1:1 time: 40 minutes (3 units: 38-52 mins) Total time / Length of visit: 42 minutes Juan Jose Perez PT [facility] CNTHERAPYon 04-10-2020 CNTHERAPY OT/PT/Speech Visit (PTMCRM) AURY METZ ([id number]) 1965 F Date Time Provider Department 04/10/20 6:00 PM JUAN JOSE PEREZ [facility] Date Time Provider Department [place] 04/10/2020 6:00 PM [id number], JAY [facility] Reason for Visit: PT Eval [747] Patient Education [91] Visit Diagnoses:Rheumatoid arthritis of multiple sites without organ or system involvement with positive rheumatoid factor (HCC) [M05.79] Acute pain of both knees [M25.561, M25.562] Knee joint stiffness, bilateral [M25.661, M25.662] Difficulty walking [R26.2] Hip stiffness, unspecified laterality [M25.659] Allergies As of Date: 04/10/2020 Noted Allergy Reaction CEPHALEXIN 05/29/2005 10 - Anaphylaxis 14 - Other: See Comments Comments: Throat swelling. Has tolerated augmentin 850mg as op after this episode ACIPHEX (RABEPRAZOLE SODIUM) 07/23/2007 14 - Other: See Comments Comments: Chest pain BACTRIM (SULFAMETHOXAZOLE-TRIME TH*06/12/2005 7 - Swelling Comments: eyes swell CARAFATE (SUCRALFATE) 11/10/2012 11 - Vomiting DARVOCET-N 100 (PROPOXYPHENE N-AC*05/29/2005 14 - Other: See Comments Comments: dizzy severe pain in head ERYTHROMYCIN 05/29/2005 11 - Vomiting IODINATED CONTRAST MEDIA 06/25/2018 12 - Shortness of Breath Date Reviewed: 03/15/2020 Reviewed by: Vilma Kebede Ma - Fully Assessed Prescriptions as of 04/10/2020 Sig: METHOTREXATE SODIUM 2.5 MG TA* Take 6 tablets by mouth one t* FOLIC ACID 1 MG TABLET Take 1 tablet by mouth once d* MISOPROSTOL 200 MCG TABLET Insert 2 tablets vaginally ni* CPAP Initiate Auto PAP @ 5-20 cm o* NAPROXEN 500 MG TABLET Take 1 tablet by mouth twice * GABAPENTIN 100 MG CAPSULE Take 3 capsules by mouth jeremiah* ZYRTEC 10 MG CAPSULE Take by mouth. PREDNISONE 5 MG TABLET TAKE 1 TABLET BY MOUTH EVERY * THYROID (PORK) 60 MG TABLET Take 1 tablet by mouth once d* FAMOTIDINE 40 MG TABLET TWICE A DAY CHOLECALCIFEROL (VITAMIN D3) * Take 5,000 Units by mouth onc* OMEGA 1-YHZ-BIK-FISH OIL 100 * Take by mouth once daily. MULTI-VITAMIN WITH IRON ORAL Take by mouth once daily. ACETAMINOPHEN ER 650 MG TABLE* Takes 650 mg once daily Progress Notes: Juan Jose Perez, PT 04/10/2020 6:53 PM Signed Episode Visit Count: 1 Therapist That Will Oversee The Plan Of Care: [email or web address]. moon Start of Care Date: 04/10/20 Onset Date: 09/22/15 Plan of Care Certification Date: 04/10/20 Next Certification Due Date: 05/10/20 Patient Identified by Name and Date of : Yes REHABILITATION AND SPORTS THERAPY PHYSICAL THERAPY EVALUATION PLAN OF CARE: Assessment: Aury Metz presents with the diagnosis of Rheumatoid arthritis of multiple sites without organ or system involvement with positive rheumatoid factor (HCC) [M05.79] Primary osteoarthritis of right knee [M17.11] . She presents with impairments of knee pain and stiffness hip pain and stiffness difficulty walking. She may benefit from skilled therapy services to improve flexibility hips knees and ankle As well as increase core functional mobility and strength increase balance and control. Pt has significant limitations in knee and hip mobility and decrease core stability and decrease balance. PT spent excessive time explaining the need to begin getting herself in a position to handle the next phase of life with better vitality and while she deals with the progressive nature of her systemic issues. Prognosis: Fair Fair due to: clinical presentation;multiple co- morbidities Goals for Episode of Care: created on 04/10/20 through 05/25/20 Decrease pain by report from eval RIGHT LEFT knee to 4/10 max with normal activity arom RIGHT LEFT knee flexion extension in supine and or sitting from eval with decrease pain arom RIGHT LEFT hip in stand non wt lower extremity hip flexion extension abduction adduction internal rotation external rotation from eval Hip mobility in stand wt bearing extension adduction internal rotation external rotation from eval Ambulate with less assym and less pain level surface x 5 min Ambulate less assym less pain uneven surface x 5 min Agility ambulate all planes decrease pain RIGHT LEFT knee Bilateral squat increase hip flexion knee flexion and ret to extension with decrease pain from eval Ambulate up dn 12 steps reciprocal with 1 hand rail with decrease pain Unilateral balance RIGHT LEFT x 5 sec with decrease pain Unilateral squat RIGHT LEFT tolerated with decrease pain hip and knee flexion and ret to extension Dewey in home exercise program. Patient Goals: dec pain inc functional ability Planned Interventions, Frequency, and Duration: Current Frequency: 2x/week Duration: 4 weeks Total Number of Visits Planned: 8 Planned Treatment Interventions: Therapeutic exercise PLAN FOR NEXT VISIT: progress rehab plan Patient demonstrates fair understanding of plan of care and treatment. The (more content not included)... Normal [facility] Influenza virus A and B and SARS-CoV-2 (COVID-19) Ag panel - Upper respiratory specim SARS-CoV-2 & FLU Antigen (Rapid) SARS-CoV-2 (COVID 19) [facility] Work Phone: SARS-CoV-2 & FLU Antigen (Rapid) Influenzae A [facility] Work Phone: Vital Signs Date Time Vital Sign Value Performing Clinician Facility 12-15-2024 14:16-0400 Body mass index (BMI) [Ratio] 24.57 kg/m2 Mino Harris MD Work Phone: [facility] 12-15-2024 14:16-0400 Body temperature 97.2 [degF] Mino Harris MD Work Phone: [facility] 12-15-2024 14:16-0400 Body weight 65.95 kg Mino Harris MD Work Phone: [facility] 12-15-2024 14:16-0400 Diastolic blood pressure 68 mm[Hg] Mino Harris MD Work Phone: [facility] 12-15-2024 14:16-0400 Heart rate 103 /min Mino Harris MD Work Phone: [facility] 12-15-2024 14:16-0400 Systolic blood pressure 126 mm[Hg] Mino Harris MD Work Phone: [facility] 11-06-2024 13:57-0500 Body mass index (BMI) [Ratio] 24.74 kg/m2 Reilly Clutter PA-C Work Phone: [facility] 11-06-2024 13:57-0500 Body temperature 99.61 [degF] Reilly Clutter PA-C Work Phone: [facility] 11-06-2024 13:57-0500 Body weight 66.4 kg Reilly Clutter PA-C Work Phone: [facility] 11-06-2024 13:57-0500 Diastolic blood pressure 76 mm[Hg] Reilly Clutter PA-C Work Phone: [facility] 11-06-2024 13:57-0500 Heart rate 92 /min Reilly Clutter PA-C Work Phone: [facility] 11-06-2024 13:57-0500 Respiratory rate 16 /min Reilly Clutter PA-C Work Phone: [facility] 11-06-2024 13:57-0500 SaO2% (BldA) [Mass fraction] 96 % Reilly Clutter PA-C Work Phone: [facility] 11-06-2024 13:57-0500 Systolic blood pressure 120 mm[Hg] Reilly Clutter PA-C Work Phone: [facility] 06-10-2024 09:51-0400 Body mass index (BMI) [Ratio] 23.51 kg/m2 Mino Harris MD Work Phone: [facility] 06-10-2024 09:51-0400 Body temperature 97.9 [degF] Mino Harris MD Work Phone: [facility] 06-10-2024 09:51-0400 Body weight 63.09 kg Mino Harris MD Work Phone: [facility] 06-10-2024 09:51-0400 Diastolic blood pressure 51 mm[Hg] Mino Harris MD Work Phone: [facility] 06-10-2024 09:51-0400 Heart rate 69 /min Mino Harris MD Work Phone: [facility] 06-10-2024 09:51-0400 Systolic blood pressure 108 mm[Hg] Mino Harris MD Work Phone: [facility] 05-28-2024 14:00-0400 Body height 163.8 cm Ev Berger TRASH COLLECTOR.DIE CUTTING MACHINE OPERATOR Work Phone: [facility] 05-28-2024 14:00-0400 Body mass index (BMI) [Ratio] 23.88 kg/m2 Ev Berger TRASH COLLECTOR.DIE CUTTING MACHINE OPERATOR Work Phone: [facility] 05-28-2024 14:00-0400 Body weight 64.1 kg Ev Berger TRASH COLLECTOR.DIE CUTTING MACHINE OPERATOR Work Phone: [facility] 05-28-2024 14:00-0400 Diastolic blood pressure 62 mm[Hg] Ev Berger TRASH COLLECTOR.DIE CUTTING MACHINE OPERATOR Work Phone: [facility] 05-28-2024 14:00-0400 Heart rate 85 /min Ev Berger TRASH COLLECTOR.DIE CUTTING MACHINE OPERATOR Work Phone: [facility] 05-28-2024 14:00-0400 Respiratory rate 16 /min Ev Berger TRASH COLLECTOR.DIE CUTTING MACHINE OPERATOR Work Phone: [facility] 05-28-2024 14:00-0400 Systolic blood pressure 100 mm[Hg] Ev Berger TRASH COLLECTOR.DIE CUTTING MACHINE OPERATOR Work Phone: [facility] 05-16-2024 10:18-0400 Body temperature 98.6 [degF] GHAZALA HOOVER MD [facility] 05-16-2024 10:18-0400 Diastolic Blood Pressure Non-Invasive 75 mm[Hg] GHAZALA HOOVER MD [facility] 05-16-2024 10:18-0400 Heart rate 77 /min GHAZALA HOOVER MD [facility] 05-16-2024 10:18-0400 Respiratory rate 16 /min GHAZALA HOOVER MD [facility] 05-16-2024 10:18-0400 Systolic Blood Pressure Non-Invasive 127 mm[Hg] GHAZALA HOOVER MD [facility] 12-10-2023 13:31-0400 Body height 165.1 cm Jesusita Kalka PA-C Work Phone: [facility] 12-10-2023 13:31-0400 Body weight 63.5 kg Jesusita Kalka PA-C Work Phone: [facility] 12-10-2023 13:31-0400 Diastolic blood pressure 62 mm[Hg] Jesusita Kalka PA-C Work Phone: [facility] 12-10-2023 13:31-0400 Heart rate 85 /min Jesusita Kalka PA-C Work Phone: [facility] 12-10-2023 13:31-0400 Systolic blood pressure 112 mm[Hg] Jesusita Kalka PA-C Work Phone: [facility] 08-29-2023 15:02-0500 Diastolic blood pressure 53 mm[Hg] Buck Shepherd MD Work Phone: [facility] 08-29-2023 15:02-0500 Heart rate 78 /min Buck Shepherd MD Work Phone: [facility] 08-29-2023 15:02-0500 Respiratory rate 16 /min Buck Shepherd MD Work Phone: [facility] 08-29-2023 15:02-0500 SaO2% (BldA) [Mass fraction] 100 % Buck Shepherd MD Work Phone: [facility] 08-29-2023 15:02-0500 Systolic blood pressure 106 mm[Hg] Buck Shepherd MD Work Phone: [facility] 08-29-2023 14:49-0500 Body temperature 97.2 [degF] Buck Shepherd MD Work Phone: [facility] 08-29-2023 14:03-0500 Body height 165.1 cm Buck Shepherd MD Work Phone: [facility] 08-29-2023 14:03-0500 Body mass index (BMI) [Ratio] 23.8 kg/m2 Buck Shepherd MD Work Phone: [facility] 08-29-2023 14:03-0500 Body weight 64.86 kg Buck Shepherd MD Work Phone: [facility] 03-18-2023 09:28-0400 Diastolic blood pressure 64 mm[Hg] Tee Batres MD Work Phone: [facility] 03-18-2023 09:28-0400 Heart rate 72 /min Tee Batres MD Work Phone: [facility] 03-18-2023 09:28-0400 Respiratory rate 16 /min Tee Batres MD Work Phone: [facility] 03-18-2023 09:28-0400 SaO2% (BldA) [Mass fraction] 98 % Tee Batres MD Work Phone: [facility] 03-18-2023 09:28-0400 Systolic blood pressure 110 mm[Hg] Tee Batres MD Work Phone: [facility] 03-18-2023 09:13-0400 Body temperature 97.39 [degF] Tee Batres MD Work Phone: [facility] 03-18-2023 08:26-0400 Body height 162.6 cm Tee Batres MD Work Phone: [facility] 03-18-2023 08:26-0400 Body mass index (BMI) [Ratio] 24.2 kg/m2 Tee Batres MD Work Phone: [facility] 03-18-2023 08:26-0400 Body weight 63.96 kg Tee Batres MD Work Phone: [facility] 02-26-2023 16:48-0400 Body height 165 cm Timbo Bright MD Work Phone: [facility] 02-26-2023 16:48-0400 Body temperature 97.2 [degF] Timbo Bright MD Work Phone: [facility] 02-26-2023 16:48-0400 Body weight 63.96 kg Timbo Bright MD Work Phone: [facility] 02-26-2023 16:48-0400 Diastolic blood pressure 62 mm[Hg] Timbo Bright MD Work Phone: [facility] 02-26-2023 16:48-0400 Heart rate 96 /min Timbo Bright MD Work Phone: [facility] 02-26-2023 16:48-0400 Respiratory rate 18 /min Timbo Bright MD Work Phone: [facility] 02-26-2023 16:48-0400 SaO2% (BldA) [Mass fraction] 97 % Timbo Bright MD Work Phone: [facility] 02-26-2023 16:48-0400 Systolic blood pressure 118 mm[Hg] Timbo Bright MD Work Phone: [facility] 12-24-2022 10:19-0400 Body weight 66.68 kg Goldie Christo TRASH COLLECTOR.LINOTYPE MACHINIST APPRENTICE Work Phone: [facility] 12-24-2022 10:19-0400 Diastolic blood pressure 64 mm[Hg] Goldie Christo TRASH COLLECTOR.LINOTYPE MACHINIST APPRENTICE Work Phone: [facility] 12-24-2022 10:19-0400 Heart rate 85 /min Goldie Christo TRASH COLLECTOR.LINOTYPE MACHINIST APPRENTICE Work Phone: [facility] 12-24-2022 10:19-0400 SaO2% (BldA) [Mass fraction] 98 % Goldie Christo TRASH COLLECTOR.LINOTYPE MACHINIST APPRENTICE Work Phone: [facility] 12-24-2022 10:19-0400 Systolic blood pressure 106 mm[Hg] Goldie Christo TRASH COLLECTOR.LINOTYPE MACHINIST APPRENTICE Work Phone: [facility] 12-10-2022 10:14-0400 Body temperature 97.81 [degF] Cris Del Valle PT Work Phone: [facility] 12-10-2022 10:14-0400 Diastolic blood pressure 70 mm[Hg] Cris Del Valle PT Work Phone: [facility] 12-10-2022 10:14-0400 Heart rate 81 /min Cris Del Valle PT Work Phone: [facility] 12-10-2022 10:14-0400 Respiratory rate 16 /min Cris Del Valle PT Work Phone: [facility] 12-10-2022 10:14-0400 SaO2% (BldA) [Mass fraction] 99 % Cris Del Valle PT Work Phone: [facility] 12-10-2022 10:14-0400 Systolic blood pressure 110 mm[Hg] Cris Del Valle PT Work Phone: [facility] 12-04-2022 10:37-0400 Body temperature 98.4 [degF] Deneen Isabelle HYDRAULIC BULL RIVETER OPERATOR Work Phone: [facility] 12-04-2022 10:37-0400 Diastolic blood pressure 68 mm[Hg] Deneen Isabelle HYDRAULIC BULL RIVETER OPERATOR Work Phone: [facility] 12-04-2022 10:37-0400 Heart rate 91 /min Deneen Isabelle HYDRAULIC BULL RIVETER OPERATOR Work Phone: [facility] 12-04-2022 10:37-0400 Respiratory rate 16 /min Deneen Isabelle HYDRAULIC BULL RIVETER OPERATOR Work Phone: [facility] 12-04-2022 10:37-0400 SaO2% (BldA) [Mass fraction] 98 % Deneen Isabelle HYDRAULIC BULL RIVETER OPERATOR Work Phone: [facility] 12-04-2022 10:37-0400 Systolic blood pressure 116 mm[Hg] Deneen Isabelle HYDRAULIC BULL RIVETER OPERATOR Work Phone: [facility] 12-02-2022 10:35-0400 Body temperature 97.39 [degF] Deneen Isabelle HYDRAULIC BULL RIVETER OPERATOR Work Phone: [facility] 12-02-2022 10:35-0400 Diastolic blood pressure 68 mm[Hg] Deneen Isabelle HYDRAULIC BULL RIVETER OPERATOR Work Phone: [facility] 12-02-2022 10:35-0400 Heart rate 85 /min Deneen Isabelle HYDRAULIC BULL RIVETER OPERATOR Work Phone: [facility] 12-02-2022 10:35-0400 Respiratory rate 18 /min Deneen Isabelle HYDRAULIC BULL RIVETER OPERATOR Work Phone: [facility] 12-02-2022 10:35-0400 SaO2% (BldA) [Mass fraction] 97 % Deneen Isabelle HYDRAULIC BULL RIVETER OPERATOR Work Phone: [facility] 12-02-2022 10:35-0400 Systolic blood pressure 118 mm[Hg] Deneen Isabelle HYDRAULIC BULL RIVETER OPERATOR Work Phone: [facility] 11-29-2022 10:37-0500 Body temperature 98.2 [degF] Deneen Isabelle HYDRAULIC BULL RIVETER OPERATOR Work Phone: [facility] 11-29-2022 10:37-0500 Diastolic blood pressure 78 mm[Hg] Deneen Isabelle HYDRAULIC BULL RIVETER OPERATOR Work Phone: [facility] 11-29-2022 10:37-0500 Heart rate 72 /min Deneen Isabelle HYDRAULIC BULL RIVETER OPERATOR Work Phone: [facility] 11-29-2022 10:37-0500 Respiratory rate 18 /min Deneen Isabelle HYDRAULIC BULL RIVETER OPERATOR Work Phone: [facility] 11-29-2022 10:37-0500 SaO2% (BldA) [Mass fraction] 98 % Deneen Isabelle HYDRAULIC BULL RIVETER OPERATOR Work Phone: [facility] 11-29-2022 10:37-0500 Systolic blood pressure 116 mm[Hg] Deneen Isabelle HYDRAULIC BULL RIVETER OPERATOR Work Phone: [facility] 11-27-2022 12:11-0500 Body temperature 98.49 [degF] Deneen Isabelle HYDRAULIC BULL RIVETER OPERATOR Work Phone: [facility] 11-27-2022 12:11-0500 Diastolic blood pressure 76 mm[Hg] Deneen Isabelle HYDRAULIC BULL RIVETER OPERATOR Work Phone: [facility] 11-27-2022 12:11-0500 Heart rate 92 /min Deneen Isabelle HYDRAULIC BULL RIVETER OPERATOR Work Phone: [facility] 11-27-2022 12:11-0500 Respiratory rate 18 /min Deneen Isabelle HYDRAULIC BULL RIVETER OPERATOR Work Phone: [facility] 11-27-2022 12:11-0500 SaO2% (BldA) [Mass fraction] 98 % Deneen Isabelle HYDRAULIC BULL RIVETER OPERATOR Work Phone: [facility] 11-27-2022 12:11-0500 Systolic blood pressure 118 mm[Hg] Deneen Isabelle HYDRAULIC BULL RIVETER OPERATOR Work Phone: [facility] 11-25-2022 13:20-0500 Body temperature 98.01 [degF] Deneen Isabelle HYDRAULIC BULL RIVETER OPERATOR Work Phone: [facility] 11-25-2022 13:20-0500 Diastolic blood pressure 66 mm[Hg] Deneen Isabelle HYDRAULIC BULL RIVETER OPERATOR Work Phone: [facility] 11-25-2022 13:20-0500 Heart rate 93 /min Deneen Isabelle HYDRAULIC BULL RIVETER OPERATOR Work Phone: [facility] 11-25-2022 13:20-0500 Respiratory rate 18 /min Deneen Isabelle HYDRAULIC BULL RIVETER OPERATOR Work Phone: [facility] 11-25-2022 13:20-0500 SaO2% (BldA) [Mass fraction] 97 % Deneen Isabelle HYDRAULIC BULL RIVETER OPERATOR Work Phone: [facility] 11-25-2022 13:20-0500 Systolic blood pressure 118 mm[Hg] Deneen Isabelle HYDRAULIC BULL RIVETER OPERATOR Work Phone: [facility] 11-22-2022 10:13-0500 Body temperature 97.9 [degF] Cris Ortega-Vernon PT Work Phone: [facility] 11-22-2022 10:13-0500 Diastolic blood pressure 60 mm[Hg] Cris Ortega-Vernon PT Work Phone: [facility] 11-22-2022 10:13-0500 Heart rate 90 /min Cris Ortega-Junior PT Work Phone: [facility] 11-22-2022 10:13-0500 Respiratory rate 18 /min Cris Ortega-Junior PT Work Phone: [facility] 11-22-2022 10:13-0500 SaO2% (BldA) [Mass fraction] 99 % Cris Ortega-Junior PT Work Phone: [facility] 11-22-2022 10:13-0500 Systolic blood pressure 110 mm[Hg] Cris Halrosemarieman-Junior PT Work Phone: [facility] 11-20-2022 13:10-0500 Heart rate 95 /min Heather Rangel PT Work Phone: [facility] 11-20-2022 13:10-0500 SaO2% (BldA) [Mass fraction] 99 % Heather Rangel PT Work Phone: [facility] 11-20-2022 13:05-0500 Body temperature 98.71 [degF] Heather Pimentelger PT Work Phone: [facility] 11-20-2022 13:05-0500 Diastolic blood pressure 60 mm[Hg] Heather San Fidel PT Work Phone: [facility] 11-20-2022 13:05-0500 Respiratory rate 18 /min Heather Pimentelger PT Work Phone: [facility] 11-20-2022 13:05-0500 Systolic blood pressure 104 mm[Hg] Heather Juan Carlos PT Work Phone: [facility] 11-06-2022 10:18-0500 Body height 166.4 cm Jesusita Kalka PA-C Work Phone: [facility] 11-06-2022 10:18-0500 Body weight 67.18 kg Jesusita Kalka PA-C Work Phone: [facility] 11-06-2022 10:18-0500 Diastolic blood pressure 72 mm[Hg] Jesusita Kalka PA-C Work Phone: [facility] 11-06-2022 10:18-0500 Heart rate 90 /min Jesusita Kalka PA-C Work Phone: [facility] 11-06-2022 10:18-0500 Systolic blood pressure 122 mm[Hg] Jesusita Kalka PA-C Work Phone: [facility] 11-01-2022 08:07-0500 Body height 167.6 cm Pacc 1 Work Phone: [facility] 11-01-2022 08:07-0500 Body temperature 97.7 [degF] Pacc 1 Work Phone: [facility] 11-01-2022 08:07-0500 Body weight 67.59 kg Pacc 1 Work Phone: [facility] 11-01-2022 08:07-0500 Diastolic blood pressure 60 mm[Hg] Pacc 1 Work Phone: [facility] 11-01-2022 08:07-0500 Heart rate 95 /min Pacc 1 Work Phone: [facility] 11-01-2022 08:07-0500 Respiratory rate 16 /min Pacc 1 Work Phone: [facility] 11-01-2022 08:07-0500 SaO2% (BldA) [Mass fraction] 98 % Pacc 1 Work Phone: [facility] 11-01-2022 08:07-0500 Systolic blood pressure 106 mm[Hg] Pacc 1 Work Phone: [facility] 09-10-2022 13:39-0500 Body temperature 97.5 [degF] Dr. Fran Peguero Work Phone: [facility] Work Phone: 09-10-2022 13:39-0500 Diastolic blood pressure 67 mm[Hg] Dr. Fran Peguero Work Phone: [facility] Work Phone: 09-10-2022 13:39-0500 Heart rate 84 /min Dr. Fran Peguero Work Phone: [facility] Work Phone: 09-10-2022 13:39-0500 Respiratory rate 16 /min Dr. Fran Peguero Work Phone: [facility] Work Phone: 09-10-2022 13:39-0500 SaO2% (BldA) [Mass fraction] 99 % Dr. Fran Peguero Work Phone: [facility] Work Phone: 09-10-2022 13:39-0500 Systolic blood pressure 131 mm[Hg] Dr. Fran Peguero Work Phone: [facility] Work Phone: 09-10-2022 11:22-0500 Body height 165.[address] Fran Peguero Work Phone: [facility] Work Phone: 09-10-2022 11:22-0500 Body mass index (BMI) [Ratio] 23.1 kg/m2 Dr. Fran Peguero Work Phone: [facility] Work Phone: 09-10-2022 11:22-0500 Body weight 63.[address] Fran Peguero Work Phone: [facility] Work Phone: 09-06-2022 04:38-0500 Diastolic blood pressure 71 mm[Hg] Dr. Fran Peguero Work Phone: [facility] Work Phone: 09-06-2022 04:38-0500 Heart rate 68 /min Dr. Fran Peguero Work Phone: [facility] Work Phone: 09-06-2022 04:38-0500 Respiratory rate 13 /min Dr. Fran Peguero Work Phone: [facility] Work Phone: 09-06-2022 04:38-0500 SaO2% (BldA) [Mass fraction] 96 % Dr. Fran Peguero Work Phone: [facility] Work Phone: 09-06-2022 04:38-0500 Systolic blood pressure 116 mm[Hg] Dr. Fran Peguero Work Phone: [facility] Work Phone: 09-06-2022 04:19-0500 Body temperature 97.8 [degF] Dr. Fran Peguero Work Phone: [facility] Work Phone: 09-06-2022 02:23-0500 Body mass index (BMI) [Ratio] 23.8 kg/m2 Dr. Fran Peguero Work Phone: [facility] Work Phone: 09-06-2022 02:23-0500 Body weight 65.[address] Fran Peguero Work Phone: [facility] Work Phone: 09-03-2022 11:56-0500 Body temperature 98.6 [degF] Dr. Fran Peguero Work Phone: [facility] Work Phone: 09-03-2022 11:56-0500 Diastolic blood pressure 62 mm[Hg] Dr. Fran Peguero Work Phone: [facility] Work Phone: 09-03-2022 11:56-0500 Heart rate 98 /min Dr. Fran Peguero Work Phone: [facility] Work Phone: 09-03-2022 11:56-0500 Respiratory rate 16 /min Dr. Fran Peguero Work Phone: [facility] Work Phone: 09-03-2022 11:56-0500 SaO2% (BldA) [Mass fraction] 98 % Dr. Fran Peguero Work Phone: [facility] Work Phone: 09-03-2022 11:56-0500 Systolic blood pressure 122 mm[Hg] Dr. Fran Peguero Work Phone: [facility] Work Phone: 08-28-2022 11:10-0500 Body height 166.4 cm Peace Hunt PA-C Work Phone: [facility] 08-28-2022 11:10-0500 Body temperature 97.39 [degF] Peace Hunt PA-C Work Phone: [facility] 08-28-2022 11:10-0500 Body weight 65.59 kg Peace Hunt PA-C Work Phone: [facility] 08-28-2022 11:10-0500 Diastolic blood pressure 65 mm[Hg] Peace Hunt PA-C Work Phone: [facility] 08-28-2022 11:10-0500 Heart rate 83 /min Peace Hunt PA-C Work Phone: [facility] 08-28-2022 11:10-0500 Systolic blood pressure 107 mm[Hg] Peace Rappti PA-C Work Phone: [facility] 08-13-2022 13:12-0500 Body height 166.4 cm Lanny Maguire MD Work Phone: [facility] 08-13-2022 13:12-0500 Body temperature 97.11 [degF] Lanny Maguire MD Work Phone: [facility] 08-13-2022 13:12-0500 Body weight 65.77 kg Lanny Maguire MD Work Phone: [facility] 08-13-2022 13:12-0500 Diastolic blood pressure 60 mm[Hg] Lanny Maguire MD Work Phone: [facility] 08-13-2022 13:12-0500 Heart rate 87 /min Lanny Maguire MD Work Phone: [facility] 08-13-2022 13:12-0500 Respiratory rate 16 /min Lanny Maguire MD Work Phone: [facility] 08-13-2022 13:12-0500 SaO2% (BldA) [Mass fraction] 97 % Lanny Maguire MD Work Phone: [facility] 08-13-2022 13:12-0500 Systolic blood pressure 113 mm[Hg] Lanny Maguire MD Work Phone: [facility] 07-08-2022 13:36-0400 Diastolic blood pressure 70 mm[Hg] Cris Del Valle PT Work Phone: [facility] 07-08-2022 13:36-0400 Heart rate 90 /min Cris Del Valle PT Work Phone: [facility] 07-08-2022 13:36-0400 SaO2% (BldA) [Mass fraction] 98 % Cris Del Valle PT Work Phone: [facility] 07-08-2022 13:36-0400 Systolic blood pressure 116 mm[Hg] Cris Del Valle PT Work Phone: [facility] 07-08-2022 12:50-0400 Body temperature 98.6 [degF] Cris Del Valle PT Work Phone: [facility] 07-08-2022 12:50-0400 Respiratory rate 16 /min Cris Del Valle PT Work Phone: [facility] 07-05-2022 11:40-0400 Body temperature 98.49 [degF] Deneen Isabelle HYDRAULIC BULL RIVETER OPERATOR Work Phone: [facility] 07-05-2022 11:40-0400 Diastolic blood pressure 78 mm[Hg] Deneen Isabelle HYDRAULIC BULL RIVETER OPERATOR Work Phone: [facility] 07-05-2022 11:40-0400 Heart rate 94 /min Deneen Isabelle HYDRAULIC BULL RIVETER OPERATOR Work Phone: [facility] 07-05-2022 11:40-0400 Respiratory rate 18 /min Deneen Isabelle HYDRAULIC BULL RIVETER OPERATOR Work Phone: [facility] 07-05-2022 11:40-0400 SaO2% (BldA) [Mass fraction] 96 % Deneen Isabelle HYDRAULIC BULL RIVETER OPERATOR Work Phone: [facility] 07-05-2022 11:40-0400 Systolic blood pressure 118 mm[Hg] Deneen Isabelle HYDRAULIC BULL RIVETER OPERATOR Work Phone: [facility] 07-03-2022 11:40-0400 Diastolic blood pressure 64 mm[Hg] Kassandra Alvarado OT/L Work Phone: [facility] 07-03-2022 11:40-0400 Heart rate 82 /min Kassandra Bousfield OT/L Work Phone: [facility] 07-03-2022 11:40-0400 SaO2% (BldA) [Mass fraction] 95 % Kassandra Bousfield OT/L Work Phone: [facility] 07-03-2022 11:40-0400 Systolic blood pressure 112 mm[Hg] Kassandra Bousfield OT/L Work Phone: [facility] 07-03-2022 10:48-0400 Body temperature 98.01 [degF] Kassandra Bousfield OT/L Work Phone: [facility] 07-02-2022 11:56-0400 Body temperature 98.01 [degF] Herman Blackert HYDRAULIC BULL RIVETER OPERATOR Work Phone: [facility] 07-02-2022 11:56-0400 Diastolic blood pressure 70 mm[Hg] Herman Blackert HYDRAULIC BULL RIVETER OPERATOR Work Phone: [facility] 07-02-2022 11:56-0400 Heart rate 87 /min Herman Blackert HYDRAULIC BULL RIVETER OPERATOR Work Phone: [facility] 07-02-2022 11:56-0400 Respiratory rate 16 /min Herman Blackert HYDRAULIC BULL RIVETER OPERATOR Work Phone: [facility] 07-02-2022 11:56-0400 SaO2% (BldA) [Mass fraction] 95 % Herman Blackert HYDRAULIC BULL RIVETER OPERATOR Work Phone: [facility] 07-02-2022 11:56-0400 Systolic blood pressure 118 mm[Hg] Herman Blackert HYDRAULIC BULL RIVETER OPERATOR Work Phone: [facility] 06-28-2022 11:37-0400 Diastolic blood pressure 60 mm[Hg] Kassandra Bousfield OT/L Work Phone: [facility] 06-28-2022 11:37-0400 Heart rate 84 /min Kassandra Bousfield OT/L Work Phone: [facility] 06-28-2022 11:37-0400 SaO2% (BldA) [Mass fraction] 95 % Kassandra Bousfield OT/L Work Phone: [facility] 06-28-2022 11:37-0400 Systolic blood pressure 118 mm[Hg] Kassandra Bousfield OT/L Work Phone: [facility] 06-28-2022 10:32-0400 Body temperature 98.29 [degF] Kassandra Bousfield OT/L Work Phone: [facility] 06-25-2022 12:23-0400 Body temperature 98.91 [degF] Deneen Isabelle HYDRAULIC BULL RIVETER OPERATOR Work Phone: [facility] 06-25-2022 12:23-0400 Diastolic blood pressure 68 mm[Hg] Deneen Isabelle HYDRAULIC BULL RIVETER OPERATOR Work Phone: [facility] 06-25-2022 12:23-0400 Heart rate 99 /min Deneen Isabelle HYDRAULIC BULL RIVETER OPERATOR Work Phone: [facility] 06-25-2022 12:23-0400 Respiratory rate 18 /min Deneen Isabelle HYDRAULIC BULL RIVETER OPERATOR Work Phone: [facility] 06-25-2022 12:23-0400 SaO2% (BldA) [Mass fraction] 97 % Deneen Isabelle HYDRAULIC BULL RIVETER OPERATOR Work Phone: [facility] 06-25-2022 12:23-0400 Systolic blood pressure 116 mm[Hg] Deneen Isabelle HYDRAULIC BULL RIVETER OPERATOR Work Phone: [facility] 06-24-2022 11:12-0400 Diastolic blood pressure 62 mm[Hg] Kassandra Bousfield OT/L Work Phone: [facility] 06-24-2022 11:12-0400 Heart rate 88 /min Kassandra Bousfield OT/L Work Phone: [facility] 06-24-2022 11:12-0400 SaO2% (BldA) [Mass fraction] 98 % Kassandra Bousfield OT/L Work Phone: [facility] 06-24-2022 11:12-0400 Systolic blood pressure 116 mm[Hg] Kassandra Bousfield OT/L Work Phone: [facility] 06-24-2022 11:08-0400 Body temperature 98.71 [degF] Deneen Isabelle HYDRAULIC BULL RIVETER OPERATOR Work Phone: [facility] 06-24-2022 11:08-0400 Diastolic blood pressure 62 mm[Hg] Deneen Isabelle HYDRAULIC BULL RIVETER OPERATOR Work Phone: [facility] 06-24-2022 11:08-0400 Heart rate 88 /min Deneen Isabelle HYDRAULIC BULL RIVETER OPERATOR Work Phone: [facility] 06-24-2022 11:08-0400 Respiratory rate 18 /min Deneen Isabelle HYDRAULIC BULL RIVETER OPERATOR Work Phone: [facility] 06-24-2022 11:08-0400 SaO2% (BldA) [Mass fraction] 96 % Deneen Isabelle HYDRAULIC BULL RIVETER OPERATOR Work Phone: [facility] 06-24-2022 11:08-0400 Systolic blood pressure 116 mm[Hg] Deneen Isabelle HYDRAULIC BULL RIVETER OPERATOR Work Phone: [facility] 06-24-2022 10:22-0400 Body temperature 98.1 [degF] Kassandra Paynefield OT/L Work Phone: [facility] 06-21-2022 10:10-0400 Body temperature 98.2 [degF] Deneen Isabelle HYDRAULIC BULL RIVETER OPERATOR Work Phone: [facility] 06-21-2022 10:10-0400 Diastolic blood pressure 72 mm[Hg] Deneen Isabelle HYDRAULIC BULL RIVETER OPERATOR Work Phone: [facility] 06-21-2022 10:10-0400 Heart rate 92 /min Deneen Isabelle HYDRAULIC BULL RIVETER OPERATOR Work Phone: [facility] 06-21-2022 10:10-0400 Respiratory rate 18 /min Deneen Isabelle HYDRAULIC BULL RIVETER OPERATOR Work Phone: [facility] 06-21-2022 10:10-0400 SaO2% (BldA) [Mass fraction] 98 % Deneen Isabelle HYDRAULIC BULL RIVETER OPERATOR Work Phone: [facility] 06-21-2022 10:10-0400 Systolic blood pressure 120 mm[Hg] Deenen Walton HYDRAULIC BULL RIVETER OPERATOR Work Phone: [facility] 06-20-2022 15:18-0400 Diastolic blood pressure 60 mm[Hg] Mis Genie PT Work Phone: [facility] 06-20-2022 15:18-0400 Heart rate 89 /min Mis Genie PT Work Phone: [facility] 06-20-2022 15:18-0400 Respiratory rate 16 /min Mis Genie PT Work Phone: [facility] 06-20-2022 15:18-0400 SaO2% (BldA) [Mass fraction] 98 % Mis Genie PT Work Phone: [facility] 06-20-2022 15:18-0400 Systolic blood pressure 110 mm[Hg] Mis Genie PT Work Phone: [facility] 06-20-2022 13:54-0400 Body temperature 99.1 [degF] Mis Genie PT Work Phone: [facility] 06-14-2022 09:57-0400 Body temperature 97.11 [degF] Treatment Wstr Work Phone: [facility] 06-14-2022 09:57-0400 Diastolic blood pressure 66 mm[Hg] Treatment Wstr Work Phone: [facility] 06-14-2022 09:57-0400 Heart rate 83 /min Treatment Wstr Work Phone: [facility] 06-14-2022 09:57-0400 Systolic blood pressure 121 mm[Hg] Treatment Wstr Work Phone: [facility] 06-13-2022 09:47-0400 Body temperature 97.5 [degF] Mino Harris MD Work Phone: [facility] 06-13-2022 09:47-0400 Body weight 65.95 kg Mino Harris MD Work Phone: [facility] 06-13-2022 09:47-0400 Diastolic blood pressure 59 mm[Hg] Mino Harris MD Work Phone: [facility] 06-13-2022 09:47-0400 Heart rate 79 /min Mino Harris MD Work Phone: [facility] 06-13-2022 09:47-0400 Systolic blood pressure 115 mm[Hg] Mino Harris MD Work Phone: [facility] 06-10-2022 11:09-0400 Body temperature 97.2 [degF] Treatment Wstr Work Phone: [facility] 06-10-2022 11:09-0400 Diastolic blood pressure 58 mm[Hg] Treatment Wstr Work Phone: [facility] 06-10-2022 11:09-0400 Heart rate 95 /min Treatment Wstr Work Phone: [facility] 06-10-2022 11:09-0400 Systolic blood pressure 106 mm[Hg] Treatment Wstr Work Phone: [facility] 06-07-2022 16:54-0400 Diastolic blood pressure 56 mm[Hg] Treatment Wstr Work Phone: [facility] 06-07-2022 16:54-0400 Heart rate 76 /min Treatment Wstr Work Phone: [facility] 06-07-2022 16:54-0400 Systolic blood pressure 118 mm[Hg] Treatment Wstr Work Phone: [facility] 06-07-2022 15:00-0400 Body temperature 98.01 [degF] Treatment Wstr Work Phone: [facility] 06-07-2022 15:00-0400 Respiratory rate 16 /min Treatment Wstr Work Phone: [facility] 06-07-2022 15:00-0400 SaO2% (BldA) [Mass fraction] 98 % Treatment Wstr Work Phone: [facility] 05-31-2022 11:17-0400 Body height 166.4 cm Pacc 1 Work Phone: [facility] 05-31-2022 11:17-0400 Body temperature 98.71 [degF] Pacc 1 Work Phone: [facility] 05-31-2022 11:17-0400 Body weight 66.68 kg Pacc 1 Work Phone: [facility] 05-31-2022 11:17-0400 Diastolic blood pressure 68 mm[Hg] Pacc 1 Work Phone: [facility] 05-31-2022 11:17-0400 Heart rate 83 /min Pacc 1 Work Phone: [facility] 05-31-2022 11:17-0400 Respiratory rate 16 /min Pacc 1 Work Phone: [facility] 05-31-2022 11:17-0400 SaO2% (BldA) [Mass fraction] 98 % Pacc 1 Work Phone: [facility] 05-31-2022 11:17-0400 Systolic blood pressure 128 mm[Hg] Pacc 1 Work Phone: [facility] 04-11-2022 14:09-0400 Body height 165.1 cm Anabela Palomares TRASH COLLECTOR.LINOTYPE MACHINIST APPRENTICE Work Phone: [facility] 04-11-2022 14:09-0400 Body weight 63.5 kg Anabela Palomares TRASH COLLECTOR.LINOTYPE MACHINIST APPRENTICE Work Phone: [facility] 04-11-2022 14:09-0400 Diastolic blood pressure 61 mm[Hg] Anabela Palomares TRASH COLLECTOR.LINOTYPE MACHINIST APPRENTICE Work Phone: [facility] 04-11-2022 14:09-0400 Heart rate 81 /min Anabela Palomares TRASH COLLECTOR.LINOTYPE MACHINIST APPRENTICE Work Phone: [facility] 04-11-2022 14:09-0400 Systolic blood pressure 115 mm[Hg] Anabela Palomares TRASH COLLECTOR.LINOTYPE MACHINIST APPRENTICE Work Phone: [facility] 03-04-2022 11:04-0400 Body height 165.1 cm Néstor Sánchez Jr., MD Work Phone: [facility] 03-04-2022 11:04-0400 Body temperature 98.49 [degF] Néstor Sánchez Jr., MD Work Phone: [facility] 03-04-2022 11:04-0400 Body weight 64.41 kg Néstor Sánchez Jr., MD Work Phone: [facility] 03-04-2022 11:04-0400 Diastolic blood pressure 68 mm[Hg] Néstor Sánchez Jr., MD Work Phone: [facility] 03-04-2022 11:04-0400 Heart rate 71 /min Néstor Sánchez Jr., MD Work Phone: [facility] 03-04-2022 11:04-0400 Respiratory rate 18 /min Néstor Sánchez Jr., MD Work Phone: [facility] 03-04-2022 11:04-0400 SaO2% (BldA) [Mass fraction] 100 % Néstor Sánchez Jr., MD Work Phone: [facility] 03-04-2022 11:04-0400 Systolic blood pressure 128 mm[Hg] Néstor Sánchez Jr., MD Work Phone: [facility] 02-19-2022 13:52-0400 Body height 163.8 cm Mino Harris MD Work Phone: [facility] 02-19-2022 13:52-0400 Body temperature 97.59 [degF] Mino Harris MD Work Phone: [facility] 02-19-2022 13:52-0400 Body weight 66.5 kg Mino Harris MD Work Phone: [facility] 02-19-2022 13:52-0400 Diastolic blood pressure 60 mm[Hg] Mino Harris MD Work Phone: [facility] 02-19-2022 13:52-0400 Heart rate 97 /min Mino Harris MD Work Phone: [facility] 02-19-2022 13:52-0400 Systolic blood pressure 116 mm[Hg] Mino Harris MD Work Phone: [facility] Encounters Encounter Date Encounter Type Care Provider Facility Start: 01-04-2025 End: 02-04-2025 ambulatory Timbo Bright MD Work Phone: [facility] [place] Start: 12-31-2024 End: 12-31-2024 Refill Mino Harris MD Work Phone: Rheumatology Comment on above: Refill Request Start: 12-15-2024 End: 12-15-2024 ambulatory MINO HARRIS Facility:[facility] Start: 12-15-2024 End: 12-15-2024 Subsequent hospital visit by physician [facility]it [facility] Comment on above: Rheumatoid arthritis involving multiple sites with positive rheumatoid factor (HCC) [M05.79] Start: 12-15-2024 End: 12-15-2024 ambulatory MINO HARRIS Facility:[facility] Start: 12-15-2024 End: 12-15-2024 Office outpatient visit 40 minutes Mino Harris MD Work Phone: [facility] Comment on above: Rheumatoid arthritis involving multiple sites with positive rheumatoid factor (HCC) (Primary Dx); 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; Chronic pain of left knee Start: 11-06-2024 End: 11-06-2024 ambulatory TIMBO BRIGHT Facility:[facility] Start: 11-06-2024 End: 11-06-2024 Office outpatient new 30 minutes Reilly Culp PA-C Work Phone: [facility] Comment on above: Acute non-recurrent sinusitis, unspecified location (Primary Dx) Start: 10-23-2024 End: 10-23-2024 ambulatory TIMBO BRIGHT Facility:[facility] Start: 10-23-2024 End: 10-23-2024 Subsequent hospital visit by physician [facility] Work Phone: Radiology Comment on above: Acute pain of left k nee [M25.562] Start: 10-21-2024 End: 10-22-2024 Telephone encounter Mino Harris MD Work Phone: Rheumatology Comment on above: Patient Update; Elis ent Question Start: 10-18-2024 End: 10-22-2024 Telephone encounter Timbo Bright MD Work Phone: [facility] [place] Comment on above: Orders; Patient Upda te Start: 09-19-2024 End: 09-19-2024 ambulatory Herman Goss NP Facility:[facility] Start: 07-27-2024 End: 07-28-2024 Refill Mino Harris MD Work Phone: [facility] Comment on above: Refill Request Start: 07-19-2024 End: 07-20-2024 Refill Mino Harris MD Work Phone: Rheumatology Comment on above: Med Change Request Start: 06-10-2024 End: 06-10-2024 ambulatory MINO HARRIS Facility:[facility] Start: 06-10-2024 End: 06-10-2024 Office outpatient visit 40 minutes Mino Harris MD Work Phone: Rheumatology Comment on above: Rheumatoid arthritis involving multiple sites with positive rheumatoid factor (HCC) (Primary Dx); 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; Synovitis of hand Start: 05-28-2024 End: 05-28-2024 ambulatory TIMBO BRIGHT Facility:[facility] Start: 05-28-2024 End: 05-28-2024 Office outpatient visit 25 minutes Ev Berger APRN.CNS Work Phone: [facility] [place] Comment on above: Acquired hypothyroid ism (Primary Dx); NIKO (obstructive sleep apnea); Rheumatoid arthritis of multiple sites without organ or system involvement with positive rheumatoid factor (HCC); Screening for cervical cancer; Encounter for immunization; Screening for depression; Encounter for screening examination for other mental health and behavioral disorders Start: 05-27-2024 End: 05-28-2024 Refill Mino Harris MD Work Phone: [facility] Comment on above: Refill Request Start: 05-16-2024 End: 05-16-2024 Emergency department patient visit GHAZALA HOOVER MD [facility] Start: 05-01-2024 End: 05-01-2024 ambulatory TIMBO Renard HUFFSALINAS Facility:[facility] Start: 05-01-2024 Encounter for genera l adult medical examination without abnormal findings TIMBO KAILA [facility] Start: 04-29-2024 Patient encounter status Timbo Bright MD Work Phone: [facility] Start: 04-29-2024 Refill Timbo schofield MD Work Phone: [facility] [place] Comment on above: Refill Request; Lab Order Start: 03-13-2024 End: 03-13-2024 ambulatory TIMBO Renard HUFFSALINAS Facility:[facility] Start: 02-27-2024 Telephone encounter Mino lee MD Work Phone: Rheumatology Comment on above: Patient Question Start: 02-04-2024 ambulatory Timbo schofield MD Work Phone: Internal [facility] Start: 12-30-2023 Refill Peace Hunt PA-C Work Phone: [facility] Comment on above: Refill Request Start: 12-16-2023 Telephone encounter Mino lee MD Work Phone: Rheumatology Comment on above: Patient Update; Elis ent Question Start: 12-10-2023 End: 12-10-2023 Patient encounter procedure Jesusita Kohler PA-C Work Phone: [facility] Comment on above: Helicobacter pylori infection (Primary Dx); History of colonic polyps Start: 09-05-2023 Telephone encounter Jesusita orta PA-C Work Phone: [facility] Comment on above: Coordination of care Start: 09-03-2023 Telephone encounter Jesusita MELLO-Delfina Work Phone: [facility] Comment on above: Results Start: 08-29-2023 End: 08-29-2023 Subsequent hospital visit by physician Buck Shepherd MD Work Phone: Ambulatory Surgery Comment on above: Gastroesophageal ref lux disease, unspecified whether esophagitis present [K21.9] Start: 08-22-2023 ambulatory Buck Shepherd MD Work Phone: Ambulatory Surgery Start: 08-20-2023 Refill Mino Ignacio Work Phone: [facility] Comment on above: Refill Request Start: 07-29-2023 Refill Peace Hunt PA-C Work Phone: Rheumatology [facility] Comment on above: Refill Request Start: 07-11-2023 Refill Carmen Conley delfina PA-C Work Phone: [facility] Comment on above: Refill Request Start: 04-16-2023 End: 04-16-2023 Subsequent hospital visit by physician [facility] Work Phone: Radiology Comment on above: S/P total knee repla cement, left [Z96.652] Start: 03-27-2023 ambulatory [facility] Provider Shane lugo Comment on above: Contact PCP Start: 03-27-2023 E-mail encounter meera m caregiver [facility] Provider [facility] Start: 03-26-2023 End: 03-26-2023 ambulatory Mino Harris MD Work Phone: [facility] Comment on above: Rheumatoid arthritis involving multiple sites with positive rheumatoid factor (HCC) (Primary Dx); Long-term use of immunosuppressant medication; Joint swelling Start: 03-26-2023 End: 03-26-2023 Telemedicine consultation with patient Mino Harris MD Work Phone: [facility] Start: 03-18-2023 End: 03-18-2023 Subsequent hospital visit by physician Tee Batres MD Work Phone: Ambulatory Surgery Comment on above: Blood in stool [K92. 1] Start: 03-15-2023 Orders Only Lito Botello MD Work Phone: [facility] [place] Start: 03-13-2023 Telephone encounter Mino lee MD Work Phone: Rheumatology Comment on above: Patient Question Start: 03-04-2023 Telephone encounter Timbo claros MD Work Phone: [facility] [place] Comment on above: Future Appointment Start: 02-26-2023 End: 02-26-2023 Patient encounter status Timbo Bright MD Work Phone: [facility] [place] Start: 02-26-2023 End: 02-26-2023 Periodic preventive med est patient 40-64yrs Timbo Bright MD Work Phone: [facility] [place] Comment on above: Routine medical exam (Primary Dx); Breast cancer screening by mammogram; Gastroesophageal reflux disease without esophagitis; Acquired hypothyroidism; Anemia, unspecified type; Rheumatoid arthritis of multiple sites without organ or system involvement with positive rheumatoid factor (HCC); Elevated ferritin; Iron deficiency anemia, unspecified iron deficiency anemia type; Vitamin D deficiency; Encounter for long-term current use of medication Start: 02-23-2023 Refill Peace Hunt PA-C Work Phone: [facility] Comment on above: Refill Request Start: 02-19-2023 End: 02-19-2023 ambulatory Anival Ambriz MD Work Phone: Orthopaedics Comment on above: Status post total le ft knee replacement (Primary Dx) Start: 02-19-2023 End: 02-19-2023 Telemedicine consultation with patient Anival Ambriz MD Work Phone: [facility] Start: 02-03-2023 Telephone encounter Timbo claros MD Work Phone: [facility] [place] Comment on above: Orders Refill Request Start: 01-28-2023 End: 01-28-2023 ambulatory Keshawn Davidson PT [facility] Comment on above: S/P total knee arthr oplasty, left (Primary Dx); Primary osteoarthritis of left knee Start: 01-21-2023 End: 01-21-2023 ambulatory Keshawn Davidson PT [facility] Comment on above: S/P total knee arthr oplasty, left (Primary Dx); Primary osteoarthritis of left knee Start: 01-13-2023 End: 01-13-2023 ambulatory Heena Dumont PT Work Phone: [facility] Comment on above: S/P total knee arthr oplasty, left (Primary Dx); Primary osteoarthritis of left knee Start: 01-09-2023 End: 01-09-2023 ambulatory Heena Dumont PT Work Phone: [facility] Comment on above: S/P total knee arthr oplasty, left (Primary Dx); Primary osteoarthritis of left knee Start: 01-02-2023 End: 01-02-2023 ambulatory Daniela Maravilla HYDRAULIC BULL RIVETER OPERATOR Work Phone: [facility] Comment on above: S/P total knee arthr oplasty, left (Primary Dx); Primary osteoarthritis of left knee Start: 12-30-2022 ambulatory Anival cooley MD Work Phone: Orthopaedics Comment on above: Post op Knee questio n Start: 12-26-2022 End: 12-26-2022 ambulatory Heena Dumont PT Work Phone: [facility] Comment on above: S/P total knee arthr oplasty, left (Primary Dx); Primary osteoarthritis of left knee Start: 12-24-2022 End: 12-24-2022 Patient encounter procedure Goldie Villafuerte APRN.LINOTYPE MACHINIST APPRENTICE Work Phone: [facility] [place] Comment on above: Pigmented skin lesio n of 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 (Primary Dx); Skin lesion; Painful skin lesion; Abnormal skin growth Start: 12-24-2022 End: 12-24-2022 ambulatory Heena Dumont PT Work Phone: [facility] Comment on above: S/P total knee arthr oplasty, left (Primary Dx); Primary osteoarthritis of left knee Start: 12-20-2022 Telephone encounter Peace john PA-C Work Phone: Rheumatology Comment on above: Patient Question Start: 12-17-2022 End: 12-17-2022 ambulatory Heena Dumont PT Work Phone: [facility] Comment on above: S/P total knee arthr oplasty, left (Primary Dx); Primary osteoarthritis of left knee Start: 12-13-2022 ambulatory Timbo schofield MD Work Phone: [facility] [place] Comment on above: Mole removal Start: 12-12-2022 End: 12-12-2022 ambulatory Alhaji D Decapua PA-C Work Phone: Orthopaedics Comment on above: Status post left kne e replacement (Primary Dx) S/P total knee arthr oplasty, left (Primary Dx); Primary osteoarthritis of left knee; Status post total left knee replacement Start: 12-12-2022 End: 12-12-2022 Telemedicine consultation with patient Alhaji D Decapua PA-C Work Phone: [facility] Start: 12-12-2022 End: 12-12-2022 Subsequent hospital visit by physician [facility] [place] Work Phone: Radiology Comment on above: Primary osteoarthrit is of left knee [M17.12] Start: 12-11-2022 ambulatory Timbo schofield MD Work Phone: Internal [facility] [place] Comment on above: Derm Problem Start: 12-10-2022 ambulatory Alhaji D Decapu a PA-C Work Phone: [facility] Start: 12-10-2022 Patient encounter procedure Alhaji D Decapua PA-C Work Phone: Orthopaedics Comment on above: Appointment for 12/12 Start: 12-10-2022 End: 12-10-2022 Home visit Cris Del Valle PT Work Phone: [facility] Comment on above: PT AGENCY DC W VISIT Start: 12-06-2022 Telephone encounter Deneen Booth on HYDRAULIC BULL RIVETER OPERATOR Work Phone: [facility] Comment on above: Home Care (Knee pain ) Refill Request Start: 12-05-2022 ambulatory Alhaji D Decapu a PA-C Work Phone: Orthopaedics Comment on above: Xray Start: 12-04-2022 End: 12-04-2022 Home visit Deneen Walton HYDRAULIC BULL RIVETER OPERATOR Work Phone: [facility] Comment on above: HYDRAULIC BULL RIVETER OPERATOR ROUTINE Start: 12-02-2022 End: 12-02-2022 Home visit Deneen Walton HYDRAULIC BULL RIVETER OPERATOR Work Phone: [facility] Comment on above: HYDRAULIC BULL RIVETER OPERATOR ROUTINE Start: 11-29-2022 End: 11-29-2022 Home visit Deneen Walton HYDRAULIC BULL RIVETER OPERATOR Work Phone: [facility] Comment on above: HYDRAULIC BULL RIVETER OPERATOR ROUTINE Start: 11-27-2022 End: 11-27-2022 Home visit Deneen Walton HYDRAULIC BULL RIVETER OPERATOR Work Phone: [facility] Comment on above: HYDRAULIC BULL RIVETER OPERATOR ROUTINE Start: 11-26-2022 Telephone encounter Deneen Booth on HYDRAULIC BULL RIVETER OPERATOR Work Phone: [facility] Comment on above: Home Care (Bandage r emoval/OP PT orders) Start: 11-25-2022 End: 11-25-2022 Home visit Deneen Walton HYDRAULIC BULL RIVETER OPERATOR Work Phone: [facility] Comment on above: HYDRAULIC BULL RIVETER OPERATOR ROUTINE Start: 11-22-2022 End: 11-22-2022 Home visit Cris Del Valle PT Work Phone: [facility] Comment on above: PT CASE MANAGEMENT V ISIT Start: 11-20-2022 ambulatory Lauren Crespo RN NURSE ELECTRODYNAMICIST Comment on above: Pain Start: 11-20-2022 Refill Peace Hunt PA-C Work Phone: [facility] Comment on above: Refill Request Start: 11-20-2022 Telephone encounter Lito ward MD Work Phone: Orthopaedics Comment on above: Pain Status post knee rep lacement, unspecified laterality Start: 11-20-2022 End: 11-20-2022 Home visit Heather Rangel PT Work Phone: [facility] Comment on above: PT SOC Start: 11-18-2022 Telephone encounter Tarsha Schofield [facility] Comment on above: Home Care (Confirmat ion Call) Start: 11-18-2022 End: 11-19-2022 ambulatory ANIVAL AMBRIZ Facility:[facility] Start: 11-06-2022 End: 11-06-2022 Patient encounter procedure Jesusita Kohler PA-C Work Phone: G[facility] [place] Comment on above: Gastroesophageal ref lux disease, unspecified whether esophagitis present (Primary Dx); Blood in stool; Lower abdominal pain; Elevated ferritin Start: 11-04-2022 Refill Timbo schofield MD Work Phone: [facility] Comment on above: Refill Request Start: 11-01-2022 End: 11-01-2022 Admission to establishment [facility] 1 Work Phone: [facility] Start: 11-01-2022 End: 11-01-2022 ambulatory [facility] 1 Work Phone: Pre Anesthesia Comment on above: Pre-operative examin ation (Primary Dx); Rheumatoid arthritis involving both knees with positive rheumatoid factor (HCC); Raynaud's phenomenon without gangrene; Moderate obstructive sleep apnea; Iron deficiency anemia, unspecified iron deficiency anemia type; Other specified hypothyroidism; Gastroesophageal reflux disease without esophagitis; Exercise-induced asthma; Awareness of heartbeats; Status post right knee replacement; Anemia, unspecified type Start: 11-01-2022 End: 11-01-2022 Preprocedural examination done [facility] Work Phone: Pre Anesthesia Start: 10-01-2022 End: 10-01-2022 Subsequent hospital visit by physician [facility] Work Phone: Radiology Comment on above: Primary osteoarthrit is of right hip [M16.11] Start: 09-10-2022 Telephone encounter Timbo claros MD Work Phone: [facility] [place] Comment on above: COVID positive sympt oms persisting Start: 09-10-2022 End: 09-10-2022 Emergency department patient visit Dr. Fran Peguero Work Phone: [facility]Emergency Department Start: 09-09-2022 ambulatory Anival cooley MD Work Phone: Orthopaedics Comment on above: Return to work Start: 09-06-2022 End: 09-06-2022 Office outpatient visit 40 minutes Timbo Bright MD Work Phone: Internal Medicine [place] Comment on above: COVID-19 virus infec tion (Primary Dx); Influenza A; Acute asthmatic bronchitis Start: 09-06-2022 End: 09-06-2022 Emergency department patient visit Dr. Fran Peguero Work Phone: [facility]Emergency Department Start: 09-03-2022 End: 09-03-[address] Fran Peguero Work Phone: [facility] Start: 08-28-2022 End: 08-28-2022 Patient encounter procedure Peace Hunt PA-C Work Phone: [facility] Comment on above: Rheumatoid arthritis involving multiple sites with positive rheumatoid factor (HCC) (Primary Dx); High risk medication use; Asymptomatic postmenopausal status; Scapular dysfunction Start: 08-14-2022 Telephone encounter Mino lee MD Work Phone: Rheumatology Comment on above: Patient Update Start: 08-13-2022 End: 08-14-2022 ambulatory MINO HARRIS Facility:[facility] Start: 08-13-2022 End: 08-13-2022 Patient encounter procedure Lanny Maguire MD Work Phone: Allergy Comment on above: Adverse effect of co ntrast media, initial encounter (Primary Dx); Adverse effect of drug, initial encounter; Chronic rhinitis Start: 08-08-2022 Orders Only Mino Ignacio Work Phone: Rheumatology Comment on above: Allergy to imaging c ontrast media (Primary Dx) Medication Problem Start: 08-07-2022 Refill Timbo schofield MD Work Phone: Internal Medicine [place] Comment on above: Refill Request; Refi ll Request Start: 08-06-2022 Orders Only Mino Ignacio Work Phone: [facility] Comment on above: Rheumatoid arthritis involving multiple sites with positive rheumatoid factor (HCC) (Primary Dx) Medication Problem Start: 07-29-2022 Telephone encounter Mino lee MD Work Phone: Rheumatology Comment on above: Medication Authoriza tion (kevzara) Start: 07-25-2022 Telephone encounter Mino lee MD Work Phone: Rheumatology Comment on above: Patient Question; Pa tient Update Start: 07-18-2022 End: 07-18-2022 Nursing evaluation of patient and report Issa Mcdonald RN Work Phone: Orthopaedics Comment on above: S/P hip replacement, right (Primary Dx) Start: 07-08-2022 End: 07-08-2022 Home visit Cris Del Valle PT Work Phone: [facility] Comment on above: PT AGENCY DC W VISIT Start: 07-05-2022 End: 07-05-2022 Home visit Deneenshalini Mishraion HYDRAULIC BULL RIVETER OPERATOR Work Phone: [facility] Comment on above: HYDRAULIC BULL RIVETER OPERATOR ROUTINE Start: 07-03-2022 End: 07-03-2022 Home visit Kassandra Alvarado OT/L Work Phone: [facility] Comment on above: OT ROUTINE WITH BATH Start: 07-02-2022 Telephone encounter Mino lee MD Work Phone: Rheumatology Comment on above: Medication Question Start: 07-02-2022 End: 07-02-2022 Home visit Herman Merino HYDRAULIC BULL RIVETER OPERATOR Work Phone: [facility] Comment on above: HYDRAULIC BULL RIVETER OPERATOR ROUTINE Start: 07-01-2022 Orders Only Mino Ignacio Work Phone: [facility] Start: 06-28-2022 Telephone encounter Kassandra colby OT/L Work Phone: [facility] Comment on above: Home Care (Medicatio n question) Start: 06-28-2022 End: 06-28-2022 Home visit Kassandra Alvarado OT/L Work Phone: [facility] Comment on above: OT ROUTINE WITH BATH Start: 06-25-2022 End: 06-25-2022 Home visit Deneen Walton HYDRAULIC BULL RIVETER OPERATOR Work Phone: [facility] Comment on above: HYDRAULIC BULL RIVETER OPERATOR ROUTINE Start: 06-24-2022 End: 06-24-2022 Refill Anival Ambriz MD Work Phone: Orthopaedics Comment on above: Refill Request HYDRAULIC BULL RIVETER OPERATOR ROUTINE OT EVAL Start: 06-21-2022 End: 06-21-2022 Home visit Deneen Walton HYDRAULIC BULL RIVETER OPERATOR Work Phone: [facility] Comment on above: HYDRAULIC BULL RIVETER OPERATOR ROUTINE Start: 06-20-2022 End: 06-20-2022 Home visit Mis Genie PT Work Phone: [facility] Comment on above: PT SOC Start: 06-19-2022 Refill Mino Ignacio Work Phone: Rheumatology Comment on above: Refill Request Start: 06-18-2022 Telephone encounter Evie Huitron [facility] Comment on above: Home Care (CONFIRMAT ION CALL) Start: 06-18-2022 End: 06-19-2022 ambulatory ANIVAL AMBRIZ Facility:[facility] Start: 06-14-2022 End: 06-14-2022 ambulatory Treatment Rm 11 [facility] Work Phone: Hematology/Oncology Comment on above: Iron deficiency anem ia, unspecified iron deficiency anemia type (Primary Dx) Start: 06-13-2022 Telephone encounter Anival noyola MD Work Phone: Orthopaedics Comment on above: FMLA Paperwork (Form s completed and faxed to employer.) Start: 06-13-2022 End: 06-13-2022 Patient encounter procedure Mino Harris MD Work Phone: Rheumatology Comment on above: Rheumatoid arthritis involving multiple sites with positive rheumatoid factor (HCC) (Primary Dx); High risk medication use; Avascular necrosis (HCC) Start: 06-11-2022 ambulatory Alhaji corbin PA-C Work Phone: Orthopaedics Start: 06-10-2022 End: 06-10-2022 ambulatory Treatment Rm 10 [facility] Work Phone: Hematology/Oncology Comment on above: Iron deficiency anem ia, unspecified iron deficiency anemia type (Primary Dx) Start: 06-07-2022 End: 06-07-2022 ambulatory Treatment Rm 12 [facility] Work Phone: Hematology/Oncology Comment on above: Iron deficiency anem ia, unspecified iron deficiency anemia type (Primary Dx) Start: 06-06-2022 Telephone encounter Sunday santo DO Work Phone: Hematology/Oncology Comment on above: Appointment Start: 06-05-2022 Telephone encounter Celine Iqbal PA-C Work Phone: [facility] [place] Start: 06-04-2022 Telephone encounter Mnio lee MD Work Phone: Rheumatology Comment on above: Medication Question Start: 05-31-2022 End: 05-31-2022 Admission to establishment [facility] [place] 1 Work Phone: [facility] Start: 05-31-2022 End: 05-31-2022 ambulatory Pac [place] 1 Work Phone: Pre Anesthesia Comment on above: Pre-operative examin ation (Primary Dx); Primary osteoarthritis of right hip; Anemia, unspecified type; Exercise-induced asthma; Gastroesophageal reflux disease without esophagitis; Other specified hypothyroidism; Intractable migraine with aura without status migrainosus; Moderate obstructive sleep apnea; Rheumatoid arthritis involving both knees with positive rheumatoid factor (HCC); Status post right knee replacement; Raynaud's phenomenon without gangrene Start: 05-31-2022 End: 05-31-2022 Preprocedural examination done Pac [place] 1 Work Phone: Pre Anesthesia Start: 05-30-2022 ambulatory Anival cooley MD Work Phone: Orthopaedics Comment on above: Left knee Start: 05-13-2022 ambulatory Anival cooley MD Work Phone: Orthopaedics Start: 05-13-2022 Telephone encounter Anival noyola MD Work Phone: Orthopaedics Comment on above: Opened In Error Start: 05-09-2022 Refill Anabela Palomares TRASH COLLECTOR.LINOTYPE MACHINIST APPRENTICE Work Phone: Gastroenterolgy Comment on above: Refill Request Start: 05-06-2022 End: 05-06-2022 Subsequent hospital visit by physician Orth General Xray A21 Radiology Comment on above: Pain in both knees, unspecified chronicity [M25.561, M25.562] Start: 04-18-2022 ambulatory Anival cooley MD Work Phone: Orthopaedics Comment on above: Xray Start: 04-16-2022 Telephone encounter Mino lee MD Work Phone: Rheumatology Comment on above: Symptoms Start: 04-11-2022 End: 04-11-2022 Patient encounter procedure Anabela Palomares TRASH COLLECTOR.LINOTYPE MACHINIST APPRENTICE Work Phone: Gastroenterolgy Comment on above: Screen for colon can cer (Primary Dx); History of esophageal stricture; Gastroesophageal reflux disease without esophagitis; Belching; Iron deficiency anemia, unspecified iron deficiency anemia type Start: 03-28-2022 Refill Mino Ignacio Work Phone: Rheumatology Comment on above: Refill Request Start: 03-27-2022 Refill Mino Ignacio Work Phone: Rheumatology Comment on above: Refill Request Start: 03-21-2022 End: 03-21-2022 ambulatory Raquel Thomas MD Work Phone: [facility] Comment on above: Rheumatoid arthritis involving both knees with positive rheumatoid factor (HCC) (Primary Dx); Other fatigue; NIKO (obstructive sleep apnea) Start: 03-21-2022 End: 03-21-2022 Telemedicine consultation with patient Raquel Thomas MD Work Phone: [facility] Start: 03-08-2022 End: 03-08-2022 ambulatory Kaylyn Alcazar [facility] Rheumatology Comment on above: Rheumatoid arthritis involving multiple sites with positive rheumatoid factor (HCC) (Primary Dx); Injection education, encounter for Start: 03-08-2022 End: 03-08-2022 Telemedicine consultation with patient Kaylyn Alcazar RPh [facility] Start: 03-07-2022 Refill Mino Ignacio Work Phone: Rheumatology Comment on above: Refill Request Start: 03-05-2022 Refill Kaylyn Alcazar RPh Rheum atology Comment on above: Refill Request Start: 03-04-2022 Telephone encounter Néstor Sánchez MD Work Phone: Neurology Comment on above: [employer] Start: 03-04-2022 End: 03-04-2022 Patient encounter procedure Néstor Sánchez MD Work Phone: Neurology Comment on above: NIKO on CPAP (Primary Dx); Frequent nocturnal awakening Start: 02-25-2022 Orders Only Mino Ignacio Work Phone: [facility] Comment on above: History of esophagea l stricture (Primary Dx); Gastroesophageal reflux disease without esophagitis; Elevated LFTs Start: 02-19-2022 End: 02-19-2022 Patient encounter procedure Mino Harris MD Work Phone: [facility] Comment on above: Rheumatoid arthritis involving multiple sites with positive rheumatoid factor (HCC) (Primary Dx); High risk medication use; Diffuse pain; 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; Morning stiffness of joints Start: 02-06-2022 Refill Timbo schofield MD Work Phone: Internal Medicine [place] Comment on above: Prescription Refills Start: 02-04-2022 Refill Mino Ignacio Work Phone: Rheumatology Comment on above: Refill Request Start: 01-23-2022 Telephone encounter Mino lee MD Work Phone: Rheumatology Comment on above: Patient Question Start: 07-27-2021 End: 07-27-2021 Subsequent hospital visit by physician [facility] Work Phone: Radiology Comment on above: Primary osteoarthrit is of right knee [M17.11] Start: 07-20-2021 Telephone encounter Mino lee MD Work Phone: Rheumatology Comment on above: Medication Question Procedures Date Procedure Procedure Detail Performing Clinician Start: 12-15-2024 Joint survey single view 2 or more joints Mino Harris MD Work Phone: Start: 05-28-2024 Adult depression screening assessment Mino Harris MD Work Phone: Start: 08-29-2023 Level iv surg pathology gross&microscopic exam Buck Shepherd MD Work Phone: Start: 08-29-2023 Esophagogastroduodenoscopy transoral diagnostic Jesusita Kohler PA-C Work Phone: Start: 04-16-2023 Radiologic examination knee 3 views Alhaji D Decapua PA-C Work Phone: Start: 03-18-2023 Level iv surg pathology gross&microscopic exam Tee Batres MD Work Phone: Start: 03-18-2023 Colonoscopy flx dx w/collj spec when pfrmd Jesusita Kohler PA-C Work Phone: Start: 03-18-2023 Colonoscopy Timbo Bright MD Work Phone: Start: 12-12-2022 Radiologic examination knee 3 views Alhaji D Decapua PA-C Work Phone: Start: 11-18-2022 Antibody screen ANIVAL AMBRIZ Comment on above: Order Comment: Specimen Type: BLOOD SPEC IMEN Ordering Facility: [facility] Address: [address] [place] [id number] Performed By: #### T SCR #### [facility] CLIA [id number] [address] ATTN [place], [place] [id number] [place] [address] OF [facility] Start: 11-01-2022 Antibody screen [facility] 1 Work Phone: Start: 10-01-2022 Radex hip unilateral with pelvis 2-3 views Alhaji D Decapua PA-C Work Phone: Start: 09-10-2022 CT angiography of chest with contrast Dr. Fran Peguero Work Phone: Start: 09-10-2022 Plain chest X-ray Dr. Fran Peguero Work Phone: Start: 09-06-2022 Plain chest X-ray Dr. Fran Peguero Work Phone: Start: 08-28-2022 Lipid 1996 panel - Serum or Plasma Aminata h Brezovec PA-C Work Phone: Start: 05-31-2022 Ecg routine ecg w/least 12 lds w/i&r [facility] Provider Start: 05-06-2022 Radiologic exam knee complete 4/more views Alhaji D Decapua PA-C Work Phone: Start: 03-04-2022 Adult depression screening assessment Néstor Sánchez Jr., MD Work Phone: Start: 02-16-2022 Adult depression screening assessment Mino Harris MD Work Phone: Start: 09-06-2021 Adult depression screening assessment Mino Harris MD Work Phone: Start: 07-27-2021 Radiologic examination knee 3 views Alhaji D Decapua PA-C Work Phone: Start: 07-02-2021 H/O: artificial joint Status post knee replacement Sunday Barrera DO Work Phone: Start: 07-02-2021 History of operative procedure on knee Status post knee replacement Mino Harris MD Work Phone: Start: 11-19-2016 Mammography Mino Harris MD Work Phone: H/O: artificial joint Status pos t knee replacement, unspecified laterality Alhaji D Decapua PA-C Work Phone: H/O: artificial joint Status pos t knee replacement, unspecified laterality Alhaji D Decapua PA-C Work Phone: Ligation of fallopian tube T DELTA HOOVER MD SARS-CoV-2 & FLU Antigen (Rapid) Dr. Fran Peguero Work Phone: Plan of Treatment Date Care Activity Detail Author Start: 03-18-2028 Colonoscopy Colonoscopy [facility] Start: 03-18-2028 Colorectal Cancer Screening Colorectal Cancer Screening [facility] Start: 03-18-2028 Screening for malignant neoplasm of colon [facility] Start: 10-23-2027 Diabetes Screening Diabetes Screening [facility] Start: 08-28-2027 Lipid 1996 panel - Serum or Plasma Lipid Screening [facility] Start: 08-28-2027 Lipid panel Lipid Screening [facility] Start: 08-28-2027 LIPID SCREEN LIPID SCREEN [facility] Start: 05-01-2027 Diabetes Screening Diabetes Screening [facility] Start: 03-13-2027 Diabetes Screening Diabetes Screening [facility] Start: 03-15-2026 DIABETES SCREEN DIABETES SCREEN [facility] Start: 03-15-2026 Diabetes Screening Diabetes Screening [facility] Start: 11-19-2025 DIABETES SCREEN DIABETES SCREEN [facility] Start: 11-01-2025 DIABETES SCREEN DIABETES SCREEN [facility] Start: 10-21-2025 LIPID SCREEN LIPID SCREEN [facility] Start: 08-28-2025 DIABETES SCREEN DIABETES SCREEN [facility] Start: 06-29-2025 End: 06-29-2025 Patient encounter procedure 06/29/2025 4:00 PM EDT Office Visit [facility] [address] [place], [place] [id number] Mino Harris MD [address] [place] [address] 6-7 month follow up [facility] Comment on above: 6-7 month follow up Start: 06-19-2025 DIABETES SCREEN DIABETES SCREEN [facility] Start: 06-03-2025 End: 06-03-2025 Patient encounter procedure 06/03/2025 4:20 PM EDT Office Visit [facility] [address] [place] [address] Timbo Bright MD [address] [place] [address] Annual exam [facility] Comment on above: Annual exam Start: 05-31-2025 DIABETES SCREEN DIABETES SCREEN [facility] Start: 05-28-2025 Annual PCP Team Chronic Disease Visit Annual PCP Team Chronic Disease Visit [facility] Start: 05-28-2025 Anxiety Screening Anxiety Screening [facility] Start: 05-28-2025 Depression Screening Depression Screening [facility] Start: 05-23-2025 Influenza vaccination Influenza Vaccine (Season Ended) [facility] Start: 03-30-2025 End: 03-30-2025 Patient encounter procedure 03/30/2025 11:00 AM EDT Office Visit Orthopaedics [address] [place] [address] Alhaji Francois PA-C [address] [place] [address] LT KNEE REPLACEMENT Orthopaedics Comment on above: LT KNEE REPLACEMENT Start: 03-19-2025 DIABETES SCREEN DIABETES SCREEN [facility] Start: 03-18-2025 End: 03-18-2025 Patient encounter procedure Rheumatology Comment on above: follow up Dr. Harris Start: 02-19-2025 DIABETES SCREEN DIABETES SCREEN [facility] Start: 12-15-2024 End: 12-15-2024 Patient encounter procedure 12/15/2024 2:00 PM EDT Office Visit [facility] [address] [address] Mino Harris MD [address] [place] [address] RA 6 Month Follow Up [facility] Comment on above: RA 6 Month Follow Up Start: 10-22-2024 End: 01-21-2025 CBC W Auto Differential panel - Blood COMPLETE BLOOD COUNT AND DIFFERENTIAL Lab Routine Encounter for long-term current use of medication Other fatigue Expected: 10/22/2024 (Approximate), Expires: 01/21/2025 [facility] Comment on above: Expected: 10/22/2024 (Approximate), Expi res: 01/21/2025 Start: 10-22-2024 End: 01-21-2025 Comprehensive metabolic 2000 panel - Serum or Plasma COMPREHENSIVE METABOLIC PANEL Lab Routine Encounter for long-term current use of medication Other fatigue Expected: 10/22/2024 (Approximate), Expires: 01/21/2025 [facility] Comment on above: Expected: 10/22/2024 (Approximate), Expi res: 01/21/2025 Start: 10-22-2024 End: 01-21-2025 Ferritin [Mass/volume] in Serum or Plasma FERRITIN Lab Routine Encounter for long-term current use of medication Other fatigue Expected: 10/22/2024 (Approximate), Expires: 01/21/2025 [facility] Comment on above: Expected: 10/22/2024 (Approximate), Expi res: 01/21/2025 Start: 10-22-2024 End: 01-21-2025 Folate [Mass/volume] in Serum or Plasma FOLATE, SERUM Lab Routine Encounter for long-term current use of medication Other fatigue Expected: 10/22/2024 (Approximate), Expires: 01/21/2025 [facility] Work Phone: Comment on above: Expected: 10/22/2024 (Approximate), Expi res: 01/21/2025 Start: 10-22-2024 End: 01-21-2025 Iron and Iron binding capacity panel - Serum or Plasma IRON AND TIBC Lab Routine Encounter for long-term current use of medication Other fatigue Expected: 10/22/2024 (Approximate), Expires: 01/21/2025 [facility] Comment on above: Expected: 10/22/2024 (Approximate), Expi res: 01/21/2025 Start: 09-22-2024 Covid-19 Vaccine (#1) Covid-19 Vaccine (#1) [facility] Comment on above: Postponed from 02/08/1970 (Declined at t his time) Start: 09-22-2024 Influenza vaccination Influenza Vaccine (#1) [facility] Comment on above: Postponed from 05/23/2024 (Declined at t his time) Start: 09-22-2024 Pneumococcal vaccination Pneumococcal Vaccine (1 of 2 - PCV) [facility] Comment on above: Postponed from 1969 (Declined at t his time) Start: 09-22-2024 RSV Vaccine (1 - 1-dose 60+ series) RSV Vaccine (1 - 1-dose 60+ series) [facility] Comment on above: Postponed from 2023 (Declined at t his time) Start: 09-22-2024 RSV Vaccine (1 - Risk 60-74 years 1-dose series) RSV Vaccine (1 - Risk 60-74 years 1-dose series) [facility] Comment on above: Postponed from 2023 (Declined at t his time) Start: 09-22-2024 Shingrix Vaccine (1 of 2) Shingrix Vaccine (1 of 2) [facility] Comment on above: Postponed from 1982 (Declined at t his time) Start: 09-22-2024 Urine microalbumin profile DTaP,Tdap,Td Vaccine (2 - Tdap) [facility] Comment on above: Postponed from 04/22/2014 (Declined at t his time) Start: 07-03-2024 DIABETES SCREEN DIABETES SCREEN [facility] Start: 06-10-2024 End: 06-10-2024 Patient encounter procedure 06/10/2024 10:00 AM EDT Office Visit Rheumatology [address] [address] Mino Harris MD [address] [place] [address] ra f/u Rheumatology Comment on above: ra f/u Start: 05-23-2024 Influenza vaccination [facility] Start: 05-07-2024 End: 05-07-2024 Patient encounter procedure 05/07/2024 2:20 PM EDT Office Visit [facility] [place] [address] [place] [address] Ev Berger APRN.DIE CUTTING MACHINE OPERATOR [address] [place], [place] [id number] yearly [facility] [place] Comment on above: yearly Start: 04-29-2024 End: 07-29-2024 CBC W Auto Differential panel - Blood COMPLETE BLOOD COUNT AND DIFFERENTIAL Lab Routine Routine medical exam Acquired hypothyroidism Expected: 04/29/2024, Expires: 07/29/2024 [facility] Work Phone: Comment on above: Expected: 04/29/2024, Expires: Start: 04-29-2024 End: 07-29-2024 Comprehensive metabolic 2000 panel - Serum or Plasma COMPREHENSIVE METABOLIC PANEL Lab Routine Routine medical exam Acquired hypothyroidism Expected: 04/29/2024, Expires: 07/29/2024 [facility] Comment on above: Expected: 04/29/2024, Expires: Start: 04-29-2024 End: 07-29-2024 Ferritin [Mass/volume] in Serum or Plasma FERRITIN Lab Routine Anemia, unspecified type Expected: 04/29/2024, Expires: 07/29/2024 [facility] Comment on above: Expected: 04/29/2024, Expires: Start: 04-29-2024 End: 07-29-2024 Folate [Mass/volume] in Serum or Plasma FOLATE, SERUM Lab Routine Anemia, unspecified type Expected: 04/29/2024, Expires: 07/29/2024 [facility] Comment on above: Expected: 04/29/2024, Expires: Start: 04-29-2024 End: 07-29-2024 Iron and Iron binding capacity panel - Serum or Plasma IRON AND TIBC Lab Routine Anemia, unspecified type Expected: 04/29/2024, Expires: 07/29/2024 [facility] Comment on above: Expected: 04/29/2024, Expires: Start: 04-29-2024 End: 07-29-2024 Magnesium [Mass/volume] in Serum or Plasma MAGNESIUM Lab Routine Gastroesophageal reflux disease without esophagitis Expected: 04/29/2024, Expires: 07/29/2024 [facility] Comment on above: Expected: 04/29/2024, Expires: Start: 04-29-2024 End: 07-29-2024 Thyrotropin [Units/volume] in Serum or Plasma THYROID STIMULATING HORMONE Lab Routine Acquired hypothyroidism Expected: 04/29/2024, Expires: 07/29/2024 [facility] Comment on above: Expected: 04/29/2024, Expires: Start: 04-29-2024 End: 07-29-2024 Triiodothyronine (T3) Free [Mass/volume] in Serum or Plasma T3, FREE Lab Routine Acquired hypothyroidism Expected: 04/29/2024, Expires: 07/29/2024 [facility] Comment on above: Expected: 04/29/2024, Expires: Start: 03-18-2024 Colonoscopy COLONOSCOPY [facility] Start: 03-18-2024 COLORECTAL CANCER SCREENING COLORECTAL CANCER SCREENING [facility] Start: 03-01-2024 End: 03-01-2025 C reactive protein [Mass/volume] in Serum or Plasma C-REACTIVE PROTEIN Lab Routine Rheumatoid arthritis involving multiple sites with positive rheumatoid factor (HCC) Long-term use of immunosuppressant medication Expected: 03/01/2024, Expires: 03/01/2025 [facility] Comment on above: Expected: 03/01/2024, Expires: Start: 03-01-2024 End: 03-01-2025 CBC panel - Blood by Automated count COMPLETE BLOOD COUNT Lab Routine Rheumatoid arthritis involving multiple sites with positive rheumatoid factor (HCC) Long-term use of immunosuppressant medication Expected: 03/01/2024, Expires: 03/01/2025 [facility] Work Phone: Comment on above: Expected: 03/01/2024, Expires: Start: 03-01-2024 End: 03-01-2025 Comprehensive metabolic 2000 panel - Serum or Plasma COMPREHENSIVE METABOLIC PANEL Lab Routine Rheumatoid arthritis involving multiple sites with positive rheumatoid factor (HCC) Long-term use of immunosuppressant medication Expected: 03/01/2024, Expires: 03/01/2025 [facility] Comment on above: Expected: 03/01/2024, Expires: Start: 03-01-2024 End: 03-01-2025 Erythrocyte sedimentation rate SEDIMENTATION RATE, WESTERGREN Lab Routine Rheumatoid arthritis involving multiple sites with positive rheumatoid factor (HCC) Long-term use of immunosuppressant medication Expected: 03/01/2024, Expires: 03/01/2025 [facility] Comment on above: Expected: 03/01/2024, Expires: Start: 02-27-2024 ANNUAL PCP TEAM CHRONIC DISEASE VISIT ANNUAL PCP TEAM CHRONIC DISEASE VISIT [facility] Start: 02-27-2024 COVID-19 VACCINE (#1) COVID-19 VACCINE (#1) [facility] Comment on above: Postponed from 1963 (Declined at t his time) Postponed from 02/07 (Declined at this time) Start: 02-27-2024 PNEUMOCOCCAL (1 - PCV) PNEUMOCOCCAL (1 - PCV) [facility] Comment on above: Postponed from 1969 (Declined at t his time) Start: 02-27-2024 Pneumococcal vaccination [facility] Comment on above: Postponed from 1969 (Declined at t his time) Start: 01-01-2024 End: 04-01-2024 C reactive protein [Mass/volume] in Serum or Plasma C-REACTIVE PROTEIN Lab Routine Rheumatoid arthritis involving multiple sites with positive rheumatoid factor (HCC) High risk medication use Expected: 01/01/2024 (Approximate), Expires: 04/01/2024 [facility] Work Phone: Comment on above: Expected: 01/01/2024 (Approximate), Expi res: 04/01/2024 Start: 01-01-2024 End: 04-01-2024 CBC W Auto Differential panel - Blood COMPLETE BLOOD COUNT AND DIFFERENTIAL Lab Routine Rheumatoid arthritis involving multiple sites with positive rheumatoid factor (HCC) High risk medication use Expected: 01/01/2024 (Approximate), Expires: 04/01/2024 [facility] Work Phone: Comment on above: Expected: 01/01/2024 (Approximate), Expi res: 04/01/2024 Start: 01-01-2024 End: 04-01-2024 Comprehensive metabolic 2000 panel - Serum or Plasma COMPREHENSIVE METABOLIC PANEL Lab Routine Rheumatoid arthritis involving multiple sites with positive rheumatoid factor (HCC) High risk medication use Expected: 01/01/2024 (Approximate), Expires: 04/01/2024 [facility] Work Phone: Comment on above: Expected: 01/01/2024 (Approximate), Expi res: 04/01/2024 Start: 01-01-2024 End: 04-01-2024 Erythrocyte sedimentation rate SEDIMENTATION RATE, WESTERGREN Lab Routine Rheumatoid arthritis involving multiple sites with positive rheumatoid factor (HCC) High risk medication use Expected: 01/01/2024 (Approximate), Expires: 04/01/2024 [facility] Work Phone: Comment on above: Expected: 01/01/2024 (Approximate), Expi res: 04/01/2024 Start: 12-25-2023 ANNUAL PCP TEAM CHRONIC DISEASE VISIT ANNUAL PCP TEAM CHRONIC DISEASE VISIT [facility] Start: 09-22-2023 Behavioral Health Screening Behavioral Health Screening [facility] Start: 09-22-2023 Depression Assessment Depression Assessment [facility] Start: 09-06-2023 ANNUAL PCP TEAM CHRONIC DISEASE VISIT ANNUAL PCP TEAM CHRONIC DISEASE VISIT [facility] Start: 05-23-2023 Influenza vaccination [facility] Start: 04-19-2023 COLORECTAL CANCER SCREENING COLORECTAL CANCER SCREENING [facility] Comment on above: Postponed from 02/08/2008 (Declined at t his time) Start: 04-19-2023 HPV TESTING HPV TESTING [facility] Comment on above: Postponed from 05/23/2016 (Declined at t his time) Start: 04-19-2023 Mammography MAMMOGRAM [facility] Comment on above: Postponed from 11/19/2017 (Declined at t his time) Start: 04-19-2023 PAP TESTING PAP TESTING [facility] Comment on above: Postponed from 05/23/2016 (Declined at t his time) Start: 04-19-2023 SHINGRIX VACCINE (1 of 2) SHINGRIX VACCINE (1 of 2) [facility] Comment on above: Postponed from 1982 (Declined at t his time) Postponed from 02/07 (Declined at this time) Start: 04-19-2023 Urine microalbumin profile DTAP,TDAP,TD (2 - Tdap) [facility] Comment on above: Postponed from 04/22/2014 (Declined at t his time) Start: 03-04-2023 Adult depression screening assessment DEPRESSION SCREENING [facility] Start: 02-16-2023 Adult depression screening assessment DEPRESSION SCREENING [facility] Start: 2023 RSV Vaccine (1 - 1-dose 60+ series) RSV Vaccine (1 - 1-dose 60+ series) [facility] Start: 2023 RSV Vaccine (1 - Risk 60-74 years 1-dose series) RSV Vaccine (1 - Risk 60-74 years 1-dose series) [facility] Start: 11-21-2022 Screening for malignant neoplasm of breast Mammogram Screening [facility] Start: 11-06-2022 End: 01-06-2023 HFE gene targeted mutation analysis in Blood or Tissue by Molecular genetics method HFE (HEMOCHROMATOSIS) Lab Routine Elevated ferritin Expected: 11/06/2022, Expires: 01/06/2023 [facility] Work Phone: Comment on above: Expected: 11/06/2022, Expires: Start: 09-22-2022 DEPRESSION ASSESSMENT DEPRESSION ASSESSMENT [facility] Start: 09-10-2022 [facility] Work Phone: Start: 09-06-2022 Adult depression screening assessment DEPRESSION SCREENING [facility] Start: 09-06-2022 ADULT PREVNAR ADULT PREVNAR [facility] Comment on above: Postponed from 1982 (Declined at t his time) Start: 09-06-2022 COVID-19 VACCINE (#1) COVID-19 VACCINE (#1) [facility] Comment on above: Postponed from 02/08/1968 (Declined at t his time) Postponed from 08/10 (Declined at this time) Start: 09-06-2022 PNEUMOCOCCAL (1 - PCV) PNEUMOCOCCAL (1 - PCV) [facility] Comment on above: Postponed from 1969 (Declined at t his time) Start: 09-06-2022 TWO PNEUMOVAX 5 YEARS APART PRIOR TO AGE 65 (#1) TWO PNEUMOVAX 5 YEARS APART PRIOR TO AGE 65 (#1) [facility] Comment on above: Postponed from 1982 (Declined at t his time) Start: 09-06-2022 [facility] Work Phone: Start: 08-06-2022 End: 10-06-2022 BLOOD TB SCREEN BLOOD TB SCREEN Lab Routine Rheumatoid arthritis involving multiple sites with positive rheumatoid factor (HCC) Expected: 08/06/2022, Expires: 10/06/2022 [facility] Work Phone: Comment on above: Expected: 08/06/2022, Expires: 3 Start: 06-14-2022 End: 06-07-2023 SARS-CoV-2 (COVID-19) RNA [Presence] in Respiratory specimen by LEE ANN with probe detection PRE-PROCEDURE & PRE-OPERATIVE COVID Microbiology Routine Primary osteoarthritis of right hip Expected: 06/14/2022, Expires: 06/07/2023 [facility] Work Phone: Comment on above: Expected: 06/14/2022, Expires: 3 Start: 06-13-2022 ANNUAL PCP TEAM CHRONIC DISEASE VISIT ANNUAL PCP TEAM CHRONIC DISEASE VISIT [facility] Comment on above: Postponed from 01/31/2022 (Currently [facility]) Start: 05-31-2022 End: 07-31-2022 TYPE AND SCREEN,30 DAY [facility] Work Phone: Comment on above: Expected: 05/31/2022, Expires: 2 Start: 05-23-2022 Influenza vaccination [facility] Start: 03-21-2022 End: 05-21-2022 25-hydroxyvitamin D3 [Mass/volume] in Serum or Plasma VITAMIN D 25 HYDROXY Lab Routine Expected: 03/21/2022, Expires: 05/21/2022 [facility] Work Phone: Comment on above: Expected: 03/21/2022, Expires: 2 Start: 03-21-2022 End: 05-21-2022 Cobalamin (Vitamin B12) [Mass/volume] in Serum or Plasma VITAMIN B12 BLOOD Lab Routine Rheumatoid arthritis involving both knees with positive rheumatoid factor (HCC) Other fatigue Expected: 03/21/2022, Expires: 05/21/2022 [facility] Work Phone: Comment on above: Expected: 03/21/2022, Expires: 2 Start: 03-21-2022 End: 05-21-2022 OMEGACHECK OMEGACHECK Lab Routine Rheumatoid arthritis involving both knees with positive rheumatoid factor (HCC) Other fatigue Expected: 03/21/2022, Expires: 05/21/2022 [facility] Work Phone: Comment on above: Expected: 03/21/2022, Expires: Start: 03-18-2022 End: 04-21-2022 Comprehensive metabolic 2000 panel - Serum or Plasma COMP METABOLIC PANEL Lab Routine Elevated LFTs Expected: 03/18/2022 (Approximate), Expires: 04/21/2022 [facility] Work Phone: Comment on above: Expected: 03/18/2022 (Approximate), Expi res: 04/21/2022 Start: 01-31-2022 ANNUAL PCP TEAM CHRONIC DISEASE VISIT ANNUAL PCP TEAM CHRONIC DISEASE VISIT [facility] Start: 09-22-2021 DEPRESSION ASSESSMENT DEPRESSION ASSESSMENT [facility] Start: 11-19-2017 Mammography [facility] Start: 11-19-2017 Screening for malignant neoplasm of breast Mammogram Screening [facility] Start: 05-23-2016 HPV TESTING HPV TESTING [facility] Start: 05-23-2016 PAP TESTING PAP TESTING [facility] Start: 05-23-2016 Screening for malignant neoplasm of cervix [facility] Start: 04-22-2014 Urine microalbumin profile [facility] Start: 2013 SHINGRIX VACCINE (1 of 2) SHINGRIX VACCINE (1 of 2) [facility] Start: 05-23-2012 Screening for malignant neoplasm of cervix Cervical Cancer Screening [facility] Start: 02-08-2008 COLOGUARD (FIT-DNA) COLOGUARD (FIT-DNA) [facility] Start: 02-08-2008 Colonoscopy COLONOSCOPY [facility] Start: 02-08-2008 COLORECTAL CANCER SCREENING COLORECTAL CANCER SCREENING [facility] Start: 02-08-[address] COLONOGRAPHY [facility] Start: 02-08-2008 FECAL OCCULT BLOOD FECAL OCCULT BLOOD [facility] Start: 02-08-2008 Screening for malignant neoplasm of colon [facility] Start: 02-08-2008 SIGMOIDOSCOPY SIGMOIDOSCOPY [facility] Start: 1982 Pneumococcal Vaccine: 50+ (1 of 2 - PCV) Pneumococcal Vaccine: 50+ (1 of 2 - PCV) [facility] Start: 1982 SHINGRIX VACCINE (1 of 2) SHINGRIX VACCINE (1 of 2) [facility] Start: 1981 Anxiety Screening Anxiety Screening [facility] Start: 1981 Depression Screening Depression Screening [facility] Start: 1969 PNEUMOCOCCAL (1 - PCV) PNEUMOCOCCAL (1 - PCV) [facility] Start: 1969 Pneumococcal vaccination Pneumococcal Vaccine (1 of 2 - PCV) [facility] Start: 02-08-1968 Covid-19 Vaccine (#1) Covid-19 Vaccine (#1) [facility] Start: 1963 COVID-19 VACCINE (#1) COVID-19 VACCINE (#1) [facility] End: 11-06-2023 COLONOSCOPY DIAGNOSTIC COLONOSCOPY DIAGNOSTIC Endoscopy Routine Blood in stool Lower abdominal pain 1 Occurrences starting 11/06/2022 until 11/06/2023 [facility] Work Phone: Comment on above: 1 Occurrences starting 11/06/2022 until 11/06/2023 End: 02-03-2026 DBT Breast - bilateral screening SERGO SCREENING [facility] Radiology Routine Encounter for screening mammogram for breast cancer 1 Occurrences starting 01/04/2025 until 02/03/2026 [facility] Work Phone: Comment on above: 1 Occurrences starting 01/04/2025 until 02/03/2026 End: 09-27-2023 DXA-AXIAL SKELETON DXA-AXIAL SKELETON Radiology Routine Rheumatoid arthritis involving multiple sites with positive rheumatoid factor (HCC) High risk medication use Asymptomatic postmenopausal status 1 Occurrences starting 08/28/2022 until 09/27/2023 [facility] Work Phone: Comment on above: 1 Occurrences starting 08/28/2022 until 09/27/2023 End: 05-31-2023 ECG COMPLETE ECG COMPLETE ECG Routine Pre-operative examination 1 Occurrences starting 05/31/2022 until 05/31/2023 [facility] Work Phone: Comment on above: 1 Occurrences starting 05/31/2022 until 05/31/2023 ECG COMPLETE ECG COMPLETE ECG 05/31/2022 11:24 AM EDT [facility] End: 04-11-2023 EGD DIAGNOSTIC EGD DIAGNOSTIC Endoscopy Routine History of esophageal stricture Gastroesophageal reflux disease without esophagitis Belching Iron deficiency anemia, unspecified iron deficiency anemia type 1 Occurrences starting 04/11/2022 until 04/11/2023 [facility] Work Phone: Comment on above: 1 Occurrences starting 04/11/2022 until 04/11/2023 End: 11-06-2023 EGD DIAGNOSTIC EGD DIAGNOSTIC Endoscopy Routine Gastroesophageal reflux disease, unspecified whether esophagitis present 1 Occurrences starting 11/06/2022 until 11/06/2023 [facility] Work Phone: Comment on above: 1 Occurrences starting 11/06/2022 until 11/06/2023 Exc b9 lesion mrgn x cp sk tg t/a/l 0.5 cm/< REM LESION TRUNK,ARM, LEG <0.5 CM Procedures Routine 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 Skin lesion Abnormal skin growth Painful skin lesion Ordered: 12/24/2022 [facility] Work Phone: Comment on above: Ordered: 12/24/2022 Helicobacter pylori Ag [Presence] in Stool by Immunoassay H PYLORI AG BY EIA,STOOL Microbiology Routine Helicobacter pylori infection Ordered: 09/03/2023 [facility] Work Phone: Comment on above: Ordered: 09/03/2023 End: 03-27-2024 SERGO SCREENING SERGO SCREENING Radiology Routine Breast cancer screening by mammogram 1 Occurrences starting 02/26/2023 until 03/27/2024 [facility] Work Phone: Comment on above: 1 Occurrences starting 02/26/2023 until 03/27/2024 End: 03-05-2025 MG Breast Screening SERGO SCREENING Radiology Routine Encounter for screening mammogram for breast cancer 1 Occurrences starting 02/04/2024 until 03/05/2025 [facility] Work Phone: Comment on above: 1 Occurrences starting 02/04/2024 until 03/05/2025 Patient Education [facility] Work Phone: Patient referral [facility] Work Phone: SARS-CoV-2 (COVID-19 ) RNA [Presence] in Respiratory specimen by LEE ANN with probe detection SELF CHECK COVID Microbiology Routine Primary osteoarthritis of right hip Ordered: 06/11/2022 [facility] Work Phone: Comment on above: Ordered: 06/11/2022 End: 04-11-2023 Screening colonoscopy COLONOSCOPY SCREENING Endoscopy Routine Screen for colon cancer 1 Occurrences starting 04/11/2022 until 04/11/2023 [facility] Work Phone: Comment on above: 1 Occurrences starting 04/11/2022 until 04/11/2023 SURGICAL PATHOLOGY SURGICAL PATH OLOGY Lab Routine 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 Skin lesion Abnormal skin growth Painful skin lesion 12/24/2022 11:19 AM EDT [facility] Work Phone: End: 12-06-2023 Us abdominal real time w/image limited US ABD RT UPPER QUADRANT Radiology Routine Elevated ferritin 1 Occurrences starting 11/06/2022 until 12/06/2023 [facility] Work Phone: Comment on above: 1 Occurrences starting 11/06/2022 until 12/06/2023 End: 07-13-2023 US HAND/WRIST SYNOVIAL SCREEN RT [facility] Work Phone: Comment on above: 1 Occurrences starting 06/13/2022 until 07/13/2023 End: 06-12-2023 XR HIP GENERAL 3V PELV/AP/LAT RIGHT XR HIP GENERAL 3V PELV/AP/LAT RIGHT Radiology Routine Primary osteoarthritis of right hip 1 Occurrences starting 05/14/2022 until 06/12/2023 [facility] Work Phone: Comment on above: 1 Occurrences starting 05/14/2022 until 06/12/2023 End: 11-21-2025 XR Knee - left AP and Lateral XR KNEE LIMITED 2V AP/LAT LEFT Radiology Routine Acute pain of left knee 1 Occurrences starting 10/22/2024 until 11/21/2025 [facility] Work Phone: Comment on above: 1 Occurrences starting 10/22/2024 until 11/21/2025 XR Knee - left AP an d Lateral XR KNEE LIMITED 2V AP/LAT LEFT Radiology Routine Acute pain of left knee 10/23/2024 8:52 AM EST [facility] Work Phone: End: 11-21-2025 XR Knee - right AP and Lateral XR KNEE LIMITED 2V AP/LAT RIGHT Radiology Routine Acute pain 1 Occurrences starting 10/22/2024 until 11/21/2025 [facility] Comment on above: 1 Occurrences starting 10/22/2024 until 11/21/2025 XR Knee - right AP a nd Lateral XR KNEE LIMITED 2V AP/LAT RIGHT Radiology Routine Acute pain 10/23/2024 8:52 AM EST [facility] Immunizations Immunization Date Immunization Notes Care Provider Fa cili 02-12-2019 influenza virus vaccine, unspecified formulation Carmen Agudelo PA-C Work Phone: [facility] 04-22-2004 diphtheria and tetan us toxoids, adsorbed for pediatric use Mino Harris MD Work Phone: [facility] Work Phone: Payers Date Payer Category Payer Private Health Insurance [id number] 2024 Unknown [id number] 2024 Self-pay [id number] 2008 Private Health Insurance [facility] CHO[facility] PLUS [id number] 2008-Present [phone] [address] [place] [address] [facility] [id number] 2008 Private Health Insurance [id number] 2008 Private Health Insurance [id number] 1965 Unknown [id number] Unknown [id number] Social History Date Type Detail Facility Start: 03-29-2011 End: 05-06-2022 Tobacco smoking status NHIS Never smoked tobacco [facility] Start: 09-06-2021 End: 12-15-2024 Alcohol intake Current non-drinker of alcohol (finding) [facility] Start: 04-18-2020 End: 09-06-2022 History SDOH Alcohol Frequency 1 [facility] Start: 04-18-2020 End: 09-06-2022 History SDOH Alcohol Std Drinks 98 [facility] Start: 04-18-2020 History SDOH Social Connections Phone 5 [facility] Start: 04-18-2020 End: 09-06-2022 History SDOH Social Connections Get Together 2 [facility] Start: 04-18-2020 End: 09-06-2022 History SDOH Social Connections [employer] 3 [facility] Start: 04-18-2020 Education 15 [facility] Start: 1965 Sex Assigned At Female [facility] Start: 06-27-2021 End: 08-13-2022 Exposure to SARS-CoV-2 (event) Not sure [facility] Start: 03-29-2011 End: 05-06-2022 Tobacco use and exposure Smokeless tobacco non-user [facility] Start: 05-26-2022 End: 06-05-2022 Exposure to SARS-CoV-2 (event) Unable to assess [facility] Start: 09-06-2022 History SDOH Physical Activity DPW 0 [facility] Start: 09-10-2022 Tobacco smoking status NHIS Unknown if ever smoked [facility] Work Phone: Start: 02-02-2021 None [facility] Work Phone: Start: 02-09-2021 Non-smoker [facility] Work Phone: Start: 09-06-2022 End: 01-28-2023 History of Social function [facility] Start: 09-06-2022 End: 01-28-2023 Social connection and isolation panel [facility] In a typical week, h ow many times do you talk on the telephone with family, friends, or neighbors? Patient refused [facility] Do you belong to any clubs or organizations such as scientologist groups, [email or web address], [employer] or athletic groups, or school groups? Yes [facility] Are you now , , , , never or living with a partner? [facility] Do you feel stress - tense, restless, nervous, or anxious, or unable to sleep at night because your mind is troubled all the time - these days [OSQ] Only a little [facility] (I/We) worried wheth er (my/our) food would run out before (I/we) got money to buy more. DK or Refused [facility] In the past 12 month s, was there a time when you were not able to pay the mortgage or rent on time? No [facility] Start: 01-22-2021 Gender identity Identifies as female gender (finding) [facility] Start: 12-26-2020 Sexual orientation Heterosexual (finding) [facility] How often to you hav e a drink containing alcohol? Never [facility] How hard is it for y ou to pay for the very basics like food, housing, medical care, and heating Not very hard [facility] Do you feel stress - tense, restless, nervous, or anxious, or unable to sleep at night because your mind is troubled all the time - these days [OSQ] Not at all [facility] (I/We) worried wheth er (my/our) food would run out before (I/we) got money to buy more. Never true [facility] Sex Assigned At Sex [facility] Medical Equipment Procedure Code Equipment Code Equipment Origin al Text Equipment Identifier Dates Cement Simplex P Bone Radiopaque Full Dose Sterile - [id number] Start: 07-02-2021 Component 29mm A ll Poly Patellar Psn - [id number] Start: 07-02-2021 Component Person a 8 Standard Cocr Femoral Cruciate Retain - [id number] Start: 07-02-2021 Insert Persona 8-11 E-F Vivacit-E 10mm Articular Sterile Knee Right [id number] Start: 07-02-2021 Baseplate Person a 5d E Tivanium Tibial Cemented Stem Knee Right - [id number] Start: 07-02-2021 Extension Person a 14mm Taper 30+ Mm Stem Knee Tibia - [id number] Start: 07-02-2021 [id number], [id number], [id number], [id number] Start: 03-05-2022 End: 07-20-2024 Comment on above: Use as directed to i nject subcutaneous methotrexate once weekly [The details of the medication are not available because there are pending changes by a home health clinician.] 1 Each one time a we ek. To be used for methotrexate injection Use 1 syringe once a week for MTX SC injection Biolox Delta Modular Ceramic Head 36mm Neck Type 1 Taper Std [id number] Start: 06-18-2022 Stem Taperloc 13 3d 12 High Offset Reduce Distal Taper Pps 144mm Femoral - [id number] Start: 06-18-2022 Screw G7 6.5mm Dome 20mm Acetabular Low Profile Hip - [id number] Start: 06-18-2022 Cement Simplex P Bone Radiopaque Full Dose Sterile - [id number] Start: 11-18-2022 Component Person a 7 Standard Cocr Femoral Cruciate Retain - [id number] Start: 11-18-2022 Baseplate Person a 5d E Tivanium Tibial Cemented Stem Knee Left - [id number] Start: 11-18-2022 Liner Acetabular Size D [id number] Hip Longevity Neutral G7 [id number] Start: 06-18-2022 Shell G7 50mm D Offset Hemisphere Osseoti Acetabular 3 Hole Limit Hip - [id number] Start: 06-18-2022 Component 29mm A ll Poly Patellar Psn - [id number] Start: 11-18-2022 Insert Persona 6 -7 E-F Vivacit-E 11mm Articular Sterile Knee Left - [id number] Start: 11-18-2022 Extension Person a 14mm Taper 30+ Mm Stem Knee Tibia - [id number] Start: 11-18-2022 Screw G7 6.5mm Dome 15mm Acetabular Low Profile Hip - [id number] Start: 06-18-2022 Functional Status Date Assessment Result Facility 11-19-2022 Are you deaf, or do you have serious difficulty hearing No 11/19/2022 1:05 PM Janett Valenzuela, GOKUL No [facility] 11-19-2022 Are you blind, or do you have serious difficulty seeing, even when wearing glasses No 11/19/2022 1:05 PM Janett Valenzuela, GOKUL No [facility] 11-19-2022 Do you have serious difficulty walking or climbing stairs No 11/19/2022 1:05 PM Janett Valenzuela, GOKUL No [facility] 11-19-2022 Do you have difficul ty dressing or bathing No 11/19/2022 1:05 PM Janett Valenzuela, RN No [facility] 11-19-2022 Because of a physica l, mental, or emotional condition, do you have difficulty doing errands alone such as visiting a physician's office or shopping No 11/19/2022 1:05 PM Janett Valenzuela RN No [facility] Mental Status Date Assessment Result Facility 11-19-2022 Because of a physica l, mental, or emotional condition, do you have serious difficulty concentrating, remembering, or making decisions No 11/19/2022 1:05 PM Janett Valenzuela RN No [facility] Clinical Notes 05-02-2011 to 01-04-2025 Telephone Encounter - Carmen Owens MA - 12/31/2024 7:58 AM EDTTelephone Encounter - Carmen Owens MA - 12/31/2024 7:58 AM Mino James MD - 12/15/2024 11:04 PM EDTPatient Instructions Note Date & Type Note Facility 01-04-2025 Note Patient Outreach (IN [facility]) AURY METZ ([id number]) 1965 F Date Time Provider Department 01/04/25 [facility] During your visit today, we recorded the following information about you: Allergies As of Date: 01/04/2025 Noted Allergy Reaction CEPHALEXIN 05/29/2005 10 - Anaphylaxis 14 - Other: See Comments Comments: Throat swelling. Has tolerated augmentin 850mg as op after this episode ACIPHEX (RABEPRAZOLE SODIUM) 07/23/2007 14 - Other: See Comments Comments: Chest pain JARRATTWAGANDHA 05/28/2024 7 - Swelling Comments: coffee with keyonnada, interacted with methotrexate, throat tightening BACTRIM (SULFAMETHOXAZOLE-TRIMETH* 005 11 - Vomiting CARAFATE (SUCRALFATE) 11/10/2012 11 - Vomiting DARVOCET-N 100 (PROPOXYPHENE N-AC*05/29/2005 14 - Other: See Comments Comments: dizzy severe pain in head ERYTHROMYCIN 05/29/2005 11 - Vomiting GLUTEN 11/18/2022 5 - Intolerance IODINATED CONTRAST MEDIA 06/25/2018 12 - Shortness of Breath VANCOMYCIN 07/02/2021 9 - Itching Comments: Scalp itchy Date Reviewed: 12/15/2024 Reviewed by: Sonia Alvares OCCA - Fully Assessed Visit Diagnosis:Encounter for screening mammogram for breast cancer [Z12.31] Order(s):SERGO SCREENING W CHERISE [[id number]] Order #: [id number] FUTURE Prescriptions as of 02/04/2025 - albuterol HFA (PROVENTIL HFA, VENTOLIN HFA) 90 mcg/actuation inhaler Inhale 2 Puffs as instructed every 4 hours as needed for wheezing/shortness of breath. - celecoxib (CELEBREX) 100 mg capsule TAKE 1 CAPSULE BY MOUTH EVERY 12 HOURS - Insulin Syringe-Needle U-100 (BD SAFETYGLIDE SYRINGE) 1 mL 27 gauge x 5/8 100 Each one time a week. - methotrexate sodium 25 mg/mL soln Inject 0.8 mL subcutaneously one time a week. - MULTIVITAMIN-FOLIC ACID-BIOTIN ORAL Take by mouth. - thyroid, pork, (ARMOUR THYROID) 60 mg tablet Take 1 tablet by mouth once daily. - Syringe with Needle, Disp, 1 mL 25 gauge x 1 syrg Use 1 syringe once a week for MTX SC injection - folic acid 1 mg tablet take 1 tablet by mouth every day - CPAP Pt with known NIKO confirmed by HSAT. AHI normalized with PAP. Has PAP device (Airsense 10 ([id number])). However, not receiving masks through current DME. Requests change. NIKO sx resolved with PAP. Please fit with Dreamwear under nose FFM (not pillows). Needs supplies. Lifetime supplies. Please provide us download in 4 weeks. - Cetirizine (ZYRTEC) 10 mg cap Take 1 capsule by mouth once daily as needed (allergies). Meds Comments as of 11/20/2022: Stopped all medications except tylenol and armour thyroid and iron infusions due to surgery 06/20/22 - No Severe DDI - pt is not taking methotrexate 11/20/22 - No Severe DDI - pt is not taking methotrexate Problem List As Of Date 01/04/2025 Noted Resolved Awareness of heartbeats [R00.2] 12/20/2020 BRONCHITIS NOS [J40] 10/27/2006 DIZZINESS AND GIDDINESS [R42] 10/27/2006 Gastroesophageal reflux disease [K21.9] 10/27/2006 Anemia [D64.9] 01/04/2010 Rheumatoid arthritis (HCC) [M06.9] 05/02/2011 09/11/2016 Emotional lability [R45.86] 01/01/2013 1.1 Migraine without aura, not intractable [346*02/08/2015 11/01/2022 Intractable migraine with aura without status m*02/08/2015 11/01/2022 1.5.1 Chronic migraine [346.71] [G43.719] 02/08/2015 11/01/2022 Rheumatoid arthritis of multiple sites without *09/11/2016 Drug allergy [Z88.9] 10/25/2016 Allergy to sulfa drugs [Z88.2] 10/25/2016 Rash and nonspecific skin eruption [R21] 10/25/2016 Hypothyroidism [E03.9] 07/15/2017 Moderate obstructive sleep apnea [G47.33] 01/19/2019 Acute pain of both knees [M25.561, M25.562] 04/10/2020 Knee joint stiffness, bilateral [M25.661, M25.6*04/10/2020 Difficulty walking [R26.2] 04/10/2020 Hip stiffness, unspecified laterality [M25.659] 04/10/2020 Right lumbar radiculitis [M54.16] 11/23/2020 Lumbar spondylosis [M47.816] 11/23/2020 Chronic right-sided low back pain with right-si*11/23/2020 Rheumatoid arthritis involving both knees with *11/23/2020 Exercise-induced asthma [J45.990] 06/25/2021 Status post knee replacement [Z96.659] 07/02/2021 Raynaud phenomenon [I73.00] 09/06/2021 Calcific tendinitis of right shoulder [M75.31] 09/06/2021 Cervical radiculopathy [M54.12] 09/06/2021 Disorder of acromioclavicular joint [M19.019] 09/06/2021 Personal history of rheumatoid arthritis [Z87.3*09/06/2021 History of hypothyroidism [Z86.39] 09/06/2021 Fibromyalgia [M79.7] 09/06/2021 Esophageal web [Q39.4] 09/06/2021 Primary osteoarthritis of right hip [M16.11] 05/31/2022 MINDY (iron deficiency anemia) [D50.9] 06/06/2022 Status post total replacement of right hip [Z96*06/18/2022 Reaction to contrast media [T50.8X5A] 08/13/2022 Primary osteoarthritis of left knee [M17.12] 11/18/2022 S/P total knee arthroplasty, left [Z96.652] 11/18/2022 Encounter Status:Closed by [email or web address] (more content not included)... [facility] 12-31-2024 Telephone encounter Note Per [facility] message I use the IC Prednisone 5mg tablets Dr Harris has told me to stay on it for a few weeks until the flar eased up. I thought I had enough but didn't. I only need approximately 1 more week. [facility] 12-31-2024 Miscellaneous Notes Per [employer] message I use the IC Prednisone 5mg tablets Dr Harris has told me to stay on it for a few weeks until the flar eased up. I thought I had enough but didn't. I only need approximately 1 more week. documented in this encounter [facility] 12-15-2024 Note HNO ID: [id number] Author: MINO HARRIS MD Service: ? Author Type: Physician Type: Progress Notes Filed: 12/16/2024 00:07 Note Text: Rheumatology Clinic FOLLOW UP Date of Service: 12/15/2024 Patient: Aury Metz Medical Record: [id number] Primary Care Physician: Timbo Bright MD Last Rheumatology visit: 06/10/2024 (with Mino Harris) History of Present Illness Aury Metz is a 59 year old White female who presents on 12/15/2024 for an in-person visit for evaluation of No chief complaint on file.. She is currently taking celecoxib, methotrexate sodium. RA seropos non erosive RF positive - 48 (01/11/2012) and CCP negative - 20 (05/01/2011). Her most recent KENY was positive (05/05/2013) S/p R TKR 2020 S/p R THR 2021 S/p L TKR 2022 Aury is RF positive - 48 (01/11/2012) and CCP negative - 20 (05/01/2011). Her most recent KENY was positive (05/05/2013). She does not have erosive disease. There are no rheumatoid nodules present. Aury has mild joint swelling. She reports morning stiffness . HISTORY OF PRESENT ILLNESS 59 year old with RF+, CCP negative (intermittent +CCP in the past) Nonerosive MTX 6 tabs weekly celebrex Past treatment: Plaquenil: LE numbness Methotrexate: Became ineffective after 7 years Arava: Rash Humira: SOB Enbrel: ?? Not sure why it was stopped. She thinks she only had one injection. Cymbalta: mind could not shut off. Xeljanz: Insurance would not cover, despite an appeal. Past treatment: Plaquenil: LE numbness Methotrexate: Became ineffective after 7 years Arava: Rash Humira: SOB Enbrel: ?? Not sure why it was stopped. She thinks she only had one injection. Xeljanz: Insurance would not cover, despite an appeal. S/p R TKR 2020 S/p R THR 2021 S/p L TKR 2022 Interval History Aury reports ongoing swelling and discomfort in her left knee, which has persisted since her knee replacement. She notes that the knee never felt right post-surgery and is concerned about the swelling and decreased functionality. She denies any recent trauma or falls affecting the left knee. She mentions a previous fall on the opposite side but does not believe it contributed to her current symptoms. Recent x-rays showed no abnormalities. She is currently taking prednisone, which has provided some relief, and is tapering down to 5 mg with plans to discontinue in 3 days. She has been back on methotrexate 0.8 mg for 2 weeks after a 6-week hiatus due to an infected tooth and subsequent illness, which she suspects was pneumonia and COVID-19. During this period, she was on antibiotics and prednisone. Aury also reports stiffness and pain in her hands, noting the development of Heberden's nodes and swelling. She experiences a sensation of tightness and swelling in her hands and has issues with her ankle. She denies recent x-rays of her hands and feet. She inquires about naltrexone for chronic pain management, mentioning a previous diagnosis of fibromyalgia but expressing doubt about its accuracy. She is concerned about potential drug interactions with methotrexate. She reports that her pain has been persistent and is affecting her daily activities, feeling fatigued by 1500. She believes her current symptoms are primarily due to an RA flare. Recent blood work showed some abnormalities, which she attributes to her recent illness. Rheumatoid Arthritis History Rheumatoid Factor Positive Anti CCP negative No erosive No rheumatoid nodules Morning stiffness Joint Swelling Joint replacement Joint Date Laterality Comment Knee 07/02/21 Right knee 2021 Left No other RA-related surgery Extra-Articular Features / Comorbidities Peripheral neuropathy Anemia Rheum/Ortho Arthrocentesis Injections (last 5) 10/05/2020 14:00 07/02/2021 06/18/2022 09:45 11/18/2022 Injection History Medication - Right 40 mg methylPREDNISolone acetate 40 mg/mL Medication - Left 40 mg methylPREDNISolone acetate 40 mg/mL Medication bupivacaine-dextrose 0.75 % (7.5 mg/mL) injection (SENSORCAINE MPF SPINAL), 2 mL bupivacaine-dextrose 0.75 % (7.5 mg/mL) injection (SENSORCAINE MPF SPINAL) - INTRASPINAL 1.8 mL - 06/18/2022 9:45:00 AM ropivacaine (PF) 5 mg/mL (0.5 %) injection (NAROPIN) - peripheral nerve block 20 mL - 11/18/2022 10:26:00 AM dexamethasone sodium phosphate injection (DECADRON) - peripheral nerve block 4 mg - 11/18/2022 10:26:00 AM Location knee Knee Site bilateral knee joints Details More values are hidden. Newest values shown. Go to activity for more data. Last Orthopaedic Surgery in Each Joint Aury had knee surgery on 11/18/2022 with Anival Ambriz. Aury had hip surgery on 06/18/2022 with Anival Ambriz. Patient-Entered Data Pain Scores 08/29/2023 08/29/2023 12/11/2024 Pain Evaluation Pain Score 0 0 4 Location Knee-Left Description Sharp Duration (Timeframe) Days Frequency Intermittent Intervention Medication;Reposition;Rel (more content not included)... [facility] 12-15-2024 History of Presen t illness Narrative Images from the original note were not included. Rheumatology Clinic FOLLOW UP Date of Service: 12/15/2024 Patient: Aury Metz Medical Record: [id number] Primary Care Physician: Timbo Bright MD Last Rheumatology visit: 06/10/2024 (with Mino Harris) History of Present Illness Aury Metz is a 59 year old White female who presents on 12/15/2024 for an in-person visit for evaluation of No chief complaint on file.. She is currently taking celecoxib, methotrexate sodium. RA seropos non erosive RF positive - 48 (01/11/2012) and CCP negative - 20 (05/01/2011). Her most recent KENY was positive (05/05/2013) S/p R TKR 2020 S/p R THR 2021 S/p L TKR 2022 Aury is RF positive - 48 (01/11/2012) and CCP negative - 20 (05/01/2011). Her most recent KENY was positive (05/05/2013). She does not have erosive disease. There are no rheumatoid nodules present. Aury has mild joint swelling. She reports morning stiffness . HISTORY OF PRESENT ILLNESS 59 year old with RF+, CCP negative (intermittent +CCP in the past) Nonerosive MTX 6 tabs weekly celebrex Past treatment: Plaquenil: LE numbness Methotrexate: Became ineffective after 7 years Arava: Rash Humira: SOB Enbrel: ?? Not sure why it was stopped. She thinks she only had one injection. Cymbalta: mind could not shut off. Xeljanz: Insurance would not cover, despite an appeal. Past treatment: Plaquenil: LE numbness Methotrexate: Became ineffective after 7 years Arava: Rash Humira: SOB Enbrel: ?? Not sure why it was stopped. She thinks she only had one injection. Xeljanz: Insurance would not cover, despite an appeal. S/p R TKR 2020 S/p R THR 2021 S/p L TKR 2022 Interval History Aury reports ongoing swelling and discomfort in her left knee, which has persisted since her knee replacement. She notes that the knee never felt right post-surgery and is concerned about the swelling and decreased functionality. She denies any recent trauma or falls affecting the left knee. She mentions a previous fall on the opposite side but does not believe it contributed to her current symptoms. Recent x-rays showed no abnormalities. She is currently taking prednisone, which has provided some relief, and is tapering down to 5 mg with plans to discontinue in 3 days. She has been back on methotrexate 0.8 mg for 2 weeks after a 6-week hiatus due to an infected tooth and subsequent illness, which she suspects was pneumonia and COVID-19. During this period, she was on antibiotics and prednisone. Aury also reports stiffness and pain in her hands, noting the development of Heberden's nodes and swelling. She experiences a sensation of tightness and swelling in her hands and has issues with her ankle. She denies recent x-rays of her hands and feet. She inquires about naltrexone for chronic pain management, mentioning a previous diagnosis of fibromyalgia but expressing doubt about its accuracy. She is concerned about potential drug interactions with methotrexate. She reports that her pain has been persistent and is affecting her daily activities, feeling fatigued by 1500. She believes her current symptoms are primarily due to an RA flare. Recent blood work showed some abnormalities, which she attributes to her recent illness. Rheumatoid Arthritis History Rheumatoid Factor Positive Anti CCP negative No erosive No rheumatoid nodules Morning stiffness Joint Swelling Joint replacement Joint Date Laterality Comment Knee 07/02/21 Right knee 2021 Left No other RA-related surgery Extra-Articular Features / Comorbidities Peripheral neuropathy Anemia Rheum/Ortho Arthrocentesis Injections (last 5) 10/05/2020 14:00 07/02/2021 06/18/2022 09:45 11/18/2022 Injection History Medication - Right 40 mg methylPREDNISolone acetate 40 mg/mL Medication - Left 40 mg methylPREDNISolone acetate 40 mg/mL Medication bupivacaine-dextrose 0.75 % (7.5 mg/mL) injection (SENSORCAINE MPF SPINAL), 2 mL bupivacaine-dextrose 0.75 % (7.5 mg/mL) injection (SENSORCAINE MPF SPINAL) - INTRASPINAL 1.8 mL - 06/18/2022 9:45:00 AM ropivacaine (PF) 5 mg/mL (0.5 %) injection (NAROPIN) - peripheral nerve block 20 mL - 11/18/2022 10:26:00 AM dexamethasone sodium phosphate injection (DECADRON) - peripheral nerve block 4 mg - 11/18/2022 10:26:00 AM Location knee Knee Site bilateral knee joints Details More values are hidden. Newest values shown. Go to activity for more data. Last Orthopaedic Surgery in Each Joint Aury had knee surgery on 11/18/2022 with Anival Ambriz. Aury had hip surgery on 06/18/2022 with Anival Ambriz. Patient-Entered Data Pain Scores 08/29/2023 08/29/2023 12/11/2024 Pain Evaluation Pain Score 0 0 4 Location Knee-Left Description Sharp Duration (Timeframe) Days Frequency Intermittent Intervention Medication;Reposition;Relaxation PROMIS Assessments 10/02/2023 04/30/2024 12/11/2024 PROMIS Global Health - (T-Scores - the mean of general population = 50. Five points is a clinically meaningful difference.) Physical T-Score 44.9 50.8 44.9 Mental T-Score 53.3 45.8 43.5 04/30/2024 06/07/2024 12/11/2024 PROMIS CAT Pain Interference PROMIS Pain Interference T-Score (range: 10 - 90) 56 (mild) 66 (moderate) PROMIS Pain Interference Percentile 27 5 PROMIS Adult Short Form-Global Health Score (Mental) 45.8 (Good) 43.5 (Good) 03/19/2023 06/07/2024 12/11/2024 PROMIS CAT Fatigue PROMIS Fatigue T-Score 55 (within normal limits) 51 (within normal limits) 55 (within normal limits) PROMIS Fatigue Percentile 31 46 31 03/19/2023 06/07/2024 12/11/2024 PROMIS PHYSICAL FUNCTION T-SCORE PROMIS Physical Function T-Score 38 (moderate dysfunction) 40 (mild dysfunction) 37 (moderate dysfunction) Physical Function Percentile 12 16 10 RAPID 3 Gonzalez Activities of Daily Living 12/11/2024 8:07 AM 06/07/2024 5:38 AM 03/19/2023 10:26 PM First answer obtained - 06/19/2020 9:12 AM Dress self? With SOME difficulty With SOME difficulty With SOME difficulty Without ANY difficulty Get in and out of bed? With SOME difficulty With SOME difficulty Without ANY difficulty With SOME difficulty Walk outdoors? With SOME difficulty With SOME difficulty With SOME difficulty Without ANY difficulty Wash and dry body? With SOME difficulty With SOME difficulty Without ANY difficulty Without ANY difficulty Get in and out of car? Without ANY difficulty With SOME difficulty With SOME difficulty With SOME difficulty RAPID 3 Disease Activity Weighed Score Levels: 0 - 1: Near Remission 1.3 - 2.0: Low Severity 2.3 - 4.0: Moderate Severity 4.3 - 10.0: High Severity 03/19/2023 06/07/2024 12/11/2024 RAPID-3 Weighed Score RAPID 3 Weighed Score 4.78 (High severity ) 3.44 (Moderate severity ) 5 (High severity ) Patient Health Questionnaire (PHQ-9) 04/18/2020 03/04/2022 04/30/2024 PHQ-9 Score 0 0 8 0 (0-4) minimal depression, (5-9) mild depression, (10-14) moderate depression, (15-19) moderately severe depression, (20-27) severe depression Review of Systems Review of Systems CONSTITUTION: HEENT: Positive for: Trouble swallowing and Dry mouth Negative for: Nosebleeds and Mouth sores RESPIRATORY: Negative for: Cough, Shortness of breath and Pain with breathing GASTROINTESTINAL: Positive for: Abdominal pain Negative for: Melena, Diarrhea and Heartburn MUSCULOSKELETAL: Positive for: Arthralgias, Myalgias, Muscle weakness, Joint swelling and Morning Joint Stiffness NEUROLOGICAL: Negative for: Headaches, Numbness and Memory loss SKIN: Positive for: Nail changes Negative for: Rash, Skin changes and Hair loss EYES: Positive for: Eye pain, Eye redness, Eye dryness and Visual disturbance CARDIOVASCULAR: Negative for: Chest pain and Leg swelling GENITOURINARY: Negative for: Hematuria HEMATOLOGIC/LYMPHATIC: Negative for: Swollen glands All other reviewed and negative other than HPI. Past Medical History PAST MEDICAL HISTORY Diagnosis Date Adenomatous colon polyp Asthma Bronchitis, not specified as acute or chronic Dizziness and giddiness Esophageal reflux 10/27/2006 High cholesterol Hyperplastic colon polyp Palpitations 06/08/2007 Stress echo at [facility] and EF% is 61. RA (rheumatoid arthritis) (HCC) Rheumatoid arthritis(714.0) 05/02/2011 Sleep apnea Thyroid disease Past Surgical History PAST SURGICAL HISTORY Procedure Laterality Date COLONOSCOPY 03/18/2023 Tubular Adenoma and Hyperplastic polyp EGD 08/29/2023 EGD W/O BRS SPEC VARICIES INJ 06/03/2013 ESOPHAGOSCOPY FLEX BALLOON DILAT <30 MM DIAM 2001 2005 Esophageal dilatation LAPS ABD PRTM&OMENTUM DX W/WO SPEC BR/WA SPX Laparoscopy LIG/TRNSXJ FLP TUBE ABDL/VAG APPR UNI/BI Tubal ligation TOTAL HIP REPLACEMENT Right 05/2022 TOTAL KNEE REPLACEMENT Right 07/02/2021 TOTAL KNEE REPLACEMENT Left 11/18/2022 Family History FAMILY HISTORY Problem Relation Age of Onset Heart Mother murmur COPD Mother other (High Cholesterol) Mother other (vocal cord paralysis ) Mother other (Abdominal Mass) Mother Not sure if cancerous Colon Cancer Mother Hypertension Father Lipids Sister Diabetes Brother Rheumatologic disease Brother Heart Brother Heart Brother mi Diabetes Brother Breast Cancer Son 18 people on Mom's side of family other (hodgkin) Son Arthritis Maternal Grandmother RA Social History Social History Tobacco Use Smoking status: Never Smokeless tobacco: Never Vaping Use Vaping status: Never Used Substance Use Topics Alcohol use: No Drug use: No Current Medications Current Outpatient Medications on File Prior to Visit Medication Sig celecoxib (CELEBREX) 100 mg capsule TAKE 1 CAPSULE BY MOUTH EVERY 12 HOURS Insulin Syringe-Needle U-100 (BD SAFETYGLIDE SYRINGE) 1 mL 27 gauge x 5/8 100 Each one time a week. methotrexate sodium 25 mg/mL soln Inject 0.8 mL subcutaneously one time a week. MULTIVITAMIN-FOLIC ACID-BIOTIN ORAL Take by mouth. thyroid, pork, (ARMOUR THYROID) 60 mg tablet Take 1 tablet by mouth once daily. Syringe with Needle, Disp, 1 mL 25 gauge x 1 syrg Use 1 syringe once a week for MTX SC injection folic acid 1 mg tablet take 1 tablet by mouth every day Cetirizine (ZYRTEC) 10 mg cap Take 1 capsule by mouth once daily as needed (allergies). albuterol HFA (PROVENTIL HFA, VENTOLIN HFA) 90 mcg/actuation inhaler Inhale 2 Puffs as instructed every 4 hours as needed for wheezing/shortness of breath. CPAP Pt with known NIKO confirmed by HSAT. AHI normalized with PAP. Has PAP device (Airsense 10 ([id number])). However, not receiving masks through current DME. Requests change. NIKO sx resolved with PAP. Please fit with Dreamwear under nose FFM (not pillows). Needs supplies. Lifetime supplies. Please provide us download in 4 weeks. (Patient not taking: Reported on 12/15/2024) No current facility-administered medications on file prior to visit. Labs Latest Ref Rng & Units 03/15/2023 03/13/2024 05/01/2024 10/23/2024 CBC WBC 3.70 - 11.00 k/uL 8.56 9.88 8.02 8.28 Hemoglobin 11.5 - 15.5 g/dL 12.1 11.1 12.3 11.9 Hematocrit 36.0 - 46.0 % 37.3 35.1 37.9 37.3 Platelet Count 150 - 400 k/uL 365 404 342 435 Abs Neut (ANC) 1.45 - 7.50 k/uL 5.14 5.27 5.39 Abs Lymph 1.00 - 4.00 k/uL 2.42 1.88 1.86 Latest Ref Rng & Units 03/15/2023 03/13/2024 05/01/2024 10/23/2024 CMP Sodium 136 - 144 mmol/L 139 139 141 140 Potassium 3.7 - 5.1 mmol/L 4.5 4.2 4.4 4.6 Chloride 98 - 107 mmol/L 102 101 104 103 CO2 22 - 30 mmol/L 25 25 26 27 Glucose 74 - 99 mg/dL 85 77 89 87 BUN 7 - 21 mg/dL 11 14 11 12 Creatinine 0.58 - 0.96 mg/dL 0.58 0.62 0.70 0.65 Calcium 8.5 - 10.2 mg/dL 10.1 10.0 9.6 9.6 AST 13 - 35 U/L 27 21 22 21 ALT 7 - 38 U/L 20 14 16 19 Alkaline Phosphatase 34 - 123 U/L 119 124 100 127 Latest Ref Rng & Units 02/19/2022 08/28/2022 03/15/2023 03/13/2024 ESR, WSR WSR 0 - 20 mm/hr 40 65 68 72 Latest Ref Rng & Units 02/19/2022 08/28/2022 03/15/2023 03/13/2024 CRP CRP <0.9 mg/dL 0.7 2.7 4.7 2.9 Latest Ref Rng & Units 05/05/2013 C3, C4 C3 68 - 260 mg/dL 111 C4 12 - 46 mg/dL 17 Latest Ref Rng & Units 12/12/2010 05/01/2011 01/11/2012 RF and CCP Rheumatoid Factor <20 IU/mL 99 57 48 CCP Antibody, IgG Units 20 Latest Ref Rng & Units 05/01/2011 06/19/2016 10/08/2017 04/22/2018 Hepatitis Screen Hep B Core Ab, Total Negative Negative Negative Negative Negative Hep B Surf Ab Qual Negative Positive Positive Positive Positive Hep C Antibody IA Negative Negative Negative Negative Negative HBsAg Negative Negative Negative Negative Negative 06/19/2016 10/08/2017 07/29/2018 08/13/2022 TB Screen TB Interpretation No evidence of current or previous infection with Mycobacterium tuberculosis. No evidence of current or previous infection with Mycobacterium tuberculosis. No evidence of current or previous infection with Mycobacterium tuberculosis. Infection with M. tuberculosis complex is unlikely. If latent tuberculosis infection is highly suspected, a negative result does not rule out the infection. Specimens from immunocompromised patients and those <5 years of age may show false negative results. In case of a contact investigation, please repeat 8-12 weeks after a known exposure. TB Result Negative Negative Negative Negative Latest Ref Rng & Units 12/12/2010 05/05/2013 Antibodies KENY NEGAT Negative Negative KENY by EIA <1.5 OD Ratio 1.5 1.7 KENY Titer NEGAT Negative Negative KENY Pattern Not applicable for negative result. Not applicable for negative result. DNA Antibody w/Confirmation <30 IU/mL <12 Sm Antibody <1.0 AI <0.2 Ribosomal COSMETIC MAKER <1.0 AI 0.3 Chromatin Antibody <1.0 AI <0.2 SSA Antibody <1.0 AI 0.2 SSB Antibody <1.0 AI 0.3 COSMETIC MAKER Antibody <1.0 AI <0.2 Scl-70 Abs, EIA <1.0 AI <0.2 Scleroderma Ab, IgG <1.0 AI <0.2 Centromere Ab <1.0 AI <0.2 SHEKHAR-1 ANTIBODY, IGG <1.0 AI <0.2 Latest Ref Rng & Units 03/29/2011 ANCA Myeloperoxidase <480 pmol/L 336 Latest Ref Rng & Units 02/23/2020 03/15/2020 04/17/2020 02/19/2022 Urinalysis Protein, Urine Negative Negative Negative PROTEIN UA (POCT) Negative mg/dL Negative Negative RBC, Urine 0-3 /HPF 0-3 /HPF Imaging Bone Density: None on file Last XR Hand/Finger - Impression Only XR HAND/WRIST SURVEY ARTHRITIS 1V PA BILATERAL Exam End: 12/15/2024 3:26 PM (Final result) Impression: IMPRESSION: Progression of wrist arthritis bilaterally with new intercarpal and radiocarpal narrowing compatible with inflammatory arthritis. No definite erosions. Right thumb osteoarthritis. ... Last MRI Hand - Impression Only No resulted procedures found. Last XR Chest - Impression Only XR CHEST 2V FRONTAL/LAT Exam End: 11/17/2018 10:06 AM (Final result) Impression: IMPRESSION: No acute radiographic abnormality. Data Collector: VIVIANA ... Last XR Cervical Spine - Impression Only No resulted procedures found. Labs: - Laboratory studies (date not provided): - Platelet count: Elevated (likely secondary to recent infection). - Remaining parameters: No significant abnormalities observed. Imaging: - Left Knee X-ray (date not provided): No evidence of loosening or other abnormalities; prosthesis intact. Health Maintenance Current Immunizations Reviewed on 08/28/2022 Name Date diphtheria tetanus (DT) vaccine, pediatric 04/22/2004 Physical Exam BP 126/68 Pulse 103 Temp (Src) 97.2 (Temporal) Wt 145 lb 6.4 oz (66.0kg) LMP 06/15/2015 Physical Exam Constitutional: - Appearance: Normal appearance. No acute distress. HENT: - Head: Atraumatic. - Eyes: - Extraocular Movements: Extraocular movements intact. - Conjunctiva/sclera: Conjunctivae normal. - Pupils: Pupils are equal, round, and reactive to light. Cardiovascular: - Rate and Rhythm: Normal rate and regular rhythm. - Pulses: Normal pulses. - Heart sounds: Normal heart sounds. Pulmonary: - Breath sounds: Normal breath sounds. Musculoskeletal: - Cervical back: Normal range of motion. - No peripheral synovitis - Shoulders FROM no effusion - Elbows FROM no effusion - Wrists FROM no effusion. Ulnar styloid prominence noted. 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 Neurological: - General: No focal deficit present. Psychiatric: - Mood and Affect: Mood normal. - Behavior: Behavior normal. Impression and Plan RA seropos non erosive RF positive - 48 (01/11/2012) and CCP negative - 20 (05/01/2011). Her most recent KENY was positive (05/05/2013) S/p R TKR 2020 S/p R THR 2021 S/p L TKR 2022 # Rheumatoid arthritis involving multiple sites with positive rheumatoid factor (HCC) (M05.79) Recent flare likely due to discontinuation of methotrexate for 6 weeks secondary to dental infection and subsequent illness. Currently on methotrexate 0.8 mg for 2 weeks. Reports stiffness and pain in hands and feet, with visible Heberden's nodes and ulnar styloid prominence. Recent lab work showed elevated platelet count and ferritin, likely due to recent illness. - Continue methotrexate 0.8 mg. - Ordered X-rays of hands and feet to assess for RA-related changes. - Slow taper of prednisone: continue 5 mg for a few more days, then reduce to 2.5 mg for a few more days to prevent flare. - Follow-up in 3-4 months to reassess symptoms and response to treatment. 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 - Continue methotrexate 0.8 mg. - Ensure refill of methotrexate prescription at [facility]. # Chronic pain of left knee (M25.562) Persistent pain and swelling in left knee post-replacement, not improved since surgery. Recent X-ray showed no obvious loosening or abnormalities. Pain and swelling may be partially masked by current prednisone use. - Schedule appointment with orthopedic surgeon after completing prednisone taper to allow for accurate assessment. - Consider referral to chronic pain management for evaluation of low-dose naltrexone if pain persists. Orders this visit: Office Visit on 12/15/24 XR HAND/WRIST SURVEY ARTHRITIS 1V PA BILATERAL XR FOOT SURVEY ARTHRITIS 1V AP BILATERAL Return in about 4 months (around 04/16/2025), or 3-4 mo with CASTING TRUCKER or PA and Dr. Harris 6-8 months. CC: PCP: Timbo Bright MD [id number] [facility] [address] Phone #: [phone] I spent a total of 30 minutes on the date of the service which included preparing to see the patient, [id number] patient care, completing clinical documentation, obtaining and/or reviewing separately obtained history, performing a medically appropriate examination, counseling and educating the patient/family/caregiver, ordering medications, tests, or procedures, independently interpreting results (not separately reported), and communicating results to the patient/family/caregiver. Mino Harris MD Rheumatology Date: December 16, 2024 documented in this encounter [facility] 12-15-2024 Note IMPRESSION: Progress ion of wrist arthritis bilaterally with new intercarpal and radiocarpal narrowing compatible with inflammatory arthritis. No definite erosions. Right thumb osteoarthritis. Data Collector: PSCB Transcribe Date/Time: Dec 15 2024 5:53P Dictated by : EUGENIA ROYAL MD This examination was interpreted and the report reviewed and electronically signed by: EUGENIA ROYAL MD on Dec 15 2024 6:01PM [facility] 12-15-2024 History of Presen t illness Narrative Radiology Service Progress Note PATIENT NAME: Aury Metz DATE OF SERVICE: December 15, 2024 TIME: 3:27 PM PATIENT IDENTITY VERIFICATION COMPLETED USING TWO (2) IDENTIFIERS: Name and Date of confirmed by patient verbally. FALL SCREENING: Has the patient had 2 falls in the last year or 1 fall with injury or currently using an Ambulatory Assistive Device (Walker, Cane, Wheelchair, Crutches, etc.)? No PATIENT GENDER DATA: Assigned female at . status: : No status: NO. PATIENT RELEVANT IMPLANT DATA REVIEWED: Not Applicable PATIENT PRESENTS WITH AN IMPLANTABLE OR ATTACHED TECHNOLOGY SERVICES MANAGER: No RADIOLOGY DEPARTMENT: General X-ray: Exam(s) Completed: Lower Extremity X-Ray(s): Feet, Bilateral Upper Extremity X-Ray(s): Hand, bilateral PERIPHERAL IV DATA: Not applicable SIGNED BY: RT Sally([place]) December 15, 2024 3:27 PM documented in this encounter [facility] 12-15-2024 Note HNO ID: [id number] Author: MIS JAIN RT([place]) Service: ? Author Type: Technologist Type: Progress Notes Filed: 12/15/2024 15:28 Note Text: Radiology Service Progress Note PATIENT NAME: Aury Metz DATE OF SERVICE: December 15, 2024 TIME: 3:27 PM PATIENT IDENTITY VERIFICATION COMPLETED USING TWO (2) IDENTIFIERS: Name and Date of confirmed by patient verbally. FALL SCREENING: Has the patient had 2 falls in the last year or 1 fall with injury or currently using an Ambulatory Assistive Device (Walker, Cane, Wheelchair, Crutches, etc.)? No PATIENT GENDER DATA: Assigned female at . status: : No status: NO. PATIENT RELEVANT IMPLANT DATA REVIEWED: Not Applicable PATIENT PRESENTS WITH AN IMPLANTABLE OR ATTACHED TECHNOLOGY SERVICES MANAGER: No RADIOLOGY DEPARTMENT: General X-ray: Exam(s) Completed: Lower Extremity X-Ray(s): Feet, Bilateral Upper Extremity X-Ray(s): Hand, bilateral PERIPHERAL IV DATA: Not applicable SIGNED BY: Mis Jain, (R) December 15, 2024 3:27 PM [facility] 12-15-2024 Instructions Mino Harris MD - 12/15/2024 3:08 PM EDT We discussed your left knee pain and swelling: - Your recent x-ray showed no obvious issues such as loosening or damage to the knee replacement. However, since your left knee continues to bother you, I recommend following up with your orthopedic surgeon. They are better equipped to evaluate and manage post-knee replacement concerns. - Please schedule your appointment with the orthopedic surgeon after you have tapered off prednisone to ensure they can assess your knee without the masking effects of the medication. - Continue tapering your prednisone as follows: stay on 5 mg for a few more days, then reduce to 2.5 mg for a few days before stopping. This gradual taper will help prevent a flare. We discussed your rheumatoid arthritis (RA) and recent flare: - Continue taking methotrexate as prescribed (0.8 mg). You mentioned a missed refill; please pick it up from your pharmacy. If you encounter any issues, contact our office. - You have been back on methotrexate for only 2 weeks. It typically takes 4-6 weeks to see full effects, so please allow more time for improvement. - We will order x-rays of your hands and feet to assess for any RA-related changes. These will help determine if additional treatment is needed. We discussed your recent illness and medication adjustments: - You were off methotrexate for several weeks due to an infected tooth and subsequent illness. This likely contributed to your recent RA flare. - Your blood work showed no significant abnormalities, and the findings were consistent with your recent illness rather than an active RA flare. We discussed chronic pain and fibromyalgia: - At this time, we will not pursue treatment for fibromyalgia or chronic pain, as your symptoms may still be related to your RA flare and recent medication interruptions. - If your pain persists after your RA is better controlled, we can revisit this and consider a referral to a chronic pain specialist to discuss options like low-dose naltrexone. Follow-up plan: - Complete the x-rays of your hands and feet as ordered. - Schedule an appointment with your orthopedic surgeon to evaluate your left knee. - We will follow up with a virtual visit in 3-4 months to reassess your progress. This may be with me or one of my nurse practitioners. - If you have any issues with your medications or symptoms worsen, please contact our office. Thank you for working through this plan with me. documented in this encounter [facility] 11-06-2024 Note HNO ID: [id number] Author: REILLY CULP PA-C Service: ? Author Type: Physician Stereo Plotter Operator Type: Progress Notes Filed: 11/06/2024 14:24 Note Text: This note was created using [employer]. Subjective Aury Metz is a 59 year old female. Patient is a 59-year-old female who complains of worsening congestion, sinus pressure, throat irritation, headache and cough that she has been experiencing for the past 2 weeks. Patient reports no fever but has experienced chills and myalgia. Patient does not have a exercise-induced asthma but states that her albuterol MDI is and is requesting a refill of same. Review of Systems HENT: Positive for congestion, sinus pressure, sinus pain and sore throat. Respiratory: Positive for cough. All other systems reviewed and are negative. Objective BP 120/76 Pulse 92 Temp 37.6 ?C (99.6 ?F) Resp 16 Wt 66.4 kg (146 lb 6.2 oz) LMP 06/15/2015 (Exact Date) SpO2 96% BMI 24.74 kg/m? Physical Exam Vitals and nursing note reviewed. Constitutional: Appearance: Normal appearance. She is normal weight. HENT: Head: Normocephalic and atraumatic. Right Ear: Tympanic membrane, ear canal and external ear normal. Left Ear: Tympanic membrane, ear canal and external ear normal. Nose: Nose normal. Mouth/Throat: Mouth: Mucous membranes are moist. Pharynx: Oropharynx is clear. Eyes: Extraocular Movements: Extraocular movements intact. Conjunctiva/sclera: Conjunctivae normal. Pupils: Pupils are equal, round, and reactive to light. Cardiovascular: Rate and Rhythm: Normal rate and regular rhythm. Pulses: Normal pulses. Heart sounds: Normal heart sounds. Pulmonary: Effort: Pulmonary effort is normal. Breath sounds: Normal breath sounds. Musculoskeletal: Cervical back: Normal range of motion and neck supple. Skin: General: Skin is warm and dry. Capillary Refill: Capillary refill takes less than 2 seconds. Neurological: General: No focal deficit present. Mental Status: She is alert and oriented to person, place, and time. Psychiatric: Mood and Affect: Mood normal. Behavior: Behavior normal. Thought Content: Thought content normal. Judgment: Judgment normal. Assessment and Plan Physical exam findings as noted above. Patient does have a significant allergy to cephalexin, however the patient clearly states that she can take Augmentin and has not experienced complication with that medication in the past. Patient was provided with prescriptions for Augmentin 875-125 mg, Tessalon 100 mg and an albuterol MDI. Patient is on methotrexate, however she states that her clinical trial associate has directed that she stop methotrexate while on antibiotic therapy and reports that she will do the same at this time. Supportive care instructions were discussed and patient verbalizes good understanding of same. CLINICAL IMPRESSION: Acute Sinusitis; Medication Refill ASSESSMENT/PLAN: 1. Acute non-recurrent sinusitis, unspecified location - ICD9: 461.9, ICD10: J01.90 - AMOXICILLIN 875 MG-POTASSIUM CLAVULANATE 125 MG TABLET - ALBUTEROL SULFATE HFA 90 MCG/ACTUATION AEROSOL INHALER - INHALATIONAL SPACING DEVICE - BENZONATATE 100 MG CAPSULE Reilly Culp PA-C [facility] 11-06-2024 History of Presen t illness Narrative This note was created using NoteWriter. Subjective Aury Metz is a 59 year old female. Patient is a 59-year-old female who complains of worsening congestion, sinus pressure, throat irritation, headache and cough that she has been experiencing for the past 2 weeks. Patient reports no fever but has experienced chills and myalgia. Patient does not have a exercise-induced asthma but states that her albuterol MDI is and is requesting a refill of same. Review of Systems HENT: Positive for congestion, sinus pressure, sinus pain and sore throat. Respiratory: Positive for cough. All other systems reviewed and are negative. Objective BP 120/76 Pulse 92 Temp 37.6 C (99.6 F) Resp 16 Wt 66.4 kg (146 lb 6.2 oz) LMP 06/15/2015 (Exact Date) SpO2 96% BMI 24.74 kg/m Physical Exam Vitals and nursing note reviewed. Constitutional: Appearance: Normal appearance. She is normal weight. HENT: Head: Normocephalic and atraumatic. Right Ear: Tympanic membrane, ear canal and external ear normal. Left Ear: Tympanic membrane, ear canal and external ear normal. Nose: Nose normal. Mouth/Throat: Mouth: Mucous membranes are moist. Pharynx: Oropharynx is clear. Eyes: Extraocular Movements: Extraocular movements intact. Conjunctiva/sclera: Conjunctivae normal. Pupils: Pupils are equal, round, and reactive to light. Cardiovascular: Rate and Rhythm: Normal rate and regular rhythm. Pulses: Normal pulses. Heart sounds: Normal heart sounds. Pulmonary: Effort: Pulmonary effort is normal. Breath sounds: Normal breath sounds. Musculoskeletal: Cervical back: Normal range of motion and neck supple. Skin: General: Skin is warm and dry. Capillary Refill: Capillary refill takes less than 2 seconds. Neurological: General: No focal deficit present. Mental Status: She is alert and oriented to person, place, and time. Psychiatric: Mood and Affect: Mood normal. Behavior: Behavior normal. Thought Content: Thought content normal. Judgment: Judgment normal. Assessment and Plan Physical exam findings as noted above. Patient does have a significant allergy to cephalexin, however the patient clearly states that she can take Augmentin and has not experienced complication with that medication in the past. Patient was provided with prescriptions for Augmentin 875-125 mg, Tessalon 100 mg and an albuterol MDI. Patient is on methotrexate, however she states that her clinical trial associate has directed that she stop methotrexate while on antibiotic therapy and reports that she will do the same at this time. Supportive care instructions were discussed and patient verbalizes good understanding of same. CLINICAL IMPRESSION: Acute Sinusitis; Medication Refill ASSESSMENT/PLAN: 1. Acute non-recurrent sinusitis, unspecified location - ICD9: 461.9, ICD10: J01.90 - AMOXICILLIN 875 MG-POTASSIUM CLAVULANATE 125 MG TABLET - ALBUTEROL SULFATE HFA 90 MCG/ACTUATION AEROSOL INHALER - INHALATIONAL SPACING DEVICE - BENZONATATE 100 MG CAPSULE Reilly Culp PA-C documented in this encounter [facility] 10-23-2024 History of Presen t illness Narrative Radiology Service Progress Note PATIENT NAME: Aury Metz DATE OF SERVICE: October 23, 2024 TIME: 8:36 AM PATIENT IDENTITY VERIFICATION COMPLETED USING TWO (2) IDENTIFIERS: Name and Date of confirmed by patient verbally. FALL SCREENING: Has the patient had 2 falls in the last year or 1 fall with injury or currently using an Ambulatory Assistive Device (Walker, Cane, Wheelchair, Crutches, etc.)? No PATIENT GENDER DATA: Assigned female at . status: : No status: NO. PATIENT RELEVANT IMPLANT DATA REVIEWED: Yes PATIENT PRESENTS WITH AN IMPLANTABLE OR ATTACHED TECHNOLOGY SERVICES MANAGER: No RADIOLOGY DEPARTMENT: General X-ray: Exam(s) Completed: Lower Extremity X-Ray(s): Knee, AP / LAT Bilateral PERIPHERAL IV DATA: Not applicable SIGNED BY: RT Laura(R) October 23, 2024 8:36 AM documented in this encounter [facility] 10-23-2024 Note HNO ID: [id number] Author: EDDIE UMANA RT(R) Service: ? Author Type: Log Hooker Type: Progress Notes Filed: 10/23/2024 08:53 Note Text: Radiology Service Progress Note PATIENT NAME: Aury Metz DATE OF SERVICE: October 23, 2024 TIME: 8:36 AM PATIENT IDENTITY VERIFICATION COMPLETED USING TWO (2) IDENTIFIERS: Name and Date of confirmed by patient verbally. FALL SCREENING: Has the patient had 2 falls in the last year or 1 fall with injury or currently using an Ambulatory Assistive Device (Walker, Cane, Wheelchair, Crutches, etc.)? No PATIENT GENDER DATA: Assigned female at . status: : No status: NO. PATIENT RELEVANT IMPLANT DATA REVIEWED: Yes PATIENT PRESENTS WITH AN IMPLANTABLE OR ATTACHED TECHNOLOGY SERVICES MANAGER: No RADIOLOGY DEPARTMENT: General X-ray: Exam(s) Completed: Lower Extremity X-Ray(s): Knee, AP / LAT Bilateral PERIPHERAL IV DATA: Not applicable SIGNED BY: RT Laura(R) October 23, 2024 8:36 AM [facility] 10-22-2024 Telephone encounter Note Called patient notified her that her xray orders have been signed [facility] 10-22-2024 Miscellaneous Notes Called patient notified her that her xray orders have been signed Patient called in. Once the orders have been approved, please call her at [phone] (home) She would like to get them scheduled polly. Thank you Patient called [facility] to arrange appointment for knee x-rays we have no orders in [facility] to accommodate this request please place order and advise patient once placed. Yes we can order XR knees bilateral 2 view AP/Lat. Can you ask if we can put it in [facility] or provide a letter. If letter please start and send to me for signature. thanks Per pt phone call she had fallen around 09/15 and is experiencing swelling in both knees. Pt stated she would like orders for knee x-rays and labs. documented in this encounter [facility] 10-22-2024 Telephone encounter Note Spoke with pt gave information provided.Pt voices understanding. [facility] 10-22-2024 Miscellaneous Notes Spoke with pt gave information provided.Pt voices understanding. Filed order Pt called in and reports she hasn't felt good all weekend. She reports she hasn't been able to think straight and has been really fatigued. She reports sometimes her iron gets low because she is on Methotrexate. Pt reports she has an appointment with her Child Nutrition Director but it isn't until November. She was asking if provider could put in labs for her to come I an get done, because she runs anemic and to check her iron. Please call and advise Pt. documented in this encounter [facility] 10-22-2024 Telephone encounter Note Filed order [facility] 10-22-2024 Telephone encounter Note Patient called in. Once the orders have been approved, please call her at [phone] (home) She would like to get them scheduled polly. Thank you [facility] 10-22-2024 Telephone encounter Note Patient called [facility] to arrange appointment for knee x-rays we have no orders in epic to accommodate this request please place order and advise patient once placed. [facility] 10-21-2024 Telephone encounter Note Yes we can order XR knees bilateral 2 view AP/Lat. Can you ask if we can put it in epic or provide a letter. If letter please start and send to me for signature. thanks [facility] 10-21-2024 Telephone encounter Note Per pt phone call she had fallen around 09/15 and is experiencing swelling in both knees. Pt stated she would like orders for knee x-rays and labs. [facility] 10-18-2024 Telephone encounter Note Pt called in and reports she hasn't felt good all weekend. She reports she hasn't been able to think straight and has been really fatigued. She reports sometimes her iron gets low because she is on Methotrexate. Pt reports she has an appointment with her Child Nutrition Director but it isn't until November. She was asking if provider could put in labs for her to come I an get done, because she runs anemic and to check her iron. Please call and advise Pt. [facility] 07-27-2024 Telephone encounter Note Images from the original note were not included. Most recent Rheumatology visit: 06/10/2024 (with Mino Harris) Last Bone Density on file: None on file Rheumatology Care Team: MINO HARRIS Recent Office Visits - This Specialty 06/10/2024 Rheumatoid arthritis involving multiple sites with positive rheumatoid factor (HCC) Rheumatology Mino Harris MD 03/26/2023 Rheumatoid arthritis involving multiple sites with positive rheumatoid factor (HCC) [facility] Mino Harris MD 11/11/2022 Rheumatoid arthritis involving multiple sites with positive rheumatoid factor (HCC) [facility] Peace Hunt PA-C Upcoming Rheumatology Appointments - Next 365 Days Visit Type Date Time Department [facility] 12/15/2024 2:00 PM [facility] [place] CBC: Latest Ref Rng & Units 03/13/2024 05/01/2024 CBC WBC 3.70 - 11.00 k/uL 9.88 8.02 Hemoglobin 11.5 - 15.5 g/dL 11.1 12.3 Hematocrit 36.0 - 46.0 % 35.1 37.9 Platelet Count 150 - 400 k/uL 404 342 Abs Neut (ANC) 1.45 - 7.50 k/uL 5.27 Abs Lymph 1.00 - 4.00 k/uL 1.88 Vitamin D: None on file in the last 6 months LFT: Latest Ref Rng & Units 03/13/2024 05/01/2024 CMP Sodium 136 - 144 mmol/L 139 141 Potassium 3.7 - 5.1 mmol/L 4.2 4.4 Chloride 98 - 107 mmol/L 101 104 CO2 22 - 30 mmol/L 25 26 Glucose 74 - 99 mg/dL 77 89 BUN 7 - 21 mg/dL 14 11 Creatinine 0.58 - 0.96 mg/dL 0.62 0.70 Calcium 8.5 - 10.2 mg/dL 10.0 9.6 AST 13 - 35 U/L 21 22 ALT 7 - 38 U/L 14 16 Alkaline Phosphatase 34 - 123 U/L 124 100 Hepatic Function: Creatinine: Latest Ref Rng & Units 03/13/2024 05/01/2024 Creatinine Creatinine 0.58 - 0.96 mg/dL 0.62 0.70 ESR/CRP: Latest Ref Rng & Units 03/15/2023 03/13/2024 ESR, WSR WSR 0 - 20 mm/hr 68 72 Latest Ref Rng & Units 03/15/2023 03/13/2024 CRP CRP <0.9 mg/dL 4.7 2.9 Uric Acid: None on file in the last 6 months Open Standing (Multiple Instance) Lab Orders None Open Future (Single Instance) Lab Orders None Es Daugherty RN [facility] 07-27-2024 Miscellaneous Notes Images from the original note were not included. Most recent Rheumatology visit: 06/10/2024 (with Mino Harris) Last Bone Density on file: None on file Rheumatology Care Team: MINO HARRIS Recent Office Visits - This Specialty 06/10/2024 Rheumatoid arthritis involving multiple sites with positive rheumatoid factor (HCC) Rheumatology Mino Harris MD 03/26/2023 Rheumatoid arthritis involving multiple sites with positive rheumatoid factor (HCC) [facility] Mino Harris MD 11/11/2022 Rheumatoid arthritis involving multiple sites with positive rheumatoid factor (HCC) [facility] Peace Hunt PA-C Upcoming Rheumatology Appointments - Next 365 Days Visit Type Date Time Department [facility] 12/15/2024 2:00 PM [facility] [place] CBC: Latest Ref Rng & Units 03/13/2024 05/01/2024 CBC WBC 3.70 - 11.00 k/uL 9.88 8.02 Hemoglobin 11.5 - 15.5 g/dL 11.1 12.3 Hematocrit 36.0 - 46.0 % 35.1 37.9 Platelet Count 150 - 400 k/uL 404 342 Abs Neut (ANC) 1.45 - 7.50 k/uL 5.27 Abs Lymph 1.00 - 4.00 k/uL 1.88 Vitamin D: None on file in the last 6 months LFT: Latest Ref Rng & Units 03/13/2024 05/01/2024 CMP Sodium 136 - 144 mmol/L 139 141 Potassium 3.7 - 5.1 mmol/L 4.2 4.4 Chloride 98 - 107 mmol/L 101 104 CO2 22 - 30 mmol/L 25 26 Glucose 74 - 99 mg/dL 77 89 BUN 7 - 21 mg/dL 14 11 Creatinine 0.58 - 0.96 mg/dL 0.62 0.70 Calcium 8.5 - 10.2 mg/dL 10.0 9.6 AST 13 - 35 U/L 21 22 ALT 7 - 38 U/L 14 16 Alkaline Phosphatase 34 - 123 U/L 124 100 Hepatic Function: Creatinine: Latest Ref Rng & Units 03/13/2024 05/01/2024 Creatinine Creatinine 0.58 - 0.96 mg/dL 0.62 0.70 ESR/CRP: Latest Ref Rng & Units 03/15/2023 03/13/2024 ESR, WSR WSR 0 - 20 mm/hr 68 72 Latest Ref Rng & Units 03/15/2023 03/13/2024 CRP CRP <0.9 mg/dL 4.7 2.9 Uric Acid: None on file in the last 6 months Open Standing (Multiple Instance) Lab Orders None Open Future (Single Instance) Lab Orders None Es Daugherty RN documented in this encounter [facility] 06-10-2024 Note HNO ID: [id number] Author: MINO HARRIS MD Service: ? Author Type: Physician Type: Progress Notes Filed: 06/10/2024 23:31 Note Text: Rheumatology Clinic FOLLOW UP Date of Service: 06/10/2024 Patient: Aury Metz Medical Record: [id number] Primary Care Physician: Timbo Bright MD Last Rheumatology visit: 03/26/2023 (with Mino Harris) History of Present Illness Aury Metz is a 59 year old White female who presents on 06/10/2024 for an in-person visit for evaluation of Rheumatoid Arthritis. She is currently taking celecoxib, methotrexate sodium, prednisone. RA seropos non erosive Aury is RF positive - 48 (01/11/2012) and CCP negative - 20 (05/01/2011). Her most recent KENY was positive (05/05/2013). She does not have erosive disease. There are no rheumatoid nodules present. Aury has mild joint swelling. She reports morning stiffness . HISTORY OF PRESENT ILLNESS 59 year old with RF+, CCP negative (intermittent +CCP in the past) Nonerosive MTX 6 tabs weekly celebrex Past treatment: Plaquenil: LE numbness Methotrexate: Became ineffective after 7 years Arava: Rash Humira: SOB Enbrel: ?? Not sure why it was stopped. She thinks she only had one injection. Cymbalta: mind could not shut off. Xearsenio: Insurance would not cover, despite an appeal. 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 Musculoskeletal History Joint swelling Joint Replacement(s) Joint Date Laterality Comment Knee 07/02/21 Right No other arthritis-related surgery Rheumatoid Arthritis History Rheumatoid Factor Positive Anti CCP negative No erosive No rheumatoid nodules Morning stiffness Joint Swelling Joint replacement Joint Date Laterality Comment Knee 07/02/21 Right No other RA-related surgery Extra-Articular Features / Comorbidities Anemia Rheum/Ortho Arthrocentesis Injections (last 5) 10/05/2020 14:00 07/02/2021 06/18/2022 09:45 11/18/2022 Injection History Medication - Right 40 mg methylPREDNISolone acetate 40 mg/mL Medication - Left 40 mg methylPREDNISolone acetate 40 mg/mL Medication bupivacaine-dextrose 0.75 % (7.5 mg/mL) injection (SENSORCAINE MPF SPINAL), 2 mL bupivacaine-dextrose 0.75 % (7.5 mg/mL) injection (SENSORCAINE MPF SPINAL) - INTRASPINAL 1.8 mL - 06/18/2022 9:45:00 AM ropivacaine (PF) 5 mg/mL (0.5 %) injection (NAROPIN) - peripheral nerve block 20 mL - 11/18/2022 10:26:00 AM dexamethasone sodium phosphate injection (DECADRON) - peripheral nerve block 4 mg - 11/18/2022 10:26:00 AM Location knee Knee Site bilateral knee joints Details More values are hidden. Newest values shown. Go to activity for more data. Last Orthopaedic Surgery in Each Joint Aury had knee surgery on 11/18/2022 with Anival Ambriz. Aury had hip surgery on 06/18/2022 with Anival Ambriz. Patient-Entered Data Pain Scores 08/29/2023 08/29/2023 08/29/2023 Pain Evaluation Pain Score 0 0 0 PROMIS Assessments 09/04/2023 10/02/2023 04/30/2024 PROMIS Global Health - (T-Scores - the mean of general population = 50. Five points is a clinically meaningful difference.) Physical T-Score 44.9 44.9 44.9 44.9 50.8 Mental T-Score 53.3 53.3 53.3 53.3 45.8 10/02/2023 04/30/2024 06/07/2024 PROMIS CAT Pain Interference PROMIS Pain Interference T-Score (range: 10 - 90) 56 (mild) PROMIS Pain Interference Percentile 27 PROMIS Adult Short Form-Global Health Score (Mental) 53.3 (Very Good) 45.8 (Good) 11/07/2022 03/19/2023 06/07/2024 PROMIS CAT Fatigue PROMIS Fatigue T-Score 51 (within normal limits) 55 (within normal limits) 51 (within normal limits) PROMIS Fatigue Percentile 46 31 46 02/03/2023 03/19/2023 06/07/2024 PROMIS PHYSICAL FUNCTION T-SCORE PROMIS Physical Function T-Score 36 (moderate dysfunction) 38 (moderate dysfunction) 40 (mild dysfunction) Physical Function Percentile 8 12 16 RAPID 3 Gonzalez Activities of Daily Living 06/07/2024 5:38 AM 03/19/2023 10:26 PM 11/07/2022 12:13 PM First answer obtained - 06/19/2020 9:12 AM Dress self? With SOME difficulty With SOME difficulty With SOME difficulty Without ANY difficulty Get in and out of bed? With SOME difficulty Without ANY difficulty Without ANY difficulty With SOME difficulty Walk outdoors? With SOME difficulty With SOME difficulty With MUCH difficulty Without ANY difficulty Wash and dry body? With SOME difficulty Without ANY difficulty Without ANY difficulty Get in and out of car? With SOME difficulty With SOME difficulty With SOME difficulty With SOME difficulty RAPID 3 Disease Activity Weighed Score Levels: 0 - 1: Near Remission 1.3 - 2.0: Low Severity 2.3 - 4.0: Mo (more content not included)... [facility] 06-10-2024 History of Presen t illness Narrative Images from the original note were not included. Rheumatology Clinic FOLLOW UP Date of Service: 06/10/2024 Patient: Aury Metz Medical Record: [id number] Primary Care Physician: Timbo Bright MD Last Rheumatology visit: 03/26/2023 (with Mino Harris) History of Present Illness Aury Metz is a 59 year old White female who presents on 06/10/2024 for an in-person visit for evaluation of Rheumatoid Arthritis. She is currently taking celecoxib, methotrexate sodium, prednisone. RA seropos non erosive Aury is RF positive - 48 (01/11/2012) and CCP negative - 20 (05/01/2011). Her most recent KENY was positive (05/05/2013). She does not have erosive disease. There are no rheumatoid nodules present. Aury has mild joint swelling. She reports morning stiffness . HISTORY OF PRESENT ILLNESS 59 year old with RF+, CCP negative (intermittent +CCP in the past) Nonerosive MTX 6 tabs weekly celebrex Past treatment: Plaquenil: LE numbness Methotrexate: Became ineffective after 7 years Arava: Rash Humira: SOB Enbrel: ?? Not sure why it was stopped. She thinks she only had one injection. Cymbalta: mind could not shut off. Xeljanz: Insurance would not cover, despite an appeal. 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 Musculoskeletal History Joint swelling Joint Replacement(s) Joint Date Laterality Comment Knee 07/02/21 Right No other arthritis-related surgery Rheumatoid Arthritis History Rheumatoid Factor Positive Anti CCP negative No erosive No rheumatoid nodules Morning stiffness Joint Swelling Joint replacement Joint Date Laterality Comment Knee 07/02/21 Right No other RA-related surgery Extra-Articular Features / Comorbidities Anemia Rheum/Ortho Arthrocentesis Injections (last 5) 10/05/2020 14:00 07/02/2021 06/18/2022 09:45 11/18/2022 Injection History Medication - Right 40 mg methylPREDNISolone acetate 40 mg/mL Medication - Left 40 mg methylPREDNISolone acetate 40 mg/mL Medication bupivacaine-dextrose 0.75 % (7.5 mg/mL) injection (SENSORCAINE MPF SPINAL), 2 mL bupivacaine-dextrose 0.75 % (7.5 mg/mL) injection (SENSORCAINE MPF SPINAL) - INTRASPINAL 1.8 mL - 06/18/2022 9:45:00 AM ropivacaine (PF) 5 mg/mL (0.5 %) injection (NAROPIN) - peripheral nerve block 20 mL - 11/18/2022 10:26:00 AM dexamethasone sodium phosphate injection (DECADRON) - peripheral nerve block 4 mg - 11/18/2022 10:26:00 AM Location knee Knee Site bilateral knee joints Details More values are hidden. Newest values shown. Go to activity for more data. Last Orthopaedic Surgery in Each Joint Aury had knee surgery on 11/18/2022 with Anival Ambriz. Aury had hip surgery on 06/18/2022 with Anival Ambriz. Patient-Entered Data Pain Scores 08/29/2023 08/29/2023 08/29/2023 Pain Evaluation Pain Score 0 0 0 PROMIS Assessments 09/04/2023 10/02/2023 04/30/2024 PROMIS Global Health - (T-Scores - the mean of general population = 50. Five points is a clinically meaningful difference.) Physical T-Score 44.9 44.9 44.9 44.9 50.8 Mental T-Score 53.3 53.3 53.3 53.3 45.8 10/02/2023 04/30/2024 06/07/2024 PROMIS CAT Pain Interference PROMIS Pain Interference T-Score (range: 10 - 90) 56 (mild) PROMIS Pain Interference Percentile 27 PROMIS Adult Short Form-Global Health Score (Mental) 53.3 (Very Good) 45.8 (Good) 11/07/2022 03/19/2023 06/07/2024 PROMIS CAT Fatigue PROMIS Fatigue T-Score 51 (within normal limits) 55 (within normal limits) 51 (within normal limits) PROMIS Fatigue Percentile 46 31 46 02/03/2023 03/19/2023 06/07/2024 PROMIS PHYSICAL FUNCTION T-SCORE PROMIS Physical Function T-Score 36 (moderate dysfunction) 38 (moderate dysfunction) 40 (mild dysfunction) Physical Function Percentile 8 12 16 RAPID 3 Gonzalez Activities of Daily Living 06/07/2024 5:38 AM 03/19/2023 10:26 PM 11/07/2022 12:13 PM First answer obtained - 06/19/2020 9:12 AM Dress self? With SOME difficulty With SOME difficulty With SOME difficulty Without ANY difficulty Get in and out of bed? With SOME difficulty Without ANY difficulty Without ANY difficulty With SOME difficulty Walk outdoors? With SOME difficulty With SOME difficulty With MUCH difficulty Without ANY difficulty Wash and dry body? With SOME difficulty Without ANY difficulty Without ANY difficulty Get in and out of car? With SOME difficulty With SOME difficulty With SOME difficulty With SOME difficulty RAPID 3 Disease Activity Weighed Score Levels: 0 - 1: Near Remission 1.3 - 2.0: Low Severity 2.3 - 4.0: Moderate Severity 4.3 - 10.0: High Severity 11/07/2022 03/19/2023 06/07/2024 RAPID-3 Weighed Score RAPID 3 Weighed Score Incomplete 4.78 (High severity ) 3.44 (Moderate severity ) Patient Health Questionnaire (PHQ-9) 04/18/2020 03/04/2022 04/30/2024 PHQ-9 Score 0 0 8 0 (0-4) minimal depression, (5-9) mild depression, (10-14) moderate depression, (15-19) moderately severe depression, (20-27) severe depression Review of Systems Review of Systems CONSTITUTION: Negative for: Fever and Recent weight change HEENT: Positive for: Mouth sores Negative for: Nosebleeds and Trouble swallowing RESPIRATORY: Positive for: Shortness of breath Negative for: Cough and Pain with breathing GASTROINTESTINAL: Positive for: Heartburn Negative for: Melena, Diarrhea and Abdominal pain MUSCULOSKELETAL: Positive for: Arthralgias, Myalgias, Muscle weakness, Joint swelling and Morning Joint Stiffness NEUROLOGICAL: Positive for: Headaches Negative for: Numbness and Memory loss SKIN: Positive for: Nail changes Negative for: Rash, Skin changes and Hair loss EYES: Positive for: Eye redness, Eye dryness and Visual disturbance CARDIOVASCULAR: Positive for: Leg swelling Negative for: Chest pain GENITOURINARY: Negative for: Dysuria and Hematuria HEMATOLOGIC/LYMPHATIC: Negative for: Swollen glands All other reviewed and negative other than HPI. Past Medical History PAST MEDICAL HISTORY Diagnosis Date Adenomatous colon polyp Asthma Bronchitis, not specified as acute or chronic Dizziness and giddiness Esophageal reflux 10/27/2006 High cholesterol Hyperplastic colon polyp Palpitations 06/08/2007 Stress echo at [facility] and EF% is 61. RA (rheumatoid arthritis) (HCC) Rheumatoid arthritis(714.0) 05/02/2011 Sleep apnea Thyroid disease Past Surgical History PAST SURGICAL HISTORY Procedure Laterality Date COLONOSCOPY 03/18/2023 Tubular Adenoma and Hyperplastic polyp EGD 08/29/2023 EGD W/O [facility] SPEC VARICIES INJ 06/03/2013 ESOPHAGOSCOPY FLEX BALLOON DILAT <30 MM DIAM 2001 2005 Esophageal dilatation LAPS ABD PRTM&OMENTUM DX W/WO SPEC BR/WA SPX Laparoscopy LIG/TRNSXJ FLP TUBE ABDL/VAG APPR UNI/BI Tubal ligation TOTAL HIP REPLACEMENT Right 05/2022 TOTAL KNEE REPLACEMENT Right 07/02/2021 TOTAL KNEE REPLACEMENT Left 11/18/2022 Family History FAMILY HISTORY Problem Relation Age of Onset Heart Mother murmur COPD Mother other (High Cholesterol) Mother other (vocal cord paralysis ) Mother other (Abdominal Mass) Mother Not sure if cancerous Colon Cancer Mother Hypertension Father Lipids Sister Diabetes Brother Rheumatologic disease Brother Heart Brother Heart Brother mi Diabetes Brother Breast Cancer Son 18 people on Mom's side of family other (hodgkin) Son Arthritis Maternal Grandmother RA Social History Social History Tobacco Use Smoking status: Never Smokeless tobacco: Never Vaping Use Vaping status: Never Used Substance Use Topics Alcohol use: No Drug use: No Current Medications Current Outpatient Medications on File Prior to Visit Medication Sig MULTIVITAMIN-FOLIC ACID-BIOTIN ORAL Take by mouth. thyroid, pork, (ARMOUR THYROID) 60 mg tablet Take 1 tablet by mouth once daily. celecoxib (CELEBREX) 100 mg capsule take 1 capsule by mouth every 12 hours Syringe with Needle, Disp, 1 mL 25 gauge x 1 syrg Use 1 syringe once a week for MTX SC injection folic acid 1 mg tablet take 1 tablet by [facility] USE 1 DEVICE ONLY ONCE FOR 1 DOSE albuterol HFA (PROVENTIL HFA, VENTOLIN HFA) 90 mcg/actuation inhaler Inhale 2 Puffs as instructed every 4 hours as needed for wheezing/shortness of breath. Cetirizine (ZYRTEC) 10 mg cap Take 1 capsule by mouth once daily as needed (allergies). CPAP Pt with known NIKO confirmed by [facility]. AHI normalized with PAP. Has PAP device (Airsense 10 ([id number])). However, not receiving masks through current DME. Requests change. NIKO sx resolved with PAP. Please fit with Dreamwear under nose FFM (not pillows). Needs supplies. Lifetime supplies. Please provide us download in 4 weeks. (Patient not taking: Reported on 06/10/2024) Current Facility-Administered Medications on File Prior to Visit Medication lidocaine (PF) 10 mg/mL (1 %) 1-2 mg injection (XYLOCAINE) lactated ringers iv infusion Labs Latest Ref Rng & Units 11/19/2022 03/15/2023 03/13/2024 05/01/2024 CBC WBC 3.70 - 11.00 k/uL 11.49 8.56 9.88 8.02 Hemoglobin 11.5 - 15.5 g/dL 10.0 12.1 11.1 12.3 Hematocrit 36.0 - 46.0 % 30.6 37.3 35.1 37.9 Platelet Count 150 - 400 k/uL 224 365 404 342 Abs Neut (ANC) 1.45 - 7.50 k/uL 5.14 5.27 Abs Lymph 1.00 - 4.00 k/uL 2.42 1.88 Latest Ref Rng & Units 11/19/2022 03/15/2023 03/13/2024 05/01/2024 CMP Sodium 136 - 144 mmol/L 141 139 139 141 Potassium 3.7 - 5.1 mmol/L 4.1 4.5 4.2 4.4 Chloride 98 - 107 mmol/L 106 102 101 104 CO2 22 - 30 mmol/L 26 25 25 26 Glucose 74 - 99 mg/dL 118 85 77 89 BUN 7 - 21 mg/dL 12 11 14 11 Creatinine 0.58 - 0.96 mg/dL 0.50 0.58 0.62 0.70 Calcium 8.5 - 10.2 mg/dL 9.1 10.1 10.0 9.6 AST 13 - 35 U/L 27 21 22 ALT 7 - 38 U/L 20 14 16 Alkaline Phosphatase 34 - 123 U/L 119 124 100 Latest Ref Rng & Units 02/19/2022 08/28/2022 03/15/2023 03/13/2024 ESR, WSR WSR 0 - 20 mm/hr 40 65 68 72 Latest Ref Rng & Units 02/19/2022 08/28/2022 03/15/202303/13/2024 CRP CRP <0.9 mg/dL 0.7 2.7 4.7 2.9 Latest Ref Rng & Units 05/05/2013 C3, C4 C3 68 - 260 mg/dL 111 C4 12 - 46 mg/dL 17 Latest Ref Rng & Units 12/12/2010 05/01/2011 01/11/2012 RF and CCP Rheumatoid Factor <20 IU/mL 99 57 48 CCP Antibody, IgG Units 20 Latest Ref Rng & Units 05/01/2011 06/19/2016 10/08/2017 04/22/2018 Hepatitis Screen Hep B Core Ab, Total Negative Negative Negative Negative Negative Hep B Surf Ab Qual Negative Positive Positive Positive Positive Hep C Antibody IA Negative Negative Negative Negative Negative HBsAg Negative Negative Negative Negative Negative 06/19/2016 10/08/2017 07/29/2018 08/13/2022 TB Screen TB Interpretation No evidence of current or previous infection with Mycobacterium tuberculosis. No evidence of current or previous infection with Mycobacterium tuberculosis. No evidence of current or previous infection with Mycobacterium tuberculosis. Infection with M. tuberculosis complex is unlikely. If latent tuberculosis infection is highly suspected, a negative result does not rule out the infection. Specimens from immunocompromised patients and those <5 years of age may show false negative results. In case of a contact investigation, please repeat 8-12 weeks after a known exposure. TB Result Negative Negative Negative Negative Latest Ref Rng & Units 12/12/2010 05/05/2013 Antibodies KENY NEGAT Negative Negative KENY by EIA <1.5 OD Ratio 1.5 1.7 KENY Titer NEGAT Negative Negative KENY Pattern Not applicable for negative result. Not applicable for negative result. DNA Antibody w/Confirmation <30 IU/mL <12 Sm Antibody <1.0 AI <0.2 Ribosomal COSMETIC MAKER <1.0 AI 0.3 Chromatin Antibody <1.0 AI <0.2 SSA Antibody <1.0 AI 0.2 SSB Antibody <1.0 AI 0.3 COSMETIC MAKER Antibody <1.0 AI <0.2 Scl-70 Abs, EIA <1.0 AI <0.2 Scleroderma Ab, IgG <1.0 AI <0.2 Centromere Ab <1.0 AI <0.2 SHEKHAR-1 ANTIBODY, IGG <1.0 AI <0.2 Latest Ref Rng & Units 03/29/2011 ANCA Myeloperoxidase <480 pmol/L 336 Latest Ref Rng & Units 02/23/2020 03/15/2020 04/17/2020 02/19/2022 Urinalysis Protein, Urine Negative Negative Negative PROTEIN UA (POCT) Negative mg/dL Negative Negative RBC, Urine 0-3 /HPF 0-3 /HPF Imaging Bone Density: None on file Last XR Hand/Finger - Impression Only XR HAND/WRIST SURVEY ARTHRITIS 1V PA BILATERAL Exam End: 02/19/2022 3:23 PM (Final result) Impression: IMPRESSION: Degenerative changes, no erosions. Data Collector: VIVIANA Transcribe Date/Time: Feb 19 2022 4:11P ... Last MRI Hand - Impression Only No resulted procedures found. Last XR Chest - Impression Only XR CHEST 2V FRONTAL/LAT Exam End: 11/17/2018 10:06 AM (Final result) Impression: IMPRESSION: No acute radiographic abnormality. Data Collector: VIVIANA ... Last XR Cervical Spine - Impression Only No resulted procedures found. Health Maintenance Current Immunizations Reviewed on 08/28/2022 Name Date diphtheria tetanus (DT) vaccine, pediatric 04/22/2004 Physical Exam BP 108/51 Pulse 69 Temp (Src) 97.9 (Temporal) Wt 139 lb 1.6 oz (63.1kg) LMP 06/15/2015 Physical Exam Vitals reviewed. Constitutional: Appearance: Normal appearance. HENT: Head: Atraumatic. Eyes: Extraocular Movements: Extraocular movements intact. Conjunctiva/sclera: Conjunctivae normal. Pupils: Pupils are equal, round, and reactive to light. Cardiovascular: Rate and Rhythm: Normal rate and regular rhythm. Pulses: Normal pulses. Heart sounds: Normal heart sounds. Pulmonary: Breath sounds: Normal breath sounds. Abdominal: General: Abdomen is flat. Palpations: Abdomen is soft. Musculoskeletal: Cervical back: Normal range of motion. 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 Neurological: General: No focal deficit present. Psychiatric: Mood and Affect: Mood normal. Behavior: Behavior normal. Impression and Plan RA seropos non erosive Diagnoses: (M05.79) Rheumatoid arthritis involving multiple sites with positive rheumatoid factor (HCC) (primary encounter diagnosis) (Z79.631) 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 (M65.9) Synovitis of hand 59 year old with RA seropos non erosive on MTX unable to tolerate TNFi & xeljanz (insurance issues) Now on MTX monotherapy Still with synovitis of MCPs and wrists Although reports feeling better this visit then before Will increase MTX for now to 0.8cc weekly May need bDMARD to maintain disease control She would like to hold off and see her response to MTX Patient disease activity exhibits improvement on medication of 20 % since initial visit based on the following means of evaluation: PROMIS-10 Global Physical Function T-Score, total # of tender joints, total # of swollen joints, pain score Orders this visit: Office Visit on 06/10/24 CONSULT TO PREVENTIVE CARD methotrexate sodium 25 mg/mL soln Insulin Syringe-Needle U-100 1 mL 27 gauge x 1/2 syrg predniSONE (DELTASONE) 5 mg tablet No follow-ups on file. CC: PCP: Timbo Bright MD [id number] [facility] [address] Phone #: [phone] I spent a total of 40 minutes on the date of the service which included preparing to see the patient, [id number] patient care, completing clinical documentation, obtaining and/or reviewing separately obtained history, performing a medically appropriate examination, counseling and educating the patient/family/caregiver, ordering medications, tests, or procedures, independently interpreting results (not separately reported), communicating results to the patient/family/caregiver, and care coordination (not separately reported). Mino Harris MD Rheumatology Date: June 10, 2024 Time: 11:17 PM documented in this encounter [facility] 05-28-2024 Note HNO ID: [id number] Author: EV BERGER APRN.DIE CUTTING MACHINE OPERATOR Service: ? Author Type: Nurse Specialist Type: Progress Notes Filed: 05/28/2024 16:02 Note Text: SUBJECTIVE: Covid-19 Vaccine(1) Never done Pneumococcal Vaccine(1 of 2 - PCV) Never done Depression Screening Never done Anxiety Screening Never done Shingrix Vaccine(1 of 2) Never done Cervical Cancer Screening due on 05/23/2012 DTaP,Tdap,Td Vaccine(2 - Tdap) due on 04/22/2014 Mammogram Screening due on 11/21/2022 RSV Vaccine(1 - 1-dose 60+ series) Never done Annual PCP Team Chronic Disease Visit due on 02/27/2024 Influenza Vaccine(1) due on 05/23/2024 HPI Aury Metz is a 59 year old female. PMH significant for ACTIVE PROBLEM LIST Awareness of Heartbeats Gastroesophageal Reflux Disease Anemia Emotional Lability Rheumatoid Arthritis of Multiple Sites Without Organ Or System Involvement With Positive Rheumatoid Factor (Hcc) Drug Allergy Allergy to Sulfa Drugs Rash and Nonspecific Skin Eruption Hypothyroidism Moderate Obstructive Sleep Apnea Acute Pain of Both Knees Knee Joint Stiffness, Bilateral Difficulty Walking Hip Stiffness, Unspecified Laterality Right Lumbar Radiculitis Lumbar Spondylosis Chronic Right-Sided Low Back Pain With Right-Sided Sciatica Rheumatoid Arthritis Involving Both Knees With Positive Rheumatoid Factor (Hcc) Exercise-Induced Asthma Status Post Knee Replacement Raynaud Phenomenon Calcific Tendinitis of Right Shoulder Cervical Radiculopathy Disorder of Acromioclavicular Joint Personal History of Rheumatoid Arthritis History of Hypothyroidism Fibromyalgia 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 Mindy (Iron Deficiency Anemia) Status Post Total Replacement of Right Hip Reaction to Contrast Media Primary Osteoarthritis of Left Knee S/P Total Knee Arthroplasty, Left Mino Harris MD Rheumatology Anival Ambriz MD Orthopedics She notes that she had an allergic type reaction to coffee with ashwaganda. She noted some throat tightening. She was triaged at the ER but ended up leaving before being seen. Today notes that this has resolved and no further symptoms since not drinking the coffee. Notes continues to be feel limited by rheumatology. Taking methotrexate folic acid and Celebrex. Notes CPAP mask really does not work. Has had trouble breathing with it. Not consistently using it currently due to this. Hypothyroidism. She is doing well on her current dose of thyroid replacement. TSH Date Value 05/01/2024 1.590 mIU/L 03/15/2023 1.310 mIU/L 09/06/2021 0.916 uU/mL 01/04/2021 1.080 uU/mL ) Review of Systems Constitutional: Negative. Musculoskeletal: Positive for arthralgias. Objective BP 100/62 Pulse 85 Resp 16 Ht 163.8 cm (5' 4.5) Wt 64.1 kg (141 lb 5 oz) LMP 06/15/2015 (Exact Date) BMI 23.88 kg/m? Physical Exam Vitals and nursing note reviewed. Constitutional: Appearance: Normal appearance. HENT: Head: Normocephalic and atraumatic. Eyes: Conjunctiva/sclera: Conjunctivae normal. Cardiovascular: Rate and Rhythm: Normal rate. Pulmonary: Effort: Pulmonary effort is normal. Musculoskeletal: Comments: Small palpable nodules bilateral wrists. Skin: General: Skin is warm and dry. Neurological: General: No focal deficit present. Mental Status: She is alert and oriented to person, place, and time. ALLERGIES Allergen Reactions Cephalexin Anaphylaxis, Other: See Comments Throat swelling. Has tolerated augmentin 850mg as op after this episode Aciphex [Rabeprazol* Other: See Comments Chest pain Ashwagandha Swelling coffee with ashwaganda, interacted with methotrexate, throat tightening Bactrim [Sulfametho* Vomiting Carafate [Sucralfat* Vomiting Darvocet-N 100 [Pro* Other: See Comments dizzy severe pain in head Erythromycin Vomiting Gluten Intolerance Iodinated Contrast * Shortness of Breath Vancomycin Itching Scalp itchy Medications methotrexate sodium 25 mg/mL solnINJECT 0.6 ML SUBCUTANEOUSLY ONE TIME A WEEK.Disp: 12 mLRfl: 2 MULTIVITAMIN-FOLIC ACID-BIOTIN ORALTake by mouth.Disp: Rfl: thyroid, pork, (ARMOUR THYROID) 60 mg tabletTake 1 tablet by mouth once daily.Disp: 90 tabletRfl: 3 celecoxib (CELEBREX) 100 mg capsuletake 1 capsule by mouth every 12 hoursDisp: 180 capsuleRfl: 1 Syringe with Needle, Disp, 1 mL 25 gauge x 1 syrgUse 1 syringe once a week for MTX SC injectionDisp: 100 EachRfl: 0 folic acid 1 mg tablettake 1 tablet by mouth every dayDisp: 90 tabletRfl: 3 Insulin Syringe-Needle U-100 1 mL 27 gauge x 1/2 syrg1 Each one time a week. To be used for methotrexate injectionDisp: 100 EachRfl: 1 OPTICHAMBER KERRY VHCUSE 1 DEVICE ONLY ONCE FOR 1 DOSEDisp: Rfl: albuterol HFA (PROVENTIL HFA, VENTOLIN HFA) 90 mcg/actuation inhalerInhale 2 Puffs as instructed every 4 hours as needed for wheezing/shortness of breath.Disp: 1 EachRfl: 2 CPAPPt with known NIKO confirmed by (more content not included)... [facility] 05-28-2024 History of Presen t illness Narrative SUBJECTIVE: Covid-19 Vaccine(1) Never done Pneumococcal Vaccine(1 of 2 - PCV) Never done Depression Screening Never done Anxiety Screening Never done Shingrix Vaccine(1 of 2) Never done Cervical Cancer Screening due on 05/23/2012 DTaP,Tdap,Td Vaccine(2 - Tdap) due on 04/22/2014 Mammogram Screening due on 11/21/2022 RSV Vaccine(1 - 1-dose 60+ series) Never done Annual PCP Team Chronic Disease Visit due on 02/27/2024 Influenza Vaccine(1) due on 05/23/2024 HPI Aury Metz is a 59 year old female. PMH significant for ACTIVE PROBLEM LIST Awareness of Heartbeats Gastroesophageal Reflux Disease Anemia Emotional Lability Rheumatoid Arthritis of Multiple Sites Without Organ Or System Involvement With Positive Rheumatoid Factor (Hcc) Drug Allergy Allergy to Sulfa Drugs Rash and Nonspecific Skin Eruption Hypothyroidism Moderate Obstructive Sleep Apnea Acute Pain of Both Knees Knee Joint Stiffness, Bilateral Difficulty Walking Hip Stiffness, Unspecified Laterality Right Lumbar Radiculitis Lumbar Spondylosis Chronic Right-Sided Low Back Pain With Right-Sided Sciatica Rheumatoid Arthritis Involving Both Knees With Positive Rheumatoid Factor (Hcc) Exercise-Induced Asthma Status Post Knee Replacement Raynaud Phenomenon Calcific Tendinitis of Right Shoulder Cervical Radiculopathy Disorder of Acromioclavicular Joint Personal History of Rheumatoid Arthritis History of Hypothyroidism Fibromyalgia 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 Mindy (Iron Deficiency Anemia) Status Post Total Replacement of Right Hip Reaction to Contrast Media Primary Osteoarthritis of Left Knee S/P Total Knee Arthroplasty, Left Mino Harris MD Rheumatology Anival Ambriz MD Orthopedics She notes that she had an allergic type reaction to coffee with ashwaganda. She noted some throat tightening. She was triaged at the ER but ended up leaving before being seen. Today notes that this has resolved and no further symptoms since not drinking the coffee. Notes continues to be feel limited by rheumatology. Taking methotrexate folic acid and Celebrex. Notes CPAP mask really does not work. Has had trouble breathing with it. Not consistently using it currently due to this. Hypothyroidism. She is doing well on her current dose of thyroid replacement. TSH Date Value 05/01/2024 1.590 mIU/L 03/15/2023 1.310 mIU/L 09/06/2021 0.916 uU/mL 01/04/2021 1.080 uU/mL ) Review of Systems Constitutional: Negative. Musculoskeletal: Positive for arthralgias. Objective BP 100/62 Pulse 85 Resp 16 Ht 163.8 cm (5' 4.5) Wt 64.1 kg (141 lb 5 oz) LMP 06/15/2015 (Exact Date) BMI 23.88 kg/m Physical Exam Vitals and nursing note reviewed. Constitutional: Appearance: Normal appearance. HENT: Head: Normocephalic and atraumatic. Eyes: Conjunctiva/sclera: Conjunctivae normal. Cardiovascular: Rate and Rhythm: Normal rate. Pulmonary: Effort: Pulmonary effort is normal. Musculoskeletal: Comments: Small palpable nodules bilateral wrists. Skin: General: Skin is warm and dry. Neurological: General: No focal deficit present. Mental Status: She is alert and oriented to person, place, and time. ALLERGIES Allergen Reactions Cephalexin Anaphylaxis, Other: See Comments Throat swelling. Has tolerated augmentin 850mg as op after this episode Aciphex [Rabeprazol* Other: See Comments Chest pain Ashwagandha Swelling coffee with ashwaganda, interacted with methotrexate, throat tightening Bactrim [Sulfametho* Vomiting Carafate [Sucralfat* Vomiting Darvocet-N 100 [Pro* Other: See Comments dizzy severe pain in head Erythromycin Vomiting Gluten Intolerance Iodinated Contrast * Shortness of Breath Vancomycin Itching Scalp itchy Medications methotrexate sodium 25 mg/mL soln^INJECT 0.6 ML SUBCUTANEOUSLY ONE TIME A WEEK.^Disp: 12 mL^Rfl: 2 MULTIVITAMIN-FOLIC ACID-BIOTIN ORAL^Take by mouth.^Disp: ^Rfl: thyroid, pork, (ARMOUR THYROID) 60 mg tablet^Take 1 tablet by mouth once daily.^Disp: 90 tablet^Rfl: 3 celecoxib (CELEBREX) 100 mg capsule^take 1 capsule by mouth every 12 hours^Disp: 180 capsule^Rfl: 1 Syringe with Needle, Disp, 1 mL 25 gauge x 1 syrg^Use 1 syringe once a week for MTX SC injection^Disp: 100 Each^Rfl: 0 folic acid 1 mg tablet^take 1 tablet by mouth every day^Disp: 90 tablet^Rfl: 3 Insulin Syringe-Needle U-100 1 mL 27 gauge x 1/2 syrg^1 Each one time a week. To be used for methotrexate injection^Disp: 100 Each^Rfl: 1 OPTICHAMBER KERRY [facility]^USE 1 DEVICE ONLY ONCE FOR 1 DOSE^Disp: ^Rfl: albuterol HFA (PROVENTIL HFA, VENTOLIN HFA) 90 mcg/actuation inhaler^Inhale 2 Puffs as instructed every 4 hours as needed for wheezing/shortness of breath.^Disp: 1 Each^Rfl: 2 CPAP^Pt with known NIKO confirmed by HSAT. AHI normalized with PAP. Has PAP device (Airsense 10 ([id number])). However, not receiving masks through current DME. Requests change. NIKO sx resolved with PAP. Please fit with Dreamwear under nose FFM (not pillows). Needs supplies. Lifetime supplies. Please provide us download in 4 weeks.^Disp: 1 Each^Rfl: 999 Cetirizine (ZYRTEC) 10 mg cap^Take 1 capsule by mouth once daily as needed (allergies). ^Disp: ^Rfl: PAST MEDICAL HISTORY No date: Adenomatous colon polyp No date: Asthma No date: Bronchitis, not specified as acute or chronic No date: Dizziness and giddiness 10/27/2006: Esophageal reflux No date: High cholesterol No date: Hyperplastic colon polyp 06/08/2007: Palpitations Comment: Stress echo at [facility] and EF% is 61. No date: RA (rheumatoid arthritis) ([facility]) 05/02/2011: Rheumatoid arthritis(714.0) No date: Sleep apnea No date: Thyroid disease Social History Tobacco Use Smoking status: Never Smokeless tobacco: Never Vaping Use Vaping status: Never Used Substance Use Topics Alcohol use: No Drug use: No Latest Ref Rng 03/13/2024 05/01/2024 WBC 3.70 - 11.00 k/uL 9.88 8.02 RBC 3.90 - 5.20 m/uL 3.92 4.15 Hemoglobin 11.5 - 15.5 g/dL 11.1 (L) 12.3 Hematocrit 36.0 - 46.0 % 35.1 (L) 37.9 MCV 80.0 - 100.0 fL 89.5 91.3 MCH 26.0 - 34.0 pg 28.3 29.6 MCHC 30.5 - 36.0 g/dL 31.6 32.5 RDW-CV 11.5 - 15.0 % 14.7 15.9 (H) Platelet Count 150 - 400 k/uL 404 (H) 342 MPV 9.0 - 12.7 fL 9.9 9.8 Neut% % 65.8 Abs Neut (ANC) 1.45 - 7.50 k/uL 5.27 Lymph% % 23.4 Abs Lymph 1.00 - 4.00 k/uL 1.88 [place]% % 7.5 Abs [place] <0.87 k/uL 0.60 Eosin% % 2.6 Abs Eosin <0.46 k/uL 0.21 Baso% % 0.5 Abs Baso <0.11 k/uL 0.04 Immature Gran % % 0.2 IMMATURE GRANS (ABS) <0.10 k/uL <0.03 NRBC /100 WBC 0.0 Absolute nRBC <0.01 k/uL <0.01 <0.01 DTYPE Auto Protein, Total 6.3 - 8.0 g/dL 7.8 7.3 Albumin 3.9 - 4.9 g/dL 4.1 4.3 Calcium 8.5 - 10.2 mg/dL 10.0 9.6 Bilirubin, Total 0.2 - 1.3 mg/dL 0.2 0.2 Alkaline Phosphatase 34 - 123 U/L 124 (H) 100 AST 13 - 35 U/L 21 22 ALT 7 - 38 U/L 14 16 Glucose 74 - 99 mg/dL 77 89 BUN 7 - 21 mg/dL 14 11 Creatinine 0.58 - 0.96 mg/dL 0.62 0.70 Sodium 136 - 144 mmol/L 139 141 Potassium 3.7 - 5.1 mmol/L 4.2 4.4 Chloride 98 - 107 mmol/L 101 104 CO2 22 - 30 mmol/L 25 26 Anion Gap 8 - 15 mmol/L 13 11 eGFR >=60 mL/min/1.73m 101 99 Iron 41 - 186 ug/dL 54 TIBC 232 - 386 ug/dL 260 Transferrin Saturation 15.0 - 57.0 % 20.8 WSR 0 - 20 mm/hr 72 (H) CRP <0.9 mg/dL 2.9 (H) TSH 0.270 - 4.200 mIU/L 1.590 Free T3 2.3 - 4.1 pg/mL 3.8 Ferritin 14.7 - 205.1 ng/mL 319.0 (H) Folate >4.7 ng/mL >20.0 Magnesium 1.7 - 2.3 mg/dL 2.1 ASSESSMENT/PLAN: 1. Acquired hypothyroidism - ICD9: 244.9, ICD10: E03.9 (primary diagnosis) - Take on an empty stomach either first thing in the morning or at bedtime. - continue current dose of Synthroid - Follow up in 12 months 2. NIKO (obstructive sleep apnea) - ICD9: 327.23, ICD10: G47.33 Notes recurrent mask is not working for her. Has not been able to use CPAP consistently due to this. Endorse an appointment to discuss further with sleep medicine. - CONSULT TO SLEEP MEDICINE - ADULT 3. Rheumatoid arthritis of multiple sites without organ or system involvement with positive rheumatoid factor (HCC) - ICD9: 714.0, ICD10: M05.79 Followed by rheumatology 4. Screening for cervical cancer - ICD9: V76.2, ICD10: Z12.4 It is been several years since she had a [facility] OPERATOR visit. Notes that menstrual cycle stopped when she started taking methotrexate. - PAP TEST - CONSULT TO GYNECOLOGY 5. Encounter for immunization - ICD9: V03.89, ICD10: Z23 -declines all at this time - TDAP VACCINE, AGE 7+ YR (ADACEL, BOOSTRIX) - INFLUENZA VACCINE, AGE 6MO-64YR, TRIVALENT (AFLURIA, FLULAVAL, FLUVIRIN, FLUZONE) - PFIZER[employer] COVID-19 VACCINE AGE 12+ YR - PNEUMOCOCCAL VACCINE, 20 VALENT (PREVNAR 20) - ZOSTER VACCINE, RECOMBINANT (SHINGRIX) - ZOSTER VACCINE, RECOMBINANT (SHINGRIX) - RSV VACCINE, BIVALENT (ABRYSVO) 6. Screening for depression - ICD9: V79.0, ICD10: Z13.31 - DEPRESSION SCREENING 7. Encounter for screening examination for other mental health and behavioral disorders - ICD9: V79.8, ICD10: Z13.39 - ANXIETY SCREENING Ev Berger APRN.CNS Medical Decision Making: Problems: Moderate: 2+ stable chronic illnesses Risk: Moderate: Drug management Medical Decision Making Level: 4 - Moderate , documented in this encounter [facility] 05-27-2024 Telephone encounter Note Images from the original note were not included. Pt requesting refill on sub-q methotrexate. Thank you. Most recent Rheumatology visit: 03/26/2023 (with Mino Harris) Last Bone Density on file: None on file Rheumatology Care Team: MINO HARRIS Recent Office Visits - This Specialty 03/26/2023 Rheumatoid arthritis involving multiple sites with positive rheumatoid factor (HCC) [facility] Mino Harris MD 11/11/2022 Rheumatoid arthritis involving multiple sites with positive rheumatoid factor (HCC) [facility] Peace Hunt PA-C 08/28/2022 Rheumatoid arthritis involving multiple sites with positive rheumatoid factor (HCC) [facility] Peace Hunt PA-C Upcoming Rheumatology Appointments - Next 365 Days Visit Type Date Time Department [facility] 06/10/2024 10:00 AM [facility] A50 CBC: Latest Ref Rng & Units 03/13/2024 05/01/2024 CBC WBC 3.70 - 11.00 k/uL 9.88 8.02 Hemoglobin 11.5 - 15.5 g/dL 11.1 12.3 Hematocrit 36.0 - 46.0 % 35.1 37.9 Platelet Count 150 - 400 k/uL 404 342 Abs Neut (ANC) 1.45 - 7.50 k/uL 5.27 Abs Lymph 1.00 - 4.00 k/uL 1.88 Vitamin D: None on file in the last 6 months LFT: Latest Ref Rng & Units 03/13/2024 05/01/2024 CMP Sodium 136 - 144 mmol/L 139 141 Potassium 3.7 - 5.1 mmol/L 4.2 4.4 Chloride 98 - 107 mmol/L 101 104 CO2 22 - 30 mmol/L 25 26 Glucose 74 - 99 mg/dL 77 89 BUN 7 - 21 mg/dL 14 11 Creatinine 0.58 - 0.96 mg/dL 0.62 0.70 Calcium 8.5 - 10.2 mg/dL 10.0 9.6 AST 13 - 35 U/L 21 22 ALT 7 - 38 U/L 14 16 Alkaline Phosphatase 34 - 123 U/L 124 100 Hepatic Function: Creatinine: Latest Ref Rng & Units 03/13/2024 05/01/2024 Creatinine Creatinine 0.58 - 0.96 mg/dL 0.62 0.70 ESR/CRP: Latest Ref Rng & Units 03/15/2023 03/13/2024 ESR, WSR WSR 0 - 20 mm/hr 68 72 Latest Ref Rng & Units 03/15/2023 03/13/2024 CRP CRP <0.9 mg/dL 4.7 2.9 Uric Acid: None on file in the last 6 months Open Standing (Multiple Instance) Lab Orders None Open Future (Single Instance) Lab Orders None [facility] 05-27-2024 Miscellaneous Notes Images from the original note were not included. Pt requesting refill on sub-q methotrexate. Thank you. Most recent Rheumatology visit: 03/26/2023 (with Mino Harris) Last Bone Density on file: None on file Rheumatology Care Team: MINO HARRIS Recent Office Visits - This Specialty 03/26/2023 Rheumatoid arthritis involving multiple sites with positive rheumatoid factor (HCC) [facility] Mino Harris MD 11/11/2022 Rheumatoid arthritis involving multiple sites with positive rheumatoid factor (HCC) [facility] Peace Hunt PA-C 08/28/2022 Rheumatoid arthritis involving multiple sites with positive rheumatoid factor (HCC) [facility] Peace Hunt PA-C Upcoming Rheumatology Appointments - Next 365 Days Visit Type Date Time Department [facility] 06/10/2024 10:00 AM [facility] A50 CBC: Latest Ref Rng & Units 03/13/2024 05/01/2024 CBC WBC 3.70 - 11.00 k/uL 9.88 8.02 Hemoglobin 11.5 - 15.5 g/dL 11.1 12.3 Hematocrit 36.0 - 46.0 % 35.1 37.9 Platelet Count 150 - 400 k/uL 404 342 Abs Neut (ANC) 1.45 - 7.50 k/uL 5.27 Abs Lymph 1.00 - 4.00 k/uL 1.88 Vitamin D: None on file in the last 6 months LFT: Latest Ref Rng & Units 03/13/2024 05/01/2024 CMP Sodium 136 - 144 mmol/L 139 141 Potassium 3.7 - 5.1 mmol/L 4.2 4.4 Chloride 98 - 107 mmol/L 101 104 CO2 22 - 30 mmol/L 25 26 Glucose 74 - 99 mg/dL 77 89 BUN 7 - 21 mg/dL 14 11 Creatinine 0.58 - 0.96 mg/dL 0.62 0.70 Calcium 8.5 - 10.2 mg/dL 10.0 9.6 AST 13 - 35 U/L 21 22 ALT 7 - 38 U/L 14 16 Alkaline Phosphatase 34 - 123 U/L 124 100 Hepatic Function: Creatinine: Latest Ref Rng & Units 03/13/2024 05/01/2024 Creatinine Creatinine 0.58 - 0.96 mg/dL 0.62 0.70 ESR/CRP: Latest Ref Rng & Units 03/15/2023 03/13/2024 ESR, WSR WSR 0 - 20 mm/hr 68 72 Latest Ref Rng & Units 03/15/2023 03/13/2024 CRP CRP <0.9 mg/dL 4.7 2.9 Uric Acid: None on file in the last 6 months Open Standing (Multiple Instance) Lab Orders None Open Future (Single Instance) Lab Orders None documented in this encounter [facility] 04-29-2024 Telephone encounter Note Patient notified. Gilda Schulz RN [facility] 04-29-2024 Miscellaneous Notes Patient notified. Gilda Schulz RN Labs ordered. Refill ok Patient has yearly visit scheduled with HERI Santos for 05/07/24. Asking if provider wishes to order any labs or thyroid labs? Please call patient with any orders. Pt requesting refill of pended thyroid medication: The last office visit in the department: 02/26/2023 Does the patient have a future office visit with this provider/department: Yes 05/07/2024 Requested Prescriptions Pending Prescriptions Disp Refills thyroid, pork, (ARMOUR THYROID) 60 mg tablet 90 tablet 3 Sig: Take 1 tablet by mouth once daily. Gilda Schulz RN documented in this encounter [facility] 04-29-2024 Telephone encounter Note Labs ordered. Refill ok [facility] 04-29-2024 Telephone encounter Note Patient has yearly visit scheduled with HERI Santos for 05/07/24. Asking if provider wishes to order any labs or thyroid labs? Please call patient with any orders. Pt requesting refill of pended thyroid medication: The last office visit in the department: 02/26/2023 Does the patient have a future office visit with this provider/department: Yes 05/07/2024 Requested Prescriptions Pending Prescriptions Disp Refills thyroid, pork, (ARMOUR THYROID) 60 mg tablet 90 tablet 3 Sig: Take 1 tablet by mouth once daily. Gilda Schulz RN [facility] 03-01-2024 Telephone encounter Note Spoke w patient. Having pain all over all joints. She feels she is having a flare of her RA. No fevers no recent cold sx. Discussed that this sounds atypical but no other localizing sx. Will trial prednisone w taper. Check labs To see her PCP if sx worsen She will call with an update. [facility] 03-01-2024 Miscellaneous Notes Spoke w patient. Having pain all over all joints. She feels she is having a flare of her RA. No fevers no recent cold sx. Discussed that this sounds atypical but no other localizing sx. Will trial prednisone w taper. Check labs To see her PCP if sx worsen She will call with an update. Pt identified by name and date of Pt had a flare in both hands and both knees for awhile and wants to know if provider could prescribe prednisone Pt in a lot pain and swelling is not going down in both knees Pt could be reached at [phone] documented in this encounter [facility] 02-27-2024 Telephone encounter Note Pt identified by name and date of Pt had a flare in both hands and both knees for awhile and wants to know if provider could prescribe prednisone Pt in a lot pain and swelling is not going down in both knees Pt could be reached at [phone] [facility] 12-30-2023 Miscellaneous Notes Most recent Rheumatology visit: 03/26/2023 (with Mino Harris) Rheumatology Care Team: MINO HARRIS Recent Office Visits - This Specialty 03/26/2023 Rheumatoid arthritis involving multiple sites with positive rheumatoid factor (HCC) [facility] Mino Harris MD 11/11/2022 Rheumatoid arthritis involving multiple sites with positive rheumatoid factor (HCC) [facility] Peace Hunt PA-C 08/28/2022 Rheumatoid arthritis involving multiple sites with positive rheumatoid factor (HCC) [facility] Peace Hunt PA-C Upcoming Rheumatology Appointments - Next 365 Days No appointments to display CBC: None on file in the last 6 months Vitamin D: None on file in the last 6 months LFT: None on file in the last 6 months Hepatic Function: Creatinine: None on file in the last 6 months ESR/CRP: None on file in the last 6 months Uric Acid: None on file in the last 6 months Open Standing (Multiple Instance) Lab Orders None Open Future (Single Instance) Lab Orders None documented in this encounter [facility] 12-16-2023 Miscellaneous Notes Per pt, She is experiencing a flare up in right ankle, both shoulders, and hands that has been ongoing for 2 weeks. Symptoms are progressing. Would like a callback to discuss options. [phone] cell documented in this encounter [facility] 12-10-2023 History of Presen t illness Narrative CHIEF COMPLAINT: Patient presents with: Procedure Follow Up: EGD 08/29/23 H pylori 11/10/23 HPI Aury Metz is a 58 year old female PMHx positive for RA here today for Procedure Follow Up (EGD 08/29/23 H pylori 11/10/23). Treated with quad tx for H. Pylori, f/u stool 10/2023 negative. Feeling well no GI complaints. Bms are regular, no blood/black coloring. H pylori 10/2023 negative EGD 08/2023 Impression: - Z-line regular, 36 cm from the incisors. - Normal esophagus. - Gastritis. Biopsied. - Normal examined duodenum. FINAL DIAGNOSIS A. Stomach, biopsy: - Chronic active gastritis with H. pylori-like organisms; see comment. Colon 02/2023 Impression: - Two 4 to 6 mm polyps in the ascending colon, removed with a hot snare. Complete resection. Partial retrieval. - One 7 mm polyp in the distal rectum, removed with a hot snare. Resected and retrieved. - External and internal hemorrhoids. FINAL DIAGNOSIS A. Ascending colon polyp, biopsy: - Tubular adenoma. B. Rectal polyp, biopsy: - Hyperplastic polyp. OV 10/2022 Auyr Metz is a 57 year old female with PMHx positive for RA who presents for GERD (Per 10/08 Convo in chart [facility] need colonoscopy ). Admits to chronic issues with GERD. On Celebrex BID less than a year. Recently started taking Prilosec 20 mg daily again regularly for the past 2 mos, does not know if it is helping yet. Chronically fluctuates in her weight by 10 lbs. Chronically on metho for her RA. Admits to lower abd pain, unchanged with BM. Bms are daily, regular consistency, intermittent blood in stools/[facility]. Current Outpatient Medications Medication Sig bismuth subsalicylate (BISMUTH) 262 mg chewable tablet Take 1 tablet by mouth four times daily for 14 days. Follow with 8 oz glass of water. omeprazole (PRILOSEC) 40 mg capsule Take 1 capsule by mouth two times a day for 14 days. On empty stomach at least 30 minutes before eating. methotrexate sodium 25 mg/mL soln Inject 0.6 mL subcutaneously one time a week. Syringe with Needle, Disp, 1 mL 25 gauge x 1 syrg Use 1 syringe once a week for MTX SC injection folic acid 1 mg tablet take 1 tablet by mouth every day celecoxib (CELEBREX) 100 mg capsule Take 1 capsule by mouth every 12 hours. Omeprazole Magnesium (PRILOSEC OTC) 20 mg tablet Will take two pills once daily and then decrease after symptoms controlled. May take 3 to 6 months to adequately treat. thyroid, pork, (ARMOUR THYROID) 60 mg tablet Take 1 tablet by mouth once daily. Insulin Syringe-Needle U-100 1 mL 27 gauge x 1/2 syrg 1 Each one time a week. To be used for methotrexate injection [facility] USE 1 DEVICE ONLY ONCE FOR 1 DOSE ondansetron (ZOFRAN) 4 mg tablet Take 1 tablet by mouth once daily as needed for nausea/vomiting (for nausea.). albuterol HFA (PROVENTIL HFA, VENTOLIN HFA) 90 mcg/actuation inhaler Inhale 2 Puffs as instructed every 4 hours as needed for wheezing/shortness of breath. CPAP Pt with known NIKO confirmed by [facility]AT. AHI normalized with PAP. Has PAP device (Airsense 10 ([id number])). However, not receiving masks through current DME. Requests change. NIKO sx resolved with PAP. Please fit with Dreamwear under nose FFM (not pillows). Needs supplies. Lifetime supplies. Please provide us download in 4 weeks. Cetirizine (ZYRTEC) 10 mg cap Take 1 capsule by mouth once daily as needed (allergies). No current facility-administered medications for this visit. Facility-Administered Medications Ordered in Other Visits Medication Dose Route Frequency lidocaine (PF) 10 mg/mL (1 %) 1-2 mg injection (XYLOCAINE) 0.1-0.2 mL INTRADERMAL PRN lactated ringers iv infusion 30 mL/hr INTRAVENOUS CONTINUOUS lidocaine (PF) 10 mg/mL (1 %) 1-2 mg injection (XYLOCAINE) 0.1-0.2 mL INTRADERMAL PRN lactated ringers iv infusion 30 mL/hr INTRAVENOUS CONTINUOUS ALLERGIES Allergen Reactions Cephalexin Anaphylaxis, Other: See Comments Throat swelling. Has tolerated augmentin 850mg as op after this episode Aciphex [Rabeprazol* Other: See Comments Chest pain Bactrim [Sulfametho* Vomiting Carafate [Sucralfat* Vomiting Darvocet-N 100 [Pro* Other: See Comments dizzy severe pain in head Erythromycin Vomiting Gluten Intolerance Iodinated Contrast * Shortness of Breath Vancomycin Itching Scalp itchy Social History Tobacco Use Smoking status: Never Smokeless tobacco: Never Vaping Use Vaping Use: Never used Substance Use Topics Alcohol use: No Drug use: No PAST MEDICAL HISTORY Diagnosis Date Adenomatous colon polyp Asthma Bronchitis, not specified as acute or chronic Dizziness and giddiness Esophageal reflux 10/27/2006 High cholesterol Hyperplastic colon polyp Palpitations 06/08/2007 Stress echo at [facility] and EF% is 61. RA (rheumatoid arthritis) (HCC) Rheumatoid arthritis(714.0) 05/02/2011 Sleep apnea Thyroid disease PAST SURGICAL HISTORY Procedure Laterality Date COLONOSCOPY 03/18/2023 Tubular Adenoma and Hyperplastic polyp EGD 08/29/2023 EGD W/O [facility] SPEC VARICIES INJ 06/03/2013 ESOPHAGOSCOPY FLEX BALLOON DILAT <30 MM DIAM 2001 2005 Esophageal dilatation LAPS ABD PRTM&OMENTUM DX W/WO SPEC BR/WA SPX Laparoscopy LIG/TRNSXJ FLP TUBE ABDL/VAG APPR UNI/BI Tubal ligation TOTAL HIP REPLACEMENT Right 05/2022 TOTAL KNEE REPLACEMENT Right 07/02/2021 TOTAL KNEE REPLACEMENT Left 11/18/2022 FAMILY HISTORY Problem Relation Age of Onset Heart Mother murmur COPD Mother other (High Cholesterol) Mother other (vocal cord paralysis ) Mother other (Abdominal Mass) Mother Not sure if cancerous Colon Cancer Mother Hypertension Father Lipids Sister Diabetes Brother Rheumatologic disease Brother Heart Brother Heart Brother mi Diabetes Brother Breast Cancer Son 18 people on Mom's side of family other (hodgkin) Son Arthritis Maternal Grandmother RA REVIEW OF SYSTEMS Review of Systems All other systems reviewed and are negative. PHYSICAL EXAM BP 112/62 Pulse 85 Ht 165.1 cm (5' 5) Wt 63.5 kg (140 lb) LMP 06/15/2015 (Exact Date) BMI 23.30 kg/m Physical Exam Constitutional: General: She is not in acute distress. Appearance: Normal appearance. She is normal weight. She is not ill-appearing, toxic-appearing or diaphoretic. HENT: Head: Normocephalic and atraumatic. Nose: Nose normal. Eyes: General: No scleral icterus. Right eye: No discharge. Left eye: No discharge. Extraocular Movements: Extraocular movements intact. Conjunctiva/sclera: Conjunctivae normal. Pupils: Pupils are equal, round, and reactive to light. Cardiovascular: Rate and Rhythm: Normal rate and regular rhythm. Pulses: Normal pulses. Heart sounds: Normal heart sounds. No murmur heard. No friction rub. No gallop. Pulmonary: Effort: No respiratory distress. Breath sounds: Normal breath sounds. No stridor. No wheezing, rhonchi or rales. Chest: Chest wall: No tenderness. Abdominal: General: Abdomen is flat. Bowel sounds are normal. There is no distension. Palpations: Abdomen is soft. There is no mass. Tenderness: There is no abdominal tenderness. There is no right CVA tenderness, left CVA tenderness, guarding or rebound. Hernia: No hernia is present. Musculoskeletal: General: Normal range of motion. Cervical back: Normal range of motion and neck supple. Skin: General: Skin is warm and dry. Neurological: General: No focal deficit present. Mental Status: She is alert and oriented to person, place, and time. Psychiatric: Mood and Affect: Mood normal. Behavior: Behavior normal. Assessment/Plan (A04.8) Helicobacter pylori infection (primary encounter diagnosis) (Z86.010) History of colonic polyps 1. Helicobacter pylori infection - S/P quadruple tx with confirmation stool negative 10/2023. Pt confirmed she was off of PPI for at least 14 days prior to stool study - Informed of potential risk for recurrence, advised to contact GI office if any returning sx. Reports she was previously consuming a lot of raw fish prior to episode and has since stopped intake. 2. History of colonic polyps - Due for repeat colon 2027 I spent a total of <10 minutes on the date of the service which included preparing to see the patient, [id number] patient care, completing clinical documentation, obtaining and/or reviewing separately obtained history, performing a medically appropriate examination, counseling and educating the patient/family/caregiver, ordering medications, tests, or procedures, communicating with other HCPs (not separately reported), independently interpreting results (not separately reported), communicating results to the patient/family/caregiver, and care coordination (not separately reported). Jesusita Kohler PA-C December 10, 2023 1:55 PM documented in this encounter [facility] 09-05-2023 Miscellaneous Notes Reviewed Jesusita Kohler PA-C Spoke with pt and advised her of below. She stated she would like to hold off on the referral for now. She states she is feeling pretty good. She will let us know if she needs it. Yudith Pdailla Ma From: Jesusita Kohler PA-C Sent: 09/04/2023 To: Aury Metz Subject: Unread Message Notification Dr. Kimberly Tejada replied back to me and is ok with you holding Methotrexate during treatment for H. Pylori. She is recommending pain management referral to help with chronic pains. Would you be interested in referral through [facility]? I can have my office help get this set up Jesusita Kohler PA-C [facility] Yudith Padilla Ma documented in this encounter [facility] 09-03-2023 Miscellaneous Notes Reviewed Jesusita Kohler PA-C Patient called in to let us know that appointment is scheduled for 12/10/23 Discussed bx results with pt. Will start on quadruple tx. Pt reports her Rheum usually lets her hold her metho during abx tx. Will send staff message to them regarding this to make sure it is ok from their standpoint. Advised low acidic diet, avoid EtOH while on tx. Avoid NSAIDs. Pt to perform stool 4 weeks after finishing tx. She will call office to schedule f/u GI appt around this time. Jesusita Kohler PA-C documented in this encounter [facility] 08-29-2023 Nurse Note Instructions reviewed with patient. States understanding [facility] 08-29-2023 Nurse Note Instructions reviewed with patient. States understanding Patient asked about taking antibiotics before procedure due to hip replacement 8 months ago and states she forgot to take her ATB. I spoke with Melissa Sequeira RN, Dr Sascha Xiong, and Dr Doran to ask them if she needs to take ATB, per all of them the guideline for gastroenterology does not require ATB for the procedure to be done. I personally tried to get ahold of the Orthopedic office of Noti Hubbard with [facility] and could not after 25 minutes of attempts. Patient spoke with Dr Shepherd and wants to move forward with the procedure without the antibiotics. documented in this encounter [facility] 08-29-2023 Nurse Note Patient asked about taking antibiotics before procedure due to hip replacement 8 months ago and states she forgot to take her ATB. I spoke with Melissa Sequeira RN, Dr Sascha Xiong, and Dr Doran to ask them if she needs to take ATB, per all of them the guideline for gastroenterology does not require ATB for the procedure to be done. I personally tried to get ahold of the Orthopedic office of [facility] Yuri MELLO with [facility] and could not after 25 minutes of attempts. Patient spoke with Dr Shepherd and wants to move forward with the procedure without the antibiotics. [facility] 08-20-2023 Miscellaneous Notes Most recent Rheumatology visit: 03/26/2023 (with Mino Harris) Recent Office Visits - This Specialty 03/26/2023 Rheumatoid arthritis involving multiple sites with positive rheumatoid factor (HCC) [facility] Mino Harris MD 11/11/2022 Rheumatoid arthritis involving multiple sites with positive rheumatoid factor ([facility]) [facility] Peace Hunt PA-C 08/28/2022 Rheumatoid arthritis involving multiple sites with positive rheumatoid factor (HCC) [facility] Peace Hunt PA-C Upcoming Rheumatology Appointments - Next 365 Days No appointments to display CBC: CBC Latest Ref Rng & Units 11/19/2022 03/15/2023 WBC 3.70 - 11.00 k/uL 11.49(H) 8.56 HEMOGLOBIN 11.5 - 15.5 g/dL 10.0(L) 12.1 HEMOGLOBIN, RUSSELL 11.5 - 15.5 g/dL - - HEMATOCRIT 36.0 - 46.0 % 30.6(L) 37.3 PLATELETS 150 - 400 k/uL 224 365 ABS NEUT (ANC) 1.45 - 7.50 k/uL - 5.14 ABS NEUT, RUSSELL 1.45 - 7.50 k/uL - - ABS LYMP, RUSSELL 1.00 - 4.00 k/uL - - ABS LYMPH 1.00 - 4.00 k/uL - 2.42 Vitamin D: Vitamin D Latest Ref Rng & Units 03/15/2020 03/15/2023 VITAMIN D 25 HYDROXY 31.0 - 80.0 ng/mL 32.8 48.4 LFT: CMP Latest Ref Rng & Units 11/19/2022 03/15/2023 SODIUM 136 - 144 mmol/L 141 139 SODIUM, RUSSELL 136 - 145 mmol/L - - SODIUM, RUSSELL 136 - 145 mmol/L - - POTASSIUM 3.7 - 5.1 mmol/L 4.1 4.5 POTASSIUM, RUSSELL 3.5 - 5.1 mmol/L - - CHLORIDE 97 - 105 mmol/L 106(H) 102 CHLORIDE, RUSSELL 98 - 107 mmol/L - - CO2 22 - 30 mmol/L 26 25 CO2, RUSSELL 21.0 - 32.0 mmol/L - - GLUCOSE 74 - 99 mg/dL 118(H) 85 GLUCOSE (U), RUSSELL NEGAT mg/dL - - GLUCOSE, RUSSELL 70 - 99 mg/dL - - BUN 7 - 21 mg/dL 12 11 BUN, RUSSELL 7 - 18 mg/dL - - CREATININE 0.58 - 0.96 mg/dL 0.50(L) 0.58 CREATININE, RUSSELL 0.6 - 1.0 mg/dL - - CALCIUM, RUSSELL 8.5 - 10.1 mg/dL - - CALCIUM, TOTAL 8.5 - 10.2 mg/dL 9.1 10.1 AST 13 - 35 U/L - 27 AST, RUSSELL 15 - 37 U/L - - ALT 7 - 38 U/L - 20 ALT, RUSSELL 30 - 65 U/L - - ALKALINE PHOSPHATASE 34 - 123 U/L - 119 Hepatic Function: Creatinine: Creatinine Latest Ref Rng & Units 11/19/2022 03/15/2023 CREAT 0.58 - 0.96 mg/dL 0.50(L) 0.58 ESR/CRP: ESR, WSR Latest Ref Rng & Units 08/28/2022 03/15/2023 WSR 0 - 20 mm/hr 65(H) 68(H) SED RATE, RUSSELL 0 - 20 mm/hr - - CRP Latest Ref Rng & Units 08/28/2022 03/15/2023 CRP <0.9 mg/dL 2.7(H) 4.7(H) Uric Acid: None on file in the last 6 months Open Standing (Multiple Instance) Lab Orders None Open Future (Single Instance) Lab Orders None Marsha Akhtar RN documented in this encounter [facility] 04-16-2023 History of Presen t illness Narrative Radiology Service Progress Note PATIENT NAME: Aury Metz DATE OF SERVICE: April 16, 2023 TIME: 4:40 PM PATIENT IDENTITY VERIFICATION COMPLETED USING TWO (2) IDENTIFIERS: Name and Date of confirmed by patient verbally. FALL SCREENING: Has the patient had 2 falls in the last year or 1 fall with injury or currently using an Ambulatory Assistive Device (Walker, Cane, Wheelchair, Crutches, etc.)? No PATIENT GENDER DATA: Female. status: : No status: NO. PATIENT RELEVANT IMPLANT DATA REVIEWED: Yes RADIOLOGY DEPARTMENT: General X-ray: Exam(s) Completed: Lower Extremity X-Ray(s): Knee, AP / Lat / Merchant Left and Wt. Bearing PERIPHERAL IV DATA: Not applicable SIGNED BY: RT Steve(R) April 16, 2023 4:40 PM documented in this encounter [facility] 03-27-2023 Miscellaneous Notes Pt contacted PCP office and requested recent lab results be faxed to Dr. Harris of Rheumatology at [phone]. Faxed as requested. Gilda Schulz RN documented in this encounter [facility] 03-26-2023 History of Presen t illness Narrative Images from the original note were not included. VIRTUAL VISIT PROGRESS NOTE This is a virtual visit using [employer] video visit. It required patient-provider interaction for the medical decision making as documented below. I have communicated my name and active licensure. The patient's identity and physical location were verified at the time of this visit. Either the patient or their legal customer service representative has been informed of the risks and benefits of -- and alternatives to -- treatment through a remote evaluation and consents to proceed with the evaluation remotely. Aury Metz is a 58 year old female seen for No chief complaint on file.. RA seropos non erosive HISTORY OF PRESENT ILLNESS 57 year old with RF+, CCP negative (intermittent +CCP in the past) Nonerosive Past treatment: Plaquenil: LE numbness Methotrexate: Became ineffective after 7 years Arava: Rash Humira: SOB Enbrel: ?? Not sure why it was stopped. She thinks she only had one injection. Cymbalta: mind could not shut off. Xelemilia: Insurance would not cover, despite an appeal. S/p R TKR 2020 INTERVAL HISTORY Having more pain fingers, wrists, shoulders and neck Did labs with PCP Dr. Bright Currently on MTX 0.6mg weekly Musculoskeletal History Joint swelling Joint Replacement(s) Joint Date Laterality Comment Knee 07/02/21 Right No other arthritis-related surgery Bone Density: None on file Rheumatoid Arthritis History Rheumatoid Factor Positive Anti CCP negative No erosive No rheumatoid nodules Morning stiffness Joint Swelling Joint replacement Joint Date Laterality Comment Knee 07/02/21 Right No other RA-related surgery Extra-Articular Features / Comorbidities Anemia Rheum/Ortho Arthrocentesis Injections (last 5) Some values may be hidden. Unless noted otherwise, only the newest values recorded on each date are displayed. Injection History 10/05/20 07/02/21 06/18/22 11/18/22 Medication - Right 40 mg methylPREDNISolone acetate 40 mg/mL Medication - Left 40 mg methylPREDNISolone acetate 40 mg/mL Medication bupivacaine-dextrose 0.75 % (7.5 mg/mL) injection (SENSORCAINE MPF SPINAL), 2 mL bupivacaine-dextrose 0.75 % (7.5 mg/mL) injection (SENSORCAINE MPF SPINAL) - INTRASPINAL 1.8 mL - 06/18/2022 9:45:00 AM ropivacaine (PF) 5 mg/mL (0.5 %) injection (NAROPIN) - peripheral nerve block 20 mL - 11/18/2022 10:26:00 AM dexamethasone sodium phosphate injection (DECADRON) - peripheral nerve block 4 mg - 11/18/2022 10:26:00 AM Location knee Knee Site bilateral knee joints Some values recorded on this date have been omitted. PATIENT ENTERED DATA: PROMIS Assessments PROMIS Global Health - (T-Scores - the mean of general population = 50. Five points is a clinically meaningful difference.) 08/26/2022 12/10/2022 03/19/2023 Physical T-Score 39.8 42.3 44.9 Mental T-Score 43.5 45.8 45.8 PROMIS CAT Pain Interference 08/26/2022 11/07/2022 03/19/2023 PROMIS Pain Interference T-Score (range: 10 - 90) 67 (moderate) 62 (moderate) 58 (mild) PROMIS Pain Interference Percentile 4 % 12 % 21 % PROMIS CAT Fatigue 08/26/2022 11/07/2022 03/19/2023 PROMIS Fatigue T-Score 57 (mild) 51 (within normal limits) 55 (within normal limits) PROMIS Fatigue Percentile 24 % 46 % 31 % PROMIS PHYSICAL FUNCTION T-SCORE 01/06/2023 02/03/2023 03/19/2023 PROMIS Physical Function T-Score 35 (moderate dysfunction) 36 (moderate dysfunction) 38 (moderate dysfunction) Physical Function Percentile 7 % 8 % 12 % RAPID 3 Gonzalez Activities of Daily Living 03/19/2023 10:26 PM 11/07/2022 12:13 PM 08/26/2022 9:02 PM First answer obtained - 06/19/2020 9:12 AM Dress self? With SOME difficulty With SOME difficulty With SOME difficulty Without ANY difficulty Get in and out of bed? Without ANY difficulty Without ANY difficulty Without ANY difficulty With SOME difficulty Walk outdoors? With SOME difficulty With MUCH difficulty Without ANY difficulty Without ANY difficulty Wash and dry body? Without ANY difficulty With SOME difficulty Without ANY difficulty Get in and out of car? With SOME difficulty With SOME difficulty With SOME difficulty With SOME difficulty RAPID 3 Disease Activity Weighed Score Levels: 0 - 1: Near Remission 1.3 - 2.0: Low Severity 2.3 - 4.0: Moderate Severity 4.3 - 10.0: High Severity RAPID-3 Weighed Score 08/26/2022 11/07/2022 03/19/2023 RAPID 3 Weighed Score - - - RAPID 3 Weighed Score 4.61 (High Severity (HS)) Incomplete 4.78 (High Severity (HS)) Patient Health Questionnaire (PHQ-9) PHQ-9 04/18/2020 04/18/2020 03/04/2022 Score 0 0 8 (0-4) minimal depression, (5-9) mild depression, (10-14) moderate depression, (15-19) moderately severe depression, (20-27) severe depression OTHER HISTORY REVIEWED (electronic chart updated): PAST MEDICAL HISTORY Diagnosis Date Asthma Bronchitis, not specified as acute or chronic Dizziness and giddiness Esophageal reflux 10/27/2006 High cholesterol Palpitations 06/08/2007 Stress echo at [facility] and EF% is 61. RA (rheumatoid arthritis) ([facility]) Rheumatoid arthritis(714.0) 05/02/2011 Sleep apnea Thyroid disease PAST SURGICAL HISTORY Procedure Laterality Date EGD W/O [facility] SPEC VARICIES INJ 06/03/2013 ESOPHAGOSCOPY FLEX BALLOON DILAT <30 MM DIAM 2001 2005 Esophageal dilatation LAPS ABD PRTM&OMENTUM DX W/WO SPEC BR/WA SPX Laparoscopy LIG/TRNSXJ FLP TUBE ABDL/VAG APPR UNI/BI Tubal ligation TOTAL HIP REPLACEMENT Right 05/2022 TOTAL KNEE REPLACEMENT Right 07/02/2021 TOTAL KNEE REPLACEMENT Left 11/18/2022 FAMILY HISTORY Problem Relation Age of Onset Heart Mother murmur COPD Mother other (High Cholesterol) Mother other (vocal cord paralysis ) Mother other (Abdominal Mass) Mother Not sure if cancerous Colon Cancer Mother Hypertension Father Lipids Sister Diabetes Brother Rheumatologic disease Brother Heart Brother Heart Brother mi Diabetes Brother Breast Cancer Son 18 people on Mom's side of family other (hodgkin) Son Arthritis Maternal Grandmother RA Social History Tobacco Use Smoking status: Never Smokeless tobacco: Never Vaping Use Vaping Use: Never used Substance Use Topics Alcohol use: No Drug use: No Current Outpatient Medications Medication Sig predniSONE (DELTASONE) 10 mg tablet Take 3 tablets by mouth once daily for 4 days, THEN 2 tablets once daily for 4 days, THEN 1 tablet once daily for 4 days, THEN 0.5 tablets once daily for 7 days. Syringe with Needle, Disp, (MONOJECT TB) 100 Syringes one time a week. methotrexate sodium 25 mg/mL soln Inject 0.6 mL subcutaneously one time a week. clindamycin (CLEOCIN) 300 mg capsule Omeprazole Magnesium (PRILOSEC OTC) 20 mg tablet Will take two pills once daily and then decrease after symptoms controlled. May take 3 to 6 months to adequately treat. thyroid, pork, (ARMOUR THYROID) 60 mg tablet Take 1 tablet by mouth once daily. celecoxib (CELEBREX) 100 mg capsule TAKE 1 CAPSULE BY MOUTH TWICE A DAY HYDROcodone-acetaminophen (NORCO) 5-325 mg per tablet Take 1-2 tablets by mouth every 6 hours as needed for pain. (Patient not taking: Reported on 02/26/2023) Insulin Syringe-Needle U-100 1 mL 27 gauge x 1/2 syrg 1 Each one time a week. To be used for methotrexate injection ondansetron orally disintegrating (ZOFRAN ODT) 4 mg disintegrating tablet Take 1 tablet by mouth every 8 hours as needed for nausea/vomiting for up to 12 doses. (Patient not taking: Reported on 02/26/2023) aspirin, enteric coated (ECOTRIN LOW STRENGTH) 81 mg EC tablet Take 1 tablet by mouth twice daily. [facility] USE 1 DEVICE ONLY ONCE FOR 1 DOSE KEVZARA 200 mg/1.14 mL pnij (Patient not taking: No sig reported) hyoscyamine sublingual (LEVSIN/SL) 0.125 mg Dissolve 1 tablet under the tongue every 4 hours as needed (for abdominal pain). ondansetron (ZOFRAN) 4 mg tablet Take 1 tablet by mouth once daily as needed for nausea/vomiting (for nausea.). albuterol HFA (PROVENTIL HFA, VENTOLIN HFA) 90 mcg/actuation inhaler Inhale 2 Puffs as instructed every 4 hours as needed for wheezing/shortness of breath. folic acid 1 mg tablet Take 1 tablet by mouth once daily. CPAP Pt with known NIKO confirmed by HSAT. AHI normalized with PAP. Has PAP device (Airsense 10 ([id number])). However, not receiving masks through current DME. Requests change. NIKO sx resolved with PAP. Please fit with Dreamwear under nose FFM (not pillows). Needs supplies. Lifetime supplies. Please provide us download in 4 weeks. Cetirizine (ZYRTEC) 10 mg cap Take 1 capsule by mouth once daily as needed (allergies). No current facility-administered medications for this visit. Facility-Administered Medications Ordered in Other Visits Medication Dose Route Frequency lidocaine (PF) 10 mg/mL (1 %) 1-2 mg injection (XYLOCAINE) 0.1-0.2 mL INTRADERMAL PRN lactated ringers iv infusion 30 mL/hr INTRAVENOUS CONTINUOUS ALLERGIES Allergen Reactions Cephalexin Anaphylaxis, Other: See Comments Throat swelling. Has tolerated augmentin 850mg as op after this episode Aciphex [Rabeprazol* Other: See Comments Chest pain Bactrim [Sulfametho* Vomiting Carafate [Sucralfat* Vomiting Darvocet-N 100 [Pro* Other: See Comments dizzy severe pain in head Erythromycin Vomiting Gluten Intolerance Iodinated Contrast * Shortness of Breath Vancomycin Itching Scalp itchy REVIEW OF SYSTEMS: Review of Systems CONSTITUTION: Negative for: Fever and Recent weight change HEENT: Negative for: Nosebleeds, Mouth sores, Trouble swallowing and Dry mouth RESPIRATORY: Negative for: Cough, Shortness of breath and Pain with breathing GASTROINTESTINAL: Positive for: Abdominal pain Negative for: Melena, Diarrhea and Heartburn MUSCULOSKELETAL: Positive for: Arthralgias, Myalgias, Muscle weakness, Joint swelling and Morning Joint Stiffness NEUROLOGICAL: Positive for: Headaches Negative for: Numbness and Memory loss SKIN: Negative for: Rash, Skin changes, Hair loss and Nail changes EYES: Positive for: Eye dryness and Visual disturbance Negative for: Eye pain and Eye redness CARDIOVASCULAR: Negative for: Chest pain and Leg swelling GENITOURINARY: Negative for: Dysuria and Hematuria HEMATOLOGIC/LYMPHATIC: Negative for: Swollen glandsAll other reviewed and negative other than HPI. 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, mild MCP swelling diffult to assess reports tenderness Weight 03/18/2023 02/26/2023 12/24/2022 11/18/2022 11/06/2022 WEIGHT 141 lb 141 lb 147 lb 149 lb 148 lb 1.6 oz Some recent data might be hidden Blood Pressure 03/18/2023 03/18/2023 02/26/2023 12/24/2022 12/10/2022 Systolic 96 110 118 106 110 Diastolic 50 64 62 64 70 Some recent data might be hidden ASSESSMENT AND PLAN: RA seropos non erosive Diagnoses: (M05.79) Rheumatoid arthritis involving multiple sites with positive rheumatoid factor (HCC) (primary encounter diagnosis) (Z79.60) Long-term use of immunosuppressant medication (M25.40) Joint swelling 58 year old with RA seropos non erosive on MTX unable to tolerate TNFi xeemilia insurance issues Presents with RA flare worsening joint swelling and pain, AM stiffness > 1 hour Will trial pred short taper Labs reviewed elevated APRs May need additioanl bDMARD She would like to hold off and see her response to pred May need bDMARD to maintain disease control Patient disease activity exhibits improvement on medication of 20 % since initial visit based on the following means of evaluation: PROMIS-10 Global Physical Function T-Score, total # of tender joints, total # of swollen joints, pain score Orders this visit: [facility] on 03/26/23 predniSONE (DELTASONE) 10 mg tablet Syringe with Needle, Disp, (MONOJECT TB) methotrexate sodium 25 mg/mL soln No follow-ups on file. I spent a total of 30 minutes on the date of the service which included preparing to see the patient, [id number] patient care, completing clinical documentation, obtaining and/or reviewing separately obtained history, performing a medically appropriate examination, counseling and educating the patient/family/caregiver, ordering medications, tests, or procedures, and communicating results to the patient/family/caregiver Mino Harris MD documented in this encounter [facility] 03-18-[address] Tee Batres Physician at bedside. [facility] 03-18-[address] Tee Batres Physician at bedside. Instructions reviewed with patient. States understanding documented in this encounter [facility] 03-18-2023 Nurse Note Instructions reviewed with patient. States understanding [facility] 03-18-2023 Anesthesiology Preoperative evaluation and management note HISTORY AND PHYSICAL Aury Metz, 58 year old female Current history and physical on file: No Is a new History and Physical required for today's visit? Yes Indication for procedure: Abdominal pain PROCEDURE(S) SCHEDULED FOR: Colonoscopy with or without biopsies and with or without removal of polyps or lesions, dilation (any means), treatment of bleeding (any means), based on clinical findings. BASELINE BEHAVIOR: Calm BASELINE ORIENTATION: A & O x3 All medications and allergies reviewed: Yes Skin Assessment: Warm dry mucus membranes pink Airway/Respiratory Assessment: Airway: visualization of the uvula- Yes Mouth: opening greater than 2 fingerbreadths- Yes Neck: full range of motion- Yes Breath sounds clear/equal- Yes Cardiac Assessment: Regular rate and rhythm without murmur Abdominal Assessment: Abdomen soft, non-tender, no masses or organomegaly. Sedation Plan: Moderate Additional Comments: None Tee Batres MD [facility] Work Phone: 03-18-2023 Miscellaneous Notes HISTORY AND PHYSICAL Aury Metz, 58 year old female Current history and physical on file: No Is a new History and Physical required for today's visit? Yes Indication for procedure: Abdominal pain PROCEDURE(S) SCHEDULED FOR: Colonoscopy with or without biopsies and with or without removal of polyps or lesions, dilation (any means), treatment of bleeding (any means), based on clinical findings. BASELINE BEHAVIOR: Calm BASELINE ORIENTATION: A & O x3 All medications and allergies reviewed: Yes Skin Assessment: Warm dry mucus membranes pink Airway/Respiratory Assessment: Airway: visualization of the uvula- Yes Mouth: opening greater than 2 fingerbreadths- Yes Neck: full range of motion- Yes Breath sounds clear/equal- Yes Cardiac Assessment: Regular rate and rhythm without murmur Abdominal Assessment: Abdomen soft, non-tender, no masses or organomegaly. Sedation Plan: Moderate Additional Comments: None Tee Batres MD documented in this encounter [facility] 03-15-2023 History of Presen t illness Narrative Patient Name: Aury Metz, 58 year old, female Patient Patient called on March 15, 2023 regarding abx prophylaxis for procedure Patient had L TKA with Dr. Ambriz on 11/18/22 - Patient reports having colonoscopy on Sunday 03/18 - Does not have abx prophylaxis prescription - Patient has anaphylactic reaction to cephalosporins - Reportedly previously tolerated augmentin, although normal dose would be 4 times over previously tolerated dosage - Patient also on methotrexate and penicillin usage with methotrexate can lead to methotrexate toxicity - Prescribed 600 mg clindamycin to be taken prior to procedure Concerns addressed, questions answered appropriately. Patient in agreement with plan and verbalized understanding. Lito Botello MD PGY2 Resident Orthopaedic Surgery Please page [phone]) from 5p-6a and on weekends for any issues. documented in this encounter [facility] 03-13-2023 Miscellaneous Notes Spoke with patient on phone. Patient notified to hold celebrex for five days prior to EGD and colonoscopy. Patient did not take today. Patient notified no need to hold MTX per Dr. Harris. Patient also instructed to touch base with GI team to ensure no additional recommendations on these from their end. Patient denies any additional questions at the time and will call with any additional questions or concerns. Marsha Akhtar RN Received call from patient. Patient is having colonoscopy on 03/18. Patient is wondering if she should hold celebrex and MTX (usually takes on Saturdays) at this time/how long to hold prior to procedure. Patient is also having EGD on 04/14 and is wondering if celebrex and MTX should be held for this as well. Patient also wondering when is ok to resume both medications. Marsha Akhtar RN documented in this encounter [facility] 03-04-2023 Miscellaneous Notes Contacted patient to schedule her EGD & colonoscopy. Patient decided that she wants to have her procedures done @ [facility]. Patient was offered [place] where we could of done sooner which she declined. [facility] will contact her to get her scheduled. Patient also has [facility] scheduling number. [phone] opt. [phone], Mindy Arguelles documented in this encounter [facility] 03-03-2023 History of Presen t illness Narrative Dr. Kohler, placed an order to have it done here at [facility]. We are checking with Dr. Dwyer to see if she is willing [facility] Mindy Arguelles This note was created using [employer]. Subjective Aury Metz is a 58 year old female. HISTORY Aury Metz is a 58 year old lady here for yearly exam and follow up appointment. Sometimes breathes in and feels like raw in her airways the past couple months. lasts 3 days. Did try antacids--omperazole and Pepcid. Helped maybe for a day but after that did not help much. Regurgitation of food mid-meal several times a week but not every meal. Coffee and chocolate are triggers. Depression Screening 04/18/2020 02/16/2022 03/04/2022 02/26/2023 PHQ-2 Score 0 0 0 0 PHQ-9 Score 0 - 8 - Depression screening tool completed and reviewed. Based on score and interview, patient is not at risk for depression. Screening tool discussed with patient, and I recommended no further intervention at this time. PAST MEDICAL HISTORY Diagnosis Date Bronchitis, not specified as acute or chronic Dizziness and giddiness Esophageal reflux 10/27/2006 High cholesterol Palpitations 06/08/2007 Stress echo at [facility] and EF% is 61. RA (rheumatoid arthritis) ([facility]) Rheumatoid arthritis(714.0) 05/02/2011 Current Outpatient Medications Medication Sig methotrexate sodium 25 mg/mL soln INJECT 0.6 ML SUBCUTANEOUSLY ONE TIME A WEEK. omeprazole (PRILOSEC) 20 mg capsule Take 1 capsule by mouth once daily. celecoxib (CELEBREX) 100 mg capsule TAKE 1 CAPSULE BY MOUTH TWICE A DAY Insulin Syringe-Needle U-100 1 mL 27 gauge x 1/2 syrg 1 Each one time a week. To be used for methotrexate injection aspirin, enteric coated (ECOTRIN LOW STRENGTH) 81 mg EC tablet Take 1 tablet by mouth twice daily. [facility] USE 1 DEVICE ONLY ONCE FOR 1 DOSE hyoscyamine sublingual (LEVSIN/SL) 0.125 mg Dissolve 1 tablet under the tongue every 4 hours as needed (for abdominal pain). ondansetron (ZOFRAN) 4 mg tablet Take 1 tablet by mouth once daily as needed for nausea/vomiting (for nausea.). albuterol HFA (PROVENTIL HFA, VENTOLIN HFA) 90 mcg/actuation inhaler Inhale 2 Puffs as instructed every 4 hours as needed for wheezing/shortness of breath. thyroid, pork, (ARMOUR THYROID) 60 mg tablet Take 1 tablet by mouth once daily. folic acid 1 mg tablet Take 1 tablet by mouth once daily. Cetirizine (ZYRTEC) 10 mg cap Take 1 capsule by mouth once daily as needed (allergies). HYDROcodone-acetaminophen (NORCO) 5-325 mg per tablet Take 1-2 tablets by mouth every 6 hours as needed for pain. (Patient not taking: Reported on 02/26/2023) ondansetron orally disintegrating (ZOFRAN ODT) 4 mg disintegrating tablet Take 1 tablet by mouth every 8 hours as needed for nausea/vomiting for up to 12 doses. (Patient not taking: Reported on 02/26/2023) KEVZARA 200 mg/1.14 mL pnij (Patient not taking: No sig reported) CPAP Pt with known NIKO confirmed by [facility]. AHI normalized with PAP. Has PAP device (Airsense 10 ([id number])). However, not receiving masks through current DME. Requests change. NIKO sx resolved with PAP. Please fit with Dreamwear under nose FFM (not pillows). Needs supplies. Lifetime supplies. Please provide us download in 4 weeks. No current facility-administered medications for this visit. ALLERGIES Allergen Reactions Cephalexin Anaphylaxis, Other: See Comments Throat swelling. Has tolerated augmentin 850mg as op after this episode Aciphex [Rabeprazol* Other: See Comments Chest pain Bactrim [Sulfametho* Vomiting Carafate [Sucralfat* Vomiting Darvocet-N 100 [Pro* Other: See Comments dizzy severe pain in head Erythromycin Vomiting Gluten Intolerance Iodinated Contrast * Shortness of Breath Vancomycin Itching Scalp itchy FAMILY HISTORY Problem Relation Age of Onset Heart Mother murmur COPD Mother other (High Cholesterol) Mother other (vocal cord paralysis ) Mother other (Abdominal Mass) Mother Not sure if cancerous Hypertension Father Lipids Sister Diabetes Brother Rheumatologic disease Brother Heart Brother Heart Brother mi Diabetes Brother Arthritis Maternal Grandmother RA Breast Cancer Son 18 people on Mom's side of family other (hodgkin) Son Colon Cancer No Family History Social History Tobacco Use Smoking status: Never Smokeless tobacco: Never Vaping Use Vaping Use: Never used Substance Use Topics Alcohol use: No Drug use: No Review of Systems Objective BP 118/62 Pulse 96 Temp 36.2 C (97.2 F) Resp 18 Ht 165 cm (5' 4.96) Wt 64 kg (141 lb) LMP 06/15/2015 (Exact Date) SpO2 97% BMI 23.49 kg/m Last 5 Encounter Wt Readings: Date: Wt: 02/26/2023 64 kg (141 lb) 12/24/2022 66.7 kg (147 lb) 11/06/2022 67.2 kg (148 lb 1.6 oz) 11/01/2022 67.6 kg (149 lb) 09/24/2022 67.6 kg (149 lb) Last 1 Waist Readings: Date: Waist: 03/29/11 29 (73 cm.) Estimated body mass index is 23.49 kg/m as calculated from the following: Height as of this encounter: 165 cm (5' 4.96). Weight as of this encounter: 64 kg (141 lb). Last 5 Encounter BP Readings: Date: BP: 02/26/2023 118/62 12/24/2022 106/64 12/10/2022 110/70 12/06/2022 116/68 12/04/2022 116 Physical Exam Vitals reviewed. Constitutional: Appearance: She is well-developed. HENT: Head: Normocephalic and atraumatic. Right Ear: External ear normal. Left Ear: External ear normal. Nose: Nose normal. Eyes: Conjunctiva/sclera: Conjunctivae normal. Neck: Thyroid: No thyromegaly. Cardiovascular: Rate and Rhythm: Normal rate and regular rhythm. Pulses: Normal pulses. Heart sounds: Normal heart sounds. No murmur heard. No friction rub. No gallop. Pulmonary: Effort: Pulmonary effort is normal. Breath sounds: Normal breath sounds. Abdominal: General: Bowel sounds are normal. There is no distension. Palpations: Abdomen is soft. There is no mass. Tenderness: There is no abdominal tenderness. Musculoskeletal: General: No deformity. Normal range of motion. Comments: paravertebral muscles with spasm thoracic spine around T5-T9 Lymphadenopathy: Cervical: No cervical adenopathy. Skin: General: Skin is warm and dry. Coloration: Skin is not jaundiced or pale. Findings: No rash. Neurological: General: No focal deficit present. Mental Status: She is alert and oriented to person, place, and time. Cranial Nerves: No cranial nerve deficit. Sensory: No sensory deficit. Motor: No abnormal muscle tone. Coordination: Coordination normal. Deep Tendon Reflexes: Reflexes normal. Psychiatric: Attention and Perception: Attention and perception normal. Mood and Affect: Mood and affect normal. Speech: Speech normal. Behavior: Behavior normal. Thought Content: Thought content normal. Cognition and Memory: Cognition and memory normal. Judgment: Judgment normal. Component Latest Ref Rng & Units 05/31/2022 06/05/2022 06/19/2022 08/28/2022 11/01/2022 11/19/2022 WBC 3.70 - 11.00 k/uL 8.75 8.25 8.84 11.49 (H) RBC 3.90 - 5.20 m/uL 3.64 (L) 2.98 (L) 4.05 3.24 (L) Hemoglobin 11.5 - 15.5 g/dL 10.8 (L) 8.8 (L) 11.8 10.0 (L) Hematocrit 36.0 - 46.0 % 32.6 (L) 28.0 (L) 37.2 30.6 (L) MCV 80.0 - 100.0 fL 89.6 94.0 91.9 94.4 MCH 26.0 - 34.0 pg 29.7 29.5 29.1 30.9 MCHC 30.5 - 36.0 g/dL 33.1 31.4 31.7 32.7 RDW-CV 11.5 - 15.0 % 13.9 14.8 15.9 (H) 15.6 (H) Platelet Count 150 - 400 k/uL 433 (H) 295 409 (H) 224 MPV 9.0 - 12.7 fL 9.3 9.5 9.8 9.6 Neut% % 65.7 67.7 Abs Neut (ANC) 1.45 - 7.50 k/uL 5.75 5.99 Lymph% % 24.7 21.8 Abs Lymph 1.00 - 4.00 k/uL 2.16 1.93 [place]% % 7.7 7.5 Abs [place] <0.87 k/uL 0.67 0.66 Eosin% % 1.5 1.6 Abs Eosin <0.46 k/uL 0.13 0.14 Baso% % 0.2 0.5 Abs Baso <0.11 k/uL <0.03 0.04 Immature Gran % % 0.2 0.9 IMMATURE GRANS (ABS) <0.10 k/uL <0.03 0.08 NRBC /100 WBC 0.0 0.0 Absolute nRBC <0.01 k/uL <0.01 <0.01 <0.01 <0.01 DTYPE Auto Auto Protein, Total 6.3 - 8.0 g/dL 7.7 8.1 (H) 6.7 Albumin 3.9 - 4.9 g/dL 4.1 4.4 4.5 Calcium 8.5 - 10.2 mg/dL 9.3 8.4 (L) 10.1 9.1 9.1 Bilirubin, Total 0.2 - 1.3 mg/dL 0.2 <0.2 (L) 0.2 Alkaline Phosphatase 34 - 123 U/L 140 (H) 138 (H) 92 AST 13 - 35 U/L 18 24 24 ALT 7 - 38 U/L 14 22 21 Glucose 74 - 99 mg/dL 91 102 (H) 84 91 118 (H) BUN 7 - 21 mg/dL 8 11 12 8 12 Creatinine 0.58 - 0.96 mg/dL 0.54 (L) 0.57 (L) 0.57 (L) 0.52 (L) 0.50 (L) Sodium 136 - 144 mmol/L 138 140 140 141 141 Potassium 3.7 - 5.1 mmol/L 3.9 4.1 5.2 (H) 3.7 4.1 Chloride 97 - 105 mmol/L 101 108 (H) 103 103 106 (H) CO2 22 - 30 mmol/L 25 28 27 26 26 Anion Gap 9 - 18 mmol/L 12 4 (L) 10 12 9 eGFR >=60 mL/min/1.73m 106 105 105 107 108 Total Cholesterol, Nonfasting <200 mg/dL 221 (H) Triglycerides, Nonfasting <150 mg/dL 113 HDL Cholesterol, Nonfasting >39 mg/dL 75 LDL Cholesterol, Nonfasting <100 mg/dL 123 (H) Non HDL Cholesterol, Nonfasting <130 mg/dL 146 (H) VLDL Cholesterol, Nonfasting <30 mg/dL 23 Total Chol/HDL Ratio, Nonfasting <5.10 mg/dL 2.95 LDL/HDL Ratio, Nonfasting <2.54 mg/dL 1.64 Iron 41 - 186 ug/dL 15 (L) 89 TIBC 232 - 386 ug/dL 230 (L) 240 Transferrin Saturation 15.0 - 57.0 % 6.5 (L) 37.1 TSH 0.270 - 4.200 mIU/L 1.220 Free T4 0.9 - 1.7 ng/dL 0.9 Free T3 2.3 - 4.1 pg/mL 3.5 Ferritin 14.7 - 205.1 ng/mL 234.0 (H) 555.0 (H) WSR 0 - 20 mm/hr 65 (H) CRP <0.9 mg/dL 2.7 (H) Assessment and Plan Encounter Diagnosis ICD-10-CM 1. Routine medical exam Z00.00 thyroid, pork, (ARMOUR THYROID) 60 mg tablet CBC + DIFF COMP METABOLIC PANEL VITAMIN D 25 HYDROXY SED RATE [place]STERGR[place] C-REACTIVE PROTEIN (CRP) TSH BLD T3 FREE BLD T4 FREE/FREE THYROX MAGNESIUM BLD 2. Breast cancer screening by mammogram Z12.31 SERGO SCREENING 3. Gastroesophageal reflux disease without esophagitis K21.9 4. Acquired hypothyroidism E03.9 thyroid, pork, (ARMOUR THYROID) 60 mg tablet 5. Anemia, unspecified type D64.9 CBC + DIFF 6. Rheumatoid arthritis of multiple sites without organ or system involvement with positive rheumatoid factor (HCC) M05.79 SED RATE WESTERGREN C-REACTIVE PROTEIN (CRP) 7. Elevated ferritin R79.89 FERRITIN BLD 8. Iron deficiency anemia, unspecified iron deficiency anemia type D50.9 CBC + DIFF FERRITIN BLD 9. Vitamin D deficiency E55.9 VITAMIN D 25 HYDROXY 10. Encounter for long-term current use of medication Z79.899 IRON + TIBC FOLATE SERUM Patient here for yearly exam and follow up. Above issues addressed with patient. Patient involved in shared decision making for management of medical issues. History and medications reviewed. Epic updated as needed Refills taken care of and meds adjusted as indicated after reviewed history, exam and labs. Health Maintenance reviewed. Updated record and/or ordered tests as recorded. Encouraged on efforts at healthy diet and regular exercise and adequate sleep. Timbo Bright MD documented in this encounter [facility] 02-26-2023 Instructions Timbo Bright MD - 02/26/2023 5:33 PM EDT Avoid cold water. This might contribute to reflux. documented in this encounter [facility] 02-19-2023 History of Presen t illness Narrative This was a telephone visit 5 minutes duration She is 3-month status post left total knee replacement. She is doing well. She states he is very happy with her progress. Of note she underwent right hip replacement in May and is doing well from that. She recently had a rheumatoid flare but that is settled down. She states that she took sugar out of her diet and has noticed a huge difference. She should continue low impact exercising. She can participate activities as tolerated. She will follow-up with us in 1 year. documented in this encounter [facility] 02-03-2023 Miscellaneous Notes Patient has been identified by name and date of : Yes, Patient phones for refill(s): Requested Prescriptions Pending Prescriptions Disp Refills omeprazole (PRILOSEC) 20 mg capsule 90 capsule 1 Sig: Take 1 capsule by mouth once daily. Date of last office visit in primary care: 12/24/2022 Physical: 02/26/2023 Last 2 Encounter Wt Readings: Date: Wt: 12/24/2022 66.7 kg (147 lb) 11/06/2022 67.2 kg (148 lb 1.6 oz) Previous labs/tests for medication: Not applicable Please advise. Thank you. Zaira Smith LPN Patient states that the pharmacy is saying that an insurance override is called for in order for patient to continue to get this medication. Please advise. Patient has been identified by name and date of : Yes Requested Prescriptions Pending Prescriptions Disp Refills omeprazole (PRILOSEC) 20 mg capsule 90 capsule 1 Sig: Take 1 capsule by mouth once daily. RX INSTRUCTIONS: Patient aware RX will be sent to pharmacy. No need to notify patient. Peace Rodriguez Pss documented in this encounter [facility] 02-03-2023 Miscellaneous Notes There are orders placed since 10/2022. Patient aware and given the number to call and scheduled. Patient calling to request an order for colonoscopy. Please advise. Patient is requesting a return call from our office. Patient also asking if colonoscopies are only done on and Friday. documented in this encounter [facility] 01-28-2023 History of Presen t illness Narrative Episode Visit Count: 11 Therapist That Will Accept/Oversee The Plan Of Care: Heena Dumont PT Start of Care Date: 12/12/22 Onset Date: 11/18/22 Plan of Care Certification Date: 04/10/20 Next Certification Due Date: 05/10/20 REHABILITATION AND SPORTS THERAPY PHYSICAL THERAPY TREATMENT NOTE ASSESSMENT: Aury Metz tolerated the session with fatigue, decreased symptoms, and no issues. She demonstrated improvements in knee range of motion and tolerance for walking and quad strengthening. The patient will continue to benefit from ongoing skilled physical therapy to progress toward set goals. PLAN FOR NEXT VISIT: Continue manual as needed, progress strengthening per tolerance SUBJECTIVE: Patient Reason for Visit: Pt did a lot of walking at main campus the other day and is feeling tight, but not painful. Encouraged bc she feels like she is improving again, and coming out of her previous plateau Pain: Pain Pain Level: 4 Pain Location: Knee - Left Description: Aching Frequency: Continuous OBJECTIVE MEASURES WITH LEVEL OF FUNCTION: LE AROM L Knee Extension: 0 Degrees L Knee Flexion: 127 Degrees TREATMENT: Therapeutic Exercise: 1: SciFit seat 11 x5 min 2: heel slide x10 3: Quad sets without bolster 2x15 4: SLR 2x10 Skilled Intervention: Patient was educated in proper exercise technique and purpose for exercises. Skilled judgment was provided in selection of appropriate interventions. Provided written instruction for home exercise program to facilitate proper performance and compliance. Correct performance of therapeutic exercises was facilitated with verbal, visual, and tactile cuing. Manual Therapy: 1: STM and CFM with foam roller and lacrosse ball with push to tolerance to L quads 2: Active TrPr with tennis ball x10 reps Skilled Intervention: Manual skills to improve joint mobility, ROM, and decrease pain. Utilized anatomy knowledge of the therapist, and assessment of patient's response to intervention. Billing Therapeutic Exercise Treatment Minutes: 14 Manual TherapyTreatment Minutes: 30 Total Treatment Time Minutes (timed/untimed): 44 Keshawn Davidson PT documented in this encounter [facility] 01-22-2023 History of Presen t illness Narrative Episode Visit Count: 10 Therapist That Will Accept/Oversee The Plan Of Care: Heena Dumont PT Start of Care Date: 12/12/22 Onset Date: 11/18/22 Plan of Care Certification Date: 04/10/20 Next Certification Due Date: 05/10/20 REHABILITATION AND SPORTS THERAPY PHYSICAL THERAPY TREATMENT NOTE ASSESSMENT: Aury Metz tolerated the session with decreased symptoms. She demonstrated improvements in quad pain with manual techniques done today. The patient will continue to benefit from ongoing skilled physical therapy to progress toward set goals and to continue with post-operative protocol. PLAN FOR NEXT VISIT: Manual as needed, progress exercises per tolerance SUBJECTIVE: Patient Reason for Visit: Pt transferring care to [place] from [facility] due to her nursing home. TKA going well, also had R hip done in last 6 months as well Pain: Pain Pain Level: 3 Pain Location: Knee - Left Description: Aching Frequency: Continuous OBJECTIVE MEASURES WITH LEVEL OF FUNCTION: LE AROM L Knee Extension: 0 Degrees TREATMENT: Therapeutic Exercise: 1: SciFit seat 11 x5 min 2: heel slide [id number] 3: Quad sets without bolster 2x15 4: SLR 2x10 Skilled Intervention: Patient was educated in proper exercise technique and purpose for exercises. Skilled judgment was provided in selection of appropriate interventions. Provided written instruction for home exercise program to facilitate proper performance and compliance. Correct performance of therapeutic exercises was facilitated with verbal, visual, and tactile cuing. Manual Therapy: 1: STM and CFM with foam roller and lacrosse ball with push to tolerance to L quads 2: Active TrPr with tennis ball x10 reps Skilled Intervention: Manual skills to improve joint mobility, ROM, and decrease pain. Utilized anatomy knowledge of the therapist, and assessment of patient's response to intervention. Billing Therapeutic Exercise Treatment Minutes: 13 Manual TherapyTreatment Minutes: 28 Total Treatment Time Minutes (timed/untimed): 41 Keshawn Davidson PT documented in this encounter [facility] 01-13-2023 History of Presen t illness Narrative Episode Visit Count: 9 Therapist That Will Accept/Oversee The Plan Of Care: Heena Dumont PT Start of Care Date: 12/12/22 Onset Date: 11/18/22 Plan of Care Certification Date: 04/10/20 Next Certification Due Date: 05/10/20 Patient Identified by Name and Date of : Yes REHABILITATION AND SPORTS THERAPY PHYSICAL THERAPY TREATMENT NOTE ASSESSMENT: Aury Metz tolerated the session with decreased pain / swelling and improved gait pattern. She demonstrated improvements in overall function since last seen with decreased pain . The patient will continue to benefit from ongoing skilled physical therapy to progress toward set goals. PLAN FOR NEXT VISIT: conitnue to monitor pain and soreness in quad area . STM as needed. Gait training to minimize deviations SUBJECTIVE: Patient Reason for Visit: Pt notes that she has now moved up to her full strength of RA meds, Feels that her knee is doing better today. Pain: Pain Pain Level: (not quantified) Pain Location: Knee - Left Frequency: Continuous Post Treatment Pain Post Treatment Pain Level: No Change Post Treatment Pain Location: Knee - Left OBJECTIVE MEASURES WITH LEVEL OF FUNCTION: LE AROM L Knee Extension: 0 Degrees (began at -3 prior to stretching) L Knee Flexion: 125 Degrees Gait Gait Deviations Left Lower Extremity: (decreased stance and push off ,) TREATMENT: Therapeutic Exercise: 1: scifit stepper seat 8 for6 min, discussed current sx, worked on tissue mobility 2: heel slide [id number] 3: Quad sets without bolster 2x15 4: SAQ 1# 2x15 5: seated hamstring stretch 30 sec x3 6: strap assisted gastroc stretch with strap and leg on table 30 sec x3 7: blue rep band TKE 2x10 8: blue rep band hamstring curls seated 2x10 Skilled Intervention: Skilled judgment was provided in selection of appropriate interventions. Correct performance of therapeutic exercises was facilitated with verbal and visual cuing. Gait Trainin: in parallel bars forward and backward steps with cues for heel stike and push off with improvements noted Skilled Intervention: Facilitated proper gait cycle with the use of verbal and visual cues for correction of gait deviations t Billing Therapeutic Exercise Treatment Minutes: 30 Manual TherapyTreatment Minutes: 8 Total Treatment Time Minutes (timed/untimed): 38 Heena Dumont PT documented in this encounter [facility] 01-09-2023 History of Presen t illness Narrative Episode Visit Count: 8 Therapist That Will Accept/Oversee The Plan Of Care: Heena Dumont PT Start of Care Date: 12/12/22 Onset Date: 11/18/22 Plan of Care Certification Date: 04/10/20 Next Certification Due Date: 05/10/20 Patient Identified by Name and Date of : Yes REHABILITATION AND SPORTS THERAPY PHYSICAL THERAPY PROGRESS REPORT PLAN OF CARE UPDATE: Assessment: Aury Metz demonstrates moderate improvement in ROM strength, walking, and physical activities. She has progressed toward goals. Patient continues to present with impairments in ADL's, gait, overall function, symptom management, and tissue tenderness that interfere with . Current prognosis is Good due to: current objective clinical presentation Fair due to: clinical presentation . She will benefit from continued skilled therapy services to meet the updated goals for this plan of care as noted below. Goals for Episode of Care: created on 12/12/22 through 01/16/23 updated 01/09/23 [place] in home exercise program./ achieved Patient will decrease pain to 2-3/10 with functional activities to allow patient to improve ambulation and standing tolerance for ADLs./ not achieved Patient will increase active ROM of left knee to 0-120 degrees to allow pt to to improve performance of ADLs and to improve gait mechanics / gait pattern ./ partially achieved Patient will demonstrate increase in left LE strength to 4+/5 during manual muscle testing in order to improve function for prior functional tasks./ partially achieved Patient will Improve Timed Up and Go to 10 seconds to demonstrate decreased risk of falling./ progressing Normal gait./ progressing Reciprocal stair negotiation./ progressing Patient Goals: return to full function Planned Interventions, Frequency, and Duration: 1x/week, 4 weeks Total Number of Visits Planned: 44 Patient to be seen for Therapeutic exercise (16317), Neuromuscular re-education (36187), Manual therapy (83141), Self-senior care management (87823), Patient/Family/Caregiver Education PLAN FOR NEXT VISIT: will work more on gait pattern and extension SUBJECTIVE: Patient Reason for Visit: Pt reports that she is still having alot of pain , reports that she feels her RA flare is improving but notes that knee pain persists and has been taking pain medication . Has been trying to walk more normally and coming able to go up stairs reciprocal but has not tried going down stairs , uncertain if it stron enough. Pain: Pain Pain Level: 8 Pain Location: Knee - Left Frequency: Continuous Post Treatment Pain Post Treatment Pain Level: Worse Post Treatment Pain Location: Knee - Left PROMIS Scales Higher is Better 01/06/2023 12/10/2022 11/07/2022 Phys Func - Score 35 (moderate dysfunction) 33 (moderate dysfunction) 36 (moderate dysfunction) Phys Func - Percentile 7 % 4 % 8 % Self-Eff Symptom - Score 41 (Average) 42 (Average) - Self-Eff Symptom - Percentile 18 % 21 % - T-scores: mean of general population = 50. 5 points is clinically meaningfully difference Percentiles provide an indication of how the patient's score ranks in relation to the general population. Higher percentile rankings indicate better function/quality of life. 50th percentile is the average of the general population and indicates half of respondents had a worse score. OBJECTIVE MEASURES WITH LEVEL OF FUNCTION: Knee Observations L Knee Palpation Tenderness: Quadriceps LE AROM L Knee Extension: -5 Degrees L Knee Flexion: 124 Degrees LE Strength R Knee Extension (L3): 4/5 (with pain) R Knee Flexion: 4+/5 Functional Strength Functional Strength: pt able to ascend and descend stairs with good control but increased pain reported Gait Weight Bearing Status: FWB Gait Device: None Gait Deviations: Left Lower Extremity Gait Deviations Left Lower Extremity: Heel strike during initial stance decreased, Push off during terminal stance decreased, Stance time decreased Stairs: Independent Stairs: use of B rails, good form but painful Functional Performance Test Results Timed Up and Go (sec): 12 sec TREATMENT: Therapeutic Exercise: 1: scifit stepper seat 8 for6 min 2: heel slide [id number] 3: Quad sets without bolster 2x15 4: SAQ 1# 2x15 5: seated hamstring stretch 30 sec x3 6: strap assisted gastroc stretch with strap and leg on table 30 sec x3 Skilled Intervention: Skilled judgment was provided in selection of appropriate interventions. Correct performance of therapeutic exercises was facilitated with verbal and visual cuing. Billing Therapeutic Exercise Treatment Minutes: 38 Total Treatment Time Minutes (timed/untimed): 38 Heena Dumont PT documented in this encounter [facility] 01-02-2023 History of Presen t illness Narrative Episode Visit Count: 6 Therapist That Will Accept/Oversee The Plan Of Care: Heena Dumont PT Start of Care Date: 12/12/22 Onset Date: 11/18/22 Plan of Care Certification Date: 04/10/20 Next Certification Due Date: 05/10/20 Patient Identified by Name and Date of : Yes REHABILITATION AND SPORTS THERAPY PHYSICAL THERAPY TREATMENT NOTE ASSESSMENT: Aury Metz tolerated the session with fatigue and expected muscle soreness. She demonstrated difficulty with knee extension due to pain. The patient will continue to benefit from ongoing skilled physical therapy to progress toward set goals. PLAN FOR NEXT VISIT: Continue advancing strenghtening as tolerated. SUBJECTIVE: Patient Reason for Visit: Pt reports that she has been having an awful time with left lateral knee pain since last visit and flare up of RA. Pt reports that she is now taking more pain medicaiton, which is not what she would like to do. Pt only able to get about 20 minutes of sleep at a time and is up most of the night walking. Pt reprts that laying with her knee straight or on her R side makes the pain really intense. Pt states pain was 8-9/10 prior to taking pain medication this morning. Pt stated a knot feeling in left lateral knee nad quads. Pain: Pain Pain Level: 6 Pain Location: Knee - Left Frequency: Continuous Post Treatment Pain Post Treatment Pain Level: No Change OBJECTIVE MEASURES WITH LEVEL OF FUNCTION: LE AROM L Knee Extension: 0 Degrees L Knee Flexion: 120 Degrees TREATMENT: Therapeutic Exercise: 1: scifit stepper seat 8 for6 min (subjective collected) 2: supine heel [id number] strap assist. (Painful and crepitus on lateral left knee when returning knee into extension) 3: Quad sets without bolster 2x10 4: SAQ 2x15 5: prone quad stretch 3x30 seconds Skilled Intervention: Patient was educated in proper exercise technique and purpose for exercises. Skilled judgment was provided in selection of appropriate interventions. Correct performance of therapeutic exercises was facilitated with verbal and visual cuing. Manual Therapy: 1: STM with foam roller to L quad and lateral knee. Skilled Intervention: Manual skills to improve joint mobility, ROM, and decrease pain. Utilized anatomy knowledge of the therapist, and assessment of patient's response to intervention. Billing Therapeutic Exercise Treatment Minutes: 30 Manual TherapyTreatment Minutes: 10 Total Treatment Time Minutes (timed/untimed): 40 Daniela Maravilla PTA/Heena Dumont PT documented in this encounter [facility] 12-26-2022 History of Presen t illness Narrative Episode Visit Count: 5 Therapist That Will Accept/Oversee The Plan Of Care: Heena Dumont PT Start of Care Date: 12/12/22 Onset Date: 11/18/22 Plan of Care Certification Date: 04/10/20 Next Certification Due Date: 05/10/20 Patient Identified by Name and Date of : Yes REHABILITATION AND SPORTS THERAPY PHYSICAL THERAPY TREATMENT NOTE ASSESSMENT: Aury Metz tolerated the session with expected muscle soreness. She demonstrated improvements in ROM and strength for step ups . The patient will continue to benefit from ongoing skilled physical therapy to progress toward set goals. PLAN FOR NEXT VISIT: Will advance strengthening .Add weight to SAQ SUBJECTIVE: Patient Reason for Visit: Pt notes that last night and today her knee is better . Pain: Pain Pain Level: 5 Pain Location: Knee - Left Description: Aching Frequency: Continuous Post Treatment Pain Post Treatment Pain Level: No Change OBJECTIVE MEASURES WITH LEVEL OF FUNCTION: LE AROM L Knee Extension: 0 Degrees L Knee Flexion: 120 Degrees (with strap assist) Pt continues to have decreased knee flexion with gait TREATMENT: Therapeutic Exercise: 1: scifit stepper seat 8 for6 min for knee ROM cues to improve, . 2: quad sets 2x15 with 1/2 bolster under ankle 3: SAQ 2x15 with less quad lag 4: supine heel [id number] strap assist. 5: prone quad stretch painful today so did not perform after 2 attempts 6: blue rep band hamstring curls seated 2x15 7: blue rep band TKE 2x15 8: blue step ups with cues for knee flexion 1x10 , 1x5 with B hand assist 9: long sitting hamstring stretch with forearm overpressure to thigh for extension 30 sec x3 10: strap gastroc stretch with leg on table 30 sec x3 Skilled Intervention: Skilled judgment was provided in selection of appropriate interventions. Correct performance of therapeutic exercises was facilitated with verbal and visual cuing. Billing Therapeutic Exercise Treatment Minutes: 40 Total Treatment Time Minutes (timed/untimed): 40 Heena Dumont PT documented in this encounter [facility] 12-24-2022 History of Presen t illness Narrative Episode Visit Count: 4 Therapist That Will Accept/Oversee The Plan Of Care: Heena Dumont PT Start of Care Date: 12/12/22 Onset Date: 11/18/22 Plan of Care Certification Date: 04/10/20 Next Certification Due Date: 05/10/20 Patient Identified by Name and Date of : Yes REHABILITATION AND SPORTS THERAPY PHYSICAL THERAPY TREATMENT NOTE ASSESSMENT: Aury Metz tolerated the session with no issues. She demonstrated improvements in knee flexion ROM but still ambulates with no knee flexion d/t reports of lateral quad pain Quad pain slightly better with stretching . The patient will continue to benefit from ongoing skilled physical therapy to progress toward set goals. PLAN FOR NEXT VISIT: Trial of blue step ups SUBJECTIVE: Patient Reason for Visit: Pt reports that she has started back on Methotrexate for her RA. Takes 3 weeks to increase to her prior level Pain: Pain Pain Level: 6 Pain Location: Knee - Left Description: Aching Frequency: Continuous Post Treatment Pain Post Treatment Pain Level: No Change OBJECTIVE MEASURES WITH LEVEL OF FUNCTION: LE AROM L Knee Extension: 0 Degrees L Knee Flexion: 117 Degrees TREATMENT: Therapeutic Exercise: 1: scifit stepper seat 10 for6 min for knee ROM cues to improve, . 2: quad sets 2x15 with 1/2 bolster under ankle 3: SAQ 2x15 with less quad lag 4: supine heel [id number] strap assist. 5: prone quad stretch 30 sec x3 with strap 6: blue rep band hamstring curls seated 2x15 7: blue rep band TKE 2x15 8: green step ups with cues for knee flexion 2x10 9: long sitting hamstring stretch with forearm overpressure to thigh for extension 30 sec x3 10: strap gastroc stretch with leg on table 30 sec x3 Skilled Intervention: Patient was educated in proper exercise technique and purpose for exercises. Reviewed and educated patient on additions/changes for home exercise program . Skilled judgment was provided in selection of appropriate interventions. Correct performance of therapeutic exercises was facilitated with verbal and visual cuing. Patient education as noted. Home Exercise Program Assigned: 1: add prone quad stretch Billing Therapeutic Exercise Treatment Minutes: 40 Total Treatment Time Minutes (timed/untimed): 40 Heena Dumont PT documented in this encounter [facility] 12-24-2022 History of Presen t illness Narrative Images from the original note were not included. SUBJECTIVE Aury Metz is a 57 year old female here today for a derm procedure. Chief Complaint Patient presents with: Derm Problem: mole removal on left upper chest HPI Aury Metz is a 57 year old female established patient of Dr. Bright who presents today for concerns of a mole. Some pain with this, catches on clothing, also has had color change. Has had this for some time but concerned about changes and associated pain. Family history significant for skin cancer. Risk factors of sun exposure. No allergies to numbing agents. Agreeable to shave biopsy today. Discussed pros and cons, risks and benefits. Consent obtained. Her medications were reviewed today and her list is now up to date. Medications Current Outpatient Medications Medication Sig HYDROcodone-acetaminophen (NORCO) 5-325 mg per tablet Take 1-2 tablets by mouth every 6 hours as needed for pain. celecoxib (CELEBREX) 100 mg capsule TAKE 1 CAPSULE BY MOUTH TWICE A DAY [facility] USE 1 DEVICE ONLY ONCE FOR 1 DOSE hyoscyamine sublingual (LEVSIN/SL) 0.125 mg Dissolve 1 tablet under the tongue every 4 hours as needed (for abdominal pain). ondansetron (ZOFRAN) 4 mg tablet Take 1 tablet by mouth once daily as needed for nausea/vomiting (for nausea.). albuterol HFA (PROVENTIL HFA, VENTOLIN HFA) 90 mcg/actuation inhaler Inhale 2 Puffs as instructed every 4 hours as needed for wheezing/shortness of breath. thyroid, pork, (ARMOUR THYROID) 60 mg tablet Take 1 tablet by mouth once daily. omeprazole (PRILOSEC) 20 mg capsule Take 1 capsule by mouth once daily. methotrexate sodium 25 mg/mL soln Inject 0.6 mL subcutaneously one time a week. folic acid 1 mg tablet Take 1 tablet by mouth once daily. Cetirizine (ZYRTEC) 10 mg cap Take 1 capsule by mouth once daily as needed (allergies). Insulin Syringe-Needle U-100 1 mL 27 gauge x 1/2 syrg 1 Each one time a week. To be used for methotrexate injection ondansetron orally disintegrating (ZOFRAN ODT) 4 mg disintegrating tablet Take 1 tablet by mouth every 8 hours as needed for nausea/vomiting for up to 12 doses. aspirin, enteric coated (ECOTRIN LOW STRENGTH) 81 mg EC tablet Take 1 tablet by mouth twice daily. KEVZARA 200 mg/1.14 mL pnij (Patient not taking: Reported on 12/24/2022) CPAP Pt with known NIKO confirmed by [facility]. AHI normalized with PAP. Has PAP device (Airsense 10 ([id number])). However, not receiving masks through current DME. Requests change. NIKO sx resolved with PAP. Please fit with Dreamwear under nose FFM (not pillows). Needs supplies. Lifetime supplies. Please provide us download in 4 weeks. No current facility-administered medications for this visit. ALLERGIES Allergen Reactions Cephalexin Anaphylaxis, Other: See Comments Throat swelling. Has tolerated augmentin 850mg as op after this episode Aciphex [Rabeprazol* Other: See Comments Chest pain Bactrim [Sulfametho* Vomiting Carafate [Sucralfat* Vomiting Darvocet-N 100 [Pro* Other: See Comments dizzy severe pain in head Erythromycin Vomiting Gluten Intolerance Iodinated Contrast * Shortness of Breath Vancomycin Itching Scalp itchy ACTIVE PROBLEM LIST Primary Osteoarthritis of Left Knee - 11/18/2022 S/P Total Knee Arthroplasty, Left - 11/18/2022 Reaction to Contrast Media - 08/13/2022 Status Post Total Replacement of Right Hip - 06/18/2022 Mindy (Iron Deficiency Anemia) - 06/06/2022 Primary Osteoarthritis of Right Hip - 05/31/2022 Raynaud Phenomenon - 09/06/2021 Calcific Tendinitis of Right Shoulder - 09/06/2021 Cervical Radiculopathy - 09/06/2021 Disorder of Acromioclavicular Joint - 09/06/2021 Personal History of Rheumatoid Arthritis - 09/06/2021 History of Hypothyroidism - 09/06/2021 Fibromyalgia - 09/06/2021 Esophageal Web - 09/06/2021 Status Post Knee Replacement - 07/02/2021 Exercise-Induced Asthma - 06/25/2021 Awareness of Heartbeats - 12/20/2020 Right Lumbar Radiculitis - 11/23/2020 Lumbar Spondylosis - 11/23/2020 Chronic Right-Sided Low Back Pain With Right-Sided Sciatica - 11/23/2020 Rheumatoid Arthritis Involving Both Knees With Positive Rheumatoid Factor (Hcc) - 11/23/2020 Acute Pain of Both Knees - 04/10/2020 Knee Joint Stiffness, Bilateral - 04/10/2020 Difficulty Walking - 04/10/2020 Hip Stiffness, Unspecified Laterality - 04/10/2020 Moderate Obstructive Sleep Apnea - 01/19/2019 Comment: [employer]: [employer] [phone] Hypothyroidism - 07/15/2017 Drug Allergy - 10/25/2016 Allergy to Sulfa Drugs - 10/25/2016 Rash and Nonspecific Skin Eruption - 10/25/2016 Rheumatoid Arthritis of Multiple Sites Without Organ Or System Involvement With Positive Rheumatoid Factor (Hcc) - 09/11/2016 Emotional Lability - 01/01/2013 Comment: Perimenopausal symptoms Anemia - 01/04/2010 Gastroesophageal Reflux Disease - 10/27/2006 Social History Tobacco Use Smoking status: Never Smokeless tobacco: Never Vaping Use Vaping Use: Never used Substance Use Topics Alcohol use: No Drug use: No Review of Systems Skin: Positive for color change. OBJECTIVE BP 106/64 Pulse 85 Wt 147 lb (66.7kg) SpO2 98% LMP 06/15/2015 Physical Exam Vitals and nursing note reviewed. Constitutional: General: She is not in acute distress. Appearance: She is not ill-appearing, toxic-appearing or diaphoretic. Pulmonary: Effort: Pulmonary effort is normal. No respiratory distress. Skin: General: Skin is warm and dry. Capillary Refill: Capillary refill takes less than 2 seconds. Neurological: General: No focal deficit present. Mental Status: She is alert and oriented to person, place, and time. Mental status is at baseline. Psychiatric: Mood and Affect: Mood normal. Thought Content: Thought content normal. Judgment: Judgment normal. UNIVERSAL PROTOCOL / SAFETY CHECKLIST Procedure to be Performed: shave biopsy Sign In: A Moment of CARE was completed. Personnel directly involved with the procedure wore the appropriate PPE (Personal Protective Equipment). Patient/Surrogate Stated/Verified: PATIENT VERIFIED(optional for EMERGENT procedures): Patient name, Date of , Relevant allergies, and The intended procedure Time Out Communication: Intended patient and procedure match the source documents. Consent documented and matches the intended procedure. Correct side/site marked and visible. Medications required for procedure verified. No fire risk assessment and interventions applicable. No implant(s) inserted. Sign Out: SIGN OUT (optional for EMERGENT procedures): All specimen containers correctly labeled. All instruments, equipment, possible retained foreign bodies accounted for. Post-procedure follow-up management communicated and Plan of Care Visit completed when applicable. Aury Metz is a 57 year old female here today because of concern over skin lesion(s). Lesion about 0.3 cm in diameter to left lower neck/upper chest area. PROCEDURE -SHAVE BIOPSY: Indication: Skin lesion of unknown behavior - diameter measured 0.3 cm Anesthesia: Locally injected 0.5mL of 1% lidocaine WITHOUT epinephrine I cleaned the skin with alcohol swab(s). I then shaved off the skin lesion using a dermablade Hemostasis was obtained by using silver sticks and pressure. Antibiotic ointment was applied and then dressed with a bandaid. Pt tolerated well. No complications. Specimen(s) sent to pathology for analysis. Post op care: Apply topical antibiotic ointment twice a day with a bandaid applied. When healing well, may leave open to the air. Goldie Villafuerte APRN.LINOTYPE MACHINIST APPRENTICE ASSESSMENT/PLAN: 1. 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 - ICD9: 709.9, ICD10: L81.9 (primary diagnosis) Lesion removed, tolerated well, see procedure note. - REM LESION TRUNK,ARM, LEG <0.5 CM - LIDOCAINE (PF) 10 MG/ML (1 %) INJECTION SOLUTION - SURGICAL PATHOLOGY 2. Skin lesion - ICD9: 709.9, ICD10: L98.9 - REM LESION TRUNK,ARM, LEG <0.5 CM - LIDOCAINE (PF) 10 MG/ML (1 %) INJECTION SOLUTION - SURGICAL PATHOLOGY 3. Painful skin lesion - ICD9: 709.9, ICD10: L98.9 - REM LESION TRUNK,ARM, LEG <0.5 CM - LIDOCAINE (PF) 10 MG/ML (1 %) INJECTION SOLUTION - SURGICAL PATHOLOGY 4. Abnormal skin growth - ICD9: 239.2, ICD10: D49.2 - REM LESION TRUNK,ARM, LEG <0.5 CM - LIDOCAINE (PF) 10 MG/ML (1 %) INJECTION SOLUTION - SURGICAL PATHOLOGY Goldie Villafuerte APRN.CNP Portions of this note have been entered by ancillary staff. I have reviewed and when necessary edited, so that they are an adequate record of my encounter with this patient Please note that parts of this document were created using voice recognition software and therefore may contain grammatical errors. Patient verbalizes understanding of instructions from today's visit and in agreement with treatment plan. Questions answered. Agrees to call the office if questions, concerns of issues with acute symptoms not improving or if they worsen. See diagnoses and orders for additional plan(s). Allergies and medications were reviewed, list was updated, and refills given if needed. Past medical, surgical, social, and family history reviewed and updated as appropriate. Encouraged proper diet & exercise as well as compliance with taking medications. Age-appropriate health preventative measures were discussed. documented in this encounter [facility] 12-20-2022 Miscellaneous Notes Patient returned my call. States she has no signs or symptoms of infection. Per Peace MELLO, let patient know that she can restart her methotrexate Jonas Mckeon RN . Called and left voicemail with call back number. Jonas Mckeon RN Patient is 5 weeks post op TKA. Last note by ortho indicates that over virtual, patient reported Incision is well healed with no erythema, drainage, induration. Okay to restart medication as long as patient has no signs of infection, I.e. fevers, chills, warmth/tenderness of surgical site, or purulence from surgical site. Peace Hunt PA-C Orthopaedic [facility] Rheumat[facility] Date: December 20, 2022 Time: 2:37 PM Pt called asking if it now okay to start her methotrexate again since her surgery 11/11. [phone] (home) documented in this encounter [facility] 12-17-2022 History of Presen t illness Narrative Episode Visit Count: 2 Therapist That Will Accept/Oversee The Plan Of Care: Heena Dumont PT Start of Care Date: 12/12/22 Onset Date: 11/18/22 Plan of Care Certification Date: 04/10/20 Next Certification Due Date: 05/10/20 Patient Identified by Name and Date of : Yes REHABILITATION AND SPORTS THERAPY PHYSICAL THERAPY TREATMENT NOTE ASSESSMENT: Aury Metz tolerated the session with expected muscle soreness. She demonstrated improvements in knee flexion ROM and sit to stand by end of session . The patient will continue to benefit from ongoing skilled physical therapy to progress toward set goals. PLAN FOR NEXT VISIT: progress reps of exs SUBJECTIVE: Patient Reason for Visit: Pt reports that she is still not sleeping at nights. Reports spasms in legs. Wonders about restarting RA medicine. Advised to discuss [facility] physician. Pain with ambulation and doews not flex knee Pain: Pain Pain Level: 6 Pain Location: Knee - Left Description: Aching Frequency: Continuous OBJECTIVE MEASURES WITH LEVEL OF FUNCTION: LE AROM L Knee Extension: -3 Degrees L Knee Flexion: 105 Degrees TREATMENT: Therapeutic Exercise: 1: scifit stepper seat 12 for 6 min for knee ROM cues to improve 2: quad sets 2x12 with 1/2 bolster under ankle 3: SAQ 2x12 with quad lag 4: supine heel [id number] strap assist. 5: seated flexion stretch x5 6: green rep band hamstring curls seated 2x10 7: green rep band TKE 2x10 8: sit to stand from mat table with cues for equal WB 1x10 mild use of hands 9: long sitting hamstring stretch with forearm overpressure to thigh for extension 30 sec x3 10: strap gastroc stretch with leg on table 30 sec x3 Skilled Intervention: Patient was educated in proper exercise technique and purpose for exercises. Reviewed and educated patient on additions/changes for home exercise program . Skilled judgment was provided in selection of appropriate interventions. Provided written instruction for home exercise program to facilitate proper performance and compliance. Correct performance of therapeutic exercises was facilitated with verbal and visual cuing. Patient education as noted. Home Exercise Program Assigned: 1: TKE, hamstring curls , hamstring and gastroc stretch Billing Therapeutic Exercise Treatment Minutes: 45 Total Treatment Time Minutes (timed/untimed): 43 Heena Dumont PT documented in this encounter [facility] 12-16-2022 Miscellaneous Notes See My Chart message 12/13/22. Pt called and is notified of providers message and instructions. Pt voices understanding. Pt states she will try and upload a picture of it, and would like for provider to talk with Goldie Villafuerte CASTING TRUCKER about if she would be willing to do the procedure for her. Joanne Snyder, GOKUL Goldie Villafuerte (one of my two nurse practioners) does do some dermatology procedures, so can check when she is back next week whether this is something she can take care of for her. Can patient upload a picture into [employer]? Other option is referral to general surgeon or dermatology as noted below. It tatiana be up to the provider whether they would remove at the appointment. Patient calls to report mole to base of neck. Nurse triage completed. Protocol recommends see provider within 2 weeks. Prior to scheduling appointment patient wants to verify that skin growth would be removed same day or does provider recommend consult to dermatology. She also reports that she has had left knee surgery in the past few weeks and would need to be prescribed an antibiotic prior to procedure. Patient requesting to schedule with Dr. Bright. Not scheduled at this time until provider reviews as not certain of answer to request or appt availability. Reason for Disposition [1] Skin growth or mole AND [2] changes color, or has more than one color Answer Assessment - Initial Assessment Questions 1. APPEARANCE of LESION: Small raised area to base of neck that is dark in color and at times looks blue. 2. SIZE: 1/2 the size of patient's pinky nail. 3. COLOR: Dark brownish sometimes looks blue 4. SHAPE: Round 5. RAISED: Raised 6. TENDER: Moderate pain with touch 7. LOCATION: On Neck where seat belt crosses. 8. ONSET: A couple of months maybe. 9. NUMBER: One. 10. CAUSE: Patient not certain. Had one years ago and had to have it removed but couldn't remember what it was or how long ago it was. Not able to find any notes in chart. 11. OTHER SYMPTOMS: No fever. 12. : No. Protocols used: Skin Lesion - Moles or [id number] documented in this encounter [facility] 12-13-2022 History of Presen t illness Narrative Episode Visit Count: 1 Therapist That Will Accept/Oversee The Plan Of Care: Heena Dumont PT Start of Care Date: 12/12/22 Onset Date: 11/18/22 Plan of Care Certification Date: 04/10/20 Next Certification Due Date: 05/10/20 REHABILITATION AND SPORTS THERAPY PHYSICAL THERAPY EVALUATION PLAN OF CARE: Assessment: Aury Metz presents with diagnosis of s/p left TKA that interferes with standing, walking, walking in the community, stair negotiation, physical activities . She presents with impairments in ADL's, gait, independence in exercise, overall function, range of motion, strength, symptom management, and tissue tenderness. PROMIS (Patient-Reported Outcomes Measurement Information System) scores were reviewed and physical function domain identified as a rehabilitation concern. Prognosis for therapy is Good due to: current objective clinical presentation . She will benefit from skilled therapy services to meet the goals established for this plan of care as noted below. Goals for Episode of Care: created on 12/12/22 through 01/16/23 [place] in home exercise program. Patient will decrease pain to 2-3/10 with functional activities to allow patient to improve ambulation and standing tolerance for ADLs. Patient will increase active ROM of left knee to 0-120 degrees to allow pt to to improve performance of ADLs and to improve gait mechanics / gait pattern . Patient will demonstrate increase in left LE strength to 4+/5 during manual muscle testing in order to improve function for prior functional tasks. Patient will Improve Timed Up and Go to 10 seconds to demonstrate decreased risk of falling. Normal gait. Reciprocal stair negotiation. Patient Goals: return to full function Planned Interventions, Frequency, and Duration: Current Frequency: 2x/week Duration: 4 weeks Total Number of Visits Planned: 8 Planned Treatment Interventions: Therapeutic exercise (90600), Neuromuscular re-education (72621), Manual therapy (95804), Self-senior care management (46705), Gait Training (21249), Patient/Family/Caregiver Education PLAN FOR NEXT VISIT: add rep band TKE and hamstring curls , add hamstring and gastroc stretch with strap Patient demonstrates good understanding of plan of care and treatment. The above goals and plan of care were discussed and agreed upon by patient/family. SUBJECTIVE: Aury Metz is a 57 year old female seen today for Pt notes that she had surgery and stayed overnight in hospital , then had home therapy which ended of this week. Pt notes that she is doing ok. Pt has been using cane since Friday. Reports pain on lateral aspect of knee and lateral quad area when walking. 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[employer]) Home Environment Patient Lives With: Spouse Home Type: Ranch Entry To Home: Stairs, With Rail Number Of Stairs Into Home: 4 Intake Information: Prescription present Previous Treatment: Physical Therapy , Ice , Pain meds (oxycodone as needed not taking very often.) Pain: Pain Pain Level: 6 Pain Location: Knee - Left Description: Aching Frequency: Continuous Additional Pain Information : (wrists, hips everything hurts today from RA) Post Treatment Pain Post Treatment Pain Level: No Change Post Treatment Pain Location: Knee - Left Post Treatment Pain Description: Aching, Sharp PROMIS Scales Higher is Better 12/10/2022 11/07/2022 08/26/2022 Phys Func - Score 33 (moderate dysfunction) 36 (moderate dysfunction) 34 (moderate dysfunction) Phys Func - Percentile 4 % 8 % 5 % Self-Eff Symptom - Score 42 (Average) - - Self-Eff Symptom - Percentile 21 % - - T-scores: mean of general population = 50. 5 points is clinically meaningfully difference Percentiles provide an indication of how the patient's score ranks in relation to the general population. Higher percentile rankings indicate better function/quality of life. 50th percentile is the average of the general population and indicates half of respondents had a worse score. OBJECTIVE MEASURES WITH LEVEL OF FUNCTION: Knee Observations L Knee Presents with: Swelling, Incision L Swelling: generalized into calf region Wearing trang hose L Incision: glue present, no signs of infection L Knee Palpation Tenderness: Quadriceps LE AROM L Knee Extension: -4 Degrees (supine) L Knee Flexion: 90 Degrees (after stretching) LE Strength R Knee Extension (L3): 3-/5 (quad lag 10 degrees with SAQ) R Knee Flexion: 3+/5 Functional Strength Functional Strength: limited tolerance to walking, AROM and stairs Gait Weight Bearing Status: FWB Gait: Supervision Gait Device: Cane Gait Deviations: Left Lower Extremity Functional Performance Test Results Timed Up and Go (sec): 25 sec Education: Education Learning Preferences: Demonstration, Explanation, Performance, Printed Materials Barriers: None Learning/educational needs: Plan of Care Education Provided: Yes, see treatment interventions for education provided Education Provided To: Patient Education Mode/Type: Demonstration, Explanation/Discussion, Literature/Printed Materials, Performance Response to Education/Teach Back: States/Identifies, Return Demonstration TREATMENT: PT Treatment Interventions: Therapeutic Exercise, Gait Training Evaluation Therapeutic Exercise: 1: scifit stepper seat 12 for 5 min for knee ROM cues to improve 2: quad sets 2x10 3: SAQ 2x10 with quad lag 4: supine heel slides 1x10 and 1x10 with strap assist. 5: seated flexion stretch x5 Skilled Intervention: Patient was educated in proper exercise technique and purpose for exercises. Skilled judgment was provided in selection of appropriate interventions. Correct performance of therapeutic exercises was facilitated with verbal and visual cuing. Patient education as noted. Gait Trainin: in parallel bars, cues to increase knee flexion during swing and increased heel strike and push off , Skilled Intervention: Patient was provided stand by assist during pre-gait/gait training to prevent falls and insure safety. Facilitated proper gait cycle with the use of verbal and visual cues for correction of gait deviations identified in the objective section above. Home Exercise Program Assigned: 1: Per home health PT no changes today Billing * Evaluation Low Complexity: 1 Unit Therapeutic Exercise Treatment Minutes: 30 Total Treatment Time Minutes (timed/untimed): 50 Heena Dumont PT documented in this encounter [facility] 12-12-2022 History of Presen t illness Narrative No referring provider defined for this encounter. This was conducted as a post-operative phone visit. Patient is a 57 year old female 4 weeks post-op LTKA. The patient is doing well . Only complaint is some lateral based pain. Otherwise, she is very happy with outcome so far. She states PHYSICAL EXAM: Incision is well healed with no erythema, drainage, induration. ROM: 0-90 Xray- reveals a well fixed total knee arthroplasty without sign of loosening or fracture in acceptable alignment. ASSESSMENT: Patient doing well post-op. PLAN:continue pt Patient will follow up in 3 months Patient knows how to reach us if there are any questions or problems. documented in this encounter [facility] 12-12-2022 History of Presen t illness Narrative Radiology Service Progress Note PATIENT NAME: Aury Metz DATE OF SERVICE: December 12, 2022 TIME: 8:03 AM PATIENT IDENTITY VERIFICATION COMPLETED USING TWO (2) IDENTIFIERS: Name and Date of confirmed by patient verbally. FALL SCREENING: Has the patient had 2 falls in the last year or 1 fall with injury or currently using an Ambulatory Assistive Device (Walker, Cane, Wheelchair, Crutches, etc.)? No PATIENT GENDER DATA: Female. status: : No status: NO. PATIENT RELEVANT IMPLANT DATA REVIEWED: Yes RADIOLOGY DEPARTMENT: General X-ray: Exam(s) Completed: Lower Extremity X-Ray(s): Knee, AP / Lat / Merchant Left and Wt. Bearing PERIPHERAL IV DATA: Not applicable SIGNED BY: RT Steve(R) December 12, 2022 8:03 AM documented in this encounter [facility] 12-10-2022 Miscellaneous Notes SITUATION: only patient present during today's visit. patient reports the following since the last homecare visit: medications/allergies--no changes, no fall. patient reports that she still is having a lot of lateral knee pain . i dont want to bend my knee because that hurts so much BACKGROUND: Diagnoses (reason for Home Care): L TKR Weight Bearing/Precaution Changes: no changes ASSESSMENT: Focus of visit: reassessment /discharge Physical therapy discharged: goals achieved. Functional performance at discharge - bed mobility independent, transfers independent, ambulation independent and stairs independent. Plan of care, goals, and discharge reviewed and agreed upon with patient and/or caregiver. RECOMMENDATION: Patient discharged from home health services. Instructions to include:begin outpatient therapy on 12/12/22 See intervention summary for intervention/education details. documented in this encounter [facility] 12-06-2022 Miscellaneous Notes Patient continues to report of knee pain w/ activity/PT that is local to medial knee. No redness/heat/ excessive swelling ect. Patient has not been taking oxy pain med because she does not like how they make her feel. She is asking if there is anything different she can try for pain. Patient reported she called your office this am and was told someone will call her back later today. Thank you. documented in this encounter [facility] 12-04-2022 Miscellaneous Notes SITUATION: only patient present during today's visit. patient reports the following since the last homecare visit: medications/allergies--no changes, no fall. patient reports she over did it w/ exercises yesterday and did not sleep well last night. Knee is painful and stiff.. BACKGROUND: Diagnoses (reason for Home Care): L TKR Weight Bearing/Precaution Changes: no changes ASSESSMENT: Focus of visit gentle ROM and strength exercises today due to increased swelling and pain. Manual assist w/ SAQ to decrease pain. Patient did report of decreased stiffness after todays visit. Patient instructed in higher elevation w/ ice to decrease swelling. AAROM 0-88 Plan of care, goals, and visit frequency reviewed and agreed upon with patient and/or caregiver. Current Discharge Plan: outpatient rehab Anticipate discharge by 12/12/22 RECOMMENDATION: Next visit to focus on cane training See intervention summary for intervention/education details. documented in this encounter [facility] 12-02-2022 Miscellaneous Notes SITUATION: only patient present during today's visit. patient reports the following since the last homecare visit: medications/allergies--no changes, no fall. patient reports she feels like she is turning the corner and getting better. BACKGROUND: Diagnoses (reason for Home Care): LTKR Weight Bearing/Precaution Changes: no changes ASSESSMENT: Focus of visit performed and progressed ROM and strength exercises for HEP. Gait training w/ rollator and stair training w/ cane and 1 HR. AAROM 0-90 Plan of care, goals, and visit frequency reviewed and agreed upon with patient and/or caregiver. Current Discharge Plan: outpatient rehab Anticipate discharge by 12/10/22 RECOMMENDATION: Next visit to focus on cane training See intervention summary for intervention/education details. documented in this encounter [facility] 11-29-2022 Miscellaneous Notes SITUATION: only patient present during today's visit. patient reports the following since the last homecare visit: medications/allergies--no changes, no fall. patient reports she is hurting today. BACKGROUND: Diagnoses (reason for Home Care): LTKR Weight Bearing/Precaution Changes: no changes ASSESSMENT: Focus of visit rom and strength exercises for HEP. Gait training w/ww and cues for heel to toe pattern AAROM 0-84 Scheduled OP PT Plan of care, goals, and visit frequency reviewed and agreed upon with patient and/or caregiver. Current Discharge Plan: outpatient rehab Anticipate discharge by 12/10/22 RECOMMENDATION: Next visit to focus on stairs See intervention summary for intervention/education details. documented in this encounter [facility] 11-27-2022 Miscellaneous Notes SITUATION: spouse present during today's visit. patient reports the following since the last homecare visit: medications/allergies--no changes, no fall. patient reports she is active with the [facility] program for recovery from knee replacement and the message she got today is that she should be starting to use cane. Patient very upset about this and does not feel ready to try cane and is now wondering if she is behind on her recovery. . BACKGROUND: Diagnoses (reason for Home Care): LTKR Weight Bearing/Precaution Changes: no changes ASSESSMENT: Focus of visit performed and progressed ROm and strength exercises for HEP, Gait training w.ww. Patient has occasional buckle sensation of L knee when walking. Instructed patient to continue w/ WW for safety and to decrease fall risk. AAROM 0-87 Plan of care, goals, and visit frequency reviewed and agreed upon with patient and/or caregiver. Current Discharge Plan: outpatient rehab Anticipate discharge by 12/10/22 RECOMMENDATION: Next visit to focus on step training if able See intervention summary for intervention/education details. documented in this encounter [facility] 11-26-2022 Miscellaneous Notes Removed surgical bandage on 11/25/22. Picture uploaded to chart. No concerns at this time. Can you please enter OP PT orders so I can get this scheduled for you to ensure no down times in her therapy? Thanks Also, patient wanted to me to check with you about her upcoming Xrays orders. She stated that this appointment was supposed to be moved to the [place] location but it is still showing [place] location on MyChart. Patient is planning on going to [place] [facility] location for the Xrays. documented in this encounter [facility] 11-25-2022 Miscellaneous Notes SITUATION: spouse present during today's visit. patient reports the following since the last homecare visit: medications/allergies--no changes, no fall. patient reports she is doinng ok but was really siore after last PT visit. BACKGROUND: Diagnoses (reason for Home Care): LTKR Weight Bearing/Precaution Changes: no changes ASSESSMENT: Focus of visit pate removal. No concerns w/ healing. With patients consent, picture uploaded to chart. performed supinr and seated ROM and strength exercises for HEP. Gait training w/ww. AAROM 80 Plan of care, goals, and visit frequency reviewed and agreed upon with patient and/or caregiver. Current Discharge Plan: outpatient rehab Anticipate discharge by 12/10/22 RECOMMENDATION: Next visit to focus on add step flexion stretch See intervention summary for intervention/education details. documented in this encounter [facility] 11-22-2022 Miscellaneous Notes SITUATION: spouse present during today's visit. patient reports the following since the last homecare visit: medications/allergies--no changes, no fall. patient reports the past few days have been really tough but its getting better BACKGROUND: Diagnoses (reason for Home Care): left TKR 11/18/22 Past Medical History: Gastroesophageal Reflux Disease Anemia Emotional Lability Rheumatoid Arthritis of Multiple Sites Without Organ Or System Involvement With Positive Rheumatoid Factor (Hcc) Drug Allergy Aller gy to Sulfa Drugs Rash and Nonspecific Skin Eruption Hypothyroidism Moderate Obstructive Sleep Apnea Acute Pain of Both Knees Knee Joint Stiffness, Bilateral Difficulty Walking Hip Stiffness, Unspecified Laterality Right Lumbar Radiculitis Lumbar Spondylosis Chronic Right-Sided Low Back Pain With Right-Sided Sciatica Rheumatoid Arthritis Involving Both Knees With Positive Rheumatoid Factor (Hcc) Exercise-Induced As thma Status Post Knee Replacement Raynaud Phenomenon Calcific Tendinitis of Right Shoulder Cervical Radiculopathy Disorder of Acromioclavicular Joint Personal History of Rheumatoid Arthritis History of Hypothyroidism Fibromyalgia 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 Mindy (Iron Deficiency Anemia) Status Post Total Replacement of Right Hip Weight Bearing or Surgical Precautions: TKR precautions no pillow under knee, ASSESSMENT: Focus of visit review of HEP, gait, transfers ROM L Knee 77* Plan of care, goals, and visit frequency reviewed and agreed upon with patient and/or caregiver. Current Discharge Plan: outpatient rehab Anticipate discharge by 12/14/22 RECOMMENDATION: Next visit to focus on ther ex, gait, balacne, transfers ,rom See intervention summary for intervention/education details. documented in this encounter [facility] 11-20-2022 Miscellaneous Notes SITUATION: spouse present during today's visit. patient reports Bad night last night with pain. Called MD office last night and changing pain med's today. has left TKR on 11/18/22. Had previous right TKR and THR. . BACKGROUND: Diagnoses (reason for Home Care): left TKR 11/18/22 Past Medical History: Gastroesophageal Reflux Disease Anemia Emotional Lability Rheumatoid Arthritis of Multiple Sites Without Organ Or System Involvement With Positive Rheumatoid Factor (Hcc) Drug Allergy Aller gy to Sulfa Drugs Rash and Nonspecific Skin Eruption Hypothyroidism Moderate Obstructive Sleep Apnea Acute Pain of Both Knees Knee Joint Stiffness, Bilateral Difficulty Walking Hip Stiffness, Unspecified Laterality Right Lumbar Radiculitis Lumbar Spondylosis Chronic Right-Sided Low Back Pain With Right-Sided Sciatica Rheumatoid Arthritis Involving Both Knees With Positive Rheumatoid Factor (Hcc) Exercise-Induced As thma Status Post Knee Replacement Raynaud Phenomenon Calcific Tendinitis of Right Shoulder Cervical Radiculopathy Disorder of Acromioclavicular Joint Personal History of Rheumatoid Arthritis History of Hypothyroidism Fibromyalgia 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 Mindy (Iron Deficiency Anemia) Status Post Total Replacement of Right Hip Weight Bearing or Surgical Precautions: TKR precautions no pillow under knee, ASSESSMENT: Patient evaluated by [facility] physical therapy. Reviewed and explained homecare services. Plan of care, goals, and visit frequency developed, reviewed, and agreed upon with patient and/or caregiver. Patient Goal: return to independence with no pain Patient will benefit from continued physical therapy to address the following deficits: strength, balance, gait, left knee joint ROM, transfers, stair negotiation and bed mobility. Current Discharge Plan: outpatient rehab. Anticipate discharge by 12/14/22. RECOMMENDATION: Next visit to focus on TKR exercises, pain management, gait Agreeable to PT; declining na. See intervention summary for intervention/education details. documented in this encounter [facility] 11-20-2022 Miscellaneous Notes She has been needing to take 2 oxycodone at once but feels this is too strong. She is going to stop that all together and try norco. DC any other tylenol. She voiced understanding. documented in this encounter [facility] 11-20-2022 Miscellaneous Notes Patient Name: Aury Metz, 57 year old, female Patient Patient called on November 20, 2022 regarding post-op pain Patient had L TKA surgery on 11/18/22 Subjective: - Reports poorly controlled L knee pain - States she has only been taking 1 oxycodone every 4 hours and 1 tylenol every 6 hours - Denies fevers, chills, sweats - Denies calf pain - Denies any antecedent injury Assessment/Plan: - Advised patient that it is okay to take 2 oxycodone every 4 hours and 2 tylenol every 6 hours as needed for pain - Advised to continue aggressively elevating and icing - Advised that if her pain did not resolve with the interventions and plan described above, if it worsened, or if they developed chest pain/shortness of breath that they should proceed to the nearest urgent care/emergency room. Concerns addressed, questions answered appropriately. Patient in agreement with plan and verbalized understanding. Lito Botello MD PGY2 Resident Orthopaedic Surgery Please page [phone]) from 5p-6a and on weekends for any issues. documented in this encounter [facility] 11-20-2022 Miscellaneous Notes Patient is experiencing poorly controlled post-op pain. Conferenced to the Main [place] [employer] to page on-call for Dr. Ambriz in orthopedics. documented in this encounter [facility] 11-19-2022 Note HNO ID: [id number] Author: Ellen Allen APRN.LINOTYPE MACHINIST APPRENTICE Service: Hospital Medicine Author Type: Nurse Practitioner Type: Progress Notes Filed: 11/19/2022 9:59 AM Note Text: ORTHOPAEDIC POSTOP PROGRESS NOTE SERVICE DATE: 11/19/2022 SERVICE TIME: 9:57 AM Subjective Aury Metz is POD1 from Status post total left knee replacement. Patient states they are comfortable and were able to obtain rest overnight. Surgical site pain is controlled and they report mild incisional pain. Patient has ambulated with assistance. Patient denies any chest pain or calf pain. Patient has urinated, has passed gas, and has not had a bowel movement. They report they are ready and willing to go Home, with home health. Objective VITAL SIGNS: BP 122/62 Pulse 72 Temp 36.2 ?C (97.2 ?F) (Oral) Resp 18 Ht 167.6 cm (5' 6) Wt 67.6 kg (149 lb) LMP 06/15/2015 (Exact Date) SpO2 98% BMI 24.05 kg/m? INTAKE AND OUTPUT: Intake/Output Summary (Last 24 hours) at 11/19/2022 0957 Last data filed at 11/18/2022 1645 Gross per 24 hour Intake 200 ml Output 1650 ml Net -1450 ml PHYSICAL EXAMINATION: Left Lower Extremity: Dorsalis pedis pulses palpable. Posterior tibial pulses palpable. Dorsi flexion 5/5. Plantar flexion 5/5. Extensor hallucis extension: 5/5. Sensory intact to light touch L1-S1. Dressing clean, dry, and intact. Surgical site has no drainage and Aquacell intact. Problem Review and Assessment: Patient monitored, no new events overnight. LABS: Recent Labs 11/19/22 0445 HB 10.0* HCT 30.6* DATA: Diagnostic tests reviewed for today's visit: Most recent labs Assessment/Plan S/P Procedure(s) (LRB): ARTHROPLASTY REPLACE JOINT TOTAL KNEE (Left) on 11/18/2022 POSTOP PLAN: Physical Therapy evaluation Pain control Case Management for discharge planning DVT prophylaxis: Patient home with aspirin, additional anticoagulant is contraindicated due to bleeding risk and Graduated compression stockings (GCS) This patient will follow up with Dr. Ambriz as an outpatient for further evaluation and treatment. ACTIVE PROBLEM LIST Awareness of Heartbeats Gastroesophageal Reflux Disease Anemia Emotional Lability Rheumatoid Arthritis of Multiple Sites Without Organ Or System Involvement With Positive Rheumatoid Factor (Hcc) Drug Allergy Allergy to Sulfa Drugs Rash and Nonspecific Skin Eruption Hypothyroidism Moderate Obstructive Sleep Apnea Acute Pain of Both Knees Knee Joint Stiffness, Bilateral Difficulty Walking Hip Stiffness, Unspecified Laterality Right Lumbar Radiculitis Lumbar Spondylosis Chronic Right-Sided Low Back Pain With Right-Sided Sciatica Rheumatoid Arthritis Involving Both Knees With Positive Rheumatoid Factor (Hcc) Exercise-Induced Asthma Status Post Knee Replacement Raynaud Phenomenon Calcific Tendinitis of Right Shoulder Cervical Radiculopathy Disorder of Acromioclavicular Joint Personal History of Rheumatoid Arthritis History of Hypothyroidism Fibromyalgia 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 Mindy (Iron Deficiency Anemia) Status Post Total Replacement of Right Hip Reaction to Contrast Media Primary Osteoarthritis of Left Knee Status Post Total Left Knee Replacement Medication and Non-Pharmacologic VTE Prophylaxis/Anticoagulants Anticoagulant AND Antiplatelet Medications (From admission, onward) Start Dose Route Frequency Last Action Ordered Stop 11/19/22 0900 aspirin, enteric coated 81 mg tab(s) (Surgical Risk Categories) 81 mg ORAL 2 TIMES DAILY Given, 11/19 0811/18/22 1116 -- 11/18/22 1130 graduated compression stockings ([place]) 11/18/22 1130 activity - mobilize patient ([place]) VTE Prophylaxis: VTE prophylaxis appropriate POST OPERATIVE COMPLICATIONS: Complicated by: uneventful/none I spent a total of 25 minutes on the date of the service which included preparing to see the patient, [id number] patient care, completing clinical documentation, obtaining and/or reviewing separately obtained history, performing a medically appropriate examination, counseling and educating the patient/family/caregiver, and ordering medications, tests, or procedures. SIGNATURE: Ellen Allen, MSN, TRASH COLLECTOR, SOCIAL WORK JOB TITLES-C PATIENT NAME: Aury Metz DATE: November 19, 2022 TIME: 9:59 AM PAGER: [phone] [facility] 11-18-2022 Miscellaneous Notes Welcome Home Call: [phone] a. Date and Time: 2:42 PM 11/18/2022 b. Contact name/relationship: patient c. Have you been active with any Home Care company in the last 60 days(such as help with bathing, filling medications, checking your blood pressure) ? No. d. Was patient given Flu shot this Season (After May,): No: Patient refused e. [facility] will be providing your care, are you agreeable to starting these services? yes (yes or no) f. Do you have any upcoming appointments in the next few days, or restrictions to your schedule? No g. Caregiver: Yes - Caregiver name spouse Luc ; spoke with patient to confirm No h. Confirmed Visited Location and preferred #: yes Please keep our your medications both over the counter and prescribed out for the home care to review, your hospital discharge instructions and write down any questions you might have. In order to maintain a safe environment for our caregivers, [facility] requires any animals or weapons present in the home be located in a secured location. Our clinicians will call you the night before or the morning of the appointment. Their # may come up restricted but they'll leave a VM for you. In case you have any questions or concerns in the meantime, our # is [phone], option 5 Thank you for your time and have a great day. - Patient states No travel or COVID contact and has all DME already MICHELLE Clinton documented in this encounter [facility] 11-18-2022 Note HNO ID: [id number] Author: Juni Ocasio MD Service: Anesthesiology Author Type: Anesthesiologist Type: Anesthesia Procedure Notes Filed: 11/18/2022 10:33 AM Note Text: ANESTHESIOLOGY PROCEDURE NOTE Peripheral Nerve Block General Information Procedure Start Time/Medication Administration: 11/18/2022 10:26 AM Procedure End time: 11/18/2022 10:29 AM Patient location during procedure: PACU Timeout Performed Pre-procedure: timeout performed Consent Obtained: Yes 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 Reason for block: post-op pain management/at surgeon's request Staffing Anesthesiologist: Juni Ocasio MD Performed by: anesthesiologist Preparation Sterility Preparation: hand hygiene performed prior to procedure, surgical cap used, mask used, sterile drape used during line insertion, skin prep agent completely dried prior to procedure Site Prep: Chloraprep Pre-Procedure Neuro Exam Location: LLE Sensory: sensory deficit Motor: pre-existing condition Procedure Details Patient Position: supine Monitoring: Pulse OX, EKG and NIBP Block Type Lower Extremity: distal femoral (adductor canal) Laterality: left Injection Technique: single-shot Ultrasound Guided: Yes Image in Chart: yes Local Infiltration: Yes Needle Needle Type: echogenic Needle Gauge: 22 G Needle Length: 100 mm Needle Localization: ultrasound Assessment Injection assessment: negative aspiration, no paresthesia on injection, incremental injection and local visualized surrounding nerve on ultrasound Post-Procedure Neuro Exam Expected Regional Anesthesia: Yes Medications Administered ropivacaine (PF) 5 mg/mL (0.5 %) injection (NAROPIN) - peripheral nerve block 20 mL - 11/18/2022 10:26:00 AM dexamethasone sodium phosphate injection (DECADRON) - peripheral nerve block 4 mg - 11/18/2022 10:26:00 AM SIGNATURE: Juni Ocasio MD PATIENT NAME: Aury Metz DATE: November 18, 2022 TIME: 10:32 AM CSN: [id number] [facility] 11-18-2022 Note HNO ID: [id number] Author: MILES Taylor Service: Anesthesiology Author Type: Hog Scraper Type: Anesthesia Procedure Notes Filed: 11/18/2022 9:07 AM Note Text: ANESTHESIOLOGY PROCEDURE NOTE Spinal Block General Information Procedure Start Time/Medication Administration: 11/18/2022 7:43 AM Procedure End time: 11/18/2022 7:45 AM Patient location during procedure: OR Timeout Performed Pre-procedure: timeout performed Consent Obtained: Yes Patient identity confirmed: arm band and patient Reason for Block: primary surgical anesthetic Staffing Anesthesiologist: Zofia Rock MD CAA: MILES Taylor Performed by: CAA and CAA student Preparation Sterility Preparation: hand hygiene performed prior to procedure, sterile gloves, drapes, and procedure tray, surgical cap used, mask used, sterile drape used during line insertion, skin prep agent completely dried prior to procedure Sterility Technique Not Completely Performed Due to Extreme Emergency: No Site Prep: Duraprep Procedure Details Patient Position: sitting Ultrasound Guided: No Monitoring: Pulse Ox, EKG and NIBP Approach: Midline Location: L3-4 Injection Technique: single-shot Needle Needle Type: pencil-tip Needle Gauge: 25 G Needle Length: 3.5 in Assessment Sensory Level: T10 Events: tolerated well Medications Administered bupivacaine-dextrose 0.75 % (7.5 mg/mL) injection (SENSORCAINE MPF SPINAL) - INTRASPINAL 1.6 mL - 11/18/2022 7:45:00 AM Comments CAA student Renetta Felton SIGNATURE: MILES Taylor PATIENT NAME: Aury Metz DATE: November 18, 2022 TIME: 7:52 AM CSN: [id number] [facility] 11-06-2022 Instructions Jesusita Kohler PA-C - 11/06/2022 10:40 AM EST Images from the original note were not included. Bowel Preparation Instructions for: Miralax-Gatorade Preparations IF YOU DO NOT FOLLOW THESE DIRECTIONS, YOUR COLONOSCOPY WILL BE CANCELLED. Gonzalez Instructions: Your bowel must be empty so that your doctor can clearly view your colon. Follow all of the instructions in this handout EXACTLY as they are written. Do NOT eat any solid food the ENTIRE day before your colonoscopy. Buy your bowel preparation at least 5 days before your colonoscopy. Four (4) Dulcolax laxative tablets containing 5mg of bisacodyl each (NOT Dulcolax stool softener) One (1) 8.3oz. bottle Miralax (238 grams) or generic equivalent 2 x 32oz. Bottles of Gatorade (NOT RED) Diabetic Patients: Use G2 (Gatorade 2) TRANSPORTATION on the Day of Your Exam A responsible adult MUST be present with you at Check In prior to your colonoscopy and REMAIN in the endoscopy area until you are discharged. You are NOT ALLOWED to drive, take a taxi or bus, or leave the Endoscopy Center ALONE. If you do not have a responsible taxi cab driver (family member or friend) with you to take you home, your exam cannot be done with sedation and will be cancelled. Please bring a list of all of your current medications, including any [id number]-bgy-[id number] medications with you. Medications If you take insulin, diabetic medications or blood thinners such as Coumadin (warfarin), Plavix (clopidogrel), Ticlid (ticlopidine hydrochloride), Agrylin (anagrelide), Xarelto (Rivaroxaban), Pradaxa (Dabigatran), Eliquis (Apixaban), and Effient (Prasugrel). You MUST call the doctors who orders those medicines for instructions on altering the dosage before your colonoscopy. All other medications should be taken the day of the exam with a sip of water including ASPIRIN. Five (5) Days Before Your Colonoscopy Do NOT take medicines that stop diarrhea - such as Imodium, Kaopectate, or Pepto Bismol. Do NOT take fiber supplements - such as Metamucil, Citrucel, or Perdiem. Do NOT take products that contain iron - such as multi-vitamins (the label lists what is in the products). Three (3) Days Before Your Colonoscopy Do NOT eat high-fiber foods - such as popcorn, beans, seeds (flax, sunflower, quinoa), multigrain bread, nuts, salad/vegetables, or fresh and dried fruit. 1 Bowel Preparation Instructions for: Miralax-Gatorade Preparations One (1) Day Before Your Colonoscopy Only drink clear liquids the ENTIRE DAY before your colonoscopy. Do NOT eat any solid foods. Drink at least 8 ounces of clear liquids every hour after waking up. The clear liquids you can drink include: Clear Liquid (NO RED LIQUIDS) DO NOT DRINK Gatorade, Pedialyte or Powerade Clear broth or bouillon Coffee or tea (no milk or non-dairy creamer) Carbonated and non-carbonated soft drinks Casimiro-Aid or other fruit flavored drinks Strained fruit juices (no pulp) Jell-O, popsicles, hard candy Water Alcohol Milk or non-dairy creamers Noodles or vegetables in soup Juice with pulp Liquid you cannot see through Do not use tobacco/vaping products Mix 1/2 of Miralax bottle (119 grams) in each 32 ounces of Gatorade bottle until dissolved. Keep cool in the refrigerator. DO NOT ADD ICE. The bowel preparation solution will be consumed in two parts. Part 1 5:00 PM - Evening before your colonoscopy Take 4 Dulcolax tablets. 6 PM - Evening before your colonoscopy Drink 32 oz. of the mixed solution. Drink an 8 oz. glass of bowel preparation every 15 minutes for a total of 4 glasses. Fifteen (15) minutes later, drink an 8 oz. glass of of clear liquids every 15 minutes for a total of 2 glasses. You may continue to drink clear liquids till midnight. Part 2 On the day of your colonoscopy you may drink clear liquids up to (three) 3 hours prior to procedure. 4 1/2 hours before your colonoscopy Take another 32 oz. bottle of mixed solution. Drink an 8 oz. glass of bowel prep every 15 minutes for a total of 4 glasses. Fifteen (15) minutes later, drink an 8 oz. glass of clear liquids every 15 minutes for a total of 2 glasses. You may continue to drink clear liquids up to (three) 3 hours before your exam. 2 08/2019 documented in this encounter [facility] 11-06-2022 History of Presen t illness Narrative CHIEF COMPLAINT: Patient presents with: GERD: Per 10/08 Convo in chart [facility] need colonoscopy- Pt also states she has pouches down there on the outside HPI: Aury Metz is a 57 year old female with PMHx positive for RA who presents for GERD (Per 10/08 Convo in chart [facility] need colonoscopy ). Admits to chronic issues with GERD. On Celebrex BID less than a year. Recently started taking Prilosec 20 mg daily again regularly for the past 2 mos, does not know if it is helping yet. Chronically fluctuates in her weight by 10 lbs. Chronically on metho for her RA. Admits to lower abd pain, unchanged with BM. Bms are daily, regular consistency, intermittent blood in stools/[facility]. Component Latest Ref Rng & Units 11/01/2022 WBC 3.70 - 11.00 k/uL 4.53 RBC 3.90 - 5.20 m/uL 3.86 (L) Hemoglobin 11.5 - 15.5 g/dL 11.7 Hematocrit 36.0 - 46.0 % 34.8 (L) MCV 80.0 - 100.0 fL 90.2 MCH 26.0 - 34.0 pg 30.3 MCHC 30.5 - 36.0 g/dL 33.6 RDW-CV 11.5 - 15.0 % 16.4 (H) Platelet Count 150 - 400 k/uL 245 MPV 9.0 - 12.7 fL 9.3 Neut% % 59.2 Abs Neut (ANC) 1.45 - 7.50 k/uL 2.68 Lymph% % 27.2 Abs Lymph 1.00 - 4.00 k/uL 1.23 [place]% % 9.7 Abs [place] <0.87 k/uL 0.44 Eosin% % 3.3 Abs Eosin <0.46 k/uL 0.15 Baso% % 0.4 Abs Baso <0.11 k/uL <0.03 Immature Gran % % 0.2 IMMATURE GRANS (ABS) <0.10 k/uL <0.03 NRBC /100 WBC 0.0 Absolute nRBC <0.01 k/uL <0.01 DTYPE Auto Protein, Total 6.3 - 8.0 g/dL 6.7 Albumin 3.9 - 4.9 g/dL 4.5 Calcium 8.5 - 10.2 mg/dL 9.1 Bilirubin, Total 0.2 - 1.3 mg/dL 0.2 Alkaline Phosphatase 34 - 123 U/L 92 AST 13 - 35 U/L 24 ALT 7 - 38 U/L 21 Glucose 74 - 99 mg/dL 91 BUN 7 - 21 mg/dL 8 Creatinine 0.58 - 0.96 mg/dL 0.52 (L) Sodium 136 - 144 mmol/L 141 Potassium 3.7 - 5.1 mmol/L 3.7 Chloride 97 - 105 mmol/L 103 CO2 22 - 30 mmol/L 26 Anion Gap 9 - 18 mmol/L 12 eGFR >=60 mL/min/1.73m 107 ABO O Rh(D) Positive Antibody Screen Negative Historical Ab Scr Status NEGATIVE Iron 41 - 186 ug/dL 89 TIBC 232 - 386 ug/dL 240 Transferrin Saturation 15.0 - 57.0 % 37.1 Ferritin 14.7 - 205.1 ng/mL 555.0 (H) Record Review: [facility] / Outside records reviewed. PAST MEDICAL HISTORY Diagnosis Date Bronchitis, not specified as acute or chronic Dizziness and giddiness Esophageal reflux 10/27/2006 High cholesterol Palpitations 06/08/2007 Stress echo at [facility] and EF% is 61. RA (rheumatoid arthritis) (HCC) Rheumatoid arthritis(714.0) 05/02/2011 PAST SURGICAL HISTORY Procedure Laterality Date EGD W/O [facility] SPEC VARICIES INJ 06/03/2013 ESOPHAGOSCOPY FLEX BALLOON DILAT <30 MM DIAM 2001 2005 Esophageal dilatation LAPS ABD PRTM&OMENTUM DX W/WO SPEC BR/WA SPX Laparoscopy LIG/TRNSXJ FLP TUBE ABDL/VAG APPR UNI/BI Tubal ligation TOTAL HIP REPLACEMENT Right 05/2022 TOTAL KNEE REPLACEMENT Right 07/02/2021 Allergies: ALLERGIES Allergen Reactions Cephalexin Anaphylaxis, Other: See Comments Throat swelling. Has tolerated augmentin 850mg as op after this episode Aciphex [Rabeprazol* Other: See Comments Chest pain Bactrim [Sulfametho* Vomiting Carafate [Sucralfat* Vomiting Darvocet-N 100 [Pro* Other: See Comments dizzy severe pain in head Erythromycin Vomiting Iodinated Contrast * Shortness of Breath Vancomycin Itching Scalp itchy Medications: [facility] USE 1 DEVICE ONLY ONCE FOR 1 DOSE KEVZARA 200 mg/1.14 mL pnij albuterol HFA (PROVENTIL HFA, VENTOLIN HFA) 90 mcg/actuation inhaler Inhale 2 Puffs as instructed every 4 hours as needed for wheezing/shortness of breath. thyroid, pork, (ARMOUR THYROID) 60 mg tablet Take 1 tablet by mouth once daily. omeprazole (PRILOSEC) 20 mg capsule Take 1 capsule by mouth once daily. acetaminophen (TYLENOL ORAL) Take by mouth as needed. mupirocin (BACTROBAN) 2 % ointment Apply 0.5 inch with cotton swab (Q-tip) to each nostril in the morning and evening for 5 days prior to and including day of surgery. methotrexate sodium 25 mg/mL soln Inject 0.6 mL subcutaneously one time a week. folic acid 1 mg tablet Take 1 tablet by mouth once daily. celecoxib (CELEBREX) 100 mg capsule Take 1 capsule by mouth twice daily. CPAP Pt with known NIKO confirmed by [facility]. AHI normalized with PAP. Has PAP device (Airsense 10 ([id number])). However, not receiving masks through current DME. Requests change. NIKO sx resolved with PAP. Please fit with Dreamwear under nose FFM (not pillows). Needs supplies. Lifetime supplies. Please provide us download in 4 weeks. Cetirizine (ZYRTEC) 10 mg cap Take 1 capsule by mouth once daily as needed (allergies). 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 Gastrointestinal: Positive for abdominal pain, anal bleeding, blood in stool, nausea and rectal pain. Heartburn All other systems reviewed and are negative. Are you taking any blood thinners? No Physical Examination: BP 122/72 Pulse 90 Ht 5' 5.5 (1.66m) Wt 148 lb 1.6 oz (67.2kg) LMP 06/15/2015 BMI 24.26 kg/(m^2). Physical Exam Constitutional: General: She is not in acute distress. Appearance: Normal appearance. She is normal weight. She is not ill-appearing, toxic-appearing or diaphoretic. HENT: Head: Normocephalic and atraumatic. Nose: Nose normal. Eyes: General: No scleral icterus. Right eye: No discharge. Left eye: No discharge. Extraocular Movements: Extraocular movements intact. Conjunctiva/sclera: Conjunctivae normal. Pupils: Pupils are equal, round, and reactive to light. Cardiovascular: Rate and Rhythm: Normal rate and regular rhythm. Pulses: Normal pulses. Heart sounds: Normal heart sounds. No murmur heard. No friction rub. No gallop. Pulmonary: Effort: No respiratory distress. Breath sounds: Normal breath sounds. No stridor. No wheezing, rhonchi or rales. Chest: Chest wall: No tenderness. Abdominal: General: Abdomen is flat. Bowel sounds are normal. There is no distension. Palpations: Abdomen is soft. There is no mass. Tenderness: There is no abdominal tenderness. There is no right CVA tenderness, left CVA tenderness, guarding or rebound. Hernia: No hernia is present. Musculoskeletal: General: Normal range of motion. Cervical back: Normal range of motion and neck supple. Skin: General: Skin is warm and dry. Neurological: General: No focal deficit present. Mental Status: She is alert and oriented to person, place, and time. Psychiatric: Mood and Affect: Mood normal. Behavior: Behavior normal. Assessment/Plan (K21.9) Gastroesophageal reflux disease, unspecified whether esophagitis present (primary encounter diagnosis) (K92.1) Blood in stool (R10.30) Lower abdominal pain (R79.89) Elevated ferritin 1. Gastroesophageal reflux disease, unspecified whether esophagitis present - EGD DIAGNOSTIC; Future - Continue Prilosec 20 mg daily. Discussed increase in dosage which she would like to wait on until EGD - Start Zofran PRN - Discussed gastritis precautions - EGD to r/o H. Pylori, PUD, metaplasia - Per ortho EGD/Colon not to be done until 8 weeks after surgery 11/18/2022 Recommend high protein, high fiber diet. Promotion of salivation through oral lozenges/chewing gum Drink plenty of water Avoid NSAIDs (such as Advil, Ibuprofen, Excedrin, Mobic), tobacco, alcohol, carbonated beverages, caffeine, chocolate, tomato based sauces, spicy/fatty foods, and peppermint Avoid eating less than 3 hours before bed. Elevate the head of the bed 6 inches, or invest in a wedge pillow. Laying on left side with head elevated may help alleviate reflux symptoms. 2. Blood in stool - COLONOSCOPY DIAGNOSTIC; Future 3. Lower abdominal pain - COLONOSCOPY DIAGNOSTIC; Future - Will start on Levsin PRN - Colon to r/o hemorrhoids, colorectal lesions 4. Elevated ferritin - HFE (HEMOCHROMATOSIS); Future - US ABD RT UPPER QUADRANT; Future - Likely related to h/o iron infusions after ortho procedures - Will obtain additional testing to r/o other sources I spent a total of 30 minutes on the date of the service which included preparing to see the patient, [id number] patient care, completing clinical documentation, obtaining and/or reviewing separately obtained history, performing a medically appropriate examination, counseling and educating the patient/family/caregiver, ordering medications, tests, or procedures, communicating with other HCPs (not separately reported), independently interpreting results (not separately reported), communicating results to the patient/family/caregiver, and care coordination (not separately reported). Jesusita Kohler PA-C November 06, 2022 10:44 AM documented in this encounter [facility] 11-06-2022 Miscellaneous Notes Spoke with pt and February 26 at 4:20 pm works for her to do the physical. Will have Dr. Crabtree's nurse put in Epic. Marina Yu LPN May use 2 PCP flex slots that are back to back on Wednesdays for a Yearly physical 40 minute slot (found at least 2 Wednesdays that are open for this) Spoke with pt and information listed below given. Pt verbalizes understanding. Was not able to give a physical apt with pt around February. 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 this time Please review and advise pt. Marina Yu LPN Needs next follow up scheduled. Last saw Ev in office March 2022 and did VV with me August 2022. See if wants to schedule a routine medical/physical in the next 4 to 6 months or just 4 to 6 month follow up after seen August. The following approved medication requests have been transmitted electronically. Requested Prescriptions Signed Prescriptions Disp Refills albuterol HFA (PROVENTIL HFA, VENTOLIN HFA) 90 mcg/actuation inhaler 1 Each 2 Sig: Inhale 2 Puffs as instructed every 4 hours as needed for wheezing/shortness of breath. Authorizing Provider: TIMBO BRIGHT thyroid, pork, (ARMOUR THYROID) 60 mg tablet 90 tablet 1 Sig: Take 1 tablet by mouth once daily. Authorizing Provider: TIMBO BRIGHT omeprazole (PRILOSEC) 20 mg capsule 90 capsule 1 Sig: Take 1 capsule by mouth once daily. Authorizing Provider: TIMBO BRIGHT MD LAUREN: 09/06/2022 Patient has been identified by name and date of : Yes Requested Prescriptions Pending Prescriptions Disp Refills albuterol HFA (PROVENTIL HFA, VENTOLIN HFA) 90 mcg/actuation inhaler 1 Each 2 Sig: Inhale 2 Puffs as instructed every 4 hours as needed for wheezing/shortness of breath. thyroid, pork, (ARMOUR THYROID) 60 mg tablet 90 tablet 3 Sig: Take 1 tablet by mouth once daily. omeprazole (PRILOSEC) 20 mg capsule 42 capsule 3 Sig: Take 1 capsule by mouth once daily. RX INSTRUCTIONS: Patient aware RX will be sent to pharmacy. No need to notify patient. Shruti Craft [facility] documented in this encounter [facility] 11-01-2022 History and physical note HISTORY AND PHYSICAL EXAMINATION SERVICE DATE: 11/01/2022 SERVICE TIME: 12:35 PM PRIMARY CARE PHYSICIAN: Timbo Bright MD REASON FOR VISIT: Aury Metz is a 57 year old female who is scheduled for at the request of Dr. Anival Ambriz for. My final recommendation will be communicated back to the requesting physician by way of shared medical record or letter. Subjective The patient has the following: ACTIVE PROBLEM LIST Awareness of Heartbeats Gastroesophageal Reflux Disease Anemia Emotional Lability Rheumatoid Arthritis of Multiple Sites Without Organ Or System Involvement With Positive Rheumatoid Factor (Hcc) Drug Allergy Allergy to Sulfa Drugs Rash and Nonspecific Skin Eruption Hypothyroidism Moderate Obstructive Sleep Apnea Acute Pain of Both Knees Knee Joint Stiffness, Bilateral Difficulty Walking Hip Stiffness, Unspecified Laterality Right Lumbar Radiculitis Lumbar Spondylosis Chronic Right-Sided Low Back Pain With Right-Sided Sciatica Rheumatoid Arthritis Involving Both Knees With Positive Rheumatoid Factor (Hcc) Exercise-Induced Asthma Status Post Knee Replacement Raynaud Phenomenon Calcific Tendinitis of Right Shoulder Cervical Radiculopathy Disorder of Acromioclavicular Joint Personal History of Rheumatoid Arthritis History of Hypothyroidism Fibromyalgia 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 Mindy (Iron Deficiency Anemia) Status Post Total Replacement of Right Hip Reaction to Contrast Media COVID-19 Immunization Status Overdue - COVID-19 VACCINE (1) Overdue - never done 09/06/2021 Postponed until 09/06/2022 by Vivien Valdez LPN (Declined at this time) CHIEF COMPLAINT: Pre-op exam HPI: KF is a 56 yo seen for PAC due to scheduled above surgery because of OA bilateral knees. 05/16/2021 Dr. Ambriz Aury Metz is a 56 year old patient here for evaluation and management of bilateral knee pain. Right >left. Aury Metz has had progressive problems with the knee(s) constantly over the past 1 year(s) interfering with activities which include exercise, walking, rising from a sitting position and standing for prolonged periods of time. The problem began limiting activities 7-12 months ago. Currently the pain in the joint is rated at 4 out of 10 with minimal activity. The pain is constant and is located global. The pain is described as aching. Relieving factors include no relieving factors. There is no specific incident that brought about this pain. Aury Metz has no additional complaints. FUNCTIONAL STATUS: Do yardwork, such as raking leaves, weeding,or pushing a power mower (4.50 METs) Preoperative Ambulatory Status: Independent Community Distances Number of Entry Steps: None Bedroom Location: First floor Bathroom Location: First floor Caregiver Assistance: Consistent/Live-In (5-7 days/wk) Home Location: [place] to 150 miles PREVIOUS TREATMENTS: Bilateral knee steroid injections > 6 months ago Visco injections- bilateral knee injections Right knee arthroscopy > 5 years ago. otc nsaids > 3 months Physical therapy REVIEW OF SYSTEMS: General: No weight loss, malaise or fevers. 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 No neurological symptoms or problems. Respiratory: Positive for: asthma (+h/o exercise induced, no inhaler prescribed), obstructive sleep apnea and CPAP/BiPAP compliant. Negative for: COPD, pneumonia within 6 weeks, tobacco use and URI < 2 weeks. Cardiovascular: Positive for: arrhythmia (+palpitations, no rx and hx tachycardia) and hyperlipidemia (diet controlled) Negative for: anticoagulation therapy, atrial fibrillation, CAD, chest pain, CHF, congenital heart defect, DVT/PE, hypertension, recent ND, murmur/valvular heart disease, open heart surgery and valve surgery. GI: Positive for: GERD (rx as needed) Negative for: abdominal pain, dysphagia, hepatitis, irritable bowel syndrome, inflammatory bowel disease, liver disease, nausea, pancreatitis, vomiting and ETOH >2 drinks/day. : No history of dysuria, frequency or incontinence, stones or chronic kidney disease. No difficulty urinating, nocturia > 1 time per night or hematuria. 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 Endocrine: Positive for: hypothyroidism (on rx). Negative for: diabetes mellitus. Hematology: Positive for: anemia and iron deficiency anemia. Negative for: bruises/bleeds easily, transfusion of at least 4 units within 72 hours prior to surgery and chronic anti-coagulation/platelet meds. Oncology: No history of CA metastasis, chemo within 30 days, or radiotherapy within 90 days. No history of oncological symptoms or problems. Psych: No history of psychiatric symptoms or problems. Musculoskeletal: Positive for: rheumatoid arthritis. Patient's clinical trial associate is [facility]. Patient is using prednisone (MTX and prednisone as needed) for RA. Skin: Negative for lesions, rash and itching. PAST MEDICAL HISTORY Diagnosis Date Bronchitis, not specified as acute or chronic Dizziness and giddiness Esophageal reflux 10/27/2006 High cholesterol Palpitations 06/08/2007 Stress echo at [facility] and EF% is 61. RA (rheumatoid arthritis) (HCC) Rheumatoid arthritis(714.0) 05/02/2011 PAST SURGICAL HISTORY Procedure Laterality Date EGD W/O [facility] SPEC VARICIES INJ 06/03/2013 ESOPHAGOSCOPY FLEX BALLOON DILAT <30 MM DIAM 2001 2005 Esophageal dilatation LAPS ABD PRTM&OMENTUM DX W/WO SPEC BR/WA SPX Laparoscopy LIG/TRNSXJ FLP TUBE ABDL/VAG APPR UNI/BI Tubal ligation TOTAL HIP REPLACEMENT Right 05/2022 TOTAL KNEE REPLACEMENT Right 07/02/2021 FAMILY HISTORY Problem Relation Age of Onset Heart Mother murmur COPD Mother other (High Cholesterol) Mother other (vocal cord paralysis ) Mother other (Abdominal Mass) Mother Not sure if cancerous Hypertension Father Lipids Sister Diabetes Brother Rheumatologic disease Brother Heart Brother Heart Brother mi Diabetes Brother Arthritis Maternal Grandmother RA Breast Cancer Son 18 people on Mom's side of family other (hodgkin) Son Colon Cancer No Family History Social History Tobacco Use Smoking status: Never Smokeless tobacco: Never Vaping Use Vaping Use: Never used Substance Use Topics Alcohol use: No Drug use: No Prior to Admission medications as of 11/06/22 1229 Medication Sig Last Dose Taking acetaminophen (TYLENOL ORAL) Take by mouth as needed. Taking Yes methotrexate sodium 25 mg/mL soln Inject 0.6 mL subcutaneously one time a week. Taking Yes folic acid 1 mg tablet Take 1 tablet by mouth once daily. Taking Yes celecoxib (CELEBREX) 100 mg capsule Take 1 capsule by mouth twice daily. Taking Yes CPAP Pt with known NIKO confirmed by HSAT. AHI normalized with PAP. Has PAP device (Airsense 10 ([id number])). However, not receiving masks through current DME. Requests change. NIKO sx resolved with PAP. Please fit with Dreamwear under nose FFM (not pillows). Needs supplies. Lifetime supplies. Please provide us download in 4 weeks. Taking Yes Cetirizine (ZYRTEC) 10 mg cap Take 1 capsule by mouth once daily as needed (allergies). Taking Yes [facility] USE 1 DEVICE ONLY ONCE FOR 1 DOSE KEVZARA 200 mg/1.14 mL pnij hyoscyamine sublingual (LEVSIN/SL) 0.125 mg Dissolve 1 tablet under the tongue every 4 hours as needed (for abdominal pain). ondansetron (ZOFRAN) 4 mg tablet Take 1 tablet by mouth once daily as needed for nausea/vomiting (for nausea.). albuterol HFA (PROVENTIL HFA, VENTOLIN HFA) 90 mcg/actuation inhaler Inhale 2 Puffs as instructed every 4 hours as needed for wheezing/shortness of breath. thyroid, pork, (ARMOUR THYROID) 60 mg tablet Take 1 tablet by mouth once daily. omeprazole (PRILOSEC) 20 mg capsule Take 1 capsule by mouth once daily. mupirocin (BACTROBAN) 2 % ointment Apply 0.5 inch with cotton swab (Q-tip) to each nostril in the morning and evening for 5 days prior to and including day of surgery. Medication Comments documented by Mis Prescott PT on 06/21/2022 at 0011. Stopped all medications except tylenol and armour thyroid and iron infusions due to surgery 06/20/22 - No Severe DDI - pt is not taking methotrexate ALLERGIES Allergen Reactions Cephalexin Anaphylaxis, Other: See Comments Throat swelling. Has tolerated augmentin 850mg as op after this episode Aciphex [Rabeprazol* Other: See Comments Chest pain Bactrim [Sulfametho* Vomiting Carafate [Sucralfat* Vomiting Darvocet-N 100 [Pro* Other: See Comments dizzy severe pain in head Erythromycin Vomiting Iodinated Contrast * Shortness of Breath Vancomycin Itching Scalp itchy Objective PHYSICAL EXAM: General: alert and oriented (x3) and healthy appearance. Pertinent negatives noted - not distressed. Skin: normal color, no rash or lesions. HEENT: EOM intact and pupils equal round. Pertinent negatives noted - no carotid bruit. Cardiovascular: regular rate and rhythm, normal S1 and S2, no rub, murmurs, or gallop. Respiratory: normal breath sounds, no wheezes or crackles. No chest wall deformity or tenderness. Abdomen: soft. Pertinent negatives noted - not tender. Extremities: no deformity, no edema or tenderness, no joint swelling or clubbing. Neurological: normal cognition and motor skills. Gait normal. No weakness or sensory deficit. PAIN ASSESSMENT: Pain Pain Level: 6 (ambulation) Pain Location: Knee-Left Description: Sharp Duration Amount of Time: 2 Duration Units: Years Frequency: Intermittent Intervention/Comfort measure: Medication, Cold VITALS: BP 106/60 Pulse 95 Temp (Src) 97.7 (Temporal) Resp 16 Ht 5' 6 (1.68m) Wt 149 lb (67.6kg) SpO2 98% LMP 06/15/2015 BMI 24.06 kg/(m^2). Diagnostic tests reviewed for today's visit: Lab Value Units Date High Low HB 11.7 g/dL 11/01/2022 15.5 11.5 HCT 34.8 % 11/01/2022 46.0 36.0 WBC 4.53 k/uL 11/01/2022 11.00 3.70 PLT 245 k/uL 11/01/2022 400 150 NA 141 mmol/L 11/01/2022 144 136 K 3.7 mmol/L 11/01/2022 5.1 3.7 GLUC 91 mg/dL 11/01/2022 99 74 BUN 8 mg/dL 11/01/2022 21 7 CREAT 0.52 mg/dL 11/01/2022 0.96 0.58 PTSEC No results within date range. INR No results within date range. APTT No results within date range. ALT 21 U/L 11/01/2022 38 7 AST 24 U/L 11/01/2022 35 13 TBILI 0.2 mg/dL 11/01/2022 1.3 0.2 TSH 1.220 mIU/L 06/05/2022 4.200 0.270 Lab Value Units Date High Low HCGQT No results within date range. UHCG No results within date range. HCG, BODY* No results within date range. Lab Value Units Date High Low ABORHD No results within date range. ABSCREEN No results within date range. No results found for: HBA1C Recent Results (from the past 8760 hour(s)) ECG COMPLETE Collection Time: 05/31/22 11:24 AM Result Value Ventricular Rate 65 Atrial Rate 65 P-R Interval 180 QRS Duration 80 QT Interval 408 QTC Calculation (Bazett) 424 Calculated P Critz 71 Calculated R Critz 20 Calculated T Critz 57 Impression NORMAL SINUS RHYTHM NORMAL ECG Confirmed by RAMAKRISHNA KEVIN DO ([id number]) on 06/04/2022 4:19:43 PM Recent Results (from the past 68609 hour(s)) ECHO Collection Time: 02/08/21 7:15 AM Impression CONCLUSIONS: - Technically difficult exam due to body habitus. - Exam indication: Palpitations - The left ventricle is normal in size. Left ventricular systolic function is normal. EF = 61 5% (2D biplane) Normal left ventricular diastolic function. - The right ventricle is normal in size. Right ventricular systolic function is normal. - There are no significant valvular abnormalities. - The patient has not had a prior [facility] echocardiographic exam for comparison. * * * Final * * * Assessment Patient has the following medical conditions which may affect domonique-operative course: Rheumatoid arthritis involving both knees with positive rheumatoid factor (HCC) Assessment: on rx, following [facility] rheumatology Raynaud phenomenon Assessment: hx, no tx Moderate obstructive sleep apnea Assessment: c/w CPAP MINDY (iron deficiency anemia) Assessment: hx of pre-op Venofer tx prior to last surgery 05/2022, new labs pending Hypothyroidism Assessment: stable on rx Gastroesophageal reflux disease Assessment: controlled on rx Exercise-induced asthma Assessment: rx as needed Awareness of heartbeats Assessment: h/o palpitations, since tx of thyroid symptoms resolved, following [facility] cardiology, recent normal echo and negative stress test 2021 Main Activity Status Index: METS: Climb a flight of stairs or walk up a hill (5.50 METs) DASI Score: 5.5 Patient denies any chest pain or undue shortness of breath with the above physical activity. Clinical Frailty Scale: 3. Well, with treated comorbid disease STOP-Bang Score: Denies snoring loudly Denies feeling tired, fatigued, or sleepy during the daytime Has not been observed to stop breathing or choking/gasping during sleep Denies having high blood pressure BMI less than or equal to 35 kg/m^2 Patient 50 years old or younger Does not have a large neck Non-male patient STOP-Bang Score: 0 [id number] Score: Age: <65 Sex: female CHF history: No Hypertension history: No Stroke/TIA/thromboembolism history: No Vascular disease history: No Diabetes history: No [id number] Score: 1 ARISCAT Score: Age: 51-80 Preoperative SpO2: >=96% Respiratory infection in the last month: No Preoperative anemia: No Surgical incision: peripheral Duration of surgery: 2-3 hrs Emergency procedure: No ARISCAT Score: 19 ASA Class: 3 ANESTHESIA FINDINGS: Intubation History: No history of difficult intubation Significant Anesthesia Considerations: none Airway History: No history of difficult airway I - PHYSICAL EVALUATION AIRWAY Patient intubated: No. Tracheostomy tube not present Mallampati: II. TM distance: >3 FB. Neck ROM: full ROM without neurological symptoms. Mouth opening: adequate. Short neck: no. Thick neck: no DENTAL Dentures, upper: partial. Additional comments: Crowns/back. II - ANESTHESIA PLAN ASA Score: 3 Anesthetic Plan: other Anesthetic plan additional comments: *PACC - anesthesia choice. Beta Jayro Monitoring Plan Post Procedure Analgesic Plan Informed Consent Anesthetic risks, benefits, alternatives, personnel and consent discussed: yes. Patient / Responsible Democrat agrees to proceed: yes Patient / Surrogate agrees to blood products: Yes Prepared for Surgery: optimally prepared for surgery, pending [see comment]. labs CONSULTS: Patient does not require consults for optimization at this time Planned Anesthetic: other anesthesia choice The Following Tests/Procedures Have Been Initiated: Orders Placed This Encounter >CBC + AUTO DIFF Standing Status: Future Number of Occurrences: 1 Standing Expiration Date: 01/01/2023 >CMP Standing Status: Future Number of Occurrences: 1 Standing Expiration Date: 01/01/2023 FERRITIN BLD Standing Status: Future Number of Occurrences: 1 Standing Expiration Date: 01/01/2023 Scheduling Instructions: In preparation for this test, do not take multivitamins or dietary supplements containing biotin (vitamin B7) for at least 12 hours. Biotin is commonly found in hair, skin, and nail supplements and multivitamins. Tell your doctor if you take supplements containing biotin as part of your medication history. IRON + TIBC Standing Status: Future Number of Occurrences: 1 Standing Expiration Date: 01/01/2023 Type and Screen, 30 day Standing Status: Future Number of Occurrences: 1 Standing Expiration Date: 01/01/2023 Order Specific Question: [facility] of Planned Surgery or Procedure: Answer: Protestant acetaminophen (TYLENOL ORAL) Sig: Take by mouth as needed. mupirocin (BACTROBAN) 2 % ointment Sig: Apply 0.5 inch with cotton swab (Q-tip) to each nostril in the morning and evening for 5 days prior to and including day of surgery. Dispense: 22 g Refill: 0 Instructions Given to Patient: Instructions located in the after visit summary. Patient given verbal and written preop instructions and voices comprehension and compliance. SIGNATURE: Lilibeth Bolivar APRN.CNP PATIENT NAME: Aury Metz DATE: November 01, 2022 TIME: 8:27 AM PAGER/CONTACT #: documented in this encounter [facility] 11-01-2022 Instructions Lilibeth Bolivar APRN.CNP - 11/01/2022 8:26 AM EST PATIENT PREOPERATIVE INSTRUCTIONS Anival Ambriz MD has scheduled you for your procedure at this surgery center: [facility]: [phone] --[address] [place] [address]. On your scheduled day of surgery, please report to Patient Registration, ground floor Please read below carefully for your personalized instructions. Dietary Restrictions: - No solid food after midnight. - You may have 12 ounces of clear liquids (water, clear juices such as apple juice or gatorade, carbonated beverages, clear tea, black coffee, jello) until 2 hours before scheduled arrival at facility. No red/purple coloring and no creamer/sugar Medications: Unless instructed differently below, stay on all of your medications until your surgery. Approved medications to take the morning of surgery with a sip of water: albuterol (PROAIR) inhaler, omeprazole (PRILOSEC), ARMOUR THYROID If you start any new medications after today's visit, please contact the surgeon's office. Blood Thinning Medications: - Stop NSAIDS (Ibuprofen, Advil, Aleve, Motrin, Celebrex, Mobic, etc.) 7 days before surgery, as directed by your surgeon. - Stop Aspirin 7 days before surgery, as directed by your surgeon. - Stop Vitamin E, ALL multi-vitamins, herbals and dietary supplements 7 days before surgery. - You may take Tylenol (Acetaminophen) or any of your pain medications that do not contain aspirin or NSAIDS as needed. Important Reminders: - Candy, mints, and tobacco products are NOT permitted the morning of surgery. - Hearing aids, dentures and glasses may be worn the morning of surgery. - NO jewelry, body piercings, makeup, hairpins or contacts are to be worn the day of surgery. If you develop symptoms such as a fever, cold, or flu, or have other changes to your health within TWO DAYS of scheduled surgery or the morning of surgery, please contact the surgery center above. Personal Belongings: -Please have photo ID and insurance cards. -If you do not have a copy of advance directives on file with us, please bring a copy with you on the day of surgery. - Leave ALL valuables and money at home or with family members. For Outpatient Procedures: - YOU MUST HAVE A RESPONSIBLE ENVIRONMENTAL COORDINATOR TAKE YOU HOME. A BRANCH LEAD OR MEDICAL STAFF COORDINATOR CANNOT BE MADE A RESPONSIBLE ENVIRONMENTAL COORDINATOR. - We recommend that a responsible person stays with you overnight to take care of you. - You cannot stay in a hotel alone after outpatient surgery. You will not be permitted to have your surgery, if you do not have someone to take care of you. Arrival Time for Surgery: - The Surgery Center or hospital where you are having surgery will call the afternoon before surgery (or Friday for Friday surgery) with a scheduled arrival time. - If you have not heard by 4 pm, please contact the surgery center above. Please be aware that emergency situations arise, which may delay or change your surgical time. If this happens, we will notify you as soon as possible and regret any inconvenience. If you already have an Advance Directive, please fax a copy to [phone] or email to for it to be added to your chart. If you do not have an Advance Directive, you can find the appropriate form and more information at [email or web address]. We recommend that you complete the Advance Directive form found on the website and bring it with you the day of your surgery. It can be witnessed and scanned into your chart that day. Lilibeth Bolivar APRN.CNP documented in this encounter [facility] 09-11-2022 Miscellaneous Notes Pt called and is notified of providers results. Pt voices understanding. Joanne Snyder RN Noted that patient had CT scan done in ER 09/10 and was negative for PE (seen under External Imaging), Cannot see ER summary. Follow up as needed Pt called and states she had an ER FU with you on 09-06-22. Pt wanted you to know she did not finish the ATB this was giving her indigestion and making her nauseated She has 3 days left. Pt states her pulse ox is good. Pt still light headed, pt having problems breathing off and on. today she had from 8 am to 20 minutes ago. When she is still this is not as bad. When she is up moving it is harder to breath. Also her head is stuffy. Denies: chest pain, fever, headache Pt states when she was at ER it was mentioned her D-Dimer elevated and she wanted to know if there is something you want her to do regarding this. Please advise pt. Marina Yu LPN documented in this encounter [facility] 09-06-2022 History of Presen t illness Narrative VIRTUAL VISIT PROGRESS NOTE This is a virtual visit using [employer] video visit. It required patient-provider interaction for the medical decision making as documented below. Aury Metz is a 57 year old female seen for COVID and influenza positive illness. Was not able to breathe this AM even with CPAP. Was wheezing at night. Feeling okay after shower and taking Medrol Does not feel really sick. Just did vitals: SpO2 98% on room air BP 120/70 HR 84. Noted that was given RX for Paxlovid. Wondered about taking. Started coming down with something 6 days ago. Really bad 2 to 3 days. Has been off work the past 3 months for hip replacement. Next Friday--Xray and release to work if all okay. October to have total left knee replacement. November 18 Discussed mucinex. HISTORY REVIEWED (electronic chart updated): PAST MEDICAL HISTORY Diagnosis Date Bronchitis, not specified as acute or chronic Dizziness and giddiness Esophageal reflux 10/27/2006 High cholesterol Migraine, unspecified, with intractable migraine, so stated, without mention of status migrainosus Palpitations 06/08/07 Stress echo at [facility] and EF% is 61. RA (rheumatoid arthritis) ([facility]) Rheumatoid arthritis(714.0) 05/02/2011 PAST SURGICAL HISTORY Procedure Laterality Date ESOPHAGOSCOPY FLEX BALLOON DILAT <30 MM DIAM 2001 2005 Esophageal dilatation LAPS ABD PRTM&OMENTUM DX W/WO SPEC BR/WA SPX Laparoscopy LIG/TRNSXJ FLP TUBE ABDL/VAG APPR UNI/BI Tubal ligation TOTAL KNEE REPLACEMENT Right 07/02/2021 FAMILY HISTORY Problem Relation Age of Onset Heart Mother murmur COPD Mother other (High Cholesterol) Mother other (vocal cord paralysis ) Mother Hypertension Father Arthritis Maternal Grandmother RA Diabetes Brother Rheumatologic disease Brother Heart Brother Heart Brother mi Diabetes Brother Lipids Sister Breast Cancer Son 18 people on Mom's side of family other (hodgkin) Son Social History Tobacco Use Smoking status: Never Smokeless tobacco: Never Vaping Use Vaping Use: Never used Substance Use Topics Alcohol use: No Drug use: No Current Outpatient Medications Medication Sig methotrexate sodium 25 mg/mL soln Inject 0.6 mL subcutaneously one time a week. folic acid 1 mg tablet Take 1 tablet by mouth once daily. celecoxib (CELEBREX) 100 mg capsule Take 1 capsule by mouth twice daily. thyroid, pork, (ARMOUR THYROID) 60 mg tablet Take 1 tablet by mouth once daily. sarilumab (KEVZARA) 200 mg/1.14 mL pnij Inject 200 mg subcutaneously every 2 weeks. aspirin, enteric coated (ECOTRIN LOW STRENGTH) 81 mg EC tablet Take 1 tablet by mouth twice daily with meals for 28 days. omeprazole (PRILOSEC) 20 mg capsule Take 1 capsule by mouth once daily. gabapentin (NEURONTIN) 100 mg capsule Take 3 capsules by mouth daily at bedtime. (Patient taking differently: Take 300 mg by mouth daily at bedtime. Pt not currently taking while taking oxycodone (06/20/22)) CPAP Pt with known NIKO confirmed by HSAT. AHI normalized with PAP. Has PAP device (Airsense 10 ([id number])). However, not receiving masks through current DME. Requests change. NIKO sx resolved with PAP. Please fit with Dreamwear under nose FFM (not pillows). Needs supplies. Lifetime supplies. Please provide us download in 4 weeks. Cetirizine (ZYRTEC) 10 mg cap Take 1 capsule by mouth once daily as needed (allergies). No current facility-administered medications for this visit. ALLERGIES Allergen Reactions Cephalexin Anaphylaxis, Other: See Comments Throat swelling. Has tolerated augmentin 850mg as op after this episode Aciphex [Rabeprazol* Other: See Comments Chest pain Bactrim [Sulfametho* Vomiting Carafate [Sucralfat* Vomiting Darvocet-N 100 [Pro* Other: See Comments dizzy severe pain in head Erythromycin Vomiting Iodinated Contrast * Shortness of Breath Vancomycin Itching Scalp itchy REVIEW OF SYSTEMS: GENERAL: no fever HEENT: no ear pain, no sinus pressure RESPIRATORY: cough as above without SOB/chest pains, occasionally yellow sputum production As noted in HPI PHYSICAL EXAMINATION: VIDEO EXAM: (if completed, performed via video enabled technology) GENERAL: alert and appropriate, in no distress, well-hydrated, well nourished, and happy, smiling, interactive HEAD: normocephalic, no abnormality or lesion noted EYES: no injection and visual acuity is grossly normal RESPIRATORY: breathing non-labored ASSESSMENT/PLAN: 1. COVID-19 virus infection - ICD9: 079.89, ICD10: U07.1 (primary diagnosis) Tested positive today. Day 5 of symptoms. Discussed pros and cons and risks and benefits of taking med At this time, she is not comfortable with taking as she worries about adverse effects of med. Further evaluation and treatment as indicated. Return to work depends on course of illness. Will let me know next week if needs work excuse. 2. Influenza A - ICD9: 487.1, ICD10: J10.1 Acute infection noted. Further evaluation and treatment as indicated. Monitor for red flag symptoms for need to go back to ER. Has pulse ox. 3. Acute asthmatic bronchitis - ICD9: 493.90, ICD10: J45.909 Add albuterol Finish medrol dosepak. Further evaluation and treatment as indicated. - ALBUTEROL SULFATE HFA 90 MCG/ACTUATION AEROSOL INHALER - INHALATIONAL SPACING DEVICE There are no Patient Instructions on file for this visit. 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 Take Celebrex 100 mg, 1 tablet, twice daily as needed for pain. Continue methotrexate injection weekly with daily folic acid for now. I will message you about Dr. Harris's recommendations for that medication today. Start Kevzara injection once every two weeks. Stop Kevzara injections 2-3 weeks before you surgery. Lab work again in 4 weeks after starting Kevzara. Orders will be placed and ready for you. Then lab work every three months after that. Consult to PT placed for the shoulder blade winging. Information given about Minoo Booker. Number is [phone]. Bone mineral density scan ordered. You may schedule at [phone]. BONE MINERAL DENSITY PATIENT INSTRUCTIONS ======== Bone mineral density testing measures the amount of calcium in certain parts of your bones. This information determines how strong your bones are. The test is used to detect osteoporosis, a disease in which the bone's mineral content and density are low, increasing a person's risk of fractures. The lumbar spine (lower back) and the hip are the skeletal sites usually examined. For the test, remember that: 1. You cannot take this test if you are . 2. Eat a normal diet on the day of the test. 3. Take your medications as you normally would. 4. DO NOT take calcium supplements (such as Tums) for 24 hours before the test. 5. On the day of the test, leave valuables (jewelry or credit cards) at home. 6. The test should be performed prior to oral, rectal or IV contrast studies, or at least 7 days after any of these studies. For the test, you may be asked to wear a hospital gown. You will lie on your back, on a padded table, in a comfortable position. Generally, you can resume your usual activities immediately. documented in this encounter [facility] 08-28-2022 History of Presen t illness Narrative Images from the original note were not included. Rheumatology Outpatient Clinic Date of Service: 08/28/2022 Patient: Aury Metz Medical Record: [id number] Primary Care Physician: Timbo Bright MD Last Rheumatology visit: 06/13/22 (with Mino Harris) History of Present Illness Aury Metz is a 57 year old White female who presents on 08/28/2022 for an in-person visit for evaluation of Rheumatoid Arthritis. Aury is RF positive - 48 (01/11/2012) and CCP negative - 20 (05/01/2011). Her most recent KENY was positive (05/05/2013). She does not have erosive disease. There are no rheumatoid nodules present. Aury has mild joint swelling. She reports morning stiffness . HISTORY OF PRESENT ILLNESS 57 year old with RF+, CCP negative (intermittent +CCP in the past) Nonerosive Past treatment: Plaquenil: LE numbness Methotrexate: Became ineffective after 7 years Arava: Rash Humira: SOB Enbrel: ?? Not sure why it was stopped. She thinks she only had one injection. Cymbalta: mind could not shut off. Xeljanz: Insurance would not cover, despite an appeal. S/p R TKR 2020 INTERVAL HISTORY 06/13/22 - RA AM stiffness > 3 hours R hip painful as well as L knee MTX on hold due to upcoming R THR Past DMARDs Humira effective but caused SOB ARAVA rash 08/28/22 - Patient presents for follow-up. She is a patient of Dr. Harris's following for seropositive, nonerosive rheumatoid arthritis. She is currently on subcutaneous methotrexate 15 mg weekly with daily folic acid and was recently prescribed Kevzara. She has received the shipment, but has not initiated injections yet due to fear of side effects, specifically risk of infection. She additionally takes Celebrex 200 mg, once daily which is helpful for her pain. She reports symptoms are the same as last visit. Joints involved include the shoulders and arms. She reports burning in the arms. She reports joint swelling in the wrist as well as her left knee. She reports morning joint stiffness for 8 hours in the morning. She reports she feels deconditioned due to pain and lack of exercise. Also reporting chronic shoulder pain domonique-scapularly and reports she was told there was something wrong with her scapulas. Patient had right total hip replacement without complication. She is pending left total knee replacement in November 2022. Rheumatoid Arthritis History Rheumatoid Factor Positive Anti CCP negative No erosive No rheumatoid nodules Morning stiffness Joint Swelling Joint replacement Joint Date Laterality Comment Knee 07/02/21 Right No other RA-related surgery Extra-Articular Features / Comorbidities Anemia Rheum/Ortho Arthrocentesis Injections (last 5) Some values may be hidden. Unless noted otherwise, only the newest values recorded on each date are displayed. Injection History 10/05/20 07/02/21 06/18/22 Medication - Right 40 mg methylPREDNISolone acetate 40 mg/mL Medication - Left 40 mg methylPREDNISolone acetate 40 mg/mL Medication bupivacaine-dextrose 0.75 % (7.5 mg/mL) injection (SENSORCAINE MPF SPINAL), 2 mL bupivacaine-dextrose 0.75 % (7.5 mg/mL) injection (SENSORCAINE MPF SPINAL) - INTRASPINAL 1.8 mL - 06/18/2022 9:45:00 AM Location knee Knee Site bilateral knee joints Some values recorded on this date have been omitted. Patient-Entered Data PAIN EVALUATION 08/28/2022 1059 Pain Level: 9 Pain Location: -- Both Knees , Shoulders Description: Burning;Sharp Duration Units: Unknown Frequency: Continuous Intervention/Comfort measure: Medication PROMIS Assessments PROMIS Assessments 02/16/2022 05/25/2022 08/26/2022 Physical Health Percentile 31 % 10 % 15 % Mental Health Percentile 26 % 26 % 26 % Pain Score 3 3 3 Pain Interference Percentile 4 % - 4 % Fatigue Percentile 8 % - 24 % Physical Function Percentile 5 % - 5 % RAPID 3 Gonzalez Activities of Daily Living 08/26/2022 9:02 PM 02/16/2022 6:16 PM 12/28/2020 7:19 AM First answer obtained - 06/19/2020 9:12 AM Dress self? With SOME difficulty With SOME difficulty Without ANY difficulty Without ANY difficulty Get in and out of bed? Without ANY difficulty With SOME difficulty Without ANY difficulty With SOME difficulty Walk outdoors? Without ANY difficulty With SOME difficulty With SOME difficulty Without ANY difficulty Wash and dry body? With SOME difficulty With SOME difficulty Without ANY difficulty Without ANY difficulty Get in and out of car? With SOME difficulty With SOME difficulty With SOME difficulty With SOME difficulty RAPID 3 Disease Activity Weighed Score Levels: 0 - 1: Near Remission 1.3 - 2.0: Low Severity 2.3 - 4.0: Moderate Severity 4.3 - 10.0: High Severity RAPID-3 Weighed Score 12/28/2020 02/16/2022 08/26/2022 RAPID 3 Weighed Score - - - RAPID 3 Weighed Score 3.88 (Moderate Severity (MS)) 6.06 (High Severity (HS)) 4.61 (High Severity (HS)) Review of Systems Review of Systems CONSTITUTION: Negative for: Fever and Recent weight change HEENT: Negative for: Nosebleeds, Mouth sores, Trouble swallowing and Dry mouth RESPIRATORY: Negative for: Cough, Shortness of breath and Pain with breathing GASTROINTESTINAL: Positive for: Heartburn and Abdominal pain Negative for: Melena and Diarrhea MUSCULOSKELETAL: Positive for: Arthralgias, Myalgias, Muscle weakness, Joint swelling and Morning Joint Stiffness NEUROLOGICAL: Negative for: Headaches, Numbness and Memory loss SKIN: Negative for: Rash, Skin changes, Hair loss and Nail changes EYES: Positive for: Eye dryness and Visual disturbance Negative for: Eye pain and Eye redness CARDIOVASCULAR: Negative for: Chest pain and Leg swelling GENITOURINARY: Negative for: Dysuria and Hematuria HEMATOLOGIC/LYMPHATIC: Negative for: Swollen glandsAll other reviewed and negative other than HPI. Past Medical History PAST MEDICAL HISTORY Diagnosis Date Bronchitis, not specified as acute or chronic Dizziness and giddiness Esophageal reflux 10/27/2006 High cholesterol Migraine, unspecified, with intractable migraine, so stated, without mention of status migrainosus Palpitations 06/08/07 Stress echo at [facility] and EF% is 61. RA (rheumatoid arthritis) (HCC) Rheumatoid arthritis(714.0) 05/02/2011 Past Surgical History PAST SURGICAL HISTORY Procedure Laterality Date ESOPHAGOSCOPY FLEX BALLOON DILAT <30 MM DIAM 2001 2005 Esophageal dilatation LAPS ABD PRTM&OMENTUM DX W/WO SPEC BR/WA SPX Laparoscopy LIG/TRNSXJ FLP TUBE ABDL/VAG APPR UNI/BI Tubal ligation TOTAL KNEE REPLACEMENT Right 07/02/2021 Family History FAMILY HISTORY Problem Relation Age of Onset Heart Mother murmur COPD Mother other (High Cholesterol) Mother other (vocal cord paralysis ) Mother Hypertension Father Arthritis Maternal Grandmother RA Diabetes Brother Rheumatologic disease Brother Heart Brother Heart Brother mi Diabetes Brother Lipids Sister Breast Cancer Son 18 people on Mom's side of family other (hodgkin) Son Social History Social History Tobacco Use Smoking status: Never Smokeless tobacco: Never Vaping Use Vaping Use: Never used Substance Use Topics Alcohol use: No Drug use: No Current Medications Current Outpatient Medications on File Prior to Visit Medication Sig thyroid, pork, (ARMOUR THYROID) 60 mg tablet Take 1 tablet by mouth once daily. sarilumab (KEVZARA) 200 mg/1.14 mL pnij Inject 200 mg subcutaneously every 2 weeks. gabapentin (NEURONTIN) 100 mg capsule Take 3 capsules by mouth daily at bedtime. (Patient taking differently: Take 300 mg by mouth daily at bedtime. Pt not currently taking while taking oxycodone (06/20/22)) CPAP Pt with known NIKO confirmed by HSAT. AHI normalized with PAP. Has PAP device (Airsense 10 ([id number])). However, not receiving masks through current DME. Requests change. NIKO sx resolved with PAP. Please fit with Dreamwear under nose FFM (not pillows). Needs supplies. Lifetime supplies. Please provide us download in 4 weeks. Cetirizine (ZYRTEC) 10 mg cap Take 1 capsule by mouth once daily as needed (allergies). aspirin, enteric coated (ECOTRIN LOW STRENGTH) 81 mg EC tablet Take 1 tablet by mouth twice daily with meals for 28 days. omeprazole (PRILOSEC) 20 mg capsule Take 1 capsule by mouth once daily. No current facility-administered medications on file prior to visit. Labs CBC Latest Ref Rng & Units 03/19/2022 05/31/2022 06/19/2022 08/28/2022 WBC 3.70 - 11.00 k/uL 7.31 8.75 8.25 8.84 HEMOGLOBIN 11.5 - 15.5 g/dL 12.2 10.8(L) 8.8(L) 11.8 HEMOGLOBIN, RUSSELL 11.5 - 15.5 g/dL - - - - HEMATOCRIT 36.0 - 46.0 % 36.3 32.6(L) 28.0(L) 37.2 PLATELETS 150 - 400 k/uL 321 433(H) 295 409(H) ABS NEUT (ANC) 1.45 - 7.50 k/uL 4.51 5.75 - 5.99 ABS NEUT, RUSSELL 1.45 - 7.50 k/uL - - - - ABS LYMP, RUSSELL 1.00 - 4.00 k/uL - - - - ABS LYMPH 1.00 - 4.00 k/uL 2.08 2.16 - 1.93 CMP Latest Ref Rng & Units 03/19/2022 05/31/2022 06/19/2022 08/28/2022 SODIUM 136 - 144 mmol/L 140 138 140 140 SODIUM, RUSSELL 136 - 145 mmol/L - - - - SODIUM, RUSSELL 136 - 145 mmol/L - - - - POTASSIUM 3.7 - 5.1 mmol/L 3.8 3.9 4.1 5.2(H) POTASSIUM, RUSSELL 3.5 - 5.1 mmol/L - - - - CHLORIDE 97 - 105 mmol/L 101 101 108(H) 103 CHLORIDE, RUSSELL 98 - 107 mmol/L - - - - CO2 22 - 30 mmol/L 26 25 28 27 CO2, RUSSELL 21.0 - 32.0 mmol/L - - - - GLUCOSE 74 - 99 mg/dL 91 91 102(H) 84 GLUCOSE (U), RUSSELL NEGAT mg/dL - - - - GLUCOSE, RUSSELL 70 - 99 mg/dL - - - - BUN 7 - 21 mg/dL 10 8 11 12 BUN, RUSSELL 7 - 18 mg/dL - - - - CREATININE 0.58 - 0.96 mg/dL 0.57(L) 0.54(L) 0.57(L) 0.57(L) CREATININE, RUSSELL 0.6 - 1.0 mg/dL - - - - CALCIUM, RUSSELL 8.5 - 10.1 mg/dL - - - - CALCIUM, TOTAL 8.5 - 10.2 mg/dL 9.4 9.3 8.4(L) 10.1 AST 13 - 35 U/L 22 18 - 24 AST, RUSSELL 15 - 37 U/L - - - - ALT 7 - 38 U/L 16 14 - 22 ALT, RUSSELL 30 - 65 U/L - - - - ALKALINE PHOSPHATASE 34 - 123 U/L 119 140(H) - 138(H) ESR, WSR Latest Ref Rng & Units 10/05/2020 01/04/2021 02/19/2022 08/28/2022 WSR 0 - 20 mm/hr 20 49(H) 40(H) 65(H) SED RATE, RUSSELL 0 - 20 mm/hr - - - - CRP Latest Ref Rng & Units 10/05/2020 01/04/2021 02/19/2022 08/28/2022 CRP <0.9 mg/dL 0.2 0.7 0.7 2.7(H) C3, C4 Latest Ref Rng & Units 05/05/2013 C3 68 - 260 mg/dL 111 C4 12 - 46 mg/dL 17 RF and CCP Latest Ref Rng & Units 12/12/2010 05/01/2011 01/11/2012 RHEUMATOID FACTOR <20 IU/mL 99(H) 57(H) 48(H) CCP ANTIBODY, IGG Units - 20 - Hepatitis Screen Latest Ref Rng & Units 05/01/2011 06/19/2016 10/08/2017 04/22/2018 HEPBCOTOL Negative Negative Negative Negative Negative HEPSABQ Negative Positive(A) Positive(A) Positive(A) Positive(A) HEPCABEIA Negative Negative Negative Negative Negative HBSAGR Negative Negative Negative Negative Negative TB Screen 06/19/2016 10/08/2017 07/29/2018 08/13/2022 TBGINT No evidence of current or previous infection with Mycobacterium tuberculosis. No evidence of current or previous infection with Mycobacterium tuberculosis. No evidence of current or previous infection with Mycobacterium tuberculosis. Infection with M. tuberculosis complex is unlikely. If latent tuberculosis infection is highly suspected, a negative result does not rule out the infection. Specimens from immunocompromised patients and those <5 years of age may show false negative results. In case of a contact investigation, please repeat 8-12 weeks after a known exposure. TBGRES Negative Negative Negative Negative Antibodies Latest Ref Rng & Units 12/12/2010 05/05/2013 KENY NEGAT Negative Negative KENY BY EIA <1.5 OD Ratio 1.5(H) 1.7(H) KENY TITER NEGAT Negative Negative KENY PATTERN - Not applicable for negative result. Not applicable for negative result. DNA ANTIBODY W/CONFIRMATION <30 IU/mL - <12 COSMETIC MAKER ANTIBODY <1.0 AI - <0.2 SSA ANTIBODY <1.0 AI - 0.2 SSB ANTIBODY <1.0 AI - 0.3 SHEKHAR-1 ANTIBODY, IGG <1.0 AI - <0.2 RIBOSOMAL COSMETIC MAKER <1.0 AI - 0.3 SM ANTIBODY <1.0 AI - <0.2 SCLERODERMA AB, IGG <1.0 AI - <0.2 SCL-70 ABS, EIA <1.0 AI - <0.2 CENTROMERE AB <1.0 AI - <0.2 CHROMATIN ANTIBODY <1.0 AI - <0.2 ANCA Latest Ref Rng & Units 03/29/2011 MYELOPEROXIDASE <480 pmol/L 336 Urinalysis Latest Ref Rng & Units 02/23/2020 03/15/2020 04/17/2020 02/19/2022 PROTEIN, URINE Negative - - Negative Negative PROTEIN (U), RUSSELL NEGAT mg/dL - - - - PROTEIN UA (POCT) Negative mg/dL Negative Negative - - RBC, URINE 0-3 /HPF - - - 0-3 /HPF RBC, URINE, RUSSELL /hpf - - - - Imaging Last XR Hand/Finger - Impression Only XR HAND/WRIST SURVEY ARTHRITIS 1V PA BILATERAL Exam End: 02/19/2022 3:23 PM (Final result) Impression: IMPRESSION: Degenerative changes, no erosions. Data Collector: VIVIANA Transcribe Date/Time: Feb 19 2022 4:11P ... Last MRI Hand - Impression Only No resulted procedures found. Last XR Chest - Impression Only XR CHEST 2V FRONTAL/LAT Exam End: 11/17/2018 10:06 AM (Final result) Impression: IMPRESSION: No acute radiographic abnormality. Data Collector: VIVIANA ... Last XR Cervical Spine - Impression Only No resulted procedures found. Health Maintenance DEPRESSION ASSESSMENT Never done ANNUAL PCP TEAM CHRONIC DISEASE VISIT due on 01/31/2022 INFLUENZA(1) due on 05/23/2022 COVID-19 VACCINE(1) due on 09/06/2022 PNEUMOCOCCAL(1 - PCV) due on 09/06/2022 MAMMOGRAM due on 04/19/2023 DTAP,TDAP,TD(2 - Tdap) due on 04/19/2023 PAP TESTING due on 04/19/2023 HPV TESTING due on 04/19/2023 COLORECTAL CANCER SCREENING due on 04/19/2023 SHINGRIX VACCINE(1 of 2) due on 04/19/2023 DIABETES SCREEN due on 08/28/2025 LIPID SCREEN due on 08/28/2027 SPIROMETRY Completed HEPATITIS C SCREENING Completed HIV SCREENING Completed Physical Exam GENERAL APPEARANCE: Well groomed. Alert and oriented x 3. In no distress. VITAL SIGNS: BP 107/65 Pulse 83 Temp (Src) 97.4 (Temporal) Ht 5' 5.5 (1.66m) Wt 144 lb 9.6 oz (65.6kg) LMP 06/15/2015 BMI 23.69 kg/(m^2). Physical Exam Constitutional: General: She is not in acute distress. Appearance: Normal appearance. She is normal weight. She is not ill-appearing, toxic-appearing or diaphoretic. HENT: Head: Normocephalic and atraumatic. Right Ear: External ear normal. Left Ear: External ear normal. Nose: Nose normal. Mouth/Throat: Mouth: Mucous membranes are moist. Pharynx: Oropharynx is clear. No oropharyngeal exudate or posterior oropharyngeal erythema. Eyes: General: No scleral icterus. Extraocular Movements: Extraocular movements intact. Conjunctiva/sclera: Conjunctivae normal. Pupils: Pupils are equal, round, and reactive to light. Cardiovascular: Rate and Rhythm: Normal rate and regular rhythm. Pulses: Normal pulses. Heart sounds: Normal heart sounds. Pulmonary: Effort: Pulmonary effort is normal. No respiratory distress. Breath sounds: Normal breath sounds. No stridor. No wheezing, rhonchi or rales. Abdominal: Palpations: Abdomen is soft. Tenderness: There is no abdominal tenderness. There is no guarding. Musculoskeletal: Comments: All joints without effusion unless stated. Muscle Strength 5/5 and symmetric unless otherwise specified. Shoulders FROM Scapular winging present. Elbows FROM Wrists FROM with mild B/L swelling and tenderness Hands FROM without synovitis. Scattered TTP to the MCPs and PIPs bilaterally. Hand strength is 5/5 and symmetric on resisted finger separation and hand direct mail coordinator Knees FROM Ankles FROM No MTP squeeze tenderness Skin: General: Skin is warm and dry. Coloration: Skin is not jaundiced. Findings: No bruising, erythema, lesion or rash. Neurological: General: No focal deficit present. Mental Status: She is alert and oriented to person, place, and time. Motor: No weakness. Gait: Gait normal. Psychiatric: Mood and Affect: Mood normal. Behavior: Behavior normal. Thought Content: Thought content normal. Judgment: Judgment normal. Impression Diagnoses: (M05.79) Rheumatoid arthritis involving multiple sites with positive rheumatoid factor (HCC) (primary encounter diagnosis) (Z79.899) High risk medication use (Z78.0) Asymptomatic postmenopausal status (M89.9) Scapular dysfunction 57 year old woman with rheumatoid arthritis, +RF, CCP neg, no erosions. Works from home loves her job Knee DJD s/p R knee replacement 06/2021 R THR 06/18/22 L TKR planned for 11/2022 Takes MTX 0.6 mL (15 mg) weekly, daily folic acid, and just prescribed Kevzara. Reassured patient today that risk of infection on Kevzara is the same as all previous biologic medications used and strongly encouraged addition of medication to prevent inflammatory joint damage and capture patient's symptoms. Patient verbalized understanding and is agreeable to medication. Patient with scapular winging on exam today. Recommend PT. Patient disease activity exhibits improvement on medication of 50 % since initial visit based on the following means of evaluation: PROMIS-10 Global Physical Function T-Score, pain score, total # of swollen joints, total # of tender joints Plan Orders this visit: Office Visit on 08/28/22 DXA-AXIAL SKELETON CBC + DIFF COMP METABOLIC PANEL SED RATE WESTERGREN C-REACTIVE PROTEIN (CRP) LIPID PANEL, NONFASTING CONSULT TO PHYSICAL THERAPY celecoxib (CELEBREX) 100 mg capsule methotrexate sodium 25 mg/mL soln folic acid 1 mg tablet RA refractory to many DMARDs Also with fibromyalgia which adds complexity MTX 0.6 mL (15 mg) weekly with daily folic acid Patient reassured and agreed to begin Kevzara injections. Could consider de-escalation of MTX after stable on Kevzara Monitoring labs today. Patient requesting lipid panel, order placed. Results to be managed by PCP. Patient also requesting DEXA, order placed. Patient to schedule. Consult to PT for scapular winging. Return in about 3 months (around 11/26/2022). I spent a total of 30 minutes on the date of the service which included preparing to see the patient, [id number] patient care, completing clinical documentation, obtaining and/or reviewing separately obtained history, performing a medically appropriate examination, counseling and educating the patient/family/caregiver, and ordering medications, tests, or procedures. Peace Hunt PA-C Orthopaedic & Rheumatologic [facility] Date: August 28, 2022 Time: 11:00 AM documented in this encounter [facility] 08-14-[address] Harris called and asked that I contact the pharm to proceed w kevzara. I did so then noticed the msg below Called [facility] specialty pharmacy, per Dr. Harris medication OK to be started and shipped to patient. [facility] will reach out to patient to schedule delivery. Patient was made aware. Sonya Monsalve RN Patient has been identified by name and date of : Yes . Patient calling for :patient update and medication issue. The called and stated that she completed the TB test and allergy test and her design coordinator said its ok for her to start the kevzara medication. Pharmacy has been updated: Yes . Return call needed: Patient is expecting a call back. Can be reached at phone number listed below.. Patient can be reached at : [phone] documented in this encounter [facility] 08-13-2022 History of Presen t illness Narrative [facility] ALLERGY & IMMUNOLOGY CONSULT Patient Name: Aury Metz PRIMARY CARE PHYSICIAN: Timbo Bright MD REASON FOR CONSULT: Adverse reaction to contrast REQUESTING PHYSICIAN: Mino Harris MD My final recommendations will be communicated to the requesting health care provider by way of the shared medical record for internal providers or letter via the [facility] [employer] for external providers. CHIEF COMPLAINT: Patient presents with: Contrast Allergy HISTORY OF PRESENT ILLNESS: Aury Metz is a 57 year old female with a history of rheumatoid arthritis who presents with adverse reaction to contrast: Child Nutrition Director Dr. Harris would like to start [facility] speciality pharmacy flagged medication due to cross-reactivity with allergy to iodinated contrast. Per pharmacist, the medication does not contain iodine. With regards to history of adverse reaction to contrast, she states it was an CT scan with and without contrast >20 years ago- she developed shortness of breath. This was her first time receiving iodine contrast. She has a history of adverse reaction to bactrim and cephalexin Cephalexin: shortness of breath Bactrim: emesis Humira: waxing and waning shortness of breath- not present immediately after injection. 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 Does not use Albuterol Hx of eczema: No No known food allergies. No systemic rxn to stinging insects. No known hx of latex glove reactions. PAST MEDICAL HISTORY Diagnosis Date Bronchitis, not specified as acute or chronic Dizziness and giddiness Esophageal reflux 10/27/2006 High cholesterol Migraine, unspecified, with intractable migraine, so stated, without mention of status migrainosus Palpitations 06/08/07 Stress echo at [facility] and EF% is 61. RA (rheumatoid arthritis) (HCC) Rheumatoid arthritis(714.0) 05/02/2011 ACTIVE PROBLEM LIST Awareness of Heartbeats Migraine, Unspecified, With Intractable Migraine, So Stated, Without Mention of Status Migrainosus Gastroesophageal Reflux Disease Anemia Emotional Lability 1.1 Migraine without aura, not intractable [346.10] Intractable Migraine With Aura Without Status Migrainosus 1.5.1 Chronic migraine [346.71] Rheumatoid Arthritis of Multiple Sites Without Organ Or System Involvement With Positive Rheumatoid Factor (Hcc) Drug Allergy Allergy to Sulfa Drugs Rash and Nonspecific Skin Eruption Hypothyroidism Moderate Obstructive Sleep Apnea Acute Pain of Both Knees Knee Joint Stiffness, Bilateral Difficulty Walking Hip Stiffness, Unspecified Laterality Right Lumbar Radiculitis Lumbar Spondylosis Chronic Right-Sided Low Back Pain With Right-Sided Sciatica Rheumatoid Arthritis Involving Both Knees With Positive Rheumatoid Factor (Hcc) Exercise-Induced Asthma Status Post Knee Replacement Raynaud Phenomenon Calcific Tendinitis of Right Shoulder Cervical Radiculopathy Disorder of Acromioclavicular Joint Personal History of Rheumatoid Arthritis History of Hypothyroidism Fibromyalgia 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 Mindy (Iron Deficiency Anemia) Status Post Total Replacement of Right Hip PAST SURGICAL HISTORY Procedure Laterality Date ESOPHAGOSCOPY FLEX BALLOON DILAT <30 MM DIAM 2001 2005 Esophageal dilatation LAPS ABD PRTM&OMENTUM DX W/WO SPEC BR/WA SPX Laparoscopy LIG/TRNSXJ FLP TUBE ABDL/VAG APPR UNI/BI Tubal ligation TOTAL KNEE REPLACEMENT Right 07/02/2021 FAMILY HISTORY Problem Relation Age of Onset Heart Mother murmur COPD Mother other (High Cholesterol) Mother other (vocal cord paralysis ) Mother Hypertension Father Arthritis Maternal Grandmother RA Diabetes Brother Rheumatologic disease Brother Heart Brother Heart Brother mi Diabetes Brother Lipids Sister Breast Cancer Son 18 people on Mom's side of family other (hodgkin) Son Social History Tobacco Use Smoking status: Never Smokeless tobacco: Never Vaping Use Vaping Use: Never used Substance Use Topics Alcohol use: No Drug use: No ALLERGIES: ALLERGIES Allergen Reactions Cephalexin Anaphylaxis, Other: See Comments Throat swelling. Has tolerated augmentin 850mg as op after this episode Aciphex [Rabeprazol* Other: See Comments Chest pain Bactrim [Sulfametho* Swelling eyes swell Carafate [Sucralfat* Vomiting Darvocet-N 100 [Pro* Other: See Comments dizzy severe pain in head Erythromycin Vomiting Iodinated Contrast * Shortness of Breath Vancomycin Itching Scalp itchy CURRENT OUTPATIENT MEDICATIONS: thyroid, pork, (ARMOUR THYROID) 60 mg tablet Take 1 tablet by mouth once daily. sarilumab (KEVZARA) 200 mg/1.14 mL pnshaquille Inject 200 mg subcutaneously every 2 weeks. omeprazole (PRILOSEC) 20 mg capsule Take 1 capsule by mouth once daily. gabapentin (NEURONTIN) 100 mg capsule Take 3 capsules by mouth daily at bedtime. (Patient taking differently: Take 300 mg by mouth daily at bedtime. Pt not currently taking while taking oxycodone (06/20/22)) CPAP Pt with known NIKO confirmed by HSAT. AHI normalized with PAP. Has PAP device (Airsense 10 (5-45ftV3C)). However, not receiving masks through current DME. Requests change. NIKO sx resolved with PAP. Please fit with Dreamwear under nose FFM (not pillows). Needs supplies. Lifetime supplies. Please provide us download in 4 weeks. Cetirizine (ZYRTEC) 10 mg cap Take 1 capsule by mouth once daily as needed (allergies). aspirin, enteric coated (ECOTRIN LOW STRENGTH) 81 mg EC tablet Take 1 tablet by mouth twice daily with meals for 28 days. REVIEW OF SYSTEMS: HEENT: negative RESPIRATORY: No cough, hemoptysis, recent chest infection, wheezing CONSTITUTIONAL: No acute distress. No weight loss or gain, no fevers or chills CARDIOVASCULAR: negative for chest pain, leg swelling or palpitations. GASTROINTESTINAL: Negative for abdominal discomfort, No blood in stools or black stools MUSCULOSKELETAL: negative for joint pain or swelling, back pain or muscle pain. NEUROLOGIC:Negative for focal numbness or weakness, headaches and dizziness or syncope. DERM/SKIN: no new rashes, hives, or skin eruptions. PSYCHIATRIC: Negative for sleep disturbance, mood disorder and recent psychosocial stressors HEMATOLOGIC/LYMPHATIC/IMMUNOLOGIC :Negative for cold or heat intolerance, polyuria, polydipsia and goiter. PHYSICAL EXAM: BP 113/60 Pulse 87 Temp (Src) 97.1 (Temporal Artery) Resp 16 Ht 5' 5.5 (1.66m) Wt 145 lb (65.8kg) SpO2 97% LMP 06/15/2015 BMI 23.75 kg/(m^2). General appearance: Well appearing, alert, in no acute distress, well-hydrated, well nourished. Eyes: no scleral icterus, PERRLA, EOMS, no conjunctivitis Oropharynx: Lips, mucosa, and tongue normal, teeth and gums normal, oropharynx normal Respiratory: Lungs clear to auscultation. No wheezing, rhonchi, rales Cardiovascular: RRR without murmur, gallop, or rubs. No ectopy Gastroenterology: normal appearing abdomen on inspection Musculoskeletal: No joint pain, muscle weakness, or impaired gait Integumentary: Negative for lesions, rash, and itching. Psychiatric: Alert and oriented x 3. No mood disorders noted, calm affect. DATA: SPIROMETRY - BASELINE AND POST DILATOR ([id number]) - ordered on 02/12/19 [facility] [address] [place] [address] Test Date: 2019-02-22 Pat Name: AURY METZ Department: Room: Gender: Female Log Hooker: : 1965 Requested By: Order Number: [id number] Reading MD: Prem Lyons Interpretive Statements ATS repeatability standards for spirometry met.4 puffs of albuterol (360mcg) delivered by MDI via valved holding chamber, HR pre 91, HR post 91. Medications and allergies were reviewed for possible drug interactions per policy MM-102. No Contraindications or sensitivities were noted.All lung volume repeatability criteria met.ATS acceptability and repeatability standards for DLCO met.DLCO is not hemoglobin corrected. IMPRESSION: Spirometry is normal. There is no significant bronchodilator response. Clinical improvement following bronchodilator therapy may occur even if there is no spirometric improvement. The TLC, RV and RV/TLC are normal. The diffusing capacity is normal. Electronically Signed On 03-01-2019 18:29:01 EDT by Prem Lyons [facility] [id number] [place], [place] [address] PFT Lab Report Name: AURY METZ A ID: [id number] Date: 02/22/19 Physician: Kaleigh PACHECO Age: 54 Height(in): 64.6 Weight(lb): 162 Gender: Female Race: Diagnosis: Medication Set 1: Dyspnea Rest: No Dyspnea Exercise: No Cough: No Persistent: No Productive (cc): Smoker: No How L nicanor: Stopped: Cigarettes: No Log Hooker: Kim Vick RCP Temp: 19 PBar: 740 PF Reference: ######## Spirometry Hb: gm/dL Ref Pre Pre Post Post Post Elsie % Ref Elsie % Ref % Chg FVC Liters 3.48 3.55 102 3.47 100 -2 FEV1 Liters 2.71 2.72 100 2.70 100 -1 FEV1/FVC % 79 77 78 XSB24-25% L/sec 2.55 2.36 92 2.55 100 8 [id number] L/sec 2.75 2.36 86 2.40 87 2 PEF L/sec 6.58 5.95 90 6.35 96 7 JEU442% Sec 7.79 6.46 -17 MVV L/min 109 f BPM Lung Volumes TLC Liters 5.14 5.37 105 VC Liters 3.48 3.5 5 102 IC Liters 2.15 2.73 127 FRC N2 Liters 2.90 ERV Liters 1.07 0.65 60 RV Liters 1.94 1.82 94 RV/TLC % 38 34 Diffusing Capacity DLCO mL/mmHg/min 22.3 24.1 108 DL Adj mL/mmHg/min 22.3 24.1 108 DLCO/VA mL/mHg/min/L 4.48 4.84 108 DL/VA Adj mL/mHg/min/L 4.48 4.84 108 VA Liters 4.98 4.99 100 IVC Liters 3.24 91 BHT Sec 10.33 Resistance Raw cmH2O/L/sec 1.40 2.71 193 sGaw L/s/cmH2O/L 0.261 0.118 45 Respiratory Muscle Force PI max cmH2O 75 PE max cmH2O 140 null CBC Latest Ref Rng & Units 03/19/2022 05/31/2022 06/19/2022 WBC 3.70 - 11.00 k/uL 7.31 8.75 8.25 RBC 3.90 - 5.20 m/uL 3.94 3.64(L) 2.98(L) HEMOGLOBIN 11.5 - 15.5 g/dL 12.2 10.8(L) 8.8(L) HEMOGLOBIN, RUSSELL 11.5 - 15.5 g/dL - - - HEMATOCRIT 36.0 - 46.0 % 36.3 32.6(L) 28.0(L) MCV 80.0 - 100.0 fL 92.1 89.6 94.0 MCV, RUSSELL 80.0 - 100.0 fL - - - MCH 26.0 - 34.0 pg 31.0 29.7 29.5 MCH, RUSSELL 26.0 - 34.0 pg - - - MCHC 30.5 - 36.0 g/dL 33.6 33.1 31.4 MCHC, RUSSELL 30.5 - 36.0 g/dL - - - RDW, RUSSELL 11.5 - 15.0 % - - - RDW-CV 11.5 - 15.0 % 13.3 13.9 14.8 PLATELETS 150 - 400 k/uL 321 433(H) 295 MPV 9.0 - 12.7 fL 9.1 9.3 9.5 MPV, RUSSELL 9.0 - 12.7 fL - - - NEUT%, RUSSELL 39.5 - 74.0 % - - - MONO%, RUSSELL 0.0 - 12.0 % - - - EOS%, RUSSELL 0.0 - 6.6 % - - - BASO% % 0.5 0.2 - BASO%, RUSSELL 0.0 - 1.2 % - - - ABS NEUT (ANC) 1.45 - 7.50 k/uL 4.51 5.75 - ABS NEUT, RUSSELL 1.45 - 7.50 k/uL - - - ABS LYMP, RUSSELL 1.00 - 4.00 k/uL - - - ABS LYMPH 1.00 - 4.00 k/uL 2.08 2.16 - ABS MONO <0.87 k/uL 0.44 0.67 - ABS MONO, RUSSELL 0.00 - 0.86 k/uL - - - ABS EOS, RUSSELL 0.00 - 0.45 k/uL - - - ABS EOSIN <0.46 k/uL 0.23 0.13 - ABS BASO <0.11 k/uL 0.04 <0.03 - ABS BASO, RUSSELL 0.00 - 0.10 k/uL - - - NRBC /100 WBC 0.0 0.0 - DIFF TYPE - - - - CMP Latest Ref Rng & Units 03/19/2022 05/31/2022 06/19/2022 SODIUM 136 - 144 mmol/L 140 138 140 SODIUM, RUSSELL 136 - 145 mmol/L - - - SODIUM, RUSSELL 136 - 145 mmol/L - - - POTASSIUM 3.7 - 5.1 mmol/L 3.8 3.9 4.1 POTASSIUM, RUSSELL 3.5 - 5.1 mmol/L - - - CHLORIDE 97 - 105 mmol/L 101 101 108(H) CHLORIDE, RUSSELL 98 - 107 mmol/L - - - CO2 22 - 30 mmol/L 26 25 28 CO2, RUSSELL 21.0 - 32.0 mmol/L - - - GLUCOSE 74 - 99 mg/dL 91 91 102(H) GLUCOSE (U), RUSSELL NEGAT mg/dL - - - GLUCOSE, RUSSELL 70 - 99 mg/dL - - - BUN 7 - 21 mg/dL 10 8 11 BUN, RUSSELL 7 - 18 mg/dL - - - CREATININE 0.58 - 0.96 mg/dL 0.57(L) 0.54(L) 0.57(L) CREATININE, RUSSELL 0.6 - 1.0 mg/dL - - - EGFR >=60 mL/min/1.73m 105 106 105 EGFR-ALL OTHER RACES >60 . - - - EGFR- >60 - - - PROTEIN, TOTAL 6.3 - 8.0 g/dL 7.7 7.7 - TOTAL PROTEIN, RUSSELL 6.4 - 8.2 g/dL - - - PROTEIN TOTAL BLD - INTL - - - - ALBUMIN 3.9 - 4.9 g/dL 4.6 4.1 - ALBUMIN, RUSSELL 3.4 - 5.0 g/dL - - - ALBUMIN, URINE RANDOM 0.0 - 23.0 mg/L - - - CALCIUM, RUSSELL 8.5 - 10.1 mg/dL - - - CALCIUM, TOTAL 8.5 - 10.2 mg/dL 9.4 9.3 8.4(L) BILIRUBIN, TOTAL 0.2 - 1.3 mg/dL 0.2 0.2 - AST 13 - 35 U/L 22 18 - AST, RUSSELL 15 - 37 U/L - - - ALT 7 - 38 U/L 16 14 - ALT, RUSSELL 30 - 65 U/L - - - ALKALINE PHOSPHATASE 34 - 123 U/L 119 140(H) - Assessment/Recommendations: Adverse effect of contrast media, initial encounter (primary encounter diagnosis) Comment: Clinical history is possibly consistent with anaphylactoid adverse reaction to iodinated contrast media- as this was her first exposure to iodinated contrast. True IgE mediated reaction to iodinated contrast is rare, and since this was her first exposure, unlikely. Anaphylactoid reactions occur in approximately 1-3% of patients who receive ionic radiocontrast material and less than 0.5% of patients who receive nonionic radiocontrast media. Risk factors for anaphylactoid reactions to RCM include female sex, asthma, and a history of previous anaphylactoid reaction to RCM; beta-jayro exposure and/or the presence of cardiovascular conditions is associated with greater risk for more serious anaphylactoid reaction. Patients who experience anaphylactoid reactions to radiocontrast material should receive nonionic, iso-osmolar agents and treated with a premedication regimen of systemic corticosteroids and H1 blockers. This premedication can reduce but not necessarily eliminate the risk for anaphylactoid reaction with reexposure to contrast material. If iodinated contrast is needed, in the future, would pursue pre-medication protocol as below. With regards to initiation of Kevzara, upon review of active ingredients and structure, there is no clear association between an anayphylactoid reaction to iodinated contrast and this particular medication. Per literature review, in safety assessments by anti-drug antibody status, no cases of anaphylaxis were reported. Her risk of reaction is the same as the general population. Plan: - Patient will require pretreatment with glucocorticoids and H1-blockers prior to receiving contrast agents in the future. -Adult Oral prednisone 50 mg at 13, 7, and 1 hour prior to procedure AND -Diphenhydramine 50 mg oral, IM, or IV 1 hour prior to procedure -When contrast is required, patient should preferentially receive non-Ionic lower osmolar or iso-osmolar RCM agents (such as iodixanol). Adverse effect of drug, initial encounter Comment/Plan: Hx of shortness of breath with Cephalexin could be IgE mediated- advise continued avoidance, of note she tolerates other Penicillin antibiotics. Symptoms with Humira seem less likely IgE mediated more likely an adverse effect of the medication, continue avoidance. Chronic rhinitis Comment: Well-controlled Plan: - Continue Cetirizine 10mg daily as needed I spent a total of 60 minutes on the date of the service which included preparing to see the patient, [id number] patient care, completing clinical documentation, obtaining and/or reviewing separately obtained history, performing a medically appropriate examination, and counseling and educating the patient/family/caregiver. Lanny Maguire MD Reference: Drug Allergy: An Update Practice Parameter, Annals of Allergy, Asthma, & Immunology.) Austin AF, Clive J, Melissa EK, Gaviota A, Nani Y, Robi C, Henry C, Rambo [facility], desean Hill H, Willow A. Immunogenicity of Sarilumab Monotherapy in Patients with Rheumatoid Arthritis Who Were Inadequate Responders or Intolerant to Disease-Modifying Antirheumatic Drugs. Rheumatol Ther. 2019 Sep;6(3):339-352. doi: 10.1007/o02455-925-0262-6. Epub 2018February 02. PMID: [id number]; PMCID: [id number]. documented in this encounter [facility] 08-09-2022 Miscellaneous Notes Patient calling to check status of refill request. Aware rx sent to pharmacy earlier this morning. Pt called in reports she received an emergency refill of 3 pills from the pharmacy but asking if provider would be able to send this through today. Pt is completely out , asking to be filled so she has ine for tomorrow. Lauren--03/30/22 Nov--09/06/22 Last refill--02/06/22 90 with 1 refill Last labs--06/19/22 documented in this encounter [facility] 08-08-2022 Miscellaneous Notes I called the pharmacy and told them to place the medication on hold. Aury will undergo allergy testing and have her go tb test and contact pharmacy [facility] called regarding the Kevzara. Patient told them she has an allergy to Humira (difficulty breathing). There is a cross sensitivity with the medications. They are asking if it is OK to continue with the Kevzara or do we want to switch to another medication [phone] documented in this encounter [facility] 08-08-2022 History of Presen t illness Narrative Spoke with patient. Ongoing RA activity trying to initiate Kevzara. Alerted by pharmacy that there is a contraindication with contrast dye allergy and Kevzara due to iodine Will consult allergy to review case and whether she can start Kevzara Pt voiced understanding documented in this encounter [facility] 08-06-2022 Miscellaneous Notes Aury returned the call and stated when she had MRI w contrast, it was so sooner than then dye was injected that she had breathing problems. States she had two injections and was out of it until things resolved. I told her I would speak w Dr Harris and call her back. I also mentioned about the TB test to pt. called pt re: the iodine allergy... asked that she call back. if only hives we can proceed with the medication. If breathing issues, etc, she may need to see allergy before starting medication. An order was also placed for a TB test .. per [facility] Pharm recommendation. Asked pt to call [facility] specialty pharmacy called stating the pt is allergic to iodine which has a possible reaction with Kevzara. They want to confirm this is ok to dispense. Also the pt will need a TB also for the medication. [phone] documented in this encounter [facility] 07-29-2022 Miscellaneous Notes Submitted PA for fely via [employer] and waiting for approval. documented in this encounter [facility] 07-25-2022 Miscellaneous Notes Patient called in She had a total hip replacement on her right hip about 5 weeks ago. She stopped the methotrexate. She is not on any rheum medications. She is hurting everywhere from rehab. She takes 2 tylenol in the morning. Then a celebrex a few hours later. She said that you were trying to get another medication approved for her RA. She will be having a left knee replacement scheudled for 10/2022. Her surgeon recommended her to wait to start a new RA med until after this surgery. Do you think she should wait? Should she restart methotrexate? Can she take any other pain medication? Can she have the celebrex increased? Patient is due to return to work in a few weeks. Please call her at [phone] (home) Thank you documented in this encounter [facility] 07-18-2022 History of Presen t illness Narrative Ortho Hip Follow Up Note Narrative Referring Provider: SELF PCP: Timbo Bright MD IMPRESSION/PLAN: Impressions indicate: 57 year old s/p Right Total Hip Replacement completed on 06/18/2022. She states her incision has healed. She is doing well. Her left knee is very painful and she feels this is interfering with her recovery. She would like to schedule LTKA on 11/18/22. Orthopaedic Surgeries No cases to display PAIN EVALUATION No data found in the last 1 encounters. IMPRESSION: At normal post-operative stage of recovery. PLAN: No new treatment indicated: Routine follow-up with x-rays. Patient Reassurance: Normal post-operative course discussed with patient. Progress appears to be with the normal speed of recovery. Patient reassured and supported. All questions answered. Follow up 8 weeks X-Rays Needed Provider: Issa Mcdonald RN Completed by: Issa Mcdonald RN documented in this encounter [facility] 07-08-2022 Miscellaneous Notes SITUATION: No one present during today's visit. patient reports the following since the last homecare visit: medications/allergies--no changes, no fall. patient reports she is happy w/ hip progress and feels that left knee is more of a problem then hip. BACKGROUND: Diagnoses (reason for Home Care): RTHA Weight Bearing/Precaution Changes: no changes ASSESSMENT: Focus of visit: reassessment /discharge Physical therapy discharged: goals achieved. Functional performance at discharge - bed mobility independent, transfers independent, ambulation independent with cane and stairs independent.with cane and rail Plan of care, goals, and discharge reviewed and agreed upon with patient and/or caregiver. RECOMMENDATION: Patient discharged from home health services. Instructions to include:home exercise program as directed See intervention summary for intervention/education details. documented in this encounter [facility] 07-05-2022 Miscellaneous Notes SITUATION: MIL present during today's visit. patient reports the following since the last homecare visit: medications/allergies--no changes, no fall. patient reports she is happy w/ hip progress and feels that left knee is more of a problem then hip. Thinking she will plan her knee surgery for November 2022.. BACKGROUND: Diagnoses (reason for Home Care): RTHA Weight Bearing/Precaution Changes: no changes ASSESSMENT: Focus of visit progression to jimena standing exercises for strength and balance. Patient has to wear shoe on left foot w/ standing exercises due to arthritic left knee. denies increased hip pain w/ exercises. Plan of care, goals, and visit frequency reviewed and agreed upon with patient and/or caregiver. Current Discharge Plan: independent with home exercise program Anticipate discharge by 07/08/22 RECOMMENDATION: Next visit to focus on car transfers per patients request and DC See intervention summary for intervention/education details. documented in this encounter [facility] 07-03-2022 Miscellaneous Notes SITUATION: Patient ambulating to living room from bedroom when OT arrived. [id number] present during today's visit. patient reports the following since the last homecare visit: medications/allergies--no changes, no fall. Patient reports she is her nausea resolved since she was able to stop the antibiotic. BACKGROUND: Diagnoses or reason for Home Care: s/p Right THR with posterior hip precautions. ASSESSMENT: Focus of Visit: ADL Training with full shower process; training with use of LB ADL equipment; OT Discipline Discharge. Patient identified goals to regain my independence. Plan of care, goals, and visit frequency reviewed and agreed upon with patient and/or caregiver. See intervention summary for intervention/education details. Current Discharge Plan: remain in community with/without caregiver support. Anticipate discharge by today. RECOMMENDATION: Patient ready for OT Discharge. 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 patient reports the following since the last homecare visit: medications/allergies--no changes, no fall. patient reports increased RA pain. BACKGROUND: RA Diagnoses (reason for Home Care): R DEANN/ posterior- lateral approach/ WBAT Weight Bearing/Precaution Changes: no changes ASSESSMENT: Pt reports no increased hip pain during today's PT tx. Pt's incision appears clean, dry, and intact with no S/S of infection. Focus of visit: Improving trunk and LE strengthening. Plan of care, goals, and visit frequency reviewed and agreed upon with patient and/or caregiver. Current Discharge Plan: independent with home exercise program Anticipate discharge by: 07/08/22 RECOMMENDATION: Pt would cont to benefit from further PT tx to improve LE/ trunk strength and balance in order to decrease assistance with transfers, walking, and stair negotiation. Next visit to focus on: Improving trunk and LE strengthening. See intervention summary for intervention/education details. documented in this encounter [facility] 07-02-2022 Miscellaneous Notes Patient has been identified by name and date of : Yes . Patient calling for :general concern. Patient called. She had a hip replacement two weeks ago and was told she could restart her RA medications. She would like to know if she can restart her Gabapentin, Celebrex. She is having difficulty rehabbing with the pain. She is taking oxycodone and aspirin. Is it safe to take the Celebrex with these? She has discontinued the Methotrexate per Dr. Harris's recommendation. Pharmacy has been updated: No . Return call needed: Patient is expecting a call back. Can be reached at phone number listed below.. Patient can be reached at : [phone] documented in this encounter [facility] 06-28-2022 Miscellaneous Notes Hi, Aury Cruz wants to know if she can discontinue her antibiotic because it is making her nauseous and making her vomit, even if she eats food when she takes it. Can one of you please let her know? Thank you! Kassandra Alvarado, MS, OTR/L documented in this encounter [facility] 06-28-2022 Miscellaneous Notes OT contacted Dr. Ambriz via [employer] on 06/722 for the following: Reported that patient is having nausea & vomitting with her antibiotic. Message received back from Dr. Ambriz this evening informing that patient could discontinue this medication. Phone call placed to this patient to inform her of this at 8:24 pm. New orders: None Follow up needed: None SITUATION: Patient sitting on couch when OT arrived. spouse present during today's visit. patient reports the following since the last homecare visit: medications/allergies--no changes, no fall. patient reports she did a lot yesterday & had a lot of pain last night & this morning. Instructed patient to pace herself with activity & not overdo things. BACKGROUND: Diagnoses or reason for Home Care: s/p right THR with posterior hip precautions. ASSESSMENT: Focus of Visit ADL training with tub transfer training with tub transfer bench & training with LB ADL equipment for ADL tasks. Patient identified goals: to be independent with ADLs. Plan of care, goals, and visit frequency reviewed and agreed upon with patient and/or caregiver. See intervention summary for intervention/education details. Current Discharge Plan: remain in community with/without caregiver support. Anticipate discharge by 07/06/22. RECOMMENDATION: Next visit to focus on ADL training with showering and dressing with use of tub transfer bench for additional training to facilitate improved ADL performance/OT Re-Assessment or Discharge depending on patient's ADL & tub transfer status. documented in this encounter [facility] 06-25-2022 Miscellaneous Notes SITUATION: spouse present during today's visit. patient reports the following since the last homecare visit: medications/allergies--no changes, no fall. patient reports she was able to get herself out of bed this morning. BACKGROUND: Diagnoses (reason for Home Care): RTHR Weight Bearing/Precaution Changes: no changes ASSESSMENT: Focus of visit bandage removal, gait training, transfers and exercises for HEP Patient declines stairs today due to fatigue after exercises. Plan of care, goals, and visit frequency reviewed and agreed upon with patient and/or caregiver. Current Discharge Plan: independent with home exercise program Anticipate discharge by 07/08/22 RECOMMENDATION: Next visit to focus on stair to exit home See intervention summary for intervention/education details. documented in this encounter [facility] 06-24-2022 Miscellaneous Notes Doxycycline make her very sick not sure if there is an alternative or if she should stop taking it, she did say she threw them up [phone] is the number to call to reach patient Patient has been identified by name and date of : Yes Requested Prescriptions Pending Prescriptions Disp Refills oxyCODONE IR (ROXICODONE) 5 mg immediate release tablet 42 tablet 0 Sig: Take 1-2 tablets by mouth every 6 hours as needed for up to 7 days. Use for severe pain only RX INSTRUCTIONS: Patient aware RX will be sent to pharmacy. No need to notify patient. Ildefonso Guardado documented in this encounter [facility] 06-24-2022 Miscellaneous Notes SITUATION: spouse present during today's visit. patient reports the following since the last homecare visit: medications/allergies--no changes, no fall. patient reports she is doing ok. OT finishing visit upon my arrival. BACKGROUND: Diagnoses (reason for Home Care): RTKA Weight Bearing/Precaution Changes: no changes ASSESSMENT: Focus of visit progression of HEP, gait training including stair training bed transfers Plan of care, goals, and visit frequency reviewed and agreed upon with patient and/or caregiver. Current Discharge Plan: independent with home exercise program Anticipate discharge by 07/08/22 RECOMMENDATION: Next visit to focus on bandage removal See intervention summary for intervention/education details. documented in this encounter [facility] 06-24-2022 Miscellaneous Notes SITUATION: Patient sitting on couch when OT arrived. also present. spouse present during today's visit. patient and caregiver reports the following since the last homecare visit: medications/allergies--no changes, no fall. BACKGROUND: Diagnoses or reason for home care: Primary Diagnoses (reason for Home Care): M16.11Unilateral primary osteoarthritis, right hip s/p R DEANN on 06/18 MEDICAL HISTORY: Awareness of Heartbeats Migraine, Unspecified, With Intractable Migraine, So Stated, Without Mention of Status Migrainosus Gastroesophageal Reflux Disease Anemia Emotional Lability 1.1 Migraine without aura, not intractable [346.10] Intractable Migraine With Aura Without Stat us Migrainosus 1.5.1 Chronic migraine [346.71] Rheumatoid Arthritis of Multiple Sites Without Organ Or System Involvement With Positive Rheumatoid Factor (Hcc) Drug Allergy Allergy to Sulfa Drugs Rash and Nonspecific Skin Eruption Hypothyroidism Moderate Obstructive Sleep Apnea Acute Pain of Both Knees Knee Joint Stiffness, Bilateral Difficulty Walking Hip Stiffness, Unspecified Laterality Right Lumbar Radiculitis Lumbar Spondylosis Chronic Right-Sided Low Back Pain With Right-Sided Sciatica Rheumatoid Arthritis Involving Both Knees With Positive Rheumatoid Factor (Hcc) Exercise-Induced Asthma Status Post Knee Replacement Raynaud Phenomenon Calcific Tendinitis of Right Shoulder Cervical Radiculopathy Disorder of Acromioclavicular Joint Personal History of Rheumatoid Arthritis History of Hypothyroidism Fibromyalgia 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Ida (Iron Deficiency Anemia) Weight Bearing or Precautions: Right Posterior Hip Precautions; WBAT Right LE. ASSESSMENT: Patient evaluated by [facility] occupational therapy. Reviewed and explained homecare services. Plan of care, goals and visit frequency developed, reviewed, and agreed upon with patient and/or caregiver. Vita'ts RA affects her overall function. Patient and state that patient is very stiff in the mornings & that she becomes weak at the end of the day due to fatigue. Encouraged patient to take pain pill shortly before needing to get out of bed, like she is used to doing, to enable her to be able to assist better with bed mobility and her initial transfer. Bilateral UE AROM grossly WFLs, but no MMT completed this date due to achiness in both UE's from use of walker. Patient identified goals: to regain her independence. Patient will benefit from continued occupational therapy to address the following deficits functional activity including I/ADLs, UE strength/ROM and functional transfers as evidenced by score on Modified Karthik Index 60/100. Current Discharge Plan:remain in community with/without caregiver support. Anticipate discharge by 07/06/22. RECOMMENDATION: Plan for next visit to focus on ADL Training with use of LB ADL Equipment & Tub Transfer Training; possible full showering and dressing session. See intervention summary for intervention/education details. documented in this encounter [facility] 06-21-2022 Miscellaneous Notes SITUATION: spouse present during today's visit. patient and caregiver reports the following since the last homecare visit: medications/allergies--no changes, no fall. patient reports she is having a horrible time getting out of bed in the morning due to RA and not being able to push up w/ UEs. BACKGROUND: Diagnoses (reason for Home Care): R THR, posterior appriach Weight Bearing/Precaution Changes: no changes ASSESSMENT: Focus of visit transfer training. recommended using belt for CG to assist w/ sitting up in bed, Patient and spouse able to demonstarte good rechnique w/ supine<>sit trainfers and both reported much easier and less pain w/ using belt. HEP, gait training Plan of care, goals, and visit frequency reviewed and agreed upon with patient and/or caregiver. Current Discharge Plan: independent with home exercise program Anticipate discharge by 07/08/22 RECOMMENDATION: Next visit to focus on increase reps w/ exercises and review transfers See intervention summary for intervention/education details. documented in this encounter [facility] 06-20-2022 Miscellaneous Notes SITUATION: spouse present during today's visit. patient reports she is anxious about dislocating her hip as the surgeon told her because of her RA. Pt notes she has a new adjustable bed arriving this weekend. . BACKGROUND: Diagnoses (reason for Home Care): R DEANN with Dr. Ambriz on 06/18/22 at [facility] (hospitalized 06/18-06/19) Past Significant Medical History Includes but is not limited to: Migraine, Gastroesophageal Reflux Disease, Anemia, Emotional Lability, Rheumatoid Arthritis of Multiple Sites Without Organ Or System Involvement With Positive Rheumatoid Factor, Drug Allergy, Hypothyroidism, Moderate Obstructive Sleep Apnea, Acute Pain of Both Knees, Knee Joint Stiffness, Bilateral, Difficulty Walking, Hip Stiffness, Unspecified Laterality, Right Lumbar Radiculitis, Lumbar Spondylosis, Chronic Right-Sided Low Back Pain With Right-Sided Sciatica, Rheumatoid Arthritis Involving Both Knees With Positive Rheumatoid Factor, Exercise-Induced Asthma, Status Post Knee Replacement, Raynaud Phenomenon, Calcific Tendinitis of Right Shoulder, Cervical Radiculopathy, Disorder of Acromioclavicular Joint, Fibromyalgia, Esophageal; iron deficiency anemia Weight Bearing or Surgical Precautions: WBAT RLE; R hip posterior precuations ASSESSMENT: Patient evaluated by [facility] physical therapy. Reviewed and explained homecare services. Plan of care, goals, and visit frequency developed, reviewed, and agreed upon with patient and/or caregiver. Pt's current functional levels include: mod A supine->sit; sit->supine min A; sit<>stand transfers with cga; gait with cga with FWW. Stairs CGA. Due to pt's acute post-operative state, skilled PT services are indicated to address functional mobility deficits and facilitate device progression and increased independence and safety; HEP development and safety; balance and functional strengthening training; and pt/caregiver education for home safety and fall prevention. Pt's comorbidities including RA may slow pt's progress, but pt remains motivated and in agreement with PT goals/ POC. Patient Goal: To regain independence Patient will benefit from continued physical therapy to address the following deficits: strength, balance, gait, transfers, stair negotiation and bed mobility. Current Discharge Plan: pt currently declining outpatient PT - so DC plan is for home with HEP at this time. Anticipate discharge by 07/13/22. RECOMMENDATION: PT to tx 2w1; 3w1; 2w1; 1w1 Next visit to focus on HEP progression supine and seated as tolerated; transfers and bed mobility with emphasis on proper mechanics and increased independence while maintaining THR precautions RLE Agreeable to PT and OT; declining none. See intervention summary for intervention/education details. Following this visit, pt's POC will be followed by Cris Del Valle PT documented in this encounter [facility] 06-19-2022 Note HNO ID: [id number] Author: Joanne Newton RN Service: Nursing Author Type: Registered Nurse Type: Progress Notes Filed: 06/19/2022 1:07 PM Note Text: 1220- discharge instructions discussed with pt, questions answered, states understanding. Awaiting ride home 1305- pt discharged with all belongings in stable condition [facility] 06-19-2022 Note HNO ID: [id number] Author: Juan Daniel Elliott MD Service: ? Author Type: Resident Type: Progress Notes Filed: 06/19/2022 9:38 AM Note Text: ORTHOPAEDIC SURGERY PROGRESS NOTE A/P: 57 year old female s/p RT DEANN with Dr. Ambriz on 06/18/2022 - Weightbearing: WBAT - Range of Motion: AROM as tolerated - Dressing: silver dressing x 7 days post-op - Drains: n/a - Negro: Per nursing protocol - Diet: regular - HLIV when tolerating adequate PO - DVT Prophylaxis: Aspirin 81mg BID x 4 wks, SCDs - Antibiotics: domonique-op x24 - Cultures: n/a - Consults: PT/OT, care management, appreciate recs Dispo: Pending PT/OT recs, anticipated discharge POD1-2 Rounding: Subjective -No overnight issues -Pain well controlled. -AFVSS. Objective Blood pressure 108/51, pulse 93, temperature 36.5 ?C (97.7 ?F), temperature source Temporal Artery, resp. rate 18, height 165.1 cm (5' 5), weight 66.7 kg (147 lb), last menstrual period 06/15/2015, SpO2 99 %. Physical Exam AAOx3, NAD Breathing comfortably at rest RRR to peripheral palpation R Lower Extremity: - Surgical dressing applied to operative extremity c/d/i - Motor: grossly firing ankle PF/DF/EHL - Sensory: SILT in the foot and toes grossly - 2+ DP/PT pulses, CR<2s Labs: CBC: Recent Labs 06/19/22 0403 WBC 8.25 HB 8.8* HCT 28.0* PLT 295 MCV 94.0 RDWCV 14.8 COAG: No results for input(s): APTT, INR in the last 168 hours. BMP: Recent Labs 06/19/22 0403 GLUC 102* NA 140 K 4.1 CHLOR 108* CO2 28 ANION 4* BUN 11 CREAT 0.57* CHEM: Recent Labs 06/19/22 040 CA 8.4* URINALYSIS:No results for input(s): PH, SPGR, UGLUC, UBILI, UKET, UHB, UPROT, UROBIL, UWBC, SSA in the last 168 hours. Invalid input(s): NITR CRP: CRP (mg/dL) Date Value 02/19/2022 0.7 ESR: Sed Rate, Westergren (mm/hr) Date Value 02/19/2022 40 (H) Please scroll above for Assessment AND Plan. --- Juan Daniel Elliott MD Orthopaedic Surgery Resident P: [phone] On-call: [phone] [facility] 06-19-2022 Miscellaneous Notes Most recent Rheumatology visit: 06/13/2022 (with Mino Harris) Recent Office Visits - This Specialty 06/13/2022 Rheumatoid arthritis involving multiple sites with positive rheumatoid factor (HCC) Rheumatology Mino Harris MD 03/08/2022 Rheumatoid arthritis involving multiple sites with positive rheumatoid factor (HCC) Rheumatology Kaylyn Alcazar [facility] 02/19/2022 Rheumatoid arthritis involving multiple sites with positive rheumatoid factor (HCC) [facility] Mino Harris MD Upcoming Rheumatology Appointments - Next 365 Days Visit Type Date Time Department [facility] 08/28/2022 11:00 AM [facility] [place] CBC: CBC Latest Ref Rng & Units 05/31/2022 06/19/2022 WBC 3.70 - 11.00 k/uL 8.75 8.25 HEMOGLOBIN 11.5 - 15.5 g/dL 10.8(L) 8.8(L) HEMOGLOBIN, RUSSELL 11.5 - 15.5 g/dL - - HEMATOCRIT 36.0 - 46.0 % 32.6(L) 28.0(L) PLATELETS 150 - 400 k/uL 433(H) 295 ABS NEUT (ANC) 1.45 - 7.50 k/uL 5.75 - ABS NEUT, RUSSELL 1.45 - 7.50 k/uL - - ABS LYMP, RUSSELL 1.00 - 4.00 k/uL - - ABS LYMPH 1.00 - 4.00 k/uL 2.16 - Vitamin D: None on file in the last 6 months LFT: CMP Latest Ref Rng & Units 05/31/2022 06/19/2022 SODIUM 136 - 144 mmol/L 138 140 SODIUM, RUSSELL 136 - 145 mmol/L - - SODIUM, RUSSELL 136 - 145 mmol/L - - POTASSIUM 3.7 - 5.1 mmol/L 3.9 4.1 POTASSIUM, RUSSELL 3.5 - 5.1 mmol/L - - CHLORIDE 97 - 105 mmol/L 101 108(H) CHLORIDE, RUSSELL 98 - 107 mmol/L - - CO2 22 - 30 mmol/L 25 28 CO2, RUSSELL 21.0 - 32.0 mmol/L - - GLUCOSE 74 - 99 mg/dL 91 102(H) GLUCOSE (U), RUSSELL NEGAT mg/dL - - GLUCOSE, RUSSELL 70 - 99 mg/dL - - BUN 7 - 21 mg/dL 8 11 BUN, RUSSELL 7 - 18 mg/dL - - CREATININE 0.58 - 0.96 mg/dL 0.54(L) 0.57(L) CREATININE, RUSSELL 0.6 - 1.0 mg/dL - - CALCIUM, RUSSELL 8.5 - 10.1 mg/dL - - CALCIUM, TOTAL 8.5 - 10.2 mg/dL 9.3 8.4(L) AST 13 - 35 U/L 18 - AST, RUSSELL 15 - 37 U/L - - ALT 7 - 38 U/L 14 - ALT, RUSSELL 30 - 65 U/L - - ALKALINE PHOSPHATASE 34 - 123 U/L 140(H) - Creatinine: Creatinine Latest Ref Rng & Units 05/31/2022 06/19/2022 CREAT 0.58 - 0.96 mg/dL 0.54(L) 0.57(L) ESR/CRP: ESR, WSR Latest Ref Rng & Units 01/04/2021 02/19/2022 WSR 0 - 20 mm/hr 49(H) 40(H) SED RATE, RUSSELL 0 - 20 mm/hr - - CRP Latest Ref Rng & Units 01/04/2021 02/19/2022 CRP <0.9 mg/dL 0.7 0.7 Uric Acid: None on file in the last 6 months Open Standing (Multiple Instance) Lab Orders Remain Interval Expires Ordered Last Rel. TSH BLD [SQTSH] 11/25 Every 2 months 08/11/22 08/11/21 06/05/22 Auth. provider: Timbo Bright MD Assoc. diagnoses: Acquired hypothyroidism T4 FREE/FREE THYROX [SQFT4] 11/25 Every 2 months 08/11/22 08/11/21 06/05/22 Auth. provider: Timbo Bright MD Assoc. diagnoses: Acquired hypothyroidism T3 FREE BLD [SQFREET3] 3/6 Every 2 months 08/11/22 08/11/21 06/05/22 Auth. provider: Timbo Bright MD Assoc. diagnoses: Acquired hypothyroidism Open Future (Single Instance) Lab Orders Expected Expires Ordered FECAL OCCULT BLOOD TEST [SQIFOBT] 09/06/22 09/06/21 Auth. provider: Ev Berger APRN.DIE CUTTING MACHINE OPERATOR Assoc. diagnoses: Colon cancer screening PRE-PROCEDURE & PRE-OPERATIVE COVID [SQPOCOVD] 06/14/22 06/07/23 06/10/22 Auth. provider: Alhaji Francois PA-C Assoc. diagnoses: Primary osteoarthritis of right hip documented in this encounter [facility] 06-18-2022 Miscellaneous Notes Welcome Home Call: a. Date and Time: 4:15 PM 06/18/2022 b. Contact name/relationship: LashayLuc L (Spouse) c. Have you been active with any Home Care company in the last 60 days(such as help with bathing, filling medications, checking your blood pressure) ? No. d. Was patient given Flu shot this Season (After May,): No: Patient refused e. [facility] will be providing your care, are you agreeable to starting these services? YES (yes or no) f. Do you have any upcoming appointments in the next few days, or restrictions to your schedule?No g. Caregiver: Patient is able to manage care independently Please keep our your medications both over the counter and prescribed out for the home care to review, your hospital discharge instructions and write down any questions you might have. In order to maintain a safe environment for our caregivers, [facility] requires any animals or weapons present in the home be located in a secured location. Our clinicians will call you the night before or the morning of the appointment. Their # may come up restricted but they'll leave a VM for you. In case you have any questions or concerns in the meantime, our # is [phone], option 1 Thank you for your time and have a great day. MICHELLE Rhodes documented in this encounter [facility] 06-18-2022 Note HNO ID: [id number] Author: Milagros Murary MD Service: Critical Care Author Type: Resident Type: Anesthesia Procedure Notes Filed: 06/18/2022 9:55 AM Note Text: Attestation signed by Afshin Villatoro MD at 06/18/2022 10:21 AM ANESTHESIOLOGY PROCEDURE NOTE Spinal Block General Information Procedure Start Time/Medication Administration: 06/18/2022 9:45 AM Procedure End time: 06/18/2022 9:50 AM Patient location during procedure: pre-op Timeout Performed Pre-procedure: timeout performed Consent Obtained: Yes Patient identity confirmed: arm band and patient Reason for Block: primary surgical anesthetic Staffing Anesthesiologist: Afshin Villatoro MD Resident: Milagros Murray MD Performed by: resident Preparation Sterility Preparation: hand hygiene performed prior to procedure, surgical cap used, mask used, sterile drape used during line insertion, skin prep agent completely dried prior to procedure Site Prep: Duraprep Procedure Details Patient Position: sitting Monitoring: Pulse Ox and NIBP Approach: Midline Location: L3-4 and L4-5 Injection Technique: single-shot Needle Needle Type: pencil-tip Needle Gauge: 25 G Needle Length: 3.5 in Assessment Events: tolerated well Medications Administered bupivacaine-dextrose 0.75 % (7.5 mg/mL) injection (SENSORCAINE MPF SPINAL) - INTRASPINAL 1.8 mL - 06/18/2022 9:45:00 AM SIGNATURE: Milagros Murray MD PATIENT NAME: Aury Metz DATE: June 18, 2022 TIME: 9:55 AM CSN: [id number] [facility] 06-13-2022 History of Presen t illness Narrative Images from the original note were not included. Rheumatology Clinic Date of Service: 06/13/2022 Patient: Aury Metz Medical Record: [id number] Primary Care Physician: Timbo Bright MD Last Rheumatology visit: 06/13/2022 (with Mino Harris) History of Present Illness No specialty comments available. Aury eMtz is a 57 year old White female who presents on 06/13/2022 for an in-person visit for evaluation of Rheumatoid Arthritis. She is currently taking methotrexate sodium. Aury is RF positive - 48 (01/11/2012) and CCP negative - 20 (05/01/2011). Her most recent KENY was positive (05/05/2013). She does not have erosive disease. There are no rheumatoid nodules present. Aury has mild joint swelling. She reports morning stiffness and that it lasts for about 60 minutes . HISTORY OF PRESENT ILLNESS 57 year old with RF+, CCP negative (intermittent +CCP in the past) Nonerosive Past treatment: Plaquenil: LE numbness Methotrexate: Became ineffective after 7 years Arava: Rash Humira: SOB Enbrel: ?? Not sure why it was stopped. She thinks she only had one injection. Cymbalta: mind could not shut off. Xeljanz: Insurance would not cover, despite an appeal. S/p R TKR 2020 INTERVAL HISTORY RA AM stiffness > 3 hours R hip painful as well as L knee MTX on hold due to upcoming R THR Past DMARDs Humira effective but caused SOB ARAVA rash Musculoskeletal History Joint swelling Joint Replacement(s) Joint Date Laterality Comment Knee 07/02/21 Right No other arthritis-related surgery Rheumatoid Arthritis History Rheumatoid Factor Positive Anti CCP negative No erosive No rheumatoid nodules Morning stiffness Morning stiffness persists for: 60 minutes Joint Swelling Joint replacement Joint Date Laterality Comment Knee 07/02/21 Right No other RA-related surgery Extra-Articular Features / Comorbidities Anemia Rheum/Ortho Arthrocentesis Injections (last 5) Some values may be hidden. Unless noted otherwise, only the newest values recorded on each date are displayed. Injection History 10/05/20 07/02/21 06/18/22 Medication - Right 40 mg methylPREDNISolone acetate 40 mg/mL Medication - Left 40 mg methylPREDNISolone acetate 40 mg/mL Medication bupivacaine-dextrose 0.75 % (7.5 mg/mL) injection (SENSORCAINE MPF SPINAL), 2 mL bupivacaine-dextrose 0.75 % (7.5 mg/mL) injection (SENSORCAINE MPF SPINAL) - INTRASPINAL 1.8 mL - 06/18/2022 9:45:00 AM Location knee Knee Site bilateral knee joints Some values recorded on this date have been omitted. Patient-Entered Data Pain Scores Pain Evaluation 06/19/2022 06/19/2022 06/19/2022 Pain Score 3 3 4 Location - Hip-Right Hip-Right Location Comment - - - Description - Aching Aching Duration (#) - - - Duration (Timeframe) - - - Frequency - - - Intervention - Medication;Cold;Reposition Reposition;Relaxation;Cold Comments - - - PROMIS Assessments PROMIS Global Health - (T-Scores - the mean of general population = 50. Five points is a clinically meaningful difference.) 06/20/2021 02/16/2022 05/25/2022 Physical T-Score - 44.9 37.4 Mental T-Score 45.8 43.5 43.5 PROMIS CAT Pain Interference 10/02/2020 12/28/2020 02/16/2022 PROMIS Pain Interference T-Score (range: 10 - 90) 67 (moderate) 63 (moderate) 67 (moderate) PROMIS Pain Interference Percentile 4 % 10 % 4 % PROMIS CAT Fatigue 07/21/2021 08/17/2021 02/16/2022 PROMIS Fatigue T-Score 64 (moderate) 64 (moderate) 64 (moderate) PROMIS Fatigue Percentile 8 % 8 % 8 % PROMIS PHYSICAL FUNCTION T-SCORE 07/21/2021 08/17/2021 02/16/2022 PROMIS Physical Function T-Score 33 (moderate dysfunction) 37 (moderate dysfunction) 34 (moderate dysfunction) Physical Function Percentile 4 % 10 % 5 % RAPID 3 Gonzalez Activities of Daily Living 02/16/2022 6:16 PM 12/28/2020 7:19 AM 10/02/2020 3:18 PM First answer obtained - 06/19/2020 9:12 AM Dress self? With SOME difficulty Without ANY difficulty Without ANY difficulty Without ANY difficulty Get in and out of bed? With SOME difficulty Without ANY difficulty With SOME difficulty With SOME difficulty Walk outdoors? With SOME difficulty With SOME difficulty Without ANY difficulty Without ANY difficulty Wash and dry body? With SOME difficulty Without ANY difficulty Without ANY difficulty Without ANY difficulty Get in and out of car? With SOME difficulty With SOME difficulty With SOME difficulty With SOME difficulty RAPID 3 Disease Activity Weighed Score Levels: 0 - 1: Near Remission 1.3 - 2.0: Low Severity 2.3 - 4.0: Moderate Severity 4.3 - 10.0: High Severity RAPID-3 Weighed Score 10/02/2020 12/28/2020 02/16/2022 RAPID 3 Weighed Score - - - RAPID 3 Weighed Score 3.72 (Moderate Severity (MS)) 3.88 (Moderate Severity (MS)) 6.06 (High Severity (HS)) Patient Health Questionnaire (PHQ-9) PHQ-9 04/18/2020 04/18/2020 03/04/2022 Score 0 0 8 (0-4) minimal depression, (5-9) mild depression, (10-14) moderate depression, (15-19) moderately severe depression, (20-27) severe depression Review of Systems ROS RHEUMATOLOGYAll other reviewed and negative other than HPI. Past Medical History PAST MEDICAL HISTORY Diagnosis Date Bronchitis, not specified as acute or chronic Dizziness and giddiness Esophageal reflux 10/27/2006 High cholesterol Migraine, unspecified, with intractable migraine, so stated, without mention of status migrainosus Palpitations 06/08/07 Stress echo at [facility] and EF% is 61. RA (rheumatoid arthritis) ([facility]) Rheumatoid arthritis(714.0) 05/02/2011 Past Surgical History PAST SURGICAL HISTORY Procedure Laterality Date ESOPHAGOSCOPY FLEX BALLOON DILAT <30 MM DIAM 2001 2005 Esophageal dilatation LAPS ABD PRTM&OMENTUM DX W/WO SPEC BR/WA SPX Laparoscopy LIG/TRNSXJ FLP TUBE ABDL/VAG APPR UNI/BI Tubal ligation TOTAL KNEE REPLACEMENT Right 07/02/2021 Family History FAMILY HISTORY Problem Relation Age of Onset Heart Mother murmur COPD Mother other (High Cholesterol) Mother other (vocal cord paralysis ) Mother Hypertension Father Arthritis Maternal Grandmother RA Diabetes Brother Rheumatologic disease Brother Heart Brother Heart Brother mi Diabetes Brother Lipids Sister Breast Cancer Son 18 people on Mom's side of family other (hodgkin) Son Social History Social History Tobacco Use Smoking status: Never Smokeless tobacco: Never Vaping Use Vaping Use: Never used Substance Use Topics Alcohol use: No Drug use: No Current Medications Current Outpatient Medications on File Prior to Visit Medication Sig thyroid, pork, (ARMOUR THYROID) 60 mg Take 1 tablet by mouth once daily. acetaminophen (TYLENOL EXTRA STRENGTH) 500 mg tablet Take 2 tablets by mouth every 6 hours as needed for pain for up to 30 doses. mupirocin (BACTROBAN) 2 % ointment Apply 0.5 inch with cotton swab (Q-tip) to each nostril in the morning and evening for 5 days prior to and including day of surgery. celecoxib (CELEBREX) 200 mg capsule Take 1 capsule by mouth once daily. omeprazole (PRILOSEC) 20 mg capsule Take 1 capsule by mouth once daily. docusate sodium (COLACE) 100 mg capsule Take 1 capsule by mouth twice daily. methotrexate sodium 25 mg/mL soln INJECT 0.6 ML SUBCUTANEOUSLY ONE TIME A WEEK. Insulin Syringe-Needle U-100 0.3 mL 30 gauge x 5/16 syrg USE DIRECTED TO INJECT SUBCUTANEOUS METHOTREXATE ONCE WEEKLY gabapentin (NEURONTIN) 100 mg capsule Take 3 capsules by mouth daily at bedtime. CPAP Pt with known NIKO confirmed by HSAT. AHI normalized with PAP. Has PAP device (Airsense 10 ([id number])). However, not receiving masks through current DME. Requests change. NIKO sx resolved with PAP. Please fit with Dreamwear under nose FFM (not pillows). Needs supplies. Lifetime supplies. Please provide us download in 4 weeks. folic acid 1 mg tablet Take 1 tablet by mouth once daily. CPAP Initiate Auto PAP @ 5-20 cm of water with humidification. Mask (per patient preference) optional chin strap (if indicated) , filters, tubing, humidifier and lifetime supplies. Cetirizine (ZYRTEC) 10 mg cap Take 1 capsule by mouth as needed (allergies). No current facility-administered medications on file prior to visit. Labs CBC Latest Ref Rng & Units 02/19/2022 03/19/2022 05/31/2022 06/19/2022 WBC 3.70 - 11.00 k/uL 7.34 7.31 8.75 8.25 HEMOGLOBIN 11.5 - 15.5 g/dL 11.6 12.2 10.8(L) 8.8(L) HEMOGLOBIN, RUSSELL 11.5 - 15.5 g/dL - - - - HEMATOCRIT 36.0 - 46.0 % 35.9(L) 36.3 32.6(L) 28.0(L) PLATELETS 150 - 400 k/uL 358 321 433(H) 295 ABS NEUT (ANC) 1.45 - 7.50 k/uL 4.00 4.51 5.75 - ABS NEUT, RUSSELL 1.45 - 7.50 k/uL - - - - ABS LYMP, RUSSELL 1.00 - 4.00 k/uL - - - - ABS LYMPH 1.00 - 4.00 k/uL 2.68 2.08 2.16 - CMP Latest Ref Rng & Units 02/19/2022 03/19/2022 05/31/2022 06/19/2022 SODIUM 136 - 144 mmol/L 138 140 138 140 SODIUM, RUSSELL 136 - 145 mmol/L - - - - SODIUM, RUSSELL 136 - 145 mmol/L - - - - POTASSIUM 3.7 - 5.1 mmol/L 3.9 3.8 3.9 4.1 POTASSIUM, RUSSELL 3.5 - 5.1 mmol/L - - - - CHLORIDE 97 - 105 mmol/L 100 101 101 108(H) CHLORIDE, RUSSELL 98 - 107 mmol/L - - - - CO2 22 - 30 mmol/L 26 26 25 28 CO2, RUSSELL 21.0 - 32.0 mmol/L - - - - GLUCOSE 74 - 99 mg/dL 132(H) 91 91 102(H) GLUCOSE (U), RUSSELL NEGAT mg/dL - - - - GLUCOSE, RUSSELL 70 - 99 mg/dL - - - - BUN 7 - 21 mg/dL 11 10 8 11 BUN, RUSSELL 7 - 18 mg/dL - - - - CREATININE 0.58 - 0.96 mg/dL 0.58 0.57(L) 0.54(L) 0.57(L) CREATININE, RUSSELL 0.6 - 1.0 mg/dL - - - - CALCIUM, RUSSELL 8.5 - 10.1 mg/dL - - - - CALCIUM, TOTAL 8.5 - 10.2 mg/dL 9.7 9.4 9.3 8.4(L) AST 13 - 35 U/L 69(H) 22 18 - AST, RUSSELL 15 - 37 U/L - - - - ALT 7 - 38 U/L 60(H) 16 14 - ALT, RUSSELL 30 - 65 U/L - - - - ALKALINE PHOSPHATASE 34 - 123 U/L 123 119 140(H) - ESR, WSR Latest Ref Rng & Units 03/15/2020 10/05/2020 01/04/2021 02/19/2022 WSR 0 - 20 mm/hr 34(H) 20 49(H) 40(H) SED RATE, RUSSELL 0 - 20 mm/hr - - - - CRP Latest Ref Rng & Units 03/15/2020 10/05/2020 01/04/2021 02/19/2022 CRP <0.9 mg/dL 0.6 0.2 0.7 0.7 C3, C4 Latest Ref Rng & Units 05/05/2013 C3 68 - 260 mg/dL 111 C4 12 - 46 mg/dL 17 RF and CCP Latest Ref Rng & Units 12/12/2010 05/01/2011 01/11/2012 RHEUMATOID FACTOR <20 IU/mL 99(H) 57(H) 48(H) CCP ANTIBODY, IGG Units - 20 - Hepatitis Screen Latest Ref Rng & Units 05/01/2011 06/19/2016 10/08/2017 04/22/2018 HEPBCOTOL Negative Negative Negative Negative Negative HEPSABQ Negative Positive(A) Positive(A) Positive(A) Positive(A) HEPCABEIA Negative Negative Negative Negative Negative HBSAGR Negative Negative Negative Negative Negative TB Screen Latest Ref Rng & Units 07/26/2015 06/19/2016 10/08/2017 07/29/2018 TBGINT - No evidence of current or previous infection with Mycobacterium tuberculosis. No evidence of current or previous infection with Mycobacterium tuberculosis. No evidence of current or previous infection with Mycobacterium tuberculosis. No evidence of current or previous infection with Mycobacterium tuberculosis. TBGRES Negative Negative Negative Negative Negative Antibodies Latest Ref Rng & Units 12/12/2010 05/05/2013 KENY NEGAT Negative Negative KENY BY EIA <1.5 OD Ratio 1.5(H) 1.7(H) KENY TITER NEGAT Negative Negative KENY PATTERN - Not applicable for negative result. Not applicable for negative result. DNA ANTIBODY W/CONFIRMATION <30 IU/mL - <12 COSMETIC MAKER ANTIBODY <1.0 AI - <0.2 SSA ANTIBODY <1.0 AI - 0.2 SSB ANTIBODY <1.0 AI - 0.3 SHEKHAR-1 ANTIBODY, IGG <1.0 AI - <0.2 RIBOSOMAL COSMETIC MAKER <1.0 AI - 0.3 SM ANTIBODY <1.0 AI - <0.2 SCLERODERMA AB, IGG <1.0 AI - <0.2 SCL-70 ABS, EIA <1.0 AI - <0.2 CENTROMERE AB <1.0 AI - <0.2 CHROMATIN ANTIBODY <1.0 AI - <0.2 ANCA Latest Ref Rng & Units 03/29/2011 MYELOPEROXIDASE <480 pmol/L 336 Urinalysis Latest Ref Rng & Units 02/23/2020 03/15/2020 04/17/2020 02/19/2022 PROTEIN, URINE Negative - - Negative Negative PROTEIN (U), RUSSELL NEGAT mg/dL - - - - PROTEIN UA (POCT) Negative mg/dL Negative Negative - - RBC, URINE 0-3 /HPF - - - 0-3 /HPF RBC, URINE, RUSSELL /hpf - - - - Imaging Last XR Hand/Finger - Impression Only XR HAND/WRIST SURVEY ARTHRITIS 1V PA BILATERAL Exam End: 02/19/2022 3:23 PM (Final result) Impression: IMPRESSION: Degenerative changes, no erosions. Data Collector: VIVIANA Transcribe Date/Time: Feb 19 2022 4:11P ... Last MRI Hand - Impression Only No resulted procedures found. Last XR Chest - Impression Only XR CHEST 2V FRONTAL/LAT Exam End: 11/17/2018 10:06 AM (Final result) Impression: IMPRESSION: No acute radiographic abnormality. Data Collector: VIVIANA ... Last XR Cervical Spine - Impression Only No resulted procedures found. Health Maintenance Current Immunizations Reviewed on 06/13/2022 Name Date DT(PEDIATRIC) 04/22/2004 Physical Exam BP 115/59 Pulse 79 Temp (Src) 97.5 (Temporal) Wt 145 lb 6.4 oz (66.0kg) LMP 06/15/2015 Physical Exam Weight 06/18/2022 06/13/2022 05/31/2022 04/19/2022 04/11/2022 WEIGHT 147 lb 145 lb 6.4 oz 147 lb 145 lb 12.8 oz 140 lb Some recent data might be hidden Blood Pressure 06/25/2022 06/24/2022 06/24/2022 06/21/2022 06/20/2022 Systolic 116 116 116 120 110 Diastolic 68 62 62 72 60 Some recent data might be hidden There is currently no information documented on the homunculus. Go to the Rheumatology activity and complete the homunculus joint exam. Joint Exam 06/13/2022 No joint exam has been documented for this visit Impression No specialty comments available. Diagnoses: (M05.79) Rheumatoid arthritis involving multiple sites with positive rheumatoid factor (HCC) (primary encounter diagnosis) (Z79.899) High risk medication use (M87.00) Avascular necrosis (HCC) 57 year old woman with rheumatoid arthritis, +RF, CCP neg, no erosions. She is having significant bilateral knee pain due to severe DJD. It is probably aggravated with her physically demanding job. Quit job now works from home loves her new job Knee DJD s/p R knee replacement 06/2021 Upcoming R THR 06/18/22 and suspect will need L TKR Will send THR for path Patient disease activity exhibits improvement on medication of 50 % since initial visit based on the following means of evaluation: PROMIS-10 Global Physical Function T-Score, pain score, total # of swollen joints, total # of tender joints Plan Orders this visit: Office Visit on 06/13/22 US HAND/WRIST SYNOVIAL SCREEN RT US HAND/WRIST SYNOVIAL SCREEN LT RA refractory to many DMARDs Also with fibromyalgia which adds complexity [place] 6i or [place] in reserve DMARDs on hold due to upcoming THR Await path Will check MSK synovial screen to understand RA burden Return in about 6 months (around 12/11/2022). CC: PCP: Timbo Bright MD [address] [facility] [address] Phone #: [phone] I spent a total of 30 minutes on the date of the service which included preparing to see the patient, [id number] patient care, completing clinical documentation, obtaining and/or reviewing separately obtained history, performing a medically appropriate examination, counseling and educating the patient/family/caregiver, and communicating results to the patient/family/caregiver. Medical Decision Making: Problems: High: Chronic illness with severe change Data: Unique source(s) for external note(s) reviewed: 1 Unique test result(s) reviewed: 1 Unique test(s) ordered: 1 Risk: High: Drug therapy requiring intensive monitoring Medical Decision Making Level: 5 - High Mino Harris MD Rheumatology Date: June 13, 2022 Time: 10:43 AM documented in this encounter [facility] 06-07-2022 Miscellaneous Notes Patient is schedule. Sheyla Christianson Orders are in [place] now. Please contact patient to schedule POLLY. Indira Triana LPN I included my manager ems because this has been issue before in [place]. I'm not sure why you can't see it. It's the only way we are suppose to order the IV venofer as far as I'm aware, which I have been ordering the same way for 4 years. I've also had my station supervisor look into this. Consult to anemia chronic care is not correct. Please contact our pharmacist, Alexei, and he will walk you through placing iron infusion orders. [phone]. Thank you. Indira Triana LPN There are no iron orders nor a hematology consult. Patient states she needs iron infusions prior to surgery. Please advise. Indira Triana LPN Please advise if there are orders. I am unable to see any under episodes or med list. Patient is requesting to schedule iron infusion in [place]. She is having surgery 06/18 and needing this before surgery please reach out to patient polly if she could be worked into schedule as [place] was not able to schedule. documented in this encounter [facility] 06-05-2022 Miscellaneous Notes Upcoming surgery w/ ras on 06/18/22 Patient requesting a call to discuss medications to discontinue prior to surgery Ph.[phone] documented in this encounter [facility] 06-05-2022 Miscellaneous Notes Spoke with patient on phone. Below message relayed to patient per Dr. Harris. Patient verbalizes understanding. Patient instructed to call with any questions or concerns. Yes she can stop her NSAID and MTX 1 week prior to surgery and she can resume 1 week after surgery if she is healing properly The ortho team can prescribe short term opioids as needed before and domonique op Marsha Akhtar RN Patient has been identified by name and date of : Yes . Patient calling for :medication issue. Patient is having a hip replacement on 06/18. She was advised to discontinue her medications 10 days prior to the procedure including the celebrex and gabapentin. They told her anything that is a blood thinner. They advised she be switched to something else during this time ie tramadol or percocet as possibilities. Pharmacy has been updated: Yes . Return call needed: Patient is expecting a call back. Can be reached at phone number listed below.. Patient can be reached at : [phone] documented in this encounter [facility] 05-31-2022 Miscellaneous Notes Addended by: LILIBETH BOLIVAR on: 05/31/2022 01:58 PM Modules accepted: Orders documented in this encounter [facility] 05-31-2022 Instructions Lilibeth Bolivar APRN.CNP - 05/31/2022 11:31 AM EDT PATIENT PREOPERATIVE INSTRUCTIONS Anival Ambriz MD has scheduled you for your procedure at this surgery center: [facility]: [phone] --[address] [place] [address]. On your scheduled day of surgery, please report to Patient Registration, ground floor Please read below carefully for your personalized instructions. Dietary Restrictions: - No solid food after midnight. - You may have 12 ounces of clear liquids (water, clear juices such as apple juice or gatorade, carbonated beverages, clear tea, black coffee, jello) until 2 hours before scheduled arrival at facility. Medications: Unless instructed differently below, stay on all of your medications until your surgery. Approved medications to take the morning of surgery with a sip of water: Zyrtec, Gabapentin, Omeprazole, [place] Thyroid If you start any new medications after today's visit, please contact the surgeon's office. Blood Thinning Medications: - Stop NSAIDS (Ibuprofen, Advil, Aleve, Motrin, Celebrex, Mobic, etc.) 7 days before surgery, as directed by your surgeon. - Stop Aspirin 7 days before surgery, as directed by your surgeon. - Stop Vitamin E, ALL multi-vitamins, herbals and dietary supplements 7 days before surgery. - You may take Tylenol (Acetaminophen) or any of your pain medications that do not contain aspirin or NSAIDS as needed. Important Reminders: - If you use CPAP/BIPAP, bring the machine with you to the surgery center. - If you are prescribed inhalers for breathing, continue using them. - Candy, mints, and tobacco products are NOT permitted the morning of surgery. - Hearing aids, dentures and glasses may be worn the morning of surgery. - NO jewelry, body piercings, makeup, hairpins or contacts are to be worn the day of surgery. If you develop symptoms such as a fever, cold, or flu, or have other changes to your health within TWO DAYS of scheduled surgery or the morning of surgery, please contact the surgery center above. Personal Belongings: -Please have photo ID and insurance cards. -If you do not have a copy of advance directives on file with us, please bring a copy with you on the day of surgery. - Leave ALL valuables and money at home or with family members. For Outpatient Procedures: - YOU MUST HAVE A RESPONSIBLE ENVIRONMENTAL COORDINATOR TAKE YOU HOME. A BRANCH LEAD OR MEDICAL STAFF COORDINATOR CANNOT BE MADE A RESPONSIBLE ENVIRONMENTAL COORDINATOR. - We recommend that a responsible person stays with you overnight to take care of you. - You cannot stay in a hotel alone after outpatient surgery. You will not be permitted to have your surgery, if you do not have someone to take care of you. Arrival Time for Surgery: - The Surgery Center or hospital where you are having surgery will call the afternoon before surgery (or Friday for Friday surgery) with a scheduled arrival time. - If you have not heard by 4 pm, please contact the surgery center above. Please be aware that emergency situations arise, which may delay or change your surgical time. If this happens, we will notify you as soon as possible and regret any inconvenience. If you already have an Advance Directive, please fax a copy to [phone] or email to for it to be added to your chart. If you do not have an Advance Directive, you can find the appropriate form and more information at [email or web address]. We recommend that you complete the Advance Directive form found on the website and bring it with you the day of your surgery. It can be witnessed and scanned into your chart that day. Lilibeth Bolivar APRN.DRE documented in this encounter [facility] 05-31-2022 History and physical note HISTORY AND PHYSICAL EXAMINATION SERVICE DATE: 05/31/2022 SERVICE TIME: 11:28 AM PRIMARY CARE PHYSICIAN: Timbo Bright MD REASON FOR VISIT: Aury Metz is a 57 year old female who is scheduled for Procedure(s): ARTHROPLASTY REPLACE JOINT TOTAL HIP (Right) at the request of Dr. Anival Ambriz for consultation. My final recommendation will be communicated back to the requesting physician by way of shared medical record or letter. Subjective The patient has the following: ACTIVE PROBLEM LIST Awareness of Heartbeats Migraine, Unspecified, With Intractable Migraine, So Stated, Without Mention of Status Migrainosus Gastroesophageal Reflux Disease Anemia Emotional Lability 1.1 Migraine without aura, not intractable [346.10] Intractable Migraine With Aura Without Status Migrainosus 1.5.1 Chronic migraine [346.71] Rheumatoid Arthritis of Multiple Sites Without Organ Or System Involvement With Positive Rheumatoid Factor (Hcc) Drug Allergy Allergy to Sulfa Drugs Rash and Nonspecific Skin Eruption Hypothyroidism Moderate Obstructive Sleep Apnea Acute Pain of Both Knees Knee Joint Stiffness, Bilateral Difficulty Walking Hip Stiffness, Unspecified Laterality Right Lumbar Radiculitis Lumbar Spondylosis Chronic Right-Sided Low Back Pain With Right-Sided Sciatica Rheumatoid Arthritis Involving Both Knees With Positive Rheumatoid Factor (Hcc) Exercise-Induced Asthma Status Post Knee Replacement Raynaud Phenomenon Calcific Tendinitis of Right Shoulder Cervical Radiculopathy Disorder of Acromioclavicular Joint Personal History of Rheumatoid Arthritis History of Hypothyroidism Fibromyalgia Esophageal Web COVID-19 Immunization Status Postponed - COVID-19 VACCINE (1) Postponed until 09/06/2022 09/06/2021 Postponed until 09/06/2022 by Vivien Valdez LPN (Declined at this time) CHIEF COMPLAINT: Pre-op exam HPI: NADIA is a 57 yo seen for PAC due to scheduled above surgery because of OA right hip. 05/05/2022 Dr. Ambriz Aury Metz is a 57 year old patient here for evaluation and management of left knee pain and right hip/groin pain. 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 The problem began limiting activities 1-3 years ago. Currently the pain in the joint is rated at 8 out of 10 with minimal activity. The pain is chronic and constant and is located along the inside aspect. The pain is described as aching. Relieving factors include no relieving factors. There is no specific incident that brought about this pain. Feels as though her right led won't sup[port her left so she would like to start with her hip. PREVIOUS TREATMENTS: Medical Treatments: RX NSAIDS for 3 Months or Greater (Celebrex and methotrexate, prednisone), Steroid Injections Left Knee Physical Therapy: Use of Ambulatory Aid, Shoe Wear, Braces, Orthotics, etc., Activities Modified, and PT Three Months or Greater 1-2 times per week REVIEW OF SYSTEMS: GENERAL: Denies fever, chills malaise and weight loss.. PAIN ASSESSMENT: See HPI. MUSCULOSKELETAL: See HPI. Risk Factors for Total Joint Arthroplasty (TJA) Obesity normal High: BMI > 40 Moderate: BMI 30-40 Normal: BMI < 30 Diabetes normal High: A1C > 8 Moderate: A1C 7-8 Normal: A1C < 7 Smoking normal High: Current smoker Normal: Non smoker Anemia High Risk High: Hgb < 11.5 (women) N/A: Hgb >= 11.5 (women) Nutritional Status normal High: Alb<3.4, or prealb<15, or serum transferrin<200, or total lymphocyte count<1500 Normal: normal labs COPD normal High: dx of COPD Normal: no dx of COPD MRSA normal High: dx of MRSA or positive lab test Normal: no MRSA CKD normal High: eGFR<60 Moderate: eGFR 60-89 Normal: eGFR>90 Hx of DVT / PE normal High: dx of DVT / PE Normal: no dx of DVT / PE Narcotics Use Moderate Risk High:NarxCare >=300 Moderate: 100-299 Normal: 0-99 NIKO High Risk High: dx of NIKO N/A: no dx of NIKO Coagulation normal High:PT Sec>13, or PT INR>1.3, or APTT>32.4, or Plt ct<150k Moderate: on anticoag but none of the above Normal: none Anemia Hemoglobin (g/dL) Date Value 03/19/2022 12.2 02/19/2022 11.6 09/06/2021 11.5 07/03/2021 8.7 NarxCare score NARX Narcotics: 150 (05/06/2022 1:43 PM) Obstructive Sleep Apnea (NIKO) Other Risk Factors Autoimmune Disease REVIEW OF SYSTEMS: General: No weight loss, malaise or fevers. 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 No neurological symptoms or problems. Respiratory: Positive for: asthma (exercise induced, no need for an inhaler in years), obstructive sleep apnea and CPAP/BiPAP compliant. Negative for: COPD, pneumonia within 6 weeks, tobacco use and URI < 2 weeks. Cardiovascular: Positive for: hyperlipidemia (diet controlled) Negative for: anticoagulation therapy, atrial fibrillation, CAD, chest pain, CHF, congenital heart defect, DVT/PE, hypertension, recent ND, murmur/valvular heart disease, open heart surgery and valve surgery. GI: Positive for: GERD (on rx) Negative for: abdominal pain, dysphagia, hepatitis, irritable bowel syndrome, inflammatory bowel disease, liver disease, nausea, pancreatitis, vomiting and ETOH >2 drinks/day. : No history of dysuria, frequency or incontinence, stones or chronic kidney disease. No difficulty urinating, nocturia > 1 time per night or hematuria. 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 Endocrine: Positive for: hypothyroidism (on rx). Negative for: diabetes mellitus. Hematology: Positive for: anemia and iron deficiency anemia (on rx). Negative for: bruises/bleeds easily, transfusion of at least 4 units within 72 hours prior to surgery and chronic anti-coagulation/platelet meds. Oncology: No history of CA metastasis, chemo within 30 days, or radiotherapy within 90 days. No history of oncological symptoms or problems. Psych: No history of psychiatric symptoms or problems. Musculoskeletal: See HPI. +s/p right TKA Skin: Negative for lesions, rash and itching. PAST MEDICAL HISTORY Diagnosis Date Bronchitis, not specified as acute or chronic Dizziness and giddiness Esophageal reflux 10/27/2006 High cholesterol Migraine, unspecified, with intractable migraine, so stated, without mention of status migrainosus Palpitations 06/08/07 Stress echo at [facility] and EF% is 61. RA (rheumatoid arthritis) (HCC) Rheumatoid arthritis(714.0) 05/02/2011 PAST SURGICAL HISTORY Procedure Laterality Date ESOPHAGOSCOPY FLEX BALLOON DILAT <30 MM DIAM 2001 2005 Esophageal dilatation LAPS ABD PRTM&OMENTUM DX W/WO SPEC BR/WA SPX Laparoscopy LIG/TRNSXJ FLP TUBE ABDL/VAG APPR UNI/BI Tubal ligation TOTAL KNEE REPLACEMENT Right 07/02/2021 FAMILY HISTORY Problem Relation Age of Onset Heart Mother murmur COPD Mother other (High Cholesterol) Mother other (vocal cord paralysis ) Mother Hypertension Father Arthritis Maternal Grandmother RA Diabetes Brother Rheumatologic disease Brother Heart Brother Heart Brother mi Diabetes Brother Lipids Sister Breast Cancer Son 18 people on Mom's side of family other (hodgkin) Son Social History Tobacco Use Smoking status: Never Smokeless tobacco: Never Vaping Use Vaping Use: Never used Substance Use Topics Alcohol use: No Drug use: No Prior to Admission medications as of 05/31/22 1127 Medication Sig Last Dose Taking celecoxib (CELEBREX) 200 mg capsule Take 1 capsule by mouth once daily. Taking Yes omeprazole (PRILOSEC) 20 mg capsule Take 1 capsule by mouth once daily. Taking Yes docusate sodium (COLACE) 100 mg capsule Take 1 capsule by mouth twice daily. Taking Yes methotrexate sodium 25 mg/mL soln INJECT 0.6 ML SUBCUTANEOUSLY ONE TIME A WEEK. Taking Yes Insulin Syringe-Needle U-100 0.3 mL 30 gauge x 5/16 syrg USE DIRECTED TO INJECT SUBCUTANEOUS METHOTREXATE ONCE WEEKLY Taking Yes gabapentin (NEURONTIN) 100 mg capsule Take 3 capsules by mouth daily at bedtime. Taking Yes CPAP Pt with known NIKO confirmed by HSAT. AHI normalized with PAP. Has PAP device (Airsense 10 ([id number])). However, not receiving masks through current DME. Requests change. NIKO sx resolved with PAP. Please fit with Dreamwear under nose FFM (not pillows). Needs supplies. Lifetime supplies. Please provide us download in 4 weeks. Taking Yes folic acid 1 mg tablet Take 1 tablet by mouth once daily. Taking Yes thyroid, pork, (ARMOUR THYROID) 60 mg Take 1 tablet by mouth once daily. Taking Yes CPAP Initiate Auto PAP @ 5-20 cm of water with humidification. Mask (per patient preference) optional chin strap (if indicated) , filters, tubing, humidifier and lifetime supplies. Taking Yes acetaminophen (TYLENOL EXTRA STRENGTH) 500 mg tablet Take 2 tablets by mouth every 6 hours as needed for pain for up to 30 doses. Taking Yes Cetirizine (ZYRTEC) 10 mg cap Take 1 capsule by mouth as needed (allergies). Taking Yes No medication comments found. ALLERGIES Allergen Reactions Cephalexin Anaphylaxis, Other: See Comments Throat swelling. Has tolerated augmentin 850mg as op after this episode Aciphex [Rabeprazol* Other: See Comments Chest pain Bactrim [Sulfametho* Swelling eyes swell Carafate [Sucralfat* Vomiting Darvocet-N 100 [Pro* Other: See Comments dizzy severe pain in head Erythromycin Vomiting Iodinated Contrast * Shortness of Breath Vancomycin Itching Scalp itchy Objective PHYSICAL EXAM: General: alert and oriented (x3) and healthy appearance. Pertinent negatives noted - not distressed. Skin: normal color, no rash or lesions. HEENT: EOM intact and pupils equal round. Pertinent negatives noted - no carotid bruit. Cardiovascular: regular rate and rhythm, normal S1 and S2, no rub, murmurs, or gallop. Respiratory: normal breath sounds, no wheezes or crackles. No chest wall deformity or tenderness. Abdomen: soft. Pertinent negatives noted - not tender. Extremities: no deformity, no edema or tenderness, no joint swelling or clubbing. Neurological: normal cognition and motor skills. Gait normal. No weakness or sensory deficit. PAIN ASSESSMENT: Pain Pain Level: 4 Pain Location: Hip-Right Description: Sharp;Aching Duration Amount of Time: 5.5 Duration Units: Months Frequency: Continuous Intervention/Comfort measure: Medication VITALS: BP 128/68 Pulse 83 Temp (Src) 98.7 (Temporal) Resp 16 Ht 5' 5.5 (1.66m) Wt 147 lb (66.7kg) SpO2 98% LMP 06/15/2015 BMI 24.08 kg/(m^2). Diagnostic tests reviewed for today's visit: Lab Value Units Date High Low HB 12.2 g/dL 03/19/2022 15.5 11.5 HCT 36.3 % 03/19/2022 46.0 36.0 WBC 7.31 k/uL 03/19/2022 11.00 3.70 PLT 321 k/uL 03/19/2022 400 150 NA 140 mmol/L 03/19/2022 144 136 K 3.8 mmol/L 03/19/2022 5.1 3.7 GLUC 91 mg/dL 03/19/2022 99 74 BUN 10 mg/dL 03/19/2022 21 7 CREAT 0.57 mg/dL 03/19/2022 0.96 0.58 PTSEC No results within date range. INR No results within date range. APTT No results within date range. ALT 16 U/L 03/19/2022 38 7 AST 22 U/L 03/19/2022 35 13 TBILI 0.2 mg/dL 03/19/2022 1.3 0.2 TSH 0.784 mIU/L 03/19/2022 4.200 0.270 Lab Value Units Date High Low HCGQT No results within date range. UHCG No results within date range. HCG, BODY* No results within date range. Lab Value Units Date High Low ABORHD No results within date range. ABSCREEN No results within date range. No results found for: HBA1C Recent Results (from the past 8760 hour(s)) ECG COMPLETE Collection Time: 05/31/22 11:24 AM Result Value Ventricular Rate 65 Atrial Rate 65 P-R Interval 180 QRS Duration 80 QT Interval 408 QTC Calculation (Bazett) 424 Calculated P Critz 71 Calculated R Critz 20 Calculated T Critz 57 Impression NORMAL SINUS RHYTHM NORMAL ECG Recent Results (from the past 18405 hour(s)) ECHO Collection Time: 02/08/21 7:15 AM Impression CONCLUSIONS: - Technically difficult exam due to body habitus. - Exam indication: Palpitations - The left ventricle is normal in size. Left ventricular systolic function is normal. EF = 61 5% (2D biplane) Normal left ventricular diastolic function. - The right ventricle is normal in size. Right ventricular systolic function is normal. - There are no significant valvular abnormalities. - The patient has not had a prior CC echocardiographic exam for comparison. * * * Final * * * Assessment Anemia Assessment: on rx, new labs pending Hemoglobin (g/dL) Date Value 03/19/2022 12.2 09/06/2021 11.5 Hematocrit (%) Date Value 03/19/2022 36.3 09/06/2021 36.5 WBC (k/uL) Date Value 03/19/2022 7.31 09/06/2021 6.96 Exercise-induced asthma Assessment: pt states h/o, but has not used a inhaler in years Gastroesophageal reflux disease Assessment: controlled on rx Hypothyroidism Assessment: stable on rx Intractable migraine with aura without status migrainosus Assessment: otc analgesics as needed Moderate obstructive sleep apnea Assessment: c/w CPAP Rheumatoid arthritis involving both knees with positive rheumatoid factor (HCC) Assessment: no longer taking MTX, following F rheumatology Status post knee replacement Assessment: hx, right Raynaud phenomenon Assessment: hx, no tx Main Activity Status Index: METS: Climb a flight of stairs or walk up a hill (5.50 METs) DASI Score: 5.5 Patient denies any chest pain or undue shortness of breath with the above physical activity. Clinical Frailty Scale: 3. Well, with treated comorbid disease STOP-Bang Score: Patient over 50 years old Denies snoring loudly Denies feeling tired, fatigued, or sleepy during the daytime Has not been observed to stop breathing or choking/gasping during sleep Denies having high blood pressure BMI less than or equal to 35 kg/m^2 Does not have a large neck Non-male patient STOP-Bang Score: 1 [id number] Score: Age: <65 Sex: female CHF history: No Hypertension history: No Stroke/TIA/thromboembolism history: No Vascular disease history: No Diabetes history: No [id number] Score: 1 ARISCAT Score: Age: 51-80 Preoperative SpO2: >=96% Respiratory infection in the last month: No Preoperative anemia: No Surgical incision: peripheral Duration of surgery: 2-3 hrs Emergency procedure: No ARISCAT Score: 19 ASA Class: 3 ANESTHESIA FINDINGS: Intubation History: No history of difficult intubation Significant Anesthesia Considerations: none Airway History: No history of difficult airway I - PHYSICAL EVALUATION AIRWAYTracheostomy tube not present Mallampati: II. TM distance: >3 FB. Neck ROM: full ROM without neurological symptoms. Mouth opening: adequate. Short neck: no. Thick neck: no DENTAL Dentures, upper: partial. Additional comments: Crowns/back. II - ANESTHESIA PLAN ASA Score: 3 Anesthetic Plan: other Anesthetic plan additional comments: *PACC - anesthesia choice. Informed Consent Anesthetic risks, benefits, alternatives, personnel and consent discussed: yes. Patient / Responsible Democrat agrees to proceed: yes Patient / Surrogate agrees to blood products: Yes Prepared for Surgery: optimally prepared for surgery. Labs, EKG CONSULTS: Patient does not require consults for optimization at this time Planned Anesthetic: other anesthesia choice The Following Tests/Procedures Have Been Initiated: Orders Placed This Encounter >CBC + AUTO DIFF Standing Status: Future Number of Occurrences: 1 Standing Expiration Date: 07/31/2022 >CMP Standing Status: Future Number of Occurrences: 1 Standing Expiration Date: 07/31/2022 Type and Screen, 30 day Standing Status: Future Number of Occurrences: 1 Standing Expiration Date: 07/31/2022 Order Specific Question: [facility] Surgery or Procedure: Answer: Protestant mupirocin (BACTROBAN) 2 % ointment Sig: Apply 0.5 inch with cotton swab (Q-tip) to each nostril in the morning and evening for 5 days prior to and including day of surgery. Dispense: 22 g Refill: 0 ECG COMPLETE Order Comments: Ordered by an unspecified provider Instructions Given to Patient: Instructions located in the after visit summary. Patient given verbal and written preop instructions and voices comprehension and compliance. SIGNATURE: Lilibeth Bolivar APRN.CNP PATIENT NAME: Aury Metz DATE: May 31, 2022 TIME: 11:28 AM PAGER/CONTACT #: documented in this encounter [facility] 05-09-2022 Miscellaneous Notes Last filled 04/11 for 30 capsules with 2 refills - patient should have refills available Request refused FYRosemary to Palomares documented in this encounter [facility] 05-06-2022 History of Presen t illness Narrative Radiology Service Progress Note PATIENT NAME: Aury Metz DATE OF SERVICE: May 06, 2022 TIME: 2:43 PM PATIENT IDENTITY VERIFICATION COMPLETED USING TWO (2) IDENTIFIERS: Name and Date of confirmed by patient verbally. FALL SCREENING: Has the patient had 2 falls in the last year or 1 fall with injury or currently using an Ambulatory Assistive Device (Walker, Cane, Wheelchair, Crutches, etc.)? No PATIENT GENDER DATA: Female. status: : No status: NO. PATIENT RELEVANT IMPLANT DATA REVIEWED: Not Applicable RADIOLOGY DEPARTMENT: General X-ray: Exam(s) Completed: Lower Extremity X-Ray(s): Knee, AP / Lat / Tunne / Merchant Bilateral PERIPHERAL IV DATA: Not applicable SIGNED BY: RT Angel(R) May 06, 2022 2:43 PM documented in this encounter [facility] 04-19-2022 Miscellaneous Notes Called patient to let her know Dr. Harris is agreeable to her taking the Celebrex. She was instructed that she should not take the Mobic and Naproxyn together with the Celebrex, and should only take one NSAID at a time. Patient states understanding. She also states that her left knee is currently very painful and swollen, she says she could not bend it yesterday at all and it looked like she had a baseball in her knee. She took 5mg prednisone that she had left at home yesterday and today, and she said that has helped some but it is still very swollen and painful. She said it is not red or warm. I advised that she might want to contact her PCP just so someone can see it today and assess the situation. Will also let Dr. Harris know. Sonya Monsalve RN Patient has been identified by name and date of : Yes . Patient calling for :general concern. Patient states she has been flaring a bit lately and is asking about being prescribed Celebrex, which was mentioned to her previously. She does take mobic and naproxen but neither seem to be helping. Pharmacy has been updated: Yes . [facility] Return call needed: Patient is expecting a call back. Can be reached at phone number listed below.. Patient can be reached at : [phone] documented in this encounter [facility] 04-11-2022 Instructions Anabela Palomares APRN.CNP - 04/11/2022 2:47 PM EDT PLAN - Omeprazole 20 mg daily - Colace daily - miralax - EGD/COLON - Reduced use of NSAIDs- Mobic/Naproxyn documented in this encounter [facility] 04-11-2022 History of Presen t illness Narrative DEPARTMENT OF GASTROENTEROLOGY - NEW PATIENT/CONSULT REASON FOR VISIT Aury Metz is a 57 year old female who is scheduled at the request of Mino Harris for GERD and Constipation (meds ). My final recommendations will be communicated back to the requesting physician by the way of the shared medical record, fax, or via US Mail HISTORY OF PRESENT ILLNESS Aury Metz is a 57 year old female who presents today for an evaluation of GERD and constipation. PRIOR TEST RESULTS Imaging/Procedures: 06/03/2013- EGD- Impression: - Normal examined duodenum. - Normal stomach. - Normal esophagus. - Dilation attempted in the entire esophagus. Successful. - The DRIVER pH capsule was deployed, which was 6 cm proximal to the EG junction. Symptoms: Has been having increased stomach issues Has been on methotrexate pills; gets nauseated with the pills- will be starting with shots meloxicam and naproxen- for pain; sierra - has been in a flair these past few weeks- taking daily- 2 naproxyn or 1 meloxican Previous EGD with dilation were due to dysphagia symptoms Denies dysphagia and odynophagia at this time Reflux is bad right now; worse with the medication No vomiting, just nauseated with pills -methotrexate for a day and a half Nausea at night with Sierra Taking 10 mg omeprazole daily - started about 2 weeks ago with some improvement Lots Of burping, gas, indigestion BM - iron daily - some constipation- increasing water intake - daily, hard stools - with straining will see blood PAST MEDICAL HISTORY Diagnosis Date Bronchitis, not specified as acute or chronic Dizziness and giddiness Esophageal reflux 10/27/2006 High cholesterol Migraine, unspecified, with intractable migraine, so stated, without mention of status migrainosus Palpitations 06/08/07 Stress echo at [facility] and EF% is 61. RA (rheumatoid arthritis) ([facility]) Rheumatoid arthritis(714.0) 05/02/2011 Allergies: Cephalexin Anaphylaxis, Other: See Comments Comment:Throat swelling. Has tolerated augmentin 850mg as op after this episode Aciphex [Rabeprazol* Other: See Comments Comment:Chest pain Bactrim [Sulfametho* Swelling Comment:eyes swell Carafate [Sucralfat* Vomiting Darvocet-N 100 [Pro* Other: See Comments Comment:dizzy severe pain in head Erythromycin Vomiting Iodinated Contrast * Shortness of Breath Vancomycin Itching Comment:Scalp itchy Current Outpatient Medications Medication Sig Dispense Refill omeprazole (PRILOSEC) 20 mg capsule Take 1 capsule by mouth once daily. 30 capsule 2 docusate sodium (COLACE) 100 mg capsule Take 1 capsule by mouth twice daily. 60 capsule 2 methotrexate sodium 25 mg/mL soln INJECT 0.6 ML SUBCUTANEOUSLY ONE TIME A WEEK. 4 mL 3 Insulin Syringe-Needle U-100 0.3 mL 30 gauge x 5/16 syrg USE DIRECTED TO INJECT SUBCUTANEOUS METHOTREXATE ONCE WEEKLY 50 Each 1 gabapentin (NEURONTIN) 100 mg capsule Take 3 capsules by mouth daily at bedtime. 270 capsule 3 CPAP Pt with known NIKO confirmed by [facility]AT. AHI normalized with PAP. Has PAP device (Airsense 10 ([id number])). However, not receiving masks through current DME. Requests change. NIKO sx resolved with PAP. Please fit with Dreamwear under nose FFM (not pillows). Needs supplies. Lifetime supplies. Please provide us download in 4 weeks. 1 Each 999 folic acid 1 mg tablet Take 1 tablet by mouth once daily. 90 tablet 3 thyroid, pork, (ARMOUR THYROID) 60 mg Take 1 tablet by mouth once daily. 90 tablet 1 meloxicam (MOBIC) 15 mg tablet Take by mouth. (Patient not taking: Reported on 02/19/2022 ) CPAP Initiate Auto PAP @ 5-20 cm of water with humidification. Mask (per patient preference) optional chin strap (if indicated) , filters, tubing, humidifier and lifetime supplies. (Patient not taking: Reported on 02/19/2022 ) 1 Each 0 acetaminophen (TYLENOL EXTRA STRENGTH) 500 mg tablet Take 2 tablets by mouth every 6 hours as needed for pain for up to 30 doses. 60 tablet 0 Cetirizine (ZYRTEC) 10 mg cap Take 1 capsule by mouth as needed (allergies). predniSONE (DELTASONE) 5 mg tablet TAKE 1 TABLET BY MOUTH EVERY DAY (Patient not taking: Reported on 02/19/2022) 90 tablet 2 No current facility-administered medications for this visit. PAST SURGICAL HISTORY Procedure Laterality Date ESOPHAGOSCOPY FLEX BALLOON DILAT <30 MM DIAM 2001 2005 Esophageal dilatation LAPS ABD PRTM&OMENTUM DX W/WO SPEC BR/WA SPX Laparoscopy LIG/TRNSXJ FLP TUBE ABDL/VAG APPR UNI/BI Tubal ligation TOTAL KNEE REPLACEMENT Right 07/02/2021 Social History Tobacco Use Smoking status: Never Smoker Smokeless tobacco: Never Used Substance Use Topics Alcohol use: No Drug use: No FAMILY HISTORY Problem Relation Age of Onset Heart Mother murmur COPD Mother other (High Cholesterol) Mother other (vocal cord paralysis ) Mother Hypertension Father Arthritis Maternal Grandmother RA Diabetes Brother Rheumatologic disease Brother Heart Brother Heart Brother mi Diabetes Brother Lipids Sister Breast Cancer Son 18 people on Mom's side of family other (hodgkin) Son FAMILY HISTORY (grandparents, parents, brothers, sisters, aunts, or uncles) Ulcerative Colitis: No Crohn's Disease: No Colon Cancer: No Colon Polyps: No IBS: No Celiac disease: Yes REVIEW OF SYSTEMS PAIN ASSESSMENT: See HPI GENERAL: No weight loss, malaise or fevers RESPIRATORY: Negative for cough, hemoptysis, wheezing, COPD, dyspnea or shortness of breath CARDIOVASCULAR: Negative for chest pain, leg swelling, CHF or palpitations GI: See HPI PHYSICAL EXAMINATION General appearance: Well appearing, alert, in no acute distress, well-hydrated, well nourished. Skin: Skin color, texture, turgor normal, no suspicious rashes or lesions Head: Normocephalic, no masses, lesions, tenderness or abnormalities Eyes: Anicteric sclera. Pupils are equally round and reactive to light. Extraocular movements are intact. Ears: External ears normal Lungs: Lungs clear to auscultation. No wheezing, rhonchi, rales. Heart: RRR without murmur, gallop, or rubs. No ectopy Abdomen: Normal abdominal exam, Abdomen soft, non-tender. Bowel sounds normal. Extremities: No deformities, edema, skin discoloration, clubbing or cyanosis. Peripheral pulses: Normal Neuro: Gait normal. A&Ox3 Assessment IMPRESSION Ms. Metz is a 57 year old female with a history of esophageal stricture/web, RA on methotrexate. Symptoms are most closely related to medication intake, worse with medication intake: methotrexate and NSAIDS. Symptoms are nausea and reflux. She has been experiencing increased belching. Will get screening colonoscopy and EGD. Will increase omeprazole to 20 mg daily. For constipation from iron use will start daily colace. gluten free diet (Z12.11) Screen for colon cancer (primary encounter diagnosis) (Z87.19) History of esophageal stricture (K21.9) Gastroesophageal reflux disease without esophagitis (R14.2) Belching (D50.9) Iron deficiency anemia, unspecified iron deficiency anemia type PLAN - Omeprazole 20 mg daily - Colace daily - miralax - EGD/COLON - Reduced use of NSAIDs- Mobic/Naproxyn I spent a total of 40 minutes on the date of the service which included preparing to see the patient, [id number] patient care, completing clinical documentation, performing a medically appropriate examination, counseling and educating the patient/family/caregiver and ordering medications, tests, or procedures. Anabela Palomares APRN.CNP 04/11/2022 2:17 PM documented in this encounter [facility] 03-29-2022 Miscellaneous Notes Most recent Rheumatology visit: 03/08/2022 (with Kaylyn Alcazar) Upcoming Rheumatology Appointments - Next 365 Days Visit Type Date Time Department [facility] 06/13/2022 10:00 AM [facility] 08/28/2022 11:00 AM [facility] [place] CBC: CBC Latest Ref Rng & Units 02/19/2022 03/19/2022 WBC 3.70 - 11.00 k/uL 7.34 7.31 HEMOGLOBIN 11.5 - 15.5 g/dL 11.6 12.2 HEMOGLOBIN, RUSSELL 11.5 - 15.5 g/dL - - HEMATOCRIT 36.0 - 46.0 % 35.9(L) 36.3 PLATELETS 150 - 400 k/uL 358 321 ABS NEUT (ANC) 1.45 - 7.50 k/uL 4.00 4.51 ABS NEUT, RUSSELL 1.45 - 7.50 k/uL - - ABS LYMP, RUSSELL 1.00 - 4.00 k/uL - - ABS LYMPH 1.00 - 4.00 k/uL 2.68 2.08 Vitamin D: None on file in the last 6 months LFT: CMP Latest Ref Rng & Units 02/19/2022 03/19/2022 SODIUM 136 - 144 mmol/L 138 140 SODIUM, RUSSELL 136 - 145 mmol/L - - SODIUM, RUSSELL 136 - 145 mmol/L - - POTASSIUM 3.7 - 5.1 mmol/L 3.9 3.8 POTASSIUM, RUSSELL 3.5 - 5.1 mmol/L - - CHLORIDE 97 - 105 mmol/L 100 101 CHLORIDE, RUSSELL 98 - 107 mmol/L - - CO2 22 - 30 mmol/L 26 26 CO2, RUSSELL 21.0 - 32.0 mmol/L - - GLUCOSE 74 - 99 mg/dL 132(H) 91 GLUCOSE (U), RUSSELL NEGAT mg/dL - - GLUCOSE, RUSSELL 70 - 99 mg/dL - - BUN 7 - 21 mg/dL 11 10 BUN, RUSSELL 7 - 18 mg/dL - - CREATININE 0.58 - 0.96 mg/dL 0.58 0.57(L) CREATININE, RUSSELL 0.6 - 1.0 mg/dL - - CALCIUM, RUSSELL 8.5 - 10.1 mg/dL - - CALCIUM, TOTAL 8.5 - 10.2 mg/dL 9.7 9.4 AST 13 - 35 U/L 69(H) 22 AST, RUSSELL 15 - 37 U/L - - ALT 7 - 38 U/L 60(H) 16 ALT, RUSSELL 30 - 65 U/L - - ALKALINE PHOSPHATASE 34 - 123 U/L 123 119 Creatinine: Creatinine Latest Ref Rng & Units 02/19/2022 03/19/2022 CREAT 0.58 - 0.96 mg/dL 0.58 0.57(L) ESR/CRP: ESR, WSR Latest Ref Rng & Units 01/04/2021 02/19/2022 WSR 0 - 20 mm/hr 49(H) 40(H) SED RATE, RUSSELL 0 - 20 mm/hr - - CRP Latest Ref Rng & Units 01/04/2021 02/19/2022 CRP <0.9 mg/dL 0.7 0.7 Uric Acid: None on file in the last 6 months Open Standing (Multiple Instance) Lab Orders Remain Interval Expires Ordered Last Rel. TSH BLD [SQTSH] 4 Every 2 months 08/11/22 08/11/21 03/19/22 Auth. provider: Timbo Bright MD Assoc. diagnoses: Acquired hypothyroidism T4 FREE/FREE THYROX [SQFT4] 4/6 Every 2 months 08/11/22 08/11/21 03/19/22 Auth. provider: Timbo Bright MD Assoc. diagnoses: Acquired hypothyroidism T3 FREE BLD [SQFREET3] / Every 2 months 08/11/22 08/11/21 03/19/22 Auth. provider: Timbo Bright MD Assoc. diagnoses: Acquired hypothyroidism Open Future (Single Instance) Lab Orders Expected Expires Ordered PRE-PROCEDURE & PRE-OPERATIVE COVID [SQPOCOVD] 06/29/21 05/17/22 05/17/21 Auth. provider: Alhaji Francois PA-C Assoc. diagnoses: Primary osteoarthritis of right knee FECAL OCCULT BLOOD TEST [SQIFOBT] 09/06/22 09/06/21 Auth. provider: Ev Berger APRN.DIE CUTTING MACHINE OPERATOR Assoc. diagnoses: Colon cancer screening VITAMIN D 25 HYDROXY [SQVITD] 03/21/22 05/21/22 03/21/22 Auth. provider: Raquel Thomas MD VITAMIN B12 BLOOD [SQB12] 03/21/22 05/21/22 03/21/22 Auth. provider: Raquel Thomas MD Assoc. diagnoses: Rheumatoid arthritis involving both knees with positive rheumatoid factor (HCC), Other fatigue OMEGACHECK [SQOMEGAC] 03/21/22 05/21/22 03/21/22 Auth. provider: Raquel Thomas MD Assoc. diagnoses: Rheumatoid arthritis involving both knees with positive rheumatoid factor (HCC), Other fatigue documented in this encounter [facility] 03-28-2022 Miscellaneous Notes Most recent Rheumatology visit: 03/08/2022 (with Kaylyn Alcazar) Upcoming Rheumatology Appointments - Next 365 Days Visit Type Date Time Department [facility] 06/13/2022 10:00 AM [facility] 08/28/2022 11:00 AM [facility] [place] CBC: CBC Latest Ref Rng & Units 02/19/2022 03/19/2022 WBC 3.70 - 11.00 k/uL 7.34 7.31 HEMOGLOBIN 11.5 - 15.5 g/dL 11.6 12.2 HEMOGLOBIN, RUSSELL 11.5 - 15.5 g/dL - - HEMATOCRIT 36.0 - 46.0 % 35.9(L) 36.3 PLATELETS 150 - 400 k/uL 358 321 ABS NEUT (ANC) 1.45 - 7.50 k/uL 4.00 4.51 ABS NEUT, RUSSELL 1.45 - 7.50 k/uL - - ABS LYMP, RUSSELL 1.00 - 4.00 k/uL - - ABS LYMPH 1.00 - 4.00 k/uL 2.68 2.08 Vitamin D: None on file in the last 6 months LFT: CMP Latest Ref Rng & Units 02/19/2022 03/19/2022 SODIUM 136 - 144 mmol/L 138 140 SODIUM, RUSSELL 136 - 145 mmol/L - - SODIUM, RUSSELL 136 - 145 mmol/L - - POTASSIUM 3.7 - 5.1 mmol/L 3.9 3.8 POTASSIUM, RUSSELL 3.5 - 5.1 mmol/L - - CHLORIDE 97 - 105 mmol/L 100 101 CHLORIDE, RUSSELL 98 - 107 mmol/L - - CO2 22 - 30 mmol/L 26 26 CO2, RUSSELL 21.0 - 32.0 mmol/L - - GLUCOSE 74 - 99 mg/dL 132(H) 91 GLUCOSE (U), RUSSELL NEGAT mg/dL - - GLUCOSE, RUSSELL 70 - 99 mg/dL - - BUN 7 - 21 mg/dL 11 10 BUN, RUSSELL 7 - 18 mg/dL - - CREATININE 0.58 - 0.96 mg/dL 0.58 0.57(L) CREATININE, RUSSELL 0.6 - 1.0 mg/dL - - CALCIUM, RUSSELL 8.5 - 10.1 mg/dL - - CALCIUM, TOTAL 8.5 - 10.2 mg/dL 9.7 9.4 AST 13 - 35 U/L 69(H) 22 AST, RUSSELL 15 - 37 U/L - - ALT 7 - 38 U/L 60(H) 16 ALT, RUSSELL 30 - 65 U/L - - ALKALINE PHOSPHATASE 34 - 123 U/L 123 119 Creatinine: Creatinine Latest Ref Rng & Units 02/19/2022 03/19/2022 CREAT 0.58 - 0.96 mg/dL 0.58 0.57(L) ESR/CRP: ESR, WSR Latest Ref Rng & Units 01/04/2021 02/19/2022 WSR 0 - 20 mm/hr 49(H) 40(H) SED RATE, RUSSELL 0 - 20 mm/hr - - CRP Latest Ref Rng & Units 01/04/2021 02/19/2022 CRP <0.9 mg/dL 0.7 0.7 Uric Acid: None on file in the last 6 months Open Standing (Multiple Instance) Lab Orders Remain Interval Expires Ordered Last Rel. TSH BLD [SQTSH] 4/6 Every 2 months 08/11/22 08/11/21 03/19/22 Auth. provider: Timbo Bright MD Assoc. diagnoses: Acquired hypothyroidism T4 FREE/FREE THYROX [SQFT4] 4/6 Every 2 months 08/11/22 08/11/21 03/19/22 Auth. provider: Timbo Bright MD Assoc. diagnoses: Acquired hypothyroidism T3 FREE BLD [SQFREET3] 4/6 Every 2 months 08/11/22 08/11/21 03/19/22 Auth. provider: Timbo Bright MD Assoc. diagnoses: Acquired hypothyroidism Open Future (Single Instance) Lab Orders Expected Expires Ordered PRE-PROCEDURE & PRE-OPERATIVE COVID [SQPOCOVD] 06/29/21 05/17/22 05/17/21 Auth. provider: Alhaji Francois PA-C Assoc. diagnoses: Primary osteoarthritis of right knee FECAL OCCULT BLOOD TEST [SQIFOBT] 09/06/22 09/06/21 Auth. provider: Ev Berger APRN.DIE CUTTING MACHINE OPERATOR Assoc. diagnoses: Colon cancer screening VITAMIN D 25 HYDROXY [SQVITD] 03/21/22 05/21/22 03/21/22 Auth. provider: Raquel Thomas MD VITAMIN B12 BLOOD [SQB12] 03/21/22 05/21/22 03/21/22 Auth. provider: Raquel Thomas MD Assoc. diagnoses: Rheumatoid arthritis involving both knees with positive rheumatoid factor (HCC), Other fatigue OMEGACHECK [SQOMEGAC] 03/21/22 05/21/22 03/21/22 Auth. provider: Raquel Thomas MD Assoc. diagnoses: Rheumatoid arthritis involving both knees with positive rheumatoid factor (HCC), Other fatigue documented in this encounter [facility] 03-21-2022 Instructions Raquel Thomas MD - 03/21/2022 11:51 AM EDT Lifestyle modifications discussed today: Nutrition: Try dairy free and processed free diet Food to eat: - Vegetables and fruits - aim for 3-5 portions/day, eat more vegetables than fruits, increase the variety of vegetables and fruits you eat. - Whole grains ( steel cut oatmeal, quinoa, brown rice, buckwheat, millet) - 1/2 cup, cooked is one portion - Legumes (beans, lentils, garbanzo beans) - 1/2 cup, cooked is one portion, they are high in fiber (12-16 grams per cup) and protein (10-18 grams per cup) - Soy, edamame ( and not soy isolates,processed soy) - 1/2 cup, cooked is one portion - Nuts (walnuts, almonds, hazelnuts, peanuts) and seeds ( flax seeds, awilda seeds, sesame seeds) - 1 handful a day, raw is one portion - Flaxseed (ground), awilda seeds (pre-soaked) or hemp seeds - they are rich in [place] 3 and are a great source of plant-based protein,. They are great addition to salad, oatmeal, smoothies - Fish 1-2 times a week - wild Al[place]an salmon, steward, sardines, black cod, ocean trout are examples of fish high on [place] 3 and low on Mercury (check http://www.ewg.org for information about mercury and pesticides) - Use Extra [place] Oil and Vinegar (Apple Cider or Wine Vinegar) as primary salad dressing and avoid processed premixed salad dressings - Add spices when cooking - turmeric, narendra, garlic, parsley, thyme, basil, black pepper, red pepper. They are nutrient-rich foods and have anti-inflammatory properties - Cooking method matters - boiling, baking, steaming (cooking in moist environment) is better than frying, barbecuing Limit consumption of: - Ultra-Processed food ( packaged food, food that have more that 5 ingredients) and that includes processed meat ( salami, tolliver, ham, lunch meats) - Processed meat - Sugar and artificial sugar substitutes. Limit added sugar to less than 20 gram /day - Refined grains (white flour, white rice, bagel, bread, croissant) - king food (cypriot fries, chicken wings, king vegetables) - fast food restaurants/frozen dinners - high saturated fats that are usually present in creams, butter, calvin, cheese Culinary medicine resources: You can find a lot of healthy recipes on [facility] Web site under patient resources/recipes ([email or web address]://[email or web address] [email or web address]/wellness/patient-resou rces/recipes) There are many healthy whole foods Mediterranean recipes at [email or web address]/showcase/intelmer hauser.In the Kitchen Videos are made by our Department of Wellness and Preventive Medicines' Chef Alexei German and Dr. Prem Castrejon How not to cookbook or How not to diet cookbook by Dr.Michael Steel - provides plant based whole food recipies What to eat when cookbook by Dr.Michael Castrejon - discusses benefits of intermittent fasting ( eat during 8 hr period a day) Fast food, Good Food cookbook by Dr.Andrew Rosales - offers typical Mediterranean diet recipes Physical Activity: Yoga - practicing regularly yoga has shown positive benefits on back pain, joint pain, stress, and anxiety. Chair yoga can be practiced by anyone and does not need any prior training. There is a free chair yoga [facility] on [facility] under p[patient resources. For yoga - click on the Come As You Are tab yoga lessons are presented in 5 parts. Here is the link to the website: [email or web address]/de [email or web address]/wellness/patient-resour katya/instructional-videos?utm_camp aign=patientresources-url&utm_med ium=&utm_source=redirect&utm_cont ent=patientresources-url#bola-chi- tab Vitamins/Supplements: Will check Vit D , B12 and [place] levels With any supplements or medications if you develop any rashes, swelling, difficulty breathing or any other concerning symptom please seek immediate medical attention. Mind&Body therapy: Consider 4-7-8 breathing technique, which is also known as smell the roses - hold your breath - blow the candles . You should aim at doing deep breathing exercises 4 times every morning, 4 times every evening and when you are feel stressed or anxious. Consider using Apps like: - Mindful Moments by [facility] Camryn (free) - Insight Timer (Free)- has more than 130 000 different guided meditations Consider keeping Gratitude Journal (write 3 things that you are grateful for every day) Additional resources: The [facility] for Integrative and Lifestyle Medicine offers free virtual classes with yoga, guided meditation, cooking classes and educational lectures . You can sign up at: [email or web address] RTC 3 months documented in this encounter [facility] 03-21-2022 History of Presen t illness Narrative This Team Access Model visit is a virtual encounter done via ZOOM platform. It required patient-provider interaction for the medical decision making as documented below. At the beginning of this telehealth encounter, I verified with the patient their name and date of . SUBJECTIVE: 57 year old female who presents for comprehensive problem evaluation. Consultation requested by Mino Harris MD for an opinion regarding RA. My final recommendations will be communicated back to the requesting physician by way of shared medical record or letter via US mail. Aury was diagnosed with RA a couple of years ago. She tried amino acid injection, tart simmons juice and did not respond to that. Than she was placed on MTX, Gabapentin, Mobic or Naproxen , Folic acid. Have tried to emmy off Methotrexate but that cause flares. Take Prednisone only if she has severe flare p has not been on Prednisone recently. Has pain in bilateral wrists at the moment.It is very painful even to stretch them Had R knee replacement in the past , will discuss in March left knee replacement with ortho. Also has hip pain- was told that she likely has avascular necrosis. Has NIKO - started on CPAP But there is a problem with being covered by the insurance and working to get it back. Was waking more refreshed when she was using the CPAP. Has hypothyroidism - take Armot Thyroid, last TSH was normal. 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 MSQ 63 ROS is positive for: anger, mood swings, restlessness, stiffness, muscle pain, joint pain, belching, heartburn, headache, dizziness, insomnia Nutrition: Does a lot of microgenesis, change her eating habits and gain her strength Last year she and her did Keto diet and at that time she felt great but start having pain when she transition to regular food - think that is due to adding sugar and processed food. Eat Gluten free diet for years - got swollen if eat by mistakes Breakfast: fresh tomatoes, olives, kiwi, egg whites Lunch: salad , micro greens - kale , broccoli, broccoli salad- usually eat with [place] Oil and Vinegar or Ranch dressing Beef - eat once a week because of anemia Like salmon - but is expensive Chicken - do not like it 75% vegetarian meal Dairy - eat every day , was told by her chiropractor to stop it but she has not tried it yet. Water/tea/coffee: water, coffee with oat creamer, brown sugar, black tea with honey , no soda Smoking/alcohol consumption: no smoking and no alcohol Bowels: daily, no problem Exercise: has bad knee and hips, if she stretch- the next day - she hurst, stretch in the morning before getting out of bed Supplements: Iron - had iron infusions in the past, now with iron pill daily her levels are kept in a nrmal level Vit D - has taken it on and off, currently is out of it, need to buy new one Vit B complex - started it by herself when her blood work was abnormal and think it helps on fatigue, has never had her levels checked Integrative treatments:PT, care worker, live in [place]- there are pools but all classes are during work hours. PAST MEDICAL HISTORY Diagnosis Date Bronchitis, not specified as acute or chronic Dizziness and giddiness Esophageal reflux 10/27/2006 High cholesterol Migraine, unspecified, with intractable migraine, so stated, without mention of status migrainosus Palpitations 06/08/07 Stress echo at [facility] and EF% is 61. RA (rheumatoid arthritis) ([facility]) Rheumatoid arthritis(714.0) 05/02/2011 PAST SURGICAL HISTORY Procedure Laterality Date ESOPHAGOSCOPY FLEX BALLOON DILAT <30 MM DIAM 2001 2005 Esophageal dilatation LAPS ABD PRTM&OMENTUM DX W/WO SPEC BR/WA SPX Laparoscopy LIG/TRNSXJ FLP TUBE ABDL/VAG APPR UNI/BI Tubal ligation TOTAL KNEE REPLACEMENT Right 07/02/2021 Social History Tobacco Use Smoking status: Never Smoker Smokeless tobacco: Never Used Substance Use Topics Alcohol use: No Drug use: No FAMILY HISTORY Problem Relation Age of Onset Heart Mother murmur COPD Mother other (High Cholesterol) Mother other (vocal cord paralysis ) Mother Hypertension Father Arthritis Maternal Grandmother RA Diabetes Brother Rheumatologic disease Brother Heart Brother Heart Brother mi Diabetes Brother Lipids Sister Breast Cancer Son 18 people on Mom's side of family other (hodgkin) Son ALLERGIES Allergen Reactions Cephalexin Anaphylaxis, Other: See Comments Throat swelling. Has tolerated augmentin 850mg as op after this episode Aciphex [Rabeprazol* Other: See Comments Chest pain Bactrim [Sulfametho* Swelling eyes swell Carafate [Sucralfat* Vomiting Darvocet-N 100 [Pro* Other: See Comments dizzy severe pain in head Erythromycin Vomiting Iodinated Contrast * Shortness of Breath Vancomycin Itching Scalp itchy Current Outpatient Medications Medication Sig Dispense Refill gabapentin (NEURONTIN) 100 mg capsule Take 3 capsules by mouth daily at bedtime. 270 capsule 3 Insulin Syringe-Needle U-100 1 mL 30 gauge x 5/16 syrg Use as directed to inject subcutaneous methotrexate once weekly 12 Each 3 methotrexate sodium 25 mg/mL soln Inject 0.6 mL subcutaneously one time a week. 4 mL 3 CPAP Pt with known NIKO confirmed by HSAT. AHI normalized with PAP. Has PAP device (Airsense 10 ([id number])). However, not receiving masks through current DME. Requests change. NIKO sx resolved with PAP. Please fit with Dreamwear under nose FFM (not pillows). Needs supplies. Lifetime supplies. Please provide us download in 4 weeks. 1 Each 999 folic acid 1 mg tablet Take 1 tablet by mouth once daily. 90 tablet 3 thyroid, pork, (ARMOUR THYROID) 60 mg Take 1 tablet by mouth once daily. 90 tablet 1 meloxicam (MOBIC) 15 mg tablet Take by mouth. (Patient not taking: Reported on 02/19/2022 ) CPAP Initiate Auto PAP @ 5-20 cm of water with humidification. Mask (per patient preference) optional chin strap (if indicated) , filters, tubing, humidifier and lifetime supplies. (Patient not taking: Reported on 02/19/2022 ) 1 Each 0 acetaminophen (TYLENOL EXTRA STRENGTH) 500 mg tablet Take 2 tablets by mouth every 6 hours as needed for pain for up to 30 doses. 60 tablet 0 Cetirizine (ZYRTEC) 10 mg cap Take 1 capsule by mouth as needed (allergies). predniSONE (DELTASONE) 5 mg tablet TAKE 1 TABLET BY MOUTH EVERY DAY (Patient not taking: Reported on 02/19/2022) 90 tablet 2 No current facility-administered medications for this visit. PHYSICAL EXAMINATION: VS: LMP 06/15/2015 (Exact Date) Appearing consistent with real age, interactive, well nourished and happy A&Ox3, NAD Musculoskeletal - able to move neck- flexion and extension, wrist - flexion and extension ( with pain) Lung: breathing non-labored, able to talk with full sentences without SOB Neuro: no obvious deficit Contains abnormal data SED RATE WESTERGREN Order: [id number] Status: Final result Visible to patient: Yes (seen) Dx: Rheumatoid arthritis involving multip... 0 Result Notes Component Ref Range & Units 1 mo ago (02/19/22) 1 yr ago (01/04/21) 1 yr ago (10/05/20) 2 yr ago (03/15/20) 2 yr ago (10/27/19) 2 yr ago (04/29/19) 3 yr ago (07/29/18) Sed Rate, Westergren 0 - 20 mm/hr 40 High 49 High 20 34 High 40 High IRON + TIBC Order: [id number] Status: Final result Visible to patient: Yes (seen) Dx: Iron deficiency anemia, unspecified i... 0 Result Notes Component Ref Range & Units 2 d ago 6 mo ago 8 mo ago 1 yr ago 13 yr ago Iron 41 - 186 ug/dL 51 31 Low 27 Low 77 150 High R TIBC 232 - 386 ug/dL 267 269 262 326 334 R Transferrin Saturation 15.0 - 57.0 % 19.1 12 Low R 10 Low R 24 R 45 R Resulting Agency [facility] Contains abnormal data LIPID PANEL BASIC Order: [id number] Status: Final result Visible to patient: Yes (seen) Dx: Rheumatoid arthritis involving multip... 0 Result Notes 1 HM Topic Component Ref Range & Units 1 yr ago (10/21/20) 4 yr ago (03/02/18) 4 yr ago (01/01/18) 4 yr ago (12/01/17) 11 yr ago (02/22/11) Cholesterol, Total <200 mg/dL 236 High 240 High CM 246 High CM 239 High CM 181 R Comment: <200 mg/dL, Desirable 200-239 mg/dL, Borderline high >239 mg/dL, High Triglyceride <150 mg/dL 66 84 CM 114 CM 106 CM 57 R Comment: <150 mg/dL, Normal 150-199 mg/dL, Borderline high 200-499 mg/dL, High >499 mg/dL, Very high HDL Cholesterol >39 mg/dL 96 75 CM 97 CM 89 CM 71 R Comment: 40-59 mg/dL, Acceptable >59 mg/dL, High: Negative risk factor for coronary heart disease <40 mg/dL, Low: Positive risk factor for coronary heart disease LDL Cholesterol <100 mg/dL 127 High 148 High CM 126 High CM 129 High CM 99 R Non HDL Cholesterol <130 mg/dL 140 High 165 High CM 149 High CM 150 High CM Fasting Time hrs 13 12 Unknown 13 ASSESSMENT / PLAN: 1. RA - discussed chair yoga and stretching, discussed water exercises- will refer to aquatics, will try Mediterranean diet with eliminating dairy and ultra-processed food 2. NIKO - work with the insurance and when available, start using the CPAP since you are feeling more rested when using it. 3. Fatigue - will check Vit B12, Vit D , discussed stretching, stress management, dietary changes Lifestyle modifications discussed today: Nutrition: Try dairy free and processed free diet Food to eat: - Vegetables and fruits - aim for 3-5 portions/day, eat more vegetables than fruits, increase the variety of vegetables and fruits you eat. - Whole grains ( steel cut oatmeal, quinoa, brown rice, buckwheat, millet) - 1/2 cup, cooked is one portion - Legumes (beans, lentils, garbanzo beans) - 1/2 cup, cooked is one portion, they are high in fiber (12-16 grams per cup) and protein (10-18 grams per cup) - Soy, edamame ( and not soy isolates,processed soy) - 1/2 cup, cooked is one portion - Nuts (walnuts, almonds, hazelnuts, peanuts) and seeds ( flax seeds, awilda seeds, sesame seeds) - 1 handful a day, raw is one portion - Flaxseed (ground), awilda seeds (pre-soaked) or hemp seeds - they are rich in [place] 3 and are a great source of plant-based protein,. They are great addition to salad, oatmeal, smoothies - Fish 1-2 times a week - wild [place] salmon, steward, sardines, black cod, ocean trout are examples of fish high on [place] 3 and low on Mercury (check http://www.ewg.org for information about mercury and pesticides) - Use Extra [place] Oil and Vinegar (Apple Cider or Wine Vinegar) as primary salad dressing and avoid processed premixed salad dressings - Add spices when cooking - turmeric, narendra, garlic, parsley, thyme, basil, black pepper, red pepper. They are nutrient-rich foods and have anti-inflammatory properties - Cooking method matters - boiling, baking, steaming (cooking in moist environment) is better than frying, barbecuing Limit consumption of: - Ultra-Processed food ( packaged food, food that have more that 5 ingredients) and that includes processed meat ( salami, tolliver, ham, lunch meats) - Processed meat - Sugar and artificial sugar substitutes. Limit added sugar to less than 20 gram /day - Refined grains (white flour, white rice, bagel, bread, croissant) - king food (cypriot fries, chicken wings, king vegetables) - fast food restaurants/frozen dinners - high saturated fats that are usually present in creams, butter, calvin, cheese Culinary medicine resources: You can find a lot of healthy recipes on [facility] Web site under patient resources/recipes ([email or web address] [email or web address]/wellness/patient-resou rces/recipes) There are many healthy whole foods Mediterranean recipes at https://[email or web address]/showcase/inthezack coonen.In the Kitchen Videos are made by our Department of Wellness and Preventive Medicines' Community Health Counselorrochelle German and Dr. Prem Castrejon How not to cookbook or How not to diet cookbook by Dr.Michael Steel - provides plant based whole food recipies What to eat when cookbook by Dr.Michael Castrejon - discusses benefits of intermittent fasting ( eat during 8 hr period a day) Fast food, Good Food cookbook by Dr.Andrew Rosales - offers typical Mediterranean diet recipes Physical Activity: Yoga - practicing regularly yoga has shown positive benefits on back pain, joint pain, stress, and anxiety. Chair yoga can be practiced by anyone and does not need any prior training. There is a free chair yoga video on [facility] under p[patient resources. For yoga - click on the Come As You Are tab yoga lessons are presented in 5 parts. Here is the link to the website: [email or web address]/de partments/wellness/patient-resour katya/instructional-videos?utm_camp aign=patientresources-url&utm_med ium=&utm_source=redirect&utm_cont ent=patientresources-url#bola-chi- tab Vitamins/Supplements: Will check Vit D , B12 and [place] levels With any supplements or medications if you develop any rashes, swelling, difficulty breathing or any other concerning symptom please seek immediate medical attention. Mind&Body therapy: Consider 4-7-8 breathing technique, which is also known as smell the roses - hold your breath - blow the candles . You should aim at doing deep breathing exercises 4 times every morning, 4 times every evening and when you are feel stressed or anxious. Consider using Apps like: - Mindful Moments by [facility] Camryn (free) - Insight Timer (Free)- has more than 130 000 different guided meditations Consider keeping Gratitude Journal (write 3 things that you are grateful for every day) Additional resources: The [facility] for [facility]ative and Lifestyle [facility] offers free virtual classes with yoga, guided meditation, cooking classes and educational lectures . You can sign up at: [email or web address] RTC 3 months I spent a total of 60 minutes of face time evaluating and counseling patient via virtual platform and completing the clinical documentation. All of the patient's questions and concerns were addressed Follow up visit planning discussed Raquel Thomas MD documented in this encounter [facility] 03-08-2022 History of Presen t illness Narrative Images from the original note were not included. [facility] Rheumatology Rheumatology Pharmacy Medication Education The initial consult was conducted virtually with the patient. Patient Name: Aury Metz Reason for visit: Injection teaching for SC methotrexate Rheumatology diagnosis: Rheumatoid Arthritis Referring Rheumatology Provider: Mino Harris MD Date of service: 03/08/2022 Aury Metz is a 57 year old patient with Rheumatoid Arthritis last seen by Dr. Harris on 02/19/22. Patient was advised to switch from oral to SC methotrexate Rheum pharmD requested to complete injection teaching for SC methotrexate Patient seen today for teaching. Patient reports she has self-injected medications previously. She was previously on SC methotrexate, but had issues with pain with injections, so wanted to discuss technique again. Medication Education Counseled patient on SC methotrexate dosing, frequency, appropriate administration for self injection, handling, storage, traveling recommendations Patient did not have syringes yet (pharmacy needed to order), so was unable to complete injection today during visit Readiness to Learn Cognitive ability: Alert and oriented Motivation to Learn: Eager Family Support: Unable to assess - Family not present Instruction Provided to: Patient Instruction Provided by: pharmacist Patient Learns Best By: Individual Instruction Factors Affecting Learning: None Physical Limitations Affecting Learning: None Assessment/Plan: 1. Rheumatoid arthritis involving multiple sites with positive rheumatoid factor (HCC) - ICD9: 714.0, ICD10: M05.79 (primary diagnosis) 2. Injection education, encounter for - ICD9: V65.49, ICD10: Z71.89 Assessment Reviewed SC methotrexate injection administration in detail. Patient only had methotrexate vials and has not received the syringes yet as the pharmacy needed to order them, so was unable to complete injection today. Patient feels more comfortable with restarting injections after further discussion today though. Plans to restart on own once she receives syringes and will reach out with any questions/concerns. Plan: Next rheumatology pharmD visit: No f/up with rheum pharmD needed at this time. Patient will reach out with any issues, ADRs. Next rheumatology MD/CAMRYN visit: 06/13/22 (Dr. Harris), 09/06/22 (FUNMILAYO Membreno) Next labs due: 1 month Kaylyn Alcazar PharmD Rheumatology Clinical Qc Tech documented in this encounter [facility] 03-07-2022 Miscellaneous Notes Most recent Rheumatology visit: 02/19/2022 (with Mino Harris) Upcoming Rheumatology Appointments - Next 365 Days Visit Type Date Time Department [facility] 06/13/2022 10:00 AM [facility] 08/28/2022 11:00 AM [facility] [place] CBC: CBC Latest Ref Rng & Units 09/06/2021 02/19/2022 WBC 3.70 - 11.00 k/uL 6.96 7.34 HEMOGLOBIN 11.5 - 15.5 g/dL 11.5 11.6 HEMOGLOBIN, RUSSELL 11.5 - 15.5 g/dL - - HEMATOCRIT 36.0 - 46.0 % 36.5 35.9(L) PLATELETS 150 - 400 k/uL 403(H) 358 ABS NEUT (ANC) 1.45 - 7.50 k/uL - 4.00 ABS NEUT, RUSSELL 1.45 - 7.50 k/uL - - ABS LYMP, RUSSELL 1.00 - 4.00 k/uL - - ABS LYMPH 1.00 - 4.00 k/uL - 2.68 Vitamin D: None on file in the last 6 months LFT: CMP Latest Ref Rng & Units 07/03/2021 02/19/2022 SODIUM 136 - 144 mmol/L 139 138 SODIUM, RUSSLEL 136 - 145 mmol/L - - SODIUM, RUSSELL 136 - 145 mmol/L - - POTASSIUM 3.7 - 5.1 mmol/L 4.0 3.9 POTASSIUM, RUSSELL 3.5 - 5.1 mmol/L - - CHLORIDE 97 - 105 mmol/L 104 100 CHLORIDE, RUSSELL 98 - 107 mmol/L - - CO2 22 - 30 mmol/L 23 26 CO2, RUSSELL 21.0 - 32.0 mmol/L - - GLUCOSE 74 - 99 mg/dL 110(H) 132(H) GLUCOSE (U), RUSSELL NEGAT mg/dL - - GLUCOSE, RUSSELL 70 - 99 mg/dL - - BUN 7 - 21 mg/dL 13 11 BUN, RUSSELL 7 - 18 mg/dL - - CREATININE 0.58 - 0.96 mg/dL 0.52(L) 0.58 CREATININE, RUSSELL 0.6 - 1.0 mg/dL - - CALCIUM, RUSSELL 8.5 - 10.1 mg/dL - - CALCIUM, TOTAL 8.5 - 10.2 mg/dL 9.1 9.7 AST 13 - 35 U/L - 69(H) AST, RUSSELL 15 - 37 U/L - - ALT 7 - 38 U/L - 60(H) ALT, RUSSELL 30 - 65 U/L - - ALKALINE PHOSPHATASE 34 - 123 U/L - 123 Creatinine: Creatinine Latest Ref Rng & Units 07/03/2021 02/19/2022 CREAT 0.58 - 0.96 mg/dL 0.52(L) 0.58 ESR/CRP: ESR, WSR Latest Ref Rng & Units 01/04/2021 02/19/2022 WSR 0 - 20 mm/hr 49(H) 40(H) SED RATE, RUSSELL 0 - 20 mm/hr - - CRP Latest Ref Rng & Units 01/04/2021 02/19/2022 CRP <0.9 mg/dL 0.7 0.7 Uric Acid: None on file in the last 6 months Open Standing (Multiple Instance) Lab Orders Remain Interval Expires Ordered Last Rel. TSH BLD [SQTSH] 5/6 Every 2 months 08/11/22 08/11/21 09/06/21 Auth. provider: Timbo Bright MD Assoc. diagnoses: Acquired hypothyroidism T4 FREE/FREE THYROX [SQFT4] 5/6 Every 2 months 08/11/22 08/11/21 09/06/21 Auth. provider: Timbo Bright MD Assoc. diagnoses: Acquired hypothyroidism T3 FREE BLD [SQFREET3] 5/6 Every 2 months 08/11/22 08/11/21 09/06/21 Auth. provider: Timbo Bright MD Assoc. diagnoses: Acquired hypothyroidism Open Future (Single Instance) Lab Orders Expected Expires Ordered URINALYSIS, DIPSTICK ONLY [SQUA] 03/14/22 03/16/21 Auth. provider: Allen Villa MD Assoc. diagnoses: Primary osteoarthritis of left knee, Pre-operative clearance PRE-PROCEDURE & PRE-OPERATIVE COVID [SQPOCOVD] 06/29/21 05/17/22 05/17/21 Auth. provider: Alhaji Francois PA-C Assoc. diagnoses: Primary osteoarthritis of right knee FECAL OCCULT BLOOD TEST [SQIFOBT] 09/06/22 09/06/21 Auth. provider: Ev Berger APRN.HERI Assoc. diagnoses: Colon cancer screening CBC + DIFF [SQCBCDIF] 10/08/21 09/07/22 09/07/21 Auth. provider: Ev Berger APRN.DIE CUTTING MACHINE OPERATOR Assoc. diagnoses: Iron deficiency anemia, unspecified iron deficiency anemia type IRON + TIBC [SQIRON] 10/08/21 09/07/22 09/07/21 Auth. provider: Ev Berger APRN.DIE CUTTING MACHINE OPERATOR Assoc. diagnoses: Iron deficiency anemia, unspecified iron deficiency anemia type FERRITIN BLD [SQFERR] 10/08/21 09/07/22 09/07/21 Auth. provider: Ev Berger APRN.DIE CUTTING MACHINE OPERATOR Assoc. diagnoses: Iron deficiency anemia, unspecified iron deficiency anemia type COMP METABOLIC PANEL [SQCMP] 03/18/22 04/21/22 02/25/22 Auth. provider: Mino Harris MD Assoc. diagnoses: Elevated LFTs Marsha Akhtar RN documented in this encounter [facility] 03-04-2022 Miscellaneous Notes Faxed RX and pertinent information to [facility] [employer]. Patient wanting to change [employer] companies. Kerrie Carmona LPN documented in this encounter [facility] 03-04-2022 History of Presen t illness Narrative NEW PATIENT (CONSULT) HISTORY AND PHYSICAL EXAM PRIMARY CARE PHYSICIAN: Timbo Bright MD REASON FOR CONSULT: NIKO REFERRING PHYSICIAN: Ev Berger APRN.CNS CHIEF COMPLAINT: I need help getting my PAP equipment. Consultation requested by Ev Berger APRN.CNS for an opinion regarding chief complaint of Patient presents with: New NI Sleep: Consult Obstructive Sleep Apnea and my final recommendations will be communicated back to the requesting physician by way of shared medical record or letter via [place] mail. HISTORY OF PRESENT ILLNESS: Aury Metz is a 57 year old female, with a PMH significant for NIKO as determined by overnight HSAT performed on 01/12/19 showing LJ of 23.6 with satas as low as 68% and 15% of study with O2 sat <90%. Patient underwent that sleep study at the time due to nocturnal palpitations - saw Dr. Wren who felt cardiac workup was unremarkable per pt. Patient also would have episodes where she would wake up and be sob next to the bed. Pt states that her insurance would not allow her to get a new mask, after the receiving regular masks for some time. States when mask wore out and began leaking. States took time to get used to the PAP. Once on it was doing ok. States palpitations resolved. Has not used PAP in some time as she was unable to get a mask and hers was shot. Feels that she slept better while on PAP. Currently is saige to get 4 hours without PAP due to frequent awakening. No issues falling asleep to start the night. No RLS symptoms. No parasomnias. More awake during the day with PAP. Prior to not having a mask and going back on review of 1 year of data from actual device. Days used ws 129 of 365 - avg use of 4.0 hours. 95% pressure appears to be 12.1 cmH2O. AHI 3.9. PAP set at 5 - 20 cmH2O. No RLS symptoms. No history of parasomnias. Again, without PAP has palpitations, wakes with SOB, sleep non restorative, AM headaches, and frequent awakenings through the night -- these sxs all resolve with PAP therapy. Sleep Questionnaire Data Depression Screening 04/18/2020 02/16/2022 03/04/2022 PHQ-2 Score 0 0 0 PHQ-9 Score 0 - 8 PED PHQ-9 04/18/2020 02/16/2022 03/04/2022 Little interest or pleasure in doing things Not at all Not at all Not at all Feeling down, depressed, or hopeless Not at all Not at all Not at all Trouble falling or staying asleep, or sleeping too much Not at all - Several days Feeling tired or having little energy Not at all - Several days Poor appetite or overeating Not at all - Nearly every day Feeling bad about yourself - or that you are a failure or have let yourself or your family down Not at all - Not at all Trouble concentrating on things, such as reading the newspaper or watching television Not at all - Nearly every day Moving or speaking so slowly that other people could have noticed. Or the opposite - being so fidgety or restless that you have been moving around a lot more than usual Not at all - Not at all Thoughts that you would be better off , or of hurting yourself in some way Not at all - Not at all If you checked off any problems, how difficult have these problems made it for you to do your work, take care of things at home, or get along with other people? Not difficult at all - Somewhat difficult PHQ-9 Score 0 (None-Minimal Depression) - 8 (Mild Depression) Maybell Sleepiness Scale 04/18/2020 02/16/2022 03/04/2022 Score - - Incomplete REVIEW OF SYSTEMS GENERAL:No weight loss, malaise or fevers. HEENT:Negative for frequent or significant headaches, No changes in hearing or vision, no nose bleeds or other nasal problems NECK:Negative for lumps, goiter, pain and significant neck swelling RESPIRATORY: Negative for cough, wheezing or shortness of breath. CARDIOVASCULAR: Negative for chest pain, leg swelling or palpitations. GASTROINTESTINAL: Negative for abdominal discomfort, blood in stools or black stools or change in bowel habits GENITOURINARY: No history of dysuria, frequency or incontinence NEUROLOGIC:Negative for focal numbness or weakness, headaches and dizziness or syncope, vision changes, speech/language changes, changes in gait or falls -- besides those complaints as above in HPI. SKIN:Negative for lesions, rash, and itching. LAB/IMAGING: Reviewed and include: WBC (k/uL) Date Value 02/19/2022 7.34 RBC (m/uL) Date Value 02/19/2022 3.77 (L) Hemoglobin (g/dL) Date Value 02/19/2022 11.6 Hematocrit (%) Date Value 02/19/2022 35.9 (L) MCV (fL) Date Value 02/19/2022 95.2 MCH (pg) Date Value 02/19/2022 30.8 MCHC (g/dL) Date Value 02/19/2022 32.3 RDW-CV (%) Date Value 02/19/2022 14.0 Platelet Count (k/uL) Date Value 02/19/2022 358 MPV (fL) Date Value 02/19/2022 9.5 Glucose (mg/dL) Date Value 02/19/2022 132 (H) BUN (mg/dL) Date Value 02/19/2022 11 Creatinine (mg/dL) Date Value 02/19/2022 0.58 Sodium (mmol/L) Date Value 02/19/2022 138 Potassium (mmol/L) Date Value 02/19/2022 3.9 Chloride (mmol/L) Date Value 02/19/2022 100 CO2 (mmol/L) Date Value 02/19/2022 26 Protein, Total (g/dL) Date Value 02/19/2022 7.5 Albumin (g/dL) Date Value 02/19/2022 4.5 Calcium, Total (mg/dL) Date Value 02/19/2022 9.7 Alkaline Phosphatase (U/L) Date Value 02/19/2022 123 Bilirubin, Total (mg/dL) Date Value 02/19/2022 <0.2 (L) AST (U/L) Date Value 02/19/2022 69 (H) ALT (U/L) Date Value 02/19/2022 60 (H) KENY (no units) Date Value 05/05/2013 Negative Rheumatoid Factor (IU/mL) Date Value 01/11/2012 48 (H) Hep C Antibody IA (no units) Date Value 04/22/2018 Negative MEDICATIONS: methotrexate 2.5 mg tablet TAKE 5 TABLETS BY MOUTH ONCE EACH WEEK. folic acid 1 mg tablet Take 1 tablet by mouth once daily. thyroid, pork, (ARMOUR THYROID) 60 mg Take 1 tablet by mouth once daily. gabapentin (NEURONTIN) 100 mg capsule TAKE 3 CAPSULES BY MOUTH DAILY AT BEDTIME. acetaminophen (TYLENOL EXTRA STRENGTH) 500 mg tablet Take 2 tablets by mouth every 6 hours as needed for pain for up to 30 doses. Cetirizine (ZYRTEC) 10 mg cap Take 1 capsule by mouth as needed (allergies). meloxicam (MOBIC) 15 mg tablet Take by mouth. CPAP Initiate Auto PAP @ 5-20 cm of water with humidification. Mask (per patient preference) optional chin strap (if indicated) , filters, tubing, humidifier and lifetime supplies. predniSONE (DELTASONE) 5 mg tablet TAKE 1 TABLET BY MOUTH EVERY DAY HISTORIES PAST MEDICAL HISTORY Diagnosis Date Bronchitis, not specified as acute or chronic Dizziness and giddiness Esophageal reflux 10/27/2006 High cholesterol Migraine, unspecified, with intractable migraine, so stated, without mention of status migrainosus Palpitations 06/08/07 Stress echo at [facility] and EF% is 61. RA (rheumatoid arthritis) (HCC) Rheumatoid arthritis(714.0) 05/02/2011 FAMILY HISTORY Problem Relation Age of Onset Heart Mother murmur COPD Mother other (High Cholesterol) Mother other (vocal cord paralysis ) Mother Hypertension Father Arthritis Maternal Grandmother RA Diabetes Brother Rheumatologic disease Brother Heart Brother Heart Brother mi Diabetes Brother Lipids Sister Breast Cancer Son 18 people on Mom's side of family other (hodgkin) Son SOCIAL HISTORY Social History Tobacco Use Smoking status: Never Smoker Smokeless tobacco: Never Used Substance Use Topics Alcohol use: No Drug use: No PHYSICAL EXAMINATION LMP 06/15/2015 (Exact Date) GENERAL EXAM: General appearance: NAD, pleasant. HEENT: NC/AT, nasal congestion absent, no oral lesions, membranes moist. Lungs: CTA bilaterally. CV: RRR nl S1, S2 Extr: No cyanosis, clubbing or edema. Skin: Cool to touch. NEUROLOGICAL EXAM: General: Awake, alert, oriented x3 (person,place,time), speech fluent, no dysarthria; comprehension, naming, repetition intact. Fund of knowledge grossly normal. CN: PERRL, EOMI and without nystagmus, VFF to confrontation, facial sensation and strength are normal and symmetric, hearing is intact to finger rub bilaterally, palate and tongue movements are intact and symmetric. SCM and trapezius strength normal. Motor: Normal tone, bulk and strength (5/5) bilaterally (throughout extremities x4). Coordination: FNF, PARTHA intact. No tremors. Sensation: LT intact throughout. No evidence of neglect. Gait: Stable with normal stride and arm swing. Assessment and Plan: ASSESSMENT/PLAN: 1. NIKO on CPAP - ICD9: 327.23, V46.8, ICD10: G47.33, Z99.89 Patient with known moderate NIKO (symptomatic as above), with resolution of symptoms and normalization of AHI with use of PAP therapy. However, has not been able to use PAP as she reports insurance/DME not allowing for her to receive replacement equipment. She is wanting to restart PAP immediately, but needs equipment (mask/tubing...) to do so. Since off PAP, unable to sleep through the night with palpitations, SOB, headaches... On review of PAP download from when last using, her device was normalizing the AHI. It does not appear she needs a new PAP device at this time. She is requesting referral to new DME. Rx provided for PAP supplies. Lack of compliance this last year appears only to be due to patient not receiving the equipment she needs to use PAP appropriately. If for any reason, insurance were to require a new sleep study, will order HSAT. Discussed with patient: the physiology of OSAS, medical conditions associated with OSAS (DM, HTN, CAD, Depression, Stroke, Headache...) and treatment options (UPPP, Dental appliances, CPAP...). Advised patient to avoid activities that could harm self or others when tired/sleepy, including driving and/or operating heavy machinery. Will get download from PAP once using for 4 weeks. Will have pt follow up in 3 months. Pt agrees with plan above. Néstor Sánchez MD I spent a total of 45 minutes on the date of the service which included preparing to see the patient, [id number] patient care, completing clinical documentation, obtaining and/or reviewing separately obtained history, performing a medically appropriate examination, counseling and educating the patient/family/caregiver, ordering medications, tests, or procedures, independently interpreting results (not separately reported) and communicating results to the patient/family/caregiver. documented in this encounter [facility] 02-25-2022 History of Presen t illness Narrative Spoke with patient about test results Mildly elevated LFTs no new meds will repeat labs in 4-6 weeks C/o esophageal stricture in the past and now with dyphagia solids Will refer to GI R hip XR reviewed new AVN noted will discuss with ortho Rx for MTX escribed. Will call in 1 month for follow up on the above Plan of care discussed in detail RECOMMENDATIONS Ortho consult GI consult Repeat labs in 4-6 week Rx escripted documented in this encounter [facility] 02-19-2022 History of Presen t illness Narrative Images from the original note were not included. Rheumatology Clinic Date of Service: 02/19/2022 Patient: Aury Metz Medical Record: [id number] Primary Care Physician: Timbo Bright MD Last Rheumatology visit: 02/19/2022 (with Mino Harris) History of Present Illness Aury Metz is a 57 year old White female who presents on 02/19/2022 for an in-person visit for evaluation of Rheumatoid Arthritis. She is currently taking methotrexate sodium, prednisone. Aury is RF positive - 48 (01/11/2012) and CCP negative - 20 (05/01/2011). Her most recent KENY was positive (05/05/2013). HISTORY OF PRESENT ILLNESS 57 year old with RF+, CCP negative (intermittent +CCP in the past) Nonerosive Past treatment: Plaquenil: LE numbness Methotrexate: Became ineffective after 7 years Arava: Rash Humira: SOB Enbrel: ?? Not sure why it was stopped. She thinks she only had one injection. Cymbalta: mind could not shut off. Xeljanz: Insurance would not cover, despite an appeal. 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 Unless noted otherwise, only the newest values recorded on each date are displayed. Injection History 10/05/20 07/02/21 Medication - Right 40 mg methylPREDNISolone acetate 40 mg/mL Medication - Left 40 mg methylPREDNISolone acetate 40 mg/mL Medication bupivacaine-dextrose 0.75 % (7.5 mg/mL) injection (SENSORCAINE MPF SPINAL), 2 mL Location knee Knee Site bilateral knee joints Some values recorded on this date have been omitted. Patient-Entered Data Pain Scores Pain Evaluation 08/20/2021 08/22/2021 02/19/2022 Pain Score 0 3 - Location - - (No Data) Location Comment - - bilateral hands swelling and knees Description Tightness Sore;Tightness (No Data) Duration (#) - - - Duration (Timeframe) - - - Frequency - - Continuous Intervention - - - Comments - - - PROMIS Assessments PROMIS Assessments 07/21/2021 08/17/2021 02/16/2022 Physical Health Percentile - - 31 % Mental Health Percentile - - 26 % Pain Score - - 3 Pain Interference Percentile - - 4 % Fatigue Percentile 8 % 8 % 8 % Physical Function Percentile 4 % 10 % 5 % RAPID 3 Gonzalez Activities of Daily Living 02/16/2022 6:16 PM 12/28/2020 7:19 AM 10/02/2020 3:18 PM First answer obtained - 06/19/2020 9:12 AM Dress self? With SOME difficulty Without ANY difficulty Without ANY difficulty Without ANY difficulty Get in and out of bed? With SOME difficulty Without ANY difficulty With SOME difficulty With SOME difficulty Walk outdoors? With SOME difficulty With SOME difficulty Without ANY difficulty Without ANY difficulty Wash and dry body? With SOME difficulty Without ANY difficulty Without ANY difficulty Without ANY difficulty Get in and out of car? With SOME difficulty With SOME difficulty With SOME difficulty With SOME difficulty RAPID 3 Disease Activity Weighed Score Levels: 0 - 1: Near Remission 1.3 - 2.0: Low Severity 2.3 - 4.0: Moderate Severity 4.3 - 10.0: High Severity RAPID-3 Weighed Score 10/02/2020 12/28/2020 02/16/2022 RAPID 3 Weighed Score - - - RAPID 3 Weighed Score 3.72 (Moderate Severity (MS)) 3.88 (Moderate Severity (MS)) 6.06 (High Severity (HS)) Review of Systems Review of Systems CONSTITUTION: Negative for: Fever and Recent weight change HEENT: Negative for: Nosebleeds, Mouth sores, Trouble swallowing and Dry mouth RESPIRATORY: Negative for: Cough, Shortness of breath and Pain with breathing GASTROINTESTINAL: Positive for: Heartburn and Abdominal pain Negative for: Melena and Diarrhea MUSCULOSKELETAL: Positive for: Arthralgias, Myalgias, Muscle weakness, Joint swelling and Morning Joint Stiffness NEUROLOGICAL: Positive for: Headaches and Numbness Negative for: Memory loss SKIN: Negative for: Rash, Skin changes, Hair loss and Nail changes EYES: Positive for: Eye pain, Eye dryness and Visual disturbance Negative for: Eye redness CARDIOVASCULAR: Negative for: Chest pain and Leg swelling GENITOURINARY: Negative for: Dysuria and Hematuria HEMATOLOGIC/LYMPHATIC: Negative for: Swollen glands All other reviewed and negative other than HPI. Past Medical History PAST MEDICAL HISTORY Diagnosis Date Bronchitis, not specified as acute or chronic Dizziness and giddiness Esophageal reflux 10/27/2006 High cholesterol Migraine, unspecified, with intractable migraine, so stated, without mention of status migrainosus Palpitations 06/08/07 Stress echo at [facility] and EF% is 61. RA (rheumatoid arthritis) ([facility]) Rheumatoid arthritis(714.0) 05/02/2011 Past Surgical History PAST SURGICAL HISTORY Procedure Laterality Date ESOPHAGOSCOPY FLEX BALLOON DILAT <30 MM DIAM 2001 2005 Esophageal dilatation LAPS ABD PRTM&OMENTUM DX W/WO SPEC BR/WA SPX Laparoscopy LIG/TRNSXJ FLP TUBE ABDL/VAG APPR UNI/BI Tubal ligation TOTAL KNEE REPLACEMENT Right 07/02/2021 Family History FAMILY HISTORY Problem Relation Age of Onset Heart Mother murmur COPD Mother other (High Cholesterol) Mother other (vocal cord paralysis ) Mother Hypertension Father Arthritis Maternal Grandmother RA Diabetes Brother Rheumatologic disease Brother Heart Brother Heart Brother mi Diabetes Brother Lipids Sister Breast Cancer Son 18 people on Mom's side of family other (hodgkin) Son Social History Social History Tobacco Use Smoking status: Never Smoker Smokeless tobacco: Never Used Substance Use Topics Alcohol use: No Drug use: No Current Medications Current Outpatient Medications on File Prior to Visit Medication Sig thyroid, pork, (ARMOUR THYROID) 60 mg Take 1 tablet by mouth once daily. gabapentin (NEURONTIN) 100 mg capsule TAKE 3 CAPSULES BY MOUTH DAILY AT BEDTIME. acetaminophen (TYLENOL EXTRA STRENGTH) 500 mg tablet Take 2 tablets by mouth every 6 hours as needed for pain for up to 30 doses. methotrexate 2.5 mg tablet TAKE 5 TABLETS BY MOUTH ONCE EACH WEEK. folic acid 1 mg tablet Take 1 tablet by mouth once daily. Cetirizine (ZYRTEC) 10 mg cap Take 1 capsule by mouth as needed (allergies). meloxicam (MOBIC) 15 mg tablet Take by mouth. (Patient not taking: Reported on 02/19/2022 ) CPAP Initiate Auto PAP @ 5-20 cm of water with humidification. Mask (per patient preference) optional chin strap (if indicated) , filters, tubing, humidifier and lifetime supplies. (Patient not taking: Reported on 02/19/2022 ) predniSONE (DELTASONE) 5 mg tablet TAKE 1 TABLET BY MOUTH EVERY DAY (Patient not taking: Reported on 02/19/2022) No current facility-administered medications on file prior to visit. Labs CBC Latest Ref Rng & Units 06/25/2021 07/03/2021 09/06/2021 02/19/2022 WBC 3.70 - 11.00 k/uL 8.11 11.84(H) 6.96 7.34 HEMOGLOBIN 11.5 - 15.5 g/dL 10.7(L) 8.7(L) 11.5 11.6 HEMOGLOBIN, RUSSELL 11.5 - 15.5 g/dL - - - - HEMATOCRIT 36.0 - 46.0 % 32.8(L) 27.4(L) 36.5 35.9(L) PLATELETS 150 - 400 k/uL 453(H) 346 403(H) 358 ABS NEUT (ANC) 1.45 - 7.50 k/uL - - - 4.00 ABS NEUT, RUSSELL 1.45 - 7.50 k/uL - - - - ABS LYMP, RUSSELL 1.00 - 4.00 k/uL - - - - ABS LYMPH 1.00 - 4.00 k/uL - - - 2.68 CMP Latest Ref Rng & Units 01/04/2021 06/25/2021 07/03/2021 02/19/2022 SODIUM 136 - 144 mmol/L 139 136 139 138 SODIUM, RUSSELL 136 - 145 mmol/L - - - - SODIUM, RUSSELL 136 - 145 mmol/L - - - - POTASSIUM 3.7 - 5.1 mmol/L 4.7 4.0 4.0 3.9 POTASSIUM, RUSSELL 3.5 - 5.1 mmol/L - - - - CHLORIDE 97 - 105 mmol/L 101 100 104 100 CHLORIDE, RUSSELL 98 - 107 mmol/L - - - - CO2 22 - 30 mmol/L 24 25 23 26 CO2, RUSSELL 21.0 - 32.0 mmol/L - - - - GLUCOSE 74 - 99 mg/dL 82 100(H) 110(H) 132(H) GLUCOSE (U), RUSSELL NEGAT mg/dL - - - - GLUCOSE, RUSSELL 70 - 99 mg/dL - - - - BUN 7 - 21 mg/dL 17 22(H) 13 11 BUN, RUSSELL 7 - 18 mg/dL - - - - CREATININE 0.58 - 0.96 mg/dL 0.64 0.62 0.52(L) 0.58 CREATININE, RUSSELL 0.6 - 1.0 mg/dL - - - - CALCIUM, RUSSELL 8.5 - 10.1 mg/dL - - - - CALCIUM, TOTAL 8.5 - 10.2 mg/dL 9.8 9.6 9.1 9.7 AST 13 - 35 U/L 27 17 - 69(H) AST, RUSSELL 15 - 37 U/L - - - - ALT 7 - 38 U/L 18 11 - 60(H) ALT, RUSSELL 30 - 65 U/L - - - - ALKALINE PHOSPHATASE 34 - 123 U/L 100 123 - 123 ESR, WSR Latest Ref Rng & Units 03/15/2020 10/05/2020 01/04/2021 02/19/2022 WSR 0 - 20 mm/hr 34(H) 20 49(H) 40(H) SED RATE, RUSSELL 0 - 20 mm/hr - - - - CRP Latest Ref Rng & Units 03/15/2020 10/05/2020 01/04/2021 02/19/2022 CRP <0.9 mg/dL 0.6 0.2 0.7 0.7 C3, C4 Latest Ref Rng & Units 05/05/2013 C3 68 - 260 mg/dL 111 C4 12 - 46 mg/dL 17 RF and CCP Latest Ref Rng & Units 12/12/2010 05/01/2011 01/11/2012 RHEUMATOID FACTOR <20 IU/mL 99(H) 57(H) 48(H) CCP ANTIBODY, IGG Units - 20 - Hepatitis Screen Latest Ref Rng & Units 05/01/2011 06/19/2016 10/08/2017 04/22/2018 HEPBCOTOL Negative Negative Negative Negative Negative HEPSABQ Negative Positive(A) Positive(A) Positive(A) Positive(A) HEPCABEIA Negative Negative Negative Negative Negative HBSAGR Negative Negative Negative Negative Negative TB Screen Latest Ref Rng & Units 07/26/2015 06/19/2016 10/08/2017 07/29/2018 TBGINT - No evidence of current or previous infection with Mycobacterium tuberculosis. No evidence of current or previous infection with Mycobacterium tuberculosis. No evidence of current or previous infection with Mycobacterium tuberculosis. No evidence of current or previous infection with Mycobacterium tuberculosis. TBGRES Negative Negative Negative Negative Negative Antibodies Latest Ref Rng & Units 12/12/2010 05/05/2013 KENY NEGAT Negative Negative KENY BY EIA <1.5 OD Ratio 1.5(H) 1.7(H) KENY TITER NEGAT Negative Negative KENY PATTERN - Not applicable for negative result. Not applicable for negative result. DNA ANTIBODY W/CONFIRMATION <30 IU/mL - <12 COSMETIC MAKER ANTIBODY <1.0 AI - <0.2 SSA ANTIBODY <1.0 AI - 0.2 SSB ANTIBODY <1.0 AI - 0.3 SHEKHAR 1 ANTIBODY <1.0 AI - <0.2 RIBOSOMAL COSMETIC MAKER <1.0 AI - 0.3 SM ANTIBODY <1.0 AI - <0.2 SCLERODERMA AB, IGG <1.0 AI - <0.2 SCL-70 ABS, EIA <1.0 AI - <0.2 CENTROMERE AB <1.0 AI - <0.2 CHROMATIN ANTIBODY <1.0 AI - <0.2 ANCA Latest Ref Rng & Units 03/29/2011 MYELOPEROXIDASE <480 pmol/L 336 Urinalysis Latest Ref Rng & Units 02/23/2020 03/15/2020 04/17/2020 02/19/2022 PROTEIN, URINE Negative - - Negative Negative PROTEIN (U), RUSSELL NEGAT mg/dL - - - - PROTEIN UA (POCT) Negative mg/dL Negative Negative - - RBC, URINE 0-3 /HPF - - - 0-3 /HPF RBC, URINE, RUSSELL /hpf - - - - Imaging Last XR Hand/Finger - Impression Only XR HAND/WRIST SURVEY ARTHRITIS 1V PA BILATERAL Exam End: 02/19/2022 3:23 PM (Final result) Impression: IMPRESSION: Degenerative changes, no erosions. Data Collector: VIVIANA Transcribe Date/Time: Feb 19 2022 4:11P ... Complete Results Last MRI Hand - Impression Only No resulted procedures found. Last XR Chest - Impression Only XR CHEST 2V FRONTAL/LAT Exam End: 11/17/2018 10:06 AM (Final result) Impression: IMPRESSION: No acute radiographic abnormality. Data Collector: VIVIANA ... Complete Results Last XR Cervical Spine - Impression Only No resulted procedures found. Health Maintenance Current Immunizations Reviewed on 02/19/2022 Name Date DT(PEDIATRIC) 04/22/2004 Physical Exam BP 116/60 Pulse 97 Temp (Src) 97.6 (Temporal) Ht 5' 4.5 (1.64m) Wt 146 lb 9.6 oz (66.5kg) LMP 06/15/2015 BMI 24.78 kg/(m^2). Physical Exam Vitals reviewed. Constitutional: Appearance: Normal appearance. HENT: Head: Atraumatic. Eyes: Extraocular Movements: Extraocular movements intact. Conjunctiva/sclera: Conjunctivae normal. Pupils: Pupils are equal, round, and reactive to light. Cardiovascular: Rate and Rhythm: Normal rate and regular rhythm. Pulses: Normal pulses. Heart sounds: Normal heart sounds. Pulmonary: Breath sounds: Normal breath sounds. Abdominal: General: Abdomen is flat. Palpations: Abdomen is soft. Musculoskeletal: Cervical back: Normal range of motion. 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 Neurological: General: No focal deficit present. Psychiatric: Mood and Affect: Mood normal. Behavior: Behavior normal. 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 She is having significant bilateral knee pain due to severe DJD. It is probably aggravated with her physically demanding job. Quit job now works from home loves her new job Knee DJD s/p R knee replacement 06/2021 Plan Orders this visit: Office Visit on 02/19/22 XR HAND/WRIST SURVEY ARTHRITIS 1V PA BILATERAL XR FOOT SURVEY ARTHRITIS 1V AP BILATERAL XR HIP GENERAL 3V PELV/AP/LAT RIGHT CONSULT TO RHEUMATOLOGY AMBULATORY CLINIC PHARMACY CONSULT TO INTEGRATIVE MEDICINE RA stable C/w MTX Check XR Consult pharmacy Integrative health consult Return in about 3 months (around 05/22/2022) for FUNMILAY[facility] with [facility] [address] Harris 6 months. CC: PCP: Timbo Bright MD [address] [facility] [address] Phone #: [phone] I spent a total of 30 minutes on the date of the service which included preparing to see the patient, [id number] patient care, completing clinical documentation, obtaining and/or reviewing separately obtained history, performing a medically appropriate examination, counseling and educating the patient/family/caregiver, ordering medications, tests, or procedures and communicating results to the patient/family/caregiver. Medical Decision Making Mino Harris MD Rheumatology Date: February 19, 2022 Time: 2:19 PM documented in this encounter [facility] 02-06-2022 Miscellaneous Notes Okayed Patient has been identified by name and date of : Yes Patient phones for refill(s): Pending Prescriptions Disp Refills THYROID (PORK) 60 MG TABLET 90 tablet 1 Sig: Take 1 tablet by mouth once daily. MARVIN: No Date of last office visit in primary care: 09/06/2021 Annual: 09/06/2022 Last 2 Encounter Wt Readings: Date: Wt: 09/06/2021 60.3 kg (133 lb) 06/25/2021 61.9 kg (136 lb 6.4 oz) Previous labs/tests for medication: Thyroid: TSH (uU/mL) Date Value 09/06/2021 0.916 Please advise. Thank you. Zaira Smith LPN Patient has been identified by name and date of : Yes Pending Prescriptions Disp Refills THYROID (PORK) 60 MG TABLET 90 tablet 1 Sig: Take 1 tablet by mouth once daily. MARVIN: No RX INSTRUCTIONS: Patient requesting a call when RX is approved and sent to the pharmacy. Please call patient at: [phone]. Leah Yu Pss documented in this encounter [facility] 01-23-2022 Miscellaneous Notes Pt was last seen 04/11. The earliest appt she can get is Sept. She is asking if there is anything sooner, if you want her to have labs. she takes CBD which helps but she states it causes lives damage. she is asking your opinion [phone] documented in this encounter [facility] 07-20-2021 Miscellaneous Notes Patient had total knee replacement on 07/02. She would like to know if she can resume her meloxicam and methotrexate. She is taking oxycodone for the pain from the surgery. Please advise [phone] documented in this encounter [facility] 02-08-2021 Note HNO ID: [id number] Author: Prem Victor, [place] Service: Nuclear Medicine Author Type: Clinical Log [place] Type: Progress Notes Filed: 02/08/2021 9:11 AM Note Text: RADIOLOGY SERVICE PROGRESS NOTE SERVICE DATE: 02/08/2021 SERVICE TIME: 9:10 AM PATIENT IDENTITY VERIFICATION COMPLETED USING TWO (2) STANDARD IDENTIFIERS: Name and Date of confirmed by patient verbally and Name and Date of confirmed by identification band FALL SCREENING: Has the patient had 2 falls in the last year or 1 fall with injury or currently using an Ambulatory Assistive Device (Walker, Cane, Wheelchair, Crutches, etc.)? No PATIENT GENDER DATA: .female : No ALLERGIES: Reviewed and unchanged MEDICATIONS REVIEWED: Not applicable PATIENT RELEVANT IMPLANT DATA REVIEWED: Not Applicable CREATININE: Creatinine Date Value Ref Range Status 01/04/2021 0.64 0.58 - 0.96 mg/dL Final 10/05/2020 0.58 0.58 - 0.96 mg/dL Final 03/15/2020 0.64 0.58 - 0.96 mg/dL Final eGFR-All Other Races Date Value Ref Range Status 01/04/2021 >60 . Final Comment: eGFR (Estimated GFR) Units of measure: mL/min/1.73 meters squared eGFR is derived from the reexpressed MDRD Study equation using the following parameters: serum creatinine, age, gender and race. The creatinine assay has been calibrated to be traceable to IDMS. An eGFR <60 mL/min/1.73m2 for >3 months is consistent with chronic kidney disease. Refer to KDOQI guidelines for clinical interpretation. In patients with unstable renal function, e.g. those with acute kidney injury, the eGFR may not accurately reflect actual GFR. eGFR- Date Value Ref Range Status 01/04/2021 >60 Final P.O.C.T. RESULTS: N/A February 08, [address] PERFORMED: No IV SITE: Ambulatory: A peripheral IV was started in the Right antecubital site with a Angio cath: 22 gauge. POST EXAM PIV STATUS: Discontinued PROCEDURE TYPE: NM Stress: 11.3mCi [id number] was administered IV for Rest Imaging at 08:04 by MO Hameed. 34.7 mCi [id number] was administered IV for Stress Imaging at 09:01 by MO Hameed. PATIENT DISCHARGED TO: Ambulatory patient, left NM department area. A Diagnostic radioactive procedure has taken place, with no further precautions necessary other than routine body substance precautions. More information regarding radiation safety can be found using this link: [email or web address] SIGNATURE: MO Hameed PATIENT NAME: Aury Metz DATE: February 08, 2021 TIME: 9:10 AM PAGER/CONTACT #: [facility] 08-22-2020 Note HNO ID: [id number] Author: Juan Jose Perez Service: ? Author Type: Physical Therapist Type: Progress Notes Filed: 08/22/2020 8:41 AM Note Text: 08/22/2020 [facility] REHABILITATION AND SPORTS THERAPY PHYSICAL THERAPY DISCONTINUANCE OF CARE Plan of Care Period: Start of Care Date: 04/10/20 Last Visit Date: 05/15/2020 Therapy Program: Patient did not return for follow up care as planned. Please refer to last visit note for interventions provided for this episode of care. Assessment: Unable to formally assess goal achievement due to non-compliance with therapy plan of care. Reason for Discontinuation of Care: Patient has not returned to therapy or scheduled additional follow-up appointments. Juan Jose Perez, PT [facility] 05-15-2020 Note HNO ID: [id number] Author: Juan Jose Perez Service: ? Author Type: Physical Therapist Type: Progress Notes Filed: 05/15/2020 6:01 PM Note Text: Episode Visit Count: 8 Therapist That Will Oversee The Plan Of Care: In[place]. moon Start of Care Date: 04/10/20 Onset Date: 09/22/15 Plan of Care Certification Date: 04/10/20 Next Certification Due Date: 05/10/20 Patient Identified by Name and Date of : Yes REHABILITATION AND SPORTS THERAPY PHYSICAL THERAPY TREATMENT NOTE ASSESSMENT: Aury Metz demonstrated difficulty with increase pain RIGHT low back with pain and tingling down RIGHT lower extremity to RIGHT foot The patient will continue to benefit from ongoing skilled physical therapy for increase flexibility and stability RIGHT lower extremity hip and low back PLAN FOR NEXT VISIT: Re assess RIGHT lower extremity radiating pain SUBJECTIVE: Patient Reason for Visit: pt states that she is having low back pain and leg pain and tingling r le to ankle Pain: Pain Pain Level: 2 OBJECTIVE MEASURES WITH LEVEL OF FUNCTION: t band kikcs increase pain RIGHT hip lower extremity with stance as well as kicking motion TREATMENT: Sagittal Plane Frontal Plane Transverse Plane X = neutral X = neutral X = neutral R = staggered right W = wide base E = external rotation L = staggered left N = narrow base I = internal rotation 1st letter = sagittal, 2nd letter = frontal, 3rd letter = transverse Examples: XXX = neutral, neutral, neutral RXE = right staggered, neutral width, toes out Therapeutic Exercise: 1: nu step level 3 seat 7 ue 8 x [address] 2 min toe in 6 min 4: amb 300 ft level 11: gtb r l bal opp foot kick band knee ext flex ext abd add x 15 ea in ea direction 12: amb 300 ft level 13: gtb 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 Skilled judgment was provided in selection of appropriate interventions. Correct performance of therapeutic exercises was facilitated with verbal, visual and tactile cuing. Billing: Donna: Therapeutic Exercise ([id number]): 1:1 time: 40 minutes (3 units: 38-52 mins) Total time / Length of visit: 45 minutes Juan Jose Perez, PT [facility] 05-08-2020 Note HNO ID: [id number] Author: Juan Jose Perez Service: ? Author Type: Physical Therapist Type: Progress Notes Filed: 05/08/2020 5:15 PM Note Text: Episode Visit Count: 7 Therapist That Will Oversee The Plan Of Care: [place]. moon Start of Care Date: 04/10/20 Onset Date: 09/22/15 Plan of Care Certification Date: 04/10/20 Next Certification Due Date: 05/10/20 Patient Identified by Name and Date of : Yes REHABILITATION AND SPORTS THERAPY PHYSICAL THERAPY TREATMENT NOTE ASSESSMENT: Aury Metz demonstrated difficulty with RIGHT hip lower extremity pain and bilateral shoulder pain and LEFT wrist pain The patient will continue to benefit from ongoing skilled physical therapy for increase flexibility and mobility PLAN FOR NEXT VISIT: progress with strengtheningas tolerated while decrease joint pain SUBJECTIVE: Patient Reason for Visit: pt states that she is having r low back and leg pain and b shoulder pain and l wrist pain. Pain: Severe pain RIGHT hip leg 8/10 OBJECTIVE MEASURES WITH LEVEL OF FUNCTION: stair stretch increase hamstring stretch with no change RIGHT leg pain TREATMENT: Sagittal Plane Frontal Plane Transverse Plane X = neutral X = neutral X = neutral R = staggered right W = wide base E = external rotation L = staggered left N = narrow base I = internal rotation 1st letter = sagittal, 2nd letter = frontal, 3rd letter = transverse Examples: XXX = neutral, neutral, neutral RXE = right staggered, neutral width, toes out Therapeutic Exercise: 1: nu step level 3 seat 7 ue 8 x [address] 4 min toe in 10 min 4: amb 300 ft level 5: second step stretch RXX LXX RWX LWX RNX LNX with hip flex knee flex 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 Skilled judgment was provided in selection of appropriate interventions. Correct performance of therapeutic exercises was facilitated with verbal, visual and tactile cuing. Billing: Donna: Therapeutic Exercise ([id number]): 1:1 time: 40 minutes (3 units: 38-52 mins) Total time / Length of visit: 45 minutes Juan Jose Perez, PT [facility] 05-01-2020 Note HNO ID: [id number] Author: Juan Jose Perez Service: ? Author Type: Physical Therapist Type: Progress Notes Filed: 05/01/2020 5:59 PM Note Text: Episode Visit Count: 6 Therapist That Will Oversee The Plan Of Care: [place]. moon Start of Care Date: 04/10/20 Onset Date: 09/22/15 Plan of Care Certification Date: 04/10/20 Next Certification Due Date: 05/10/20 Patient Identified by Name and Date of : Yes REHABILITATION AND SPORTS THERAPY PHYSICAL THERAPY TREATMENT NOTE ASSESSMENT: Aury Metz demonstrated improvements in hip trunk mobility in all planes The patient will continue to benefit from ongoing skilled physical therapy for increase strength with t band drivers in upper extremity laoded motion PLAN FOR NEXT VISIT: re assess pain after tband work upper extremity loads SUBJECTIVE: Patient Reason for Visit: pt states she is really working hard Pain: Pain Pain Level: 3 OBJECTIVE MEASURES WITH LEVEL OF FUNCTION: Progress with strength in t abnd all planes no increase pain with minor modifications in foot position with rotation TREATMENT: Sagittal Plane Frontal Plane Transverse Plane X = neutral X = neutral X = neutral R = staggered right W = wide base E = external rotation L = staggered left N = narrow base I = internal rotation 1st letter = sagittal, 2nd letter = frontal, 3rd letter = transverse Examples: XXX = neutral, neutral, neutral RXE = right staggered, neutral width, toes out Therapeutic Exercise: 1: nu step level 3 seat 7 ue 8 x [address] 4 min toe in 10 min 4: amb 300 ft level 15: 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 Skilled Intervention: Patient was educated in proper exercise technique and purpose for exercises. Skilled judgment was provided in selection of appropriate interventions. Correct performance of therapeutic exercises was facilitated with verbal, visual and tactile cuing. Billing: [place]: Therapeutic Exercise ([id number]): 1:1 time: 40 minutes (3 units: 38-52 mins) Total time / Length of visit: 45 minutes Juan Jose Perez, PT [facility] 04-26-2020 Note HNO ID: [id number] Author: Juan Jose Perez Service: ? Author Type: Physical Therapist Type: Progress Notes Filed: 04/26/2020 5:19 PM Note Text: Episode Visit Count: 5 Therapist That Will Oversee The Plan Of Care: [place]. moon Start of Care Date: 04/10/20 Onset Date: 09/22/15 Plan of Care Certification Date: 04/10/20 Next Certification Due Date: 05/10/20 Patient Identified by Name and Date of : Yes REHABILITATION AND SPORTS THERAPY PHYSICAL THERAPY TREATMENT NOTE ASSESSMENT: Aury Metz demonstrated difficulty with RIGHT hip pain with increase fatigue The patient will continue to benefit from ongoing skilled physical therapy for increase flexibility and mobility PLAN FOR NEXT VISIT: progress with strengthening t band upper extremity drivers SUBJECTIVE: Patient Reason for Visit: pt states that she is doing ok. having trouble Pain: Pain Pain Level: 3 OBJECTIVE MEASURES WITH LEVEL OF FUNCTION: step up dn lead TREATMENT: Sagittal Plane Frontal Plane Transverse Plane X = neutral X = neutral X = neutral R = staggered right W = wide base E = external rotation L = staggered left N = narrow base I = internal rotation 1st letter = sagittal, 2nd letter = frontal, 3rd letter = transverse Examples: XXX = neutral, neutral, neutral RXE = right staggered, neutral width, toes out Therapeutic Exercise: 2: amb 24 steps recip amb 5 min on track with 3 # wts r l ue x 4 laps approx 5 min 4: amb 300 ft level 6: b mini squats XXX RXX LXX XWX XNX XXE XXI x 5 ea 7: b heel raises XXx RXX LXX XWX XNX XXE XXI x 5 ea 9: amb 300 ft level 11: gtb r l bal opp foot kick band knee ext flex ext abd add x 10 ea in ea direction 12: amb 300 ft level 13: 8 step up dn lead r lead l ant same side lat same side rot x 10 ea in ea direction 14: agility walk 50 ft <. x 3 ant post r l lat r l carioca Skilled Intervention: Patient was educated in proper exercise technique and purpose for exercises. Skilled judgment was provided in selection of appropriate interventions. Correct performance of therapeutic exercises was facilitated with verbal, visual and tactile cuing. Billing: Donna: Therapeutic Exercise ([id number]): 1:1 time: 40 minutes (3 units: 38-52 mins) Total time / Length of visit: 45 minutes Juan Jose Perez, PT [facility] 04-19-2020 Note HNO ID: [id number] Author: Juan Jose Perez Service: ? Author Type: Physical Therapist Type: Progress Notes Filed: 04/19/2020 5:54 PM Note Text: Episode Visit Count: 4 Therapist That Will Oversee The Plan Of Care: juan jose Start of Care Date: 04/10/20 Onset Date: 09/22/15 Plan of Care Certification Date: 04/10/20 Next Certification Due Date: 05/10/20 Patient Identified by Name and Date of : Yes REHABILITATION AND SPORTS THERAPY PHYSICAL THERAPY TREATMENT NOTE ASSESSMENT: Aury Metz demonstrated improvements in mobility and flexibility in gait The patient will continue to benefit from ongoing skilled physical therapy for increase flexibility and strength in standing PLAN FOR NEXT VISIT: t band and step up 4 as tolerated SUBJECTIVE: Patient Reason for Visit: pt states that she is doing ok but would like to step back from work hours a little. Pain: Pain Pain Level: 3 OBJECTIVE MEASURES WITH LEVEL OF FUNCTION: ambulate on track with increase pace decrease assym TREATMENT: Sagittal Plane Frontal Plane Transverse Plane X = neutral X = neutral X = neutral R = staggered right W = wide base E = external rotation L = staggered left N = narrow base I = internal rotation 1st letter = sagittal, 2nd letter = frontal, 3rd letter = transverse Examples: XXX = neutral, neutral, neutral RXE = right staggered, neutral width, toes out Therapeutic Exercise: 2: amb 24 steps recip amb 5 min on track with 3 # wts r l ue x 4 laps approx 5 min 3: alt r l lunge steps grid ant ant lat lat post lat post x 10 ea alt r l 4: amb 300 ft level 6: b mini squats XXX RXX LXX XWX XNX XXE XXI x 5 ea 7: b heel raises XXx RXX LXX XWX XNX XXE XXI x 5 ea 8: amb 100 ft between position change 9: amb 300 ft level Skilled Intervention: Patient was educated in proper exercise technique and purpose for exercises. Skilled judgment was provided in selection of appropriate interventions. Correct performance of therapeutic exercises was facilitated with verbal, visual and tactile cuing. Billing: Donna: Therapeutic Exercise ([id number]): 1:1 time: 35 minutes (2 units: 23-37 mins) Total time / Length of visit: 38 minutes Juan Jose Perez, PT [facility] 04-17-2020 Note HNO ID: [id number] Author: Juan Jose Perez Service: ? Author Type: Physical Therapist Type: Progress Notes Filed: 04/17/2020 6:34 PM Note Text: Episode Visit Count: 3 Therapist That Will Oversee The Plan Of Care: juan jose Start of Care Date: 04/10/20 Onset Date: 09/22/15 Plan of Care Certification Date: 04/10/20 Next Certification Due Date: 05/10/20 Patient Identified by Name and Date of : Yes REHABILITATION AND SPORTS THERAPY PHYSICAL THERAPY TREATMENT NOTE ASSESSMENT: Aury Metz demonstrated improvements in gait mechanics and pace and less assym The patient will continue to benefit from ongoing skilled physical therapy for increase flexibility and mobility PLAN FOR NEXT VISIT: progress t band if tolerated SUBJECTIVE: Patient Reason for Visit: pt states she is feeling ok. am is rough but then when her meds kick in she is a litle better. Pain: Pain Pain Level: 3 OBJECTIVE MEASURES WITH LEVEL OF FUNCTION: TREATMENT: Sagittal Plane Frontal Plane Transverse Plane X = neutral X = neutral X = neutral R = staggered right W = wide base E = external rotation L = staggered left N = narrow base I = internal rotation 1st letter = sagittal, 2nd letter = frontal, 3rd letter = transverse Examples: XXX = neutral, neutral, neutral RXE = right staggered, neutral width, toes out Therapeutic Exercise: 1: nu step level 3 seat 7 ue 8 x [address] 4 min toe in 10 min 2: amb 300 ft level 3: alt r l lunge steps grid ant ant lat lat post lat post x 10 ea alt r l 4: amb 300 ft level 5: sit to stand to sit no ue loads as pauline XXX RXX LXX x 10 ea in ea direction 6: amb 300 ft level 8: amb 300 ft level 9: agility walk ant post r l lat r l carioca 50 ft <> x 3 ea Skilled Intervention: Patient was educated in proper exercise technique and purpose for exercises. Skilled judgment was provided in selection of appropriate interventions. Correct performance of therapeutic exercises was facilitated with verbal, visual and tactile cuing. Billing: Donna: Therapeutic Exercise ([id number]): 1:1 time: 45 minutes (3 units: 38-52 mins) Total time / Length of visit: 50 minutes Juan Jose Perez, PT [facility] 04-12-2020 Note HNO ID: [id number] Author: Juan Jose Deshawn Service: ? Author Type: Physical Therapist Type: Progress Notes Filed: 04/12/2020 5:00 PM Note Text: Episode Visit Count: 2 Therapist That Will Oversee The Plan Of Care: juan jose Start of Care Date: 04/10/20 Onset Date: 09/22/15 Plan of Care Certification Date: 04/10/20 Next Certification Due Date: 05/10/20 Patient Identified by Name and Date of : Yes REHABILITATION AND SPORTS THERAPY PHYSICAL THERAPY TREATMENT NOTE ASSESSMENT: Aury Metz demonstrated difficulty with RIGHT > LEFT stiffness and pain The patient will continue to benefit from ongoing skilled physical therapy for increase strength in lower extremity with increase effort and biomechanical loads from hips to decrease stress to knee RIGHT LEFT . PLAN FOR NEXT VISIT: progress bilateral squats mini h heel raises 7 positions SUBJECTIVE: Patient Reason for Visit: pt states that she is trying to work on being more smart with her work schedule Pain: Pain Pain Level: 3 OBJECTIVE MEASURES WITH LEVEL OF FUNCTION: sit to stand with increase hip flexion decrease pain TREATMENT: Sagittal Plane Frontal Plane Transverse Plane X = neutral X = neutral X = neutral R = staggered right W = wide base E = external rotation L = staggered left N = narrow base I = internal rotation 1st letter = sagittal, 2nd letter = frontal, 3rd letter = transverse Examples: XXX = neutral, neutral, neutral RXE = right staggered, neutral width, toes out Therapeutic Exercise: 1: nu step level 2 seat 7 ue 8 x [address] 4 min toe in 10 min 2: amb 300 ft level 3: alt r l lunge steps grid ant ant lat lat post lat post x 10 ea alt r l 4: amb 300 ft level 5: sit to stand to sit no ue loads as pauline XXX RXX LXX x 10 ea in ea direction 6: amb 300 ft level 7: b heel raises XXX RXX LXX x 10 ea amb 100 ft between sets 8: amb 300 ft level 9: agility walk ant post r l lat r l carioca 60 ft <> x 4 ea 10: amb 300 ft level Skilled Intervention: Patient was educated in proper exercise technique and purpose for exercises. Skilled judgment was provided in selection of appropriate interventions. Correct performance of therapeutic exercises was facilitated with verbal, visual and tactile cuing. Billing: [place]: Therapeutic Exercise ([id number]): 1:1 time: 40 minutes (3 units: 38-52 mins) Total time / Length of visit: 42 minutes Juan Jose Deshawn, PT [facility] 04-10-2020 Note HNO ID: [id number] Author: Juan Jose Perez Service: ? Author Type: Physical Therapist Type: Progress Notes Filed: 04/10/2020 6:53 PM Note Text: Episode Visit Count: 1 Therapist That Will Oversee The Plan Of Care: Inman. moon Start of Care Date: 04/10/20 Onset Date: 09/22/15 Plan of Care Certification Date: 04/10/20 Next Certification Due Date: 05/10/20 Patient Identified by Name and Date of : Yes REHABILITATION AND SPORTS THERAPY PHYSICAL THERAPY EVALUATION PLAN OF CARE: Assessment: Aury Metz presents with the diagnosis of Rheumatoid arthritis of multiple sites without organ or system involvement with positive rheumatoid factor (HCC) [M05.79] Primary osteoarthritis of right knee [M17.11] . She presents with impairments of knee pain and stiffness hip pain and stiffness difficulty walking. She may benefit from skilled therapy services to improve flexibility hips knees and ankle As well as increase core functional mobility and strength increase balance and control. Pt has significant limitations in knee and hip mobility and decrease core stability and decrease balance. PT spent excessive time explaining the need to begin getting herself in a position to handle the next phase of life with better vitality and while she deals with the progressive nature of her systemic issues. Prognosis: Fair Fair due to: clinical presentation;multiple co- morbidities Goals for Episode of Care: created on 04/10/20 through 05/25/20 Decrease pain by report from eval RIGHT LEFT knee to 4/10 max with normal activity arom RIGHT LEFT knee flexion extension in supine and or sitting from eval with decrease pain arom RIGHT LEFT hip in stand non wt lower extremity hip flexion extension abduction adduction internal rotation external rotation from eval Hip mobility in stand wt bearing extension adduction internal rotation external rotation from eval Ambulate with less assym and less pain level surface x 5 min Ambulate less assym less pain uneven surface x 5 min Agility ambulate all planes decrease pain RIGHT LEFT knee Bilateral squat increase hip flexion knee flexion and ret to extension with decrease pain from eval Ambulate up dn 12 steps reciprocal with 1 hand rail with decrease pain Unilateral balance RIGHT LEFT x 5 sec with decrease pain Unilateral squat RIGHT LEFT tolerated with decrease pain hip and knee flexion and ret to extension Dewey in home exercise program. Patient Goals: dec pain inc functional ability Planned Interventions, Frequency, and Duration: Current Frequency: 2x/week Duration: 4 weeks Total Number of Visits Planned: 8 Planned Treatment Interventions: Therapeutic exercise PLAN FOR NEXT VISIT: progress rehab plan Patient demonstrates fair understanding of plan of care and treatment. The above goals and plan of care were discussed and agreed upon by patient/family. 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 Falls Interview: No positive findings with falls interview Pain: Pain Pain Level: 7 Pain Location: Knee - Right Description: Aching;Dull;Sharp;Shooting;Sore PROMIS Scales Higher is Better 04/10/2020 Phys Func - Score 35 (moderate dysfunction) Phys Func - Percentile 7 % Social Roles - Score 25 (severe dysfunction) Social Role - Percentile 1 % Self-Eff Symptom - Score 42 (Average) Self-Eff Symptom - Percentile 21 % T-scores: mean of general population = 50. 5 points is clinically meaningfully difference Percentiles provide an indication of how the patient's score ranks in relation to the general population. Higher percentile rankings indicate better function/quality of life. 50th percentile is the average of the general population and indicates half of respondents had a worse score. Lower is Better 04/10/2020 Fatigue - Score 59 (mild) Fatigue - Percentile 18 % T-scores: mean of general population = 50. 5 points is clinically meaningfully difference Percentiles provide an indication of how the patient's score ranks in relation to the general population. Higher percentile rankings indicate better function/quality of life. 50th percentile is the average of the general population and indicates half of respondents had a worse score. OBJECTIVE MEASURES WITH LEVEL OF FUNCTION: Knee Observations R Knee Presents with: Comments R Knee Presents with Comments: funmilayo (more content not included)... [facility] 02-08-2015 History of Past i llness Narrative Problem Noted Date Resolved Date 1.1 Migraine without aura, not intractable [346. 10] 02/08/2015 11/01/2022 Intractable migraine with aura without status mi grainosus 02/08/2015 11/01/2022 Last Assessment & Plan: Assessment: otc analgesics as needed 1.5.1 Chronic migraine [346.71] 02/08/2015 11/01/2022 Rheumatoid arthritis 05/02/2011 09/11/2016 Overview: Follows with Rheum Bronchitis, not specified as acute or chronic 10/27/2006 Dizziness and giddiness 10/27/19 07 documented as of this encounter (statuses as of 11/06/2022) [facility]05-20-2015 History of Past illness Narrative* Problem Noted Date Resolved Date 1.1 Migraine without aura, not intractable [346. 10] 02/08/2015 11/01/2022 Intractable migraine with aura without status mi grainosus 02/08/2015 11/01/2022 Last Assessment & Plan: Assessment: otc analgesics as needed 1.5.1 Chronic migraine [346.71] 02/08/2015 11/01/2022 Rheumatoid arthritis 05/02/2011 09/11/2016 Overview: Follows with Rheum Bronchitis, not specified as acute or chronic 10/27/2006 Dizziness and giddiness 10/27/19 07 documented as of this encounter (statuses as of 11/06/2022) [facility]05-20-2015 History of Past illness Narrative* Problem Noted Date Resolved Date 1.1 Migraine without aura, not intractable [346. 10] 02/08/2015 11/01/2022 Intractable migraine with aura without status mi grainosus 02/08/2015 11/01/2022 Last Assessment & Plan: Assessment: otc analgesics as needed 1.5.1 Chronic migraine [346.71] 02/08/2015 11/01/2022 Rheumatoid arthritis 05/02/2011 09/11/2016 Overview: Follows with Rheum Bronchitis, not specified as acute or chronic 10/27/2006 Dizziness and giddiness 10/27/19 07 documented as of this encounter (statuses as of 11/07/2022) [facility]2015 History of Past illness Narrative* Problem Noted Date Resolved Date 1.1 Migraine without aura, not intractable [346. 10] 02/08/2015 11/01/2022 Intractable migraine with aura without status mi grainosus 02/08/2015 11/01/2022 Last Assessment & Plan: Assessment: otc analgesics as needed 1.5.1 Chronic migraine [346.71] 02/08/2015 11/01/2022 Rheumatoid arthritis 05/02/2011 09/11/2016 Overview: Follows with Rheum Bronchitis, not specified as acute or chronic 10/27/2006 Dizziness and giddiness 10/27/19 07 documented as of this encounter (statuses as of 11/19/2022) [facility] History of Past illness Narrative* Problem Noted Date Resolved Date 1.1 Migraine without aura, not intractable [346. 10] 02/08/2015 11/01/2022 Intractable migraine with aura without status mi grainosus 02/08/2015 11/01/2022 Last Assessment & Plan: Assessment: otc analgesics as needed 1.5.1 Chronic migraine [346.71] 02/08/2015 11/01/2022 Rheumatoid arthritis 05/02/2011 09/11/2016 Overview: Follows with Rheum Bronchitis, not specified as acute or chronic 10/27/2006 Dizziness and giddiness 10/27/19 07 documented as of this encounter (statuses as of 11/20/2022) [facility] History of Past illness Narrative* Problem Noted Date Resolved Date 1.1 Migraine without aura, not intractable [346. 10] 02/08/2015 11/01/2022 Intractable migraine with aura without status mi grainosus 02/08/2015 11/01/2022 Last Assessment & Plan: Assessment: otc analgesics as needed 1.5.1 Chronic migraine [346.71] 02/08/2015 11/01/2022 Rheumatoid arthritis 05/02/2011 09/11/2016 Overview: Follows with Rheum Bronchitis, not specified as acute or chronic 10/27/2006 Dizziness and giddiness 10/27/19 07 documented as of this encounter (statuses as of 11/20/2022) [facility] History of Past illness Narrative* Problem Noted Date Resolved Date 1.1 Migraine without aura, not intractable [346. 10] 02/08/2015 11/01/2022 Intractable migraine with aura without status mi grainosus 02/08/2015 11/01/2022 Last Assessment & Plan: Assessment: otc analgesics as needed 1.5.1 Chronic migraine [346.71] 02/08/2015 11/01/2022 Rheumatoid arthritis 05/02/2011 09/11/2016 Overview: Follows with Rheum Bronchitis, not specified as acute or chronic 10/27/2006 Dizziness and giddiness 10/27/19 07 documented as of this encounter (statuses as of 11/21/2022) [facility] History of Past illness Narrative* Problem Noted Date Resolved Date 1.1 Migraine without aura, not intractable [346. 10] 02/08/2015 11/01/2022 Intractable migraine with aura without status mi grainosus 02/08/2015 11/01/2022 Last Assessment & Plan: Assessment: otc analgesics as needed 1.5.1 Chronic migraine [346.71] 02/08/2015 11/01/2022 Rheumatoid arthritis 05/02/2011 09/11/2016 Overview: Follows with Rheum Bronchitis, not specified as acute or chronic 10/27/2006 Dizziness and giddiness 10/27/19 07 documented as of this encounter (statuses as of 11/21/2022) [facility] History of Past illness Narrative* Problem Noted Date Resolved Date 1.1 Migraine without aura, not intractable [346. 10] 02/08/2015 11/01/2022 Intractable migraine with aura without status mi grainosus 02/08/2015 11/01/2022 Last Assessment & Plan: Assessment: otc analgesics as needed 1.5.1 Chronic migraine [346.71] 02/08/2015 11/01/2022 Rheumatoid arthritis 05/02/2011 09/11/2016 Overview: Follows with Rheum Bronchitis, not specified as acute or chronic 10/27/2006 Dizziness and giddiness 10/27/19 07 documented as of this encounter (statuses as of 11/23/2022) [facility] History of Past illness Narrative* Problem Noted Date Resolved Date 1.1 Migraine without aura, not intractable [346. 10] 02/08/2015 11/01/2022 Intractable migraine with aura without status mi grainosus 02/08/2015 11/01/2022 Last Assessment & Plan: Assessment: otc analgesics as needed 1.5.1 Chronic migraine [346.71] 02/08/2015 11/01/2022 Rheumatoid arthritis 05/02/2011 09/11/2016 Overview: Follows with Rheum Bronchitis, not specified as acute or chronic 10/27/2006 Dizziness and giddiness 10/27/19 07 documented as of this encounter (statuses as of 11/26/2022) [facility] History of Past illness Narrative* Problem Noted Date Resolved Date 1.1 Migraine without aura, not intractable [346. 10] 02/08/2015 11/01/2022 Intractable migraine with aura without status mi grainosus 02/08/2015 11/01/2022 Last Assessment & Plan: Assessment: otc analgesics as needed 1.5.1 Chronic migraine [346.71] 02/08/2015 11/01/2022 Rheumatoid arthritis 05/02/2011 09/11/2016 Overview: Follows with Rheum Bronchitis, not specified as acute or chronic 10/27/2006 Dizziness and giddiness 10/27/19 07 documented as of this encounter (statuses as of 11/26/2022) [facility] History of Past illness Narrative* Problem Noted Date Resolved Date 1.1 Migraine without aura, not intractable [346. 10] 02/08/2015 11/01/2022 Intractable migraine with aura without status mi grainosus 02/08/2015 11/01/2022 Last Assessment & Plan: Assessment: otc analgesics as needed 1.5.1 Chronic migraine [346.71] 02/08/2015 11/01/2022 Rheumatoid arthritis 05/02/2011 09/11/2016 Overview: Follows with Rheum Bronchitis, not specified as acute or chronic 10/27/2006 Dizziness and giddiness 10/27/19 07 documented as of this encounter (statuses as of 11/28/2022) [facility] History of Past illness Narrative* Problem Noted Date Resolved Date 1.1 Migraine without aura, not intractable [346. 10] 02/08/2015 11/01/2022 Intractable migraine with aura without status mi grainosus 02/08/2015 11/01/2022 Last Assessment & Plan: Assessment: otc analgesics as needed 1.5.1 Chronic migraine [346.71] 02/08/2015 11/01/2022 Rheumatoid arthritis 05/02/2011 09/11/2016 Overview: Follows with Rheum Bronchitis, not specified as acute or chronic 10/27/2006 Dizziness and giddiness 10/27/19 07 documented as of this encounter (statuses as of 11/29/2022) [facility] History of Past illness Narrative* Problem Noted Date Resolved Date 1.1 Migraine without aura, not intractable [346. 10] 02/08/2015 11/01/2022 Intractable migraine with aura without status mi grainosus 02/08/2015 11/01/2022 Last Assessment & Plan: Assessment: otc analgesics as needed 1.5.1 Chronic migraine [346.71] 02/08/2015 11/01/2022 Rheumatoid arthritis 05/02/2011 09/11/2016 Overview: Follows with Rheum Bronchitis, not specified as acute or chronic 10/27/2006 Dizziness and giddiness 10/27/19 07 documented as of this encounter (statuses as of 12/02/2022) [facility] History of Past illness Narrative* Problem Noted Date Resolved Date 1.1 Migraine without aura, not intractable [346. 10] 02/08/2015 11/01/2022 Intractable migraine with aura without status mi grainosus 02/08/2015 11/01/2022 Last Assessment & Plan: Assessment: otc analgesics as needed 1.5.1 Chronic migraine [346.71] 02/08/2015 11/01/2022 Rheumatoid arthritis 05/02/2011 09/11/2016 Overview: Follows with Rheum Bronchitis, not specified as acute or chronic 10/27/2006 Dizziness and giddiness 10/27/19 07 documented as of this encounter (statuses as of 12/04/2022) [facility] History of Past illness Narrative* Problem Noted Date Resolved Date 1.1 Migraine without aura, not intractable [346. 10] 02/08/2015 11/01/2022 Intractable migraine with aura without status mi grainosus 02/08/2015 11/01/2022 Last Assessment & Plan: Assessment: otc analgesics as needed 1.5.1 Chronic migraine [346.71] 02/08/2015 11/01/2022 Rheumatoid arthritis 05/02/2011 09/11/2016 Overview: Follows with Rheum Bronchitis, not specified as acute or chronic 10/27/2006 Dizziness and giddiness 10/27/19 07 documented as of this encounter (statuses as of 12/05/2022) [facility] History of Past illness Narrative* Problem Noted Date Resolved Date 1.1 Migraine without aura, not intractable [346. 10] 02/08/2015 11/01/2022 Intractable migraine with aura without status mi grainosus 02/08/2015 11/01/2022 Last Assessment & Plan: Assessment: otc analgesics as needed 1.5.1 Chronic migraine [346.71] 02/08/2015 11/01/2022 Rheumatoid arthritis 05/02/2011 09/11/2016 Overview: Follows with Rheum Bronchitis, not specified as acute or chronic 10/27/2006 Dizziness and giddiness 10/27/19 07 documented as of this encounter (statuses as of 12/06/2022) [facility] History of Past illness Narrative* Problem Noted Date Resolved Date 1.1 Migraine without aura, not intractable [346. 10] 02/08/2015 11/01/2022 Intractable migraine with aura without status mi grainosus 02/08/2015 11/01/2022 Last Assessment & Plan: Assessment: otc analgesics as needed 1.5.1 Chronic migraine [346.71] 02/08/2015 11/01/2022 Rheumatoid arthritis 05/02/2011 09/11/2016 Overview: Follows with Rheum Bronchitis, not specified as acute or chronic 10/27/2006 Dizziness and giddiness 10/27/19 07 documented as of this encounter (statuses as of 12/09/2022) [facility] History of Past illness Narrative* Problem Noted Date Resolved Date 1.1 Migraine without aura, not intractable [346. 10] 02/08/2015 11/01/2022 Intractable migraine with aura without status mi grainosus 02/08/2015 11/01/2022 Last Assessment & Plan: Assessment: otc analgesics as needed 1.5.1 Chronic migraine [346.71] 02/08/2015 11/01/2022 Rheumatoid arthritis 05/02/2011 09/11/2016 Overview: Follows with Rheum Bronchitis, not specified as acute or chronic 10/27/2006 Dizziness and giddiness 10/27/19 07 documented as of this encounter (statuses as of 12/10/2022) [facility] History of Past illness Narrative* Problem Noted Date Resolved Date 1.1 Migraine without aura, not intractable [346. 10] 02/08/2015 11/01/2022 Intractable migraine with aura without status mi grainosus 02/08/2015 11/01/2022 Last Assessment & Plan: Assessment: otc analgesics as needed 1.5.1 Chronic migraine [346.71] 02/08/2015 11/01/2022 Rheumatoid arthritis 05/02/2011 09/11/2016 Overview: Follows with Rheum Bronchitis, not specified as acute or chronic 10/27/2006 Dizziness and giddiness 10/27/19 07 documented as of this encounter (statuses as of 12/12/2022) [facility] History of Past illness Narrative* Problem Noted Date Resolved Date 1.1 Migraine without aura, not intractable [346. 10] 02/08/2015 11/01/2022 Intractable migraine with aura without status mi grainosus 02/08/2015 11/01/2022 Last Assessment & Plan: Assessment: otc analgesics as needed 1.5.1 Chronic migraine [346.71] 02/08/2015 11/01/2022 Rheumatoid arthritis 05/02/2011 09/11/2016 Overview: Follows with Rheum Bronchitis, not specified as acute or chronic 10/27/2006 Dizziness and giddiness 10/27/19 07 documented as of this encounter (statuses as of 12/13/2022) [facility] History of Past illness Narrative* Problem Noted Date Resolved Date 1.1 Migraine without aura, not intractable [346. 10] 02/08/2015 11/01/2022 Intractable migraine with aura without status mi grainosus 02/08/2015 11/01/2022 Last Assessment & Plan: Assessment: otc analgesics as needed 1.5.1 Chronic migraine [346.71] 02/08/2015 11/01/2022 Rheumatoid arthritis 05/02/2011 09/11/2016 Overview: Follows with Rheum Bronchitis, not specified as acute or chronic 10/27/2006 Dizziness and giddiness 10/27/19 07 documented as of this encounter (statuses as of 12/16/2022) [facility] History of Past illness Narrative* Problem Noted Date Resolved Date 1.1 Migraine without aura, not intractable [346. 10] 02/08/2015 11/01/2022 Intractable migraine with aura without status mi grainosus 02/08/2015 11/01/2022 Last Assessment & Plan: Assessment: otc analgesics as needed 1.5.1 Chronic migraine [346.71] 02/08/2015 11/01/2022 Rheumatoid arthritis 05/02/2011 09/11/2016 Overview: Follows with Rheum Bronchitis, not specified as acute or chronic 10/27/2006 Dizziness and giddiness 10/27/19 07 documented as of this encounter (statuses as of 12/16/2022) [facility] History of Past illness Narrative* Problem Noted Date Resolved Date 1.1 Migraine without aura, not intractable [346. 10] 02/08/2015 11/01/2022 Intractable migraine with aura without status mi grainosus 02/08/2015 11/01/2022 Last Assessment & Plan: Assessment: otc analgesics as needed 1.5.1 Chronic migraine [346.71] 02/08/2015 11/01/2022 Rheumatoid arthritis 05/02/2011 09/11/2016 Overview: Follows with Rheum Bronchitis, not specified as acute or chronic 10/27/2006 Dizziness and giddiness 10/27/19 07 documented as of this encounter (statuses as of 12/17/2022) [facility] History of Past illness Narrative* Problem Noted Date Resolved Date 1.1 Migraine without aura, not intractable [346. 10] 02/08/2015 11/01/2022 Intractable migraine with aura without status mi grainosus 02/08/2015 11/01/2022 Last Assessment & Plan: Assessment: otc analgesics as needed 1.5.1 Chronic migraine [346.71] 02/08/2015 11/01/2022 Rheumatoid arthritis 05/02/2011 09/11/2016 Overview: Follows with Rheum Bronchitis, not specified as acute or chronic 10/27/2006 Dizziness and giddiness 10/27/19 07 documented as of this encounter (statuses as of 12/20/2022) [facility] History of Past illness Narrative* Problem Noted Date Resolved Date 1.1 Migraine without aura, not intractable [346. 10] 02/08/2015 11/01/2022 Intractable migraine with aura without status mi grainosus 02/08/2015 11/01/2022 Last Assessment & Plan: Assessment: otc analgesics as needed 1.5.1 Chronic migraine [346.71] 02/08/2015 11/01/2022 Rheumatoid arthritis 05/02/2011 09/11/2016 Overview: Follows with Rheum Bronchitis, not specified as acute or chronic 10/27/2006 Dizziness and giddiness 10/27/19 07 documented as of this encounter (statuses as of 12/24/2022) [facility] History of Past illness Narrative* Problem Noted Date Resolved Date 1.1 Migraine without aura, not intractable [346. 10] 02/08/2015 11/01/2022 Intractable migraine with aura without status mi grainosus 02/08/2015 11/01/2022 Last Assessment & Plan: Assessment: otc analgesics as needed 1.5.1 Chronic migraine [346.71] 02/08/2015 11/01/2022 Rheumatoid arthritis 05/02/2011 09/11/2016 Overview: Follows with Rheum Bronchitis, not specified as acute or chronic 10/27/2006 Dizziness and giddiness 10/27/19 07 documented as of this encounter (statuses as of 12/24/2022) [facility] History of Past illness Narrative* Problem Noted Date Resolved Date 1.1 Migraine without aura, not intractable [346. 10] 02/08/2015 11/01/2022 Intractable migraine with aura without status mi grainosus 02/08/2015 11/01/2022 Last Assessment & Plan: Assessment: otc analgesics as needed 1.5.1 Chronic migraine [346.71] 02/08/2015 11/01/2022 Rheumatoid arthritis 05/02/2011 09/11/2016 Overview: Follows with Rheum Bronchitis, not specified as acute or chronic 10/27/2006 Dizziness and giddiness 10/27/19 07 documented as of this encounter (statuses as of 12/26/2022) [facility] History of Past illness Narrative* Problem Noted Date Resolved Date 1.1 Migraine without aura, not intractable [346. 10] 02/08/2015 11/01/2022 Intractable migraine with aura without status mi grainosus 02/08/2015 11/01/2022 Last Assessment & Plan: Assessment: otc analgesics as needed 1.5.1 Chronic migraine [346.71] 02/08/2015 11/01/2022 Rheumatoid arthritis 05/02/2011 09/11/2016 Overview: Follows with Rheum Bronchitis, not specified as acute or chronic 10/27/2006 Dizziness and giddiness 10/27/19 07 documented as of this encounter (statuses as of 12/31/2022) [facility] History of Past illness Narrative* Problem Noted Date Resolved Date 1.1 Migraine without aura, not intractable [346. 10] 02/08/2015 11/01/2022 Intractable migraine with aura without status mi grainosus 02/08/2015 11/01/2022 Last Assessment & Plan: Assessment: otc analgesics as needed 1.5.1 Chronic migraine [346.71] 02/08/2015 11/01/2022 Rheumatoid arthritis 05/02/2011 09/11/2016 Overview: Follows with Rheum Bronchitis, not specified as acute or chronic 10/27/2006 Dizziness and giddiness 10/27/19 07 documented as of this encounter (statuses as of 01/03/2023) [facility] History of Past illness Narrative* Problem Noted Date Resolved Date 1.1 Migraine without aura, not intractable [346. 10] 02/08/2015 11/01/2022 Intractable migraine with aura without status mi grainosus 02/08/2015 11/01/2022 Last Assessment & Plan: Assessment: otc analgesics as needed 1.5.1 Chronic migraine [346.71] 02/08/2015 11/01/2022 Rheumatoid arthritis 05/02/2011 09/11/2016 Overview: Follows with Rheum Bronchitis, not specified as acute or chronic 10/27/2006 Dizziness and giddiness 10/27/19 07 documented as of this encounter (statuses as of 01/10/2023) [facility] History of Past illness Narrative* Problem Noted Date Resolved Date 1.1 Migraine without aura, not intractable [346. 10] 02/08/2015 11/01/2022 Intractable migraine with aura without status mi grainosus 02/08/2015 11/01/2022 Last Assessment & Plan: Assessment: otc analgesics as needed 1.5.1 Chronic migraine [346.71] 02/08/2015 11/01/2022 Rheumatoid arthritis 05/02/2011 09/11/2016 Overview: Follows with Rheum Bronchitis, not specified as acute or chronic 10/27/2006 Dizziness and giddiness 10/27/19 07 documented as of this encounter (statuses as of 01/14/2023) [facility] History of Past illness Narrative* Problem Noted Date Resolved Date 1.1 Migraine without aura, not intractable [346. 10] 02/08/2015 11/01/2022 Intractable migraine with aura without status mi grainosus 02/08/2015 11/01/2022 Last Assessment & Plan: Assessment: otc analgesics as needed 1.5.1 Chronic migraine [346.71] 02/08/2015 11/01/2022 Rheumatoid arthritis 05/02/2011 09/11/2016 Overview: Follows with Rheum Bronchitis, not specified as acute or chronic 10/27/2006 Dizziness and giddiness 10/27/19 07 documented as of this encounter (statuses as of 01/22/2023) [facility]05-20-2015 History of Past illness Narrative* Problem Noted Date Resolved Date 1.1 Migraine without aura, not intractable [346. 10] 02/08/2015 11/01/2022 Intractable migraine with aura without status mi grainosus 02/08/2015 11/01/2022 Last Assessment & Plan: Assessment: otc analgesics as needed 1.5.1 Chronic migraine [346.71] 02/08/2015 11/01/2022 Rheumatoid arthritis 05/02/2011 09/11/2016 Overview: Follows with Rheum Bronchitis, not specified as acute or chronic 10/27/2006 Dizziness and giddiness 10/27/19 07 documented as of this encounter (statuses as of 01/29/2023) [facility]05-20-2015 History of Past illness Narrative* Problem Noted Date Resolved Date 1.1 Migraine without aura, not intractable [346. 10] 02/08/2015 11/01/2022 Intractable migraine with aura without status mi grainosus 02/08/2015 11/01/2022 Last Assessment & Plan: Assessment: otc analgesics as needed 1.5.1 Chronic migraine [346.71] 02/08/2015 11/01/2022 Rheumatoid arthritis 05/02/2011 09/11/2016 Overview: Follows with Rheum Bronchitis, not specified as acute or chronic 10/27/2006 Dizziness and giddiness 10/27/19 07 documented as of this encounter (statuses as of 02/04/2023) [facility]05-20-2015 History of Past illness Narrative* Problem Noted Date Resolved Date 1.1 Migraine without aura, not intractable [346. 10] 02/08/2015 11/01/2022 Intractable migraine with aura without status mi grainosus 02/08/2015 11/01/2022 Last Assessment & Plan: Assessment: otc analgesics as needed 1.5.1 Chronic migraine [346.71] 02/08/2015 11/01/2022 Rheumatoid arthritis 05/02/2011 09/11/2016 Overview: Follows with Rheum Bronchitis, not specified as acute or chronic 10/27/2006 Dizziness and giddiness 10/27/19 07 documented as of this encounter (statuses as of 02/04/2023) [facility]05-20-2015 History of Past illness Narrative* Problem Noted Date Resolved Date 1.1 Migraine without aura, not intractable [346. 10] 02/08/2015 11/01/2022 Intractable migraine with aura without status mi grainosus 02/08/2015 11/01/2022 Last Assessment & Plan: Assessment: otc analgesics as needed 1.5.1 Chronic migraine [346.71] 02/08/2015 11/01/2022 Rheumatoid arthritis 05/02/2011 09/11/2016 Overview: Follows with Rheum Bronchitis, not specified as acute or chronic 10/27/2006 Dizziness and giddiness 10/27/19 07 documented as of this encounter (statuses as of 02/19/2023) [facility]05-20[facility]2015 History of Past illness Narrative* Problem Noted Date Resolved Date 1.1 Migraine without aura, not intractable [346. 10] 02/08/2015 11/01/2022 Intractable migraine with aura without status mi grainosus 02/08/2015 11/01/2022 Last Assessment & Plan: Assessment: otc analgesics as needed 1.5.1 Chronic migraine [346.71] 02/08/2015 11/01/2022 Rheumatoid arthritis 05/02/2011 09/11/2016 Overview: Follows with Rheum Bronchitis, not specified as acute or chronic 10/27/2006 Dizziness and giddiness 10/27/19 07 documented as of this encounter (statuses as of 02/26/2023) [facility]05-20-2015 History of Past illness Narrative* Problem Noted Date Resolved Date 1.1 Migraine without aura, not intractable [346. 10] 02/08/2015 11/01/2022 Intractable migraine with aura without status mi grainosus 02/08/2015 11/01/2022 Last Assessment & Plan: Assessment: otc analgesics as needed 1.5.1 Chronic migraine [346.71] 02/08/2015 11/01/2022 Rheumatoid arthritis 05/02/2011 09/11/2016 Overview: Follows with Rheum Bronchitis, not specified as acute or chronic 10/27/2006 Dizziness and giddiness 10/27/19 07 documented as of this encounter (statuses as of 03/05/2023) [facility]2015 History of Past illness Narrative* Problem Noted Date Resolved Date 1.1 Migraine without aura, not intractable [346. 10] 02/08/2015 11/01/2022 Intractable migraine with aura without status mi grainosus 02/08/2015 11/01/2022 Last Assessment & Plan: Assessment: otc analgesics as needed 1.5.1 Chronic migraine [346.71] 02/08/2015 11/01/2022 Rheumatoid arthritis 05/02/2011 09/11/2016 Overview: Follows with Rheum Bronchitis, not specified as acute or chronic 10/27/2006 Dizziness and giddiness 10/27/19 07 documented as of this encounter (statuses as of 03/14/2023) [facility]05-20-2015 History of Past illness Narrative* Problem Noted Date Resolved Date 1.1 Migraine without aura, not intractable [346. 10] 02/08/2015 11/01/2022 Intractable migraine with aura without status mi grainosus 02/08/2015 11/01/2022 Last Assessment & Plan: Assessment: otc analgesics as needed 1.5.1 Chronic migraine [346.71] 02/08/2015 11/01/2022 Rheumatoid arthritis 05/02/2011 09/11/2016 Overview: Follows with Rheum Bronchitis, not specified as acute or chronic 10/27/2006 Dizziness and giddiness 10/27/19 07 documented as of this encounter (statuses as of 03/15/2023) [facility]05[facility]20[facility]2015 History of Past illness Narrative* Problem Noted Date Resolved Date 1.1 Migraine without aura, not intractable [346. 10] 02/08/2015 11/01/2022 Intractable migraine with aura without status mi grainosus 02/08/2015 11/01/2022 Last Assessment & Plan: Assessment: otc analgesics as needed 1.5.1 Chronic migraine [346.71] 02/08/2015 11/01/2022 Rheumatoid arthritis 05/02/2011 09/11/2016 Overview: Follows with Rheum Bronchitis, not specified as acute or chronic 10/27/2006 Dizziness and giddiness 10/27/19 07 documented as of this encounter (statuses as of 03/26/2023) [facility]05-[facility]2015 History of Past illness Narrative* Problem Noted Date Resolved Date 1.1 Migraine without aura, not intractable [346. 10] 02/08/2015 11/01/2022 Intractable migraine with aura without status mi grainosus 02/08/2015 11/01/2022 Last Assessment & Plan: Assessment: otc analgesics as needed 1.5.1 Chronic migraine [346.71] 02/08/2015 11/01/2022 Rheumatoid arthritis 05/02/2011 09/11/2016 Overview: Follows with Rheum Bronchitis, not specified as acute or chronic 10/27/2006 Dizziness and giddiness 10/27/19 07 documented as of this encounter (statuses as of 03/27/2023) [facility]2015 History of Past illness Narrative* Problem Noted Date Resolved Date 1.1 Migraine without aura, not intractable [346. 10] 02/08/2015 11/01/2022 Intractable migraine with aura without status mi grainosus 02/08/2015 11/01/2022 Last Assessment & Plan: Assessment: otc analgesics as needed 1.5.1 Chronic migraine [346.71] 02/08/2015 11/01/2022 Rheumatoid arthritis 05/02/2011 09/11/2016 Overview: Follows with Rheum Bronchitis, not specified as acute or chronic 10/27/2006 Dizziness and giddiness 10/27/19 07 documented as of this encounter (statuses as of 03/27/2023) [facility]2015 History of Past illness Narrative* Problem Noted Date Diagnosed Date Resolved Date 1.1 Migraine without aura, n ot intractable [346.10] 02/08/2015 11/01/2022 Intractable migraine with au ra without status migrainosus 02/08/2015 11/01/2022 Last Assessment & Plan: Assessment: otc analgesics as needed 1.5.1 Chronic migraine [346.71] 02/08/2015 11/01/2022 Rheumatoid arthritis 05/02/2011 016 Overview: Follows with Rheum Bronchitis, not specified as acute or chronic 10/27/2006 Dizziness and giddiness 01/2007 documented as of this encounter (statuses as of 07/11/2023) [facility]2015 History of Past illness Narrative* Problem Noted Date Diagnosed Date Resolved Date 1.1 Migraine without aura, n ot intractable [346.10] 02/08/2015 11/01/2022 Intractable migraine with au ra without status migrainosus 02/08/2015 11/01/2022 Last Assessment & Plan: Assessment: otc analgesics as needed 1.5.1 Chronic migraine [346.71] 02/08/2015 11/01/2022 Rheumatoid arthritis 05/02/2011 016 Overview: Follows with Rheum Bronchitis, not specified as acute or chronic 10/27/2006 Dizziness and giddiness 01/2007 documented as of this encounter (statuses as of 07/26/2023) [facility]2015 History of Past illness Narrative* Problem Noted Date Diagnosed Date Resolved Date 1.1 Migraine without aura, n ot intractable [346.10] 02/08/2015 11/01/2022 Intractable migraine with au ra without status migrainosus 02/08/2015 11/01/2022 Last Assessment & Plan: Assessment: otc analgesics as needed 1.5.1 Chronic migraine [346.71] 02/08/2015 11/01/2022 Rheumatoid arthritis 05/02/2011 016 Overview: Follows with Rheum Bronchitis, not specified as acute or chronic 10/27/2006 Dizziness and giddiness 01/2007 documented as of this encounter (statuses as of 08/01/2023) [facility]2015 History of Past illness Narrative* Problem Noted Date Diagnosed Date Resolved Date 1.1 Migraine without aura, n ot intractable [346.10] 02/08/2015 11/01/2022 Intractable migraine with au ra without status migrainosus 02/08/2015 11/01/2022 Last Assessment & Plan: Assessment: otc analgesics as needed 1.5.1 Chronic migraine [346.71] 02/08/2015 11/01/2022 Rheumatoid arthritis 05/02/2011 016 Overview: Follows with Rheum Bronchitis, not specified as acute or chronic 10/27/2006 Dizziness and giddiness 01/2007 documented as of this encounter (statuses as of 08/21/2023) [facility]2015 History of Past illness Narrative* Problem Noted Date Diagnosed Date Resolved Date 1.1 Migraine without aura, n ot intractable [346.10] 02/08/2015 11/01/2022 Intractable migraine with au ra without status migrainosus 02/08/2015 11/01/2022 Last Assessment & Plan: Assessment: otc analgesics as needed 1.5.1 Chronic migraine [346.71] 02/08/2015 11/01/2022 Rheumatoid arthritis 05/02/2011 016 Overview: Follows with Rheum Bronchitis, not specified as acute or chronic 10/27/2006 Dizziness and giddiness 01/2007 documented as of this encounter (statuses as of 08/22/2023) [facility]2015 History of Past illness Narrative* Problem Noted Date Diagnosed Date Resolved Date 1.1 Migraine without aura, n ot intractable [346.10] 02/08/2015 11/01/2022 Intractable migraine with au ra without status migrainosus 02/08/2015 11/01/2022 Last Assessment & Plan: Assessment: otc analgesics as needed 1.5.1 Chronic migraine [346.71] 02/08/2015 11/01/2022 Rheumatoid arthritis 05/02/2011 016 Overview: Follows with Rheum Bronchitis, not specified as acute or chronic 10/27/2006 Dizziness and giddiness 01/2007 documented as of this encounter (statuses as of 09/04/2023) [facility]2015 History of Past illness Narrative* Problem Noted Date Diagnosed Date Resolved Date 1.1 Migraine without aura, n ot intractable [346.10] 02/08/2015 11/01/2022 Intractable migraine with au ra without status migrainosus 02/08/2015 11/01/2022 Last Assessment & Plan: Assessment: otc analgesics as needed 1.5.1 Chronic migraine [346.71] 02/08/2015 11/01/2022 Rheumatoid arthritis 05/02/2011 016 Overview: Follows with Rheum Bronchitis, not specified as acute or chronic 10/27/2006 Dizziness and giddiness 01/2007 documented as of this encounter (statuses as of 09/06/2023) [facility]2015 History of Past illness Narrative* Problem Noted Date Diagnosed Date Resolved Date 1.1 Migraine without aura, n ot intractable [346.10] 02/08/2015 11/01/2022 Intractable migraine with au ra without status migrainosus 02/08/2015 11/01/2022 Last Assessment & Plan: Assessment: otc analgesics as needed 1.5.1 Chronic migraine [346.71] 02/08/2015 11/01/2022 Rheumatoid arthritis 05/02/2011 016 Overview: Follows with Rheum Bronchitis, not specified as acute or chronic 10/27/2006 Dizziness and giddiness 0 01/2007 documented as of this encounter (statuses as of 12/10/2023) [facility] History of Past illness Narrative* Problem Noted Date Diagnosed Date Resolved Date 1.1 Migraine without aura, n ot intractable [346.10] 02/08/2015 11/01/2022 Intractable migraine with au ra without status migrainosus 02/08/2015 11/01/2022 Last Assessment & Plan: Assessment: otc analgesics as needed 1.5.1 Chronic migraine [346.71] 02/08/2015 11/01/2022 Rheumatoid arthritis 05/02/2011 016 Overview: Follows with Rheum Bronchitis, not specified as acute or chronic 10/27/2006 Dizziness and giddiness 0 01/2007 documented as of this encounter (statuses as of 12/16/2023) [facility] History of Past illness Narrative* Problem Noted Date Diagnosed Date Resolved Date 1.1 Migraine without aura, n ot intractable [346.10] 02/08/2015 11/01/2022 Intractable migraine with au ra without status migrainosus 02/08/2015 11/01/2022 Last Assessment & Plan: Assessment: otc analgesics as needed 1.5.1 Chronic migraine [346.71] 02/08/2015 11/01/2022 Rheumatoid arthritis 05/02/2011 016 Overview: Follows with Rheum Bronchitis, not specified as acute or chronic 10/27/2006 Dizziness and giddiness 0 01/2007 documented as of this encounter (statuses as of 01/01/2024) [facility] History of Past illness Narrative* Problem Noted Date Resolved Date Rheumatoid arthritis 05/02/2011 09/11/2016 Overview: Follows with Rheum Bronchitis, not specified as acute or chronic 10/27/2006 Dizziness and giddiness 10/27/19 07 documented as of this encounter (statuses as of 02/04/2022) [address]11-2011 History of Past illness Narrative* Problem Noted Date Resolved Date Rheumatoid arthritis 05/02/2011 09/11/2016 Overview: Follows with Rheum Bronchitis, not specified as acute or chronic 10/27/2006 Dizziness and giddiness 10/27/19 07 documented as of this encounter (statuses as of 02/06/2022) [address]2011 History of Past illness Narrative* Problem Noted Date Resolved Date Rheumatoid arthritis 05/02/2011 09/11/2016 Overview: Follows with Rheum Bronchitis, not specified as acute or chronic 10/27/2006 Dizziness and giddiness 10/27/19 07 documented as of this encounter (statuses as of 02/25/2022) [address]2011 History of Past illness Narrative* Problem Noted Date Resolved Date Rheumatoid arthritis 05/02/2011 09/11/2016 Overview: Follows with Rheum Bronchitis, not specified as acute or chronic 10/27/2006 Dizziness and giddiness 10/27/19 07 documented as of this encounter (statuses as of 02/25/2022) [facility] History of Past illness Narrative* Problem Noted Date Resolved Date Rheumatoid arthritis 05/02/2011 09/11/2016 Overview: Follows with Rheum Bronchitis, not specified as acute or chronic 10/27/2006 Dizziness and giddiness 10/27/19 07 documented as of this encounter (statuses as of 02/28/2022) [address]11[address]2011 History of Past illness Narrative* Problem Noted Date Resolved Date Rheumatoid arthritis 05/02/2011 09/11/2016 Overview: Follows with Rheum Bronchitis, not specified as acute or chronic 10/27/2006 Dizziness and giddiness 10/27/19 07 documented as of this encounter (statuses as of 03/04/2022) [address]2011 History of Past illness Narrative* Problem Noted Date Resolved Date Rheumatoid arthritis 05/02/2011 09/11/2016 Overview: Follows with Rheum Bronchitis, not specified as acute or chronic 10/27/2006 Dizziness and giddiness 10/27/19 07 documented as of this encounter (statuses as of 03/04/2022) [address]2011 History of Past illness Narrative* Problem Noted Date Resolved Date Rheumatoid arthritis 05/02/2011 09/11/2016 Overview: Follows with Rheum Bronchitis, not specified as acute or chronic 10/27/2006 Dizziness and giddiness 10/27/19 07 documented as of this encounter (statuses as of 03/08/2022) [address]2011 History of Past illness Narrative* Problem Noted Date Resolved Date Rheumatoid arthritis 05/02/2011 09/11/2016 Overview: Follows with Rheum Bronchitis, not specified as acute or chronic 10/27/2006 Dizziness and giddiness 10/27/19 07 documented as of this encounter (statuses as of 03/11/2022) [address]2011 History of Past illness Narrative* Problem Noted Date Resolved Date Rheumatoid arthritis 05/02/2011 09/11/2016 Overview: Follows with Rheum Bronchitis, not specified as acute or chronic 10/27/2006 Dizziness and giddiness 10/27/19 07 documented as of this encounter (statuses as of 03/19/2022) [address]2011 History of Past illness Narrative* Problem Noted Date Resolved Date Rheumatoid arthritis 05/02/2011 09/11/2016 Overview: Follows with Rheum Bronchitis, not specified as acute or chronic 10/27/2006 Dizziness and giddiness 10/27/19 07 documented as of this encounter (statuses as of 03/21/2022) [address]2011 History of Past illness Narrative* Problem Noted Date Resolved Date Rheumatoid arthritis 05/02/2011 09/11/2016 Overview: Follows with Rheum Bronchitis, not specified as acute or chronic 10/27/2006 Dizziness and giddiness 10/27/19 07 documented as of this encounter (statuses as of 03/28/2022) [address]2011 History of Past illness Narrative* Problem Noted Date Resolved Date Rheumatoid arthritis 05/02/2011 09/11/2016 Overview: Follows with Rheum Bronchitis, not specified as acute or chronic 10/27/2006 Dizziness and giddiness 10/27/19 07 documented as of this encounter (statuses as of 03/29/2022) [facility] History of Past illness Narrative* Problem Noted Date Resolved Date Rheumatoid arthritis 05/02/2011 09/11/2016 Overview: Follows with Rheum Bronchitis, not specified as acute or chronic 10/27/2006 Dizziness and giddiness 10/27/19 07 documented as of this encounter (statuses as of 04/11/2022) [facility] History of Past illness Narrative* Problem Noted Date Resolved Date Rheumatoid arthritis 05/02/2011 09/11/2016 Overview: Follows with Rheum Bronchitis, not specified as acute or chronic 10/27/2006 Dizziness and giddiness 10/27/19 07 documented as of this encounter (statuses as of 04/18/2022) [facility] History of Past illness Narrative* Problem Noted Date Resolved Date Rheumatoid arthritis 05/02/2011 09/11/2016 Overview: Follows with Rheum Bronchitis, not specified as acute or chronic 10/27/2006 Dizziness and giddiness 10/27/19 07 documented as of this encounter (statuses as of 04/24/2022) [facility] History of Past illness Narrative* Problem Noted Date Resolved Date Rheumatoid arthritis 05/02/2011 09/11/2016 Overview: Follows with Rheum Bronchitis, not specified as acute or chronic 10/27/2006 Dizziness and giddiness 10/27/19 07 documented as of this encounter (statuses as of 05/07/2022) [place] [id number] History of Past illness Narrative* Problem Noted Date Resolved Date Rheumatoid arthritis 05/02/2011 09/11/2016 Overview: Follows with Rheum Bronchitis, not specified as acute or chronic 10/27/2006 Dizziness and giddiness 10/27/19 07 documented as of this encounter (statuses as of 05/09/2022) [address]2011 History of Past illness Narrative* Problem Noted Date Resolved Date Rheumatoid arthritis 05/02/2011 09/11/2016 Overview: Follows with Rheum Bronchitis, not specified as acute or chronic 10/27/2006 Dizziness and giddiness 10/27/19 07 documented as of this encounter (statuses as of 05/13/2022) [address]2011 History of Past illness Narrative* Problem Noted Date Resolved Date Rheumatoid arthritis 05/02/2011 09/11/2016 Overview: Follows with Rheum Bronchitis, not specified as acute or chronic 10/27/2006 Dizziness and giddiness 10/27/19 07 documented as of this encounter (statuses as of 05/14/2022) [address]11[address]2011 History of Past illness Narrative* Problem Noted Date Resolved Date Rheumatoid arthritis 05/02/2011 09/11/2016 Overview: Follows with Rheum Bronchitis, not specified as acute or chronic 10/27/2006 Dizziness and giddiness 10/27/19 07 documented as of this encounter (statuses as of 05/31/2022) [address]2011 History of Past illness Narrative* Problem Noted Date Resolved Date Rheumatoid arthritis 05/02/2011 09/11/2016 Overview: Follows with Rheum Bronchitis, not specified as acute or chronic 10/27/2006 Dizziness and giddiness 10/27/19 07 documented as of this encounter (statuses as of 06/03/2022) [address]2011 History of Past illness Narrative* Problem Noted Date Resolved Date Rheumatoid arthritis 05/02/2011 09/11/2016 Overview: Follows with Rheum Bronchitis, not specified as acute or chronic 10/27/2006 Dizziness and giddiness 10/27/19 07 documented as of this encounter (statuses as of 06/05/2022) [facility] History of Past illness Narrative* Problem Noted Date Resolved Date Rheumatoid arthritis 05/02/2011 09/11/2016 Overview: Follows with Rheum Bronchitis, not specified as acute or chronic 10/27/2006 Dizziness and giddiness 10/27/19 07 documented as of this encounter (statuses as of 06/06/2022) [address]2011 History of Past illness Narrative* Problem Noted Date Resolved Date Rheumatoid arthritis 05/02/2011 09/11/2016 Overview: Follows with Rheum Bronchitis, not specified as acute or chronic 10/27/2006 Dizziness and giddiness 10/27/19 07 documented as of this encounter (statuses as of 06/07/2022) [address]2011 History of Past illness Narrative* Problem Noted Date Resolved Date Rheumatoid arthritis 05/02/2011 09/11/2016 Overview: Follows with Rheum Bronchitis, not specified as acute or chronic 10/27/2006 Dizziness and giddiness 10/27/19 07 documented as of this encounter (statuses as of 06/07/2022) [address]2011 History of Past illness Narrative* Problem Noted Date Resolved Date Rheumatoid arthritis 05/02/2011 09/11/2016 Overview: Follows with Rheum Bronchitis, not specified as acute or chronic 10/27/2006 Dizziness and giddiness 10/27/19 07 documented as of this encounter (statuses as of 06/10/2022) [address]2011 History of Past illness Narrative* Problem Noted Date Resolved Date Rheumatoid arthritis 05/02/2011 09/11/2016 Overview: Follows with Rheum Bronchitis, not specified as acute or chronic 10/27/2006 Dizziness and giddiness 10/27/19 07 documented as of this encounter (statuses as of 06/10/2022) [facility] History of Past illness Narrative* Problem Noted Date Resolved Date Rheumatoid arthritis 05/02/2011 09/11/2016 Overview: Follows with Rheum Bronchitis, not specified as acute or chronic 10/27/2006 Dizziness and giddiness 10/27/19 07 documented as of this encounter (statuses as of 06/11/2022) [address]11[address]2011 History of Past illness Narrative* Problem Noted Date Resolved Date Rheumatoid arthritis 05/02/2011 09/11/2016 Overview: Follows with Rheum Bronchitis, not specified as acute or chronic 10/27/2006 Dizziness and giddiness 10/27/19 07 documented as of this encounter (statuses as of 06/13/2022) [address]2011 History of Past illness Narrative* Problem Noted Date Resolved Date Rheumatoid arthritis 05/02/2011 09/11/2016 Overview: Follows with Rheum Bronchitis, not specified as acute or chronic 10/27/2006 Dizziness and giddiness 10/27/19 07 documented as of this encounter (statuses as of 06/14/2022) [address]2011 History of Past illness Narrative* Problem Noted Date Resolved Date Rheumatoid arthritis 05/02/2011 09/11/2016 Overview: Follows with Rheum Bronchitis, not specified as acute or chronic 10/27/2006 Dizziness and giddiness 10/27/19 07 documented as of this encounter (statuses as of 06/18/2022) [facility] History of Past illness Narrative* Problem Noted Date Resolved Date Rheumatoid arthritis 05/02/2011 09/11/2016 Overview: Follows with Rheum Bronchitis, not specified as acute or chronic 10/27/2006 Dizziness and giddiness 10/27/19 07 documented as of this encounter (statuses as of 06/19/2022) [address]2011 History of Past illness Narrative* Problem Noted Date Resolved Date Rheumatoid arthritis 05/02/2011 09/11/2016 Overview: Follows with Rheum Bronchitis, not specified as acute or chronic 10/27/2006 Dizziness and giddiness 10/27/19 07 documented as of this encounter (statuses as of 06/21/2022) [address]2011 History of Past illness Narrative* Problem Noted Date Resolved Date Rheumatoid arthritis 05/02/2011 09/11/2016 Overview: Follows with Rheum Bronchitis, not specified as acute or chronic 10/27/2006 Dizziness and giddiness 10/27/19 07 documented as of this encounter (statuses as of 06/22/2022) [address]2011 History of Past illness Narrative* Problem Noted Date Resolved Date Rheumatoid arthritis 05/02/2011 09/11/2016 Overview: Follows with Rheum Bronchitis, not specified as acute or chronic 10/27/2006 Dizziness and giddiness 10/27/19 07 documented as of this encounter (statuses as of 06/25/2022) [address]11-2011 History of Past illness Narrative* Problem Noted Date Resolved Date Rheumatoid arthritis 05/02/2011 09/11/2016 Overview: Follows with Rheum Bronchitis, not specified as acute or chronic 10/27/2006 Dizziness and giddiness 10/27/19 07 documented as of this encounter (statuses as of 06/25/2022) [address]11-2011 History of Past illness Narrative* Problem Noted Date Resolved Date Rheumatoid arthritis 05/02/2011 09/11/2016 Overview: Follows with Rheum Bronchitis, not specified as acute or chronic 10/27/2006 Dizziness and giddiness 10/27/19 07 documented as of this encounter (statuses as of 06/27/2022) [facility]08-11-2011 History of Past illness Narrative* Problem Noted Date Resolved Date Rheumatoid arthritis 05/02/2011 09/11/2016 Overview: Follows with Rheum Bronchitis, not specified as acute or chronic 10/27/2006 Dizziness and giddiness 10/27/19 07 documented as of this encounter (statuses as of 07/01/2022) [address]11-2011 History of Past illness Narrative* Problem Noted Date Resolved Date Rheumatoid arthritis 05/02/2011 09/11/2016 Overview: Follows with Rheum Bronchitis, not specified as acute or chronic 10/27/2006 Dizziness and giddiness 10/27/19 07 documented as of this encounter (statuses as of 07/03/2022) [address]11-2011 History of Past illness Narrative* Problem Noted Date Resolved Date Rheumatoid arthritis 05/02/2011 09/11/2016 Overview: Follows with Rheum Bronchitis, not specified as acute or chronic 10/27/2006 Dizziness and giddiness 10/27/19 07 documented as of this encounter (statuses as of 07/05/2022) [address]11-2011 History of Past illness Narrative* Problem Noted Date Resolved Date Rheumatoid arthritis 05/02/2011 09/11/2016 Overview: Follows with Rheum Bronchitis, not specified as acute or chronic 10/27/2006 Dizziness and giddiness 10/27/19 07 documented as of this encounter (statuses as of 07/09/2022) [address]11-2011 History of Past illness Narrative* Problem Noted Date Resolved Date Rheumatoid arthritis 05/02/2011 09/11/2016 Overview: Follows with Rheum Bronchitis, not specified as acute or chronic 10/27/2006 Dizziness and giddiness 10/27/19 07 documented as of this encounter (statuses as of 07/16/2022) [address]11-2011 History of Past illness Narrative* Problem Noted Date Resolved Date Rheumatoid arthritis 05/02/2011 09/11/2016 Overview: Follows with Rheum Bronchitis, not specified as acute or chronic 10/27/2006 Dizziness and giddiness 10/27/19 07 documented as of this encounter (statuses as of 07/18/2022) [facility]08-11-2011 History of Past illness Narrative* Problem Noted Date Resolved Date Rheumatoid arthritis 05/02/2011 09/11/2016 Overview: Follows with Rheum Bronchitis, not specified as acute or chronic 10/27/2006 Dizziness and giddiness 10/27/19 07 documented as of this encounter (statuses as of 07/26/2022) [facility]08-11-2011 History of Past illness Narrative* Problem Noted Date Resolved Date Rheumatoid arthritis 05/02/2011 09/11/2016 Overview: Follows with Rheum Bronchitis, not specified as acute or chronic 10/27/2006 Dizziness and giddiness 10/27/19 07 documented as of this encounter (statuses as of 07/29/2022) [address]11-2011 History of Past illness Narrative* Problem Noted Date Resolved Date Rheumatoid arthritis 05/02/2011 09/11/2016 Overview: Follows with Rheum Bronchitis, not specified as acute or chronic 10/27/2006 Dizziness and giddiness 10/27/19 07 documented as of this encounter (statuses as of 08/02/2022) [facility]08-11-2011 History of Past illness Narrative* Problem Noted Date Resolved Date Rheumatoid arthritis 05/02/2011 09/11/2016 Overview: Follows with Rheum Bronchitis, not specified as acute or chronic 10/27/2006 Dizziness and giddiness 10/27/19 07 documented as of this encounter (statuses as of 08/06/2022) [address]11-2011 History of Past illness Narrative* Problem Noted Date Resolved Date Rheumatoid arthritis 05/02/2011 09/11/2016 Overview: Follows with Rheum Bronchitis, not specified as acute or chronic 10/27/2006 Dizziness and giddiness 10/27/19 07 documented as of this encounter (statuses as of 08/08/2022) [facility]08[facility]2011 History of Past illness Narrative* Problem Noted Date Resolved Date Rheumatoid arthritis 05/02/2011 09/11/2016 Overview: Follows with Rheum Bronchitis, not specified as acute or chronic 10/27/2006 Dizziness and giddiness 10/27/19 07 documented as of this encounter (statuses as of 08/09/2022) [address]11-2011 History of Past illness Narrative* Problem Noted Date Resolved Date Rheumatoid arthritis 05/02/2011 09/11/2016 Overview: Follows with Rheum Bronchitis, not specified as acute or chronic 10/27/2006 Dizziness and giddiness 10/27/19 07 documented as of this encounter (statuses as of 08/13/2022) [address]11-2011 History of Past illness Narrative* Problem Noted Date Resolved Date Rheumatoid arthritis 05/02/2011 09/11/2016 Overview: Follows with Rheum Bronchitis, not specified as acute or chronic 10/27/2006 Dizziness and giddiness 10/27/19 07 documented as of this encounter (statuses as of 08/14/2022) [address]11-2011 History of Past illness Narrative* Problem Noted Date Resolved Date Rheumatoid arthritis 05/02/2011 09/11/2016 Overview: Follows with Rheum Bronchitis, not specified as acute or chronic 10/27/2006 Dizziness and giddiness 10/27/19 07 documented as of this encounter (statuses as of 08/19/2022) [address]11-2011 History of Past illness Narrative* Problem Noted Date Resolved Date Rheumatoid arthritis 05/02/2011 09/11/2016 Overview: Follows with Rheum Bronchitis, not specified as acute or chronic 10/27/2006 Dizziness and giddiness 10/27/19 07 documented as of this encounter (statuses as of 08/29/2022) [address]11-2011 History of Past illness Narrative* Problem Noted Date Resolved Date Rheumatoid arthritis 05/02/2011 09/11/2016 Overview: Follows with Rheum Bronchitis, not specified as acute or chronic 10/27/2006 Dizziness and giddiness 10/27/19 07 documented as of this encounter (statuses as of 09/06/2022) [address]11-2011 History of Past illness Narrative* Problem Noted Date Resolved Date Rheumatoid arthritis 05/02/2011 09/11/2016 Overview: Follows with Rheum Bronchitis, not specified as acute or chronic 10/27/2006 Dizziness and giddiness 10/27/19 07 documented as of this encounter (statuses as of 09/10/2022) [address]11-2011 History of Past illness Narrative* Problem Noted Date Resolved Date Rheumatoid arthritis 05/02/2011 09/11/2016 Overview: Follows with Rheum Bronchitis, not specified as acute or chronic 10/27/2006 Dizziness and giddiness 10/27/19 07 documented as of this encounter (statuses as of 09/11/2022) [facility]08-11-2011 History of Past illness Narrative* Problem Noted Date Resolved Date Rheumatoid arthritis 05/02/2011 09/11/2016 Overview: Follows with Rheum Bronchitis, not specified as acute or chronic 10/27/2006 Dizziness and giddiness 10/27/19 07 documented as of this encounter (statuses as of 10/23/2022) [facility] + Plan note No data available for this section [facility] Evaluation note* Diagnosis Acquired hypothyroidism Unspecified hypothyroidism documented in this encounter [facility] note* Diagnosis Rheumatoid arthritis involving multiple sites with positive rheumatoid factor (HCC)- Primary High risk medication use Encounter for long-term (current) use of other medications Diffuse pain Generalized pain 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 Encounter for long-term (current) use of other medications Morning stiffness of joints Stiffness of joint, not elsewhere classified, unspecified site [facility] Diagnosis History of esophageal stricture- Primary Personal history of other diseases of digestive system Gastroesophageal reflux disease without esophagitis Esophageal reflux Elevated LFTs Other abnormal blood chemistry documented in this encounter [facility] note* Diagnosis NIKO on CPAP- Primary Obstructive sleep apnea (adult) (pediatric) Frequent nocturnal awakening Other sleep disturbances documented in this encounter [facility] note* Diagnosis Moderate obstructive sleep apnea Obstructive sleep apnea (adult) (pediatric) [facility]* Diagnosis Rheumatoid arthritis involving multiple sites with positive rheumatoid factor (HCC)- Primary Injection education, encounter for Other specified counseling documented in this encounter [facility] noteNo assessment information availableWSamaritan [facility] Work Phone: Evaluation note* Diagnosis Rheumatoid arthritis involving both knees with positive rheumatoid factor (HCC)- Primary Other fatigue NIKO (obstructive sleep apnea) Obstructive sleep apnea (adult) (pediatric) documented in this encounter [facility] note* Diagnosis Screen for colon cancer- Primary Special screening for malignant neoplasms, colon History of esophageal stricture Personal history of other diseases of digestive system Gastroesophageal reflux disease without esophagitis Esophageal reflux Belching Flatulence, eructation, and gas pain Iron deficiency anemia, unspecified iron deficiency anemia type [facility] Pain Generalized pain Pain in both knees, unspecified chronicity [facility] Diagnosis Primary osteoarthritis of right hip- Primary Primary localized osteoarthrosis, pelvic region and thigh [facility] Diagnosis Pre-operative examination- Primary Preoperative examination, unspecified Primary osteoarthritis of right hip Primary localized osteoarthrosis, pelvic region and thigh Anemia, unspecified type Exercise-induced asthma Exercise induced bronchospasm Gastroesophageal reflux disease without esophagitis Esophageal reflux Other specified hypothyroidism Intractable migraine with aura without status migrainosus Migraine with aura, with intractable migraine, so stated, without mention of status migrainosus Moderate obstructive sleep apnea Obstructive sleep apnea (adult) (pediatric) Rheumatoid arthritis involving both knees with positive rheumatoid factor (HCC) Status post right knee replacement Raynaud's phenomenon without gangrene Primary osteoarthritis of right hip Primary localized osteoarthrosis, pelvic region and thigh [facility] Diagnosis Iron deficiency anemia, unspecified iron deficiency anemia type- Primary Primary osteoarthritis of right hip Primary localized osteoarthrosis, pelvic region and thigh [facility] Diagnosis Iron deficiency anemia, unspecified iron deficiency anemia type- Primary Primary osteoarthritis of right hip Primary localized osteoarthrosis, pelvic region and thigh [facility] Diagnosis Primary osteoarthritis of right hip- Primary Primary localized osteoarthrosis, pelvic region and thigh Primary osteoarthritis of right hip Primary localized osteoarthrosis, pelvic region and thigh [facility] Diagnosis Iron deficiency anemia, unspecified iron deficiency anemia type- Primary Primary osteoarthritis of right hip Primary localized osteoarthrosis, pelvic region and thigh [facility]* Diagnosis Acute postoperative pain Other acute postoperative pain [facility] Diagnosis Rheumatoid arthritis involving multiple sites with positive rheumatoid factor (HCC)- Primary High risk medication use Encounter for long-term (current) use of other medications Avascular necrosis (HCC) Aseptic necrosis of bone, site unspecified [facility] Diagnosis S/P hip replacement, right- Primary [facility] Diagnosis Rheumatoid arthritis involving multiple sites with positive rheumatoid factor (HCC)- Primary [facility] Diagnosis Allergy to imaging contrast media- Primary [facility] Diagnosis Acquired hypothyroidism Unspecified hypothyroidism [facility]* Diagnosis Adverse effect of contrast media, initial encounter- Primary Adverse effect of drug, initial encounter Chronic rhinitis [facility] Diagnosis Rheumatoid arthritis involving multiple sites with positive rheumatoid factor (HCC)- Primary High risk medication use Encounter for long-term (current) use of other medications Asymptomatic postmenopausal status Scapular dysfunction Disorder of bone and cartilage, unspecified [facility]* Diagnosis COVID-19 virus infection- Primary Influenza A Influenza with other respiratory manifestations Acute asthmatic bronchitis Unspecified asthma, with exacerbation documented in this encounter [facility] note* Diagnosis Onset Date Resolution Status Acute bronchitis acute [facility] Work Phone: Evaluation note* Diagnosis Gastroesophageal reflux disease, unspecified whether esophagitis present- Primary Blood in stool Lower abdominal pain Abdominal pain, other specified site Elevated ferritin Other abnormal blood chemistry Primary osteoarthritis of left knee Primary localized osteoarthrosis, lower leg [facility]* Diagnosis Pre-operative examination- Primary Preoperative examination, unspecified Rheumatoid arthritis involving both knees with positive rheumatoid factor (HCC) Raynaud's phenomenon without gangrene Moderate obstructive sleep apnea Obstructive sleep apnea (adult) (pediatric) Iron deficiency anemia, unspecified iron deficiency anemia type Other specified hypothyroidism Gastroesophageal reflux disease without esophagitis Esophageal reflux Exercise-induced asthma Exercise induced bronchospasm Awareness of heartbeats Palpitations Status post right knee replacement Anemia, unspecified type Primary osteoarthritis of left knee Primary localized osteoarthrosis, lower leg [facility] Diagnosis Acute asthmatic bronchitis Unspecified asthma, with exacerbation Acquired hypothyroidism Unspecified hypothyroidism Primary osteoarthritis of left knee Primary localized osteoarthrosis, lower leg [facility]* Diagnosis Status post knee replacement, unspecified laterality [facility] Status post knee replacement, unspecified laterality- Primary [facility]* Diagnosis Rheumatoid arthritis involving multiple sites with positive rheumatoid factor (HCC) [facility]* Diagnosis Status post knee replacement, unspecified laterality [facility] Diagnosis Status post left knee replacement- Primary [facility]* Diagnosis S/P total knee arthroplasty, left- Primary Primary osteoarthritis of left knee Primary localized osteoarthrosis, lower leg Status post total left knee replacement [facility] S/P total knee arthroplasty, left- Primary Primary osteoarthritis of left knee Primary localized osteoarthrosis, lower leg [facility]* Diagnosis S/P total knee arthroplasty, left- Primary Primary osteoarthritis of left knee Primary localized osteoarthrosis, lower leg [facility]* Diagnosis 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- Primary Skin lesion Unspecified disorder of skin and subcutaneous tissue Painful skin lesion Abnormal skin growth [facility] Diagnosis S/P total knee arthroplasty, left- Primary Primary osteoarthritis of left knee Primary localized osteoarthrosis, lower leg [facility] Diagnosis S/P total knee arthroplasty, left- Primary Primary osteoarthritis of left knee Primary localized osteoarthrosis, lower leg [facility]* Diagnosis S/P total knee arthroplasty, left- Primary Primary osteoarthritis of left knee Primary localized osteoarthrosis, lower leg [facility]* Diagnosis Status post total left knee replacement- Primary [facility]* Diagnosis Rheumatoid arthritis involving multiple sites with positive rheumatoid factor (HCC) [facility]* Diagnosis Routine medical exam- Primary Routine general medical examination at a [facility] Breast cancer screening by mammogram Gastroesophageal reflux disease without esophagitis Esophageal reflux Acquired hypothyroidism Unspecified hypothyroidism Anemia, unspecified type Rheumatoid arthritis of multiple sites without organ or system involvement with positive rheumatoid factor (HCC) Elevated ferritin Other abnormal blood chemistry Iron deficiency anemia, unspecified iron deficiency anemia type Vitamin D deficiency Unspecified vitamin D deficiency Encounter for long-term current use of medication [facility]* Diagnosis Rheumatoid arthritis involving multiple sites with positive rheumatoid factor (HCC)- Primary Long-term use of immunosuppressant medication Encounter for long-term (current) use of other medications Joint swelling Effusion of joint, site unspecified [facility]* Diagnosis Rheumatoid arthritis involving multiple sites with positive rheumatoid factor (HCC) [facility] Diagnosis S/P total knee replacement, left [facility]* Diagnosis Rheumatoid arthritis involving multiple sites with positive rheumatoid factor (HCC) High risk medication use Encounter for long-term (current) use of other medications [facility]* Diagnosis Rheumatoid arthritis involving multiple sites with positive rheumatoid factor (HCC) [facility] Diagnosis Helicobacter pylori infection- Primary Helicobacter pylori (H. pylori) [facility]* Diagnosis Helicobacter pylori infection- Primary Helicobacter pylori (H. pylori) History of colonic polyps Personal history of colonic polyps [facility] Diagnosis High risk medication use- Primary Encounter for long-term (current) use of other medications Rheumatoid arthritis involving multiple sites with positive rheumatoid factor (HCC) [facility]* Diagnosis Encounter for screening mammogram for breast cancer [facility]* Diagnosis Gastroesophageal reflux disease without esophagitis- Primary Esophageal reflux Routine medical exam Routine general medical examination at a [facility] Acquired hypothyroidism Unspecified hypothyroidism Anemia, unspecified type [facility]* Diagnosis Pre-operative examination- Primary Preoperative examination, unspecified Intractable migraine with aura without status migrainosus Migraine with aura, with intractable migraine, so stated, without mention of status migrainosus Palpitations Moderate obstructive sleep apnea Obstructive sleep apnea (adult) (pediatric) Anemia, unspecified type Rheumatoid arthritis involving both knees with positive rheumatoid factor (HCC) Exercise-induced asthma Exercise induced bronchospasm Iron deficiency anemia, unspecified iron deficiency anemia type Intestinal malabsorption, unspecified type Pre-operative examination- Primary Preoperative examination, unspecified Primary osteoarthritis of right hip Primary localized osteoarthrosis, pelvic region and thigh Anemia, unspecified type Exercise-induced asthma Exercise induced bronchospasm Gastroesophageal reflux disease without esophagitis Esophageal reflux Other specified hypothyroidism Intractable migraine with aura without status migrainosus Migraine with aura, with intractable migraine, so stated, without mention of status migrainosus Moderate obstructive sleep apnea Obstructive sleep apnea (adult) (pediatric) Rheumatoid arthritis involving both knees with positive rheumatoid factor (HCC) Status post right knee replacement Raynaud's phenomenon without gangrene Iron deficiency anemia, unspecified iron deficiency anemia type Intestinal malabsorption, unspecified type Pre-operative examination- Primary Preoperative examination, unspecified Rheumatoid arthritis involving both knees with positive rheumatoid factor (HCC) Raynaud's phenomenon without gangrene Moderate obstructive sleep apnea Obstructive sleep apnea (adult) (pediatric) Iron deficiency anemia, unspecified iron deficiency anemia type Other specified hypothyroidism Gastroesophageal reflux disease without esophagitis Esophageal reflux Exercise-induced asthma Exercise induced bronchospasm Awareness of heartbeats Palpitations Status post right knee replacement Anemia, unspecified type Rheumatoid arthritis involving multiple sites with positive rheumatoid factor (HCC) [facility] Pre-operative examination- Primary Preoperative examination, unspecified Intractable migraine with aura without status migrainosus Migraine with aura, with intractable migraine, so stated, without mention of status migrainosus Palpitations Moderate obstructive sleep apnea Obstructive sleep apnea (adult) (pediatric) Anemia, unspecified type Rheumatoid arthritis involving both knees with positive rheumatoid factor (HCC) Exercise-induced asthma Exercise induced bronchospasm Iron deficiency anemia, unspecified iron deficiency anemia type Intestinal malabsorption, unspecified type Pre-operative examination- Primary Preoperative examination, unspecified Primary osteoarthritis of right hip Primary localized osteoarthrosis, pelvic region and thigh Anemia, unspecified type Exercise-induced asthma Exercise induced bronchospasm Gastroesophageal reflux disease without esophagitis Esophageal reflux Other specified hypothyroidism Intractable migraine with aura without status migrainosus Migraine with aura, with intractable migraine, so stated, without mention of status migrainosus Moderate obstructive sleep apnea Obstructive sleep apnea (adult) (pediatric) Rheumatoid arthritis involving both knees with positive rheumatoid factor (HCC) Status post right knee replacement Raynaud's phenomenon without gangrene Iron deficiency anemia, unspecified iron deficiency anemia type Intestinal malabsorption, unspecified type Pre-operative examination- Primary Preoperative examination, unspecified Rheumatoid arthritis involving both knees with positive rheumatoid factor (HCC) Raynaud's phenomenon without gangrene Moderate obstructive sleep apnea Obstructive sleep apnea (adult) (pediatric) Iron deficiency anemia, unspecified iron deficiency anemia type Other specified hypothyroidism Gastroesophageal reflux disease without esophagitis Esophageal reflux Exercise-induced asthma Exercise induced bronchospasm Awareness of heartbeats Palpitations Status post right knee replacement Anemia, unspecified type Acquired hypothyroidism- Primary Unspecified hypothyroidism NIKO (obstructive sleep apnea) Obstructive sleep apnea (adult) (pediatric) Rheumatoid arthritis of multiple sites without organ or system involvement with positive rheumatoid factor (HCC) Screening for cervical cancer Screening for malignant neoplasm of the cervix Encounter for immunization Need for other specified prophylactic vaccination against single bacterial disease Screening for depression Encounter for screening examination for other mental health and behavioral disorders [facility] Diagnosis Pre-operative examination- Primary Preoperative examination, unspecified Intractable migraine with aura without status migrainosus Migraine with aura, with intractable migraine, so stated, without mention of status migrainosus Palpitations Moderate obstructive sleep apnea Obstructive sleep apnea (adult) (pediatric) Anemia, unspecified type Rheumatoid arthritis involving both knees with positive rheumatoid factor (HCC) Exercise-induced asthma Exercise induced bronchospasm Iron deficiency anemia, unspecified iron deficiency anemia type Intestinal malabsorption, unspecified type Pre-operative examination- Primary Preoperative examination, unspecified Primary osteoarthritis of right hip Primary localized osteoarthrosis, pelvic region and thigh Anemia, unspecified type Exercise-induced asthma Exercise induced bronchospasm Gastroesophageal reflux disease without esophagitis Esophageal reflux Other specified hypothyroidism Intractable migraine with aura without status migrainosus Migraine with aura, with intractable migraine, so stated, without mention of status migrainosus Moderate obstructive sleep apnea Obstructive sleep apnea (adult) (pediatric) Rheumatoid arthritis involving both knees with positive rheumatoid factor (HCC) Status post right knee replacement Raynaud's phenomenon without gangrene Iron deficiency anemia, unspecified iron deficiency anemia type Intestinal malabsorption, unspecified type Pre-operative examination- Primary Preoperative examination, unspecified Rheumatoid arthritis involving both knees with positive rheumatoid factor (HCC) Raynaud's phenomenon without gangrene Moderate obstructive sleep apnea Obstructive sleep apnea (adult) (pediatric) Iron deficiency anemia, unspecified iron deficiency anemia type Other specified hypothyroidism Gastroesophageal reflux disease without esophagitis Esophageal reflux Exercise-induced asthma Exercise induced bronchospasm Awareness of heartbeats Palpitations Status post right knee replacement Anemia, unspecified type Gastroesophageal reflux disease, unspecified whether esophagitis present [facility] Diagnosis Pre-operative examination- Primary Preoperative examination, unspecified Intractable migraine with aura without status migrainosus Migraine with aura, with intractable migraine, so stated, without mention of status migrainosus Palpitations Moderate obstructive sleep apnea Obstructive sleep apnea (adult) (pediatric) Anemia, unspecified type Rheumatoid arthritis involving both knees with positive rheumatoid factor (HCC) Exercise-induced asthma Exercise induced bronchospasm Iron deficiency anemia, unspecified iron deficiency anemia type Intestinal malabsorption, unspecified type Pre-operative examination- Primary Preoperative examination, unspecified Primary osteoarthritis of right hip Primary localized osteoarthrosis, pelvic region and thigh Anemia, unspecified type Exercise-induced asthma Exercise induced bronchospasm Gastroesophageal reflux disease without esophagitis Esophageal reflux Other specified hypothyroidism Intractable migraine with aura without status migrainosus Migraine with aura, with intractable migraine, so stated, without mention of status migrainosus Moderate obstructive sleep apnea Obstructive sleep apnea (adult) (pediatric) Rheumatoid arthritis involving both knees with positive rheumatoid factor (HCC) Status post right knee replacement Raynaud's phenomenon without gangrene Iron deficiency anemia, unspecified iron deficiency anemia type Intestinal malabsorption, unspecified type Pre-operative examination- Primary Preoperative examination, unspecified Rheumatoid arthritis involving both knees with positive rheumatoid factor (HCC) Raynaud's phenomenon without gangrene Moderate obstructive sleep apnea Obstructive sleep apnea (adult) (pediatric) Iron deficiency anemia, unspecified iron deficiency anemia type Other specified hypothyroidism Gastroesophageal reflux disease without esophagitis Esophageal reflux Exercise-induced asthma Exercise induced bronchospasm Awareness of heartbeats Palpitations Status post right knee replacement Anemia, unspecified type Rheumatoid arthritis involving multiple sites with positive rheumatoid factor (HCC)- 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 Encounter for long-term (current) use of other medications Synovitis of hand Other tenosynovitis of hand and wrist [facility] Pre-operative examination- Primary Preoperative examination, unspecified Intractable migraine with aura without status migrainosus Migraine with aura, with intractable migraine, so stated, without mention of status migrainosus Palpitations Moderate obstructive sleep apnea Obstructive sleep apnea (adult) (pediatric) Anemia, unspecified type Rheumatoid arthritis involving both knees with positive rheumatoid factor (HCC) Exercise-induced asthma Exercise induced bronchospasm Iron deficiency anemia, unspecified iron deficiency anemia type Intestinal malabsorption, unspecified type Pre-operative examination- Primary Preoperative examination, unspecified Primary osteoarthritis of right hip Primary localized osteoarthrosis, pelvic region and thigh Anemia, unspecified type Exercise-induced asthma Exercise induced bronchospasm Gastroesophageal reflux disease without esophagitis Esophageal reflux Other specified hypothyroidism Intractable migraine with aura without status migrainosus Migraine with aura, with intractable migraine, so stated, without mention of status migrainosus Moderate obstructive sleep apnea Obstructive sleep apnea (adult) (pediatric) Rheumatoid arthritis involving both knees with positive rheumatoid factor (HCC) Status post right knee replacement Raynaud's phenomenon without gangrene Iron deficiency anemia, unspecified iron deficiency anemia type Intestinal malabsorption, unspecified type Pre-operative examination- Primary Preoperative examination, unspecified Rheumatoid arthritis involving both knees with positive rheumatoid factor (HCC) Raynaud's phenomenon without gangrene Moderate obstructive sleep apnea Obstructive sleep apnea (adult) (pediatric) Iron deficiency anemia, unspecified iron deficiency anemia type Other specified hypothyroidism Gastroesophageal reflux disease without esophagitis Esophageal reflux Exercise-induced asthma Exercise induced bronchospasm Awareness of heartbeats Palpitations Status post right knee replacement Anemia, unspecified type Blood in stool Lower abdominal pain Abdominal pain, other specified site [facility]* Diagnosis Pre-operative examination- Primary Preoperative examination, unspecified Intractable migraine with aura without status migrainosus Migraine with aura, with intractable migraine, so stated, without mention of status migrainosus Palpitations Moderate obstructive sleep apnea Obstructive sleep apnea (adult) (pediatric) Anemia, unspecified type Rheumatoid arthritis involving both knees with positive rheumatoid factor (HCC) Exercise-induced asthma Exercise induced bronchospasm Iron deficiency anemia, unspecified iron deficiency anemia type Intestinal malabsorption, unspecified type Pre-operative examination- Primary Preoperative examination, unspecified Primary osteoarthritis of right hip Primary localized osteoarthrosis, pelvic region and thigh Anemia, unspecified type Exercise-induced asthma Exercise induced bronchospasm Gastroesophageal reflux disease without esophagitis Esophageal reflux Other specified hypothyroidism Intractable migraine with aura without status migrainosus Migraine with aura, with intractable migraine, so stated, without mention of status migrainosus Moderate obstructive sleep apnea Obstructive sleep apnea (adult) (pediatric) Rheumatoid arthritis involving both knees with positive rheumatoid factor (HCC) Status post right knee replacement Raynaud's phenomenon without gangrene Iron deficiency anemia, unspecified iron deficiency anemia type Intestinal malabsorption, unspecified type Pre-operative examination- Primary Preoperative examination, unspecified Rheumatoid arthritis involving both knees with positive rheumatoid factor (HCC) Raynaud's phenomenon without gangrene Moderate obstructive sleep apnea Obstructive sleep apnea (adult) (pediatric) Iron deficiency anemia, unspecified iron deficiency anemia type Other specified hypothyroidism Gastroesophageal reflux disease without esophagitis Esophageal reflux Exercise-induced asthma Exercise induced bronchospasm Awareness of heartbeats Palpitations Status post right knee replacement Anemia, unspecified type Primary osteoarthritis of left knee Primary localized osteoarthrosis, lower leg documented in this encounter [facility]* Diagnosis Pre-operative examination- Primary Preoperative examination, unspecified Intractable migraine with aura without status migrainosus Migraine with aura, with intractable migraine, so stated, without mention of status migrainosus Palpitations Moderate obstructive sleep apnea Obstructive sleep apnea (adult) (pediatric) Anemia, unspecified type Rheumatoid arthritis involving both knees with positive rheumatoid factor (HCC) Exercise-induced asthma Exercise induced bronchospasm Iron deficiency anemia, unspecified iron deficiency anemia type Intestinal malabsorption, unspecified type Pre-operative examination- Primary Preoperative examination, unspecified Primary osteoarthritis of right hip Primary localized osteoarthrosis, pelvic region and thigh Anemia, unspecified type Exercise-induced asthma Exercise induced bronchospasm Gastroesophageal reflux disease without esophagitis Esophageal reflux Other specified hypothyroidism Intractable migraine with aura without status migrainosus Migraine with aura, with intractable migraine, so stated, without mention of status migrainosus Moderate obstructive sleep apnea Obstructive sleep apnea (adult) (pediatric) Rheumatoid arthritis involving both knees with positive rheumatoid factor (HCC) Status post right knee replacement Raynaud's phenomenon without gangrene Iron deficiency anemia, unspecified iron deficiency anemia type Intestinal malabsorption, unspecified type Primary osteoarthritis of right hip Primary localized osteoarthrosis, pelvic region and thigh Pre-operative examination- Primary Preoperative examination, unspecified Rheumatoid arthritis involving both knees with positive rheumatoid factor (HCC) Raynaud's phenomenon without gangrene Moderate obstructive sleep apnea Obstructive sleep apnea (adult) (pediatric) Iron deficiency anemia, unspecified iron deficiency anemia type Other specified hypothyroidism Gastroesophageal reflux disease without esophagitis Esophageal reflux Exercise-induced asthma Exercise induced bronchospasm Awareness of heartbeats Palpitations Status post right knee replacement Anemia, unspecified type [facility] Diagnosis Pre-operative examination- Primary Preoperative examination, unspecified Intractable migraine with aura without status migrainosus Migraine with aura, with intractable migraine, so stated, without mention of status migrainosus Palpitations Moderate obstructive sleep apnea Obstructive sleep apnea (adult) (pediatric) Anemia, unspecified type Rheumatoid arthritis involving both knees with positive rheumatoid factor (HCC) Exercise-induced asthma Exercise induced bronchospasm Iron deficiency anemia, unspecified iron deficiency anemia type Intestinal malabsorption, unspecified type Primary osteoarthritis of right knee Primary localized osteoarthrosis, lower leg Pre-operative examination- Primary Preoperative examination, unspecified Primary osteoarthritis of right hip Primary localized osteoarthrosis, pelvic region and thigh Anemia, unspecified type Exercise-induced asthma Exercise induced bronchospasm Gastroesophageal reflux disease without esophagitis Esophageal reflux Other specified hypothyroidism Intractable migraine with aura without status migrainosus Migraine with aura, with intractable migraine, so stated, without mention of status migrainosus Moderate obstructive sleep apnea Obstructive sleep apnea (adult) (pediatric) Rheumatoid arthritis involving both knees with positive rheumatoid factor (HCC) Status post right knee replacement Raynaud's phenomenon without gangrene Iron deficiency anemia, unspecified iron deficiency anemia type Intestinal malabsorption, unspecified type Pre-operative examination- Primary Preoperative examination, unspecified Rheumatoid arthritis involving both knees with positive rheumatoid factor (HCC) Raynaud's phenomenon without gangrene Moderate obstructive sleep apnea Obstructive sleep apnea (adult) (pediatric) Iron deficiency anemia, unspecified iron deficiency anemia type Other specified hypothyroidism Gastroesophageal reflux disease without esophagitis Esophageal reflux Exercise-induced asthma Exercise induced bronchospasm Awareness of heartbeats Palpitations Status post right knee replacement Anemia, unspecified type [facility] Diagnosis Rheumatoid arthritis involving multiple sites with positive rheumatoid factor (HCC)- Primary Long-term use of immunosuppressant medication Encounter for long-term (current) use of other medications [facility] Diagnosis Pre-operative examination- Primary Preoperative examination, unspecified Intractable migraine with aura without status migrainosus Migraine with aura, with intractable migraine, so stated, without mention of status migrainosus Palpitations Moderate obstructive sleep apnea Obstructive sleep apnea (adult) (pediatric) Anemia, unspecified type Rheumatoid arthritis involving both knees with positive rheumatoid factor (HCC) Exercise-induced asthma Exercise induced bronchospasm Iron deficiency anemia, unspecified iron deficiency anemia type Intestinal malabsorption, unspecified type Pre-operative examination- Primary Preoperative examination, unspecified Primary osteoarthritis of right hip Primary localized osteoarthrosis, pelvic region and thigh Anemia, unspecified type Exercise-induced asthma Exercise induced bronchospasm Gastroesophageal reflux disease without esophagitis Esophageal reflux Other specified hypothyroidism Intractable migraine with aura without status migrainosus Migraine with aura, with intractable migraine, so stated, without mention of status migrainosus Moderate obstructive sleep apnea Obstructive sleep apnea (adult) (pediatric) Rheumatoid arthritis involving both knees with positive rheumatoid factor (HCC) Status post right knee replacement Raynaud's phenomenon without gangrene Iron deficiency anemia, unspecified iron deficiency anemia type Intestinal malabsorption, unspecified type Pre-operative examination- Primary Preoperative examination, unspecified Rheumatoid arthritis involving both knees with positive rheumatoid factor (HCC) Raynaud's phenomenon without gangrene Moderate obstructive sleep apnea Obstructive sleep apnea (adult) (pediatric) Iron deficiency anemia, unspecified iron deficiency anemia type Other specified hypothyroidism Gastroesophageal reflux disease without esophagitis Esophageal reflux Exercise-induced asthma Exercise induced bronchospasm Awareness of heartbeats Palpitations Status post right knee replacement Anemia, unspecified type Rheumatoid arthritis involving multiple sites with positive rheumatoid factor (HCC) [facility]* Diagnosis Pre-operative examination- Primary Preoperative examination, unspecified Intractable migraine with aura without status migrainosus Migraine with aura, with intractable migraine, so stated, without mention of status migrainosus Palpitations Moderate obstructive sleep apnea Obstructive sleep apnea (adult) (pediatric) Anemia, unspecified type Rheumatoid arthritis involving both knees with positive rheumatoid factor (HCC) Exercise-induced asthma Exercise induced bronchospasm Iron deficiency anemia, unspecified iron deficiency anemia type Intestinal malabsorption, unspecified type Pre-operative examination- Primary Preoperative examination, unspecified Primary osteoarthritis of right hip Primary localized osteoarthrosis, pelvic region and thigh Anemia, unspecified type Exercise-induced asthma Exercise induced bronchospasm Gastroesophageal reflux disease without esophagitis Esophageal reflux Other specified hypothyroidism Intractable migraine with aura without status migrainosus Migraine with aura, with intractable migraine, so stated, without mention of status migrainosus Moderate obstructive sleep apnea Obstructive sleep apnea (adult) (pediatric) Rheumatoid arthritis involving both knees with positive rheumatoid factor (HCC) Status post right knee replacement Raynaud's phenomenon without gangrene Iron deficiency anemia, unspecified iron deficiency anemia type Intestinal malabsorption, unspecified type Pre-operative examination- Primary Preoperative examination, unspecified Rheumatoid arthritis involving both knees with positive rheumatoid factor (HCC) Raynaud's phenomenon without gangrene Moderate obstructive sleep apnea Obstructive sleep apnea (adult) (pediatric) Iron deficiency anemia, unspecified iron deficiency anemia type Other specified hypothyroidism Gastroesophageal reflux disease without esophagitis Esophageal reflux Exercise-induced asthma Exercise induced bronchospasm Awareness of heartbeats Palpitations Status post right knee replacement Anemia, unspecified type Rheumatoid arthritis involving multiple sites with positive rheumatoid factor (HCC) [facility] Diagnosis Pre-operative examination- Primary Preoperative examination, unspecified Intractable migraine with aura without status migrainosus Migraine with aura, with intractable migraine, so stated, without mention of status migrainosus Palpitations Moderate obstructive sleep apnea Obstructive sleep apnea (adult) (pediatric) Anemia, unspecified type Rheumatoid arthritis involving both knees with positive rheumatoid factor (HCC) Exercise-induced asthma Exercise induced bronchospasm Iron deficiency anemia, unspecified iron deficiency anemia type Intestinal malabsorption, unspecified type Pre-operative examination- Primary Preoperative examination, unspecified Primary osteoarthritis of right hip Primary localized osteoarthrosis, pelvic region and thigh Anemia, unspecified type Exercise-induced asthma Exercise induced bronchospasm Gastroesophageal reflux disease without esophagitis Esophageal reflux Other specified hypothyroidism Intractable migraine with aura without status migrainosus Migraine with aura, with intractable migraine, so stated, without mention of status migrainosus Moderate obstructive sleep apnea Obstructive sleep apnea (adult) (pediatric) Rheumatoid arthritis involving both knees with positive rheumatoid factor (HCC) Status post right knee replacement Raynaud's phenomenon without gangrene Iron deficiency anemia, unspecified iron deficiency anemia type Intestinal malabsorption, unspecified type Pre-operative examination- Primary Preoperative examination, unspecified Rheumatoid arthritis involving both knees with positive rheumatoid factor (HCC) Raynaud's phenomenon without gangrene Moderate obstructive sleep apnea Obstructive sleep apnea (adult) (pediatric) Iron deficiency anemia, unspecified iron deficiency anemia type Other specified hypothyroidism Gastroesophageal reflux disease without esophagitis Esophageal reflux Exercise-induced asthma Exercise induced bronchospasm Awareness of heartbeats Palpitations Status post right knee replacement Anemia, unspecified type Encounter for long-term current use of medication- Primary Other fatigue [facility] Pre-operative examination- Primary Preoperative examination, unspecified Intractable migraine with aura without status migrainosus Migraine with aura, with intractable migraine, so stated, without mention of status migrainosus Palpitations Moderate obstructive sleep apnea Obstructive sleep apnea (adult) (pediatric) Anemia, unspecified type Rheumatoid arthritis involving both knees with positive rheumatoid factor (HCC) Exercise-induced asthma Exercise induced bronchospasm Iron deficiency anemia, unspecified iron deficiency anemia type Intestinal malabsorption, unspecified type Pre-operative examination- Primary Preoperative examination, unspecified Primary osteoarthritis of right hip Primary localized osteoarthrosis, pelvic region and thigh Anemia, unspecified type Exercise-induced asthma Exercise induced bronchospasm Gastroesophageal reflux disease without esophagitis Esophageal reflux Other specified hypothyroidism Intractable migraine with aura without status migrainosus Migraine with aura, with intractable migraine, so stated, without mention of status migrainosus Moderate obstructive sleep apnea Obstructive sleep apnea (adult) (pediatric) Rheumatoid arthritis involving both knees with positive rheumatoid factor (HCC) Status post right knee replacement Raynaud's phenomenon without gangrene Iron deficiency anemia, unspecified iron deficiency anemia type Intestinal malabsorption, unspecified type Pre-operative examination- Primary Preoperative examination, unspecified Rheumatoid arthritis involving both knees with positive rheumatoid factor (HCC) Raynaud's phenomenon without gangrene Moderate obstructive sleep apnea Obstructive sleep apnea (adult) (pediatric) Iron deficiency anemia, unspecified iron deficiency anemia type Other specified hypothyroidism Gastroesophageal reflux disease without esophagitis Esophageal reflux Exercise-induced asthma Exercise induced bronchospasm Awareness of heartbeats Palpitations Status post right knee replacement Anemia, unspecified type Acute pain of left knee- Primary Acute pain Other acute pain [facility]* Diagnosis Pre-operative examination- Primary Preoperative examination, unspecified Intractable migraine with aura without status migrainosus Migraine with aura, with intractable migraine, so stated, without mention of status migrainosus Palpitations Moderate obstructive sleep apnea Obstructive sleep apnea (adult) (pediatric) Anemia, unspecified type Rheumatoid arthritis involving both knees with positive rheumatoid factor (HCC) Exercise-induced asthma Exercise induced bronchospasm Iron deficiency anemia, unspecified iron deficiency anemia type Intestinal malabsorption, unspecified type Pre-operative examination- Primary Preoperative examination, unspecified Primary osteoarthritis of right hip Primary localized osteoarthrosis, pelvic region and thigh Anemia, unspecified type Exercise-induced asthma Exercise induced bronchospasm Gastroesophageal reflux disease without esophagitis Esophageal reflux Other specified hypothyroidism Intractable migraine with aura without status migrainosus Migraine with aura, with intractable migraine, so stated, without mention of status migrainosus Moderate obstructive sleep apnea Obstructive sleep apnea (adult) (pediatric) Rheumatoid arthritis involving both knees with positive rheumatoid factor (HCC) Status post right knee replacement Raynaud's phenomenon without gangrene Iron deficiency anemia, unspecified iron deficiency anemia type Intestinal malabsorption, unspecified type Pre-operative examination- Primary Preoperative examination, unspecified Rheumatoid arthritis involving both knees with positive rheumatoid factor (HCC) Raynaud's phenomenon without gangrene Moderate obstructive sleep apnea Obstructive sleep apnea (adult) (pediatric) Iron deficiency anemia, unspecified iron deficiency anemia type Other specified hypothyroidism Gastroesophageal reflux disease without esophagitis Esophageal reflux Exercise-induced asthma Exercise induced bronchospasm Awareness of heartbeats Palpitations Status post right knee replacement Anemia, unspecified type Acute pain of left knee Acute pain Other acute pain documented in this encounter [facility]* Diagnosis Pre-operative examination- Primary Preoperative examination, unspecified Intractable migraine with aura without status migrainosus Migraine with aura, with intractable migraine, so stated, without mention of status migrainosus Palpitations Moderate obstructive sleep apnea Obstructive sleep apnea (adult) (pediatric) Anemia, unspecified type Rheumatoid arthritis involving both knees with positive rheumatoid factor (HCC) Exercise-induced asthma Exercise induced bronchospasm Iron deficiency anemia, unspecified iron deficiency anemia type Intestinal malabsorption, unspecified type Pre-operative examination- Primary Preoperative examination, unspecified Primary osteoarthritis of right hip Primary localized osteoarthrosis, pelvic region and thigh Anemia, unspecified type Exercise-induced asthma Exercise induced bronchospasm Gastroesophageal reflux disease without esophagitis Esophageal reflux Other specified hypothyroidism Intractable migraine with aura without status migrainosus Migraine with aura, with intractable migraine, so stated, without mention of status migrainosus Moderate obstructive sleep apnea Obstructive sleep apnea (adult) (pediatric) Rheumatoid arthritis involving both knees with positive rheumatoid factor (HCC) Status post right knee replacement Raynaud's phenomenon without gangrene Iron deficiency anemia, unspecified iron deficiency anemia type Intestinal malabsorption, unspecified type Pre-operative examination- Primary Preoperative examination, unspecified Rheumatoid arthritis involving both knees with positive rheumatoid factor (HCC) Raynaud's phenomenon without gangrene Moderate obstructive sleep apnea Obstructive sleep apnea (adult) (pediatric) Iron deficiency anemia, unspecified iron deficiency anemia type Other specified hypothyroidism Gastroesophageal reflux disease without esophagitis Esophageal reflux Exercise-induced asthma Exercise induced bronchospasm Awareness of heartbeats Palpitations Status post right knee replacement Anemia, unspecified type Acute non-recurrent sinusitis, unspecified location- [facility] Pre-operative examination- Primary Preoperative examination, unspecified Intractable migraine with aura without status migrainosus Migraine with aura, with intractable migraine, so stated, without mention of status migrainosus Palpitations Moderate obstructive sleep apnea Obstructive sleep apnea (adult) (pediatric) Anemia, unspecified type Rheumatoid arthritis involving both knees with positive rheumatoid factor (HCC) Exercise-induced asthma Exercise induced bronchospasm Iron deficiency anemia, unspecified iron deficiency anemia type Intestinal malabsorption, unspecified type Pre-operative examination- Primary Preoperative examination, unspecified Primary osteoarthritis of right hip Primary localized osteoarthrosis, pelvic region and thigh Anemia, unspecified type Exercise-induced asthma Exercise induced bronchospasm Gastroesophageal reflux disease without esophagitis Esophageal reflux Other specified hypothyroidism Intractable migraine with aura without status migrainosus Migraine with aura, with intractable migraine, so stated, without mention of status migrainosus Moderate obstructive sleep apnea Obstructive sleep apnea (adult) (pediatric) Rheumatoid arthritis involving both knees with positive rheumatoid factor (HCC) Status post right knee replacement Raynaud's phenomenon without gangrene Iron deficiency anemia, unspecified iron deficiency anemia type Intestinal malabsorption, unspecified type Pre-operative examination- Primary Preoperative examination, unspecified Rheumatoid arthritis involving both knees with positive rheumatoid factor (HCC) Raynaud's phenomenon without gangrene Moderate obstructive sleep apnea Obstructive sleep apnea (adult) (pediatric) Iron deficiency anemia, unspecified iron deficiency anemia type Other specified hypothyroidism Gastroesophageal reflux disease without esophagitis Esophageal reflux Exercise-induced asthma Exercise induced bronchospasm Awareness of heartbeats Palpitations Status post right knee replacement Anemia, unspecified type Rheumatoid arthritis involving multiple sites with positive rheumatoid factor (HCC)- 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 Encounter for long-term (current) use of other medications Chronic pain of left knee Pain in joint, lower leg Rheumatoid arthritis involving multiple sites with positive rheumatoid factor (HCC) [facility] Pre-operative examination- Primary Preoperative examination, unspecified Intractable migraine with aura without status migrainosus Migraine with aura, with intractable migraine, so stated, without mention of status migrainosus Palpitations Moderate obstructive sleep apnea Obstructive sleep apnea (adult) (pediatric) Anemia, unspecified type Rheumatoid arthritis involving both knees with positive rheumatoid factor (HCC) Exercise-induced asthma Exercise induced bronchospasm Iron deficiency anemia, unspecified iron deficiency anemia type Intestinal malabsorption, unspecified type Pre-operative examination- Primary Preoperative examination, unspecified Primary osteoarthritis of right hip Primary localized osteoarthrosis, pelvic region and thigh Anemia, unspecified type Exercise-induced asthma Exercise induced bronchospasm Gastroesophageal reflux disease without esophagitis Esophageal reflux Other specified hypothyroidism Intractable migraine with aura without status migrainosus Migraine with aura, with intractable migraine, so stated, without mention of status migrainosus Moderate obstructive sleep apnea Obstructive sleep apnea (adult) (pediatric) Rheumatoid arthritis involving both knees with positive rheumatoid factor (HCC) Status post right knee replacement Raynaud's phenomenon without gangrene Iron deficiency anemia, unspecified iron deficiency anemia type Intestinal malabsorption, unspecified type Pre-operative examination- Primary Preoperative examination, unspecified Rheumatoid arthritis involving both knees with positive rheumatoid factor (HCC) Raynaud's phenomenon without gangrene Moderate obstructive sleep apnea Obstructive sleep apnea (adult) (pediatric) Iron deficiency anemia, unspecified iron deficiency anemia type Other specified hypothyroidism Gastroesophageal reflux disease without esophagitis Esophageal reflux Exercise-induced asthma Exercise induced bronchospasm Awareness of heartbeats Palpitations Status post right knee replacement Anemia, unspecified type Rheumatoid arthritis involving multiple sites with positive rheumatoid factor (HCC) [facility] Pre-operative examination- Primary Preoperative examination, unspecified Intractable migraine with aura without status migrainosus Migraine with aura, with intractable migraine, so stated, without mention of status migrainosus Palpitations Moderate obstructive sleep apnea Obstructive sleep apnea (adult) (pediatric) Anemia, unspecified type Rheumatoid arthritis involving both knees with positive rheumatoid factor (HCC) Exercise-induced asthma (HCC) Exercise induced bronchospasm Iron deficiency anemia, unspecified iron deficiency anemia type Intestinal malabsorption, unspecified type (HCC) Pre-operative examination- Primary Preoperative examination, unspecified Primary osteoarthritis of right hip Primary localized osteoarthrosis, pelvic region and thigh Anemia, unspecified type Exercise-induced asthma (HCC) Exercise induced bronchospasm Gastroesophageal reflux disease without esophagitis Esophageal reflux Other specified hypothyroidism Intractable migraine with aura without status migrainosus Migraine with aura, with intractable migraine, so stated, without mention of status migrainosus Moderate obstructive sleep apnea Obstructive sleep apnea (adult) (pediatric) Rheumatoid arthritis involving both knees with positive rheumatoid factor (HCC) Status post right knee replacement Raynaud's phenomenon without gangrene Iron deficiency anemia, unspecified iron deficiency anemia type Intestinal malabsorption, unspecified type (HCC) Pre-operative examination- Primary Preoperative examination, unspecified Rheumatoid arthritis involving both knees with positive rheumatoid factor (HCC) Raynaud's phenomenon without gangrene Moderate obstructive sleep apnea Obstructive sleep apnea (adult) (pediatric) Iron deficiency anemia, unspecified iron deficiency anemia type Other specified hypothyroidism Gastroesophageal reflux disease without esophagitis Esophageal reflux Exercise-induced asthma (HCC) Exercise induced bronchospasm Awareness of heartbeats Palpitations Status post right knee replacement Anemia, unspecified type Encounter for screening mammogram for breast cancer documented in this encounter [facility] Discharge instructions No data available for this section [facility] Patient's home Plan of care note* Visit Details 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 Discipline -Physical Therapy Problems Problem Description Start Date Status Goals Interve ntions Medication Education Disciplines: Skilled Services 06/20/2022 Active 1 goal linked to scheduled/document ed intervention 1 goal intervention scheduled/document ed in this visit Physician Specific Parameters Disciplines: Skilled Services 06/20/2022 Active 1 goal linked to scheduled/document ed intervention 1 goal intervention scheduled/document ed in this visit Risk for Falls Disciplines: Skilled Services 06/20/2022 Active 1 goal linked to scheduled/document ed intervention 1 goal intervention scheduled/document ed in this visit Pain Disciplines: Skilled Services 06/20/2022 Active 1 goal linked to scheduled/document ed intervention 1 goal intervention scheduled/document ed in this visit Discharge Disciplines: Skilled Services 06/20/2022 Active 1 goal linked to scheduled/document ed intervention 1 goal intervention scheduled/document ed in this visit PT Impaired muscle performance and/or ROM Disciplines: PT 06/20/2022 Active 1 goal linked to scheduled/document ed intervention 1 goal intervention scheduled/document ed in this visit PT Impaired mobility Disciplines: PT 06/20/2022 Active 2 goals linked to scheduled/document ed interventions 2 goal interventions scheduled/document ed in this visit PT Impaired gait Disciplines: PT 06/20/2022 Active 1 goal linked to scheduled/document ed intervention 1 goal intervention scheduled/document ed in this visit PT Orthopedic Condition Disciplines: PT 06/20/2022 Active 1 goal linked to scheduled/document ed intervention 3 goal interventions scheduled/document ed in this visit PT Learning Assessment Disciplines: PT 06/20/2022 Active 1 goal linked to scheduled/document ed intervention 1 goal intervention scheduled/document ed in this visit PT Pulmonary Disease Disciplines: PT 06/20/2022 Active 1 goal linked to scheduled/document ed intervention 1 goal intervention scheduled/document ed in this visit Goals Goal Associated Problem Outcome Goal Met? Visit Notes Patient/caregiver will demonstrate ability to obtain, store, identify and administer ordered medications, keep accurate medication list in home, and adhere to medication schedule Description: Patient/caregiver will demonstrate ability to obtain, store, identify and administer ordered medications, keep accurate medication list in home, and adhere to medication schedule by 08/18/22. Medication Education No Patient to maintain parameters within physician-specified ranges throughout certification period Physician Specific Parameters No Manage Risk for falls Description: Patient/caregiver will verbalize knowledge of individualized fall prevention strategies by 08/18/22. Risk for Falls No Manage Pain Description: Patient/caregiver will verbalize knowledge and understanding of appropriate techniques to control pain, including pain medication and non-pharmacological techniques. Patient will verbalize or demonstrate an acceptable level of pain as evidenced by a pain score of 2/10 and improvement in ability to perform activities of daily living to be achieved by08/18/22. Pain No Manage discharge planning Description: Patient/caregiver will verbalize understanding of ongoing discharge plan provided related to disease management, arrangements for outpatient and/or community services, obtaining medications, supplies, and DME, as needed throughout certification period. Discharge No Improved Muscle Performance and/or ROM Description: LTG: Patient will demonstrate improved muscle performance to meet functional goals as evidenced by ability to tolerate continuous 7+ minutes standing dynamic activity, to be achieved by 07/13/22. LTG: Patient and/or caregiver will verbalize/demonstrate independence with home exercise program, to improve functional mobility, to be achieved by 07/13/22. PT Impaired muscle performance and/or ROM No Improved Transfers Description: STG: Patient will demonstrate safe transfers to/from bed, chair and household surfaces independently, to be achieved by 07/06/22. LTG: Patient will demonstrate safe transfers to/from car independently, to be achieved by 07/13/22. PT Impaired mobility No Improved Bed Mobility Description: STG: Patient will demonstrate improved bed mobility and supine <> sit independently to be achieved by 07/06/22. PT Impaired mobility No Improved Gait Description: STG: Patient will demonstrate improved gait ability as evidenced by ambulation 100 feet with front wheeled walker with supervision, in order to navigate household environments, to be achieved by 06/29/22. LTG: Patient will demonstrate improved gait ability as evidenced by ambulation >150 feet with single point cane independently, to return to safe household and community ambulation, in order to safely perform household and community mobility, to be achieved by 07/13/22. PT Impaired gait No Manage Orthopedic Condition Description: Improve patient and/or caregiver understanding of post surgical and/or non-surgical orthopedic intervention management as evidenced by patient and/or caregiver able to verbalize, demonstrate, and teach back instruction, to be achieved by 07/13/22. PT Orthopedic Condition No Demonstrate understanding of education Description: Patient and/or caregiver will understand educational instruction to be achieved by 07/13/22. PT Learning Assessment No Manage Secondary Pulmonary Disease Description: Improve patient and/or caregiver understanding of secondary pulmonary disease management as evidenced by patient and/or caregiver able to verbalize, demonstrate, and teach back instruction, to be achieved by 07/13/22. PT Pulmonary Disease No Interventions Intervention Associated Problem/Goal Status Variance Visit Notes Medication Education Description: Evaluate/instruct patient/caregiver on obtaining, storing, identifying and administering ordered medications as well as keeping accurate medication list in the home and adhereing to medication schedule Problem:Medication Education Goal:Patient/caregive r will demonstrate ability to obtain, store, identify and administer ordered medications, keep accurate medication list in home, and adhere to medication schedule Completed Patient and Caregiver instructed on importance of keeping accurate medication list in home and adhering to medication schedule. SPO2 Description: Notify Dr. Ambriz if pulse ox is <92% at rest. Problem:Physician Specific Parameters Goal:Patient to maintain parameters within physician-specified ranges throughout certification period Completed Instruct on individual fall risk factors and strategies to prevent falls and injuries caused by falls. Problem:Risk for Falls Goal:Manage Risk for falls Completed PT: Patient instructed on Managing Impaired Functional Mobility: Use assistive device(s): front wheeled walker Instruct on pain and instruct on strategies to control pain Problem:Pain Goal:Manage Pain Completed patient and caregiver instructed on techniques to control pain including Pharmacological measures and Non-Pharmacological measures; positioning/elevation and use of thermal modalities, apply ice to affected area for the following prescribed frequency: several times/day. Instruct on ongoing discharge plan Problem:Discharge Goal:Manage discharge planning Completed Ongoing Discharge plan: Discharge plan discussed with patient including frequency and duration for home PT and plan for transition to: live independently at home without ongoing services. Physical Therapy Therapeutic Exercises Problem:PT Impaired muscle performance and/or ROM Goal:Improved Muscle Performance and/or ROM Completed patient instructed on strengthening exercises including ankle pumps, quad and glut sets, hip abd and adduction, saq and heel slides x's 10 each with verbal cues for correct form . patient instructed to perform home exercise program twice a day which included above exercises. Physical Therapy Transfer Training Problem:PT Impaired mobility Goal:Improved Transfers Completed Transfer training and instruction to patient on safe transfers to and from bed with moderate assist and verbal cues for correct technique. Recommended the following adaptive equipment/durable medical equipment: gait/transfer belt. Physical Therapy Bed Mobility Training Problem:PT Impaired mobility Goal:Improved Bed Mobility Completed Bed mobility training and instruction to patient and caregiver, including supine<>sit with moderate assist and verbal and visual cues for correct technique. Recommended the following adaptive equipment/durable medical equipment: gait belt. Physical Therapy Gait Training Problem:PT Impaired gait Goal:Improved Gait Completed Gait training and instruction to patient on safe ambulation with front wheeled walker for 2x's40 feet with stand by assist, with verbal cues for corrections of gait deviations including increased step length. Instruct on orthopedic precautions and weight bearing restrictions Description: Orthopedic precautions including right posterior hip: no hip flexion > 90 degrees, no hip abduction, no adduction, no internal rotation of involved extermity and no pivoting on fixed foot. Weight bearing restrictions include: WBAT of involved extremity. Problem:PT Orthopedic Condition Goal:Manage Orthopedic Condition Completed patient and caregiver instructed on orthopedic precautions. Instruct on management of edema Problem:PT Orthopedic Condition Goal:Manage Orthopedic Condition Completed Instruct patient on management of edema including elevation of RLE above the level of the heart and ice. Instruct on self-management of post surgical and/or non-surgical orthopedic intervention Problem:PT Orthopedic Condition Goal:Manage Orthopedic Condition Completed patient and caregiver instructed on signs and symptoms of infection, signs and symptoms of DVT/PE, instructed on when to call provider and instructed on when to call 911. Instruct and educate on knowledge deficits Problem:PT Learning Assessment Goal:Demonstrate understanding of education Completed patient verbalize and/or demonstrate understanding of physical therapy education including surgical precautions and home exercise program. Education methods include: verbal cues. Further education required to improve knowledge and compliance with home exercise program. Instruct on signs, symptoms, and management of secondary pulmonary disease Problem:PT Pulmonary Disease Goal:Manage Secondary Pulmonary Disease Completed patient instructed on instructed on when to call provider. [facility] Visit Details Visit Type -PT SOC Discipline -Physical Therapy Problems Problem Description Start Date Status Goals Interve ntions Medication Education Disciplines: Skilled Services 06/20/2022 Active 1 goal linked to scheduled/document ed intervention 1 goal intervention scheduled/document ed in this visit Physician Specific Parameters Disciplines: Skilled Services 06/20/2022 Active 1 goal linked to scheduled/document ed intervention 1 goal intervention scheduled/document ed in this visit Risk for Falls Disciplines: Skilled Services 06/20/2022 Active 1 goal linked to scheduled/document ed intervention 1 goal intervention scheduled/document ed in this visit Pain Disciplines: Skilled Services 06/20/2022 Active 1 goal linked to scheduled/document ed intervention 1 goal intervention scheduled/document ed in this visit High Risk Medications Disciplines: Skilled Services 06/20/2022 Active 1 goal linked to scheduled/document ed intervention 1 goal intervention scheduled/document ed in this visit Discharge Disciplines: Skilled Services 06/20/2022 Active 1 goal linked to scheduled/document ed intervention 1 goal intervention scheduled/document ed in this visit Advance Directives Disciplines: Skilled Services 06/20/2022 Resolved on 06/20/2022 1 goal linked to scheduled/document ed intervention 1 goal intervention scheduled/document ed in this visit PT Impaired muscle performance and/or ROM Disciplines: PT 06/20/2022 Active 1 goal linked to scheduled/document ed intervention 1 goal intervention scheduled/document ed in this visit PT Impaired mobility Disciplines: PT 06/20/2022 Active 2 goals linked to scheduled/document ed interventions 2 goal interventions scheduled/document ed in this visit PT Impaired gait Disciplines: PT 06/20/2022 Active 2 goals linked to scheduled/document ed interventions 2 goal interventions scheduled/document ed in this visit PT Impaired balance Disciplines: PT 06/20/2022 Active 1 goal linked to scheduled/document ed intervention 1 goal intervention scheduled/document ed in this visit PT Orthopedic Condition Disciplines: PT 06/20/2022 Active 1 goal linked to scheduled/document ed intervention 3 goal interventions scheduled/document ed in this visit PT Learning Assessment Disciplines: PT 06/20/2022 Active 1 goal linked to scheduled/document ed intervention 1 goal intervention scheduled/document ed in this visit PT Pulmonary Disease Disciplines: PT 06/20/2022 Active 1 goal linked to scheduled/document ed intervention 1 goal intervention scheduled/document ed in this visit Sepsis Disciplines: Skilled Services 06/20/2022 Active 1 goal linked to scheduled/document ed intervention 1 goal intervention scheduled/document ed in this visit Goals Goal Associated Problem Outcome Goal Met? Visit Notes Patient/caregiver will demonstrate ability to obtain, store, identify and administer ordered medications, keep accurate medication list in home, and adhere to medication schedule Description: Patient/caregiver will demonstrate ability to obtain, store, identify and administer ordered medications, keep accurate medication list in home, and adhere to medication schedule by 08/18/22. Medication Education No Patient to maintain parameters within physician-specified ranges throughout certification period Physician Specific Parameters No Manage Risk for falls Description: Patient/caregiver will verbalize knowledge of individualized fall prevention strategies by 08/18/22. Risk for Falls No Manage Pain Description: Patient/caregiver will verbalize knowledge and understanding of appropriate techniques to control pain, including pain medication and non-pharmacological techniques. Patient will verbalize or demonstrate an acceptable level of pain as evidenced by a pain score of 2/10 and improvement in ability to perform activities of daily living to be achieved by08/18/22. Pain No Patient/caregiver will teach back high risk medication side effect and precaution education High Risk Medications No Manage discharge planning Description: Patient/caregiver will verbalize understanding of ongoing discharge plan provided related to disease management, arrangements for outpatient and/or community services, obtaining medications, supplies, and DME, as needed throughout certification period. Discharge No Patient/caregiver will make healthcare providers aware of and any changes to Advance Directives throughout certification period Advance Directives Completed Yes Improved Muscle Performance and/or ROM Description: LTG: Patient will demonstrate improved muscle performance to meet functional goals as evidenced by ability to tolerate continuous 7+ minutes standing dynamic activity, to be achieved by 07/13/22. LTG: Patient and/or caregiver will verbalize/demonstrate independence with home exercise program, to improve functional mobility, to be achieved by 07/13/22. PT Impaired muscle performance and/or ROM No Improved Transfers Description: STG: Patient will demonstrate safe transfers to/from bed, chair and household surfaces independently, to be achieved by 07/06/22. LTG: Patient will demonstrate safe transfers to/from car independently, to be achieved by 07/13/22. PT Impaired mobility No Improved Bed Mobility Description: STG: Patient will demonstrate improved bed mobility and supine <> sit independently to be achieved by 07/06/22. PT Impaired mobility No Improved Stair Climbing Description: STG:: Patient will demonstrate improved stair negotiation as evidenced by ascend/descend 3 exit steps with device with supervision, to be achieved by 07/06/22. LTG: Patient will demonstrate improved stair negotiation as evidenced by ascend/descend 3 exit and basement full flight steps with device independently, to safely access all areas of the home, access community and exit home, to be achieved by 07/13/22. PT Impaired gait No Improved Gait Description: STG: Patient will demonstrate improved gait ability as evidenced by ambulation 100 feet with front wheeled walker with supervision, in order to navigate household environments, to be achieved by 06/29/22. LTG: Patient will demonstrate improved gait ability as evidenced by ambulation >150 feet with single point cane independently, to return to safe household and community ambulation, in order to safely perform household and community mobility, to be achieved by 07/13/22. PT Impaired gait No Improved Balance Description: LTG: Patient will demonstrate improved standing balance to meet functional goals as evidenced by TUG score of 14 seconds or less to be achieved by 07/13/22. PT Impaired balance No Manage Orthopedic Condition Description: Improve patient and/or caregiver understanding of post surgical and/or non-surgical orthopedic intervention management as evidenced by patient and/or caregiver able to verbalize, demonstrate, and teach back instruction, to be achieved by 07/13/22. PT Orthopedic Condition No Demonstrate understanding of education Description: Patient and/or caregiver will understand educational instruction to be achieved by 07/13/22. PT Learning Assessment No Manage Secondary Pulmonary Disease Description: Improve patient and/or caregiver understanding of secondary pulmonary disease management as evidenced by patient and/or caregiver able to verbalize, demonstrate, and teach back instruction, to be achieved by 07/13/22. PT Pulmonary Disease No Patient/caregiver will be able to identify and report symptoms of sepsis Description: Patient/caregiver will be able to identify signs/symptoms of sepsis infection and will verbalize actions to take if suspected by 07/13/22. Sepsis No Interventions Intervention Associated Problem/Goal Status Variance Visit Notes Medication Education Description: Evaluate/instruct patient/caregiver on obtaining, storing, identifying and administering ordered medications as well as keeping accurate medication list in the home and adhereing to medication schedule Problem:Medication Education Goal:Patient/caregi ariadne will demonstrate ability to obtain, store, identify and administer ordered medications, keep accurate medication list in home, and adhere to medication schedule Completed Patient instructed on importance of keeping accurate medication list in home, adhering to medication schedule, proper storage of medications, Medication, route, dose, frequency, purpose, and side effects of opiod medications and how to order refills. SPO2 Description: Notify Dr. Ambriz if pulse ox is <92% at rest. Problem:Physician Specific Parameters Goal:Patient to maintain parameters within physician-specified ranges throughout certification period Completed Instruct on individual fall risk factors and strategies to prevent falls and injuries caused by falls. Problem:Risk for Falls Goal:Manage Risk for falls Completed PT: Patient instructed on Eliminating Environmental Hazards: Keep pathways clear, Keep pets out of pathways, Remove unsafe rugs, Move furniture from pathways, Keep rooms and walkways well lit, Wear supportive shoes or non-skid socks and Keep frequently used items within reach Managing Impaired Functional Mobility: Use assistive device(s): bed rail and front wheeled walker and Caregiver to provide assist with: Steps, Transfers and ADL/IADLs Managing Pain Instruct on pain and instruct on strategies to control pain Problem:Pain Goal:Manage Pain Completed patient instructed on techniques to control pain including Pharmacological measures and Non-Pharmacological measures; rest, positioning/elevatio n, mobility/therapeutic exercise, distraction, breathing/relaxation , use of DME/assistive devices and use of thermal modalities, apply ice to affected area for the following prescribed frequency: cold pack to be applied indirectly over area x 15-20 minutes; off for at least 20 minutes to be repeated as needed for pain . Opioids- Instruct on high risk medication Problem:High Risk Medications Goal:Patient/caregi ariadne will teach back high risk medication side effect and precaution education Completed patient instructed on the following: Possible side effects of opioid medication including sedation, decreased rate of breathing, and constipation. Instructed on reporting over sedation to prescribing physician, practice deep breathing techniques every hour while awake, and prevention of constipation by increasing water and fiber intake, increase activity as tolerated, and use stool softener as prescribed. Only take opioids as prescribed, do not share your medications, and take proper precautions in storing and properly disposing of opioids once no longer needed. Follow providers guidelines for driving and weaning from prescribed opioid. Instruct on ongoing discharge plan Problem:Discharge Goal:Manage discharge planning Completed Ongoing Discharge plan: Discharge plan discussed with patient including frequency and duration for home PT and plan for transition to: recommend outpatient potentially pending progress, pt currently denies need and wishes to DC to HEP but is aware of availability of outpatient. . Determine patient's Advance Directive Status Description: Patient does have advance directives. Patient's Advance Directives determined to be available in Home Healthcare DPOA and Living Will. Problem:Advance Directives Goal:Patient/caregi ariadne will make healthcare providers aware of and any changes to Advance Directives throughout certification period Completed Discussed Advance Directives with Patient and/or Caregiver. Referred patient to Home Care handbook for further information on Healthcare DPOA & Living Will. Physical Therapy Therapeutic Exercises Problem:PT Impaired muscle performance and/or ROM Goal:Improved Muscle Performance and/or ROM Completed Developed, implemented, and instructed patient on strengthening exercises: post THR anti-embolic and mobility exercises: supine ankle pumps, glut sets, quad sets, SAQ and heel slides x 10 reps as tolerated and as able to perform correctly. Cues to perform with control and to maintain neutral LE alignment avoiding IR. Recommend pt ambulate every 1-2 hours when awake with FWW as tolerated and perform HEP 3x/day. Physical Therapy Transfer Training Problem:PT Impaired mobility Goal:Improved Transfers Completed Transfer training and instruction to patient on safe transfers to and from bed, chair and toilet with contact guard assist and verbal, tactile and visual cues for proper hand/foot placement; maintaining midline postural alignment, use of UE's to assist with eccentric control and maintaining symmetrical weight bearing as tolerated Physical Therapy Bed Mobility Training Problem:PT Impaired mobility Goal:Improved Bed Mobility Completed Bed mobility training and instruction to patient, including supine<>sit with minimal assist and moderate assist and verbal, tactile and visual cues for task segmentation including scooting as far as able onto bed before initiating sit to supine; maintaining neutral LE alignment, and assistance bringing LE into/out of bed. Recommend bed rails; pt states adjustable bed is arriving Friday. Physical Therapy Stair Training Problem:PT Impaired gait Goal:Improved Stair Climbing Patient unwilling pt declined due to fatigue/pain Physical Therapy Gait Training Problem:PT Impaired gait Goal:Improved Gait Completed Gait training and instruction to patient on safe ambulation with front wheeled walker for 50 feet with contact guard assist, with verbal, tactile and visual cues for corrections of gait deviations including step-to gait pattern with foot flat at weight acceptance, slow marichuy, head down frequently, antalgic RLE gait with decreased weight shift/acceptance RLE. Physical Therapy Balance Training Problem:PT Impaired balance Goal:Improved Balance Completed Developed, implemented, and instructed patient on standing balance exercises including Timed Up and Go Test (TUG) Score/Time: 31.2 Walking Device Required: FWW Modifications: arms of chair Instructions to the patient: When I say 'go' I want you to stand up and walk to the line, turn and then walk back to the chair and sit down again. Walk at your normal pace. Older adults (age 65+) who took 13.5 seconds or longer to perform the TUG were classified as fallers with an overall correct prediction rate of 90% Scoring Ranges (HHQI) <10 Seconds = High Mobility 10-19 Seconds = Typical Mobility 20-29 Seconds = Slower Mobility 30+ Seconds = Diminished Mobility . Instruct on orthopedic precautions and weight bearing restrictions Description: Orthopedic precautions including right posterior hip: no hip flexion > 90 degrees, no hip abduction, no adduction, no internal rotation of involved extermity and no pivoting on fixed foot. Weight bearing restrictions include: WBAT of involved extremity. Problem:PT Orthopedic Condition Goal:Manage Orthopedic Condition Completed patient instructed on orthopedic precautions and weight bearing restrictions. Instruct on management of edema Problem:PT Orthopedic Condition Goal:Manage Orthopedic Condition Completed Instruct patient on management of edema including elevation of RLE above the level of the heart, compression stockings, ice and benefits of activity. Instruct on self-management of post surgical and/or non-surgical orthopedic intervention Problem:PT Orthopedic Condition Goal:Manage Orthopedic Condition Completed patient instructed on managagement of orthopedic condition, measures to avoid skin breakdown, staying well hydrated, eating foods with high protein, signs and symptoms of infection, signs and symptoms of DVT/PE, follow provider guidance for showering , instructed on when to call provider and instructed on when to call 911. Instruct and educate on knowledge deficits Problem:PT Learning Assessment Goal:Demonstrate understanding of education Completed patient verbalize and/or demonstrate understanding of physical therapy education including pulmonary disease management, orthopedic condition management, surgical precautions, pain management, nutrition, fall prevention strategies, home safety, functional activity and home exercise program. Education methods include: verbal cues, tactile cues, written instructions, visual cues and teach back. Further education required to improve knowledge and compliance with pulmonary disease management, orthopedic condition management, surgical precautions, pain management, nutrition, fall prevention strategies, home safety, functional activity and home exercise program. Instruct on signs, symptoms, and management of secondary pulmonary disease Problem:PT Pulmonary Disease Goal:Manage Secondary Pulmonary Disease Completed patient instructed on diagnosis of asthma, signs and symptoms of pulmonary exacerbation, breathing management, avoiding irritants, anxiety management including: relaxation techniques, importance of sleep and stress reduction and instructed on when to call provider. Risk of Sepsis Description: Patient is at risk for sepsis. Monitor closely for s/s of sepsis. 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 Problems Problem Description Start Date Status Goals Interve ntions Medication Education Disciplines: Skilled Services 06/20/2022 Active 1 goal linked to scheduled/document ed intervention 1 goal intervention scheduled/document ed in this visit Physician Specific Parameters Disciplines: Skilled Services 06/20/2022 Active 1 goal linked to scheduled/document ed intervention 1 goal intervention scheduled/document ed in this visit Risk for Falls Disciplines: Skilled Services 06/20/2022 Active 1 goal linked to scheduled/document ed intervention 1 goal intervention scheduled/document ed in this visit Pain Disciplines: Skilled Services 06/20/2022 Active 1 goal linked to scheduled/document ed intervention 1 goal intervention scheduled/document ed in this visit Discharge Disciplines: Skilled Services 06/20/2022 Active 1 goal linked to scheduled/document ed intervention 1 goal intervention scheduled/document ed in this visit PT Impaired muscle performance and/or ROM Disciplines: PT 06/20/2022 Active 1 goal linked to scheduled/document ed intervention 1 goal intervention scheduled/document ed in this visit PT Impaired mobility Disciplines: PT 06/20/2022 Active 1 goal linked to scheduled/document ed intervention 1 goal intervention scheduled/document ed in this visit PT Impaired gait Disciplines: PT 06/20/2022 Active 1 goal linked to scheduled/document ed intervention 1 goal intervention scheduled/document ed in this visit PT Orthopedic Condition Disciplines: PT 06/20/2022 Active 1 goal linked to scheduled/document ed intervention 3 goal interventions scheduled/document ed in this visit PT Learning Assessment Disciplines: PT 06/20/2022 Active 1 goal linked to scheduled/document ed intervention 1 goal intervention scheduled/document ed in this visit PT Pulmonary Disease Disciplines: PT 06/20/2022 Active 1 goal linked to scheduled/document ed intervention 1 goal intervention scheduled/document ed in this visit Sepsis Disciplines: Skilled Services 06/20/2022 Active 1 goal linked to scheduled/document ed intervention 1 goal intervention scheduled/document ed in this visit Goals Goal Associated Problem Outcome Goal Met? Visit Notes Patient/caregiver will demonstrate ability to obtain, store, identify and administer ordered medications, keep accurate medication list in home, and adhere to medication schedule Description: Patient/caregiver will demonstrate ability to obtain, store, identify and administer ordered medications, keep accurate medication list in home, and adhere to medication schedule by 08/18/22. Medication Education No Patient to maintain parameters within physician-specified ranges throughout certification period Physician Specific Parameters No Manage Risk for falls Description: Patient/caregiver will verbalize knowledge of individualized fall prevention strategies by 08/18/22. Risk for Falls No Manage Pain Description: Patient/caregiver will verbalize knowledge and understanding of appropriate techniques to control pain, including pain medication and non-pharmacological techniques. Patient will verbalize or demonstrate an acceptable level of pain as evidenced by a pain score of 2/10 and improvement in ability to perform activities of daily living to be achieved by08/18/22. Pain No Manage discharge planning Description: Patient/caregiver will verbalize understanding of ongoing discharge plan provided related to disease management, arrangements for outpatient and/or community services, obtaining medications, supplies, and DME, as needed throughout certification period. Discharge No Improved Muscle Performance and/or ROM Description: LTG: Patient will demonstrate improved muscle performance to meet functional goals as evidenced by ability to tolerate continuous 7+ minutes standing dynamic activity, to be achieved by 07/13/22. LTG: Patient and/or caregiver will verbalize/demonstrate independence with home exercise program, to improve functional mobility, to be achieved by 07/13/22. PT Impaired muscle performance and/or ROM No Improved Bed Mobility Description: STG: Patient will demonstrate improved bed mobility and supine <> sit independently to be achieved by 07/06/22. PT Impaired mobility No Improved Gait Description: STG: Patient will demonstrate improved gait ability as evidenced by ambulation 100 feet with front wheeled walker with supervision, in order to navigate household environments, to be achieved by 06/29/22. LTG: Patient will demonstrate improved gait ability as evidenced by ambulation >150 feet with single point cane independently, to return to safe household and community ambulation, in order to safely perform household and community mobility, to be achieved by 07/13/22. PT Impaired gait No Manage Orthopedic Condition Description: Improve patient and/or caregiver understanding of post surgical and/or non-surgical orthopedic intervention management as evidenced by patient and/or caregiver able to verbalize, demonstrate, and teach back instruction, to be achieved by 07/13/22. PT Orthopedic Condition No Demonstrate understanding of education Description: Patient and/or caregiver will understand educational instruction to be achieved by 07/13/22. PT Learning Assessment No Manage Secondary Pulmonary Disease Description: Improve patient and/or caregiver understanding of secondary pulmonary disease management as evidenced by patient and/or caregiver able to verbalize, demonstrate, and teach back instruction, to be achieved by 07/13/22. PT Pulmonary Disease No Patient/caregiver will be able to identify and report symptoms of sepsis Description: Patient/caregiver will be able to identify signs/symptoms of sepsis infection and will verbalize actions to take if suspected by 10/22/22. Sepsis No Interventions Intervention Associated Problem/Goal Status Variance Visit Notes Medication Education Description: Evaluate/instruct patient/caregiver on obtaining, storing, identifying and administering ordered medications as well as keeping accurate medication list in the home and adhereing to medication schedule Problem:Medication Education Goal:Patient/caregive r will demonstrate ability to obtain, store, identify and administer ordered medications, keep accurate medication list in home, and adhere to medication schedule Completed Patient and Caregiver instructed on importance of keeping accurate medication list in home, adhering to medication schedule and how to order refills. SPO2 Description: Notify Dr. Ambriz if pulse ox is <92% at rest. Problem:Physician Specific Parameters Goal:Patient to maintain parameters within physician-specified ranges throughout certification period Completed Instruct on individual fall risk factors and strategies to prevent falls and injuries caused by falls. Problem:Risk for Falls Goal:Manage Risk for falls Completed PT: Patient and Caregiver instructed on Managing Impaired Functional Mobility: Use assistive device(s): front wheeled walker Instruct on pain and instruct on strategies to control pain Problem:Pain Goal:Manage Pain Completed patient and caregiver instructed on techniques to control pain including Pharmacological measures and Non-Pharmacological measures; positioning/elevation and use of thermal modalities, apply ice to affected area for the following prescribed frequency: several times/day. Instruct on ongoing discharge plan Problem:Discharge Goal:Manage discharge planning Completed Ongoing Discharge plan: Discharge plan discussed with patient and caregiver including frequency and duration for home PT and plan for transition to: live independently at home without ongoing services. Physical Therapy Therapeutic Exercises Problem:PT Impaired muscle performance and/or ROM Goal:Improved Muscle Performance and/or ROM Completed patient and caregiver instructed on strengthening exercises including anklepumps, quad and glut sets, hip abd and adduction, saq and heel slides x's 10 each. with verbal and visual cues for correct form. patient instructed to perform home exercise program twice a day which included anove exercises. Physical Therapy Bed Mobility Training Problem:PT Impaired mobility Goal:Improved Bed Mobility Completed Bed mobility training and instruction to patient and caregiver, including supine<>sit with minimal assist and verbal cues for correct technique using new adjustable bed Physical Therapy Gait Training Problem:PT Impaired gait Goal:Improved Gait Completed Gait training and instruction to patient on safe ambulation with front wheeled walker for 2x's 40 feet with stand by assist, with verbal cues for corrections of gait deviations including increased step length. Instruct on orthopedic precautions and weight bearing restrictions Description: Orthopedic precautions including right posterior hip: no hip flexion > 90 degrees, no hip abduction, no adduction, no internal rotation of involved extermity and no pivoting on fixed foot. Weight bearing restrictions include: WBAT of involved extremity. Problem:PT Orthopedic Condition Goal:Manage Orthopedic Condition Completed patient instructed on orthopedic precautions. Instruct on management of edema Problem:PT Orthopedic Condition Goal:Manage Orthopedic Condition Completed Instruct patient and caregiver on management of edema including elevation of RLE above the level of the heart and ice. Instruct on self-management of post surgical and/or non-surgical orthopedic intervention Problem:PT Orthopedic Condition Goal:Manage Orthopedic Condition Completed patient instructed on signs and symptoms of infection, signs and symptoms of DVT/PE, instructed on when to call provider and instructed on when to call 911. Instruct and educate on knowledge deficits Problem:PT Learning Assessment Goal:Demonstrate understanding of education Completed patient and caregiver verbalize and/or demonstrate understanding of physical therapy education including surgical precautions, pain management and home exercise program. Education methods include: verbal cues and visual cues. Further education required to improve knowledge and compliance with home exercise program. Instruct on signs, symptoms, and management of secondary pulmonary disease Problem:PT Pulmonary Disease Goal:Manage Secondary Pulmonary Disease Completed patient and caregiver instructed on instructed on when to call provider. Risk of Sepsis Description: Patient is at risk for sepsis. Monitor closely for s/s of sepsis. Problem:Sepsis Goal:Patient/caregive r will be able to identify and report symptoms of sepsis [facility] Visit Details Visit Type -OT EVAL Discipline -Occupational Therapy Problems Problem Description Start Date Status Goals Interve ntions Medication Education Disciplines: Skilled Services 06/20/2022 Active 1 goal linked to scheduled/documen trang intervention 1 goal intervention scheduled/document ed in this visit OT Referral Disciplines: Skilled Services 06/20/2022 Resolved on 06/24/2022 1 goal linked to scheduled/documen trang intervention 1 goal intervention scheduled/document ed in this visit Physician Specific Parameters Disciplines: Skilled Services 06/20/2022 Active 1 goal linked to scheduled/documen trang intervention 1 goal intervention scheduled/document ed in this visit Risk for Falls Disciplines: Skilled Services 06/20/2022 Active 1 goal linked to scheduled/documen trang intervention 1 goal intervention scheduled/document ed in this visit Pain Disciplines: Skilled Services 06/20/2022 Active 1 goal linked to scheduled/documen trang intervention 1 goal intervention scheduled/document ed in this visit Discharge Disciplines: Skilled Services 06/20/2022 Active 1 goal linked to scheduled/documen trang intervention 1 goal intervention scheduled/document ed in this visit Sepsis Disciplines: Skilled Services 06/20/2022 Active 1 goal linked to scheduled/documen trang intervention 1 goal intervention scheduled/document ed in this visit OT Learning Assessment Disciplines: OT 06/24/2022 Active 1 goal linked to scheduled/documen trang intervention 1 goal intervention scheduled/document ed in this visit OT ADLs/IADLs Disciplines: OT 06/24/2022 Active 1 goal linked to scheduled/documen trang intervention 1 goal intervention scheduled/document ed in this visit OT Functional Transfers Disciplines: OT 06/24/2022 Active 1 goal linked to scheduled/documen trang intervention 1 goal intervention scheduled/document ed in this visit OT Orthopedic Post Surgical and/or Non Surgical Condition Disciplines: OT 06/24/2022 Active 1 goal linked to scheduled/documen trang intervention 3 goal interventions scheduled/document ed in this visit Goals Goal Associated Problem Outcome Goal Met? Visit Notes Patient/caregiver will demonstrate ability to obtain, store, identify and administer ordered medications, keep accurate medication list in home, and adhere to medication schedule Description: Patient/caregiver will demonstrate ability to obtain, store, identify and administer ordered medications, keep accurate medication list in home, and adhere to medication schedule by 08/18/22. Medication Education No Patient will be referred to additional discipline as needed OT Referral Completed Yes met Patient to maintain parameters within physician-specified ranges throughout certification period Physician Specific Parameters No Manage Risk for falls Description: Patient/caregiver will verbalize knowledge of individualized fall prevention strategies by 08/18/22. Risk for Falls No Manage Pain Description: Patient/caregiver will verbalize knowledge and understanding of appropriate techniques to control pain, including pain medication and non-pharmacological techniques. Patient will verbalize or demonstrate an acceptable level of pain as evidenced by a pain score of 2/10 and improvement in ability to perform activities of daily living to be achieved by08/18/22. Pain No Manage discharge planning Description: Patient/caregiver will verbalize understanding of ongoing discharge plan provided related to disease management, arrangements for outpatient and/or community services, obtaining medications, supplies, and DME, as needed throughout certification period. Discharge No Patient/caregiver will be able to identify and report symptoms of sepsis Description: Patient/caregiver will be able to identify signs/symptoms of sepsis infection and will verbalize actions to take if suspected by 07/13/22. Sepsis No Demonstrate understanding of education Description: Patient and/or caregiver will understand educational instruction to be achieved by 07/06/22. OT Learning Assessment No Improved ADLs/IADLs performance Description: Patient will verbalize understanding of instructions and demonstrate improved performance of grooming, upper body dressing, lower body dressing, bathing and toileting to independence as evidenced by improved Karthik ADL Index score to at least 60/100, to be achieved by 07/06/22. Patient will verbalize understanding of instructions and demonstrate improved performance of light meal prep and homemaking tasks to independence as evidenced by improved Karthik ADL Index score to at least 60/100, to be achieved by 07/06/22. OT ADLs/IADLs No Improved Functional Transfers Description: Patient will demonstrate safe transfers to/from toilet with independent assistance and no cues with use of DME to be achieved by 06/29/22. Patient will demonstrate safe transfers to/from shower/tub with supervision assistance and minimal verbal cues with use of DME to be achieved by 07/06/22. OT Functional Transfers No Manage Orthopedic Condition Description: Improve patient and/or caregiver understanding of post surgical and/or non-surgical orthopedic intervention management as evidenced by patient and/or caregiver able to verbalize, demonstrate, and teach back instruction with a minimum of two strategies. To be achieved by 07/06/22. OT Orthopedic Post Surgical and/or Non Surgical Condition No Interventions Intervention Associated Problem/Goal Status Variance Visit Notes Medication Education Description: Evaluate/instruct patient/caregiver on obtaining, storing, identifying and administering ordered medications as well as keeping accurate medication list in the home and adhereing to medication schedule Problem:Medication Education Goal:Patient/caregiv er will demonstrate ability to obtain, store, identify and administer ordered medications, keep accurate medication list in home, and adhere to medication schedule Completed Patient instructed on importance of keeping accurate medication list in home and adhering to medication schedule. OT evaluation and treatment Description: Evaluate and treat for the assessment of functional deficits and establishment of appropriate interventions and education to address: I/ADL training, functional transfers, DME/adaptive equipment recommendations, safety awareness, energy conservation, home safety and falls prevention recommendations and upper extremity strengthening and home exercise program training. Problem:OT Referral Goal:Patient will be referred to additional discipline as needed Completed SPO2 Description: Notify Dr. Ambriz if pulse ox is <92% at rest. Problem:Physician Specific Parameters Goal:Patient to maintain parameters within physician-specified ranges throughout certification period Completed Instruct on individual fall risk factors and strategies to prevent falls and injuries caused by falls. Problem:Risk for Falls Goal:Manage Risk for falls Completed OT: Patient instructed on Managing Impaired Functional Mobility: Use assistive device(s): front wheeled walker, raised toilet seat and tub bench and Caregiver to provide assist with: Ambulation, Steps, Transfers and ADL/IADLs. Instruct on pain and instruct on strategies to control pain Problem:Pain Goal:Manage Pain Completed patient instructed on techniques to control pain including Pharmacological measures and Non-Pharmacological measures; rest, positioning/elevation, mobility/therapeutic exercise, use of DME/assistive devices and use of thermal modalities, apply ice to affected area. Instruct on ongoing discharge plan Problem:Discharge Goal:Manage discharge planning Completed Ongoing Discharge plan: Discharge plan discussed with patient and caregiver including frequency and duration for home OT, including OT POC of 2w1, 1w1, and plan for transition to: live independently at home without ongoing services. Risk of Sepsis Description: Patient is at risk for sepsis. Monitor closely for s/s of sepsis. Problem:Sepsis Goal:Patient/caregiv er will be able to identify and report symptoms of sepsis Completed Instruct and educate on knowledge deficits Problem:OT Learning Assessment Goal:Demonstrate understanding of education Completed Education methods include: verbal cues and visual cues. Patient/Caregiver require further education to improve knowledge and compliance with fall prevention strategies, orthopedic condition management, pain management, post surgical precautions, home safety, functional adl/iadl activity, functional transfers and discharge planning. ADL/IADLs Training Problem:OT ADLs/IADLs Goal:Improved ADLs/IADLs performance Completed Provided patient with instructions for sock-aid, agricultural chemicals inspector, long handled sponge & dressing stick to help with LB ADL tasks. Provided information on which items to obtain & where to get them. Patient and her will order these today. Transfer Training Problem:OT Functional Transfers Goal:Improved Functional Transfers Completed Instruct patient on safe transfers and proper techniques including positioning & posterior hip precautions, to perform to and from toilet with Supervision and shower/tub with Max assistance and verbal cues for technique & positioning. Current tub transfer bench patient has is too tall & cannot be lowered any further due to design of bench and design of tub. Recommended obtaining flat plastic style tub transfer bench, which can be adjusted better for patient & will therefore be safer for her Patient and her agreeable to obtaining new transfer bench. Also recommended leg theater projectionist to help patient with bed transfers. Instruct on orthopedic precautions and weight bearing restrictions Problem:OT Orthopedic Post Surgical and/or Non Surgical Condition Goal:Manage Orthopedic Condition Completed Instruct patient on orthopedic precautions including Right posterior hip precautions: no hip flexion >90 degrees. Instruct on management of edema Problem:OT Orthopedic Post Surgical and/or Non Surgical Condition Goal:Manage Orthopedic Condition Completed Instruct patient on management of edema including ice. 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 Problems Problem Description Start Date Status Goals Interve ntions Medication Education Disciplines: Skilled Services 06/20/2022 Active 1 goal linked to scheduled/document ed intervention 1 goal intervention scheduled/document ed in this visit Physician Specific Parameters Disciplines: Skilled Services 06/20/2022 Active 1 goal linked to scheduled/document ed intervention 1 goal intervention scheduled/document ed in this visit Risk for Falls Disciplines: Skilled Services 06/20/2022 Active 1 goal linked to scheduled/document ed intervention 1 goal intervention scheduled/document ed in this visit Pain Disciplines: Skilled Services 06/20/2022 Active 1 goal linked to scheduled/document ed intervention 1 goal intervention scheduled/document ed in this visit Discharge Disciplines: Skilled Services 06/20/2022 Active 1 goal linked to scheduled/document ed intervention 1 goal intervention scheduled/document ed in this visit PT Impaired muscle performance and/or ROM Disciplines: PT 06/20/2022 Active 1 goal linked to scheduled/document ed intervention 1 goal intervention scheduled/document ed in this visit PT Impaired gait Disciplines: PT 06/20/2022 Active 1 goal linked to scheduled/document ed intervention 1 goal intervention scheduled/document ed in this visit PT Orthopedic Condition Disciplines: PT 06/20/2022 Active 1 goal linked to scheduled/document ed intervention 4 goal interventions scheduled/document ed in this visit PT Learning Assessment Disciplines: PT 06/20/2022 Active 1 goal linked to scheduled/document ed intervention 1 goal intervention scheduled/document ed in this visit PT Pulmonary Disease Disciplines: PT 06/20/2022 Active 1 goal linked to scheduled/document ed intervention 1 goal intervention scheduled/document ed in this visit Sepsis Disciplines: Skilled Services 06/20/2022 Active 1 goal linked to scheduled/document ed intervention 1 goal intervention scheduled/document ed in this visit Goals Goal Associated Problem Outcome Goal Met? Visit Notes Patient/caregiver will demonstrate ability to obtain, store, identify and administer ordered medications, keep accurate medication list in home, and adhere to medication schedule Description: Patient/caregiver will demonstrate ability to obtain, store, identify and administer ordered medications, keep accurate medication list in home, and adhere to medication schedule by 08/18/22. Medication Education No Patient to maintain parameters within physician-specified ranges throughout certification period Physician Specific Parameters No Manage Risk for falls Description: Patient/caregiver will verbalize knowledge of individualized fall prevention strategies by 08/18/22. Risk for Falls No Manage Pain Description: Patient/caregiver will verbalize knowledge and understanding of appropriate techniques to control pain, including pain medication and non-pharmacological techniques. Patient will verbalize or demonstrate an acceptable level of pain as evidenced by a pain score of 2/10 and improvement in ability to perform activities of daily living to be achieved by08/18/22. Pain No Manage discharge planning Description: Patient/caregiver will verbalize understanding of ongoing discharge plan provided related to disease management, arrangements for outpatient and/or community services, obtaining medications, supplies, and DME, as needed throughout certification period. Discharge No Improved Muscle Performance and/or ROM Description: LTG: Patient will demonstrate improved muscle performance to meet functional goals as evidenced by ability to tolerate continuous 7+ minutes standing dynamic activity, to be achieved by 07/13/22. LTG: Patient and/or caregiver will verbalize/demonstrate independence with home exercise program, to improve functional mobility, to be achieved by 07/13/22. PT Impaired muscle performance and/or ROM No Improved Gait Description: STG: Patient will demonstrate improved gait ability as evidenced by ambulation 100 feet with front wheeled walker with supervision, in order to navigate household environments, to be achieved by 06/29/22. LTG: Patient will demonstrate improved gait ability as evidenced by ambulation >150 feet with single point cane independently, to return to safe household and community ambulation, in order to safely perform household and community mobility, to be achieved by 07/13/22. PT Impaired gait No Manage Orthopedic Condition Description: Improve patient and/or caregiver understanding of post surgical and/or non-surgical orthopedic intervention management as evidenced by patient and/or caregiver able to verbalize, demonstrate, and teach back instruction, to be achieved by 07/13/22. PT Orthopedic Condition No Demonstrate understanding of education Description: Patient and/or caregiver will understand educational instruction to be achieved by 07/13/22. PT Learning Assessment No Manage Secondary Pulmonary Disease Description: Improve patient and/or caregiver understanding of secondary pulmonary disease management as evidenced by patient and/or caregiver able to verbalize, demonstrate, and teach back instruction, to be achieved by 07/13/22. PT Pulmonary Disease No Patient/caregiver will be able to identify and report symptoms of sepsis Description: Patient/caregiver will be able to identify signs/symptoms of sepsis infection and will verbalize actions to take if suspected by 08/18/22 Sepsis No Interventions Intervention Associated Problem/Goal Status Variance Visit Notes Medication Education Description: Evaluate/instruct patient/caregiver on obtaining, storing, identifying and administering ordered medications as well as keeping accurate medication list in the home and adhereing to medication schedule Problem:Medication Education Goal:Patient/caregive r will demonstrate ability to obtain, store, identify and administer ordered medications, keep accurate medication list in home, and adhere to medication schedule Completed Patient and Caregiver instructed on importance of keeping accurate medication list in home. SPO2 Description: Notify Dr. Ambriz if pulse ox is <92% at rest. Problem:Physician Specific Parameters Goal:Patient to maintain parameters within physician-specified ranges throughout certification period Completed Instruct on individual fall risk factors and strategies to prevent falls and injuries caused by falls. Problem:Risk for Falls Goal:Manage Risk for falls Completed PT: Patient and Caregiver instructed on Managing Impaired Functional Mobility: Use assistive device(s): front wheeled walker and Caregiver to provide assist with: Steps Instruct on pain and instruct on strategies to control pain Problem:Pain Goal:Manage Pain Completed patient and caregiver instructed on techniques to control pain including Pharmacological measures and Non-Pharmacological measures; positioning/elevation and use of thermal modalities, apply ice to affected area for the following prescribed frequency: several times/day. Instruct on ongoing discharge plan Problem:Discharge Goal:Manage discharge planning Completed Ongoing Discharge plan: Discharge plan discussed with patient including frequency and duration for home PT and plan for transition to: live independently at home without ongoing services. Physical Therapy Therapeutic Exercises Problem:PT Impaired muscle performance and/or ROM Goal:Improved Muscle Performance and/or ROM Completed patient instructed on strengthening exercises including ankle pumps, quad abdglut sets, hip abd and adduction, saq and heel slides x's 15 each. standing calf rasies and hamstring curl x's 15 each with verbal and visual cues for correct form and increased reps. patient instructed to perform home exercise program twice a day which included above exercises. Physical Therapy Gait Training Problem:PT Impaired gait Goal:Improved Gait Completed Gait training and instruction to patient on safe ambulation with front wheeled walker for 40 and 60 feet with supervision, with verbal cues for corrections of gait deviations including increased step length. Instruct on orthopedic precautions and weight bearing restrictions Description: Orthopedic precautions including right posterior hip: no hip flexion > 90 degrees, no hip abduction, no adduction, no internal rotation of involved extermity and no pivoting on fixed foot. Weight bearing restrictions include: WBAT of involved extremity. Problem:PT Orthopedic Condition Goal:Manage Orthopedic Condition Completed patient instructed on orthopedic precautions. Instruct on management of edema Problem:PT Orthopedic Condition Goal:Manage Orthopedic Condition Completed Instruct patient and caregiver on management of edema including elevation of RLE above the level of the heart and ice. Physical therapy to perform surgical incision/wound management Description: Removal of post-op dressing on 06/25/22 ( POD 7). If no drainage is present, leave open to air; if drainage is present, cover with clean dressing and contact provider and PT manager of case management. Problem:PT Orthopedic Condition Goal:Manage Orthopedic Condition Completed Intervention completed this date. With patients consent, picture obtained and uploaded to chart Instruct on self-management of post surgical and/or non-surgical orthopedic intervention Problem:PT Orthopedic Condition Goal:Manage Orthopedic Condition Completed patient and caregiver instructed on incision care: no lotions/creams or rubbing, signs and symptoms of infection, signs and symptoms of DVT/PE, follow provider guidance for showering , instructed on when to call provider and instructed on when to call 911. Instruct and educate on knowledge deficits Problem:PT Learning Assessment Goal:Demonstrate understanding of education Completed patient and caregiver verbalize and/or demonstrate understanding of physical therapy education including surgical precautions, pain management, integumentary and incision/wound care management and home exercise program. Education methods include: verbal cues. Further education required to improve knowledge and compliance with home exercise program. Instruct on signs, symptoms, and management of secondary pulmonary disease Problem:PT Pulmonary Disease Goal:Manage Secondary Pulmonary Disease Completed patient instructed on instructed on when to call provider. Risk of Sepsis Description: Patient is at risk for sepsis. Monitor closely for s/s of sepsis. Problem:Sepsis Goal:Patient/caregive r will be able to identify and report symptoms of sepsis Completed documented [facility]* Visit Details Visit Type -OT ROUTINE Discipline -Occupational Therapy Problems Problem Description Start Date Status Goals Interve ntions Medication Education Disciplines: Skilled Services 06/20/2022 Active 1 goal linked to scheduled/document ed intervention 1 goal intervention scheduled/documente d in this visit Physician Specific Parameters Disciplines: Skilled Services 06/20/2022 Active 1 goal linked to scheduled/document ed intervention 1 goal intervention scheduled/documente d in this visit Risk for Falls Disciplines: Skilled Services 06/20/2022 Active 1 goal linked to scheduled/document ed intervention 1 goal intervention scheduled/documente d in this visit Pain Disciplines: Skilled Services 06/20/2022 Active 1 goal linked to scheduled/document ed intervention 1 goal intervention scheduled/documente d in this visit Discharge Disciplines: Skilled Services 06/20/2022 Active 1 goal linked to scheduled/document ed intervention 1 goal intervention scheduled/documente d in this visit Sepsis Disciplines: Skilled Services 06/20/2022 Active 1 goal linked to scheduled/document ed intervention 1 goal intervention scheduled/documente d in this visit OT Learning Assessment Disciplines: OT 06/24/2022 Active 1 goal linked to scheduled/document ed intervention 1 goal intervention scheduled/documente d in this visit OT ADLs/IADLs Disciplines: OT 06/24/2022 Active 1 goal linked to scheduled/document ed intervention 1 goal intervention scheduled/documente d in this visit OT Functional Transfers Disciplines: OT 06/24/2022 Active 1 goal linked to scheduled/document ed intervention 1 goal intervention scheduled/documente d in this visit OT Orthopedic Post Surgical and/or Non Surgical Condition Disciplines: OT 06/24/2022 Active 1 goal linked to scheduled/document ed intervention 2 goal interventions scheduled/documente d in this visit Goals Goal Associated Problem Outcome Goal Met? Visit Notes Patient/caregiver will demonstrate ability to obtain, store, identify and administer ordered medications, keep accurate medication list in home, and adhere to medication schedule Description: Patient/caregiver will demonstrate ability to obtain, store, identify and administer ordered medications, keep accurate medication list in home, and adhere to medication schedule by 08/18/22. Medication Education No Patient to maintain parameters within physician-specified ranges throughout certification period Physician Specific Parameters No Manage Risk for falls Description: Patient/caregiver will verbalize knowledge of individualized fall prevention strategies by 08/18/22. Risk for Falls No Manage Pain Description: Patient/caregiver will verbalize knowledge and understanding of appropriate techniques to control pain, including pain medication and non-pharmacological techniques. Patient will verbalize or demonstrate an acceptable level of pain as evidenced by a pain score of 2/10 and improvement in ability to perform activities of daily living to be achieved by08/18/22. Pain No Manage discharge planning Description: Patient/caregiver will verbalize understanding of ongoing discharge plan provided related to disease management, arrangements for outpatient and/or community services, obtaining medications, supplies, and DME, as needed throughout certification period. Discharge No Patient/caregiver will be able to identify and report symptoms of sepsis Description: Patient/caregiver will be able to identify signs/symptoms of sepsis infection and will verbalize actions to take if suspected by 08/18/22 Sepsis No Demonstrate understanding of education Description: Patient and/or caregiver will understand educational instruction to be achieved by 07/06/22. OT Learning Assessment No Improved ADLs/IADLs performance Description: Patient will verbalize understanding of instructions and demonstrate improved performance of grooming, upper body dressing, lower body dressing, bathing and toileting to independence as evidenced by improved Karthik ADL Index score to at least 60/100, to be achieved by 07/06/22. Patient will verbalize understanding of instructions and demonstrate improved performance of light meal prep and homemaking tasks to independence as evidenced by improved Karthik ADL Index score to at least 60/100, to be achieved by 07/06/22. OT ADLs/IADLs No Improved Functional Transfers Description: Patient will demonstrate safe transfers to/from toilet with independent assistance and no cues with use of DME to be achieved by 06/29/22. Patient will demonstrate safe transfers to/from shower/tub with supervision assistance and minimal verbal cues with use of DME to be achieved by 07/06/22. OT Functional Transfers No Manage Orthopedic Condition Description: Improve patient and/or caregiver understanding of post surgical and/or non-surgical orthopedic intervention management as evidenced by patient and/or caregiver able to verbalize, demonstrate, and teach back instruction with a minimum of two strategies. To be achieved by 07/06/22. OT Orthopedic Post Surgical and/or Non Surgical Condition No Interventions Intervention Associated Problem/Goal Status Variance Visit Notes Medication Education Description: Evaluate/instruct patient/caregiver on obtaining, storing, identifying and administering ordered medications as well as keeping accurate medication list in the home and adhereing to medication schedule Problem:Medication Education Goal:Patient/caregive r will demonstrate ability to obtain, store, identify and administer ordered medications, keep accurate medication list in home, and adhere to medication schedule Completed Patient instructed on adhering to medication schedule. SPO2 Description: Notify Dr. Ambriz if pulse ox is <92% at rest. Problem:Physician Specific Parameters Goal:Patient to maintain parameters within physician-specified ranges throughout certification period Completed Instruct on individual fall risk factors and strategies to prevent falls and injuries caused by falls. Problem:Risk for Falls Goal:Manage Risk for falls Completed OT: Patient instructed on Managing Impaired Functional Mobility: Use assistive device(s): front wheeled walker, raised toilet seat and tub bench and Caregiver to provide assist with: Ambulation, Steps, Transfers and ADL/IADLs. Instruct on pain and instruct on strategies to control pain Problem:Pain Goal:Manage Pain Completed patient instructed on techniques to control pain including Pharmacological measures and Non-Pharmacological measures; rest, positioning/elevation, mobility/therapeutic exercise, use of DME/assistive devices and use of thermal modalities, apply ice to affected area for the following prescribed frequency: up to 20 minutes at a time. Instruct on ongoing discharge plan Problem:Discharge Goal:Manage discharge planning Completed Ongoing Discharge plan: Discharge plan discussed with patient including frequency and duration for home OT and plan for transition to: live independently at home with caregiver assistance. Risk of Sepsis Description: Patient is at risk for sepsis. Monitor closely for s/s of sepsis. Problem:Sepsis Goal:Patient/caregive r will be able to identify and report symptoms of sepsis Completed Instruct and educate on knowledge deficits Problem:OT Learning Assessment Goal:Demonstrate understanding of education Completed Education methods include: verbal cues. Patient/Caregiver require further education to improve knowledge and compliance with fall prevention strategies, orthopedic condition management, pain management, post surgical precautions, home safety, functional adl/iadl activity, functional transfers and discharge planning. ADL/IADLs Training Problem:OT ADLs/IADLs Goal:Improved ADLs/IADLs performance Completed Instruct patient on compensatory strategies, adaptive equipment/DME use, safety and falls prevention, donning right lower extremity first and maintaining posterior THR precautions and agricultural chemicals inspector, sock aide, shoe horn, handled sponge and handheld shower use to facilite improved performance of lower body dressing with minimum assistance and verbal cues and bathing with min/mod assist and verbal cues. Instructed patient on obtaining long-handled sponge to assist with LB Bathing. Transfer Training Problem:OT Functional Transfers Goal:Improved Functional Transfers Completed Instruct patient on safe transfers and proper techniques including hand positoning, sequencing and transfer technique process to perform to and from shower/tub with tub transfer and Min assistance and verbal cues for safe technique. recommended on the following adaptive equipment/durable medical equipment: suction cupgrab bars on wall of shower. Patient has shower surround & standard grab bars are not able to be installed due to chances of damaging the shower surround, so suction grab bars are recommended with strict instructions to check status of bars prior to each transfer. Patient verbalized understanding. Instructed patient & her to practice these tub transfers over the next few days to improve her comfort with these transfers. Instruct on orthopedic precautions and weight bearing restrictions Problem:OT Orthopedic Post Surgical and/or Non Surgical Condition Goal:Manage Orthopedic Condition Completed Instruct patient on orthopedic precautions including Right posterior hip: no hip flexion >90 degrees and use walker at all times. Instruct on self-management of post surgical and/or non-surgical orthopedic intervention Problem:OT Orthopedic Post Surgical and/or Non Surgical Condition Goal:Manage Orthopedic Condition Completed Instruct patient on managagement of orthopedic condition, compensatory techniques to perform functional activity, use of LB ADL assistive devices and methods to maintain post op precautions during functional activity. 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 Problems Problem Description Start Date Status Goals Interve ntions Physician Specific Parameters Disciplines: Skilled Services 06/20/2022 Active 1 goal linked to scheduled/document ed intervention 1 goal intervention scheduled/document ed in this visit Risk for Falls Disciplines: Skilled Services 06/20/2022 Active 1 goal linked to scheduled/document ed intervention 1 goal intervention scheduled/document ed in this visit Pain Disciplines: Skilled Services 06/20/2022 Active 1 goal linked to scheduled/document ed intervention 1 goal intervention scheduled/document ed in this visit PT Impaired muscle performance and/or ROM Disciplines: PT 06/20/2022 Active 1 goal linked to scheduled/document ed intervention 1 goal intervention scheduled/document ed in this visit PT Impaired mobility Disciplines: PT 06/20/2022 Active 2 goals linked to scheduled/document ed interventions 2 goal interventions scheduled/document ed in this visit PT Impaired gait Disciplines: PT 06/20/2022 Active 1 goal linked to scheduled/document ed intervention 1 goal intervention scheduled/document ed in this visit PT Orthopedic Condition Disciplines: PT 06/20/2022 Active 1 goal linked to scheduled/document ed intervention 2 goal interventions scheduled/document ed in this visit Goals Goal Associated Problem Outcome Goal Met? Visit Notes Patient to maintain parameters within physician-specified ranges throughout certification period Physician Specific Parameters No Manage Risk for falls Description: Patient/caregiver will verbalize knowledge of individualized fall prevention strategies by 08/18/22. Risk for Falls No Manage Pain Description: Patient/caregiver will verbalize knowledge and understanding of appropriate techniques to control pain, including pain medication and non-pharmacological techniques. Patient will verbalize or demonstrate an acceptable level of pain as evidenced by a pain score of 2/10 and improvement in ability to perform activities of daily living to be achieved by08/18/22. Pain No Improved Muscle Performance and/or ROM Description: LTG: Patient will demonstrate improved muscle performance to meet functional goals as evidenced by ability to tolerate continuous 7+ minutes standing dynamic activity, to be achieved by 07/13/22. LTG: Patient and/or caregiver will verbalize/demonstrate independence with home exercise program, to improve functional mobility, to be achieved by 07/13/22. PT Impaired muscle performance and/or ROM No Improved Transfers Description: STG: Patient will demonstrate safe transfers to/from bed, chair and household surfaces independently, to be achieved by 07/06/22. LTG: Patient will demonstrate safe transfers to/from car independently, to be achieved by 07/13/22. PT Impaired mobility No Improved Bed Mobility Description: STG: Patient will demonstrate improved bed mobility and supine <> sit independently to be achieved by 07/06/22. PT Impaired mobility No Improved Gait Description: STG: Patient will demonstrate improved gait ability as evidenced by ambulation 100 feet with front wheeled walker with supervision, in order to navigate household environments, to be achieved by 06/29/22. LTG: Patient will demonstrate improved gait ability as evidenced by ambulation >150 feet with single point cane independently, to return to safe household and community ambulation, in order to safely perform household and community mobility, to be achieved by 07/13/22. PT Impaired gait No Manage Orthopedic Condition Description: Improve patient and/or caregiver understanding of post surgical and/or non-surgical orthopedic intervention management as evidenced by patient and/or caregiver able to verbalize, demonstrate, and teach back instruction, to be achieved by 07/13/22. PT Orthopedic Condition No Interventions Intervention Associated Problem/Goal Status Variance Visit Notes SPO2 Description: Notify Dr. Ambriz if pulse ox is <92% at rest. Problem:Physician Specific Parameters Goal:Patient to maintain parameters within physician-specified ranges throughout certification period Completed Instruct on individual fall risk factors and strategies to prevent falls and injuries caused by falls. Problem:Risk for Falls Goal:Manage Risk for falls Completed PT: Patient instructed on Managing Impaired Functional Mobility: Use assistive device(s): single point cane and Caregiver to provide assist with: Ambulation and Steps Managing Pain Instruct on pain and instruct on strategies to control pain Problem:Pain Goal:Manage Pain Completed patient instructed on techniques to control pain including Non-Pharmacological measures; positioning/elevation , mobility/therapeutic exercise, distraction, use of DME/assistive devices and use of thermal modalities, apply ice to affected area. Physical Therapy Therapeutic Exercises Problem:PT Impaired muscle performance and/or ROM Goal:Improved Muscle Performance and/or ROM Completed patient instructed on strengthening exercises including: with verbal cues to . patient instructed to perform home exercise program daily x 2 which included: Above exercises. Physical Therapy Transfer Training Problem:PT Impaired mobility Goal:Improved Transfers Completed Transfer training and instruction to patient on safe transfers to and from bed and chair independent. Physical Therapy Bed Mobility Training Problem:PT Impaired mobility Goal:Improved Bed Mobility Completed Bed mobility training and instruction to patient, including supine<>sit with minimal assist for L LE movement. Physical Therapy Gait Training Problem:PT Impaired gait Goal:Improved Gait Completed Gait training and instruction to patient on safe ambulation with single point cane for 100 feet with supervision. Gt is anatalgic. Pt reports using wheeled walker with RA flare ups. Instruct on orthopedic precautions and weight bearing restrictions Description: Orthopedic precautions including right posterior hip: no hip flexion > 90 degrees, no hip abduction, no adduction, no internal rotation of involved extermity and no pivoting on fixed foot. Weight bearing restrictions include: WBAT of involved extremity. Problem:PT Orthopedic Condition Goal:Manage Orthopedic Condition Completed patient instructed on orthopedic precautions. Instruct on self-management of post surgical and/or non-surgical orthopedic intervention Problem:PT Orthopedic Condition Goal:Manage Orthopedic Condition Completed patient instructed on signs and symptoms of infection, signs and symptoms of DVT/PE, instructed on when to call provider and instructed on when to call 911. documented in this [facility] Plan of care note* Visit Details Visit Type -OT ROUTINE Discipline -Occupational Therapy Problems Problem Description Start Date Status Goals Interve ntions Medication Education Disciplines: Skilled Services 06/20/2022 Active 1 goal linked to scheduled/documen trang intervention 1 goal intervention scheduled/document ed in this visit Physician Specific Parameters Disciplines: Skilled Services 06/20/2022 Active 1 goal linked to scheduled/documen trang intervention 1 goal intervention scheduled/document ed in this visit Risk for Falls Disciplines: Skilled Services 06/20/2022 Active 1 goal linked to scheduled/documen trang intervention 1 goal intervention scheduled/document ed in this visit Pain Disciplines: Skilled Services 06/20/2022 Active 1 goal linked to scheduled/documen trang intervention 1 goal intervention scheduled/document ed in this visit Discharge Disciplines: Skilled Services 06/20/2022 Active 1 goal linked to scheduled/documen trang intervention 1 goal intervention scheduled/document ed in this visit Sepsis Disciplines: Skilled Services 06/20/2022 Active 1 goal linked to scheduled/documen trang intervention 1 goal intervention scheduled/document ed in this visit OT Learning Assessment Disciplines: OT 06/24/2022 Resolved on 07/03/2022 1 goal linked to scheduled/documen trang intervention 1 goal intervention scheduled/document ed in this visit OT ADLs/IADLs Disciplines: OT 06/24/2022 Resolved on 07/03/2022 1 goal linked to scheduled/documen trang intervention 1 goal intervention scheduled/document ed in this visit OT Functional Transfers Disciplines: OT 06/24/2022 Resolved on 07/03/2022 1 goal linked to scheduled/documen trang intervention 1 goal intervention scheduled/document ed in this visit OT Orthopedic Post Surgical and/or Non Surgical Condition Disciplines: OT 06/24/2022 Resolved on 07/03/2022 1 goal linked to scheduled/documen trang intervention 3 goal interventions scheduled/document ed in this visit Goals Goal Associated Problem Outcome Goal Met? Visit Notes Patient/caregiver will demonstrate ability to obtain, store, identify and administer ordered medications, keep accurate medication list in home, and adhere to medication schedule Description: Patient/caregiver will demonstrate ability to obtain, store, identify and administer ordered medications, keep accurate medication list in home, and adhere to medication schedule by 08/18/22. Medication Education No Patient to maintain parameters within physician-specified ranges throughout certification period Physician Specific Parameters No Manage Risk for falls Description: Patient/caregiver will verbalize knowledge of individualized fall prevention strategies by 08/18/22. Risk for Falls No Manage Pain Description: Patient/caregiver will verbalize knowledge and understanding of appropriate techniques to control pain, including pain medication and non-pharmacological techniques. Patient will verbalize or demonstrate an acceptable level of pain as evidenced by a pain score of 2/10 and improvement in ability to perform activities of daily living to be achieved by08/18/22. Pain No Manage discharge planning Description: Patient/caregiver will verbalize understanding of ongoing discharge plan provided related to disease management, arrangements for outpatient and/or community services, obtaining medications, supplies, and DME, as needed throughout certification period. Discharge No Patient/caregiver will be able to identify and report symptoms of sepsis Description: Patient/caregiver will be able to identify signs/symptoms of sepsis infection and will verbalize actions to take if suspected by 08/18/22 Sepsis No Demonstrate understanding of education Description: Patient and/or caregiver will understand educational instruction to be achieved by 07/06/22. OT Learning Assessment Completed Yes met Improved ADLs/IADLs performance Description: Patient will verbalize understanding of instructions and demonstrate improved performance of grooming, upper body dressing, lower body dressing, bathing and toileting to independence as evidenced by improved Karthik ADL Index score to at least 60/100, to be achieved by 07/06/22. Patient will verbalize understanding of instructions and demonstrate improved performance of light meal prep and homemaking tasks to independence as evidenced by improved Karthki ADL Index score to at least 60/100, to be achieved by 07/06/22. OT ADLs/IADLs Completed Yes met Improved Functional Transfers Description: Patient will demonstrate safe transfers to/from toilet with independent assistance and no cues with use of DME to be achieved by 06/29/22. Patient will demonstrate safe transfers to/from shower/tub with supervision assistance and minimal verbal cues with use of DME to be achieved by 07/06/22. OT Functional Transfers Completed Yes met Manage Orthopedic Condition Description: Improve patient and/or caregiver understanding of post surgical and/or non-surgical orthopedic intervention management as evidenced by patient and/or caregiver able to verbalize, demonstrate, and teach back instruction with a minimum of two strategies. To be achieved by 07/06/22. OT Orthopedic Post Surgical and/or Non Surgical Condition Completed Yes met Interventions Intervention Associated Problem/Goal Status Variance Visit Notes Medication Education Description: Evaluate/instruct patient/caregiver on obtaining, storing, identifying and administering ordered medications as well as keeping accurate medication list in the home and adhereing to medication schedule Problem:Medication Education Goal:Patient/caregive r will demonstrate ability to obtain, store, identify and administer ordered medications, keep accurate medication list in home, and adhere to medication schedule Completed Patient instructed on importance of keeping accurate medication list in home and adhering to medication schedule. SPO2 Description: Notify Dr. Ambriz if pulse ox is <92% at rest. Problem:Physician Specific Parameters Goal:Patient to maintain parameters within physician-specified ranges throughout certification period Completed Instruct on individual fall risk factors and strategies to prevent falls and injuries caused by falls. Problem:Risk for Falls Goal:Manage Risk for falls Completed OT: Patient instructed on Managing Impaired Functional Mobility: Use assistive device(s): front wheeled walker, raised toilet seat, single point cane and tub bench and Caregiver to provide assist with: Ambulation, Steps, Transfers and ADL/IADLs. Instruct on pain and instruct on strategies to control pain Problem:Pain Goal:Manage Pain Completed patient instructed on techniques to control pain including Pharmacological measures and Non-Pharmacological measures; rest, positioning/elevation, mobility/therapeutic exercise, use of DME/assistive devices and use of thermal modalities, apply ice to affected area for the following prescribed frequency: Up to 20 minutes at a time, several times a day. Instruct on ongoing discharge plan Problem:Discharge Goal:Manage discharge planning Completed Ongoing Discharge plan: Discharge plan discussed with patient including frequency and duration for home OT, including OT Discharge today since ADL went well, and plan for transition to: live independently at home without ongoing services. Risk of Sepsis Description: Patient is at risk for sepsis. Monitor closely for s/s of sepsis. Problem:Sepsis Goal:Patient/caregive r will be able to identify and report symptoms of sepsis Completed Instruct and educate on knowledge deficits Problem:OT Learning Assessment Goal:Demonstrate understanding of education Completed Education methods include: verbal cues. Patient/Caregiver require further education to improve knowledge and compliance with fall prevention strategies, orthopedic condition management, pain management, post surgical precautions, home safety, functional adl/iadl activity, functional transfers, home exercise program and discharge planning. ADL/IADLs Training Problem:OT ADLs/IADLs Goal:Improved ADLs/IADLs performance Completed Instruct patient on compensatory strategies, energy conservation, adaptive equipment/DME use, safety and falls prevention, donning right lower extremity first and maintaining posterior hip precautions and agricultural chemicals inspector, sock aide and shoe horn use to facilitate improved performance of lower body dressing with independence and bathing with supervision and occasional cues to answer patient's concerns regarding maintaining her hip precautions. Recommended long-handled sponge to assist with bathing. Patient able to use agricultural chemicals inspector to turn water on/off in shower and reach hand-held shower. Karthik ADL Index Score: 85/100. Patient demonstrates modified independence with accessing items in her house for simple homemaking & meal prep tasks with use of walker or cane. Reports she uses her walker when her RA flares up. Transfer Training Problem:OT Functional Transfers Goal:Improved Functional Transfers Completed Instruct patient on safe transfers and proper techniques including hand placement & sequencing to perform to and from shower/tub with Supervision assistance and no cues for technique. Independent with toilet transfers. Instruct on orthopedic precautions and weight bearing restrictions Problem:OT Orthopedic Post Surgical and/or Non Surgical Condition Goal:Manage Orthopedic Condition Completed Instruct patient on orthopedic precautions including Right posterior hip: no hip flexion >90 degrees. Instruct on management of edema Problem:OT Orthopedic Post Surgical and/or Non Surgical Condition Goal:Manage Orthopedic Condition Completed Instruct patient on management of edema including compression stockings, ice and benefits of activity. 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 Problems Problem Description Start Date Status Goals Interve ntions Physician Specific Parameters Disciplines: Skilled Services 06/20/2022 Active 1 goal linked to scheduled/document ed intervention 1 goal intervention scheduled/document ed in this visit PT Impaired muscle performance and/or ROM Disciplines: PT 06/20/2022 Active 1 goal linked to scheduled/document ed intervention 1 goal intervention scheduled/document ed in this visit PT Impaired gait Disciplines: PT 06/20/2022 Active 2 goals linked to scheduled/document ed interventions 2 goal interventions scheduled/document ed in this visit PT Impaired balance Disciplines: PT 06/20/2022 Active 1 goal linked to scheduled/document ed intervention 1 goal intervention scheduled/document ed in this visit PT Orthopedic Condition Disciplines: PT 06/20/2022 Active 1 goal linked to scheduled/document ed intervention 2 goal interventions scheduled/document ed in this visit PT Pulmonary Disease Disciplines: PT 06/20/2022 Active 1 goal linked to scheduled/document ed intervention 1 goal intervention scheduled/document ed in this visit Sepsis Disciplines: Skilled Services 06/20/2022 Active 1 goal linked to scheduled/document ed intervention 1 goal intervention scheduled/document ed in this visit Goals Goal Associated Problem Outcome Goal Met? Visit Notes Patient to maintain parameters within physician-specified ranges throughout certification period Physician Specific Parameters No Improved Muscle Performance and/or ROM Description: LTG: Patient will demonstrate improved muscle performance to meet functional goals as evidenced by ability to tolerate continuous 7+ minutes standing dynamic activity, to be achieved by 07/13/22. LTG: Patient and/or caregiver will verbalize/demonstrate independence with home exercise program, to improve functional mobility, to be achieved by 07/13/22. PT Impaired muscle performance and/or ROM No Improved Stair Climbing Description: STG:: Patient will demonstrate improved stair negotiation as evidenced by ascend/descend 3 exit steps with device with supervision, to be achieved by 07/06/22. LTG: Patient will demonstrate improved stair negotiation as evidenced by ascend/descend 3 exit and basement full flight steps with device independently, to safely access all areas of the home, access community and exit home, to be achieved by 07/13/22. PT Impaired gait No Improved Gait Description: STG: Patient will demonstrate improved gait ability as evidenced by ambulation 100 feet with front wheeled walker with supervision, in order to navigate household environments, to be achieved by 06/29/22. LTG: Patient will demonstrate improved gait ability as evidenced by ambulation >150 feet with single point cane independently, to return to safe household and community ambulation, in order to safely perform household and community mobility, to be achieved by 07/13/22. PT Impaired gait No Improved Balance Description: LTG: Patient will demonstrate improved standing balance to meet functional goals as evidenced by TUG score of 14 seconds or less to be achieved by 07/13/22. PT Impaired balance No Manage Orthopedic Condition Description: Improve patient and/or caregiver understanding of post surgical and/or non-surgical orthopedic intervention management as evidenced by patient and/or caregiver able to verbalize, demonstrate, and teach back instruction, to be achieved by 07/13/22. PT Orthopedic Condition No Manage Secondary Pulmonary Disease Description: Improve patient and/or caregiver understanding of secondary pulmonary disease management as evidenced by patient and/or caregiver able to verbalize, demonstrate, and teach back instruction, to be achieved by 07/13/22. PT Pulmonary Disease No Patient/caregiver will be able to identify and report symptoms of sepsis Description: Patient/caregiver will be able to identify signs/symptoms of sepsis infection and will verbalize actions to take if suspected by 08/18/22 Sepsis No Interventions Intervention Associated Problem/Goal Status Variance Visit Notes SPO2 Description: Notify Dr. Ambriz if pulse ox is <92% at rest. Problem:Physician Specific Parameters Goal:Patient to maintain parameters within physician-specified ranges throughout certification period Completed Physical Therapy Therapeutic Exercises Problem:PT Impaired muscle performance and/or ROM Goal:Improved Muscle Performance and/or ROM Completed patient instructed on strengthening exercises including standing heel raises, ham curls, hip abduction and slr x's 10 each. seated laq x's 10 with verbal, visual and written cues for correct form and pace. patient instructed to perform home exercise program twice a day which included above exercises. Physical Therapy Stair Training Problem:PT Impaired gait Goal:Improved Stair Climbing Completed Stair training and instruction to patient on safe stair climbing, ascend/descend 4 steps at front door , without railing and with environmental support and cane with stand by assist and verbal cues for correct step pattern. Plus 5 steps at garage w/ rail and cane, sba . Physical Therapy Gait Training Problem:PT Impaired gait Goal:Improved Gait Completed Gait training and instruction to patient on safe ambulation with single point cane for 2x's 80 feet with supervision, with verbal cues for corrections of gait deviations including pacing for safety and to abolish antalgicgait pattern. Physical Therapy Balance Training Problem:PT Impaired balance Goal:Improved Balance Completed Developed, implemented, and instructed patient on standing balance exercises including standing exercises and cane ambulation. Instruct on orthopedic precautions and weight bearing restrictions Description: Orthopedic precautions including right posterior hip: no hip flexion > 90 degrees, no hip abduction, no adduction, no internal rotation of involved extermity and no pivoting on fixed foot. Weight bearing restrictions include: WBAT of involved extremity. Problem:PT Orthopedic Condition Goal:Manage Orthopedic Condition Completed patient instructed on orthopedic precautions. Instruct on self-management of post surgical and/or non-surgical orthopedic intervention Problem:PT Orthopedic Condition Goal:Manage Orthopedic Condition Completed patient instructed on signs and symptoms of infection, signs and symptoms of DVT/PE, instructed on when to call provider and instructed on when to call 911. Instruct on signs, symptoms, and management of secondary pulmonary disease Problem:PT Pulmonary Disease Goal:Manage Secondary Pulmonary Disease Completed patient instructed on exercise and activity guidelines. Risk of Sepsis Description: Patient is at risk for sepsis. Monitor closely for s/s of sepsis. Problem:Sepsis Goal:Patient/caregiver will be able to identify and report symptoms of sepsis Completed documented in this encounter [facility] Plan of care note* Visit Details Visit Type -PT AGENCY ESTHELA MALDONADO Discipline -Physical Therapy Problems Problem Description Start Date Status Goals Interve ntions Medication Education Disciplines: Skilled Services 06/20/2022 Resolved on 07/08/2022 1 goal linked to scheduled/document ed intervention 1 goal intervention scheduled/document ed in this visit Physician Specific Parameters Disciplines: Skilled Services 06/20/2022 Resolved on 07/08/2022 1 goal linked to scheduled/document ed intervention 1 goal intervention scheduled/document ed in this visit Risk for Falls Disciplines: Skilled Services 06/20/2022 Resolved on 07/08/2022 1 goal linked to scheduled/document ed intervention 1 goal intervention scheduled/document ed in this visit Pain Disciplines: Skilled Services 06/20/2022 Resolved on 07/08/2022 1 goal linked to scheduled/document ed intervention 1 goal intervention scheduled/document ed in this visit High Risk Medications Disciplines: Skilled Services 06/20/2022 Resolved on 07/08/2022 1 goal linked to scheduled/document ed intervention Discharge Disciplines: Skilled Services 06/20/2022 Resolved on 07/08/2022 1 goal linked to scheduled/document ed intervention PT Impaired muscle performance and/or ROM Disciplines: PT 06/20/2022 Resolved on 07/08/2022 1 goal linked to scheduled/document ed intervention 1 goal intervention scheduled/document ed in this visit PT Impaired mobility Disciplines: PT 06/20/2022 Resolved on 07/08/2022 2 goals linked to scheduled/document ed interventions 2 goal interventions scheduled/document ed in this visit PT Impaired gait Disciplines: PT 06/20/2022 Resolved on 07/08/2022 2 goals linked to scheduled/document ed interventions 2 goal interventions scheduled/document ed in this visit PT Impaired balance Disciplines: PT 06/20/2022 Resolved on 07/08/2022 1 goal linked to scheduled/document ed intervention 1 goal intervention scheduled/document ed in this visit PT Orthopedic Condition Disciplines: PT 06/20/2022 Resolved on 07/08/2022 1 goal linked to scheduled/document ed intervention 3 goal interventions scheduled/document ed in this visit PT Learning Assessment Disciplines: PT 06/20/2022 Resolved on 07/08/2022 1 goal linked to scheduled/document ed intervention 1 goal intervention scheduled/document ed in this visit PT Pulmonary Disease Disciplines: PT 06/20/2022 Resolved on 07/08/2022 1 goal linked to scheduled/document ed intervention 1 goal intervention scheduled/document ed in this visit Sepsis Disciplines: Skilled Services 06/20/2022 Resolved on 07/08/2022 1 goal linked to scheduled/document ed intervention 1 goal intervention scheduled/document ed in this visit Goals Goal Associated Problem Outcome Goal Met? Visit Notes Patient/caregiver will demonstrate ability to obtain, store, identify and administer ordered medications, keep accurate medication list in home, and adhere to medication schedule Description: Patient/caregiver will demonstrate ability to obtain, store, identify and administer ordered medications, keep accurate medication list in home, and adhere to medication schedule by 08/18/22. Medication Education Completed Yes Patient to maintain parameters within physician-specified ranges throughout certification period Physician Specific Parameters Completed Yes Manage Risk for falls Description: Patient/caregiver will verbalize knowledge of individualized fall prevention strategies by 08/18/22. Risk for Falls Completed Yes Manage Pain Description: Patient/caregiver will verbalize knowledge and understanding of appropriate techniques to control pain, including pain medication and non-pharmacological techniques. Patient will verbalize or demonstrate an acceptable level of pain as evidenced by a pain score of 2/10 and improvement in ability to perform activities of daily living to be achieved by08/18/22. Pain Completed Yes Patient/caregiver will teach back high risk medication side effect and precaution education High Risk Medications Completed Yes Manage discharge planning Description: Patient/caregiver will verbalize understanding of ongoing discharge plan provided related to disease management, arrangements for outpatient and/or community services, obtaining medications, supplies, and DME, as needed throughout certification period. Discharge Completed Yes Improved Muscle Performance and/or ROM Description: LTG: Patient will demonstrate improved muscle performance to meet functional goals as evidenced by ability to tolerate continuous 7+ minutes standing dynamic activity, to be achieved by 07/13/22. LTG: Patient and/or caregiver will verbalize/demonstrate independence with home exercise program, to improve functional mobility, to be achieved by 07/13/22. PT Impaired muscle performance and/or ROM Completed Yes Improved Transfers Description: STG: Patient will demonstrate safe transfers to/from bed, chair and household surfaces independently, to be achieved by 07/06/22. LTG: Patient will demonstrate safe transfers to/from car independently, to be achieved by 07/13/22. PT Impaired mobility Completed Yes Improved Bed Mobility Description: STG: Patient will demonstrate improved bed mobility and supine <> sit independently to be achieved by 07/06/22. PT Impaired mobility Completed Yes Improved Stair Climbing Description: STG:: Patient will demonstrate improved stair negotiation as evidenced by ascend/descend 3 exit steps with device with supervision, to be achieved by 07/06/22. LTG: Patient will demonstrate improved stair negotiation as evidenced by ascend/descend 3 exit and basement full flight steps with device independently, to safely access all areas of the home, access community and exit home, to be achieved by 07/13/22. PT Impaired gait Completed Yes Improved Gait Description: STG: Patient will demonstrate improved gait ability as evidenced by ambulation 100 feet with front wheeled walker with supervision, in order to navigate household environments, to be achieved by 06/29/22. LTG: Patient will demonstrate improved gait ability as evidenced by ambulation >150 feet with single point cane independently, to return to safe household and community ambulation, in order to safely perform household and community mobility, to be achieved by 07/13/22. PT Impaired gait Completed Yes Improved Balance Description: LTG: Patient will demonstrate improved standing balance to meet functional goals as evidenced by TUG score of 14 seconds or less to be achieved by 07/13/22. PT Impaired balance Completed Yes Manage Orthopedic Condition Description: Improve patient and/or caregiver understanding of post surgical and/or non-surgical orthopedic intervention management as evidenced by patient and/or caregiver able to verbalize, demonstrate, and teach back instruction, to be achieved by 07/13/22. PT Orthopedic Condition Completed Yes Demonstrate understanding of education Description: Patient and/or caregiver will understand educational instruction to be achieved by 07/13/22. PT Learning Assessment Completed Yes Manage Secondary Pulmonary Disease Description: Improve patient and/or caregiver understanding of secondary pulmonary disease management as evidenced by patient and/or caregiver able to verbalize, demonstrate, and teach back instruction, to be achieved by 07/13/22. PT Pulmonary Disease Completed Yes Patient/caregiver will be able to identify and report symptoms of sepsis Description: Patient/caregiver will be able to identify signs/symptoms of sepsis infection and will verbalize actions to take if suspected by 08/18/22 Sepsis Completed Yes Interventions Intervention Associated Problem/Goal Status Variance Visit Notes Medication Education Description: Evaluate/instruct patient/caregiver on obtaining, storing, identifying and administering ordered medications as well as keeping accurate medication list in the home and adhereing to medication schedule Problem:Medication Education Goal:Patient/caregive r will demonstrate ability to obtain, store, identify and administer ordered medications, keep accurate medication list in home, and adhere to medication schedule Completed Patient instructed on importance of keeping accurate medication list in home and adhering to medication schedule. SPO2 Description: Notify Dr. Ambriz if pulse ox is <92% at rest. Problem:Physician Specific Parameters Goal:Patient to maintain parameters within physician-specified ranges throughout certification period Completed Instruct on individual fall risk factors and strategies to prevent falls and injuries caused by falls. Problem:Risk for Falls Goal:Manage Risk for falls Completed PT: Patient instructed on Eliminating Environmental Hazards: Keep pathways clear, Keep pets out of pathways, Remove unsafe rugs and Move furniture from pathways Managing Impaired Functional Mobility: Use assistive device(s): front wheeled walker Managing Pain Instruct on pain and instruct on strategies to control pain Problem:Pain Goal:Manage Pain Completed patient instructed on techniques to control pain including Pharmacological measures and Non-Pharmacological measures; rest and positioning/elevation. Physical Therapy Therapeutic Exercises Problem:PT Impaired muscle performance and/or ROM Goal:Improved Muscle Performance and/or ROM Completed patient instructed on strengthening exercises including standing heel raises, ham curls, hip abduction and slr x's 10 each. seated laq x's 10 with verbal, visual and written cues for correct form and pace. patient instructed to perform home exercise program twice a day which included above exercises. Physical Therapy Transfer Training Problem:PT Impaired mobility Goal:Improved Transfers Completed RUDY transfer with safe/proepr technique Physical Therapy Bed Mobility Training Problem:PT Impaired mobility Goal:Improved Bed Mobility Completed RUDY bed mobility with safe/proper technique Physical Therapy Stair Training Problem:PT Impaired gait Goal:Improved Stair Climbing Completed Stair training and instruction to patient on safe stair climbing, ascend/descend 4 steps, with railing and with cane with independent Physical Therapy Gait Training Problem:PT Impaired gait Goal:Improved Gait Completed Gait training and instruction to patient on safe ambulation with single point cane for 150 feet with independent,. Physical Therapy Balance Training Problem:PT Impaired balance Goal:Improved Balance Completed pt demonstrates improved dynamic standing balance as evidenced by a tug of 23 Instruct on orthopedic precautions and weight bearing restrictions Description: Orthopedic precautions including right posterior hip: no hip flexion > 90 degrees, no hip abduction, no adduction, no internal rotation of involved extermity and no pivoting on fixed foot. Weight bearing restrictions include: WBAT of involved extremity. Problem:PT Orthopedic Condition Goal:Manage Orthopedic Condition Completed patient instructed on orthopedic precautions and weight bearing restrictions. Instruct on management of edema Problem:PT Orthopedic Condition Goal:Manage Orthopedic Condition Completed Instruct patient on management of edema including elevation of RLE above the level of the heart and ice. Instruct on self-management of post surgical and/or non-surgical orthopedic intervention Problem:PT Orthopedic Condition Goal:Manage Orthopedic Condition Completed patient instructed on managagement of orthopedic condition, signs and symptoms of infection, signs and symptoms of DVT/PE, follow provider guidance for showering and instructed on when to call provider. Instruct and educate on knowledge deficits Problem:PT Learning Assessment Goal:Demonstrate understanding of education Completed patient verbalize and/or demonstrate understanding of physical therapy education including orthopedic condition management, weight bearing precautions, surgical precautions and pain management. Education methods include: verbal cues and written instructions. Instruct on signs, symptoms, and management of secondary pulmonary disease Problem:PT Pulmonary Disease Goal:Manage Secondary Pulmonary Disease Completed patient instructed on instructed on when to call provider. Risk of Sepsis Description: Patient is at risk for sepsis. Monitor closely for s/s of sepsis. Problem:Sepsis Goal:Patient/caregive r will be able to identify and report symptoms of sepsis Completed documented in this encounter [facility] Plan of care note* Visit Details Visit Type -PT SOC Discipline -Physical Therapy Problems Problem Description Start Date Status Goals Interve ntions Medication Education Disciplines: Skilled Services 11/20/2022 Active 1 goal linked to scheduled/documente d intervention 1 goal intervention scheduled/documente d in this visit Sepsis Disciplines: Skilled Services 11/20/2022 Active 1 goal linked to scheduled/documente d intervention 1 goal intervention scheduled/documente d in this visit Physician Specific Parameters Disciplines: Skilled Services 11/20/2022 Active 1 goal linked to scheduled/documente d intervention 1 goal intervention scheduled/documente d in this visit Risk for Falls Disciplines: Skilled Services 11/20/2022 Active 1 goal linked to scheduled/documente d intervention 1 goal intervention scheduled/documente d in this visit Pain Disciplines: Skilled Services 11/20/2022 Active 1 goal linked to scheduled/documente d intervention 1 goal intervention scheduled/documente d in this visit Nutrition/Hydra tion Disciplines: Skilled Services 11/20/2022 Active 1 goal linked to scheduled/documente d intervention 1 goal intervention scheduled/documente d in this visit High Risk Medications Disciplines: Skilled Services 11/20/2022 Active 1 goal linked to scheduled/documente d intervention 2 goal interventions scheduled/documente d in this visit Discharge Disciplines: Skilled Services 11/20/2022 Active 1 goal linked to scheduled/documente d intervention 1 goal intervention scheduled/documente d in this visit Advance Directives Disciplines: Skilled Services 11/20/2022 Active 1 goal linked to scheduled/documente d intervention 1 goal intervention scheduled/documente d in this visit Goals Goal Associated Problem Outcome Goal Met? Visit Notes Patient/caregiver will demonstrate ability to obtain, store, identify and administer ordered medications, keep accurate medication list in home, and adhere to medication schedule Description: Patient/caregiver will demonstrate ability to obtain, store, identify and administer ordered medications, keep accurate medication list in home, and adhere to medication schedule by 01/18/23. Medication Education No Patient/caregiver will be able to identify and report symptoms of sepsis Description: Patient/caregiver will be able to identify signs/symptoms of sepsis infection and will verbalize actions to take if suspected by 01/18/23. Sepsis No Patient to maintain parameters within physician-specified ranges throughout certification period Physician Specific Parameters No Manage Risk for falls Description: Patient/caregiver will verbalize knowledge of individualized fall prevention strategies by 01/18/23. Risk for Falls No Manage Pain Description: Patient/caregiver will verbalize knowledge and understanding of appropriate techniques to control pain, including pain medication and non-pharmacological techniques. Patient will verbalize or demonstrate an acceptable level of pain as evidenced by a pain score of 3/10 and improvement in ability to perform activities of daily living to be achieved by 01/18/23. Pain No Manage Nutrition/Hydration Description: Patient/caregiver will verbalize/demonstrate knowledge of prescribed diet and/or healthy nutrition to be achieved by 01/18/23. Nutrition/Hydration No Patient/caregiver will teach back high risk medication side effect and precaution education High Risk Medications No Manage discharge planning Description: Patient/caregiver will verbalize understanding of ongoing discharge plan provided related to disease management, arrangements for outpatient and/or community services, obtaining medications, supplies, and DME, as needed throughout certification period. Discharge No Patient/caregiver will make healthcare providers aware of and any changes to Advance Directives throughout certification period Advance Directives No Interventions Intervention Associated Problem/Goal Status Variance Visit Notes Medication Education Description: Evaluate/instruct patient/caregiver on obtaining, storing, identifying and administering ordered medications as well as keeping accurate medication list in the home and adhereing to medication schedule Problem:Medication Education Goal:Patient/caregive r will demonstrate ability to obtain, store, identify and administer ordered medications, keep accurate medication list in home, and adhere to medication schedule Completed Patient instructed on importance of keeping accurate medication list in home and adhering to medication schedule. Risk of Sepsis Description: Patient is at risk for sepsis. Monitor closely for s/s of sepsis. Problem:Sepsis Goal:Patient/caregive r will be able to identify and report symptoms of sepsis Completed SPO2 Description: Notify Dr. Ambriz if pulse ox is <92% at rest. Problem:Physician Specific Parameters Goal:Patient to maintain parameters within physician-specified ranges throughout certification period Completed Instruct on individual fall risk factors and strategies to prevent falls and injuries caused by falls. Problem:Risk for Falls Goal:Manage Risk for falls Completed PT: Patient instructed on Eliminating Environmental Hazards: Keep pathways clear and Keep pets out of pathways Managing Impaired Functional Mobility: Use assistive device(s): front wheeled walker Managing Pain Instruct on pain and instruct on strategies to control pain Problem:Pain Goal:Manage Pain Completed patient and caregiver instructed on techniques to control pain including Pharmacological measures and Non-Pharmacological measures; positioning/elevation, mobility/therapeutic exercise and use of thermal modalities, apply ice to affected area for the following prescribed frequency: 20 minutes at time . Define patient s appetite/hydration status and implement strategies to improve compliance with prescribed diet and/or healthy nutrition. Problem:Nutrition/Hyd ration Goal:Manage Nutrition/Hydration Completed instructed patient and caregiver on implementing strategies to comply with healthy nutrition and adequate hydration Opioids- educated on high risk medication Problem:High Risk Medications Goal:Patient/caregive r will teach back high risk medication side effect and precaution education Completed patient educated on taking medication(s) as prescribed by provider. Do not stop medication or alter doses without speaking with your provider. Discuss medication effectiveness or side effect concerns with your provider and home care team. Only take opioids as prescribed, do not share your medications, and take proper precautions in storing and properly disposing of opioids once no longer needed. Possible side effects of opioid medication including sedation, decreased rate of breathing, and constipation. Report over sedation to prescribing provider and practice deep breathing techniques every hour while awake. Prevent constipation by increasing water and fiber intake, increasing activity as tolerated, and use stool softener(s) as prescribed. Antiplatelet- educated on high risk medication Problem:High Risk Medications Goal:Patient/caregive r will teach back high risk medication side effect and precaution education Completed patient educated on taking medication(s) as prescribed by provider. Do not stop medication or alter doses without speaking with your provider. Discuss medication effectiveness or side effect concerns with your provider and home care team. Discuss all medications you are taking, even [id number] medicines, with your provider and pharmacist since many drugs can interact with antiplatelet medications. If you forget to take a dose, DO NOT take a double dose. Take the missed dose as soon as possible on the same day. DO NOT take a double dose the next day to make up for the missed dose. Watch for signs of abnormal or excessive bleeding and bruising (refer to Bleeding Precautions education). Call your health care provider right away if you suspect something is wrong. Instruct on ongoing discharge plan Problem:Discharge Goal:Manage discharge planning Completed Ongoing Discharge plan: Discharge plan discussed with patient including frequency and duration for home PT and plan for transition to: outpatient therapy. Determine patient's Advance Directive Status Description: Patient does have advance directives. Patient's Advance Directives determined to be available in Home and EMR Healthcare DPOA and Living Will. Problem:Advance Directives Goal:Patient/caregive r will make healthcare providers aware of and any changes to Advance Directives throughout certification period Completed Discussed Advance Directives with Patient and/or Caregiver. Referred patient to Home Care handbook for further information on Healthcare DPOA & Living Will. documented in this encounter [facility] home Plan of care note* Visit Details Visit Type -PT CASE MANAGEME NT VISIT Discipline -Physical Therapy Problems Problem Description Start Date Status Goals Interve ntions Sepsis Disciplines: Skilled Services 11/20/2022 Active 1 goal linked to scheduled/document ed intervention 1 goal intervention scheduled/document ed in this visit Physician Specific Parameters Disciplines: Skilled Services 11/20/2022 Active 1 goal linked to scheduled/document ed intervention 1 goal intervention scheduled/document ed in this visit Risk for Falls Disciplines: Skilled Services 11/20/2022 Active 1 goal linked to scheduled/document ed intervention 1 goal intervention scheduled/document ed in this visit Pain Disciplines: Skilled Services 11/20/2022 Active 1 goal linked to scheduled/document ed intervention 1 goal intervention scheduled/document ed in this visit High Risk Medications Disciplines: Skilled Services 11/20/2022 Active 1 goal linked to scheduled/document ed intervention 1 goal intervention scheduled/document ed in this visit Advance Directives Disciplines: Skilled Services 11/20/2022 Active 1 goal linked to scheduled/document ed intervention 1 goal intervention scheduled/document ed in this visit PT Impaired muscle performance and/or ROM Disciplines: PT 11/20/2022 Active 1 goal linked to scheduled/document ed intervention 1 goal intervention scheduled/document ed in this visit PT Impaired mobility Disciplines: PT 11/20/2022 Active 1 goal linked to scheduled/document ed intervention 1 goal intervention scheduled/document ed in this visit PT Impaired gait Disciplines: PT 11/20/2022 Active 1 goal linked to scheduled/document ed intervention 1 goal intervention scheduled/document ed in this visit PT Orthopedic Condition Disciplines: PT 11/20/2022 Active 1 goal linked to scheduled/document ed intervention 3 goal interventions scheduled/document ed in this visit PT Learning Assessment Disciplines: PT 11/20/2022 Active 1 goal linked to scheduled/document ed intervention 1 goal intervention scheduled/document ed in this visit Goals Goal Associated Problem Outcome Goal Met? Visit Notes Patient/caregiver will be able to identify and report symptoms of sepsis Description: Patient/caregiver will be able to identify signs/symptoms of sepsis infection and will verbalize actions to take if suspected by 01/18/23. Sepsis No Patient to maintain parameters within physician-specified ranges throughout certification period Physician Specific Parameters No Manage Risk for falls Description: Patient/caregiver will verbalize knowledge of individualized fall prevention strategies by 01/18/23. Risk for Falls No Manage Pain Description: Patient/caregiver will verbalize knowledge and understanding of appropriate techniques to control pain, including pain medication and non-pharmacological techniques. Patient will verbalize or demonstrate an acceptable level of pain as evidenced by a pain score of 3/10 and improvement in ability to perform activities of daily living to be achieved by 01/18/23. Pain No Patient/caregiver will teach back high risk medication side effect and precaution education High Risk Medications No Patient/caregiver will make healthcare providers aware of and any changes to Advance Directives throughout certification period Advance Directives Completed Yes Improved Muscle Performance and/or ROM Description: LTG: Patient will demonstrate improved muscle performance to meet functional goals as evidenced by ability to tolerate safe home activity, to be achieved by 12/14/22. LTG: Patient and/or caregiver will verbalize/demonstrate independence with home exercise program, to improve functional mobility, to be achieved by 12/14/22. LTG: Patient will demonstrate improved left knee active range of motion to at least 0-95 degrees, to meet functional goals, to be achieved by 12/14/22. PT Impaired muscle performance and/or ROM No Improved Transfers Description: STG: Patient will demonstrate safe transfers to/from bed, chair and couch independently, to be achieved by 11/30/22. LTG: Patient will demonstrate safe transfers to/from shower/tub and car independently, to be achieved by 12/14/22. PT Impaired mobility No Improved Gait Description: LTG: Patient will demonstrate improved gait ability as evidenced by ambulation at least 150 feet with least resistive device independently, to return to safe household ambulation, to be achieved by 12/14/22. PT Impaired gait No Manage Orthopedic Condition Description: Improve patient and/or caregiver understanding of post surgical and/or non-surgical orthopedic intervention management as evidenced by patient and/or caregiver able to verbalize, demonstrate, and teach back instruction, to be achieved by 12/14/22. PT Orthopedic Condition No Demonstrate understanding of education Description: Patient and/or caregiver will understand educational instruction to be achieved by 12/14/22. PT Learning Assessment No Interventions Intervention Associated Problem/Goal Status Variance Visit Notes Risk of Sepsis Description: Patient is at risk for sepsis. Monitor closely for s/s of sepsis. Problem:Sepsis Goal:Patient/caregive r will be able to identify and report symptoms of sepsis Completed SPO2 Description: Notify Dr. Ambriz if pulse ox is <92% at rest. Problem:Physician Specific Parameters Goal:Patient to maintain parameters within physician-specified ranges throughout certification period Completed Instruct on individual fall risk factors and strategies to prevent falls and injuries caused by falls. Problem:Risk for Falls Goal:Manage Risk for falls Completed PT: Patient instructed on Eliminating Environmental Hazards: Keep pathways clear, Keep pets out of pathways, Remove unsafe rugs and Move furniture from pathways Managing Impaired Functional Mobility: Use assistive device(s): front wheeled walker Managing Pain Instruct on pain and instruct on strategies to control pain Problem:Pain Goal:Manage Pain Completed patient instructed on techniques to control pain including Pharmacological measures and Non-Pharmacological measures; rest, positioning/elevation and use of thermal modalities, apply ice to affected area . Opioids- educated on high risk medication Problem:High Risk Medications Goal:Patient/caregive r will teach back high risk medication side effect and precaution education Completed patient educated on taking medication(s) as prescribed by provider. Do not stop medication or alter doses without speaking with your provider. Discuss medication effectiveness or side effect concerns with your provider and home care team. Only take opioids as prescribed, do not share your medications, and take proper precautions in storing and properly disposing of opioids once no longer needed. Possible side effects of opioid medication including sedation, decreased rate of breathing, and constipation. Report over sedation to prescribing provider and practice deep breathing techniques every hour while awake. Prevent constipation by increasing water and fiber intake, increasing activity as tolerated, and use stool softener(s) as prescribed. Determine patient's Advance Directive Status Description: Patient does have advance directives. Patient's Advance Directives determined to be available in Home and EMR Healthcare DPOA and Living Will. Problem:Advance Directives Goal:Patient/caregive r will make healthcare providers aware of and any changes to Advance Directives throughout certification period Completed Discussed Advance Directives with Patient and/or Caregiver. Referred patient to Home Care handbook for further information on Healthcare DPOA & Living Will. Physical Therapy Therapeutic Exercises Problem:PT Impaired muscle performance and/or ROM Goal:Improved Muscle Performance and/or ROM Completed patient and caregiver instructed on strengthening and range of motion exercises including Supine : GS,QS,HS, HIPADD, HIP BD, HEEL SLIDES, SAQ, X 10 supine passive knee ext x 5 min seated knee flexion - 77* with verbal cues for technique/reps/ frequency . patient instructed to perform home exercise program twice a day which included hourly ambulation . Physical Therapy Transfer Training Problem:PT Impaired mobility Goal:Improved Transfers Completed Transfer training and instruction to patient on safe transfers to and from bed and chair with supervision and verbal cues for technique Physical Therapy Gait Training Problem:PT Impaired gait Goal:Improved Gait Completed Gait training and instruction to patient on safe ambulation with rollator walker for 50'x 2 feet with supervision, with verbal cues for corrections of gait deviations including maintaining upright posture , minimal wt on her UE to avoid exacerbating the RA Instruct on orthopedic precautions and weight bearing restrictions Description: Orthopedic precautions including left total knee: no knee flexed over pillow at rest and no kneeling. Weight bearing restrictions include: WBAT of involved extremity. Problem:PT Orthopedic Condition Goal:Manage Orthopedic Condition Completed patient instructed on orthopedic precautions. Instruct on management of edema Problem:PT Orthopedic Condition Goal:Manage Orthopedic Condition Completed Instruct patient on management of edema including elevation of LLE above the level of the heart and ice. Instruct on self-management of post surgical and/or non-surgical orthopedic intervention Problem:PT Orthopedic Condition Goal:Manage Orthopedic Condition Completed patient instructed on managagement of orthopedic condition, eating foods with high protein, signs and symptoms of infection, signs and symptoms of DVT/PE and instructed on when to call provider. Instruct and educate on knowledge deficits Problem:PT Learning Assessment Goal:Demonstrate understanding of education Completed patient verbalize and/or demonstrate understanding of physical therapy education including orthopedic condition management, surgical precautions, pain management, fall prevention strategies, home safety, functional activity and home exercise program. Education methods include: verbal cues. Further education required to improve knowledge and compliance with orthopedic condition management, surgical precautions, pain management, fall prevention strategies, home safety, functional activity and home exercise program. 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 Problems Problem Description Start Date Status Goals Interve ntions Medication Education Disciplines: Skilled Services 11/20/2022 Active 1 goal linked to scheduled/document ed intervention 1 goal intervention scheduled/document ed in this visit Sepsis Disciplines: Skilled Services 11/20/2022 Active 1 goal linked to scheduled/document ed intervention 1 goal intervention scheduled/document ed in this visit Physician Specific Parameters Disciplines: Skilled Services 11/20/2022 Active 1 goal linked to scheduled/document ed intervention 1 goal intervention scheduled/document ed in this visit Risk for Falls Disciplines: Skilled Services 11/20/2022 Active 1 goal linked to scheduled/document ed intervention 1 goal intervention scheduled/document ed in this visit Pain Disciplines: Skilled Services 11/20/2022 Active 1 goal linked to scheduled/document ed intervention 1 goal intervention scheduled/document ed in this visit High Risk Medications Disciplines: Skilled Services 11/20/2022 Active 1 goal linked to scheduled/document ed intervention 2 goal interventions scheduled/document ed in this visit Discharge Disciplines: Skilled Services 11/20/2022 Active 1 goal linked to scheduled/document ed intervention 1 goal intervention scheduled/document ed in this visit PT Impaired muscle performance and/or ROM Disciplines: PT 11/20/2022 Active 1 goal linked to scheduled/document ed intervention 1 goal intervention scheduled/document ed in this visit PT Impaired mobility Disciplines: PT 11/20/2022 Active 1 goal linked to scheduled/document ed intervention 1 goal intervention scheduled/document ed in this visit PT Impaired gait Disciplines: PT 11/20/2022 Active 1 goal linked to scheduled/document ed intervention 1 goal intervention scheduled/document ed in this visit PT Orthopedic Condition Disciplines: PT 11/20/2022 Active 1 goal linked to scheduled/document ed intervention 4 goal interventions scheduled/document ed in this visit PT Learning Assessment Disciplines: PT 11/20/2022 Active 1 goal linked to scheduled/document ed intervention 1 goal intervention scheduled/document ed in this visit Goals Goal Associated Problem Outcome Goal Met? Visit Notes Patient/caregiver will demonstrate ability to obtain, store, identify and administer ordered medications, keep accurate medication list in home, and adhere to medication schedule Description: Patient/caregiver will demonstrate ability to obtain, store, identify and administer ordered medications, keep accurate medication list in home, and adhere to medication schedule by 01/18/23. Medication Education No Patient/caregiver will be able to identify and report symptoms of sepsis Description: Patient/caregiver will be able to identify signs/symptoms of sepsis infection and will verbalize actions to take if suspected by 01/18/23. Sepsis No Patient to maintain parameters within physician-specified ranges throughout certification period Physician Specific Parameters No Manage Risk for falls Description: Patient/caregiver will verbalize knowledge of individualized fall prevention strategies by 01/18/23. Risk for Falls No Manage Pain Description: Patient/caregiver will verbalize knowledge and understanding of appropriate techniques to control pain, including pain medication and non-pharmacological techniques. Patient will verbalize or demonstrate an acceptable level of pain as evidenced by a pain score of 3/10 and improvement in ability to perform activities of daily living to be achieved by 01/18/23. Pain No Patient/caregiver will teach back high risk medication side effect and precaution education High Risk Medications No Manage discharge planning Description: Patient/caregiver will verbalize understanding of ongoing discharge plan provided related to disease management, arrangements for outpatient and/or community services, obtaining medications, supplies, and DME, as needed throughout certification period. Discharge No Improved Muscle Performance and/or ROM Description: LTG: Patient will demonstrate improved muscle performance to meet functional goals as evidenced by ability to tolerate safe home activity, to be achieved by 12/14/22. LTG: Patient and/or caregiver will verbalize/demonstrate independence with home exercise program, to improve functional mobility, to be achieved by 12/14/22. LTG: Patient will demonstrate improved left knee active range of motion to at least 0-95 degrees, to meet functional goals, to be achieved by 12/14/22. PT Impaired muscle performance and/or ROM No Improved Transfers Description: STG: Patient will demonstrate safe transfers to/from bed, chair and couch independently, to be achieved by 11/30/22. LTG: Patient will demonstrate safe transfers to/from shower/tub and car independently, to be achieved by 12/14/22. PT Impaired mobility No Improved Gait Description: LTG: Patient will demonstrate improved gait ability as evidenced by ambulation at least 150 feet with least resistive device independently, to return to safe household ambulation, to be achieved by 12/14/22. PT Impaired gait No Manage Orthopedic Condition Description: Improve patient and/or caregiver understanding of post surgical and/or non-surgical orthopedic intervention management as evidenced by patient and/or caregiver able to verbalize, demonstrate, and teach back instruction, to be achieved by 12/14/22. PT Orthopedic Condition No Demonstrate understanding of education Description: Patient and/or caregiver will understand educational instruction to be achieved by 12/14/22. PT Learning Assessment No Interventions Intervention Associated Problem/Goal Status Variance Visit Notes Medication Education Description: Evaluate/instruct patient/caregiver on obtaining, storing, identifying and administering ordered medications as well as keeping accurate medication list in the home and adhereing to medication schedule Problem:Medication Education Goal:Patient/caregive r will demonstrate ability to obtain, store, identify and administer ordered medications, keep accurate medication list in home, and adhere to medication schedule Completed Patient instructed on importance of keeping accurate medication list in home and adhering to medication schedule. Risk of Sepsis Description: Patient is at risk for sepsis. Monitor closely for s/s of sepsis. Problem:Sepsis Goal:Patient/caregive r will be able to identify and report symptoms of sepsis Completed SPO2 Description: Notify Dr. Ambriz if pulse ox is <92% at rest. Problem:Physician Specific Parameters Goal:Patient to maintain parameters within physician-specified ranges throughout certification period Completed Instruct on individual fall risk factors and strategies to prevent falls and injuries caused by falls. Problem:Risk for Falls Goal:Manage Risk for falls Completed PT: Patient instructed on Managing Impaired Functional Mobility: Use assistive device(s): front wheeled walker Instruct on pain and instruct on strategies to control pain Problem:Pain Goal:Manage Pain Completed patient instructed on techniques to control pain including Pharmacological measures and Non-Pharmacological measures; positioning/elevation and use of thermal modalities, apply ice to affected area for the following prescribed frequency: several times/day. Opioids- educated on high risk medication Problem:High Risk Medications Goal:Patient/caregive r will teach back high risk medication side effect and precaution education Completed patient and caregiver educated on taking medication(s) as prescribed by provider. Do not stop medication or alter doses without speaking with your provider. Discuss medication effectiveness or side effect concerns with your provider and home care team. Only take opioids as prescribed, do not share your medications, and take proper precautions in storing and properly disposing of opioids once no longer needed. Possible side effects of opioid medication including sedation, decreased rate of breathing, and constipation. Report over sedation to prescribing provider and practice deep breathing techniques every hour while awake. Prevent constipation by increasing water and fiber intake, increasing activity as tolerated, and use stool softener(s) as prescribed. Antiplatelet- educated on high risk medication Problem:High Risk Medications Goal:Patient/caregive r will teach back high risk medication side effect and precaution education Completed patient and caregiver educated on taking medication(s) as prescribed by provider. Do not stop medication or alter doses without speaking with your provider. Discuss medication effectiveness or side effect concerns with your provider and home care team. Discuss all medications you are taking, even [id number] medicines, with your provider and pharmacist since many drugs can interact with antiplatelet medications. If you forget to take a dose, DO NOT take a double dose. Take the missed dose as soon as possible on the same day. DO NOT take a double dose the next day to make up for the missed dose. Watch for signs of abnormal or excessive bleeding and bruising (refer to Bleeding Precautions education). Call your health care provider right away if you suspect something is wrong. Instruct on ongoing discharge plan Problem:Discharge Goal:Manage discharge planning Completed Ongoing Discharge plan: Discharge plan discussed with patient including frequency and duration for home PT and plan for transition to: outpatient therapy. Physical Therapy Therapeutic Exercises Problem:PT Impaired muscle performance and/or ROM Goal:Improved Muscle Performance and/or ROM Completed patient instructed on strengthening and range of motion exercises including ankle pumps, quad and glut sets, hip abd and adduction, saq w/ manual assist and heel slides x's 10 each. seated heel slides x's 5 with verbal and tactile cues for correct form. patient instructed to perform home exercise program twice a day which included above exercises. Physical Therapy Transfer Training Problem:PT Impaired mobility Goal:Improved Transfers Completed Transfer training and instruction to patient on safe transfers to and from bed and chair with supervision and verbal cues for safety Physical Therapy Gait Training Problem:PT Impaired gait Goal:Improved Gait Completed Gait training and instruction to patient on safe ambulation with front wheeled walker for 3x's 40 feet with stand by assist, with verbal cues for corrections of gait deviations including heel to toe . Instruct on orthopedic precautions and weight bearing restrictions Description: Orthopedic precautions including left total knee: no knee flexed over pillow at rest and no kneeling. Weight bearing restrictions include: WBAT of involved extremity. Problem:PT Orthopedic Condition Goal:Manage Orthopedic Condition Completed patient instructed on orthopedic precautions. Instruct on management of edema Problem:PT Orthopedic Condition Goal:Manage Orthopedic Condition Completed Instruct patient on management of edema including elevation of LLE above the level of the heart and ice. Physical therapy to perform surgical incision/wound management Description: Removal of post-op dressing on 11/25-11/28/22. If no drainage is present, leave open to air; if drainage is present, cover with clean dressing and contact provider and PT manager of case management. Problem:PT Orthopedic Condition Goal:Manage Orthopedic Condition Completed Intervention completed this date. With patients consent, picture uploaded to chart. Instruct on self-management of post surgical and/or non-surgical orthopedic intervention Problem:PT Orthopedic Condition Goal:Manage Orthopedic Condition Completed patient and caregiver instructed on incision care: no lotions/creams or rubbing, signs and symptoms of infection, signs and symptoms of DVT/PE, instructed on when to call provider and instructed on when to call 911. Instruct and educate on knowledge deficits Problem:PT Learning Assessment Goal:Demonstrate understanding of education Completed patient verbalize and/or demonstrate understanding of physical therapy education including pain management, integumentary and incision/wound care management and home exercise program. Education methods include: verbal cues. Further education required to improve knowledge and compliance with home exercise program. 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 Problems Problem Description Start Date Status Goals Interve ntions Medication Education Disciplines: Skilled Services 11/20/2022 Active 1 goal linked to scheduled/document ed intervention 1 goal intervention scheduled/document ed in this visit Sepsis Disciplines: Skilled Services 11/20/2022 Active 1 goal linked to scheduled/document ed intervention 1 goal intervention scheduled/document ed in this visit Physician Specific Parameters Disciplines: Skilled Services 11/20/2022 Active 1 goal linked to scheduled/document ed intervention 1 goal intervention scheduled/document ed in this visit Risk for Falls Disciplines: Skilled Services 11/20/2022 Active 1 goal linked to scheduled/document ed intervention 1 goal intervention scheduled/document ed in this visit Pain Disciplines: Skilled Services 11/20/2022 Active 1 goal linked to scheduled/document ed intervention 1 goal intervention scheduled/document ed in this visit Discharge Disciplines: Skilled Services 11/20/2022 Active 1 goal linked to scheduled/document ed intervention 1 goal intervention scheduled/document ed in this visit PT Impaired muscle performance and/or ROM Disciplines: PT 11/20/2022 Active 1 goal linked to scheduled/document ed intervention 1 goal intervention scheduled/document ed in this visit PT Impaired gait Disciplines: PT 11/20/2022 Active 2 goals linked to scheduled/document ed interventions 2 goal interventions scheduled/document ed in this visit PT Orthopedic Condition Disciplines: PT 11/20/2022 Active 1 goal linked to scheduled/document ed intervention 2 goal interventions scheduled/document ed in this visit PT Learning Assessment Disciplines: PT 11/20/2022 Active 1 goal linked to scheduled/document ed intervention 1 goal intervention scheduled/document ed in this visit Goals Goal Associated Problem Outcome Goal Met? Visit Notes Patient/caregiver will demonstrate ability to obtain, store, identify and administer ordered medications, keep accurate medication list in home, and adhere to medication schedule Description: Patient/caregiver will demonstrate ability to obtain, store, identify and administer ordered medications, keep accurate medication list in home, and adhere to medication schedule by 01/18/23. Medication Education No Patient/caregiver will be able to identify and report symptoms of sepsis Description: Patient/caregiver will be able to identify signs/symptoms of sepsis infection and will verbalize actions to take if suspected by 01/18/23. Sepsis No Patient to maintain parameters within physician-specified ranges throughout certification period Physician Specific Parameters No Manage Risk for falls Description: Patient/caregiver will verbalize knowledge of individualized fall prevention strategies by 01/18/23. Risk for Falls No Manage Pain Description: Patient/caregiver will verbalize knowledge and understanding of appropriate techniques to control pain, including pain medication and non-pharmacological techniques. Patient will verbalize or demonstrate an acceptable level of pain as evidenced by a pain score of 3/10 and improvement in ability to perform activities of daily living to be achieved by 01/18/23. Pain No Manage discharge planning Description: Patient/caregiver will verbalize understanding of ongoing discharge plan provided related to disease management, arrangements for outpatient and/or community services, obtaining medications, supplies, and DME, as needed throughout certification period. Discharge No Improved Muscle Performance and/or ROM Description: LTG: Patient will demonstrate improved muscle performance to meet functional goals as evidenced by ability to tolerate safe home activity, to be achieved by 12/14/22. LTG: Patient and/or caregiver will verbalize/demonstrate independence with home exercise program, to improve functional mobility, to be achieved by 12/14/22. LTG: Patient will demonstrate improved left knee active range of motion to at least 0-95 degrees, to meet functional goals, to be achieved by 12/14/22. PT Impaired muscle performance and/or ROM No Improved Stair Climbing Description: LTG: Patient will demonstrate improved stair negotiation as evidenced by ascend/descend at least 3 steps with railing and without railing independently, to safely access all areas of the home, to be achieved by 12/14/22. PT Impaired gait No Improved Gait Description: LTG: Patient will demonstrate improved gait ability as evidenced by ambulation at least 150 feet with least resistive device independently, to return to safe household ambulation, to be achieved by 12/14/22. PT Impaired gait No Manage Orthopedic Condition Description: Improve patient and/or caregiver understanding of post surgical and/or non-surgical orthopedic intervention management as evidenced by patient and/or caregiver able to verbalize, demonstrate, and teach back instruction, to be achieved by 12/14/22. PT Orthopedic Condition No Demonstrate understanding of education Description: Patient and/or caregiver will understand educational instruction to be achieved by 12/14/22. PT Learning Assessment No Interventions Intervention Associated Problem/Goal Status Variance Visit Notes Medication Education Description: Evaluate/instruct patient/caregiver on obtaining, storing, identifying and administering ordered medications as well as keeping accurate medication list in the home and adhereing to medication schedule Problem:Medication Education Goal:Patient/caregi ariadne will demonstrate ability to obtain, store, identify and administer ordered medications, keep accurate medication list in home, and adhere to medication schedule Completed Patient instructed on importance of keeping accurate medication list in home and adhering to medication schedule. Risk of Sepsis Description: Patient is at risk for sepsis. Monitor closely for s/s of sepsis. Problem:Sepsis Goal:Patient/caregi ariadne will be able to identify and report symptoms of sepsis Completed SPO2 Description: Notify Dr. Ambriz if pulse ox is <92% at rest. Problem:Physician Specific Parameters Goal:Patient to maintain parameters within physician-specified ranges throughout certification period Completed Instruct on individual fall risk factors and strategies to prevent falls and injuries caused by falls. Problem:Risk for Falls Goal:Manage Risk for falls Completed PT: Patient and Caregiver instructed on Managing Impaired Functional Mobility: Use assistive device(s): front wheeled walker Instruct on pain and instruct on strategies to control pain Problem:Pain Goal:Manage Pain Completed patient and caregiver instructed on techniques to control pain including Pharmacological measures and Non-Pharmacological measures; positioning/elevatio n and use of thermal modalities, apply ice to affected area for the following prescribed frequency: prn. Instruct on ongoing discharge plan Problem:Discharge Goal:Manage discharge planning Completed Ongoing Discharge plan: Discharge plan discussed with patient including frequency and duration for home PT and plan for transition to: outpatient therapy. Physical Therapy Therapeutic Exercises Problem:PT Impaired muscle performance and/or ROM Goal:Improved Muscle Performance and/or ROM Completed patient and caregiver instructed on strengthening and range of motion exercises including ankle pumps, quad and glut sets, hip abd and add, saq and heel slides x's 10 each. supine ext hang x's 5min. standing heel raises and hamstring curls x's 10. step flexion stretch x's 5w/ 10sec hold, seated heel slides x's 10 with tactile, visual and written cues for correct form. patient instructed to perform home exercise program twice a day which included above exercises. Physical Therapy Stair Training Problem:PT Impaired gait Goal:Improved Stair Climbing Patient requested to defer to next visit Physical Therapy Gait Training Problem:PT Impaired gait Goal:Improved Gait Completed Gait training and instruction to patient on safe ambulation with front wheeled walker for 3x's 40 feet with supervision, with verbal cues for corrections of gait deviations including heel to toe pattern and to avoid circumduction of L hip. Instruct on management of edema Problem:PT Orthopedic Condition Goal:Manage Orthopedic Condition Completed Instruct patient on management of edema including elevation of LLE above the level of the heart and ice. Instruct on self-management of post surgical and/or non-surgical orthopedic intervention Problem:PT Orthopedic Condition Goal:Manage Orthopedic Condition Completed patient instructed on signs and symptoms of infection, signs and symptoms of DVT/PE, instructed on when to call provider and instructed on when to call 911. Instruct and educate on knowledge deficits Problem:PT Learning Assessment Goal:Demonstrate understanding of education Completed patient and caregiver verbalize and/or demonstrate understanding of physical therapy education including home exercise program. Education methods include: verbal cues, written instructions and visual cues. Further education required to improve knowledge and compliance with home exercise program. 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 Problems Problem Description Start Date Status Goals Interve ntions Medication Education Disciplines: Skilled Services 11/20/2022 Active 1 goal linked to scheduled/document ed intervention 1 goal intervention scheduled/document ed in this visit Sepsis Disciplines: Skilled Services 11/20/2022 Active 1 goal linked to scheduled/document ed intervention 1 goal intervention scheduled/document ed in this visit Physician Specific Parameters Disciplines: Skilled Services 11/20/2022 Active 1 goal linked to scheduled/document ed intervention 1 goal intervention scheduled/document ed in this visit Risk for Falls Disciplines: Skilled Services 11/20/2022 Active 1 goal linked to scheduled/document ed intervention 1 goal intervention scheduled/document ed in this visit Pain Disciplines: Skilled Services 11/20/2022 Active 1 goal linked to scheduled/document ed intervention 1 goal intervention scheduled/document ed in this visit Discharge Disciplines: Skilled Services 11/20/2022 Active 1 goal linked to scheduled/document ed intervention 1 goal intervention scheduled/document ed in this visit PT Impaired muscle performance and/or ROM Disciplines: PT 11/20/2022 Active 1 goal linked to scheduled/document ed intervention 1 goal intervention scheduled/document ed in this visit PT Impaired gait Disciplines: PT 11/20/2022 Active 2 goals linked to scheduled/document ed interventions 2 goal interventions scheduled/document ed in this visit PT Impaired balance Disciplines: PT 11/20/2022 Active 1 goal linked to scheduled/document ed intervention 1 goal intervention scheduled/document ed in this visit PT Orthopedic Condition Disciplines: PT 11/20/2022 Active 1 goal linked to scheduled/document ed intervention 3 goal interventions scheduled/document ed in this visit PT Learning Assessment Disciplines: PT 11/20/2022 Active 1 goal linked to scheduled/document ed intervention 1 goal intervention scheduled/document ed in this visit Goals Goal Associated Problem Outcome Goal Met? Visit Notes Patient/caregiver will demonstrate ability to obtain, store, identify and administer ordered medications, keep accurate medication list in home, and adhere to medication schedule Description: Patient/caregiver will demonstrate ability to obtain, store, identify and administer ordered medications, keep accurate medication list in home, and adhere to medication schedule by 01/18/23. Medication Education No Patient/caregiver will be able to identify and report symptoms of sepsis Description: Patient/caregiver will be able to identify signs/symptoms of sepsis infection and will verbalize actions to take if suspected by 01/18/23. Sepsis No Patient to maintain parameters within physician-specified ranges throughout certification period Physician Specific Parameters No Manage Risk for falls Description: Patient/caregiver will verbalize knowledge of individualized fall prevention strategies by 01/18/23. Risk for Falls No Manage Pain Description: Patient/caregiver will verbalize knowledge and understanding of appropriate techniques to control pain, including pain medication and non-pharmacological techniques. Patient will verbalize or demonstrate an acceptable level of pain as evidenced by a pain score of 3/10 and improvement in ability to perform activities of daily living to be achieved by 01/18/23. Pain No Manage discharge planning Description: Patient/caregiver will verbalize understanding of ongoing discharge plan provided related to disease management, arrangements for outpatient and/or community services, obtaining medications, supplies, and DME, as needed throughout certification period. Discharge No Improved Muscle Performance and/or ROM Description: LTG: Patient will demonstrate improved muscle performance to meet functional goals as evidenced by ability to tolerate safe home activity, to be achieved by 12/14/22. LTG: Patient and/or caregiver will verbalize/demonstrate independence with home exercise program, to improve functional mobility, to be achieved by 12/14/22. LTG: Patient will demonstrate improved left knee active range of motion to at least 0-95 degrees, to meet functional goals, to be achieved by 12/14/22. PT Impaired muscle performance and/or ROM No Improved Stair Climbing Description: LTG: Patient will demonstrate improved stair negotiation as evidenced by ascend/descend at least 3 steps with railing and without railing independently, to safely access all areas of the home, to be achieved by 12/14/22. PT Impaired gait No Improved Gait Description: LTG: Patient will demonstrate improved gait ability as evidenced by ambulation at least 150 feet with least resistive device independently, to return to safe household ambulation, to be achieved by 12/14/22. PT Impaired gait No Improved Balance Description: LTG: Patient will demonstrate improved standing balance to meet functional goals as evidenced by safe home ambulation with least resistive device to be achieved by 12/14/22. PT Impaired balance No Manage Orthopedic Condition Description: Improve patient and/or caregiver understanding of post surgical and/or non-surgical orthopedic intervention management as evidenced by patient and/or caregiver able to verbalize, demonstrate, and teach back instruction, to be achieved by 12/14/22. PT Orthopedic Condition No Demonstrate understanding of education Description: Patient and/or caregiver will understand educational instruction to be achieved by 12/14/22. PT Learning Assessment No Interventions Intervention Associated Problem/Goal Status Variance Visit Notes Medication Education Description: Evaluate/instruct patient/caregiver on obtaining, storing, identifying and administering ordered medications as well as keeping accurate medication list in the home and adhereing to medication schedule Problem:Medication Education Goal:Patient/caregi airadne will demonstrate ability to obtain, store, identify and administer ordered medications, keep accurate medication list in home, and adhere to medication schedule Completed Patient and Caregiver instructed on importance of keeping accurate medication list in home and adhering to medication schedule. Risk of Sepsis Description: Patient is at risk for sepsis. Monitor closely for s/s of sepsis. Problem:Sepsis Goal:Patient/caregi ariadne will be able to identify and report symptoms of sepsis Completed SPO2 Description: Notify Dr. Ambriz if pulse ox is <92% at rest. Problem:Physician Specific Parameters Goal:Patient to maintain parameters within physician-specified ranges throughout certification period Completed Instruct on individual fall risk factors and strategies to prevent falls and injuries caused by falls. Problem:Risk for Falls Goal:Manage Risk for falls Completed PT: Patient and Caregiver instructed on Managing Impaired Functional Mobility: Use assistive device(s): front wheeled walker Instruct on pain and instruct on strategies to control pain Problem:Pain Goal:Manage Pain Completed patient instructed on techniques to control pain including Pharmacological measures and Non-Pharmacological measures; positioning/elevatio n and use of thermal modalities, apply ice to affected area for the following prescribed frequency: several times/day. Instruct on ongoing discharge plan Problem:Discharge Goal:Manage discharge planning Completed Ongoing Discharge plan: Discharge plan discussed with patient including frequency and duration for home PT and plan for transition to: outpatient therapy. Physical Therapy Therapeutic Exercises Problem:PT Impaired muscle performance and/or ROM Goal:Improved Muscle Performance and/or ROM Completed patient and caregiver instructed on strengthening and range of motion exercises including page pumps, quad and glut sets, hip abd and adduction, saq and heel slides x's 10 each. standing heel raises, hamstring curls x's 10 each. supine ext hang x's 5min. seated heel slides x's 5 step flexion stretch x's 5 w/ 10sec hold with verbal and visual cues for correct form. patient instructed to perform home exercise program twice a day which included above exercises. Physical Therapy Stair Training Problem:PT Impaired gait Goal:Improved Stair Climbing Patient requested to defer to next visit Physical Therapy Gait Training Problem:PT Impaired gait Goal:Improved Gait Completed Gait training and instruction to patient on safe ambulation with front wheeled walker for x's 40 and 2x's 60 feet with supervision, with verbal cues for corrections of gait deviations including heel to toe . Physical Therapy Balance Training Problem:PT Impaired balance Goal:Improved Balance Completed Developed, implemented, and instructed patient on standing balance exercises including standing exercises. Instruct on orthopedic precautions and weight bearing restrictions Description: Orthopedic precautions including left total knee: no knee flexed over pillow at rest and no kneeling. Weight bearing restrictions include: WBAT of involved extremity. Problem:PT Orthopedic Condition Goal:Manage Orthopedic Condition Completed patient and caregiver instructed on orthopedic precautions. Instruct on management of edema Problem:PT Orthopedic Condition Goal:Manage Orthopedic Condition Completed Instruct patient on management of edema including elevation of LLE above the level of the heart and ice. Instruct on self-management of post surgical and/or non-surgical orthopedic intervention Problem:PT Orthopedic Condition Goal:Manage Orthopedic Condition Completed patient and caregiver instructed on signs and symptoms of infection, signs and symptoms of DVT/PE, instructed on when to call provider and instructed on when to call 911. Instruct and educate on knowledge deficits Problem:PT Learning Assessment Goal:Demonstrate understanding of education Completed patient verbalize and/or demonstrate understanding of physical therapy education including pain management and home exercise program. Education methods include: verbal cues. Further education required to improve knowledge and compliance with home exercise program. 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 Problems Problem Description Start Date Status Goals Interve ntions Medication Education Disciplines: Skilled Services 11/20/2022 Active 1 goal linked to scheduled/document ed intervention 1 goal intervention scheduled/document ed in this visit Sepsis Disciplines: Skilled Services 11/20/2022 Active 1 goal linked to scheduled/document ed intervention 1 goal intervention scheduled/document ed in this visit Physician Specific Parameters Disciplines: Skilled Services 11/20/2022 Active 1 goal linked to scheduled/document ed intervention 1 goal intervention scheduled/document ed in this visit Risk for Falls Disciplines: Skilled Services 11/20/2022 Active 1 goal linked to scheduled/document ed intervention 1 goal intervention scheduled/document ed in this visit Pain Disciplines: Skilled Services 11/20/2022 Active 1 goal linked to scheduled/document ed intervention 1 goal intervention scheduled/document ed in this visit High Risk Medications Disciplines: Skilled Services 11/20/2022 Active 1 goal linked to scheduled/document ed intervention 1 goal intervention scheduled/document ed in this visit Discharge Disciplines: Skilled Services 11/20/2022 Active 1 goal linked to scheduled/document ed intervention 1 goal intervention scheduled/document ed in this visit PT Impaired muscle performance and/or ROM Disciplines: PT 11/20/2022 Active 1 goal linked to scheduled/document ed intervention 1 goal intervention scheduled/document ed in this visit PT Impaired mobility Disciplines: PT 11/20/2022 Active 1 goal linked to scheduled/document ed intervention 1 goal intervention scheduled/document ed in this visit PT Impaired gait Disciplines: PT 11/20/2022 Active 2 goals linked to scheduled/document ed interventions 2 goal interventions scheduled/document ed in this visit PT Orthopedic Condition Disciplines: PT 11/20/2022 Active 1 goal linked to scheduled/document ed intervention 3 goal interventions scheduled/document ed in this visit PT Learning Assessment Disciplines: PT 11/20/2022 Active 1 goal linked to scheduled/document ed intervention 1 goal intervention scheduled/document ed in this visit Goals Goal Associated Problem Outcome Goal Met? Visit Notes Patient/caregiver will demonstrate ability to obtain, store, identify and administer ordered medications, keep accurate medication list in home, and adhere to medication schedule Description: Patient/caregiver will demonstrate ability to obtain, store, identify and administer ordered medications, keep accurate medication list in home, and adhere to medication schedule by 01/18/23. Medication Education No Patient/caregiver will be able to identify and report symptoms of sepsis Description: Patient/caregiver will be able to identify signs/symptoms of sepsis infection and will verbalize actions to take if suspected by 01/18/23. Sepsis No Patient to maintain parameters within physician-specified ranges throughout certification period Physician Specific Parameters No Manage Risk for falls Description: Patient/caregiver will verbalize knowledge of individualized fall prevention strategies by 01/18/23. Risk for Falls No Manage Pain Description: Patient/caregiver will verbalize knowledge and understanding of appropriate techniques to control pain, including pain medication and non-pharmacological techniques. Patient will verbalize or demonstrate an acceptable level of pain as evidenced by a pain score of 3/10 and improvement in ability to perform activities of daily living to be achieved by 01/18/23. Pain No Patient/caregiver will teach back high risk medication side effect and precaution education High Risk Medications No Manage discharge planning Description: Patient/caregiver will verbalize understanding of ongoing discharge plan provided related to disease management, arrangements for outpatient and/or community services, obtaining medications, supplies, and DME, as needed throughout certification period. Discharge No Improved Muscle Performance and/or ROM Description: LTG: Patient will demonstrate improved muscle performance to meet functional goals as evidenced by ability to tolerate safe home activity, to be achieved by 12/14/22. LTG: Patient and/or caregiver will verbalize/demonstrate independence with home exercise program, to improve functional mobility, to be achieved by 12/14/22. LTG: Patient will demonstrate improved left knee active range of motion to at least 0-95 degrees, to meet functional goals, to be achieved by 12/14/22. PT Impaired muscle performance and/or ROM No Improved Transfers Description: STG: Patient will demonstrate safe transfers to/from bed, chair and couch independently, to be achieved by 11/30/22. LTG: Patient will demonstrate safe transfers to/from shower/tub and car independently, to be achieved by 12/14/22. PT Impaired mobility No Improved Stair Climbing Description: LTG: Patient will demonstrate improved stair negotiation as evidenced by ascend/descend at least 3 steps with railing and without railing independently, to safely access all areas of the home, to be achieved by 12/14/22. PT Impaired gait No Improved Gait Description: LTG: Patient will demonstrate improved gait ability as evidenced by ambulation at least 150 feet with least resistive device independently, to return to safe household ambulation, to be achieved by 12/14/22. PT Impaired gait No Manage Orthopedic Condition Description: Improve patient and/or caregiver understanding of post surgical and/or non-surgical orthopedic intervention management as evidenced by patient and/or caregiver able to verbalize, demonstrate, and teach back instruction, to be achieved by 12/14/22. PT Orthopedic Condition No Demonstrate understanding of education Description: Patient and/or caregiver will understand educational instruction to be achieved by 12/14/22. PT Learning Assessment No Interventions Intervention Associated Problem/Goal Status Variance Visit Notes Medication Education Description: Evaluate/instruct patient/caregiver on obtaining, storing, identifying and administering ordered medications as well as keeping accurate medication list in the home and adhereing to medication schedule Problem:Medication Education Goal:Patient/caregive r will demonstrate ability to obtain, store, identify and administer ordered medications, keep accurate medication list in home, and adhere to medication schedule Completed Patient instructed on importance of keeping accurate medication list in home and adhering to medication schedule. Risk of Sepsis Description: Patient is at risk for sepsis. Monitor closely for s/s of sepsis. Problem:Sepsis Goal:Patient/caregive r will be able to identify and report symptoms of sepsis Completed SPO2 Description: Notify Dr. Ambriz if pulse ox is <92% at rest. Problem:Physician Specific Parameters Goal:Patient to maintain parameters within physician-specified ranges throughout certification period Completed Instruct on individual fall risk factors and strategies to prevent falls and injuries caused by falls. Problem:Risk for Falls Goal:Manage Risk for falls Completed PT: Patient instructed on Managing Impaired Functional Mobility: Use assistive device(s): front wheeled walker Instruct on pain and instruct on strategies to control pain Problem:Pain Goal:Manage Pain Completed patient instructed on techniques to control pain including Pharmacological measures and Non-Pharmacological measures; positioning/elevation and use of thermal modalities, apply ice to affected area for the following prescribed frequency: prn. Opioids- educated on high risk medication Problem:High Risk Medications Goal:Patient/caregive r will teach back high risk medication side effect and precaution education Completed patient educated on taking medication(s) as prescribed by provider. Do not stop medication or alter doses without speaking with your provider. Discuss medication effectiveness or side effect concerns with your provider and home care team. Only take opioids as prescribed, do not share your medications, and take proper precautions in storing and properly disposing of opioids once no longer needed. Possible side effects of opioid medication including sedation, decreased rate of breathing, and constipation. Report over sedation to prescribing provider and practice deep breathing techniques every hour while awake. Prevent constipation by increasing water and fiber intake, increasing activity as tolerated, and use stool softener(s) as prescribed. Instruct on ongoing discharge plan Problem:Discharge Goal:Manage discharge planning Completed Ongoing Discharge plan: Discharge plan discussed with patient including frequency and duration for home PT and plan for transition to: outpatient therapy. Physical Therapy Therapeutic Exercises Problem:PT Impaired muscle performance and/or ROM Goal:Improved Muscle Performance and/or ROM Completed patient instructed on strengthening and range of motion exercises including ankle pumps, quad and glut sets, hip abd and add, saq and heel slides x's 12 each. standing heel raises, hamstring curls and hip/knee flexion x's 10each. step flexion stretch x's 5w/ 10sec hold, seated heel slides x's 5 w/ 10sec hold and self over pressure with verbal and visual cues for correct form . patient instructed to perform home exercise program twice a day which included above exercises. Physical Therapy Transfer Training Problem:PT Impaired mobility Goal:Improved Transfers Completed Transfer training and instruction to patient on safe transfers to and from bed, chair and couch with independent Physical Therapy Stair Training Problem:PT Impaired gait Goal:Improved Stair Climbing Completed Stair training and instruction to patient on safe stair climbing, ascend/descend 4 steps, with railing and with cane with stand by assist and verbal cues for correct step pattern/ and cane placement . Physical Therapy Gait Training Problem:PT Impaired gait Goal:Improved Gait Completed Gait training and instruction to patient on safe ambulation with front wheeled walker for 40, 60 and 40 feet with stand by assist, with verbal and visual cues for corrections of gait deviations including heel to toe . Instruct on orthopedic precautions and weight bearing restrictions Description: Orthopedic precautions including left total knee: no knee flexed over pillow at rest and no kneeling. Weight bearing restrictions include: WBAT of involved extremity. Problem:PT Orthopedic Condition Goal:Manage Orthopedic Condition Completed patient instructed on orthopedic precautions. Instruct on management of edema Problem:PT Orthopedic Condition Goal:Manage Orthopedic Condition Completed Instruct patient on management of edema including elevation of LLE above the level of the heart and ice. Instruct on self-management of post surgical and/or non-surgical orthopedic intervention Problem:PT Orthopedic Condition Goal:Manage Orthopedic Condition Completed patient instructed on signs and symptoms of infection, signs and symptoms of DVT/PE, instructed on when to call provider and instructed on when to call 911. Instruct and educate on knowledge deficits Problem:PT Learning Assessment Goal:Demonstrate understanding of education Completed patient verbalize and/or demonstrate understanding of physical therapy education including home exercise program. Education methods include: verbal cues. Further education required to improve knowledge and compliance with home exercise program. 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 Problems Problem Description Start Date Status Goals Interve ntions Medication Education Disciplines: Skilled Services 11/20/2022 Active 1 goal linked to scheduled/document ed intervention 1 goal intervention scheduled/document ed in this visit Sepsis Disciplines: Skilled Services 11/20/2022 Active 1 goal linked to scheduled/document ed intervention 1 goal intervention scheduled/document ed in this visit Physician Specific Parameters Disciplines: Skilled Services 11/20/2022 Active 1 goal linked to scheduled/document ed intervention 1 goal intervention scheduled/document ed in this visit Risk for Falls Disciplines: Skilled Services 11/20/2022 Active 1 goal linked to scheduled/document ed intervention 1 goal intervention scheduled/document ed in this visit Pain Disciplines: Skilled Services 11/20/2022 Active 1 goal linked to scheduled/document ed intervention 1 goal intervention scheduled/document ed in this visit Discharge Disciplines: Skilled Services 11/20/2022 Active 1 goal linked to scheduled/document ed intervention 1 goal intervention scheduled/document ed in this visit PT Impaired muscle performance and/or ROM Disciplines: PT 11/20/2022 Active 1 goal linked to scheduled/document ed intervention 1 goal intervention scheduled/document ed in this visit PT Impaired gait Disciplines: PT 11/20/2022 Active 1 goal linked to scheduled/document ed intervention 1 goal intervention scheduled/document ed in this visit PT Impaired balance Disciplines: PT 11/20/2022 Active 1 goal linked to scheduled/document ed intervention 1 goal intervention scheduled/document ed in this visit PT Orthopedic Condition Disciplines: PT 11/20/2022 Active 1 goal linked to scheduled/document ed intervention 2 goal interventions scheduled/document ed in this visit PT Learning Assessment Disciplines: PT 11/20/2022 Active 1 goal linked to scheduled/document ed intervention 1 goal intervention scheduled/document ed in this visit Goals Goal Associated Problem Outcome Goal Met? Visit Notes Patient/caregiver will demonstrate ability to obtain, store, identify and administer ordered medications, keep accurate medication list in home, and adhere to medication schedule Description: Patient/caregiver will demonstrate ability to obtain, store, identify and administer ordered medications, keep accurate medication list in home, and adhere to medication schedule by 01/18/23. Medication Education No Patient/caregiver will be able to identify and report symptoms of sepsis Description: Patient/caregiver will be able to identify signs/symptoms of sepsis infection and will verbalize actions to take if suspected by 01/18/23. Sepsis No Patient to maintain parameters within physician-specified ranges throughout certification period Physician Specific Parameters No Manage Risk for falls Description: Patient/caregiver will verbalize knowledge of individualized fall prevention strategies by 01/18/23. Risk for Falls No Manage Pain Description: Patient/caregiver will verbalize knowledge and understanding of appropriate techniques to control pain, including pain medication and non-pharmacological techniques. Patient will verbalize or demonstrate an acceptable level of pain as evidenced by a pain score of 3/10 and improvement in ability to perform activities of daily living to be achieved by 01/18/23. Pain No Manage discharge planning Description: Patient/caregiver will verbalize understanding of ongoing discharge plan provided related to disease management, arrangements for outpatient and/or community services, obtaining medications, supplies, and DME, as needed throughout certification period. Discharge No Improved Muscle Performance and/or ROM Description: LTG: Patient will demonstrate improved muscle performance to meet functional goals as evidenced by ability to tolerate safe home activity, to be achieved by 12/14/22. LTG: Patient and/or caregiver will verbalize/demonstrate independence with home exercise program, to improve functional mobility, to be achieved by 12/14/22. LTG: Patient will demonstrate improved left knee active range of motion to at least 0-95 degrees, to meet functional goals, to be achieved by 12/14/22. PT Impaired muscle performance and/or ROM No Improved Gait Description: LTG: Patient will demonstrate improved gait ability as evidenced by ambulation at least 150 feet with least resistive device independently, to return to safe household ambulation, to be achieved by 12/14/22. PT Impaired gait No Improved Balance Description: LTG: Patient will demonstrate improved standing balance to meet functional goals as evidenced by safe home ambulation with least resistive device to be achieved by 12/14/22. PT Impaired balance No Manage Orthopedic Condition Description: Improve patient and/or caregiver understanding of post surgical and/or non-surgical orthopedic intervention management as evidenced by patient and/or caregiver able to verbalize, demonstrate, and teach back instruction, to be achieved by 12/14/22. PT Orthopedic Condition No Demonstrate understanding of education Description: Patient and/or caregiver will understand educational instruction to be achieved by 12/14/22. PT Learning Assessment No Interventions Intervention Associated Problem/Goal Status Variance Visit Notes Medication Education Description: Evaluate/instruct patient/caregiver on obtaining, storing, identifying and administering ordered medications as well as keeping accurate medication list in the home and adhereing to medication schedule Problem:Medication Education Goal:Patient/caregive r will demonstrate ability to obtain, store, identify and administer ordered medications, keep accurate medication list in home, and adhere to medication schedule Completed Patient instructed on importance of keeping accurate medication list in home and adhering to medication schedule. Risk of Sepsis Description: Patient is at risk for sepsis. Monitor closely for s/s of sepsis. Problem:Sepsis Goal:Patient/caregive r will be able to identify and report symptoms of sepsis Completed SPO2 Description: Notify Dr. Ambriz if pulse ox is <92% at rest. Problem:Physician Specific Parameters Goal:Patient to maintain parameters within physician-specified ranges throughout certification period Completed Instruct on individual fall risk factors and strategies to prevent falls and injuries caused by falls. Problem:Risk for Falls Goal:Manage Risk for falls Completed PT: Patient instructed on Managing Impaired Functional Mobility: Use assistive device(s): front wheeled walker and single point cane Instruct on pain and instruct on strategies to control pain Problem:Pain Goal:Manage Pain Completed patient instructed on techniques to control pain including Pharmacological measures and Non-Pharmacological measures; positioning/elevation and use of thermal modalities, apply ice to affected area for the following prescribed frequency: prn. Instruct on ongoing discharge plan Problem:Discharge Goal:Manage discharge planning Completed Ongoing Discharge plan: Discharge plan discussed with patient including frequency and duration for home PT and plan for transition to: outpatient therapy. Physical Therapy Therapeutic Exercises Problem:PT Impaired muscle performance and/or ROM Goal:Improved Muscle Performance and/or ROM Completed patient instructed on strengthening and range of motion exercises including ankle pumps, quad and glut sets, hip abd and add, saq and heel slides x's 12 each. supine ext hang x's5min. standing heel raises, hip flexion and hamstring curls x's 12 each. step flexion stretch and seated heel slides x's 5 each w/ 10sec hold with verbal and visual cues for correct form. patient instructed to perform home exercise program twice a day which included above exercises. Physical Therapy Gait Training Problem:PT Impaired gait Goal:Improved Gait Completed Gait training and instruction to patient on safe ambulation with front wheeled walker for 50 feet each with supervision, with verbal and visual cues for corrections of gait deviations including heel to toe pattern Physical Therapy Balance Training Problem:PT Impaired balance Goal:Improved Balance Completed Developed, implemented, and instructed patient on standing balance exercises including standing exercises and cane training. Instruct on management of edema Problem:PT Orthopedic Condition Goal:Manage Orthopedic Condition Completed Instruct patient on management of edema including elevation of LLE above the level of the heart and ice. Instruct on self-management of post surgical and/or non-surgical orthopedic intervention Problem:PT Orthopedic Condition Goal:Manage Orthopedic Condition Completed patient instructed on signs and symptoms of infection, signs and symptoms of DVT/PE, instructed on when to call provider and instructed on when to call 911. Instruct and educate on knowledge deficits Problem:PT Learning Assessment Goal:Demonstrate understanding of education Completed patient verbalize and/or demonstrate understanding of physical therapy education including pain management and home exercise program. Education methods include: verbal cues. Further education required to improve knowledge and compliance with home exercise program. [facility] Visit Details Visit Type -PT AGENCY DC W V ISIT Discipline -Physical Therapy Problems Problem Description Start Date Status Goals Interve ntions Medication Education Disciplines: Skilled Services 11/20/2022 Resolved on 12/10/2022 1 goal linked to scheduled/document ed intervention 1 goal intervention scheduled/document ed in this visit Sepsis Disciplines: Skilled Services 11/20/2022 Resolved on 12/10/2022 1 goal linked to scheduled/document ed intervention 1 goal intervention scheduled/document ed in this visit Physician Specific Parameters Disciplines: Skilled Services 11/20/2022 Resolved on 12/10/2022 1 goal linked to scheduled/document ed intervention 1 goal intervention scheduled/document ed in this visit Risk for Falls Disciplines: Skilled Services 11/20/2022 Resolved on 12/10/2022 1 goal linked to scheduled/document ed intervention 1 goal intervention scheduled/document ed in this visit Pain Disciplines: Skilled Services 11/20/2022 Resolved on 12/10/2022 1 goal linked to scheduled/document ed intervention 1 goal intervention scheduled/document ed in this visit Nutrition/Hydrat ion Disciplines: Skilled Services 11/20/2022 Resolved on 12/10/2022 1 goal linked to scheduled/document ed intervention 1 goal intervention scheduled/document ed in this visit High Risk Medications Disciplines: Skilled Services 11/20/2022 Resolved on 12/10/2022 1 goal linked to scheduled/document ed intervention Discharge Disciplines: Skilled Services 11/20/2022 Resolved on 12/10/2022 1 goal linked to scheduled/document ed intervention 1 goal intervention scheduled/document ed in this visit PT Impaired muscle performance and/or ROM Disciplines: PT 11/20/2022 Resolved on 12/10/2022 1 goal linked to scheduled/document ed intervention 1 goal intervention scheduled/document ed in this visit PT Impaired mobility Disciplines: PT 11/20/2022 Resolved on 12/10/2022 2 goals linked to scheduled/document ed interventions 2 goal interventions scheduled/document ed in this visit PT Impaired gait Disciplines: PT 11/20/2022 Resolved on 12/10/2022 2 goals linked to scheduled/document ed interventions 2 goal interventions scheduled/document ed in this visit PT Impaired balance Disciplines: PT 11/20/2022 Resolved on 12/10/2022 1 goal linked to scheduled/document ed intervention 1 goal intervention scheduled/document ed in this visit PT Orthopedic Condition Disciplines: PT 11/20/2022 Resolved on 12/10/2022 1 goal linked to scheduled/document ed intervention 3 goal interventions scheduled/document ed in this visit PT Learning Assessment Disciplines: PT 11/20/2022 Resolved on 12/10/2022 1 goal linked to scheduled/document ed intervention 1 goal intervention scheduled/document ed in this visit Goals Goal Associated Problem Outcome Goal Met? Visit Notes Patient/caregiver will demonstrate ability to obtain, store, identify and administer ordered medications, keep accurate medication list in home, and adhere to medication schedule Description: Patient/caregiver will demonstrate ability to obtain, store, identify and administer ordered medications, keep accurate medication list in home, and adhere to medication schedule by 01/18/23. Medication Education Completed Yes Patient/caregiver will be able to identify and report symptoms of sepsis Description: Patient/caregiver will be able to identify signs/symptoms of sepsis infection and will verbalize actions to take if suspected by 01/18/23. Sepsis Completed Yes Patient to maintain parameters within physician-specified ranges throughout certification period Physician Specific Parameters Completed Yes Manage Risk for falls Description: Patient/caregiver will verbalize knowledge of individualized fall prevention strategies by 01/18/23. Risk for Falls Completed Yes Manage Pain Description: Patient/caregiver will verbalize knowledge and understanding of appropriate techniques to control pain, including pain medication and non-pharmacological techniques. Patient will verbalize or demonstrate an acceptable level of pain as evidenced by a pain score of 3/10 and improvement in ability to perform activities of daily living to be achieved by 01/18/23. Pain Completed Yes Manage Nutrition/Hydration Description: Patient/caregiver will verbalize/demonstrate knowledge of prescribed diet and/or healthy nutrition to be achieved by 01/18/23. Nutrition/Hydration Completed Yes Patient/caregiver will teach back high risk medication side effect and precaution education High Risk Medications Completed Yes Manage discharge planning Description: Patient/caregiver will verbalize understanding of ongoing discharge plan provided related to disease management, arrangements for outpatient and/or community services, obtaining medications, supplies, and DME, as needed throughout certification period. Discharge Completed Yes Improved Muscle Performance and/or ROM Description: LTG: Patient will demonstrate improved muscle performance to meet functional goals as evidenced by ability to tolerate safe home activity, to be achieved by 12/14/22. LTG: Patient and/or caregiver will verbalize/demonstrate independence with home exercise program, to improve functional mobility, to be achieved by 12/14/22. LTG: Patient will demonstrate improved left knee active range of motion to at least 0-95 degrees, to meet functional goals, to be achieved by 12/14/22. PT Impaired muscle performance and/or ROM Completed Yes Improved Transfers Description: STG: Patient will demonstrate safe transfers to/from bed, chair and couch independently, to be achieved by 11/30/22. LTG: Patient will demonstrate safe transfers to/from shower/tub and car independently, to be achieved by 12/14/22. PT Impaired mobility Completed Yes Improved Bed Mobility Description: STG: Patient will demonstrate improved bed mobility independently to be achieved by 11/30/22. PT Impaired mobility Completed Yes Improved Stair Climbing Description: LTG: Patient will demonstrate improved stair negotiation as evidenced by ascend/descend at least 3 steps with railing and without railing independently, to safely access all areas of the home, to be achieved by 12/14/22. PT Impaired gait Completed Yes Improved Gait Description: LTG: Patient will demonstrate improved gait ability as evidenced by ambulation at least 150 feet with least resistive device independently, to return to safe household ambulation, to be achieved by 12/14/22. PT Impaired gait Completed Yes Improved Balance Description: LTG: Patient will demonstrate improved standing balance to meet functional goals as evidenced by safe home ambulation with least resistive device to be achieved by 12/14/22. PT Impaired balance Completed Yes Manage Orthopedic Condition Description: Improve patient and/or caregiver understanding of post surgical and/or non-surgical orthopedic intervention management as evidenced by patient and/or caregiver able to verbalize, demonstrate, and teach back instruction, to be achieved by 12/14/22. PT Orthopedic Condition Completed Yes Demonstrate understanding of education Description: Patient and/or caregiver will understand educational instruction to be achieved by 12/14/22. PT Learning Assessment Completed Yes Interventions Intervention Associated Problem/Goal Status Variance Visit Notes Medication Education Description: Evaluate/instruct patient/caregiver on obtaining, storing, identifying and administering ordered medications as well as keeping accurate medication list in the home and adhereing to medication schedule Problem:Medication Education Goal:Patient/caregive r will demonstrate ability to obtain, store, identify and administer ordered medications, keep accurate medication list in home, and adhere to medication schedule Completed Patient instructed on importance of keeping accurate medication list in home and adhering to medication schedule. Risk of Sepsis Description: Patient is at risk for sepsis. Monitor closely for s/s of sepsis. Problem:Sepsis Goal:Patient/caregive r will be able to identify and report symptoms of sepsis Completed SPO2 Description: Notify Dr. Ambriz if pulse ox is <92% at rest. Problem:Physician Specific Parameters Goal:Patient to maintain parameters within physician-specified ranges throughout certification period Completed Instruct on individual fall risk factors and strategies to prevent falls and injuries caused by falls. Problem:Risk for Falls Goal:Manage Risk for falls Completed PT: Patient instructed on Eliminating Environmental Hazards: Keep pathways clear, Keep pets out of pathways, Remove unsafe rugs and Move furniture from pathways Managing Impaired Functional Mobility: Use assistive device(s): single point cane Managing Pain Instruct on pain and instruct on strategies to control pain Problem:Pain Goal:Manage Pain Completed patient instructed on techniques to control pain including Pharmacological measures and Non-Pharmacological measures; rest and positioning/elevation. Define patient s appetite/hydration status and implement strategies to improve compliance with prescribed diet and/or healthy nutrition. Problem:Nutrition/Hyd ration Goal:Manage Nutrition/Hydration Completed instructed patient on implementing strategies to comply with healthy nutrition and adequate hydration Instruct on final discharge plan and deliver discharge instructions Problem:Discharge Goal:Manage discharge planning Completed Delivered Discharge plan: Discharge plan discussed with patient for plan for transition to: outpatient therapy Physical Therapy Therapeutic Exercises Problem:PT Impaired muscle performance and/or ROM Goal:Improved Muscle Performance and/or ROM Completed patient instructed on strengthening and range of motion exercises including ankle pumps, quad and glut sets, hip abd and adduction, and heel slides x's 12 each. supine ext hang x's 5min. standing heel raises, and hamstring curls x's 12 eacg. step flexion stretch x's 5 w/ 10sec hold, seated heel slides x's 5 with verbal and visual cues for correct form. patient instructed to perform home exercise program twice a day which included above exercises Physical Therapy Transfer Training Problem:PT Impaired mobility Goal:Improved Transfers Completed Rudy transfers with safe/proper technqiue Physical Therapy Bed Mobility Training Problem:PT Impaired mobility Goal:Improved Bed Mobility Completed RUDY bed mobiity Physical Therapy Stair Training Problem:PT Impaired gait Goal:Improved Stair Climbing Completed up and down 2 steps with cane and rail with step together sequence Physical Therapy Gait Training Problem:PT Impaired gait Goal:Improved Gait Completed Indep amb with st cane with stiff legged gait L, vc to maintain heel toe x 100' Physical Therapy Balance Training Problem:PT Impaired balance Goal:Improved Balance Completed pt demonstrates improved dynamic standing balane as evidenced by a tug of 18 Instruct on orthopedic precautions and weight bearing restrictions Description: Orthopedic precautions including left total knee: no knee flexed over pillow at rest and no kneeling. Weight bearing restrictions include: WBAT of involved extremity. Problem:PT Orthopedic Condition Goal:Manage Orthopedic Condition Completed patient instructed on orthopedic precautions. Instruct on management of edema Problem:PT Orthopedic Condition Goal:Manage Orthopedic Condition Completed Instruct patient on management of edema including elevation of LLE above the level of the heart and ice. Instruct on self-management of post surgical and/or non-surgical orthopedic intervention Problem:PT Orthopedic Condition Goal:Manage Orthopedic Condition Completed patient instructed on managagement of orthopedic condition, eating foods with high protein, signs and symptoms of infection, signs and symptoms of DVT/PE and instructed on when to call provider. Instruct and educate on knowledge deficits Problem:PT Learning Assessment Goal:Demonstrate understanding of education Completed patient verbalize and/or demonstrate understanding of physical therapy education including orthopedic condition management, surgical precautions, pain management, fall prevention strategies, home safety, functional activity and home exercise program. Education methods include: verbal cues. 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 Morning stiffness of joints Procedures XR HIP GENERAL 3V PELV/AP/LAT RIGHT RADEX HIP UNILATERAL WITH PELVIS 2-3 VIEWS Mino Harris MD [address] [place] [address] Xr Imaging Referral ID Status Reason Start Date Expiration Date V isits Requested Visits Authorized [id number] Closed Auto-Generate d Referral 02/19/2022 03/21/2023 1 1 * Diagnostic Procedure Only (Routine) - Closed Specialty Diagnoses / Procedures Referred By Contac t Referred To Contact XR IMAGING Diagnoses Rheumatoid arthritis involving multiple sites with positive rheumatoid factor (HCC) High risk medication use 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 Morning stiffness of joints Procedures XR FOOT SURVEY ARTHRITIS 1V AP BILATERAL JOINT SURVEY SINGLE VIEW 2 OR MORE JOINTS Mino Harris MD [address] [place] [id number] Xr Imaging Referral ID Status Reason Start Date Expiration Date V isits Requested Visits Authorized [id number] Closed Auto-Generate d Referral 02/19/2022 03/21/2023 1 1 * Diagnostic Procedure Only (Routine) - Closed Specialty Diagnoses / Procedures Referred By Contac t Referred To Contact XR IMAGING Diagnoses Rheumatoid arthritis involving multiple sites with positive rheumatoid factor (HCC) High risk medication use 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 Morning stiffness of joints Procedures XR HAND/WRIST SURVEY ARTHRITIS 1V PA BILATERAL JOINT SURVEY SINGLE VIEW 2 OR MORE JOINTS Mino Harris MD [address] [place] [address] Xr Imaging Referral ID Status Reason Start Date Expiration Date V isits Requested Visits Authorized [id number] Closed Auto-Generate d Referral 02/19/2022 03/21/2023 1 1 * Consult, Test, Treat (Routine) - Pending Review Specialty Diagnoses / Procedures Referred By Contac t Referred To Contact Diagnoses Rheumatoid arthritis involving multiple sites with positive rheumatoid factor (HCC) Procedures CONSULT TO INTEGRATIVE MEDICINE OFFICE/OUTPATIENT [facility] 60-74 MINUTES Mino Harris MD [address] [place] [address] Referral ID Status Reason Start Date Expiration Date Visits Requested Visits Authorized [id number] Pending Review PCP Requested Referral 03/21/2022 02/19/2023 1 1 [facility] for referral (narrative)* - Pending Review Specialty Diagnoses / Procedures Referred By Contac t Referred To Contact Diagnoses Rheumatoid arthritis involving both knees with positive rheumatoid factor (HCC) Low vitamin D level Other fatigue Procedures CONSULT TO PHYSICAL THERAPY Raquel Thomas MD [address] [place] [address] Referral ID Status Reason Start Date Expiration Date V isits Requested Visits Authorized [id number] Pending Review 03/21/2022 06/19/2022 1 1 [facility] for referral (narrative)* Outpatient Procedure (Routine) - Pending Review Specialty Diagnoses / Procedures Referred By Contac t Referred To Contact [facility] Diagnoses Screen for colon cancer Procedures COLONOSCOPY SCREENING COLONOSCOPY FLX DX W/COLLJ SPEC WHEN PFRMD Anabela Palomares APRN.LINOTYPE MACHINIST APPRENTICE [address] [place] [address] [facility] [place] [address] [place] [id number] Referral ID Status Reason Start Date Expiration Date Visits Requested Visits Authorized [id number] Pending Review Auto-Generat ed Referral 04/11/2022 04/11/2023 1 1 * Outpatient Procedure (Routine) - Pending Review Specialty Diagnoses / Procedures Referred By Jinny rosen Referred To Contact [facility] Diagnoses History of esophageal stricture Gastroesophageal reflux disease without esophagitis Belching Iron deficiency anemia, unspecified iron deficiency anemia type Procedures EGD DIAGNOSTIC ESOPHAGOGASTRODUODENOSC OPY TRANSORAL DIAGNOSTIC Anabela Palomares APRN.LINOTYPE MACHINIST APPRENTICE [address] [place] [address] [facility] [address] [address] Referral ID Status Reason Start Date Expiration Date Visits Requested Visits Authorized [id number] Pending Review Auto-Generat ed Referral 04/11/2022 04/11/2023 1 1 [facility] Diagnostic Procedure Only (Routine) - Closed Specialty Diagnoses / Procedures Referred By Contac t Referred To Contact XR IMAGING Diagnoses Pain in both knees, unspecified chronicity Procedures XR KNEE GENERAL 4V AP BOTH/PA BOTH/LAT/MERC BILATERAL RADIOLOGIC EXAM KNEE COMPLETE 4/MORE VIEWS Alhaji Francois PA-C [address] [place] [address] Xr Imaging Referral ID Status Reason Start Date Expiration Date V isits Requested Visits Authorized [id number] Closed Auto-Generate d Referral 04/18/2022 05/18/2023 1 1 [facility] for referral (narrative)* Outpatient Procedure (Routine) - Closed Specialty Diagnoses / Procedures Referred By Contac t Referred To Contact [facility] Diagnoses Pre-operative examination Procedures ECG COMPLETE ECG ROUTINE ECG W/LEAST 12 LDS W/I&R Lilibeth Bolivar APRN.LINOTYPE MACHINIST APPRENTICE [address] [place] [address] [facility] [place] [address] [place] [address] Referral ID Status Reason Start Date Expiration Date V isits Requested Visits Authorized [id number] Closed Auto-Generate d Referral 05/31/2022 05/31/2023 1 1 [facility] for referral (narrative)* Diagnostic Procedure Only (Routine) - Pending Review Specialty Diagnoses / Procedures Referred By Contac t Referred To Contact US IMAGING Diagnoses Rheumatoid arthritis involving multiple sites with positive rheumatoid factor (HCC) High risk medication use Avascular necrosis (HCC) Procedures US HAND/WRIST SYNOVIAL SCREEN LT US COMPL JOINT R-T W/IMAGE DOCUMENTATION Mnio Harris MD [address] [place] [address] Us Imaging Referral ID Status Reason Start Date Expiration Date Visits Requested Visits Authorized [id number] Pending Review Auto-Generat ed Referral 06/13/2022 07/13/2023 1 1 * Diagnostic Procedure Only (Routine) - Pending Review Specialty Diagnoses / Procedures Referred By Contac t Referred To Contact US IMAGING Diagnoses Rheumatoid arthritis involving multiple sites with positive rheumatoid factor (HCC) High risk medication use Avascular necrosis (HCC) Procedures US HAND/WRIST SYNOVIAL SCREEN RT US COMPL JOINT R-T W/IMAGE DOCUMENTATION Mino Harris MD [address] [place] [address] Us Imaging Referral ID Status Reason Start Date Expiration Date Visits Requested Visits Authorized [id number] Pending Review Auto-Generat ed Referral 06/13/2022 07/13/2023 1 1 [facility] for referral (narrative)* Outpatient Procedure (Routine) - Pending Review Specialty Diagnoses / Procedures Referred By Contac t Referred To Contact [facility] Diagnoses Gastroesophageal reflux disease, unspecified whether esophagitis present Procedures EGD DIAGNOSTIC ESOPHAGOGASTRODUODENOSC OPY TRANSORAL DIAGNOSTIC Jesusita Kohler PA-C [address] [place] [address] [facility] [address] [place] [address] Referral ID Status Reason Start Date Expiration Date Visits Requested Visits Authorized [id number] Pending Review Auto-Generat ed Referral 11/06/2022 11/06/2023 1 1 * Outpatient Procedure (Routine) - Pending Review Specialty Diagnoses / Procedures Referred By Contac t Referred To Contact [facility] Diagnoses Blood in stool Lower abdominal pain Procedures COLONOSCOPY DIAGNOSTIC COLONOSCOPY FLX DX W/COLLJ SPEC WHEN PFRMD Jesusita Kohler PA-C [address] [place] [address] [facility] [address] [place] [address] Referral ID Status Reason Start Date Expiration Date Visits Requested Visits Authorized [id number] Pending Review Auto-Generat ed Referral 11/06/2022 11/06/2023 1 1 * Diagnostic Procedure Only (Routine) - Pending Review Specialty Diagnoses / Procedures Referred By Contac t Referred To Contact US IMAGING Diagnoses Elevated ferritin Procedures US ABD RT UPPER QUADRANT US ABDOMINAL REAL TIME W/IMAGE LIMITED Jesusita Kohler PA-C [address] [facility] [place] [address] Us Imaging Referral ID Status Reason Start Date Expiration Date Visits Requested Visits Authorized [id number] Pending Review Auto-Generat ed Referral 11/06/2022 12/06/2023 1 1 [facility] for referral (narrative)* Diagnostic Procedure Only (Routine) - Closed Specialty Diagnoses / Procedures Referred By Contac t Referred To Contact XR IMAGING Diagnoses S/P total knee replacement, left Procedures XR KNEE POST OP 3V AP/LAT/MERCHANT LEFT RADIOLOGIC EXAMINATION KNEE 3 VIEWS Alhaji Francois PA-C [address] [place] [address] [place] [address] Referral ID Status Reason Start Date Expiration Date V isits Requested Visits Authorized [id number] Closed Auto-Generate d Referral 04/15/2023 05/14/2024 1 1 [facility] for referral (narrative)* Diagnostic Procedure Only (Routine) - Pending Review Specialty Diagnoses / Procedures Referred By Contac t Referred To Contact BR IMAGING Diagnoses Encounter for screening mammogram for breast cancer Procedures SERGO SCREENING SCREENING MAMMOGRAPHY BI 2-VIEW BREAST INC CAD Timbo Bright MD [address] [place] [address] [facility] [address] [place] [address] Referral ID Status Reason Start Date Expiration Date Visits Requested Visits Authorized [id number] Pending Review Auto-Generat ed Referral 02/04/2024 03/05/2025 1 1 [facility] for referral (narrative)* Outpatient Procedure (Routine) - Closed Specialty Diagnoses / Procedures Referred By Contac t Referred To Contact [facility] Diagnoses Gastroesophageal reflux disease, unspecified whether esophagitis present Procedures EGD DIAGNOSTIC ESOPHAGOGASTRODUODENOSC OPY TRANSORAL DIAGNOSTIC Jesusita Kohler PA-C [address] [place] [address] [facility] [address] [place] [address] Referral ID Status Reason Start Date Expiration Date V isits Requested Visits Authorized [id number] Closed Auto-Generate d Referral 04/14/2023 03/05/2024 1 1 [facility] for referral (narrative)* Outpatient Procedure (Routine) - Closed Specialty Diagnoses / Procedures Referred By Contac t Referred To Contact ENDOSCOPY Diagnoses Blood in stool Lower abdominal pain Procedures COLONOSCOPY DIAGNOSTIC COLONOSCOPY FLX DX W/COLLJ SPEC WHEN PFRMD Jesusita Kohler PA-C [address] [place] [address] Tee Batres MD [address] [place] [address] Referral ID Status Reason Start Date Expiration Date V isits Requested Visits Authorized [id number] Closed Auto-Generate d Referral 03/18/2023 03/18/2023 1 1 [facility] for referral (narrative)* Diagnostic Procedure Only (Routine) - Closed Specialty Diagnoses / Procedures [facility] X[facility] Diagnoses Primary osteoarthritis of left knee Procedures XR KNEE POST OP 3V AP/LAT/MERCHANT LEFT RADIOLOGIC EXAMINATION KNEE 3 VIEWS Alhaji Francois PA-C [address] [place] [address] Xr Imaging [facility]95 Referral ID Status Reason Start Date Expiration Date V isits Requested Visits Authorized [id number] Closed Auto-Generate d Referral 09/24/2022 10/24/2023 1 1 [facility] for referral (narrative)* Diagnostic Procedure Only (Routine) - Closed Specialty Diagnoses / Procedures Referred By Contac t Referred To Contact XR IMAGING Diagnoses Primary osteoarthritis of right hip Procedures XR HIP GENERAL 3V PELV/AP/LAT RIGHT RADEX HIP UNILATERAL WITH PELVIS 2-3 VIEWS Alhaji Francois PA-C [address] [place] [address] Xr Imaging [place] [address] Referral ID Status Reason Start Date Expiration Date V isits Requested Visits Authorized [id number] Closed Auto-Generate d Referral 05/14/2022 06/12/2023 1 1 [facility] for referral (narrative)* Diagnostic Procedure Only (Routine) - Closed Specialty Diagnoses / Procedures Referred By Contac t Referred To Contact XR IMAGING Diagnoses Primary osteoarthritis of right knee Procedures XR KNEE POST OP 3V AP/LAT/MERCHANT RT X-RAY KNEE 3+ VW Alhaji Francois PA-C [address] [place] [id number] Xr Imaging [facility]95 Referral ID Status Reason Start Date Expiration Date V isits Requested Visits Authorized [id number] Closed Auto-Generate d Referral 05/17/2021 06/16/2022 1 1 [facility] for referral (narrative)* Diagnostic Procedure Only (Routine) - New Request Specialty Diagnoses / Procedures Referred By Contac t Referred To Contact XR IMAGING Diagnoses Acute pain Procedures XR KNEE LIMITED 2V AP/LAT RIGHT RADIOLOGIC EXAMINATION KNEE 1/2 VIEWS Mino Harris MD [address] [place] [address] Xr Imaging [facility]95 Referral ID Status Reason Start Date Expiration Date Visits Requested Visits Authorized [id number] New Request Auto-Generat ed Referral 10/22/2024 11/21/2025 1 1 * Diagnostic Procedure Only (Routine) - New Request Specialty Diagnoses / Procedures Referred By Jinny rosen Referred To Contact XR IMAGING Diagnoses Acute pain of left knee Procedures XR KNEE LIMITED 2V AP/LAT LEFT RADIOLOGIC EXAMINATION KNEE 1/2 VIEWS Mino Harris MD [address] [place] [id number] Xr Imaging [facility]95 Referral ID Status Reason Start Date Expiration Date Visits Requested Visits Authorized [id number] New Request Auto-Generat ed Referral 10/22/2024 11/21/2025 1 1 [facility] for visit Narrative* Diagnostic Procedure Only (Routine) - Closed Specialty Diagnoses / Procedures Referred By Jinny rosen Referred To Contact XR IMAGING Diagnoses S/P total knee replacement, left Procedures XR KNEE POST OP 3V AP/LAT/MERCHANT LEFT RADIOLOGIC EXAMINATION KNEE 3 VIEWS Alhaji Francois, PA-C [address] [place] [address] Xr Imaging [facility]95 Referral ID Status Reason Start Date Expiration Date V isits Requested Visits Authorized [id number] Closed Auto-Generate d Referral 04/15/2023 05/14/2024 1 1 [facility] for visit Narrative* Outpatient Procedure (Routine) - Closed Specialty Diagnoses / Procedures Referred By Jinny t Referred To Contact [facility] Diagnoses Gastroesophageal reflux disease, unspecified whether esophagitis present Procedures EGD DIAGNOSTIC ESOPHAGOGASTRODUODENOSC OPY TRANSORAL DIAGNOSTIC Jesusita Kohler, FUNMILAYO-C [address] [place] [address] [facility] [address] [place] [address] Referral ID Status Reason Start Date Expiration Date V isits Requested Visits Authorized [id number] Closed Auto-Generate d Referral 04/14/2023 03/05/2024 1 1 [facility] for visit Narrative* Outpatient Procedure (Routine) - Closed Specialty Diagnoses / Procedures Referred By Contac t Referred To Contact ENDOSCOPY Diagnoses Blood in stool Lower abdominal pain Procedures COLONOSCOPY DIAGNOSTIC COLONOSCOPY FLX DX W/COLLJ SPEC WHEN PFRMD Jesusita Kohler PA-C [address] [place] [address] Tee Batres MD [address] [place] [address] Referral ID Status Reason Start Date Expiration Date V isits Requested Visits Authorized [id number] Closed Auto-Generate d Referral 03/18/2023 03/18/2023 1 1 [facility] for visit Narrative* Diagnostic Procedure Only (Routine) - Closed Specialty Diagnoses / Procedures Referred By Contac t Referred To Contact XR IMAGING Diagnoses Primary osteoarthritis of left knee Procedures XR KNEE POST OP 3V AP/LAT/MERCHANT LEFT RADIOLOGIC EXAMINATION KNEE 3 VIEWS DecapuaAlhaji, PA-C [address] [place] [address] Xr Imaging [facility]95 Referral ID Status Reason Start Date Expiration Date V isits Requested Visits Authorized [id number] Closed Auto-Generate d Referral 09/24/2022 10/24/2023 1 1 [facility] for visit Narrative* Diagnostic Procedure Only (Routine) - Closed Specialty Diagnoses / Procedures Referred By Contac t Referred To Contact XR IMAGING Diagnoses Primary osteoarthritis of right hip Procedures XR HIP GENERAL 3V PELV/AP/LAT RIGHT RADEX HIP UNILATERAL WITH PELVIS 2-3 VIEWS DecAlhaji mendoza, PA-C [address] [place] [address] [place] [address] Referral ID Status Reason Start Date Expiration Date V isits Requested Visits Authorized [id number] Closed Auto-Generate d Referral 05/14/2022 06/12/2023 1 1 [facility] for visit Narrative* Diagnostic Procedure Only (Routine) - Closed Specialty Diagnoses / Procedures Referred By Contac t Referred To Contact XR IMAGING Diagnoses Primary osteoarthritis of right knee Procedures XR KNEE POST OP 3V AP/LAT/MERCHANT RT X-RAY KNEE 3+ VW Alhaji Francois, KATH [address] [place] [address] Xr Imaging [place] [address] Referral ID Status Reason Start Date Expiration Date V isits Requested Visits Authorized [id number] Closed Auto-Generate d Referral 05/17/2021 06/16/2022 1 1 [facility] for visit Narrative* Diagnostic Procedure Only (Routine) - Closed Specialty Diagnoses / Procedures Referred By Contac t Referred To Contact XR IMAGING Diagnoses Acute pain Procedures XR KNEE LIMITED 2V AP/LAT RIGHT RADIOLOGIC EXAMINATION KNEE 1/2 VIEWS Mino Harris MD [address] [place] [address] Xr Imaging [place] [address] Referral ID Status Reason Start Date Expiration Date V isits Requested Visits Authorized [id number] Closed Auto-Generate d Referral 10/22/2024 11/21/2025 1 1 [facility] Summary Purpose Family History No Family History Records FoundNo Family History Records FoundNo Family History Records FoundNo Family History Records Found No data available for this section No Family History Records FoundNo Family History Records FoundNo Family History Records Found Advance Directives No Advanced Directives Records FoundDocuments on File Type Date Recorded 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 Advance Directive(s) 07/02/2021 9:35 AM Advance Directive(s) 06/28/2021 4:57 PM Advance Directive(s) 01/19/2019 10:50 AM Latest Code Status on File Code Status Date Activated Date Inactivated Comments Full Code 07/04/2021 3:14 PM Documents on File Type Date Recorded 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 Advance Directive(s) 07/02/2021 9:35 AM Advance Directive(s) 06/28/2021 4:57 PM Advance Directive(s) 01/19/2019 10:50 AM Latest Code Status on File Code Status Date Activated Date Inactivated Comments Full Code 07/04/2021 3:14 PM Latest Code Status on File Code Status Date Activated Date Inactivated Comments Full Code 07/04/2021 3:14 PM 06/18/2022 6:15 AM Latest Code Status on File Code Status Date Activated Date Inactivated Comments Full Code 06/20/2022 3:06 PM Full Code 07/04/2021 3:14 PM 06/18/2022 6:15 AM Latest Code Status on File Code Status Date Activated Date Inactivated Comments Full Code 06/20/2022 3:06 PM Full Code 07/04/2021 3:14 PM 06/18/2022 6:15 AM Advance Directive Response Recorded Date/ Time Advance Directives No October 11:08pm Living Will No September 10, 2 022 11:59am 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 No September 10, 2022 11:59am Latest Code Status on File Code Status Date Activated Date Inactivated Comments Full Code 06/20/2022 3:06 PM 11/18/2022 5:55 AM Latest Code Status on File Code Status Date Activated Date Inactivated Comments Full Code 11/20/2022 7:04 PM Full Code 06/20/2022 3:06 PM 11/18/2022 5:55 AM Latest Code Status on File Code Status Date Activated Date Inactivated Comments Full Code 11/20/2022 7:04 PM Full Code 06/20/2022 3:06 PM 11/18/2022 5:55 AM Latest Code Status on File Code Status Date Activated Date Inactivated Comments Full Code 11/20/2022 7:04 PM Code Status History Code Status Date Activated Date Inactivated Comments Full Code 06/20/2022 3:06 PM 11/18/2022 5:55 AM Full Code 07/04/2021 3:14 PM 06/18/2022 6:15 AM Latest Code Status on File Code Status Date Activated Date Inactivated Comments Full Code 11/20/2022 7:04 PM Code Status History Code Status Date Activated Date Inactivated Comments Full Code 06/20/2022 3:06 PM 11/18/2022 5:55 AM Full Code 07/04/2021 3:14 PM 06/18/2022 6:15 AM Date Activated Date Inactivated Comments 11/20/2022 7:04 PM Date Activated Date Inactivated Comments 06/20/2022 3:06 PM 11/18/2022 5:55 AM Date Activated Date Inactivated Comments 07/04/2021 3:14 PM 06/18/2022 6:15 AM Date Activated Date Inactivated Comments 11/20/2022 7:04 PM Date Activated Date Inactivated Comments 06/20/2022 3:06 PM 11/18/2022 5:55 AM Date Activated Date Inactivated Comments 07/04/2021 3:14 PM 06/18/2022 6:15 AM Reason for Referral Specialty Diagnoses / Procedures Referred By Contac t Referred To Contact Gastroenterology Diagnoses History of esophageal stricture Gastroesophageal reflux disease without esophagitis Procedures CONSULT TO GASTROENTEROLOGY OFFICE/OUTPATIENT COUNT INCLUDES THE [facility] MDM 60-74 MINUTES Mino Harris MD [address] [place] [id number] Referral ID Status Reason Start Date Expiration Date Visits Requested Visits Authorized [id number] Pending Review PCP Requested Referral 02/25/2022 02/25/2023 1 1 Specialty Diagnoses / Procedures Referred By Contac t Referred To Contact [facility] Diagnoses Primary osteoarthritis of right hip Procedures CONSULT TO PHYSICAL THERAPY PHYSICAL THERAPY EVALUATION [facility] COMPLEX 45 MINS Alhaji Francois PA-C [address] [place] [address] [facility] [place] [id number] [place] [address] Referral ID Status Reason Start Date Expiration Date Visits Requested Visits Authorized [id number] Pending Review Auto-Generat ed Referral 05/14/2022 05/13/2023 1 1 Specialty Diagnoses / Procedures Referred By Contac t Referred To Contact XR IMAGING Diagnoses Primary osteoarthritis of right hip Procedures XR HIP GENERAL 3V PELV/AP/LAT RIGHT RADEX HIP UNILATERAL WITH PELVIS 2-3 VIEWS Alhaji Francois PA-C [address] [address] Xr Imaging Referral ID Status Reason Start Date Expiration Date Visits Requested Visits Authorized [id number] Pending Review Auto-Generat ed Referral 05/14/2022 06/12/2023 1 1 Specialty Diagnoses / Procedures Referred By Contac t Referred To Contact Allergy Diagnoses Allergy to imaging contrast media Procedures CONSULT TO ALLERGY/IMMUNOLOGY OFFICE/OUTPATIENT [facility] MDM 60-74 MINUTES Mino Harris MD [address] [place] [address] Referral ID Status Reason Start Date Expiration Date Visits Requested Visits Authorized [id number] Pending Review PCP Requested Referral 08/08/2023 1 1 Specialty Diagnoses / Procedures Referred By Contac t Referred To Contact [facility] Diagnoses Scapular dysfunction Procedures CONSULT TO PHYSICAL THERAPY PHYSICAL THERAPY EVALUATION [facility] COMPLEX 45 MINS Peace Hunt PA-C [address] [place] [address] [facility] [address] [address] Referral ID Status Reason Start Date Expiration Date Visits Requested Visits Authorized [id number] Pending Review Auto-Generat ed Referral 08/28/2022 08/28/2023 1 1 Specialty Diagnoses / Procedures Referred By Contac t Referred To Contact [facility] Diagnoses Primary osteoarthritis of left knee S/P total knee arthroplasty, left Status post total left knee replacement Procedures PT REHAB FOLLOW UP ORDER THERAPEUTIC EXERCISES RE, EA 15 MIN. Pt [facility] [address] [place] [address] [facility] [address] [address] Referral ID Status Reason Start Date Expiration Date Visits Requested Visits Authorized [id number] Pending Review PCP Requested Referral Auto-Generate d Referral 12/12/2022 03/12/2023 1 1 Specialty Diagnoses / Procedures Referred By Contac t Referred To Contact [facility] Diagnoses S/P total knee arthroplasty, left Primary osteoarthritis of left knee Procedures PT REHAB FOLLOW UP ORDER THERAPEUTIC EXERCISES RE, EA 15 MIN. Pt [facility] [address] [place] [address] [facility] [address] [address] Referral ID Status Reason Start Date Expiration Date Visits Requested Visits Authorized [id number] Pending Review PCP Requested Referral Auto-Generate d Referral 01/09/2023 04/09/2023 1 1 Specialty Diagnoses / Procedures Referred By Contac t Referred To Contact BR IMAGING Diagnoses Breast cancer screening by mammogram Procedures SERGO SCREENING SCREENING MAMMOGRAPHY BI 2-VIEW BREAST INC CAD Timbo Bright MD [address] [place] [address] [facility] [address] [place] [address] Referral ID Status Reason Start Date Expiration Date Visits Requested Visits Authorized [id number] Pending Review Auto-Generat ed Referral 02/26/2023 05/27/2023 3 1 Specialty Diagnoses / Procedures Referred By Contac t Referred To Contact Gynecology Diagnoses Screening for cervical cancer Procedures CONSULT TO GYNECOLOGY OFFICE/OUTPATIENT [facility] 60 MINUTES Ev Berger, TRASH COLLECTOR.DIE CUTTING MACHINE OPERATOR [address] [place] [address] Referral ID Status Reason Start Date Expiration Date Visits Requested Visits Authorized [id number] Authorized PCP Requested Referral Auto-Generate d Referral 05/28/2024 05/28/2025 1 1 Specialty Diagnoses / Procedures Referred By Contac t Referred To Contact Diagnoses NIKO (obstructive sleep apnea) Procedures CONSULT TO SLEEP MEDICINE - ADULT OFFICE/OUTPATIENT [facility] 60 MINUTES Ev Berger, TRASH COLLECTOR.DIE CUTTING MACHINE OPERATOR [address] [place] [address] Referral ID Status Reason Start Date Expiration Date Visits Requested Visits Authorized [id number] Authorized PCP Requested Referral 05/28/2024 05/28/2025 1 1 Specialty Diagnoses / Procedures Referred By Contac t Referred To Contact Diagnoses Rheumatoid arthritis involving multiple sites with positive rheumatoid factor (HCC) Procedures CONSULT TO PREVENTIVE CARD OFFICE/OUTPATIENT [facility] 60 MINUTES Mino Harris MD [address] [place] [address] Referral ID Status Reason Start Date Expiration Date Visits Requested Visits Authorized [id number] Authorized PCP Requested Referral 06/10/2024 06/10/2025 1 1 Medications Administered Section Inactive Administered Medications - up to 3 most recent administrations Medication Order MAR Action Action Date Dose Rate Site iron sucrose 300 mg in NaCl 0.9% 250 mL (VENOFER) 300 mg, INTRAVENOUS, at 166.67 mL/hr, Administer over 90 Minutes, ONCE, 1 dose, On Fri06/07/22 at 1530, Please conduct a 30 minute post dose observation. New Bag/Syringe/Bottle 06/07/2022 3:19 PM EDT 300 mg 166.67 mL/hr Inactive Administered Medications - up to 3 most recent administrations Medication Order MAR Action Action Date Dose Rate Site iron sucrose 300 mg in NaCl 0.9% 250 mL (VENOFER) 300 mg, INTRAVENOUS, at 166.67 mL/hr, Administer over 90 Minutes, ONCE, 1 dose, On Fri06/10/22 at 1130, Please conduct a 30 minute post dose observation. New Bag/Syringe/Bottle 06/10/2022 11:18 AM EDT 300 mg 166.67 mL/hr Inactive Administered Medications - up to 3 most recent administrations Medication Order MAR Action Action Date Dose Rate Site iron sucrose 300 mg in NaCl 0.9% 250 mL (VENOFER) 300 mg, INTRAVENOUS, at 166.67 mL/hr, Administer over 90 Minutes, ONCE, 1 dose, On Fri06/14/22 at 1000, Please conduct a 30 minute post dose observation. New Bag/Syringe/Bottle 06/14/2022 10:13 AM EDT 300 mg 166.67 mL/hr Inactive Administered Medications - up to 3 most recent administrations Medication Order MAR Action Action Date Dose Rate Site lidocaine (PF) 10 mg/mL (1 %) 5 mg injection (XYLOCAINE) 5 mg (0.5 mL), INTRADERMAL, ONCE, 1 dose, On Fri12/24/22 at 1100 Given 12/24/2022 10:31 AM EDT 5 mg Chest Chief Complaint and Reason for Visit Chief Complaint CHEST CONGESTION/HEA D CONGESTION sob SOBS Reason for Visit Acute bronchitis Additional Source Comments INFORMATION SOURCE (unrecogn ized section and content) DATE CREATED AUTHOR 02/14/2021 [facility] DATE CREATED AUTHOR AUTHOR'S ORGANIZ ATION 06/28/2021 [facility] DATE CREATED AUTHOR AUTHOR'S ORGANIZ ATION 08/16/2022 [facility] DATE CREATED AUTHOR AUTHOR'S ORGANIZ ATION 11/23/2022 [facility] DATE CREATED AUTHOR AUTHOR'S ORGANIZ ATION 05/17/2024 [facility] DATE CREATED AUTHOR AUTHOR'S ORGANIZ ATION 09/20/2024 [facility] DATE CREATED AUTHOR AUTHOR'S ORGANIZ ATION 02/05/2025 [facility] Source Comments (unrecognize d section and content) In the event this informatio n is protected by the Federal Confidentiality of Alcohol and Drug Abuse Patient Records regulations: The Federal rules restrict any use of the information to criminally investigate or prosecute any alcohol or drug abuse patient.[facility] the event this information is protected by the Federal Confidentiality of Alcohol and Drug Abuse Patient Records regulations: The Federal rules restrict any use of the information to criminally investigate or prosecute any alcohol or drug abuse patient.[facility] the event this information is protected by the Federal Confidentiality of Alcohol and Drug Abuse Patient Records regulations: The Federal rules restrict any use of the information to criminally investigate or prosecute any alcohol or drug abuse patient.[facility] the event this information is protected by the Federal Confidentiality of Alcohol and Drug Abuse Patient Records regulations: The Federal rules restrict any use of the information to criminally investigate or prosecute any alcohol or drug abuse patient.[facility]In the event this information is protected by the Federal Confidentiality of Alcohol and Drug Abuse Patient Records regulations: The Federal rules restrict any use of the information to criminally investigate or prosecute any alcohol or drug abuse patient.[facility]In the event this information is protected by the Federal Confidentiality of Alcohol and Drug Abuse Patient Records regulations: The Federal rules restrict any use of the information to criminally investigate or prosecute any alcohol or drug abuse patient.[facility]In the event this information is protected by the Federal Confidentiality of Alcohol and Drug Abuse Patient Records regulations: The Federal rules restrict any use of the information to criminally investigate or prosecute any alcohol or drug abuse patient.[facility] the event this information is protected by the Federal Confidentiality of Alcohol and Drug Abuse Patient Records regulations: The Federal rules restrict any use of the information to criminally investigate or prosecute any alcohol or drug abuse patient.[facility] HospitalIn the event this information is protected by the Federal Confidentiality of Alcohol and Drug Abuse Patient Records regulations: The Federal rules restrict any use of the information to criminally investigate or prosecute any alcohol or drug abuse patient.[facility]In the event this information is protected by the Federal Confidentiality of Alcohol and Drug Abuse Patient Records regulations: The Federal rules restrict any use of the information to criminally investigate or prosecute any alcohol or drug abuse patient.[facility]In the event this information is protected by the Federal Confidentiality of Alcohol and Drug Abuse Patient Records regulations: The Federal rules restrict any use of the information to criminally investigate or prosecute any alcohol or drug abuse patient.[facility] HospitalIn the event this information is protected by the Federal Confidentiality of Alcohol and Drug Abuse Patient Records regulations: The Federal rules restrict any use of the information to criminally investigate or prosecute any alcohol or drug abuse patient.[facility] HospitalIn the event this information is protected by the Federal Confidentiality of Alcohol and Drug Abuse Patient Records regulations: The Federal rules restrict any use of the information to criminally investigate or prosecute any alcohol or drug abuse patient.[facility] HospitalIn the event this information is protected by the Federal Confidentiality of Alcohol and Drug Abuse Patient Records regulations: The Federal rules restrict any use of the information to criminally investigate or prosecute any alcohol or drug abuse patient.[facility] HospitalIn the event this information is protected by the Federal Confidentiality of Alcohol and Drug Abuse Patient Records regulations: The Federal rules restrict any use of the information to criminally investigate or prosecute any alcohol or drug abuse patient.[facility] HospitalIn the event this information is protected by the Federal Confidentiality of Alcohol and Drug Abuse Patient Records regulations: The Federal rules restrict any use of the information to criminally investigate or prosecute any alcohol or drug abuse patient.[facility] HospitalIn the event this information is protected by the Federal Confidentiality of Alcohol and Drug Abuse Patient Records regulations: The Federal rules restrict any use of the information to criminally investigate or prosecute any alcohol or drug abuse patient.[facility] HospitalIn the event this information is protected by the Federal Confidentiality of Alcohol and Drug Abuse Patient Records regulations: The Federal rules restrict any use of the information to criminally investigate or prosecute any alcohol or drug abuse patient.[facility] HospitalIn the event this information is protected by the Federal Confidentiality of Alcohol and Drug Abuse Patient Records regulations: The Federal rules restrict any use of the information to criminally investigate or prosecute any alcohol or drug abuse patient.[facility] HospitalIn the event this information is protected by the Federal Confidentiality of Alcohol and Drug Abuse Patient Records regulations: The Federal rules restrict any use of the information to criminally investigate or prosecute any alcohol or drug abuse patient.[facility] HospitalIn the event this information is protected by the Federal Confidentiality of Alcohol and Drug Abuse Patient Records regulations: The Federal rules restrict any use of the information to criminally investigate or prosecute any alcohol or drug abuse patient.[facility] HospitalIn the event this information is protected by the Federal Confidentiality of Alcohol and Drug Abuse Patient Records regulations: The Federal rules restrict any use of the information to criminally investigate or prosecute any alcohol or drug abuse patient.[facility] HospitalIn the event this information is protected by the Federal Confidentiality of Alcohol and Drug Abuse Patient Records regulations: The Federal rules restrict any use of the information to criminally investigate or prosecute any alcohol or drug abuse patient.[facility] HospitalIn the event this information is protected by the Federal Confidentiality of Alcohol and Drug Abuse Patient Records regulations: The Federal rules restrict any use of the information to criminally investigate or prosecute any alcohol or drug abuse patient.[facility] HospitalIn the event this information is protected by the Federal Confidentiality of Alcohol and Drug Abuse Patient Records regulations: The Federal rules restrict any use of the information to criminally investigate or prosecute any alcohol or drug abuse patient.[facility] HospitalIn the event this information is protected by the Federal Confidentiality of Alcohol and Drug Abuse Patient Records regulations: The Federal rules restrict any use of the information to criminally investigate or prosecute any alcohol or drug abuse patient.[facility] HospitalIn the event this information is protected by the Federal Confidentiality of Alcohol and Drug Abuse Patient Records regulations: The Federal rules restrict any use of the information to criminally investigate or prosecute any alcohol or drug abuse patient.[facility] HospitalIn the event this information is protected by the Federal Confidentiality of Alcohol and Drug Abuse Patient Records regulations: The Federal rules restrict any use of the information to criminally investigate or prosecute any alcohol or drug abuse patient.[facility] HospitalIn the event this information is protected by the Federal Confidentiality of Alcohol and Drug Abuse Patient Records regulations: The Federal rules restrict any use of the information to criminally investigate or prosecute any alcohol or drug abuse patient.[facility] HospitalIn the event this information is protected by the Federal Confidentiality of Alcohol and Drug Abuse Patient Records regulations: The Federal rules restrict any use of the information to criminally investigate or prosecute any alcohol or drug abuse patient.[facility] HospitalIn the event this information is protected by the Federal Confidentiality of Alcohol and Drug Abuse Patient Records regulations: The Federal rules restrict any use of the information to criminally investigate or prosecute any alcohol or drug abuse patient.[facility] HospitalIn the event this information is protected by the Federal Confidentiality of Alcohol and Drug Abuse Patient Records regulations: The Federal rules restrict any use of the information to criminally investigate or prosecute any alcohol or drug abuse patient.[facility] HospitalIn the event this information is protected by the Federal Confidentiality of Alcohol and Drug Abuse Patient Records regulations: The Federal rules restrict any use of the information to criminally investigate or prosecute any alcohol or drug abuse patient.[facility] HospitalIn the event this information is protected by the Federal Confidentiality of Alcohol and Drug Abuse Patient Records regulations: The Federal rules restrict any use of the information to criminally investigate or prosecute any alcohol or drug abuse patient.[facility] HospitalIn the event this information is protected by the Federal Confidentiality of Alcohol and Drug Abuse Patient Records regulations: The Federal rules restrict any use of the information to criminally investigate or prosecute any alcohol or drug abuse patient.[facility] HospitalIn the event this information is protected by the Federal Confidentiality of Alcohol and Drug Abuse Patient Records regulations: The Federal rules restrict any use of the information to criminally investigate or prosecute any alcohol or drug abuse patient.[facility] HospitalIn the event this information is protected by the Federal Confidentiality of Alcohol and Drug Abuse Patient Records regulations: The Federal rules restrict any use of the information to criminally investigate or prosecute any alcohol or drug abuse patient.[facility] HospitalIn the event this information is protected by the Federal Confidentiality of Alcohol and Drug Abuse Patient Records regulations: The Federal rules restrict any use of the information to criminally investigate or prosecute any alcohol or drug abuse patient.[facility] HospitalIn the event this information is protected by the Federal Confidentiality of Alcohol and Drug Abuse Patient Records regulations: The Federal rules restrict any use of the information to criminally investigate or prosecute any alcohol or drug abuse patient.[facility] HospitalIn the event this information is protected by the Federal Confidentiality of Alcohol and Drug Abuse Patient Records regulations: The Federal rules restrict any use of the information to criminally investigate or prosecute any alcohol or drug abuse patient.[facility] HospitalIn the event this information is protected by the Federal Confidentiality of Alcohol and Drug Abuse Patient Records regulations: The Federal rules restrict any use of the information to criminally investigate or prosecute any alcohol or drug abuse patient.[facility]In the event this information is protected by the Federal Confidentiality of Alcohol and Drug Abuse Patient Records regulations: The Federal rules restrict any use of the information to criminally investigate or prosecute any alcohol or drug abuse patient.[facility] HospitalIn the event this information is protected by the Federal Confidentiality of Alcohol and Drug Abuse Patient Records regulations: The Federal rules restrict any use of the information to criminally investigate or prosecute any alcohol or drug abuse patient.[facility] HospitalIn the event this information is protected by the Federal Confidentiality of Alcohol and Drug Abuse Patient Records regulations: The Federal rules restrict any use of the information to criminally investigate or prosecute any alcohol or drug abuse patient.[facility] HospitalIn the event this information is protected by the Federal Confidentiality of Alcohol and Drug Abuse Patient Records regulations: The Federal rules restrict any use of the information to criminally investigate or prosecute any alcohol or drug abuse patient.[facility] HospitalIn the event this information is protected by the Federal Confidentiality of Alcohol and Drug Abuse Patient Records regulations: The Federal rules restrict any use of the information to criminally investigate or prosecute any alcohol or drug abuse patient.[facility] HospitalIn the event this information is protected by the Federal Confidentiality of Alcohol and Drug Abuse Patient Records regulations: The Federal rules restrict any use of the information to criminally investigate or prosecute any alcohol or drug abuse patient.[facility] HospitalIn the event this information is protected by the Federal Confidentiality of Alcohol and Drug Abuse Patient Records regulations: The Federal rules restrict any use of the information to criminally investigate or prosecute any alcohol or drug abuse patient.[facility] HospitalIn the event this information is protected by the Federal Confidentiality of Alcohol and Drug Abuse Patient Records regulations: The Federal rules restrict any use of the information to criminally investigate or prosecute any alcohol or drug abuse patient.[facility] HospitalIn the event this information is protected by the Federal Confidentiality of Alcohol and Drug Abuse Patient Records regulations: The Federal rules restrict any use of the information to criminally investigate or prosecute any alcohol or drug abuse patient.[facility] HospitalIn the event this information is protected by the Federal Confidentiality of Alcohol and Drug Abuse Patient Records regulations: The Federal rules restrict any use of the information to criminally investigate or prosecute any alcohol or drug abuse patient.[facility] HospitalIn the event this information is protected by the Federal Confidentiality of Alcohol and Drug Abuse Patient Records regulations: The Federal rules restrict any use of the information to criminally investigate or prosecute any alcohol or drug abuse patient.[facility] HospitalIn the event this information is protected by the Federal Confidentiality of Alcohol and Drug Abuse Patient Records regulations: The Federal rules restrict any use of the information to criminally investigate or prosecute any alcohol or drug abuse patient.[facility] HospitalIn the event this information is protected by the Federal Confidentiality of Alcohol and Drug Abuse Patient Records regulations: The Federal rules restrict any use of the information to criminally investigate or prosecute any alcohol or drug abuse patient.[facility] HospitalIn the event this information is protected by the Federal Confidentiality of Alcohol and Drug Abuse Patient Records regulations: The Federal rules restrict any use of the information to criminally investigate or prosecute any alcohol or drug abuse patient.[facility] HospitalIn the event this information is protected by the Federal Confidentiality of Alcohol and Drug Abuse Patient Records regulations: The Federal rules restrict any use of the information to criminally investigate or prosecute any alcohol or drug abuse patient.[facility] HospitalIn the event this information is protected by the Federal Confidentiality of Alcohol and Drug Abuse Patient Records regulations: The Federal rules restrict any use of the information to criminally investigate or prosecute any alcohol or drug abuse patient.[facility] HospitalIn the event this information is protected by the Federal Confidentiality of Alcohol and Drug Abuse Patient Records regulations: The Federal rules restrict any use of the information to criminally investigate or prosecute any alcohol or drug abuse patient.[facility] HospitalIn the event this information is protected by the Federal Confidentiality of Alcohol and Drug Abuse Patient Records regulations: The Federal rules restrict any use of the information to criminally investigate or prosecute any alcohol or drug abuse patient.[facility] HospitalIn the event this information is protected by the Federal Confidentiality of Alcohol and Drug Abuse Patient Records regulations: The Federal rules restrict any use of the information to criminally investigate or prosecute any alcohol or drug abuse patient.[facility] HospitalIn the event this information is protected by the Federal Confidentiality of Alcohol and Drug Abuse Patient Records regulations: The Federal rules restrict any use of the information to criminally investigate or prosecute any alcohol or drug abuse patient.[facility] HospitalIn the event this information is protected by the Federal Confidentiality of Alcohol and Drug Abuse Patient Records regulations: The Federal rules restrict any use of the information to criminally investigate or prosecute any alcohol or drug abuse patient.[facility] HospitalIn the event this information is protected by the Federal Confidentiality of Alcohol and Drug Abuse Patient Records regulations: The Federal rules restrict any use of the information to criminally investigate or prosecute any alcohol or drug abuse patient.[facility] HospitalIn the event this information is protected by the Federal Confidentiality of Alcohol and Drug Abuse Patient Records regulations: The Federal rules restrict any use of the information to criminally investigate or prosecute any alcohol or drug abuse patient.[facility] HospitalIn the event this information is protected by the Federal Confidentiality of Alcohol and Drug Abuse Patient Records regulations: The Federal rules restrict any use of the information to criminally investigate or prosecute any alcohol or drug abuse patient.[facility] HospitalIn the event this information is protected by the Federal Confidentiality of Alcohol and Drug Abuse Patient Records regulations: The Federal rules restrict any use of the information to criminally investigate or prosecute any alcohol or drug abuse patient.[facility] HospitalIn the event this information is protected by the Federal Confidentiality of Alcohol and Drug Abuse Patient Records regulations: The Federal rules restrict any use of the information to criminally investigate or prosecute any alcohol or drug abuse patient.[facility] HospitalIn the event this information is protected by the Federal Confidentiality of Alcohol and Drug Abuse Patient Records regulations: The Federal rules restrict any use of the information to criminally investigate or prosecute any alcohol or drug abuse patient.[facility] HospitalIn the event this information is protected by the Federal Confidentiality of Alcohol and Drug Abuse Patient Records regulations: The Federal rules restrict any use of the information to criminally investigate or prosecute any alcohol or drug abuse patient.[facility] HospitalIn the event this information is protected by the Federal Confidentiality of Alcohol and Drug Abuse Patient Records regulations: The Federal rules restrict any use of the information to criminally investigate or prosecute any alcohol or drug abuse patient.[facility] HospitalIn the event this information is protected by the Federal Confidentiality of Alcohol and Drug Abuse Patient Records regulations: The Federal rules restrict any use of the information to criminally investigate or prosecute any alcohol or drug abuse patient.[facility] HospitalIn the event this information is protected by the Federal Confidentiality of Alcohol and Drug Abuse Patient Records regulations: The Federal rules restrict any use of the information to criminally investigate or prosecute any alcohol or drug abuse patient.[facility] HospitalIn the event this information is protected by the Federal Confidentiality of Alcohol and Drug Abuse Patient Records regulations: The Federal rules restrict any use of the information to criminally investigate or prosecute any alcohol or drug abuse patient.[facility] HospitalIn the event this information is protected by the Federal Confidentiality of Alcohol and Drug Abuse Patient Records regulations: The Federal rules restrict any use of the information to criminally investigate or prosecute any alcohol or drug abuse patient.[facility] HospitalIn the event this information is protected by the Federal Confidentiality of Alcohol and Drug Abuse Patient Records regulations: The Federal rules restrict any use of the information to criminally investigate or prosecute any alcohol or drug abuse patient.[facility] HospitalIn the event this information is protected by the Federal Confidentiality of Alcohol and Drug Abuse Patient Records regulations: The Federal rules restrict any use of the information to criminally investigate or prosecute any alcohol or drug abuse patient.[facility] HospitalIn the event this information is protected by the Federal Confidentiality of Alcohol and Drug Abuse Patient Records regulations: The Federal rules restrict any use of the information to criminally investigate or prosecute any alcohol or drug abuse patient.[facility] HospitalIn the event this information is protected by the Federal Confidentiality of Alcohol and Drug Abuse Patient Records regulations: The Federal rules restrict any use of the information to criminally investigate or prosecute any alcohol or drug abuse patient.[facility] HospitalIn the event this information is protected by the Federal Confidentiality of Alcohol and Drug Abuse Patient Records regulations: The Federal rules restrict any use of the information to criminally investigate or prosecute any alcohol or drug abuse patient.[facility] HospitalIn the event this information is protected by the Federal Confidentiality of Alcohol and Drug Abuse Patient Records regulations: The Federal rules restrict any use of the information to criminally investigate or prosecute any alcohol or drug abuse patient.[facility] HospitalIn the event this information is protected by the Federal Confidentiality of Alcohol and Drug Abuse Patient Records regulations: The Federal rules restrict any use of the information to criminally investigate or prosecute any alcohol or drug abuse patient.[facility] HospitalIn the event this information is protected by the Federal Confidentiality of Alcohol and Drug Abuse Patient Records regulations: The Federal rules restrict any use of the information to criminally investigate or prosecute any alcohol or drug abuse patient.[facility] HospitalIn the event this information is protected by the Federal Confidentiality of Alcohol and Drug Abuse Patient Records regulations: The Federal rules restrict any use of the information to criminally investigate or prosecute any alcohol or drug abuse patient.[facility] HospitalIn the event this information is protected by the Federal Confidentiality of Alcohol and Drug Abuse Patient Records regulations: The Federal rules restrict any use of the information to criminally investigate or prosecute any alcohol or drug abuse patient.[facility] HospitalIn the event this information is protected by the Federal Confidentiality of Alcohol and Drug Abuse Patient Records regulations: The Federal rules restrict any use of the information to criminally investigate or prosecute any alcohol or drug abuse patient.[facility] HospitalIn the event this information is protected by the Federal Confidentiality of Alcohol and Drug Abuse Patient Records regulations: The Federal rules restrict any use of the information to criminally investigate or prosecute any alcohol or drug abuse patient.[facility] HospitalIn the event this information is protected by the Federal Confidentiality of Alcohol and Drug Abuse Patient Records regulations: The Federal rules restrict any use of the information to criminally investigate or prosecute any alcohol or drug abuse patient.[facility] HospitalIn the event this information is protected by the Federal Confidentiality of Alcohol and Drug Abuse Patient Records regulations: The Federal rules restrict any use of the information to criminally investigate or prosecute any alcohol or drug abuse patient.[facility] HospitalIn the event this information is protected by the Federal Confidentiality of Alcohol and Drug Abuse Patient Records regulations: The Federal rules restrict any use of the information to criminally investigate or prosecute any alcohol or drug abuse patient.[facility] HospitalIn the event this information is protected by the Federal Confidentiality of Alcohol and Drug Abuse Patient Records regulations: The Federal rules restrict any use of the information to criminally investigate or prosecute any alcohol or drug abuse patient.[facility] HospitalIn the event this information is protected by the Federal Confidentiality of Alcohol and Drug Abuse Patient Records regulations: The Federal rules restrict any use of the information to criminally investigate or prosecute any alcohol or drug abuse patient.[facility] HospitalIn the event this information is protected by the Federal Confidentiality of Alcohol and Drug Abuse Patient Records regulations: The Federal rules restrict any use of the information to criminally investigate or prosecute any alcohol or drug abuse patient.[facility] HospitalIn the event this information is protected by the Federal Confidentiality of Alcohol and Drug Abuse Patient Records regulations: The Federal rules restrict any use of the information to criminally investigate or prosecute any alcohol or drug abuse patient.[facility] HospitalIn the event this information is protected by the Federal Confidentiality of Alcohol and Drug Abuse Patient Records regulations: The Federal rules restrict any use of the information to criminally investigate or prosecute any alcohol or drug abuse patient.[facility] HospitalIn the event this information is protected by the Federal Confidentiality of Alcohol and Drug Abuse Patient Records regulations: The Federal rules restrict any use of the information to criminally investigate or prosecute any alcohol or drug abuse patient.[facility] HospitalIn the event this information is protected by the Federal Confidentiality of Alcohol and Drug Abuse Patient Records regulations: The Federal rules restrict any use of the information to criminally investigate or prosecute any alcohol or drug abuse patient.[facility] HospitalIn the event this information is protected by the Federal Confidentiality of Alcohol and Drug Abuse Patient Records regulations: The Federal rules restrict any use of the information to criminally investigate or prosecute any alcohol or drug abuse patient.[facility] HospitalIn the event this information is protected by the Federal Confidentiality of Alcohol and Drug Abuse Patient Records regulations: The Federal rules restrict any use of the information to criminally investigate or prosecute any alcohol or drug abuse patient.[facility] HospitalIn the event this information is protected by the Federal Confidentiality of Alcohol and Drug Abuse Patient Records regulations: The Federal rules restrict any use of the information to criminally investigate or prosecute any alcohol or drug abuse patient.[facility] HospitalIn the event this information is protected by the Federal Confidentiality of Alcohol and Drug Abuse Patient Records regulations: The Federal rules restrict any use of the information to criminally investigate or prosecute any alcohol or drug abuse patient.[facility] HospitalIn the event this information is protected by the Federal Confidentiality of Alcohol and Drug Abuse Patient Records regulations: The Federal rules restrict any use of the information to criminally investigate or prosecute any alcohol or drug abuse patient.[facility] HospitalIn the event this information is protected by the Federal Confidentiality of Alcohol and Drug Abuse Patient Records regulations: The Federal rules restrict any use of the information to criminally investigate or prosecute any alcohol or drug abuse patient.[facility] HospitalIn the event this information is protected by the Federal Confidentiality of Alcohol and Drug Abuse Patient Records regulations: The Federal rules restrict any use of the information to criminally investigate or prosecute any alcohol or drug abuse patient.[facility] HospitalIn the event this information is protected by the Federal Confidentiality of Alcohol and Drug Abuse Patient Records regulations: The Federal rules restrict any use of the information to criminally investigate or prosecute any alcohol or drug abuse patient.[facility] HospitalIn the event this information is protected by the Federal Confidentiality of Alcohol and Drug Abuse Patient Records regulations: The Federal rules restrict any use of the information to criminally investigate or prosecute any alcohol or drug abuse patient.[facility] HospitalIn the event this information is protected by the Federal Confidentiality of Alcohol and Drug Abuse Patient Records regulations: The Federal rules restrict any use of the information to criminally investigate or prosecute any alcohol or drug abuse patient.[facility] HospitalIn the event this information is protected by the Federal Confidentiality of Alcohol and Drug Abuse Patient Records regulations: The Federal rules restrict any use of the information to criminally investigate or prosecute any alcohol or drug abuse patient.[facility] HospitalIn the event this information is protected by the Federal Confidentiality of Alcohol and Drug Abuse Patient Records regulations: The Federal rules restrict any use of the information to criminally investigate or prosecute any alcohol or drug abuse patient.[facility] HospitalIn the event this information is protected by the Federal Confidentiality of Alcohol and Drug Abuse Patient Records regulations: The Federal rules restrict any use of the information to criminally investigate or prosecute any alcohol or drug abuse patient.[facility] HospitalIn the event this information is protected by the Federal Confidentiality of Alcohol and Drug Abuse Patient Records regulations: The Federal rules restrict any use of the information to criminally investigate or prosecute any alcohol or drug abuse patient.[facility] HospitalIn the event this information is protected by the Federal Confidentiality of Alcohol and Drug Abuse Patient Records regulations: The Federal rules restrict any use of the information to criminally investigate or prosecute any alcohol or drug abuse patient.[facility] HospitalIn the event this information is protected by the Federal Confidentiality of Alcohol and Drug Abuse Patient Records regulations: The Federal rules restrict any use of the information to criminally investigate or prosecute any alcohol or drug abuse patient.[facility] HospitalIn the event this information is protected by the Federal Confidentiality of Alcohol and Drug Abuse Patient Records regulations: The Federal rules restrict any use of the information to criminally investigate or prosecute any alcohol or drug abuse patient.[facility] HospitalIn the event this information is protected by the Federal Confidentiality of Alcohol and Drug Abuse Patient Records regulations: The Federal rules restrict any use of the information to criminally investigate or prosecute any alcohol or drug abuse patient.[facility] HospitalIn the event this information is protected by the Federal Confidentiality of Alcohol and Drug Abuse Patient Records regulations: The Federal rules restrict any use of the information to criminally investigate or prosecute any alcohol or drug abuse patient.[facility] HospitalIn the event this information is protected by the Federal Confidentiality of Alcohol and Drug Abuse Patient Records regulations: The Federal rules restrict any use of the information to criminally investigate or prosecute any alcohol or drug abuse patient.[facility] HospitalIn the event this information is protected by the Federal Confidentiality of Alcohol and Drug Abuse Patient Records regulations: The Federal rules restrict any use of the information to criminally investigate or prosecute any alcohol or drug abuse patient.[facility] HospitalIn the event this information is protected by the Federal Confidentiality of Alcohol and Drug Abuse Patient Records regulations: The Federal rules restrict any use of the information to criminally investigate or prosecute any alcohol or drug abuse patient.[facility] HospitalIn the event this information is protected by the Federal Confidentiality of Alcohol and Drug Abuse Patient Records regulations: The Federal rules restrict any use of the information to criminally investigate or prosecute any alcohol or drug abuse patient.[facility] HospitalIn the event this information is protected by the Federal Confidentiality of Alcohol and Drug Abuse Patient Records regulations: The Federal rules restrict any use of the information to criminally investigate or prosecute any alcohol or drug abuse patient.[facility]In the event this information is protected by the Federal Confidentiality of Alcohol and Drug Abuse Patient Records regulations: The Federal rules restrict any use of the information to criminally investigate or prosecute any alcohol or drug abuse patient.[facility] HospitalIn the event this information is protected by the Federal Confidentiality of Alcohol and Drug Abuse Patient Records regulations: The Federal rules restrict any use of the information to criminally investigate or prosecute any alcohol or drug abuse patient.[facility] HospitalIn the event this information is protected by the Federal Confidentiality of Alcohol and Drug Abuse Patient Records regulations: The Federal rules restrict any use of the information to criminally investigate or prosecute any alcohol or drug abuse patient.[facility] HospitalIn the event this information is protected by the Federal Confidentiality of Alcohol and Drug Abuse Patient Records regulations: The Federal rules restrict any use of the information to criminally investigate or prosecute any alcohol or drug abuse patient.[facility] HospitalIn the event this information is protected by the Federal Confidentiality of Alcohol and Drug Abuse Patient Records regulations: The Federal rules restrict any use of the information to criminally investigate or prosecute any alcohol or drug abuse patient.[facility] HospitalIn the event this information is protected by the Federal Confidentiality of Alcohol and Drug Abuse Patient Records regulations: The Federal rules restrict any use of the information to criminally investigate or prosecute any alcohol or drug abuse patient.[facility] HospitalIn the event this information is protected by the Federal Confidentiality of Alcohol and Drug Abuse Patient Records regulations: The Federal rules restrict any use of the information to criminally investigate or prosecute any alcohol or drug abuse patient.[facility] HospitalIn the event this information is protected by the Federal Confidentiality of Alcohol and Drug Abuse Patient Records regulations: The Federal rules restrict any use of the information to criminally investigate or prosecute any alcohol or drug abuse patient.[facility] HospitalIn the event this information is protected by the Federal Confidentiality of Alcohol and Drug Abuse Patient Records regulations: The Federal rules restrict any use of the information to criminally investigate or prosecute any alcohol or drug abuse patient.[facility] HospitalIn the event this information is protected by the Federal Confidentiality of Alcohol and Drug Abuse Patient Records regulations: The Federal rules restrict any use of the information to criminally investigate or prosecute any alcohol or drug abuse patient.[facility] HospitalIn the event this information is protected by the Federal Confidentiality of Alcohol and Drug Abuse Patient Records regulations: The Federal rules restrict any use of the information to criminally investigate or prosecute any alcohol or drug abuse patient.[facility] HospitalIn the event this information is protected by the Federal Confidentiality of Alcohol and Drug Abuse Patient Records regulations: The Federal rules restrict any use of the information to criminally investigate or prosecute any alcohol or drug abuse patient.[facility] HospitalIn the event this information is protected by the Federal Confidentiality of Alcohol and Drug Abuse Patient Records regulations: The Federal rules restrict any use of the information to criminally investigate or prosecute any alcohol or drug abuse patient.[facility] HospitalIn the event this information is protected by the Federal Confidentiality of Alcohol and Drug Abuse Patient Records regulations: The Federal rules restrict any use of the information to criminally investigate or prosecute any alcohol or drug abuse patient.[facility] HospitalIn the event this information is protected by the Federal Confidentiality of Alcohol and Drug Abuse Patient Records regulations: The Federal rules restrict any use of the information to criminally investigate or prosecute any alcohol or drug abuse patient.[facility] HospitalIn the event this information is protected by the Federal Confidentiality of Alcohol and Drug Abuse Patient Records regulations: The Federal rules restrict any use of the information to criminally investigate or prosecute any alcohol or drug abuse patient.[facility] HospitalIn the event this information is protected by the Federal Confidentiality of Alcohol and Drug Abuse Patient Records regulations: The Federal rules restrict any use of the information to criminally investigate or prosecute any alcohol or drug abuse patient.[facility] HospitalIn the event this information is protected by the Federal Confidentiality of Alcohol and Drug Abuse Patient Records regulations: The Federal rules restrict any use of the information to criminally investigate or prosecute any alcohol or drug abuse patient.[facility] HospitalIn the event this information is protected by the Federal Confidentiality of Alcohol and Drug Abuse Patient Records regulations: The Federal rules restrict any use of the information to criminally investigate or prosecute any alcohol or drug abuse patient.[facility] HospitalIn the event this information is protected by the Federal Confidentiality of Alcohol and Drug Abuse Patient Records regulations: The Federal rules restrict any use of the information to criminally investigate or prosecute any alcohol or drug abuse patient.[facility] HospitalIn the event this information is protected by the Federal Confidentiality of Alcohol and Drug Abuse Patient Records regulations: The Federal rules restrict any use of the information to criminally investigate or prosecute any alcohol or drug abuse patient.[facility] Reason for Visit (unrecogniz ed section and content) Reason Comments PT Progress Note Specialty Diagnoses / Procedures Referred By Jinny t Referred To Contact [facility] Diagnoses Primary osteoarthritis of left knee Procedures CONSULT TO PHYSICAL THERAPY PHYSICAL THERAPY EVALUATION HIGH COMPLEX 45 MINS Alhaji Francois PA-C [address] [place] [address] [facility] [address] [place] [address] Referral ID Status Reason Start Date Expiration Date V isits Requested Visits Authorized [id number] Authorized 09/22/2022 09/21/2023 40 40 Reason Comments Refill Request Reason Comments Prescription Refills Reason Comments Rheumatoid Arthritis Reason Comments Medication Question Reason Comments New NI Sleep Consult Obstructive Sleep Apnea Specialty Diagnoses / Procedures Referred By Contac t Referred To Contact Diagnoses NIKO (obstructive sleep apnea) Procedures CONSULT TO SLEEP MEDICINE - ADULT NEW PATIENT VISIT LEVEL 5 Ev Berger, TRASH COLLECTOR.DIE CUTTING MACHINE OPERATOR [address] [place] [address] Referral ID Status Reason Start Date Expiration Date Visits Requested Visits Authorized [id number] Pending Review PCP Requested Referral 09/06/2022 1 1 Reason Comments New DME Company Reason Onset Date Comments Refill Request 03/07/2022 Reason Comments Allied Health Visit MTX injection teachi ng Reason Onset Date Comments Refill Request 03/05/2022 Reason Comments Arthritis Specialty Diagnoses / Procedures Referred By Contac t Referred To Contact Diagnoses Rheumatoid arthritis involving multiple sites with positive rheumatoid factor (HCC) Procedures CONSULT TO INTEGRATIVE MEDICINE OFFICE/OUTPATIENT [facility] 60-74 MINUTES Mino Harris MD [address] [place] [address] Referral ID Status Reason Start Date Expiration Date Visits Requested Visits Authorized [id number] Pending Review PCP Requested Referral 03/21/2022 02/19/2023 1 1 Reason Comments GERD Constipation meds Specialty Diagnoses / Procedures Referred By Contac t Referred To Contact Gastroenterology Diagnoses History of esophageal stricture Gastroesophageal reflux disease without esophagitis Procedures CONSULT TO GASTROENTEROLOGY OFFICE/OUTPATIENT [facility] 60-74 MINUTES Mino Harris MD [address] [place] [address] Referral ID Status Reason Start Date Expiration Date Visits Requested Visits Authorized [id number] Pending Review PCP Requested Referral 02/25/2022 02/25/2023 1 1 Reason Comments Symptoms Reason Comments Radio Gen A21 Specialty Diagnoses / Procedures Referred By Contac t Referred To Contact XR IMAGING Diagnoses Pain Procedures XR KNEE GENERAL 4V AP BOTH/PA BOTH/LAT/MERC LEFT RADIOLOGIC EXAM KNEE COMPLETE 4/MORE VIEWS Anival Ambriz MD [address] [place] [address] Xr Imaging Referral ID Status Reason Start Date Expiration Date V isits Requested Visits Authorized [id number] Closed Auto-Generate d Referral 03/13/2022 04/12/2023 1 1 Reason Comments Opened In Error Reason Comments Consult Reason Comments Appointment Reason Comments Non-Chemotherapy Treatment Specialty Diagnoses / Procedures Referred By Contac t Referred To Contact Diagnoses Iron deficiency anemia, unspecified iron deficiency anemia type Procedures [id number] SUCROSE Lilibeth Bolivar, TRASH COLLECTOR.LINOTYPE MACHINIST APPRENTICE [address] [place] [address] [facility] [address] [place] [address] Referral ID Status Reason Start Date Expiration Date V isits Requested Visits Authorized [id number] Authorized 06/07/2022 09/21/2022 99 99 Reason Comments [place] Paperwork Forms completed and faxed to employer. Reason Comments Home Care CONFIRMATION CALL Reason Onset Date Comments Refill Request 06/24/2022 Reason Comments Rheumatoid Arthritis Reason Comments Home Care Medication question Reason Comments Patient Question Patient Update Reason Comments Medication Authorization kevzara Reason Comments Patient Question Reason Onset Date Comments Refill Request 08/07/2022 Refill Request 08/09/2022 Reason Comments Contrast Allergy Specialty Diagnoses / Procedures Referred By Contac t Referred To Contact Allergy Diagnoses Allergy to imaging contrast media Procedures CONSULT TO ALLERGY/IMMUNOLOGY OFFICE/OUTPATIENT [facility] 60-74 MINUTES Mino Harris MD [address] [place] [address] Referral ID Status Reason Start Date Expiration Date Visits Requested Visits Authorized [id number] Pending Review PCP Requested Referral 2 08/08/2023 1 1 Reason Comments Patient Update Reason Comments Medication Problem Reason Comments Rheumatoid Arthritis Reason Comments COVID 19 infection Influenza A infection Acute asthmatic bronchitis Reason Comments COVID positive symptoms persisting Reason Comments GERD Per 10/08 Convo in art BRBPR need colonoscopy- Pt also states she has pouches down there on the outside Reason Comments Consult Reason Comments Home Care Confirmation Call Reason Comments Pain Reason Comments Home Care Bandage removal/OP P T orders Reason Comments Home Care Knee pain Reason Onset Date Comments Refill Request 12/06/2022 Reason Comments Post Op Reason Comments PT Eval Patient Education Reason Comments Derm Problem Reason Comments Physical Therapy Specialty Diagnoses / Procedures [facility] To Contact [facility] Diagnoses Primary osteoarthritis of left knee Procedures CONSULT TO PHYSICAL THERAPY PHYSICAL THERAPY EVALUATION HIGH COMPLEX 45 MINS Alhaji Francois, KATH [address] [place] [address] [facility] [place] [address] [place] [address] Reason Comments Derm Problem mole removal on left upper chest Reason Comments Orders Reason Onset Date Comments Refill Request 02/03/2023 Reason Comments Post Op Knee Replacement Reason Comments Future Appointment Reason Onset Date Comments Physical Breast Problem 02/26/2023 Mammogram at [facility] Reason Comments Rheumatoid Arthritis Reason Onset Date Comments Refill Request 08/20/2023 Reason Comments Results Reason Comments Coordination of care Reason Comments Procedure Follow Up EGD 08/29/23 H pylori 11/10/23 Reason Comments Patient Update Patient Question Reason Onset Date Comments Refill Request 04/29/2024 Lab Order 04/29/2024 Reason Comments Physical Reason Comments Med Change Request Reason Comments Orders Patient Update Reason Comments Patient Update Patient Question Reason Comments Head Congestion chest congestion, co ugh x 9 days Reason Comments Radio Gen A21 Specialty Diagnoses / Procedures [facility] Referred To Contact XR IMAGING Diagnoses Rheumatoid arthritis involving multiple sites with positive rheumatoid factor (HCC) Procedures XR FOOT SURVEY ARTHRITIS 1V AP BILATERAL JOINT SURVEY SINGLE VIEW 2 OR MORE JOINTS Mino Harris MD [address] [place] [address] Phone: tel: fax: [facility] [place] [phone] Referral ID Status Reason Start Date Expiration Date V isits Requested Visits Authorized [id number] Closed Auto-Generate d Referral 12/15/2024 01/14/2026 1 1 Reason Onset Date Comments Refill Request 12/31/2024 Care Teams (unrecognized sec tion and content) Child And Adolescent Psychologist Relationship Specialty Start Date End Date Timbo Bright MD [address] [facility] [place] [address] PCP - General Internal Medicine 08/10/21 Anival Ambriz MD [address] [place] [address] Home Care Physician Orthopedics 07/03/21 Anival Ambriz MD [address] [place] [address] Referring Orthopedics 07/03/21 Cris Del Valle, PT [address] [place] [address] [employer] Post Acute Care 07/03/21 Child And Adolescent Psychologist Relationship Specialty Start Date End Date Timbo Bright MD [address] [place] [address] PCP - General Internal Medicine 08/10/21 Anival Ambriz MD [address] [place] [address] Home Care Physician Orthopedics 07/03/21 Anival Ambriz MD [address] [place] [address] Referring Orthopedics 07/03/21 Cris Del Valle, PT [address] [place] [address] [employer] Post Acute Care 07/03/21 Child And Adolescent Psychologist Relationship Specialty Start Date End Date Timbo Bright MD [address] [place] [address] PCP - General Internal Medicine 08/10/21 Anival Ambriz MD [address] [place] [address] Home Care Physician Orthopedics 07/03/21 Anival Ambriz MD [address] [place] [address] Referring Orthopedics 07/03/21 Cris Del Valle, PT [address] [place] [address] [employer] Post Acute Care 07/03/21 Child And Adolescent Psychologist Relationship Specialty Start Date End Date Timbo Bright MD [address] [facility] [place] [address] PCP - General Internal Medicine 08/10/21 Anival Ambriz MD [address] [place] [address] Home Care Physician Orthopedics 07/03/21 Anival Ambriz MD [address] [place] [address] Referring Orthopedics 07/03/21 Cris Del Valle, PT [address] [place] [address] [employer] Post Acute Care 07/03/21 Child And Adolescent Psychologist Relationship Specialty Start Date End Date Wilson Peguero MD [address] [facility] [place] [address] PCP - General Family Practice 12/27/20 08/07/21 Timbo Bright MD [address] [facility] [place] [address] PCP - General Internal Medicine 08/10/21 Anival Ambriz MD [address] [place] [address] Home Care Physician Orthopedics 07/03/21 Aniavl Ambriz MD [address] [place] [address] Referring Orthopedics 07/03/21 Cris Del Valle, PT [address] [place] [address] [employer] Post Acute Care 07/03/21 Child And Adolescent Psychologist Relationship Specialty Start Date End Date Timbo Bright MD [address] [facility] [place] [address] PCP - General Internal Medicine 08/10/21 Anival Ambriz MD [address] [facility] [place] [address] Home Care Physician Orthopedics 07/03/21 Anival Ambriz MD [address] [place] [address] Referring Orthopedics 07/03/21 Cris Del Valle, PT [address] [place] [address] [employer] Post Acute Care 07/03/21 Child And Adolescent Psychologist Relationship Specialty Start Date End Date Timbo Bright MD [address] [place] [address] PCP - General Internal Medicine 08/10/21 Anival Ambriz MD [address] [place] [address] Home Care Physician Orthopedics 07/03/21 Anival Ambriz MD [address] [place] [address] Referring Orthopedics 07/03/21 Cris Del Valle, PT [address] [place] [address] [employer] Post Acute Care 07/03/21 Child And Adolescent Psychologist Relationship Specialty Start Date End Date Timbo Bright MD [address] [facility] [place] [address] PCP - General Internal Medicine 08/10/21 Anival Ambriz MD [address] [place] [address] Home Care Physician Orthopedics 07/03/21 Anival Ambriz MD [address] [place] [address] Referring Orthopedics 07/03/21 Cris Del Valle, PT [address] [place] [address] [employer] Post Acute Care 07/03/21 Child And Adolescent Psychologist Relationship Specialty Start Date End Date Timbo Bright MD [address] [facility] [place] [address] PCP - General Internal Medicine 08/10/21 Anival Ambriz MD [address] [place] [address] Home Care Physician Orthopedics 07/03/21 Anival Ambriz MD [address] [place] [address] Referring Orthopedics 07/03/21 Cris Del Valle, PT [address] [place] [address] [employer] Post Acute Care 07/03/21 Child And Adolescent Psychologist Relationship Specialty Start Date End Date Timbo Bright MD [address] [facility] [place] [address] PCP - General Internal Medicine 08/10/21 Anival Ambriz MD [address] [place] [address] Home Care Physician Orthopedics 07/03/21 Anival Ambriz MD [address] [place] [address] Referring Orthopedics 07/03/21 Cris Del Valle, PT [address] [place] [address] [employer] Post Acute Care 07/03/21 Child And Adolescent Psychologist Relationship Specialty Start Date End Date Timbo Bright MD [address] [facility] [place] [address] PCP - General Internal Medicine 08/10/21 Anival Ambriz MD [address] [place] [address] Home Care Physician Orthopedics 07/03/21 Anival Ambriz MD [address] [place] [address] Referring Orthopedics 07/03/21 Cris Del Valle, PT [address] [place] [address] [employer] Post Acute Care 07/03/21 Child And Adolescent Psychologist Relationship Specialty Start Date End Date Timbo Bright MD [address] [facility] [place] [address] PCP - General Internal Medicine 08/10/21 Anival Ambriz MD [address] [place] [address] Home Care Physician Orthopedics 07/03/21 Anival Ambriz MD [address] [place] [address] Referring Orthopedics 07/03/21 Cris Del Valle, PT [address] [place] [address] [employer] Post Acute Care 07/03/21 Child And Adolescent Psychologist Relationship Specialty Start Date End Date Timbo Bright MD [address] [place] [address] PCP - General Internal Medicine 08/10/21 Anival Ambriz MD [address] [place] [address] Home Care Physician Orthopedics 07/03/21 Anival Ambriz MD [address] [place] [address] Referring Orthopedics 07/03/21 Cris Del Valle, PT [address] [place] [address] [employer] Post Acute Care 07/03/21 Child And Adolescent Psychologist Relationship Specialty Start Date End Date Timbo Bright MD [address] [place] [address] PCP - General Internal Medicine 08/10/21 Anival Ambriz MD [address] [place] [address] Home Care Physician Orthopedics 07/03/21 Anival Ambriz MD [address] [facility] [address] Referring Orthopedics 07/03/21 Cris Del Valle, PT [address] [place] [address] [employer] Post Acute Care 07/03/21 Child And Adolescent Psychologist Relationship Specialty Start Date End Date Timbo Bright MD [address] [place] [address] PCP - General Internal Medicine 08/10/21 Anival Ambriz MD [address] [place] [address] Home Care Physician Orthopedics 07/03/21 Anival Ambriz MD [address] [facility] [place] [address] Referring Orthopedics 07/03/21 Cris Del Valle, PT [address] [place] [address] [employer] Post Acute Care 07/03/21 Child And Adolescent Psychologist Relationship Specialty Start Date End Date Timbo Bright MD [address] [place] [address] PCP - General Internal Medicine 08/10/21 Anival Ambriz MD [address] [place] [address] Home Care Physician Orthopedics 07/03/21 Anival Ambriz MD [address] [place] [address] Referring Orthopedics 07/03/21 Cris Del Valle, PT [address] [place] [address] [employer] Post Acute Care 07/03/21 Child And Adolescent Psychologist Relationship Specialty Start Date End Date Timbo Bright MD [address] [facility] [place] [address] PCP - General Internal Medicine 08/10/21 Anival Ambriz MD [address] [place] [address] Home Care Provider Orthopedics 07/03/21 Anival Ambriz MD [address] [place] [address] Referring Orthopedics 07/03/21 Cris Del Valle, PT [address] [place] [address] [employer] Post Acute Care 07/03/21 Child And Adolescent Psychologist Relationship Specialty Start Date End Date Timbo Bright MD [address] [facility] [place] [address] PCP - General Internal Medicine 08/10/21 Anival Ambriz MD [address] [place] [address] Home Care Provider Orthopedics 07/03/21 Anival Ambriz MD [address] [place] [address] Referring Orthopedics 07/03/21 Cris Del Valle, PT [address] [place] [address] [employer] Post Acute Care 07/03/21 Child And Adolescent Psychologist Relationship Specialty Start Date End Date Timbo Bright MD [address] [place] [address] PCP - General Internal Medicine 08/10/21 Anival Ambriz MD [address] [place] [address] Home Care Provider Orthopedics 07/03/21 Anival Ambriz MD [address] [place] [address] Referring Orthopedics 07/03/21 Cris Del Valle, PT [address] [place] [address] [employer] Post Acute Care 07/03/21 Child And Adolescent Psychologist Relationship Specialty Start Date End Date Timbo Bright MD [address] [facility] [place] [address] PCP - General Internal Medicine 08/10/21 Anival Ambriz MD [address] [place] [address] Home Care Provider Orthopedics 07/03/21 Anival Ambriz MD [address] [place] [address] Referring Orthopedics 07/03/21 Cris Del Valle, PT [address] [place] [address] [employer] Post Acute Care 07/03/21 Child And Adolescent Psychologist Relationship Specialty Start Date End Date Timbo Bright MD [address] [place] [address] PCP - General Internal Medicine 08/10/21 Anival Ambriz MD [address] [place] [address] Home Care Provider Orthopedics 07/03/21 Anival Ambriz MD [address] [place] [address] Referring Orthopedics 07/03/21 Cris Del Valle, PT [address] [facility] [place] [address] [employer] Post Acute Care 07/03/21 Child And Adolescent Psychologist Relationship Specialty Start Date End Date Timbo Bright MD [address] [place] [address] PCP - General Internal Medicine 08/10/21 Anival Ambriz MD [address] [place] [address] Home Care Provider Orthopedics 07/03/21 Anival Ambriz MD [address] [place] [address] Referring Orthopedics 07/03/21 Cris Del Valle, PT [address] [facility] [place] [address] [employer] Post Acute Care 07/03/21 Child And Adolescent Psychologist Relationship Specialty Start Date End Date Timbo Bright MD [address] [place] [address] PCP - General Internal Medicine 08/10/21 Cris Del Valle, PT [address] [facility] [place] [address] [employer] Post Acute Care 07/03/21 Anival Ambriz MD [address] [place] [address] Home Care Provider Orthopedics 06/19/22 [place] [address] [place] [address] Referring Orthopedics 06/19/22 Souleymane Celis, PT [address] [place] [address] [employer] Post Acute Care 06/19/22 Child And Adolescent Psychologist Relationship Specialty Start Date End Date Timbo Bright MD [address] [place], [place] [address] PCP - General Internal Medicine 08/10/21 Cris Del Valle, PT [address] [place] [address] [employer] Post Acute Care 07/03/21 Anival Ambriz MD [address] [place] [address] Home Care Provider Orthopedics 06/19/22 Phoenix Zapien, [place] [address] Referring Orthopedics 06/19/22 Souleymane Celis, PT [address] [place] [address] [employer]er Post Acute Care 06/19/22 Child And Adolescent Psychologist Relationship Specialty Start Date End Date Timbo Bright MD [address] [place], [place] [id number] PCP - General Internal Medicine 08/10/21 Cris Del Valle, PT [address] [place] [address] [employer]er Post Acute Care 07/03/21 Anival Ambriz MD [address] [place] [address] Home Care Provider Orthopedics 06/19/22 Phoenix Zapien, [place] [address] Referring Orthopedics 06/19/22 Souleymane Celis, PT [address] [place] [address] [employer] Post Acute Care 06/19/22 Child And Adolescent Psychologist Relationship Specialty Start Date End Date Timbo Bright MD [address] [place], [place] [address] PCP - General Internal Medicine 08/10/21 Cris Del Valle, PT [address] [place] [address] [employer] Post Acute Care 07/03/21 Anival Ambriz MD [address] [place] [address] Home Care Provider Orthopedics 06/19/22 Phoenix Zapien, [place] [address] Referring Orthopedics 06/19/22 Souleymane Celis, PT [address] [place] [address] [employer] Post Acute Care 06/19/22 Child And Adolescent Psychologist Relationship Specialty Start Date End Date Timbo Bright MD [address] [place], [place] [id number] PCP - General Internal Medicine 08/10/21 Cris Del Valle, PT [address] [place] [address] [employer] Post Acute Care 07/03/21 Anival Ambriz MD [address] [place] [address] Home Care Provider Orthopedics 06/19/22 Phoenix Zapien, [place] [address] Referring Orthopedics 06/19/22 Souleymane Celis, PT [address] [facility] [place] [address] [employer] Post Acute Care 06/19/22 Child And Adolescent Psychologist Relationship Specialty Start Date End Date Timbo Bright MD [address] [place] [address] PCP - General Internal Medicine 08/10/21 Cris Del Valle, PT [address] [facility] [place] [address] [employer] Post Acute Care 07/03/21 Anival Ambriz MD [address] [place] [address] Home Care Provider Orthopedics 06/19/22 [place] [address] [place] [address] Referring Orthopedics 06/19/22 Souleymane Celis, PT [address] [facility] [place] [address] [employer] Post Acute Care 06/19/22 Child And Adolescent Psychologist Relationship Specialty Start Date End Date Timbo Bright MD [address] [place] [address] PCP - General Internal Medicine 08/10/21 Anival Ambriz MD [address] [facility] [address] Home Care Provider Orthopedics 07/03/21 06/18/22 Anival Ambriz MD [address] [place] [address] Referring Orthopedics 07/03/21 06/18/22 Cris Del Valle, PT [address] [facility] [place] [address] [employer] Post Acute Care 07/03/21 Child And Adolescent Psychologist Relationship Specialty Start Date End Date Timbo Bright MD [address] [place], [place] 212201 PCP - General Internal Medicine 08/10/21 Cris Del Valle, PT [address] [place] [address] [employer] Post Acute Care 07/03/21 Anival Ambriz MD [address] [place] [address] Home Care Provider Orthopedics 06/19/22 [place] [address] Referring Orthopedics 06/19/22 Souleymane Celis, PT [address] [place] [address] [employer] Post Acute Care 06/19/22 Child And Adolescent Psychologist Relationship Specialty Start Date End Date Timbo Bright MD [address] [place] [address] PCP - General Internal Medicine 08/10/21 Cris Del Valle, PT [address] [place] [address] [employer] Post Acute Care 07/03/21 Anival Ambriz MD [address] [place] [address] Home Care Provider Orthopedics 06/19/22 [place] [address] Referring Orthopedics 06/19/22 Souleymane Celis, PT [address] [place] [address] [employer] Post Acute Care 06/19/22 Child And Adolescent Psychologist Relationship Specialty Start Date End Date Timbo Bright MD [address] [place], [place] 280651 PCP - General Internal Medicine 08/10/21 Cris Del Valle, PT [address] [place] [address] [employer] Post Acute Care 07/03/21 Anival Ambriz MD [address] [place] [address] Home Care Provider Orthopedics 06/19/22 [place] [address] Referring Orthopedics 06/19/22 Souleymane Celis, PT [address] [place] [address] [employer] Post Acute Care 06/19/22 Child And Adolescent Psychologist Relationship Specialty Start Date End Date Timbo Bright MD [address] [place] [address] PCP - General Internal Medicine 08/10/21 Cris Del Valle, PT [address] [place] [address] [employer] Post Acute Care 07/03/21 Anival Ambriz MD [address] [place] [address] Home Care Provider Orthopedics 06/19/22 [place] [address] Referring Orthopedics 06/19/22 Souleymane Celis, PT [address] [place] [address] [employer] Post Acute Care 06/19/22 Child And Adolescent Psychologist Relationship Specialty Start Date End Date Timbo Bright MD [address] [place], [place] 319861 PCP - General Internal Medicine 08/10/21 Cris Del Valle, PT [address] [place] [address] [employer] Post Acute Care 07/03/21 Anival Ambriz MD [address] [place] [address] Home Care Provider Orthopedics 06/19/22 Phoenix Zapien, [place] [address] Referring Orthopedics 06/19/22 Souleymane Celis, PT [address] [place] [address] [employer] Post Acute Care 06/19/22 Child And Adolescent Psychologist Relationship Specialty Start Date End Date Timbo Bright MD [address] [place] [address] PCP - General Internal Medicine 08/10/21 Cris Del Valle, PT [address] [place] [address] [employer] Post Acute Care 07/03/21 Anival Ambriz MD [address] [place] [address] Home Care Provider Orthopedics 06/19/22 Phoenix Zapien, [place] [address] Referring Orthopedics 06/19/22 Souleymane Celis, PT [address] [place] [address] [employer] Post Acute Care 06/19/22 Child And Adolescent Psychologist Relationship Specialty Start Date End Date Timbo Bright MD [address] [place], [place] 337691 PCP - General Internal Medicine 08/10/21 Cris Del Valle, PT [address] [place] [address] [employer] Post Acute Care 07/03/21 Anival Ambriz MD [address] [place] [address] Home Care Provider Orthopedics 06/19/22 [place] [address] Referring Orthopedics 06/19/22 Souleymane Celis, PT [address] [facility] [place] [address] [employer] Post Acute Care 06/19/22 Child And Adolescent Psychologist Relationship Specialty Start Date End Date Timbo Bright MD [address] [place] [address] PCP - General Internal Medicine 08/10/21 Anival Ambriz MD [address] [place] [address] Home Care Provider Orthopedics 07/03/21 06/18/22 Anival Ambriz MD [address] [place] [address] Referring Orthopedics 07/03/21 06/18/22 Cris Del Valle, PT [address] [facility] [place] [address] [employer] Post Acute Care 07/03/21 Anival Ambriz MD [address] [place] [address] Home Care Provider Orthopedics 06/19/22 Phoenix Zapien, [place] [address] Referring Orthopedics 06/19/22 Souleymane Celis, PT [address] [place] [address] [employer] Post Acute Care 06/19/22 Child And Adolescent Psychologist Relationship Specialty Start Date End Date Timbo Bright MD [address] [place] [address] PCP - General Internal Medicine 08/10/21 Cris Del Valle, PT [address] [place] [address] [employer] Post Acute Care 07/03/21 Anival Ambriz MD [address] [place] [address] Home Care Provider Orthopedics 06/19/22 Phoenix Zapien, [place] [address] Referring Orthopedics 06/19/22 Souleymane Celis, PT [address] [place] [address] [employer] Post Acute Care 06/19/22 Child And Adolescent Psychologist Relationship Specialty Start Date End Date Timbo Bright MD [address] [place] [address] PCP - General Internal Medicine 08/10/21 Cris Del Valle, PT [address] [place] [address] [employer] Post Acute Care 07/03/21 Anival Ambriz MD [address] [place] [address] Home Care Provider Orthopedics 06/19/22 Phoenix Zapien, [place] [address] Referring Orthopedics 06/19/22 Souleymane Celis, PT [address] [place] [address] [employer] Post Acute Care 06/19/22 Child And Adolescent Psychologist Relationship Specialty Start Date End Date Timbo Bright MD [address] [place] [address] PCP - General Internal Medicine 08/10/21 Cris Del Valle, PT [address] [place] [address] [employer] Post Acute Care 07/03/21 Anival Ambriz MD [address] [place] [address] Home Care Provider Orthopedics 06/19/22 Phoenix Zapien, [place] [address] Referring Orthopedics 06/19/22 Souleymane Celis, PT [address] [place] [address] [employer] Post Acute Care 06/19/22 Child And Adolescent Psychologist Relationship Specialty Start Date End Date Timbo Bright MD [address] [place] [address] PCP - General Internal Medicine 08/10/21 Cris Del Valle, PT [address] [place] [address] [employer] Post Acute Care 07/03/21 Anival Ambriz MD [address] [place] [address] Home Care Provider Orthopedics 06/19/22 Phoenix Zapien, [place] [address] Referring Orthopedics 06/19/22 Souleymane Celis, PT [address] [place] [address] [employer] Post Acute Care 06/19/22 Child And Adolescent Psychologist Relationship Specialty Start Date End Date Timbo Bright MD [address] [place] [address] PCP - General Internal Medicine 08/10/21 Cris Del Valle, PT [address] [place] [address] [employer] Post Acute Care 07/03/21 Anival Ambriz MD [address] [place] [address] Home Care Provider Orthopedics 06/19/22 Phoenix Zapien, [place] [address] Referring Orthopedics 06/19/22 Souleymane Celis, PT [address] [place] [address] [employer] Post Acute Care 06/19/22 Child And Adolescent Psychologist Relationship Specialty Start Date End Date Timbo Bright MD [address] [place], [place] 357051 PCP - General Internal Medicine 08/10/21 Cris Del Valle, PT [address] [place] [address] [employer] Post Acute Care 07/03/21 Anival Ambriz MD [address] [place] [address] Home Care Provider Orthopedics 06/19/22 Phoenix Zapien, [place] [address] Referring Orthopedics 06/19/22 Souleymane Celis, PT [address] [place] [address] [employer] Post Acute Care 06/19/22 Child And Adolescent Psychologist Relationship Specialty Start Date End Date Timbo Bright MD [address] [place] [address] PCP - General Internal Medicine 08/10/21 Cris Del Valle, PT [address] [place] [address] [employer] Post Acute Care 07/03/21 Anival Ambriz MD [address] [place] [address] Home Care Provider Orthopedics 06/19/22 Phoenix Zapien, [place] [address] Referring Orthopedics 06/19/22 Souleymane Celis, PT [address] [place] [address] [employer]er Post Acute Care 06/19/22 Child And Adolescent Psychologist Relationship Specialty Start Date End Date Timbo Bright MD [address] [place], [place] 423201 PCP - General Internal Medicine 08/10/21 Cris Del Valle, PT [address] [place] [address] [employer]er Post Acute Care 07/03/21 Anival Ambriz MD [address] [place] [address] Home Care Provider Orthopedics 06/19/22 [place] [address] [place] [address] Referring Orthopedics 06/19/22 Souleymane Celis, PT [address] [place] [address] [employer] Post Acute Care 06/19/22 Child And Adolescent Psychologist Relationship Specialty [place] [address] [place] [address] [id number] PCP - General Internal Medicine 08/10/21 [place] [address] [place] [address] Rheumatology 11/09/22 [place] [address] [place] [address] Home Care Provider Orthopedics 11/18/22 Néstor Wilson MD [address] [place] [address] Referring Orthopedics 11/18/22 Child And Adolescent Psychologist Relationship Specialty Start Date End Date Timbo Bright MD [address] [place] [address] PCP - General Internal Medicine 08/10/21 Mino Harris MD [address] [place] [address] Rheumatology 11/09/22 Anival Ambriz MD [address] [place] [address] Home Care Provider Orthopedics 11/18/22 Néstor Wilson MD [address] [address] Referring Orthopedics 11/18/22 Cris Del Valle, PT [address] [place] [address] [employer] Post Acute Care 11/19/22 Child And Adolescent Psychologist Relationship Specialty Start Date End Date Timbo Bright MD [address] [place], [place] 913391 PCP - General Internal Medicine 08/10/21 Mino Harris MD [address] [place] [address] Rheumatology 11/09/22 Anival Ambriz MD [address] [place] [address] Home Care Provider Orthopedics 11/18/22 Néstor Wilson MD [address] [place] [address] Referring Orthopedics 11/18/22 Cris Del Valle, PT [address] [place] [address] [employer] Post Acute Care 11/19/22 Child And Adolescent Psychologist Relationship Specialty Start Date End Date Timbo Birght MD [address] [place], [place] 097071 PCP - General Internal Medicine 08/10/21 [place] [address] [place] [address] Rheumatology 11/09/22 Anival Ambriz MD [address] [place] [address] Home Care Provider Orthopedics 11/18/22 Néstor Wilson MD [facility] [address] [address] Referring Orthopedics 11/18/22 Cris Del Valle, PT [address] [place] [address] [employer]er Post Acute Care 11/19/22 Child And Adolescent Psychologist Relationship Specialty Start Date End Date Timbo Bright MD [address] [place] [address] PCP - General Internal Medicine 08/10/21 Mino Harris MD [address] [place] [address] Rheumatology 11/09/22 [place] [address] [place] [address] Home Care Provider Orthopedics 11/18/22 Né[place] [address] [place] [address] Referring Orthopedics 11/18/22 Cris Del Valle, PT [address] [place] [address] [employer] Post Acute Care 11/19/22 Child And Adolescent Psychologist Relationship Specialty Start Date End Date Timbo Bright MD [address] [place] [address] PCP - General Internal Medicine 08/10/21 Mino Harris MD [address] [place] [address] Rheumatology 11/09/22 Anival Ambriz MD [address] [place] [address] Home Care Provider Orthopedics 11/18/22 Néstor Wilson MD [address] [address] Referring Orthopedics 11/18/22 Cris Del Valle, PT [address]01 [place] [address] [employer] Post Acute Care 11/19/22 Child And Adolescent Psychologist Relationship Specialty Start Date End Date Timbo Bright MD [address]40 [place] [address] PCP - General Internal Medicine 08/10/21 [place] [address] [place] [address] Rheumatology 11/09/22 Anival Ambriz MD [address] [place] [address] Home Care Provider Orthopedics 11/18/22 Né[place] [address] [place] [address] Referring Orthopedics 11/18/22 Cris Del Valle, PT [address] [place] [address] [employer] Post Acute Care 11/19/22 Child And Adolescent Psychologist Relationship Specialty Start Date End Date Timbo Bright MD [address] [place] [address] PCP - General Internal Medicine 08/10/21 Mino Harris MD [address] [place] [address] Rheumatology 11/09/22 Anival Ambriz MD [address] [place] [address] Home Care Provider Orthopedics 11/18/22 Néstor Wilson MD [address] [address] Referring Orthopedics 11/18/22 Cris Del Valle, PT [address] [place] [address] [employer]er Post Acute Care 11/19/22 Child And Adolescent Psychologist Relationship Specialty Start Date End Date Timbo Bright MD [address] [place] [address] PCP - General Internal Medicine 08/10/21 [place] [address] [place] [address] Rheumatology 11/09/22 Anival Ambriz MD [address] [place] [address] Home Care Provider Orthopedics 11/18/22 Néstor Wilson MD [address] [place] [address] Referring Orthopedics 11/18/22 Cris Del Valle, PT [address] [place] [address] [employer] Post Acute Care 11/19/22 Child And Adolescent Psychologist Relationship Specialty Start Date End Date Timbo Bright MD [address] [place] [address] PCP - General Internal Medicine 08/10/21 Mino Harris MD [address] [place] [address] Rheumatology 11/09/22 Anival Ambriz MD [address] [place] [address] Home Care Provider Orthopedics 11/18/22 Néstor Wilson MD [address] [address] Referring Orthopedics 11/18/22 Cris Del Valle, PT [address] [place] [address] [employer]er Post Acute Care 11/19/22 Child And Adolescent Psychologist Relationship Specialty Start Date End Date Timbo Bright MD [address] [place] [address] PCP - General Internal Medicine 08/10/21 Mino Harris MD [address] [place] [address] Rheumatology 11/09/22 Anival Ambriz MD [address] [place] [address] Home Care Provider Orthopedics 11/18/22 Né[place] [address] [place] [address] Referring Orthopedics 11/18/22 Cris Del Valle, PT [address] [place] [address] [employer] Post Acute Care 11/19/22 Child And Adolescent Psychologist Relationship Specialty Start Date End Date Timbo Bright MD [address] [place] [address] PCP - General Internal Medicine 08/10/21 Mino Harris MD [address] [place] [address] Rheumatology 11/09/22 Anival Ambriz MD [address] [place] [address] Home Care Provider Orthopedics 11/18/22 Néstor Wilson MD [address] [address] Referring Orthopedics 11/18/22 Cris Del Valle, PT [address] [place] [address] [employer] Post Acute Care 11/19/22 Child And Adolescent Psychologist Relationship Specialty Start Date End Date Timbo Bright MD [address] [place], [place] 205961 PCP - General Internal Medicine 08/10/21 Mino Harris MD [address] [place], [place] 8234595 Rheumatology 11/09/22 Anival Ambriz MD [address] [place] [address] Home Care Provider Orthopedics 11/18/22 Néstor Wilson MD [address] [place] [address] Referring Orthopedics 11/18/22 Cris Del Valle, PT [address] [place] [address] [employer] Post Acute Care 11/19/22 Child And Adolescent Psychologist Relationship Specialty Start Date End Date Timbo Bright MD [address] [place], [place] 733141 PCP - General Internal Medicine 08/10/21 Mino Harris MD [address] [place] [address] Rheumatology 11/09/22 Anival Ambriz MD [address] [place] [address] Home Care Provider Orthopedics 11/18/22 Néstor Wilson MD [address] [address] Referring Orthopedics 11/18/22 Cris Del Valle, PT [address] [place] [address] [employer] Post Acute Care 11/19/22 Child And Adolescent Psychologist Relationship Specialty Start Date End Date Timbo Bright MD [address] [place] [address] PCP - General Internal Medicine 08/10/21 Mino Harris MD [address] [place] [address] Rheumatology 11/09/22 Anival Ambriz MD [address] [place] [address] Home Care Provider Orthopedics 11/18/22 Né[place] [address] [place] [address] Referring Orthopedics 11/18/22 Cris Del Valle, PT [address] [place] [address] [employer] Post Acute Care 11/19/22 Child And Adolescent Psychologist Relationship Specialty Start Date End Date Timbo Bright MD [address] [place] [address] PCP - General Internal Medicine 08/10/21 Mino Harris MD [address] [place] [address] Rheumatology 11/09/22 Anival Ambriz MD [address] [place] [address] Home Care Provider Orthopedics 11/18/22 Néstor Wilson MD [address] [address] Referring Orthopedics 11/18/22 Cris Del Valle, PT [address] [place] [address] [employer] Post Acute Care 11/19/22 Child And Adolescent Psychologist Relationship Specialty Start Date End Date Timbo Bright MD [address] [place] [address] PCP - General Internal Medicine 08/10/21 Mino Harris MD [address] [place] [address] Rheumatology 11/09/22 Anival Ambriz MD [address] [place] [address] Home Care Provider Orthopedics 11/18/22 Né[place] [address] [place] [address] Referring Orthopedics 11/18/22 Cris Del Valle, PT 3861 [place] [address] [employer] Post Acute Care 11/19/22 Child And Adolescent Psychologist Relationship Specialty Start Date End Date Timbo Bright MD [address] [place] [address] PCP - General Internal Medicine 08/10/21 [place] [address] [place] [address] Rheumatology 11/09/22 Anival Ambriz MD [address] [place] [address] Home Care Provider Orthopedics 11/18/22 Néstor Wilson MD [address] [address] Referring Orthopedics 11/18/22 Cris Del Valle, PT [address] [place] [address] [employer] Post Acute Care 11/19/22 Child And Adolescent Psychologist Relationship Specialty Start Date End Date Timbo Bright MD [address] [place] [address] PCP - General Internal Medicine 08/10/21 [place] [address] [place] [address] Rheumatology 11/09/22 Anival Ambriz MD [address] [place] [address] Home Care Provider Orthopedics 11/18/22 Néstor Wilson MD [address] [address] Referring Orthopedics 11/18/22 Cris Del Valle, PT [address] [place] [address] [employer] Post Acute Care 11/19/22 Child And Adolescent Psychologist Relationship Specialty Start Date End Date Timbo Bright MD [facility] [place] [address] PCP - General Internal Medicine 08/10/21 [place] [address] [place] [address] Rheumatology 11/09/22 Anival Ambriz MD [address] [place] [address] Home Care Provider Orthopedics 11/18/22 Néstor Wilson MD [address] [address] Referring Orthopedics 11/18/22 Cris Del Valle, PT [address] [place] [address] [employer] Post Acute Care 11/19/22 Child And Adolescent Psychologist Relationship Specialty Start Date End Date Timbo Bright MD [address] [place] [address], [place] [address] PCP - General Internal Medicine 08/10/21 Mino Harris MD [address] [place] [address] Rheumatology 11/09/22 Anival Ambriz MD [address] [place] [address] Home Care Provider Orthopedics 11/18/22 Néstor Wilson MD [address] [place] [address] Referring Orthopedics 11/18/22 Cris Del Valle, PT [address] [place] [address] [employer] Post Acute Care 11/19/22 Child And Adolescent Psychologist Relationship Specialty Start Date End Date Timbo Bright MD [address] [place] [address] PCP - General Internal Medicine 08/10/21 [place] [address] [place] [address] [phone] Rheumatology 11/09/22 Anival Ambriz MD [address] [place] [address] Home Care Provider Orthopedics 11/18/22 Néstor Wilson MD [address] [place] [address] [phone] Referring Orthopedics 11/18/22 Cris Del Valle, PT [address] [place] [address] [employer] Post Acute Care 11/19/22 Child And Adolescent Psychologist Relationship Specialty Start Date End Date Timbo Bright MD [address] [place] [address] PCP - General Internal Medicine 08/10/21 Mino Harris MD [address] [place] [address] Rheumatology 11/09/22 Anival Ambriz MD [address] [place] [address] Home Care Provider Orthopedics 11/18/22 Néstor Wilson MD [address] [place] [address] Referring Orthopedics 11/18/22 Cris Del Valle, PT [address] [place] [address] [employer] Post Acute Care 11/19/22 Child And Adolescent Psychologist Relationship Specialty Start Date End Date Timbo Bright MD [address] [place] [address] PCP - General Internal Medicine 08/10/21 Mino Harris MD [address] [place] [address] Rheumatology 11/09/22 Anival Ambriz MD [address] [place], [place] 0569331 Home Care Provider Orthopedics 11/18/22 Néstor Wilson MD [address] [place] [address] Referring Orthopedics 11/18/22 Cris Del Valle, PT [address] [place] [address] [employer] Post Acute Care 11/19/22 Child And Adolescent Psychologist Relationship Specialty Start Date End Date Timbo Bright MD [address] [place] [address] PCP - General Internal Medicine 08/10/21 Mino Harris MD [address] [place] [address] Rheumatology 11/09/22 [place] [address] [place] [address] Home Care Provider Orthopedics 11/18/22 Néstor Wilson MD 9500 [facility], [address] [address] Referring Orthopedics 11/18/22 Cris Del Valle, PT [address] [place] [address] [employer] Post Acute Care 11/19/22 Child And Adolescent Psychologist Relationship Specialty Start Date End Date Timbo Bright MD [address] [place] [address] PCP - General Internal Medicine 08/10/21 Mino Harris MD [address] [place] [address] Rheumatology 11/09/22 Anival Ambriz MD [address] [place] [address] Home Care Provider Orthopedics 11/18/22 Néstor Wilson MD [address] [place] [address] [phone] Referring Orthopedics 11/18/22 Child And Adolescent Psychologist Relationship Specialty Start Date End Date Timbo Bright MD [address] [place] [address] [phone] PCP - General Internal Medicine 08/10/21 Mino Harris MD [address] [place] [id number] Rheumatology 11/09/22 Anival Ambriz MD [address] [place] [place] [address] [phone] Home Care Provider Orthopedics 11/18/22 Néstor Wilson MD [address] [place], [place] [phone] Referring Orthopedics 11/18/22 Child And Adolescent Psychologist Relationship Specialty Start Date End Date Timbo Bright MD [address] [place] [address] [phone] PCP - General Internal Medicine 08/10/21 Mino Harris MD [address] [place] [address] Rheumatology 11/09/22 Anival Ambriz MD [address] [place] [place] [address] Home Care Provider Orthopedics 11/18/22 Néstor Wilson MD [address] [place] [phone] Referring Orthopedics 11/18/22 Child And Adolescent Psychologist Relationship Specialty Start Date End Date Timbo Bright MD [address] [place] [address] PCP - General Internal Medicine 08/10/21 Mino Harris MD [address] [place], [place] [id number] Rheumatology 11/09/22 Anival Ambriz MD [address] [place] [address] Home Care Provider Orthopedics 11/18/22 Néstor Wilson MD [address] [place], [place] [phone] Referring Orthopedics 11/18/22 Child And Adolescent Psychologist Relationship Specialty Start Date End Date Timbo Bright MD [address] [place] [address] 6[address]40 PCP - General Internal Medicine 08/10/21 Mino Harris MD [address] [place], [place] [id number] Rheumatology 11/09/22 Anival Ambriz MD [address] [place] [address] Home Care Provider Orthopedics 11/18/22 Néstor Wilson MD [address] [place] [address] Referring Orthopedics 11/18/22 Child And Adolescent Psychologist Relationship Specialty Start Date End Date Timbo Bright MD [address] [place] [address] 72922 PCP - General Internal Medicine 08/10/21 Mino Harris MD [address] [place], [place] [id number] Rheumatology 11/09/22 Anival Ambriz MD [address] [place] [address] Home Care Provider Orthopedics 11/18/22 Néstor Wilson MD [address] [place] [address] [phone] Referring Orthopedics 11/18/22 Child And Adolescent Psychologist Relationship Specialty Start Date End Date Timbo Bright MD [address] [place] [address] 64601 PCP - General Internal Medicine 08/10/21 Mino Harris MD [address] [place], [place] [id number] Rheumatology 11/09/22 Anival Ambriz MD [address] [place] [address] Home Care Provider Orthopedics 11/18/22 Néstor Wilson MD [address] [place] [address] [phone] Referring Orthopedics 11/18/22 Child And Adolescent Psychologist Relationship Specialty Start Date End Date Timbo Bright MD [address] [place] [address] [phone] PCP - General Internal Medicine 08/10/21 Mino Harris MD [address] [place], [place] [id number] Rheumatology 11/09/22 Anival Ambriz MD [address] [place] [address] Home Care Provider Orthopedics 11/18/22 Néstor Wilson MD [address] [place] [address] [phone] Referring Orthopedics 11/18/22 Child And Adolescent Psychologist Relationship Specialty Start Date End Date Timbo Bright MD [address] [place] [address] 66878 PCP - General Internal Medicine 08/10/21 Mino Harris MD [address] [place] [address] Rheumatology 11/09/22 Anival Ambriz MD [address] [place] [address] Home Care Provider Orthopedics 11/18/22 Né[place] [address] [place] [address] Referring Orthopedics 11/18/22 Child And Adolescent Psychologist Relationship Specialty Start Date End Date Timbo Bright MD [facility] [place] [address] PCP - General Internal Medicine 08/10/21 Mino Harris MD [address] [place] [address] Rheumatology 11/09/22 Anival Ambriz MD [address] [place] [address] Home Care Provider Orthopedics 11/18/22 Néstor Wilson MD [address] [place] [address] Referring Orthopedics 11/18/22 Cris Del Valle, PT [address] [place] [address] [employer] Cleaner Post Acute Care 11/19/22 08/30/23 Child And Adolescent Psychologist Relationship Specialty Start Date End Date Timbo Bright MD [address] [place] [address] 0[address]45 PCP - General Internal Medicine 08/10/21 Mino Harris MD [facility] [place] [address] Rheumatology 11/09/22 Anival Ambriz MD [address] [place] [address] Home Care Provider Orthopedics 11/18/22 Néstor Wilson MD [facility] [address] [address] Referring Orthopedics 11/18/22 Child And Adolescent Psychologist Relationship Specialty Start Date End Date Timbo Bright MD [address] [place] [address] 97368 PCP - General Internal Medicine 08/10/21 Mino Harris MD [address] [place] [address] Rheumatology 11/09/22 Anival Ambriz MD [address] [place] [address] Home Care Provider Orthopedics 11/18/22 Néstor Wilson MD [address] [place] [phone] Referring Orthopedics 11/18/22 Cris Del Valle, PT [address] [place] [address] [employer]er Post Acute Care 11/19/22 08/30/23 Child And Adolescent Psychologist Relationship Specialty Start Date End Date Timbo Bright MD [address] [place] [address] PCP - General Internal Medicine 08/10/21 Mino Harris MD [facility] [place] [address] Rheumatology 11/09/22 Anival Ambriz MD [address] [place] [address] Home Care Provider Orthopedics 11/18/22 Néstor Wilson MD [address] [place] [phone] Referring Orthopedics 11/18/22 Cris Del Valle, PT [address] [place] [address] [employer]er Post Acute Care 11/19/22 08/30/23 Child And Adolescent Psychologist Relationship Specialty Start Date End Date Timbo Bright MD [address] [place], [place] 083621 PCP - General Internal Medicine 08/10/21 Cris Del Valle, PT [address] [place] [address] [employer]er Post Acute Care 07/03/21 11/17/22 Anival Ambriz MD [address] [place] [address] Home Care Provider Orthopedics 06/19/22 11/17/22 [place] [address] Referring Orthopedics 06/19/22 11/17/22 Souleymane Celis, PT [address] [place] [phone] [employer]er Post Acute Care 06/19/22 11/17/22 Child And Adolescent Psychologist Relationship Specialty Start Date End Date Wilson Peguero MD [address] [place] [address] PCP - General Family Medicine 12/27/20 08/07/21 Anival Ambriz MD [address] [place] [address] Home Care Provider Orthopedics 07/03/21 06/18/22 Anival Ambriz MD [address] [place] [address] Referring Orthopedics 07/03/21 06/18/22 Cris Del Valle, PT [address] [place] [address] [employer]er Post Acute Care 07/03/21 11/17/22 Child And Adolescent Psychologist Relationship Specialty Start Date End Date Timbo Bright MD [address] [place] [address] PCP - General Internal Medicine 08/10/21 Mino Harris MD [address] [place], [place] [id number] Rheumatology 11/09/22 Anival Ambriz MD [address] [place] [address] Home Care Provider Orthopedics 11/18/22 Néstor Wilson MD [address] [place], [place] [phone] Referring Orthopedics 11/18/22 Child And Adolescent Psychologist Relationship Specialty Start Date End Date Timbo Bright MD [address] [place] [address] PCP - General Internal Medicine 08/10/21 Mino Harris MD [address] [place] [address] Rheumatology 11/09/22 Anival Ambriz MD [address] [place] [address] Home Care Provider Orthopedics 11/18/22 Néstor Wilson MD [address] [place] [address] [phone] Referring Orthopedics 11/18/22 Child And Adolescent Psychologist Relationship Specialty Start Date End Date Timbo Bright MD [address] [place] [address] 28049 PCP - General Internal Medicine 08/10/21 Mino Harris MD [address] [place], [place] [id number] Rheumatology 11/09/22 [place] [address] [place] [address] Home Care Provider Orthopedics 11/18/22 Néstor Wilson MD [address] [place] [address] [phone] Referring Orthopedics 11/18/22 Ev Berger APRN.DIE CUTTING MACHINE OPERATOR [address] [place] [address] [phone] Motor Coach Tour Operator Internal Medicine 08/30/24 Goldie Villafuerte APRN.LINOTYPE MACHINIST APPRENTICE [address] [place] [address] [phone] Motor Coach Tour Operator Internal Medicine 08/30/24 Child And Adolescent Psychologist Relationship Specialty Start Date End Date Timbo Bright MD [address] [place] [address] 48668 PCP - General Internal Medicine 08/10/21 Mino Harris MD [address] [place], [place] [id number] Rheumatology 11/09/22 [place] [address] [place] [address] [phone] Home Care Provider Orthopedics 11/18/22 Néstor Wilson MD [address] [place] [address] [phone] Referring Orthopedics 11/18/22 Ev Berger APRN.DIE CUTTING MACHINE OPERATOR [address] [place] [address] [phone] Motor Coach Tour Operator Internal Medicine 08/30/24 Goldie Villafuerte APRN.LINOTYPE MACHINIST APPRENTICE [address] [place] [address] [phone] Motor Coach Tour Operator Internal Medicine 08/30/24 Child And Adolescent Psychologist Relationship Specialty Start Date End Date Timbo Bright MD [address] [place] [address] 86709 PCP - General Internal Medicine 08/10/21 Mino Harris MD [address] [place] [address] [phone] Rheumatology 11/09/22 [place] [address] [place] [address] 73[address] Home Care Provider Orthopedics 11/18/22 Néstor Wilson MD [address] [place] [address] [phone] Referring Orthopedics 11/18/22 Ev Berger APRN.DIE CUTTING MACHINE OPERATOR [address] [place] [address] [phone] Motor Coach Tour Operator Internal Medicine 08/30/24 Goldie Villafuerte APRN.LINOTYPE MACHINIST APPRENTICE [address] [place] [address] [phone] Motor Coach Tour Operator Internal Medicine 08/30/24 Child And Adolescent Psychologist Relationship Specialty Start Date End Date Timbo Bright MD [facility] [place] [address] PCP - General Internal Medicine 08/10/21 Mino Harris MD [address] [place], [place] [phone] Rheumatology 11/09/22 Anival Ambriz MD [address] [place] [place] [address] [phone] Home Care Provider Orthopedics 11/18/22 Néstor Wilson MD [address] [place] [address] [phone] Referring Orthopedics 11/18/22 Ev Berger, TRASH COLLECTOR.DIE CUTTING MACHINE OPERATOR [address] [place] [address] [phone] Motor Coach Tour Operator Internal Medicine 08/30/24 Goldie Villafuerte TRASH COLLECTOR.LINOTYPE MACHINIST APPRENTICE [address] [place] [address] [phone] Motor Coach Tour Operator Internal Medicine 08/30/24 Child And Adolescent Psychologist Relationship Specialty Start Date End Date Timbo Bright MD [address] [place] [address] 83789 PCP - General Internal Medicine 08/10/21 Mino Harris MD [address] [place], [place] [phone] Rheumatology 11/09/22 Anival Ambriz MD [address] [place] [address] Home Care Provider Orthopedics 11/18/22 Néstor Wilson MD [address] [place] [address] [phone] Referring Orthopedics 11/18/22 Ev Berger, TRASH COLLECTOR.DIE CUTTING MACHINE OPERATOR [facility] [place] [address] Motor Coach Tour Operator Internal Medicine 08/30/24 Goldie Villafuerte TRASH COLLECTOR.LINOTYPE MACHINIST APPRENTICE [address] [place] [address] [phone] Motor Coach Tour Operator Internal Medicine 12/14/24 Child And Adolescent Psychologist Relationship Specialty Start Date End Date Timbo Bright MD [address] [place] [address] 62524 PCP - General Internal Medicine 08/10/21 Mino Harris MD [address] [place] [address] [phone] Rheumatology 11/09/22 Anival Ambriz MD [address] [place] [address] Home Care Provider Orthopedics 11/18/22 Néstor Wilson MD [address] [place] [address] [phone] Referring Orthopedics 11/18/22 Ev Berger, ROB.DIE CUTTING MACHINE OPERATOR [facility] [place] [address] Motor Coach Tour Operator Internal Medicine 08/30/24 Goldie Villafuerte TRASH COLLECTOR.LINOTYPE MACHINIST APPRENTICE [address] [place] [address] Motor Coach Tour Operator Internal Medicine 12/14/24 Child And Adolescent Psychologist Relationship Specialty Start Date End Date Timbo Bright MD [address] [place] [address] PCP - General Internal Medicine 08/10/21 Mino Harris MD [address] [place], [place] [phone] Rheumatology 11/09/22 Anival Ambriz MD [address] [place] [place] [address] [phone] Home Care Provider Orthopedics 11/18/22 Néstor Wilson MD [address] [place] [address] [phone] Referring Orthopedics 11/18/22 Ev Berger APRN.DIE CUTTING MACHINE OPERATOR [address] [place] [address] Motor Coach Tour Operator Internal Medicine 08/30/24 Goldie Villafuerte APRN.LINOTYPE MACHINIST APPRENTICE [address] [place] [address] Motor Coach Tour Operator Internal Medicine 12/14/24 Child And Adolescent Psychologist Relationship Specialty Start Date End Date iTmbo Bright MD [address] [place] [address] PCP - General Internal Medicine 08/10/21 Mino Harris MD [address] [place] [address] Rheumatology 11/09/22 Anival Ambriz MD [address] [place] [address] Home Care Provider Orthopedics 11/18/22 Né[place] [address] [place] [address], [address] [phone] Referring Orthopedics 11/18/22 Ev Berger APRN.DIE CUTTING MACHINE OPERATOR [address] [place], [place] [phone] Motor Coach Tour Operator Internal Medicine 08/30/24 Goldie Villafuerte APRN.LINOTYPE MACHINIST APPRENTICE [address] [place], [place] [phone] Motor Coach Tour Operator Internal Medicine 12/14/24 Goals (unrecognized section and content) Goals may be documented in a n alternate sectionGoals may be documented in an alternate section No data available for this section FOR RECORDS PERTAINING TO PATIENTS WHO ARE OR HAVE BEEN ENROLLED IN A CHEMICAL DEPENDENCY/SUBSTANCEABUSE PROGRAM, SOME INFORMATION MAY BE OMITTED. This clinical summary was aggregated from multiple sources. Caution should be exercised in using it in the provision of clinical care. This summary normalizes information from multiple sources, and as a consequence, information in this document may materially change the coding, format and clinical context of patient data. In addition, data may be omitted in some cases. CLINICAL DECISIONS SHOULD BE BASED ON THE PRIMARY CLINICAL RECORDS. [facility] [email or web address] provides no warranty or guarantee of the accuracy or completeness of information in this document.
[2025-03-03 03:17] LABS: Absolute Lymphocyte Count 2.97 X10^3/uL (0.83-4.51); Absolute Neutrophil Count 5.3 X10^3/uL (2.0-7.7); Basophil# 0.05 X10^3/uL; Basophil% 0.5 % (0-1); Eosinophil# 0.83 X10^3/uL; Eosinophils% 8.2 % (0-5); Hematocrit 34.4 % (37-47); Hemoglobin 11.2 g/dL (12.0-15.0); Lymphocyte # 2.97 X10^3/ul (0.83-4.51); Lymphocyte % 29.4 % (19-41); Mean Corp Hgb Conc 32.6 g/dL (32-36); Mean Corpuscular Hgb 28.4 pg (27.0-32.0); Mean Corpuscular Volume 87.3 fL (81-99); Monocyte# 0.92 X10^3/uL; Monocyte% 9.1 % (0-10); NRBC Flagged by Analyzer 0 % (0-5); Neutrophil # 5.32 X10^3/uL (2.7-7.7); Neutrophil % 52.6 % (47-70); Platelet Count 375 K/mm3 (150-450); RBC Distribution Width CV 15.1 % (11.6-14.6); RBC Distribution Width SD 48.5 fl (35.1-43.9); Red Blood Count 3.94 M/mm3 (4.2-5.4); White Blood Count 10.1 K/mm3 (4.4-11.0)
[2025-03-03 03:37] LABS: ALB/GLOB Ratio 1.1 RATIO (0.9-2.4); AST(SGOT) 26 U/L (<=31); Alanine Aminotransfer ALT/SGPT 14 U/L (<=34); Albumin, Serum 4.1 g/dL (3.4-4.8); Alkaline Phosphatase 134 U/L (35-104); Anion Gap 12 (5-15); BUN 20 mg/dL (4-19); BUN/Creat Ratio 29.8 RATIO (10-20); Calcium,Total 9.5 mg/dL (7.6-11.0); Carbon Dioxide 24.6 mmol/L (21.0-32.0); Chloride 100 mmol/L (98-108); Creatinine, Serum 0.66 mg/dL (0.70-1.20); EST Glomerular Filtration Rate 99 (>60); Estimated Creatinine Clearance 86.06 ml/min (50-250); Globulin 3.8 g/dL (2.2-4.2); Glucose 113 mg/dL (70-99); Potassium 3.7 mmol/L (3.3-5.1); Protein, Total 7.9 g/dL (5.9-8.4); Sodium Level 137 mmol/L (133-145); Total Bilirubin 0.23 mg/dL (0.00-1.30)
[2025-03-03 04:08] VITALS: BP 113/65; PULSE 78; RESP 16; TEMP 36.6; O2SAT 97
== END 2025-03-03 04:09 | disposition home or self-care (01) ==
PROVIDERS: Emergency Provider Emergency Medicine; PCP Internal Medicine; Visit Provider Emergency Medicine
DX: R42 Dizziness and giddiness (principal); M06.9 Rheumatoid arthritis, unspecified; E03.9 Hypothyroidism, unspecified; Z79.890 Hormone replacement therapy; Z79.899 Other long term (current) drug therapy; Z79.1 Long term (current) use of non-steroidal anti-inflammatories (NSAID)
CPT/HCPCS: 70450; 80053; 85025; 93005; 99284; A4216